=== PATIENT | female | born 1940 | race Hispanic/Latino ===

== ENCOUNTER 2017-01-04 07:49 | Day surgery (SDC) | payer MEDICARE ==
[2017-01-03 07:47] VITALS: BMI 39.1
[2017-01-04 08:21] LABS: ADD MANUAL DIFF? NO; BASO # 0.01 K/mm3 (0.0-2.0); BASO % 0.2 % (0.0-3.0); EOS # 0.2 (0.0-0.7); EOS % 3.1 % (1.5-5.0); GRAN # 3.27 (1.4-6.5); LYMPH # 0.9 (1.2-3.4); MEAN CELL VOLUME 89.1 fL (80.0-105.0); MEAN CORPUSCULAR HEMOGLOBIN 29.6 pg (25.0-35.0); MEAN CORPUSCULAR HGB CONC 33.3 g/dl (31.0-37.0); MEAN PLATELET VOLUME 9.6 fl (7.0-11.0); MONO # 0.6 (0.1-0.6); MONO % 11.7 % (1.0-6.0); PLATELET COUNT 227 10^3/uL (120.0-450.0); RED CELL DISTRIBUTION WIDTH 15.6 % (11.5-14.5); WHITE BLOOD COUNT 4.9 10^3/ul (4.5-11.0)
[2017-01-04 08:31] LABS: INR 0.97 (0.93-1.08); PARTIAL THROMBOPLASTIN TIME 27.9 Seconds (23.7-30.8)
[2017-01-04 08:39] LABS: BLOOD UREA NITROGEN 19 mg/dL (7-21); CALCIUM 9.5 mg/dL (8.4-10.5); CARBON DIOXIDE 27 mmol/L (21-33); CHLORIDE 101 mmol/L (98-107); GFR AFRICAN-AMERICAN > 60; GLUCOSE,RANDOM 103 mg/dL (70-110); POTASSIUM 4.4 mmol/L (3.6-5.0); SODIUM 137 mmol/L (132-148)
[2017-01-04] MEDS ORDERED: Lidocaine 2% Inj (20ml) ONE (10:30)
[2017-01-04] MEDS ORDERED: Iohexol 350mgl/ml 50 ML ONE (10:31)
[2017-01-04] MEDS ORDERED: Midazolam 2 MG/2 ML VIAL ONE ×2 (10:31→11:10)
[2017-01-04] MEDS ORDERED: Iodixanol 320 MG/ML 200 ML BOTTLE IV ONE (10:32)
[2017-01-04] MEDS ORDERED: Sodium Chloride 0.9% 1,000 ML IV SCH (11:45)
--- NOTE | 2017-01-04 11:48 | CARDCATH ---
PROCEDURE DATE: 01/04/2017 HISTORY: The patient is a 76-year-old woman who presents with chest pain. A stress test was abnorma l. Noninvasive testing reveals mild to moderate aortic insufficiency. Her cardiac risk factors include hypertension, hypercholesterolemia, diabetes mellitus and is a forme r heavy smoker. PROCEDURE: Left heart catheterization with coronary angiography and left ventriculogram. The right femoral artery was cannulated with a 6-Czech sheath. There were no complications. Findings on catheterization revealed a left ventricle that contracted normally. Estimated ejection f raction is 60%. Her coronary anatomy revealed a right dominant circulation. The RCA revealed intimal irregularities without significant stenosis. The left main artery was unremarkable. The circumflex artery revealed a 50% stenosis in its mid portion. The LAD was a long vessel with marked diffuse disease in the apical and distal regions of the LAD. T here was diffuse atherosclerosis throughout its course, including 1 discrete lesion that was 90-95% s tenosed, but was in the apical region of the LAD. Diagonal vessels revealed intimal irregularities without significant stenosis. Angio-Seal was used to close the femoral artery site. The patient tolerated the procedure well. IN SUMMARY: 1. The procedure revealed single-vessel coronary artery disease with the distal left anterior descen ding that was diffusely diseased, including a 90% stenoses distally. 2. This vessel cannot be angioplastied unless she fails medical therapy. The caliber of the vessel is small, is too small for a stent. 3. Left ventricular function is normal. Given these findings, we will continue treatment with medical therapy. A cardiac risk reduction prog brittney is important. We will obtain a yearly echo to follow her aortic insufficiency as well as her LV dimensions. Tello Talbert MD cc: [facility] TT: 01/04/2017 11:48:41 tn
[2017-01-04 12:07] VITALS: TEMP 97.7
[2017-01-04 14:20] VITALS: RESP 18
[2017-01-04 15:09] VITALS: O2SAT 93
[2017-01-04 16:23] VITALS: BP 139/66; PULSE 72
== END 2017-01-04 17:05 | disposition home or self-care (01) ==
LOC: CATH 07:49
PROVIDERS: ATTEND Internal Medicine Cardiovascular Disease
DX: I25.10 Atherosclerotic heart disease of native coronary artery without angina pectoris (principal); I35.1 Nonrheumatic aortic (valve) insufficiency; I10 Essential (primary) hypertension; E78.00 Pure hypercholesterolemia, unspecified; E11.8 Type 2 diabetes mellitus with unspecified complications; Z87.891 Personal history of nicotine dependence
CPT/HCPCS: 36415; 80048; 85025; 85610; 85730; 86850; 86900; 93458; 99152; C1760; C1769; C2629; J1644; J2250; J3010; J7040 ×2

== ENCOUNTER 2018-07-28 15:06 | Inpatient (IN) | payer MEDICARE ==
[2018-07-28 15:15] VITALS: BMI 25.7
--- NOTE | 2018-07-28 16:27 | ED PDOC ---
Arrival/HPI - General Chief Complaint: Psychiatric Evaluation Time Seen by Provider: 07/28/18 15:45 - History of Present Illness Narrative History of Present Illness (Text): 77 y/o F c PMHx HTN, DM, arthritis p/w acute delusions since yesterday morning at 8am. Daughter in law states that patient was normal until she received a letter from [employer] which was simply informing the patient that her change of address was received. Daughter in law states that from that time on, the patient has quickly come to believe that she was being evicted and all the people around her are "in on it." She was taken to family's neurologist Dr. Dougherty and she believes that he is not truly a doctor. Otherwise, the patient denies any pain, fever, vomiting, dyspnea. No recent change in medications. She did recently move into her new home 2 months ago. Past Medical History - Infectious Disease Hx of Infectious Diseases: None - Tetanus Immunization Tetanus Immunization: Unknown - Reproductive Menopause: Yes - Cardiac Hx Hypertension: Yes - Pulmonary Hx Chronic Obstructive Pulmonary Disease (COPD): Yes - Neurological Hx Paralysis: No - Endocrine/Metabolic Hx Diabetes Mellitus Type 2: Yes - Hematological/Oncological Hx Blood Transfusions: No Hx Blood Transfusion Reaction: No - Musculoskeletal/Rheumatological Hx Musculoskeletal Disorders: No Hx Arthritis: Yes - Psychiatric Hx Emotional Abuse: No Hx Physical Abuse: No Hx Substance Use: No - Surgical History Hx Orthopedic Surgery: Yes (LEFT KNEE) - Anesthesia Hx Anesthesia Reactions: No Hx Malignant Hyperthermia: No - Suicidal Assessment Feels Threatened In Home Enviroment: No Family/Social History Family/Social History: Unknown Family HX Smoking Status: Unknown If Ever Smoked Hx Alcohol Use: No Hx Substance Use: No Hx Substance Use Treatment: No Allergies/Home Meds Allergies/Adverse Reactions: Allergies No Known Allergies Allergy (Verified 02/12/14 12:07) Home Medications: Home Meds Medication Instructions Recorded Confirmed Losartan [Cozaar] 100 mg PO DAILY 02/12/14 04/07/18 amLODIPine [Norvasc] 5 mg PO DAILY 12/31/16 04/07/18 metFORMIN [glucOPHAGE] 500 mg PO BID 12/31/16 04/07/18 Cholecalciferol (Vitamin D3) 2,000 unit PO DAILY 01/03/17 04/07/18 [Vitamin D3] Metoprolol Tartrate [Lopressor] 50 mg PO DAILY 04/07/18 04/07/18 Mirabegron [Myrbetriq] 50 mg PO DAILY 04/07/18 04/07/18 Review of Systems - Review of Systems Systems not reviewed;Unavailable: Altered Mental Status Physical Exam - Physical Exam Narrative Physical Exam (Text): Gen: NAD Head: NC/AT Eyes: PERRL ENT: MMM Neck: Supple Chest: No tenderness CV: Regular rate Lungs: CTA b/l Abd: Soft, NT Back: No CVA tenderness Skin: No rash Extremities: Bilateral lower extremity edema, pitting Neuro: Alert, oriented x 3 Psych: Tangential speech Vital Signs Temp Pulse Resp BP Pulse Ox 07/28/18 15:12 98.0 F 74 18 131/78 98 Medical Decision Making ED Course and Treatment: EKG Sinus rhythm, 74 bpm, RBBB, unchanged from previous. No ST elevations. Glucose found to be 38, improved to 150 after D50 but without change in delusions. Troponin elevated. Awaiting CT Head prior to ASA administration. Signed out to ED night team. - RAD Interpretation Radiology Orders: 07/28/18 16:20 HEAD W/O CONTRAST [CT] Stat CHEST PORTABLE [RAD] Stat Disposition/Present on Arrival - Present on Arrival Any Indicators Present on Arrival: No History of DVT/PE: No History of Uncontrolled Diabetes: No Urinary Catheter: No History of Decub. Ulcer: No History Surgical Site Infection Following: None - Disposition Have Diagnosis and Disposition been Completed?: No Diagnosis: Elevated troponin, Hypoglycemia Disposition Time: 18:46 Condition: GUARDED Forms: [employer] (Palestinian)
[2018-07-28 16:36] LABS: GRAN # 4.97 (1.4-6.5); GRAN % 79.9 % (50.0-68.0); HEMOGLOBIN 10.8 g/dL (12.0-16.0); LYMPH # 0.8 (1.2-3.4); LYMPH % 12.9 % (22.0-35.0); MEAN CELL VOLUME 86.5 fl (80.0-105.0); MEAN CORPUSCULAR HEMOGLOBIN 28.6 pg (25.0-35.0); MEAN CORPUSCULAR HGB CONC 33.1 g/dl (31.0-37.0); MEAN PLATELET VOLUME 8.3 fl (7.0-11.0); MONO # 0.5 (0.1-0.6); MONO % 7.2 % (1.0-6.0); RBC 3.77 10^6/uL (3.5-6.1); RED CELL DISTRIBUTION WIDTH 18.9 % (11.5-14.5); WHITE BLOOD COUNT 6.2 10^3/uL (4.5-11.0)
[2018-07-28 16:52] LABS: ALB/GLOB RATIO 0.8 (1.1-1.8); ALBUMIN 2.6 g/dL (3.0-4.8); CALCIUM 8.9 mg/dL (8.4-10.5)
[2018-07-28 17:23] LABS: TROPONIN I 0.18 ng/mL
[2018-07-28] MEDS ORDERED: Dextrose 50% SYRINGE Inj (50 ml) IVP STA (17:27)
[2018-07-28 18:07] LABS: PARTIAL THROMBOPLASTIN TIME 37.4 Seconds (25.1-36.5); PROTHROMBIN TIME 11.4 SECONDS (9.4-12.5)
--- NOTE | 2018-07-28 19:01 | CT ---
Date of service: 07/28/2018 PROCEDURE: CT HEAD WITHOUT CONTRAST. HISTORY: altered mental status COMPARISON: None available. TECHNIQUE: Axial computed tomography images were obtained through the head/brain without intravenous contrast. Radiation dose: Total exam DLP = 1132.87 mGy-cm. This CT exam was performed using one or more of the following dose reduction techniques: Automated exposure control, adjustment of the mA and/or kV according to patient size, and/or use of iterative reconstruction technique. FINDINGS: HEMORRHAGE: No intracranial hemorrhage. BRAIN: No mass effect or edema. Moderate atrophy and volume loss is noted. Moderate white matter changes are noted likely represent chronic microvascular ischemic disease. VENTRICLES: Unremarkable. No hydrocephalus. CALVARIUM: Unremarkable. PARANASAL SINUSES: Unremarkable as visualized. No significant inflammatory changes. MASTOID AIR CELLS: Unremarkable as visualized. No inflammatory changes. OTHER FINDINGS: None. IMPRESSION: Moderate volume loss and chronic microvascular ischemic disease. No evidence of acute intracranial hemorrhage mass effect or midline shift.
[2018-07-28 19:10] LABS: URINE APPEARANCE SLIGHT-CLOUDY (CLEAR); URINE BILIRUBIN MODERATE (NEGATIVE); URINE BLOOD SMALL (NEGATIVE); URINE COLOR YELLOW (YELLOW); URINE GLUCOSE (UA) NEGATIVE (NEGATIVE); URINE LEUKOCYTE ESTERASE SMALL Leu/uL (NEGATIVE); URINE PROTEIN 30 mg/dL (<30 mg/dL); URINE UROBILINOGEN 0.2 E.U./dL (<1 E.U./dL)
[2018-07-28 19:16] LABS: URINE BACTERIA FEW (NEG); URINE HYALINE CAST 0 - 2 /hpf
[2018-07-28 19:32] LABS: BARBITURATES, UR NEGATIVE (NEGATIVE); BENZODIAZEPINES, UR NEGATIVE (NEGATIVE); OPIATES, UR NEGATIVE (NEGATIVE); PHENCYCLIDINE, UR NEGATIVE (NEGATIVE)
--- NOTE | 2018-07-28 19:34 | ED PDOC ---
Physical Exam Vital Signs Temp Pulse Resp BP Pulse Ox 07/28/18 15:12 98.0 F 74 18 131/78 98 Medical Decision Making ED Course and Treatment: 07/28/18 19:33 Patient endorsed to me by . pending CT scan result. Patient has a history of recent paranoid and delusional behaviour and was advised to come to Emergency department for further evaluation. Patient had an EKG showing RBBB noted earlier and positive troponin. Still waiting CT result prior to final disposition. 07/28/18 19:47 Discussed case with biomedical field service engineer and , who is aware of and agrees to admit patient under hospitalist service. Discussed with and will heparinize. 07/28/18 20:01 CT HEAD WITHOUT CONTRAST: Dictator : Elder Flores MD FINDINGS: HEMORRHAGE:No intracranial hemorrhage. BRAIN:No mass effect or edema. Moderate atrophy and volume loss is noted. Moderate white matter changes are noted likely represent chronic microvascular ischemic disease. VENTRICLES:Unremarkable. No hydrocephalus. CALVARIUM:Unremarkable. PARANASAL SINUSES:Unremarkable as visualized. No significant inflammatory changes. MASTOID AIR CELLS:Unremarkable as visualized. No inflammatory changes. OTHER FINDINGS:None. IMPRESSION: Moderate volume loss and chronic microvascular ischemic disease. No evidence of acute intracranial hemorrhage mass effect or midline shift. - Lab Interpretations Lab Results: 07/28/18 16:28 07/28/18 16:28 Lab Results 07/28/18 19:05: Urine Opiates Screen Negative, Urine Methadone Screen Negative, Ur Barbiturates Screen Negative, Ur Phencyclidine Scrn Negative, Ur Amphetamines Screen Negative, U Benzodiazepines Scrn Negative, U Oth Cocaine Metabols Negati ve, U Cannabinoids Screen Pending 07/28/18 19:05: Urine Color Yellow, Urine Appearance Slight-cloudy, Urine pH 6.0, Ur Specific [place] 1.025, Urine Protein 30 H, Urine Glucose (UA) Negative, Urine Ketones 15 H, Urine Blood Small H, Urine Nitrate Negative, Urine Bilirubin Moderate H, Urine Urobilinogen 0.2, Ur Leukocyte Esterase Small H, Urine RBC 1 - 3, Urine WBC 2 - 5, Ur Epithelial Cells 1 - 3, Urine Bacteria Few, Hyaline Casts 0 - 2 07/28/18 17:54: POC Glucose (mg/dL) 150 H 11/05/18 17:46: PT 11.4, INR 1.00, APTT 37.4 H 07/28/18 16:28: Sodium 135, Potassium 3.7, Chloride 102, Carbon Dioxide 21, Anion Gap 16, BUN 29 H, Creatinine 1.3 H, Est GFR ( Amer) 48, Est GFR (Non-Af Amer) 40, Random Glucose 38 L* D, Calcium 8.9, Phosphorus 3.4, Magnesium 2.2, Total Bilirubin 0.5, AST 42 H D, ALT 47, Alkaline Phosphatase 99, Total Creatine Kinase 98, Troponin I 0.18 H*, Total Protein 5.9, Albumin 2.6 L, Globulin 3.3, Albumin/Globulin Ratio 0.8 L, Lipase 230, B-Hydroxybutyrate Pending 07/28/18 16:28: WBC 6.2, RBC 3.77, Hgb 10.8 L, Hct 32.6 L, MCV 86.5, MCH 28.6, MCHC 33.1, RDW 18.9 H, Plt Count 170, MPV 8.3, Gran % 79.9 H, Lymph % (Auto) 12.9 L, [place] % (Auto) 7.2 H, Eos % (Auto) 0.0 L, Baso % (Auto) 0.0, Gran # 4.97, Lymph # (Auto) 0.8 L, [place] # (Auto) 0.5, Eos # (Auto) 0.0, Baso # (Auto) 0.00 - RAD Interpretation Radiology Orders: 07/28/18 16:20 HEAD W/O CONTRAST [CT] Stat CHEST PORTABLE [RAD] Stat - Medication Orders Current Medication Orders: Discontinued Medications Dextrose (Dextrose 50% Inj) 50 ml IVP STAT STA Stop: 07/28/18 17:28 Last Admin: 07/28/18 18:37 Dose: 50 ml IVP Administration Document 07/28/18 18:37 MR (Rec: 07/28/18 18:37 MR [id number]) Charges for Administration # of IVP Administrations 1 - Scribe Statement The provider has reviewed the documentation as recorded by the Scribe Jez Shay Provider Scribe Attestation: All medical record entries made by the Scribe were at my direction and personally dictated by me. I have reviewed the chart and agree that the record accurately reflects my personal performance of the history, physical exam, medical decision making, and the department course for this patient. I have also personally directed, reviewed, and agree with the discharge instructions and disposition. Disposition/Present on Arrival - Present on Arrival Any Indicators Present on Arrival: No History of DVT/PE: No History of Uncontrolled Diabetes: No Urinary Catheter: No History of Decub. Ulcer: No History Surgical Site Infection Following: None - Disposition Have Diagnosis and Disposition been Completed?: Yes Diagnosis: Elevated troponin, Hypoglycemia, Psychosis, NSTEMI (non-ST elevated myocardial infarction) Disposition: HOSPITALIZED Disposition Time: 19:55 Patient Plan: Admission Patient Problems: Current Active Problems Problem Status Onset Elevated troponin Acute Hypoglycemia Acute Psychosis Acute Condition: GUARDED Forms: [employer] (Nauruan)
[2018-07-28] MEDS: Heparin25000 units/250ml 1/2NS 25,000 UNITS/250 ML BAG IV SCH (20:46)
[2018-07-28 22:04] LABS: IRON 23 ug/dL (45-180)
--- NOTE | 2018-07-28 22:07 | CP.PCM.HP ---
History of Present Illness - History of Present Illness History of Present Illness: Saul Evans DO, PGY-1 Hospitalist Admission History and Physical for Dr. Aaron Bautista CC: Altered mental status HPI: Ms. Arango is a 77 yo F with known PMH of HTN, DM2, and OA who presents to ED with family for altered mental status and hallucinations/delusions. Most of history was obtained from prior records as family was not at bedside at the time of my examination. Per family, Ms. Arango had no significant dementia at baseline but suddenly began having worsening delusions this AM. Her daughter in law stated that patient believed that she was being evicted and all the people around her are "in on it." They brought her in to her regular neurologist, Dr. Dougherty who she did not recognize and stated was not her physician. At time of examination, she denied KELLY, blurred vision, CP, SOB, and nausea/vomiting/abdomi nal pain. PMH: HTN, DM2, OA, COPD PSH: L TKA NKA Fam Hx, Soc Hx: unknown, unattainable due to patient altered mental status Home medications: metformin 500 BID, norvasc 5 daily, myrbetriq 50 daily, cozaar 100 daily, lopressor 50 daily, cholcalciferol 2000 u daily Present on Admission - Present on Admission Any Indicators Present on Admission: No History of DVT/PE: No History of Uncontrolled Diabetes: No Urinary Catheter: No Decubitus Ulcer Present: No Review of Systems - Review of Systems Systems not reviewed;Unavailable: Altered Mental Status Past Patient History - Infectious Disease Hx of Infectious Diseases: None - Tetanus Immunizations Tetanus Immunization: Unknown - Past Social History Smoking Status: Unknown If Ever Smoked - CARDIAC Hx Hypertension: Yes - PULMONARY Hx Chronic Obstructive Pulmonary Disease (COPD): Yes - NEUROLOGICAL Hx Paralysis: No - ENDOCRINE/METABOLIC Hx Diabetes Mellitus Type 2: Yes - HEMATOLOGICAL/ONCOLOGICAL Hx Blood Transfusions: No Hx Blood Transfusion Reaction: No - MUSCULOSKELETAL/RHEUMATOLOGICAL Hx Musculoskeletal Disorders: No Hx Arthritis: Yes - PSYCHIATRIC Hx Emotional Abuse: No Hx Physical Abuse: No Hx Substance Use: No - SURGICAL HISTORY Hx Orthopedic Surgery: Yes (LEFT KNEE) - ANESTHESIA Hx Anesthesia Reactions: No Hx Malignant Hyperthermia: No Meds Allergies/Adverse Reactions: Allergies Allergy/AdvReac Type Severity Reaction Status Date / Time No Known Allergies Allergy Verified 02/12/14 12:07 Physical Exam - Constitutional Appears: Confused Additional comments: alert to person, place, but not to time or situation. Was able to state who president is but kept repeatedly saying that "I know you're all keeping me and my sister here no matter what we want." She states that "you are all in on this, I know you're keeping my sister too." - Head Exam Head Exam: ATRAUMATIC, NORMOCEPHALIC - Eye Exam Eye Exam: EOMI, Normal appearance, PERRL - ENT Exam ENT Exam: Mucous Membranes Moist - Neck Exam Neck exam: Positive for: Full Rom, Normal Inspection - Respiratory Exam Respiratory Exam: Clear to Auscultation Bilateral, NORMAL BREATHING PATTERN. absent: Accessory Muscle Use, Decreased Breath Sounds, Rhonchi, Wheezes, Respiratory Distress - Cardiovascular Exam Cardiovascular Exam: REGULAR RHYTHM, RRR, +S1, +S2. absent: Diastolic murmur, Gallop, Rubs, Systolic Murmur - GI/Abdominal Exam GI & Abdominal Exam: Normal Bowel Sounds, Soft. absent: Guarding - Extremities Exam Extremities exam: Positive for: normal inspection. Negative for: pedal edema - Back Exam Back exam: NORMAL INSPECTION - Neurological Exam Neurological exam: Alert, Altered Additional comments: no focal neurological deficit, moving all extremities past midline spontaneously, non-cooperative with CN exam - Psychiatric Exam Psychiatric exam: Agitated - Skin Skin Exam: Dry, Intact, Warm Results - Vital Signs Recent Vital Signs: Last Vital Signs Temp 98.0 F 07/28/18 15:12 Pulse 83 07/28/18 21:44 Resp 18 07/28/18 21:44 BP 117/46 L 07/28/18 21:44 Pulse Ox 99 07/28/18 21:44 - Labs Result Diagrams: 07/28/18 16:28 07/28/18 16:28 Labs: Laboratory Results - last 24 hr 07/28/18 07/28/18 07/28/18 16:28 16:28 17:46 WBC 6.2 RBC 3.77 Hgb 10.8 L Hct 32.6 L MCV 86.5 MCH 28.6 MCHC 33.1 RDW 18.9 H Plt Count 170 MPV 8.3 Gran % 79.9 H Lymph % (Auto) 12.9 L [place] % (Auto) 7.2 H Eos % (Auto) 0.0 L Baso % (Auto) 0.0 Gran # 4.97 Lymph # (Auto) 0.8 L [place] # (Auto) 0.5 Eos # (Auto) 0.0 Baso # (Auto) 0.00 PT 11.4 INR 1.00 APTT 37.4 H Sodium 135 Potassium 3.7 Chloride 102 Carbon Dioxide 21 Anion Gap 16 BUN 29 H Creatinine 1.3 H Est GFR ( Amer) 48 Est GFR (Non-Af Amer) 40 POC Glucose (mg/dL) Random Glucose 38 L* D Calcium 8.9 Phosphorus 3.4 Magnesium 2.2 Total Bilirubin 0.5 AST 42 H D ALT 47 Alkaline Phosphatase 99 Ammonia Total Creatine Kinase 98 Troponin I 0.18 H* Total Protein 5.9 Albumin 2.6 L Globulin 3.3 Albumin/Globulin Ratio 0.8 L Lipase 230 Urine Color Urine Appearance Urine pH Ur Specific [place] Urine Protein Urine Glucose (UA) Urine Ketones Urine Blood Urine Nitrate Urine Bilirubin Urine Urobilinogen Ur Leukocyte Esterase Urine RBC Urine WBC Ur Epithelial Cells Urine Bacteria Hyaline Casts Urine Opiates Screen Urine Methadone Screen Ur Barbiturates Screen Ur Phencyclidine Scrn Ur Amphetamines Screen U Benzodiazepines Scrn U Oth Cocaine Metabols U Cannabinoids Screen 07/28/18 07/28/18 07/28/18 17:54 19:05 19:05 WBC RBC Hgb Hct MCV MCH MCHC RDW Plt Count MPV Gran % Lymph % (Auto) [place] % (Auto) Eos % (Auto) Baso % (Auto) Gran # Lymph # (Auto) [place] # (Auto) Eos # (Auto) Baso # (Auto) PT INR APTT Sodium Potassium Chloride Carbon Dioxide Anion Gap BUN Creatinine Est GFR ( Amer) Est GFR (Non-Af Amer) POC Glucose (mg/dL) 150 H Random Glucose Calcium Phosphorus Magnesium Total Bilirubin AST ALT Alkaline Phosphatase Ammonia Total Creatine Kinase Troponin I Total Protein Albumin Globulin Albumin/Globulin Ratio Lipase Urine Color Yellow Urine Appearance Slight-cloudy Urine pH 6.0 Ur Specific [place] 1.025 Urine Protein 30 H Urine Glucose (UA) Negative Urine Ketones 15 H Urine Blood Small H Urine Nitrate Negative Urine Bilirubin Moderate H Urine Urobilinogen 0.2 Ur Leukocyte Esterase Small H Urine RBC 1 - 3 Urine WBC 2 - 5 Ur Epithelial Cells 1 - 3 Urine Bacteria Few Hyaline Casts 0 - 2 Urine Opiates Screen Negative Urine Methadone Screen Negative Ur Barbiturates Screen Negative Ur Phencyclidine Scrn Negative Ur Amphetamines Screen Negative U Benzodiazepines Scrn Negative U Oth Cocaine Metabols Negative U Cannabinoids Screen Negative 07/28/18 20:30 WBC RBC Hgb Hct MCV MCH MCHC RDW Plt Count MPV Gran % Lymph % (Auto) [place] % (Auto) Eos % (Auto) Baso % (Auto) Gran # Lymph # (Auto) [place] # (Auto) Eos # (Auto) Baso # (Auto) PT INR APTT Sodium Potassium Chloride Carbon Dioxide Anion Gap BUN Creatinine Est GFR ( Amer) Est GFR (Non-Af Amer) POC Glucose (mg/dL) Random Glucose Calcium Phosphorus Magnesium Total Bilirubin AST ALT Alkaline Phosphatase Ammonia < 9 L Total Creatine Kinase Troponin I Total Protein Albumin Globulin Albumin/Globulin Ratio Lipase Urine Color Urine Appearance Urine pH Ur Specific [place] Urine Protein Urine Glucose (UA) Urine Ketones Urine Blood Urine Nitrate Urine Bilirubin Urine Urobilinogen Ur Leukocyte Esterase Urine RBC Urine WBC Ur Epithelial Cells Urine Bacteria Hyaline Casts Urine Opiates Screen Urine Methadone Screen Ur Barbiturates Screen Ur Phencyclidine Scrn Ur Amphetamines Screen U Benzodiazepines Scrn U Oth Cocaine Metabols U Cannabinoids Screen - EKG Data EKG Interpreted by: ER Physician EKG shows normal: Sinus rhythm Rate: Normal - EKG Data Interpretation: Other (RBBB) Assessment & Plan - Assessment and Plan (Free Text) Assessment: 77 yo F with PMH of HTN, DM2, OA, and COPD presents to ED with family for AMS, delusions, and hallucinations. Plan: 1. AMS May be 2/2 delirium vs worsened chronic dementia vs CVA/TIA vs metabolic disturbance vs hypoglycemia Currently not overly agitated or pulling, consider haldol or geodon as needed if worsening or becomes disruptive Was noted to be hypoglycemic on admission to ER, replaced with D50, repeat glucose was 150 Continue to monitor blood sugar closely Monitor electrolytes closely and replete as needed Ammonia level < 9 CT head with chronic microvascular changes and atrophy without signs of midlife shift or other acute findings NPO until swallow eval F/u barrientos cx, procal Additional w/u per neurology recs Psychiatry also consulted, recs appreciated 2. Troponin elevation Mildly elevated at 0.18 May be 2/2 demand ischemia Trend troponin q6h x 2 EKG with RBBB, may represent new ischemia Repeat EKG in AM Heparin drip started Cardiology consulted, recs appreciated 3. Normocytic anemia Iron studies, retic count, B12, folate Monitor H/H closely 4. Hypoglycemia on admission Monitor blood sugar closely Hypoglycemic protocol ISS, POC fingerstick glucose ACHS DVT/GI PPX: SC heparin, protonix Full Code NPO pending swallow eval Monitor on telemetry Case and plan reviewed and discussed with my attending Dr. Aaron Evans, DO IM Resident PGY-1
[2018-07-28 22:14] LABS: % IRON SATURATION 14 % (20-55); TOTAL IRON BINDING CAPACITY 160 ug/dL (265-497)
[2018-07-28] MEDS: Insulin Reg-MEDIUM-Coverage SC SCH (22:39)
[2018-07-28] MEDS: Dextrose 50% SYRINGE Inj (50 ml) IV PRN (22:46)
[2018-07-29] MEDS ORDERED: Sodium Chloride 0.9% 1,000 ML IV SCH (00:15)
[2018-07-29] MEDS: Pantoprazole 40 mg EC Tab PO SCH (05:25)
[2018-07-29] MEDS: Dextrose 50% SYRINGE Inj (50 ml) IV PRN (05:55)
[2018-07-29] MEDS: Dextrose 5%/0.45% NS 1,000 ML IV SCH ×2 (06:44→21:06)
[2018-07-29 06:50] LABS: ALB/GLOB RATIO 0.7 (1.1-1.8); ALT/SGPT 38 U/L (7-56); AST/SGOT 35 U/L (14-36); BLOOD UREA NITROGEN 27 mg/dL (7-21); CALCIUM 8.3 mg/dL (8.4-10.5); GFR NON-AFRICAN AMERICAN 54; HDL CHOLESTEROL 50 mg/dL (29-60)
[2018-07-29 07:00] LABS: LDL CHOLESTEROL 43 mg/dL (0-129)
[2018-07-29 07:01] LABS: EOS % 0.6 % (1.5-5.0); GRAN # 2.68 (1.4-6.5); HEMOGLOBIN 9.9 g/dL (12.0-16.0); LYMPH # 0.6 (1.2-3.4); LYMPH % 15.7 % (22.0-35.0); MEAN CELL VOLUME 85.8 fl (80.0-105.0); MEAN CORPUSCULAR HEMOGLOBIN 28.1 pg (25.0-35.0); MEAN CORPUSCULAR HGB CONC 32.8 g/dl (31.0-37.0); MONO # 0.4 (0.1-0.6); MONO % 9.7 % (1.0-6.0); RBC 3.52 10^6/uL (3.5-6.1); RED CELL DISTRIBUTION WIDTH 19.1 % (11.5-14.5); WHITE BLOOD COUNT 3.6 10^3/uL (4.5-11.0)
[2018-07-29 07:22] LABS: TROPONIN I 0.14 ng/mL
--- NOTE | 2018-07-29 07:45 | CP.PCM.CON ---
<BreezyWalter - Last Filed: 07/29/18 14:46> History of Present Illness - History of Present Illness History of Present Illness: Walter Tijerina- Internal Medicine Resident- Consult Note on Behalf of Neurology Team Subjective: CC: Altered mental status HPI: Patient is a 77 year old female with a past medical history of HTN, DM2, and OA who was admitted for evaluation and treatment of altered mental status and hallucinations/delusions. Neurology was consulted for management of altered mental status. Patient seen and examined at bedside. As per records the AMS was sudden on onset with specific provoking event. Further subjective data cannot be ascertained at this time because the patient will not cooperate with questions. 12 point ROS cannot be ascertained at this time secondary to altered mental status Past medical history: HTN, DM2, OA, COPD Past surgical history: L TKA Allergies: NKA Social history: cannot be ascertained Family history: cannot be ascertained Home meds: please see medication reconciliation Neurologist: Dr. Dougherty Physical Examination: - Constitutional Appears: Well, Non-toxic, No Acute Distress - Head Exam Head Exam: ATRAUMATIC, NORMAL INSPECTION, NORMOCEPHALIC - Eye Exam Eye Exam: EOMI, Normal appearance - ENT Exam ENT Exam: Mucous Membranes Moist, Normal Exam, No tongue laceration - Neck Exam Neck exam: Positive for: Full Rom, Normal Inspection - Respiratory Exam Respiratory Exam: Clear to Auscultation Bilateral, NORMAL BREATHING PATTERN. absent: Accessory Muscle Use, Rales, Rhonchi, Wheezes, Respiratory Distress - Cardiovascular Exam Cardiovascular Exam: REGULAR RHYTHM, +S1, +S2 - GI/Abdominal Exam GI & Abdominal Exam: Normal Bowel Sounds, Soft. absent: Distended, Firm, Gu arding, Rebound, Rigid, Tenderness - Extremities Exam Extremities exam: Positive for: full ROM, normal capillary refill, normal inspection, pedal pulses present - Neurological Exam Neurological exam: awake, alert, orientated cannot be determined as patient is uncooperative, responds to verbal stimuli, answers questions inappropriately, follows commands, moves extremities past midline, muscle strength 5/5 bilateral upper and lower extremities, full neuro exam cannot be determined as patient is uncooperative - Psychiatric Exam Psychiatric exam: uncooperative - Skin Skin Exam: Intact, Normal Color, Warm Assessment and Plan: Patient is a 77 year old female with a past medical history of HTN, DM2, and OA who was admitted for evaluation and treatment of altered mental status and hallucinations/delusions. Neurology was consulted for management of altered mental status. Altered Mental Status - Likely multifactoral: infection vs. electrolyte abnormality vs. delirium vs. medication induced -07/28/[address] without contrast- Moderate volume loss and chronic microvascular ischemic disease. No evidence of acute intracranial hemorrhage mass effect or midline shift. - Brain MRI with and without contrast to rule out stroke- ordered and pending - likely secondary to psychotic break- recommend follow up with psych evaluation Patient case discussed with and plan approved by attending physician, Dr. Morales. Past Patient History - Infectious Disease Hx of Infectious Diseases: None - Tetanus Immunizations Tetanus Immunization: Unknown - Past Social History Smoking Status: Former Smoker - CARDIAC Hx Cardiac Disorders: Yes Hx Hypertension: Yes - PULMONARY Hx Respiratory Disorders: Yes Hx Chronic Obstructive Pulmonary Disease (COPD): Yes - NEUROLOGICAL Hx Neurological Disorder: Yes (paranoid, delusional) - HEENT Hx HEENT Problems: No - RENAL Hx Chronic Kidney Disease: No - ENDOCRINE/METABOLIC Hx Endocrine Disorders: Yes Hx Diabetes Mellitus Type 2: Yes - HEMATOLOGICAL/ONCOLOGICAL Hx Blood Disorders: No - INTEGUMENTARY Hx Dermatological Problems: No - MUSCULOSKELETAL/RHEUMATOLOGICAL Hx Musculoskeletal Disorders: Yes Hx Arthritis: Yes Hx Falls: No Hx Osteoarthritis: Yes - GASTROINTESTINAL Hx Gastrointestinal Disorders: No - GENITOURINARY/GYNECOLOGICAL Hx Genitourinary Disorders: No - PSYCHIATRIC Hx Psychophysiologic Disorder: Yes Hx Emotional Abuse: No Hx Paranoia: Yes (acute) Hx Physical Abuse: No - SURGICAL HISTORY Hx Surgeries: Yes Hx Orthopedic Surgery: Yes (LEFT KNEE) - ANESTHESIA Hx Anesthesia Reactions: No Hx Malignant Hyperthermia: No Meds Allergies/Adverse Reactions: Allergies Allergy/AdvReac Type Severity Reaction Status Date / Time No Known Allergies Allergy Verified 02/12/14 12:07 - Medications Medications: Current Medications Amlodipine Besylate (Norvasc) 5 mg PO DAILY ANGELES Cholecalciferol (Vitamin D) 2,000 intlu PO DAILY ANGELES Dextrose (Dextrose 50% Inj) 0 ml IV STAT PRN; 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 Reason: Hypoglycemia Protocol Last Admin: 07/29/18 05:55 Dose: 25 ml Heparin Sodium/Sodium Chloride (Heparin 51064 Units/250ml 1/2 Normal Saline) 25,000 units in 250 mls @ 7.893 mls/hr IV .Q24H ANGELES; Protocol Last Titration: 07/29/18 05:08 Dose: 9 units/kg/hr, 5.919 mls/hr Dextrose (Dextrose 5% In Water 1000 Ml) 1,000 mls @ 0 mls/hr IV .Q0M PRN; 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 Reason: Hypoglycemia Protocol Last Admin: 07/29/18 05:55 Dose: 100 mls/hr Dextrose/Sodium Chloride (Dextrose 5%/0.45% Ns 1000 Ml) 1,000 mls @ 100 mls/hr IV .Q10H ANGELES Last Admin: 07/29/18 06:44 Dose: 100 mls/hr Insulin Human Regular (Humulin R Med) 0 units SC ACHS ANGELES; Protocol Last Admin: 07/28/18 22:39 Dose: Not Given Metoprolol Tartrate (Lopressor) 50 mg PO DAILY ANGELES Pantoprazole Sodium (Protonix Ec Tab) 40 mg PO 0600 [facility] Last Admin: 07/29/18 05:25 Dose: Not Given Results - Vital Signs Recent Vital Signs: Last Vital Signs Temp 97.4 F L 07/29/18 06:00 Pulse 57 L 07/29/18 06:00 Resp 19 07/29/18 06:00 BP 118/60 07/29/18 06:00 Pulse Ox 98 07/29/18 06:00 - Labs Result Diagrams: 07/29/18 06:00 07/29/18 06:00 Labs: Laboratory Results - last 24 hr 07/28/18 07/28/18 07/28/18 16:28 16:28 16:28 WBC 6.2 RBC 3.77 Hgb 10.8 L Hct 32.6 L MCV 86.5 MCH 28.6 MCHC 33.1 RDW 18.9 H Plt Count 170 MPV 8.3 Gran % 79.9 H Lymph % (Auto) 12.9 L [place] % (Auto) 7.2 H Eos % (Auto) 0.0 L Baso % (Auto) 0.0 Gran # 4.97 Lymph # (Auto) 0.8 L [place] # (Auto) 0.5 Eos # (Auto) 0.0 Baso # (Auto) 0.00 Retic Count PT INR APTT Sodium 135 Potassium 3.7 Chloride 102 Carbon Dioxide 21 Anion Gap 16 BUN 29 H Creatinine 1.3 H Est GFR ( Amer) 48 Est GFR (Non-Af Amer) 40 POC Glucose (mg/dL) Random Glucose 38 L* D Calcium 8.9 Phosphorus 3.4 Magnesium 2.2 Iron 23 L TIBC 160 L % Saturation 14 L Total Bilirubin 0.5 AST 42 H D ALT 47 Alkaline Phosphatase 99 Ammonia Total Creatine Kinase 98 Troponin I 0.18 H* Total Protein 5.9 Albumin 2.6 L Globulin 3.3 Albumin/Globulin Ratio 0.8 L Triglycerides Cholesterol LDL Cholesterol Direct HDL Cholesterol Lipase 230 TSH 3rd Generation Urine Color Urine Appearance Urine pH Ur Specific [place] Urine Protein Urine Glucose (UA) Urine Ketones Urine Blood Urine Nitrate Urine Bilirubin Urine Urobilinogen Ur Leukocyte Esterase Urine RBC Urine WBC Ur Epithelial Cells Urine Bacteria Hyaline Casts Urine Opiates Screen Urine Methadone Screen Ur Barbiturates Screen Ur Phencyclidine Scrn Ur Amphetamines Screen U Benzodiazepines Scrn U Oth Cocaine Metabols U Cannabinoids Screen 07/28/18 07/28/18 07/28/18 17:46 17:54 19:05 WBC RBC Hgb Hct MCV MCH MCHC RDW Plt Count MPV Gran % Lymph % (Auto) [place] % (Auto) Eos % (Auto) Baso % (Auto) Gran # Lymph # (Auto) [place] # (Auto) Eos # (Auto) Baso # (Auto) Retic Count PT 11.4 INR 1.00 APTT 37.4 H Sodium Potassium Chloride Carbon Dioxide Anion Gap BUN Creatinine Est GFR ( Amer) Est GFR (Non-Af Amer) POC Glucose (mg/dL) 150 H Random Glucose Calcium Phosphorus Magnesium Iron TIBC % Saturation Total Bilirubin AST ALT Alkaline Phosphatase Ammonia Total Creatine Kinase Troponin I Total Protein Albumin Globulin Albumin/Globulin Ratio Triglycerides Cholesterol LDL Cholesterol Direct HDL Cholesterol Lipase TSH 3rd Generation Urine Color Yellow Urine Appearance Slight-cloudy Urine pH 6.0 Ur Specific [place] 1.025 Urine Protein 30 H Urine Glucose (UA) Negative Urine Ketones 15 H Urine Blood Small H Urine Nitrate Negative Urine Bilirubin Moderate H Urine Urobilinogen 0.2 Ur Leukocyte Esterase Small H Urine RBC 1 - 3 Urine WBC 2 - 5 Ur Epithelial Cells 1 - 3 Urine Bacteria Few Hyaline Casts 0 - 2 Urine Opiates Screen Urine Methadone Screen Ur Barbiturates Screen Ur Phencyclidine Scrn Ur Amphetamines Screen U Benzodiazepines Scrn U Oth Cocaine Metabols U Cannabinoids Screen 07/28/18 07/28/18 07/28/18 19:05 20:30 22:38 WBC RBC Hgb Hct MCV MCH MCHC RDW Plt Count MPV Gran % Lymph % (Auto) [place] % (Auto) Eos % (Auto) Baso % (Auto) Gran # Lymph # (Auto) [place] # (Auto) Eos # (Auto) Baso # (Auto) Retic Count PT INR APTT Sodium Potassium Chloride Carbon Dioxide Anion Gap BUN Creatinine Est GFR ( Amer) Est GFR (Non-Af Amer) POC Glucose (mg/dL) 64 L Random Glucose Calcium Phosphorus Magnesium Iron TIBC % Saturation Total Bilirubin AST ALT Alkaline Phosphatase Ammonia < 9 L Total Creatine Kinase Troponin I Total Protein Albumin Globulin Albumin/Globulin Ratio Triglycerides Cholesterol LDL Cholesterol Direct HDL Cholesterol Lipase TSH 3rd Generation Urine Color Urine Appearance Urine pH Ur Specific [place] Urine Protein Urine Glucose (UA) Urine Ketones Urine Blood Urine Nitrate Urine Bilirubin Urine Urobilinogen Ur Leukocyte Esterase Urine RBC Urine WBC Ur Epithelial Cells Urine Bacteria Hyaline Casts Urine Opiates Screen Negative Urine Methadone Screen Negative Ur Barbiturates Screen Negative Ur Phencyclidine Scrn Negative Ur Amphetamines Screen Negative U Benzodiazepines Scrn Negative U Oth Cocaine Metabols Negative U Cannabinoids Screen Negative 07/28/18 07/29/18 07/29/18 23:24 00:40 02:45 WBC RBC Hgb Hct MCV MCH MCHC RDW Plt Count MPV Gran % Lymph % (Auto) [place] % (Auto) Eos % (Auto) Baso % (Auto) Gran # Lymph # (Auto) [place] # (Auto) Eos # (Auto) Baso # (Auto) Retic Count PT INR APTT 143.5 H* Sodium Potassium Chloride Carbon Dioxide Anion Gap BUN Creatinine Est GFR ( Amer) Est GFR (Non-Af Amer) POC Glucose (mg/dL) 135 H Random Glucose Calcium Phosphorus Magnesium Iron TIBC % Saturation Total Bilirubin AST ALT Alkaline Phosphatase Ammonia Total Creatine Kinase Troponin I 0.14 H* D Total Protein Albumin Globulin Albumin/Globulin Ratio Triglycerides Cholesterol LDL Cholesterol Direct HDL Cholesterol Lipase TSH 3rd Generation Urine Color Urine Appearance Urine pH Ur Specific [place] Urine Protein Urine Glucose (UA) Urine Ketones Urine Blood Urine Nitrate Urine Bilirubin Urine Urobilinogen Ur Leukocyte Esterase Urine RBC Urine WBC Ur Epithelial Cells Urine Bacteria Hyaline Casts Urine Opiates Screen Urine Methadone Screen Ur Barbiturates Screen Ur Phencyclidine Scrn Ur Amphetamines Screen U Benzodiazepines Scrn U Oth Cocaine Metabols U Cannabinoids Screen 07/29/18 07/29/1807/29/18 05:33 06:00 06:00 WBC 3.6 L D RBC 3.52 Hgb 9.9 L Hct 30.2 L MCV 85.8 MCH 28.1 MCHC 32.8 RDW 19.1 H Plt Count 151 MPV 8.0 Gran % 74.0 H Lymph % (Auto) 15.7 L [place] % (Auto) 9.7 H Eos % (Auto) 0.6 L Baso % (Auto) 0.0 Gran # 2.68 Lymph # (Auto) 0.6 L [place] # (Auto) 0.4 Eos # (Auto) 0.0 Baso # (Auto) 0.00 Retic Count 0.98 PT INR APTT Sodium 136 Potassium 3.1 L Chloride 106 Carbon Dioxide 24 Anion Gap 9 L BUN 27 H Creatinine 1.0 Est GFR ( Amer) > 60 Est GFR (Non-Af Amer) 54 POC Glucose (mg/dL) 71 Random Glucose 62 L Calcium 8.3 L Phosphorus 2.4 L Magnesium 2.1 Iron TIBC % Saturation Total Bilirubin 0.5 AST 35 ALT 38 Alkaline Phosphatase 77 Ammonia Total Creatine Kinase Troponin I 0.14 H* Total Protein 4.9 L Albumin 2.0 L Globulin 2.9 Albumin/Globulin Ratio 0.7 L Triglycerides 66 Cholesterol 97 L LDL Cholesterol Direct 43 HDL Cholesterol 50 Lipase TSH 3rd Generation Urine Color Urine Appearance Urine pH Ur Specific [place] Urine Protein Urine Glucose (UA) Urine Ketones Urine Blood Urine Nitrate Urine Bilirubin Urine Urobilinogen Ur Leukocyte Esterase Urine RBC Urine WBC Ur Epithelial Cells Urine Bacteria Hyaline Casts Urine Opiates Screen Urine Methadone Screen Ur Barbiturates Screen Ur Phencyclidine Scrn Ur Amphetamines Screen U Benzodiazepines Scrn U Oth Cocaine Metabols U Cannabinoids Screen 07/29/18 07/29/18 06:00 06:44 WBC RBC Hgb Hct MCV MCH MCHC RDW Plt Count MPV Gran % Lymph % (Auto) [place] % (Auto) Eos % (Auto) Baso % (Auto) Gran # Lymph # (Auto) [place] # (Auto) Eos # (Auto) Baso # (Auto) Retic Count PT INR APTT Sodium Potassium Chloride Carbon Dioxide Anion Gap BUN Creatinine Est GFR ( Amer) Est GFR (Non-Af Amer) POC Glucose (mg/dL) 123 H Random Glucose Calcium Phosphorus Magnesium Iron TIBC % Saturation Total Bilirubin AST ALT Alkaline Phosphatase Ammonia Total Creatine Kinase Troponin I Total Protein Albumin Globulin Albumin/Globulin Ratio Triglycerides Cholesterol LDL Cholesterol Direct HDL Cholesterol Lipase TSH 3rd Generation 4.33 Urine Color Urine Appearance Urine pH Ur Specific [place] Urine Protein Urine Glucose (UA) Urine Ketones Urine Blood Urine Nitrate Urine Bilirubin Urine Urobilinogen Ur Leukocyte Esterase Urine RBC Urine WBC Ur Epithelial Cells Urine Bacteria Hyaline Casts Urine Opiates Screen Urine Methadone Screen Ur Barbiturates Screen Ur Phencyclidine Scrn Ur Amphetamines Screen U Benzodiazepines Scrn U Oth Cocaine Metabols U Cannabinoids Screen <Shital Morales - Last Filed: 07/29/18 22:50> Meds - Medications Medications: Current Medications Amlodipine Besylate (Norvasc) 5 mg PO DAILY [facility] Last Admin: 07/29/18 09:37 Dose: Not Given Aspirin (Ecotrin) 81 mg PO 0800 [facility] Cholecalciferol (Vitamin D) 2,000 intlu PO DAILY [facility] Last Admin: 07/29/18 09:37 Dose: Not Given Dextrose (Dextrose 50% Inj) 0 ml IV STAT PRN; 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 Reason: Hypoglycemia Protocol Last Admin: 07/29/18 05:55 Dose: 25 ml Heparin Sodium/Sodium Chloride (Heparin 57822 Units/250ml 1/2 Normal Saline) 25,000 units in 250 mls @ 7.893 mls/hr IV .Q24H ANGELES; Protocol Last Admin: 07/29/18 18:17 Dose: 11 units/kg/hr, 7.235 mls/hr Dextrose (Dextrose 5% In Water 1000 Ml) 1,000 mls @ 0 mls/hr IV .Q0M PRN; 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 Reason: Hypoglycemia Protocol Last Admin: 07/29/18 05:55 Dose: 100 mls/hr Dextrose/Sodium Chloride (Dextrose 5%/0.45% Ns 1000 Ml) 1,000 mls @ 100 mls/hr IV .Q10H ANGELES Last Admin: 07/29/18 21:06 Dose: 100 mls/hr Iron Sucrose 100 mg/ Sodium (Chloride) 105 mls @ 210 mls/hr IVPB ONCE ONE Stop: 07/30/18 10:22 Insulin Human Regular (Humulin R Med) 0 units SC ACHS [facility]; Protocol Last Admin: 07/29/18 21:29 Dose: Not Given Metoprolol Tartrate (Lopressor) 50 mg PO DAILY [facility] Last Admin: 07/29/18 09:37 Dose: Not Given Pantoprazole Sodium (Protonix Ec Tab) 40 mg PO 0600 [facility] Last Admin: 07/29/18 05:25 Dose: Not Given Results - Vital Signs Recent Vital Signs: Last Vital Signs Temp 97.5 F L 07/29/18 17:40 Pulse 80 07/29/18 18:00 Resp 18 07/29/18 17:40 BP 148/78 07/29/18 17:40 Pulse Ox 98 07/29/18 06:00 - Labs Result Diagrams: 07/29/18 06:00 07/29/18 06:00 Labs: Laboratory Results - last 24 hr 07/28/18 07/28/18 07/28/18 16:28 16:28 16:28 WBC RBC Hgb Hct MCV MCH MCHC RDW Plt Count MPV Gran % Lymph % (Auto) [place] % (Auto) Eos % (Auto) Baso % (Auto) Gran # Lymph # (Auto) [place] # (Auto) Eos # (Auto) Baso # (Auto) Retic Count APTT Sodium Potassium Chloride Carbon Dioxide Anion Gap BUN Creatinine Est GFR ( Amer) Est GFR (Non-Af Amer) POC Glucose (mg/dL) Random Glucose Hemoglobin A1c Calcium Phosphorus Magnesium Transferrin 99.45 L Total Bilirubin AST ALT Alkaline Phosphatase Troponin I Total Protein Albumin Globulin Albumin/Globulin Ratio Triglycerides Cholesterol LDL Cholesterol Direct HDL Cholesterol Vitamin B12 877 Folate 7.0 TSH 3rd Generation B-Hydroxybutyrate 5.48 H 07/28/18 07/28/18 07/29/18 22:38 23:24 00:40 WBC RBC Hgb Hct MCV MCH MCHC RDW Plt Count MPV Gran % Lymph % (Auto) [place] % (Auto) Eos % (Auto) Baso % (Auto) Gran # Lymph # (Auto) [place] # (Auto) Eos # (Auto) Baso # (Auto) Retic Count APTT Sodium Potassium Chloride Carbon Dioxide Anion Gap BUN Creatinine Est GFR ( Amer) Est GFR (Non-Af Amer) POC Glucose (mg/dL) 64 L 135 H Random Glucose Hemoglobin A1c Calcium Phosphorus Magnesium Transferrin Total Bilirubin AST ALT Alkaline Phosphatase Troponin I 0.14 H* D Total Protein Albumin Globulin Albumin/Globulin Ratio Triglycerides Cholesterol LDL Cholesterol Direct HDL Cholesterol Vitamin B12 Folate TSH 3rd Generation B-Hydroxybutyrate 07/29/18 07/29/18 07/29/18 02:45 05:33 06:00 WBC 3.6 L D RBC 3.52 Hgb 9.9 L Hct 30.2 L MCV 85.8 MCH 28.1 MCHC 32.8 RDW 19.1 H Plt Count 151 MPV 8.0 Gran % 74.0 H Lymph % (Auto) 15.7 L [place] % (Auto) 9.7 H Eos % (Auto) 0.6 L Baso % (Auto) 0.0 Gran # 2.68 Lymph # (Auto) 0.6 L [place] # (Auto) 0.4 Eos # (Auto) 0.0 Baso # (Auto) 0.00 Retic Count 0.98 APTT 143.5 H* Sodium Potassium Chloride Carbon Dioxide Anion Gap BUN Creatinine Est GFR ( Amer) Est GFR (Non-Af Amer) POC Glucose (mg/dL) 71 Random Glucose Hemoglobin A1c Calcium Phosphorus Magnesium Transferrin Total Bilirubin AST ALT Alkaline Phosphatase Troponin I Total Protein Albumin Globulin Albumin/Globulin Ratio Triglycerides Cholesterol LDL Cholesterol Direct HDL Cholesterol Vitamin B12 Folate TSH 3rd Generation B-Hydroxybutyrate 07/29/18 07/29/18 07/29/18 06:00 06:00 06:00 WBC RBC Hgb Hct MCV MCH MCHC RDW Plt Count MPV Gran % Lymph % (Auto) [place] % (Auto) Eos % (Auto) Baso % (Auto) Gran # Lymph # (Auto) [place] # (Auto) Eos # (Auto) Baso # (Auto) Retic Count APTT Sodium 136 Potassium 3.1 L Chloride 106 Carbon Dioxide 24 Anion Gap 9 L BUN 27 H Creatinine 1.0 Est GFR ( Amer) > 60 Est GFR (Non-Af Amer) 54 POC Glucose (mg/dL) Random Glucose 62 L Hemoglobin A1c 5.3 Calcium 8.3 L Phosphorus 2.4 L Magnesium 2.1 Transferrin Total Bilirubin 0.5 AST 35 ALT 38 Alkaline Phosphatase 77 Troponin I 0.14 H* Total Protein 4.9 L Albumin 2.0 L Globulin 2.9 Albumin/Globulin Ratio 0.7 L Triglycerides 66 Cholesterol 97 L LDL Cholesterol Direct 43 HDL Cholesterol 50 Vitamin B12 Folate TSH 3rd Generation 4.33 B-Hydroxybutyrate 07/29/18 07/29/18 07/29/18 06:44 09:00 14:20 WBC RBC Hgb Hct MCV MCH MCHC RDW Plt Count MPV Gran % Lymph % (Auto) [place] % (Auto) Eos % (Auto) Baso % (Auto) Gran # Lymph # (Auto) [place] # (Auto) Eos # (Auto) Baso # (Auto) Retic Count APTT 54.6 H 48.9 H Sodium Potassium Chloride Carbon Dioxide Anion Gap BUN Creatinine Est GFR ( Amer) Est GFR (Non-Af Amer) POC Glucose (mg/dL) 123 H Random Glucose Hemoglobin A1c Calcium Phosphorus Magnesium Transferrin Total Bilirubin AST ALT Alkaline Phosphatase Troponin I Total Protein Albumin Globulin Albumin/Globulin Ratio Triglycerides Cholesterol LDL Cholesterol Direct HDL Cholesterol Vitamin B12 Folate TSH 3rd Generation B-Hydroxybutyrate 07/29/18 07/29/18 16:13 21:10 WBC RBC Hgb Hct MCV MCH MCHC RDW Plt Count MPV Gran % Lymph % (Auto) [place] % (Auto) Eos % (Auto) Baso % (Auto) Gran # Lymph # (Auto) [place] # (Auto) Eos # (Auto) Baso # (Auto) Retic Count APTT Sodium Potassium Chloride Carbon Dioxide Anion Gap BUN Creatinine Est GFR ( Amer) Est GFR (Non-Af Amer) POC Glucose (mg/dL) 73 75 Random Glucose Hemoglobin A1c Calcium Phosphorus Magnesium Transferrin Total Bilirubin AST ALT Alkaline Phosphatase Troponin I Total Protein Albumin Globulin Albumin/Globulin Ratio Triglycerides Cholesterol LDL Cholesterol Direct HDL Cholesterol Vitamin B12 Folate TSH 3rd Generation B-Hydroxybutyrate Assessment & Plan - Assessment and Plan (Free Text) Assessment: All medical record entries made by the resident were at my direction and personally dictated by me. I have reviewed the chart and agree that the record accurately reflects my personal performance of the history, physical exam, medical decision making, and the department course for this patient. I have also personally directed, reviewed, and agree with the discharge instructions and disposition.
[2018-07-29] MEDS: Insulin Reg-MEDIUM-Coverage SC SCH ×4 (08:15→21:29)
--- NOTE | 2018-07-29 08:30 | CARD ---
APPROVED REPORT Date of service: 07/28/2018 EKG Measurement Heart [id number] 130P80 [id number] <Conclusion> Sinus rhythm with premature atrial complexes Right bundle branch block Abnormal ECG
--- NOTE | 2018-07-29 08:33 | RAD ---
Date of service: 07/28/2018 HISTORY: altered mental status COMPARISON: 11/20/2016 FINDINGS: LUNGS: No active pulmonary disease. PLEURA: No significant pleural effusion identified, no pneumothorax apparent. CARDIOVASCULAR: No aortic atherosclerotic calcification present. Normal cardiac size. No pulmonary vascular congestion. OSSEOUS STRUCTURES: No significant abnormalities. VISUALIZED UPPER ABDOMEN: Normal. OTHER FINDINGS: Moderate aortic tortuosity IMPRESSION: No active disease.
[2018-07-29] MEDS: Cholecalciferol 1,000 INTLU TAB PO SCH (09:37)
--- NOTE | 2018-07-29 12:27 | CARD ---
APPROVED REPORT Date of service: 07/29/2018 EKG Measurement Heart [id number] [id number] <Conclusion> Sinus rhythm with premature atrial complexes Right bundle branch block Abnormal ECG
--- NOTE | 2018-07-29 14:32 | CP.PCM.PN ---
<David Sun - Last Filed: 07/29/18 15:34> Subjective - Date & Time of Evaluation Date of Evaluation: 07/29/18 Time of Evaluation: 07:00 - Subjective Subjective: David Sun, PGY1 Medicine Progress Note for Dr. Quevedo Patient was seen and examined at bedside this morning. Initially in the morning, patient was non-verbal. She was awake and not alert. However, later in the morning she was verbal. Patient was AAOx1 to place only. However, she was suspicious of the medical team and thought that we were out to get her. Patient was not answering questions appropriately, as a result, a proper ROS was not conducted. Objective - Vital Signs/Intake and Output Vital Signs (last 24 hours): Temp Pulse Resp BP Pulse Ox 97.4 F L 81 19 118/60 98 07/29/18 06:00 07/29/18 10:00 07/29/18 06:00 07/29/18 06:00 07/29/18 06:00 Intake and Output: 07/29/18 07/29/18 06:59 18:59 Intake Total 720 Output Total 0 Balance 720 - Medications Medications: Current Medications Amlodipine Besylate (Norvasc) 5 mg PO DAILY [facility] Last Admin: 07/29/18 09:37 Dose: Not Given Cholecalciferol (Vitamin D) 2,000 intlu PO DAILY [facility] Last Admin: 07/29/18 09:37 Dose: Not Given Dextrose (Dextrose 50% Inj) 0 ml IV STAT PRN; 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 Reason: Hypoglycemia Protocol Last Admin: 07/29/18 05:55 Dose: 25 ml Heparin Sodium/Sodium Chloride (Heparin 10074 Units/250ml 1/2 Normal Saline) 25,000 units in 250 mls @ 7.893 mls/hr IV .Q24H [facility]; Protocol Last Titration: 07/29/18 05:08 Dose: 9 units/kg/hr, 5.919 mls/hr Dextrose (Dextrose 5% In Water 1000 Ml) 1,000 mls @ 0 mls/hr IV .Q0M PRN; 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 Reason: Hypoglycemia Protocol Last Admin: 07/29/18 05:55 Dose: 100 mls/hr Dextrose/Sodium Chloride (Dextrose 5%/0.45% Ns 1000 Ml) 1,000 mls @ 100 mls/hr IV .Q10H [facility] Last Admin: 07/29/18 06:44 Dose: 100 mls/hr Iron Sucrose 100 mg/ Sodium (Chloride) 105 mls @ 210 mls/hr IVPB ONCE ONE Stop: 07/30/18 10:22 Potassium Chloride (Potassium Chloride 10 Meq/100 Ml) 10 meq in 100 mls @ 50 mls/hr IVPB Q2H [facility] Stop: 07/29/18 16:14 Last Admin: 07/29/18 13:34 Dose: 50 mls/hr Insulin Human Regular (Humulin R Med) 0 units SC ACHS [facility]; Protocol Last Admin: 07/29/18 12:00 Dose: Not Given Metoprolol Tartrate (Lopressor) 50 mg PO DAILY [facility] Last Admin: 07/29/18 09:37 Dose: Not Given Pantoprazole Sodium (Protonix Ec Tab) 40 mg PO 0600 [facility] Last Admin: 07/29/18 05:25 Dose: Not Given - Labs Labs: 07/29/18 06:00 07/29/18 06:00 PT 11.4 SECONDS (9.4-12.5) 07/28/18 17:46 INR 1.00 07/28/18 17:46 APTT 54.6 Seconds (25.1-36.5) H 07/29/18 09:00 - Constitutional Appears: Confused - Head Exam Head Exam: ATRAUMATIC, NORMAL INSPECTION, NORMOCEPHALIC - Eye Exam Eye Exam: EOMI, Normal appearance, PERRL Pupil Exam: NORMAL ACCOMODATION, PERRL - Neck Exam Neck Exam: Normal Inspection. absent: Lymphadenopathy - Respiratory Exam Respiratory Exam: Clear to Ausculation Bilateral. absent: Rales, Rhonchi, Wheezes, Respiratory Distress - Cardiovascular Exam Cardiovascular Exam: REGULAR RHYTHM, +S1, +S2 - GI/Abdominal Exam GI & Abdominal Exam: Soft, Normal Bowel Sounds. absent: Tenderness - Extremities Exam Extremities Exam: Full ROM, Normal Capillary Refill, Normal Inspection. absent: Joint Swelling, Pedal Edema Additional comments: Patient is moving all four extremities. - Neurological Exam Neurological Exam: Alert, Awake. absent: Oriented x3 (AAOx1) Neuro motor strength exam: Left Upper Extremity: 5, Right Upper Extremity: 5, Left Lower Extremity: 5, Right Lower Extremity: 5 - Skin Skin Exam: Dry, Intact, Normal Color, Warm Assessment and Plan - Assessment and Plan (Free Text) Assessment: Patient is a 77 y/o F with PMH of HTN, DM2, OA, and COPD who presents to ED with family for AMS, delusions, and hallucinations. Patient is admitted to the floor. Plan: Altered Mental Status possibly due to delirium vs underlying psychiatric disorder - Neurology consulted. Recommendations appreciated. - Psychiatry consulted. Follow up recommendations. - Initially presented with hypoglycemia with bg 38, improved with ampD50 and sugars have been normal since. However, mental status is not at baseline. - NPO - Negative ammonia level - UA +protein +mod bili +small LE with 2-5 wbc, increased risk in elderly but less suspicious of UTI - swallow eval - f/u blood cx and urine cx Troponin elevation possibly due to demand ischemia - c/w Heparin gtt - f/u cardio recs - 0.18 on admission, repeat trops were .14 - EKG with evidence of old RBBB; repeat EKG is unchanged Hx of HTN - restarted on home med, norvasc 5mg daily - Lopressor home medication - Cozaar home medication Hx of DM II - avoid hypoglycemia - ISS DVT ppx: Hep gtt GI ppx: PTX Dispo: Patient will be monitored on telemetry. Case was discussed and reviewed with Attending Physician, Dr. Quevedo. <Milagros Quevedo - Last Filed: 07/29/18 16:36> Objective - Vital Signs/Intake and Output Vital Signs (last 24 hours): Temp Pulse Resp BP Pulse Ox 98.4 F 81 19 122/52 L 98 07/29/18 12:00 07/29/18 14:00 07/29/18 12:00 07/29/18 12:00 07/29/18 06:00 Intake and Output: 07/29/18 07/29/18 06:59 18:59 Intake Total 720 Output Total 0 Balance 720 - Medications Medications: Current Medications Amlodipine Besylate (Norvasc) 5 mg PO DAILY [facility] Last Admin: 07/29/18 09:37 Dose: Not Given Cholecalciferol (Vitamin D) 2,000 intlu PO DAILY [facility] Last Admin: 07/29/18 09:37 Dose: Not Given Dextrose (Dextrose 50% Inj) 0 ml IV STAT PRN; 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 Reason: Hypoglycemia Protocol Last Admin: 07/29/18 05:55 Dose: 25 ml Heparin Sodium/Sodium Chloride (Heparin 35945 Units/250ml 1/2 Normal Saline) 25,000 units in 250 mls @ 7.893 mls/hr IV .Q24H [facility]; Protocol Last Titration: 07/29/18 05:08 Dose: 9 units/kg/hr, 5.919 mls/hr Dextrose (Dextrose 5% In Water 1000 Ml) 1,000 mls @ 0 mls/hr IV .Q0M PRN; 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 Reason: Hypoglycemia Protocol Last Admin: 07/29/18 05:55 Dose: 100 mls/hr Dextrose/Sodium Chloride (Dextrose 5%/0.45% Ns 1000 Ml) 1,000 mls @ 100 mls/hr IV .Q10H [facility] Last Admin: 07/29/18 06:44 Dose: 100 mls/hr Iron Sucrose 100 mg/ Sodium (Chloride) 105 mls @ 210 mls/hr IVPB ONCE ONE Stop: 07/30/18 10:22 Insulin Human Regular (Humulin R Med) 0 units SC ACHS [facility]; Protocol Last Admin: 07/29/18 12:00 Dose: Not Given Metoprolol Tartrate (Lopressor) 50 mg PO DAILY [facility] Last Admin: 07/29/18 09:37 Dose: Not Given Pantoprazole Sodium (Protonix Ec Tab) 40 mg PO 0600 [facility] Last Admin: 07/29/18 05:25 Dose: Not Given - Labs Labs: 07/29/18 06:00 07/29/18 06:00 PT 11.4 SECONDS (9.4-12.5) 07/28/18 17:46 INR 1.00 07/28/18 17:46 APTT 48.9 Seconds (25.1-36.5) H 07/29/18 14:20 Attending/Attestation - Attestation I have personally seen and examined this patient.: Yes I have fully participated in the care of the patient.: Yes I have reviewed all pertinent clinical information, including history, physical exam and plan: Yes Notes (Text): 07/29/18 16:29 77 year old female with past medical history of diabetes, hypertension and COPD who presented with altered mental status with delusions and hallucinations as per family Psychiatry and neurology evaluations were requested. CT head showed chronic microvascular ischemic disease and moderate volume loss. MRI brain and EEG are ordered. Patient was also found to have elevated troponins; 0.18-0.14-0.14. She is on aspirin, metoprolol and heparin drip. Cardiology evaluation was requested. Patient was also initially hypoglycemic which improved with D50. Metformin is on hold. Hemoglobin A1c is 5.3. Will continue to monitor. Will replete and repeat lytes. Milagros Quevedo MD Hospitalist.
[2018-07-29] MEDS: Heparin25000 units/250ml 1/2NS 25,000 UNITS/250 ML BAG IV SCH ×2 (18:17→23:49)
--- NOTE | 2018-07-29 20:01 | CON ---
DATE: 07/29/2018 CARDIOLOGY CONSULTATION HISTORY OF PRESENT ILLNESS: The patient is a 77-year-old woman who presents with altered mental status with a change of behavior and confusion. She no longer recognizes certain people in the family. It is difficult to get chest pain or shortness of breath symptoms from her. PAST MEDICAL HISTORY: Includes diabetes mellitus, hypertension. She has documented coronary artery disease in the past with a distal LAD stenosis, which was treated medically. Her last stress test showed essentially no change from previous. SOCIAL HISTORY: Not available. REVIEW OF SYSTEMS: Not available. PHYSICAL EXAMINATION: VITAL SIGNS: Blood pressure is 118/60 and the heart rates in the 80s. NECK: Negative JVD. LUNGS: Without rales. HEART: S1 and S2. EXTREMITIES: Without edema. LABORATORY DATA: EKG shows normal sinus rhythm with a right bundle-branch block, nonspecific ST-T changes. Hemoglobin is 9.9. Chemistries, troponins are 0.14 x2. BUN and creatinine are unremarkable. Potassium is 3.1, magnesium 2.1 with a glucose of 123. IMPRESSION: 1. Altered mental status. 2. Non-ST segment elevation myocardial infarction. 3. Documented coronary artery disease. 4. Diabetes mellitus. 5. Hypercholesterolemia. PLAN: Given these findings, the patient's mental status does not allow for cardiac intervention at this time. Her CT scan of the head reveals no intracranial bleed. We will treat the patient's acute coronary syndrome medically. I agree with starting her on IV heparin. We will add baby aspirin daily. The patient is already on beta-blockers. Tello Talbert MD
[2018-07-30] MEDS: Dextrose 5%/0.45% NS 1,000 ML IV SCH ×3 (03:49→21:00)
[2018-07-30] MEDS: Pantoprazole 40 mg EC Tab PO SCH (05:35)
[2018-07-30 06:38] LABS: ALB/GLOB RATIO 0.7 (1.1-1.8); ALBUMIN 2.1 g/dL (3.0-4.8); ALT/SGPT 38 U/L (7-56); AST/SGOT 33 U/L (14-36); BLOOD UREA NITROGEN 18 mg/dL (7-21); GFR NON-AFRICAN AMERICAN > 60
[2018-07-30 07:25] LABS: BASO # 0.01 K/mm3 (0.0-2.0); BASO % 0.3 % (0.0-3.0); EOS % 0.9 % (1.5-5.0); GRAN # 2.52 (1.4-6.5); HEMOGLOBIN 10.9 g/dL (12.0-16.0); LYMPH # 0.6 (1.2-3.4); LYMPH % 17.7 % (22.0-35.0); MEAN CELL VOLUME 86.4 fl (80.0-105.0); MEAN CORPUSCULAR HEMOGLOBIN 28.5 pg (25.0-35.0); MEAN PLATELET VOLUME 8.2 fl (7.0-11.0); MONO # 0.3 (0.1-0.6); MONO % 9.1 % (1.0-6.0); RBC 3.82 10^6/uL (3.5-6.1); RED CELL DISTRIBUTION WIDTH 19.3 % (11.5-14.5); WHITE BLOOD COUNT 3.5 10^3/uL (4.5-11.0)
[2018-07-30] MEDS: Insulin Reg-MEDIUM-Coverage SC SCH ×4 (07:59→22:00)
[2018-07-30] MEDS ORDERED: Potassium Chloride 20 mEq ER Tab PO ONE (08:09)
--- NOTE | 2018-07-30 09:10 | PN ---
DATE: 07/30/2018 CARDIOLOGY FOLLOWUP NOTE SUBJECTIVE: The patient is without chest pain, but she remains markedly confused. Hemoglobin is 10.9. Chemistries, BUN and creatinine, unremarkable. Potassium is 3.5. PHYSICAL EXAMINATION: VITAL SIGNS: Blood pressure 132/72, the heart rate is in the 60s. NECK: Negative JVD. LUNGS: Without rales. HEART: S1, S2. EXTREMITIES: Without edema. LABORATORY DATA: Potassium is 3.5, hemoglobin is 10.9. IMPRESSION: 1. Marked confusion with altered mental status. 2. Non-ST elevation myocardial infarction. 3. Hypokalemia. 4. Anemia. 5. High probability for coronary artery disease. PLAN: Given these findings, given the patient's mental status, we will continue treatment of her non-ST elevation myocardial infarction medically. We will continue the aspirin and anticoagulation. Her hemodynamics are stable. We will replace the potassium today. Tello Talbert MD
[2018-07-30] MEDS: Cholecalciferol 1,000 INTLU TAB PO SCH (10:20)
[2018-07-30] MEDS ORDERED: Gadodiamide 287 MG/ML VIAL (15ML) IV ONE (12:43)
--- NOTE | 2018-07-30 13:24 | CP.PCM.PN ---
<David Sun - Last Filed: 07/30/18 15:17> Subjective - Date & Time of Evaluation Date of Evaluation: 07/30/18 Time of Evaluation: 07:00 - Subjective Subjective: David Sun, PGY1 Medicine Progress Note for Dr. Quevedo Patient was seen and examined at bedside this morning. Afebrile, vital signs stable, and no overnight events. Daughter was present at bedside this morning. Daughter says that patient has not been at her baseline mental status for the past 3 weeks. She is not aware of any underlying dementia ever being diagnosed in her mom. She is the POA for the patient. Patient was alert and oriented to person and time, AAOx2 today. No hallucinations noted today. Patient did not provide proper ROS . Objective - Vital Signs/Intake and Output Vital Signs (last 24 hours): Temp Pulse Resp BP Pulse Ox 97.8 F 100 H 19 140/72 97 07/30/18 06:00 07/30/18 10:21 07/30/18 06:00 07/30/18 10:21 07/30/18 06:00 Intake and Output: 07/30/18 07/30/18 06:59 18:59 Intake Total 1285 Output Total 200 Balance 1085 - Medications Medications: Current Medications Amlodipine Besylate (Norvasc) 5 mg PO DAILY [facility] Last Admin: 07/30/18 10:20 Dose: 5 mg Aspirin (Ecotrin) 81 mg PO 0800 [facility] Last Admin: 07/30/18 08:01 Dose: 81 mg Atorvastatin Calcium (Lipitor) 10 mg PO DIN [facility] Cholecalciferol (Vitamin D) 2,000 intlu PO DAILY [facility] Last Admin: 07/30/18 10:20 Dose: 2,000 intlu Dextrose (Dextrose 50% Inj) 0 ml IV STAT PRN; 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 Reason: Hypoglycemia Protocol Last Admin: 07/29/18 05:55 Dose: 25 ml Heparin Sodium/Sodium Chloride (Heparin 70204 Units/250ml 1/2 Normal Saline) 25,000 units in 250 mls @ 7.893 mls/hr IV .Q24H [facility]; Protocol Last Titration: 07/30/18 03:46 Dose: 8 units/kg/hr, 5.262 mls/hr Dextrose (Dextrose 5% In Water 1000 Ml) 1,000 mls @ 0 mls/hr IV .Q0M PRN; 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 Reason: Hypoglycemia Protocol Last Admin: 07/29/18 05:55 Dose: 100 mls/hr Dextrose/Sodium Chloride (Dextrose 5%/0.45% Ns 1000 Ml) 1,000 mls @ 100 mls/hr IV .Q10H [facility] Last Admin: 07/30/18 07:53 Dose: 100 mls/hr Insulin Human Regular (Humulin R Med) 0 units SC ACHS [facility]; Protocol Last Admin: 07/30/18 11:45 Dose: Not Given Metoprolol Tartrate (Lopressor) 25 mg PO BID [facility] Pantoprazole Sodium (Protonix Ec Tab) 40 mg PO 0600 [facility] Last Admin: 07/30/18 05:35 Dose: 40 mg Quetiapine Fumarate (Seroquel) 12.5 mg PO HS PRN; 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 Reason: psychosis/agitation - Labs Labs: 07/30/18 06:00 07/30/18 06:00 PT 11.4 SECONDS (9.4-12.5) 07/28/18 17:46 INR 1.00 07/28/18 17:46 APTT 66.1 Seconds (25.1-36.5) H 07/30/18 10:30 - Constitutional Appears: No Acute Distress - Head Exam Head Exam: ATRAUMATIC, NORMAL INSPECTION, NORMOCEPHALIC - Eye Exam Eye Exam: EOMI, Normal appearance, PERRL Pupil Exam: NORMAL ACCOMODATION, PERRL - ENT Exam ENT Exam: Mucous Membranes Moist, Normal Exam - Neck Exam Neck Exam: Full ROM, Normal Inspection. absent: Lymphadenopathy - Respiratory Exam Respiratory Exam: Clear to Ausculation Bilateral, NORMAL BREATHING PATTERN. absent: Rales, Rhonchi, Wheezes - Cardiovascular Exam Cardiovascular Exam: RRR, +S1, +S2 - GI/Abdominal Exam GI & Abdominal Exam: Soft, Normal Bowel Sounds. absent: Tenderness - Extremities Exam Extremities Exam: Full ROM, Normal Capillary Refill, Normal Inspection. absent: Joint Swelling, Pedal Edema - Neurological Exam Neurological Exam: Alert, Awake. absent: Oriented x3 (AAOx2) Neuro motor strength exam: Left Upper Extremity: 5, Right Upper Extremity: 5, Left Lower Extremity: 5, Right Lower Extremity: 5 - Psychiatric Exam Psychiatric exam: Normal Mood Additional comments: Patient has tangential thought. - Skin Skin Exam: Dry, Intact, Normal Color, Warm Assessment and Plan - Assessment and Plan (Free Text) Assessment: Patient is a 77 y/o F with PMH of HTN, DM2, OA, and COPD who presents to ED with family for AMS, delusions, and hallucinations. Patient is admitted to the floor for Altered Mental Status. Plan: Altered Mental Status possibly due to stroke vs underlying psychiatric disorder - f/u Brain MRI results - Psychiatry consulted. Follow up recommendations. - Neurology recs appreciated. - Initially presented with hypoglycemia with bg 38, improved with ampD50 and sugars have been normal since. - NPO - UA negative for UTI - swallow eval - f/u blood cx and urine cx Troponin elevation possibly due to demand ischemia - c/w Heparin gtt - started on low dose statin - cardio recs appreciated. Recommend medical management. Started on aspirin 81mg. - 0.18 on admission, repeat trops were .14 - EKG with evidence of old RBBB; repeat EKG is unchanged Hx of HTN - Lopressor 25mg BID - restarted on home med, norvasc 5mg daily - Cozaar home medication Hx of DM II - avoid hypoglycemia - ISS DVT ppx: Hep gtt GI ppx: PTX Dispo: Patient will be monitored on telemetry. Plan for Brain MRI today. Case was discussed and reviewed with Attending Physician, Dr. Quevedo. <Milagros Quevedo - Last Filed: 07/30/18 16:33> Objective - Vital Signs/Intake and Output Vital Signs (last 24 hours): Temp Pulse Resp BP Pulse Ox 97.8 F 100 H 19 140/72 97 07/30/18 06:00 07/30/18 10:21 07/30/18 06:00 07/30/18 10:21 07/30/18 06:00 Intake and Output: 07/30/18 07/30/18 06:59 18:59 Intake Total 1285 Output Total 200 Balance 1085 - Medications Medications: Current Medications Amlodipine Besylate (Norvasc) 5 mg PO DAILY [facility] Last Admin: 07/30/18 10:20 Dose: 5 mg Aspirin (Ecotrin) 81 mg PO 0800 [facility] Last Admin: 07/30/18 08:01 Dose: 81 mg Atorvastatin Calcium (Lipitor) 40 mg PO DIN [facility] Cholecalciferol (Vitamin D) 2,000 intlu PO DAILY [facility] Last Admin: 07/30/18 10:20 Dose: 2,000 intlu Dextrose (Dextrose 50% Inj) 0 ml IV STAT PRN; 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 Reason: Hypoglycemia Protocol Last Admin: 07/29/18 05:55 Dose: 25 ml Heparin Sodium/Sodium Chloride (Heparin 91196 Units/250ml 1/2 Normal Saline) 25,000 units in 250 mls @ 7.893 mls/hr IV .Q24H [facility]; Protocol Last Titration: 07/30/18 03:46 Dose: 8 units/kg/hr, 5.262 mls/hr Dextrose (Dextrose 5% In Water 1000 Ml) 1,000 mls @ 0 mls/hr IV .Q0M PRN; 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 Reason: Hypoglycemia Protocol Last Admin: 07/29/18 05:55 Dose: 100 mls/hr Dextrose/Sodium Chloride (Dextrose 5%/0.45% Ns 1000 Ml) 1,000 mls @ 100 mls/hr IV .Q10H [facility] Last Admin: 07/30/18 07:53 Dose: 100 mls/hr Insulin Human Regular (Humulin R Med) 0 units SC ACHS [facility]; Protocol Last Admin: 07/30/18 11:45 Dose: Not Given Metoprolol Tartrate (Lopressor) 25 mg PO BID [facility] Pantoprazole Sodium (Protonix Ec Tab) 40 mg PO 0600 [facility] Last Admin: 07/30/18 05:35 Dose: 40 mg Quetiapine Fumarate (Seroquel) 12.5 mg PO HS PRN; 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 Reason: psychosis/agitation - Labs Labs: 07/30/18 06:00 07/30/18 06:00 PT 11.4 SECONDS (9.4-12.5) 07/28/18 17:46 INR 1.00 07/28/18 17:46 APTT 66.1 Seconds (25.1-36.5) H 07/30/18 10:30 Attending/Attestation - Attestation I have personally seen and examined this patient.: Yes I have fully participated in the care of the patient.: Yes I have reviewed all pertinent clinical information, including history, physical exam and plan: Yes Notes (Text): 07/30/18 16:29 77 year old female with past medical history of diabetes, hypertension and COPD who presented with altered mental status with delusions and hallucinations as per family. CT head showed chronic microvascular ischemic disease and moderate volume loss. CTA head/neck is negative. EEG is being done this morning. MRI brain was obtained which shows multiple small cortical / subcortical infarcts in both hemispheres, right greater than left. Patient is on aspirin and statin. PT evaluation is requested. Neurology is following. Patient was seen by psychiatrist this morning as well; will follow up with recommendations. Patient was also found to have possible NSTEMI with elevated troponins; 0.18-0.14-0.14. She is on aspirin, metoprolol, statin and heparin drip. Cardiology is following. Patient was also initially hypoglycemic which improved with D50. Metformin is on hold. Hemoglobin A1c is 5.3. Will continue to monitor. Will replete and repeat lytes. Daughter is at bedside and questions were answered. Milagros Quevedo MD Hospitalist.
--- NOTE | 2018-07-30 13:39 | MRI ---
Date of service: 07/30/2018 PROCEDURE: MRI BRAIN WITH AND WITHOUT CONTRAST HISTORY: eval, ams COMPARISON: None available. TECHNIQUE: Multiplanar, multisequence MR images of the brain were obtained with and without intravenous contrast enhancement. 15 cc of Omniscan FINDINGS: HEMORRHAGE: None DWI: Multiple small acute infarcts are seen in both hemispheres right greater than left. Multiple cortical and subcortical infarcts are seen in the right posterior frontal and parietal lobe as well as the right occipital lobe. There are a few scattered acute infarcts seen in the left occipital and posterior frontal lobe. These infarcts could be due to a hypotensive watershed infarct type of event. BRAIN PARENCHYMA: Mild chronic microvascular changes are seen as well as mild atrophy. ENHANCEMENT: No abnormal intracranial enhancement. VENTRICLES: Unremarkable. No hydrocephalus. CRANIUM: Unremarkable. ORBITS: Grossly unremarkable. PARANASAL SINUSES/MASTOIDS: Clear VASCULAR SYSTEM: Skull base flow voids intact. OTHER FINDINGS: None . IMPRESSION: Multiple small cortical and subcortical infarcts in both hemispheres right greater than left. These infarcts could be due to a hypotensive watershed infarct type of a vent. Clinical correlation is suggested.
--- NOTE | 2018-07-30 14:08 | CP.PCM.PN ---
Subjective - Date & Time of Evaluation Date of Evaluation: 07/31/18 Time of Evaluation: 14:07 - Subjective Subjective: MIss callahan is awake, alert and able to tell me her name, and where she is. There is no paranoia as there was yesterday. MRI Brain shows multiple infarcts bilaterally several in the right physicist cryogenics region and several in the left MCa region, higher cortical areas. There is no hemorrhagic component. ROS: negative for 12 points. On exam: AAOX3. PERRL. CN 2-12 normal. Motor: normal. Strength: normal. Sensory : intact Gait: not tested. VFF: no deficits noted. Objective - Vital Signs/Intake and Output Vital Signs (last 24 hours): Temp Pulse Resp BP Pulse Ox 97.8 F 100 H 19 140/72 97 07/30/18 06:00 07/30/18 10:21 07/30/18 06:00 07/30/18 10:21 07/30/18 06:00 Intake and Output: 07/30/18 07/30/18 06:59 18:59 Intake Total 1285 Output Total 200 Balance 1085 - Medications Medications: Current Medications Amlodipine Besylate (Norvasc) 5 mg PO DAILY [facility] Last Admin: 07/30/18 10:20 Dose: 5 mg Aspirin (Ecotrin) 81 mg PO 0800 [facility] Last Admin: 07/30/18 08:01 Dose: 81 mg Aspirin (Aspirin) 325 mg PO DAILY [facility] Atorvastatin Calcium (Lipitor) 10 mg PO DIN [facility] Cholecalciferol (Vitamin D) 2,000 intlu PO DAILY [facility] Last Admin: 07/30/18 10:20 Dose: 2,000 intlu Dextrose (Dextrose 50% Inj) 0 ml IV STAT PRN; 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 Reason: Hypoglycemia Protocol Last Admin: 07/29/18 05:55 Dose: 25 ml Heparin Sodium/Sodium Chloride (Heparin 67802 Units/250ml 1/2 Normal Saline) 25,000 units in 250 mls @ 7.893 mls/hr IV .Q24H [facility]; Protocol Last Titration: 07/30/18 03:46 Dose: 8 units/kg/hr, 5.262 mls/hr Dextrose (Dextrose 5% In Water 1000 Ml) 1,000 mls @ 0 mls/hr IV .Q0M PRN; 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 Reason: Hypoglycemia Protocol Last Admin: 07/29/18 05:55 Dose: 100 mls/hr Dextrose/Sodium Chloride (Dextrose 5%/0.45% Ns 1000 Ml) 1,000 mls @ 100 mls/hr IV .Q10H [facility] Last Admin: 07/30/18 07:53 Dose: 100 mls/hr Insulin Human Regular (Humulin R Med) 0 units SC ACHS [facility]; Protocol Last Admin: 07/30/18 11:45 Dose: Not Given Metoprolol Tartrate (Lopressor) 25 mg PO BID [facility] Pantoprazole Sodium (Protonix Ec Tab) 40 mg PO 0600 [facility] Last Admin: 07/30/18 05:35 Dose: 40 mg Quetiapine Fumarate (Seroquel) 12.5 mg PO HS PRN; 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 Reason: psychosis/agitation - Labs Labs: 07/30/18 06:00 07/30/18 06:00 PT 11.4 SECONDS (9.4-12.5) 07/28/18 17:46 INR 1.00 07/28/18 17:46 APTT 66.1 Seconds (25.1-36.5) H 07/30/18 10:30 Assessment and Plan - Assessment and Plan (Free Text) Assessment: A/p: 77 yr old woman with 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 We will need stroke workup. Plan: 1. ECHO 2. PErmissive htn 3. CTA Head and neck 4. aspirin 325 mg po daily 5 Stop all bp meds 6. PTST OT 7. Telemetry Thank you Dr. fry
[2018-07-30] MEDS ORDERED: Iohexol 350 MG/100 ML VIAL ONE (14:14)
--- NOTE | 2018-07-30 16:26 | CT ---
Date of service: 07/30/2018 PROCEDURE: CT Angiography of the neck with contrast HISTORY: stroke COMPARISON: None. TECHNIQUE: Contiguous axial images of the neck were obtained from the level of the skull-base to the superior mediastinum in the arteriographic phase of enhancement. Coronal and sagittal reformats or also generated. IV contrast dose: 100 cc of Omni 350 Radiation dose: Total exam DLP = 444.01 mGy-cm. This CT exam was performed using one or more of the following dose reduction techniques: Automated exposure control, adjustment of the mA and/or kV according to patient size, and/or use of iterative reconstruction technique. FINDINGS: RIGHT CAROTID ARTERIES: Common Carotid Artery: Normal. Carotid Bifurcation: Normal. Internal Carotid Artery:Normal. External Carotid Artery (proximal branches): Normal. LEFT CAROTID ARTERIES: Common Carotid Artery: Normal. Carotid Bifurcation: Normal. Internal Carotid Artery:Normal. External Carotid Artery (proximal branches): Normal. VERTEBRAL ARTERIES: Right Vertebral Artery: Normal. Left Vertebral Artery: Normal. OTHER FINDINGS: Minimal aortic calcification IMPRESSION: No evidence of stenosis or occlusion CT Angiography of the Brain. HISTORY: stroke COMPARISON: None available. TECHNIQUE: CT angiography of the intracranial arteries was performed. Coronal and sagittal maximum intensity projection reformated images were generated. Radiation dose: Total exam DLP = 444.01 mGy-cm. This CT exam was performed using one or more of the following dose reduction techniques: Automated exposure control, adjustment of the mA and/or kV according to patient size, and/or use of iterative reconstruction technique. FINDINGS: INTERNAL CEREBRAL ARTERIES: Unremarkable. The skull base, petrous, cavernous and supraclinoid segments are bilaterally widely patent. Calcified intra cavernous carotids. ANTERIOR CEREBRAL ARTERIES: Unremarkable. A1 and A2 segments are widely patent. Smaller distal branches unremarkable, as visualized. MIDDLE CEREBRAL ARTERIES: Unremarkable. M1 and M2 segments are widely patent. Perisylvian branches grossly symmetric. POSTERIOR CIRCULATION: Basilar Artery: Unremarkable. Distal Vertebral Arteries: Unremarkable. Posterior Cerebral Arteries: Unremarkable. Posterior Inferior Cerebellar Arteries: Unremarkable. ANEURYSM/ VASCULAR MALFORMATIONS: None. OTHER FINDINGS: None. IMPRESSION: Unremarkable CT Angiography of the Brain.
--- NOTE | 2018-07-30 21:52 | CON ---
DATE: 07/30/2018 HISTORY OF PRESENT ILLNESS: The patient is 77-year-old with not known previous psychiatric history. The patient has multiple medical issues including hypertension, diabetes, arthritis. The patient was admitted to the medical site for evaluation of acute change in mental status and psychosis. The patient believes that her doctor neurologist is not her truly doctor. Also, the patient believes that her daughter is not truly daughter even though that she presents like one. The patient also presented to be confused and difficulty to express herself. Psych consult was called for evaluation of delusions and medication management. The patient was seen and examined today. The patient presented to be somewhat confused but she knows that she is in the hospital, but was not aware what is the date today. The patient was not aware of the circumstances of her admission to the medical floor. The patient had difficulties to express herself, find the right wording. The patient said that her daughter is not her true daughter and she was substituted by someone who looks like her. PHYSICAL EXAMINATION: GENERAL: The patient is not on any acute distress but appears to be confused and difficulty finding words. VITAL SIGNS: Reviewed. Temperature 97.8, pulse is 100, blood pressure 140/72, respiration 26, and oxygen saturation is 97. MEDICATIONS: Reviewed. Norvasc, aspirin, Lipitor, vitamin D, dextrose, heparin, Humulin, Lopressor and Protonix. LABORATORY DATA: Reviewed. Most recent labs from today. WBC 3.5, hemoglobin and hematocrit 10.9 and 33.0. Coagulation reviewed. Chemistries reviewed. Urinalysis showed leukocyte esterase. Bilirubin moderate. Toxicology was negative for any substance weed, hydroxybutyrate 5.48 which is high. This commercial lines underwriter had collateral information from the patient's daughter, [place], phone number [phone] and [place]'s Davon's phone number [phone]. The patient gave permission to talk to her. As per daughter, she is her legal power of attorney general, but the patient daughter was not able to present any document to support that statement. The patient's daughter was advised to contact either attorney general or find that document and present it to the hospital for the future references. Her daughter verbalized understanding. As per collateral information, the patient was doing fine up until 3 weeks ago. The patient was moved to [facility] and since that time, the patient was feeling that she is evicted and confused. The patient does not have history of dementia, does not have history of mental illness. Does not have seen psychiatrist in the past and denied suicidal attempts. This commercial lines underwriter educated the patient as well as her daughter about Seroquel 12.5 mg at the nighttime as needed for psychosis. The patient and her daughter agreed with that. MENTAL STATUS EXAMINATION: The patient presented to be confused but knows that she is in the hospital, difficulty to express herself and find the right words. Mood described as okay and was flat. Thought process circumstantial, tangential. Thought content, the patient has psychosis, delusions, hallucinations. Insight and judgment seems to be very limited. Impulses are well controlled. IMPRESSION: Most likely the patient is in delirium stage, neurologist is involved. The patient does not have history of dementia. PLAN: Seroquel at the nighttime. Daughter was advised to bring legal documents supporting power of attorney general. The patient had EEG, neurologist is involved. We will follow up and advise accordingly. Thank you so much for letting me participate in care of your patient. Should you have any questions give me a call back. Maria Eugenia Jiang MD
[2018-07-30] MEDS: Heparin25000 units/250ml 1/2NS 25,000 UNITS/250 ML BAG IV SCH (22:24)
[2018-07-31] MEDS: Pantoprazole 40 mg EC Tab PO SCH (05:46)
[2018-07-31 07:20] LABS: BASO # 0.01 K/mm3 (0.0-2.0); BASO % 0.3 % (0.0-3.0); EOS # 0.1 (0.0-0.7); EOS % 1.9 % (1.5-5.0); GRAN # 2.28 (1.4-6.5); GRAN % 70.3 % (50.0-68.0); HEMOGLOBIN 10.7 g/dL (12.0-16.0); LYMPH # 0.6 (1.2-3.4); LYMPH % 19.8 % (22.0-35.0); MEAN CELL VOLUME 86.1 fl (80.0-105.0); MEAN CORPUSCULAR HEMOGLOBIN 28.6 pg (25.0-35.0); MEAN CORPUSCULAR HGB CONC 33.2 g/dl (31.0-37.0); MEAN PLATELET VOLUME 8.2 fl (7.0-11.0); MONO # 0.3 (0.1-0.6); MONO % 7.7 % (1.0-6.0); RBC 3.74 10^6/uL (3.5-6.1); RED CELL DISTRIBUTION WIDTH 19.2 % (11.5-14.5); WHITE BLOOD COUNT 3.2 10^3/uL (4.5-11.0)
--- NOTE | 2018-07-31 07:39 | CP.PCM.PN ---
Subjective - Date & Time of Evaluation Date of Evaluation: 07/31/18 Time of Evaluation: 09:30 - Subjective Subjective: Walter Tijerina- Internal Medicine Resident- Consult Note on Behalf of Neurology Team Subjective: Patient seen and examined at bedside. No acute events overnight. Patient is more awake and alert. Offers no new complaints at this time. Will not answer answers appropriately. Denies weakness, dizziness, numbness, and focal deficits. 12 point ROS negative except as indicated in the HPI Physical Examination: - Constitutional Appears: Well, Non-toxic, No Acute Distress - Head Exam Head Exam: ATRAUMATIC, NORMAL INSPECTION, NORMOCEPHALIC - Eye Exam Eye Exam: EOMI, Normal appearance - ENT Exam ENT Exam: Mucous Membranes Moist, Normal Exam, No tongue laceration - Neck Exam Neck exam: Positive for: Full Rom, Normal Inspection - Respiratory Exam Respiratory Exam: Clear to Auscultation Bilateral, NORMAL BREATHING PATTERN. absent: Accessory Muscle Use, Rales, Rhonchi, Wheezes, Respiratory Distress - Cardiovascular Exam Cardiovascular Exam: REGULAR RHYTHM, +S1, +S2 - GI/Abdominal Exam GI & Abdominal Exam: Normal Bowel Sounds, Soft. absent: Distended, Firm, Guarding, Rebound, Rigid, Tenderness - Extremities Exam Extremities exam: Positive for: full ROM, normal capillary refill, normal inspection, pedal pulses present - Neurological Exam Neurological exam: awake, alert, orientated x [address], responds to verbal stimuli, answers questions inappropriately, follows commands, moves extremities past midline, will not cooperative with full neuro exam - Skin Skin Exam: Intact, Normal Color, Warm Assessment and Plan: Patient is a 77 year old female with a past medical history of HTN, DM2, and OA who was admitted for evaluation and treatment of altered mental status and hallucinations/delusions. Neurology was consulted for management of altered mental status. Altered Mental Status -07/28/[address] without contrast- Moderate volume loss and chronic microvascular ischemic disease. No evidence of acute intracranial hemorrhage mass effect or midline shift. - 07/29/2018 Brain MRI with and without contrast- multiple small cortical and subcortical infarcts in both hemispheres right greater than left - 07/30/2018 CTA head and neck- No evidence of stenosis or occlusion, Unremarkable CT Angiography of the Brain. - recommend aspirin 325 mg po daily - recommend permissive htn (tx if bp > 220/110) - continue with physical therapy, occupation therapy, and speech therapy - echocardiogram ordered and pending Patient case discussed with and plan approved by attending physician, Dr. Morales. Objective - Vital Signs/Intake and Output Vital Signs (last 24 hours): Temp Pulse Resp BP Pulse Ox 98.0 F 51 L 20 131/71 97 07/31/18 05:52 07/31/18 05:53 07/31/18 05:52 07/31/18 05:52 07/31/18 05:52 Intake and Output: 07/31/18 07/31/18 06:59 18:59 Intake Total 1759 Output Total 800 Balance 959 - Medications Medications: Current Medications Amlodipine Besylate (Norvasc) 5 mg PO DAILY [facility] Last Admin: 07/30/18 10:20 Dose: 5 mg Aspirin (Ecotrin) 81 mg PO 0800 [facility] Last Admin: 07/30/18 08:01 Dose: 81 mg Atorvastatin Calcium (Lipitor) 40 mg PO DIN [facility] Last Admin: 07/30/18 18:45 Dose: 40 mg Cholecalciferol (Vitamin D) 2,000 intlu PO DAILY [facility] Last Admin: 07/30/18 10:20 Dose: 2,000 intlu Dextrose (Dextrose 50% Inj) 0 ml IV STAT PRN; 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 Reason: Hypoglycemia Protocol Last Admin: 07/29/18 05:55 Dose: 25 ml Heparin Sodium/Sodium Chloride (Heparin 80270 Units/250ml 1/2 Normal Saline) 25,000 units in 250 mls @ 7.893 mls/hr IV .Q24H [facility]; Protocol Last Titration: 07/31/18 01:25 Dose: 4 units/kg/hr, 2.631 mls/hr Dextrose (Dextrose 5% In Water 1000 Ml) 1,000 mls @ 0 mls/hr IV .Q0M PRN; 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 Reason: Hypoglycemia Protocol Last Admin: 07/29/18 05:55 Dose: 100 mls/hr Dextrose/Sodium Chloride (Dextrose 5%/0.45% Ns 1000 Ml) 1,000 mls @ 100 mls/hr IV .Q10H [facility] Last Admin: 07/30/18 21:00 Dose: 100 mls/hr Insulin Human Regular (Humulin R Med) 0 units SC ACHS [facility]; Protocol Last Admin: 07/30/18 22:00 Dose: Not Given Metoprolol Tartrate (Lopressor) 25 mg PO BID [facility] Last Admin: 07/30/18 18:45 Dose: 25 mg Pantoprazole Sodium (Protonix Ec Tab) 40 mg PO 0600 [facility] Last Admin: 07/31/18 05:46 Dose: 40 mg Quetiapine Fumarate (Seroquel) 12.5 mg PO HS PRN; 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 Reason: psychosis/agitation - Labs Labs: 07/31/18 07:00 07/30/18 06:00 PT 11.4 SECONDS (9.4-12.5) 07/28/18 17:46 INR 1.00 07/28/18 17:46 APTT 87.9 Seconds (25.1-36.5) H 07/31/18 00:30
[2018-07-31 07:41] LABS: ALB/GLOB RATIO 0.6 (1.1-1.8); ALT/SGPT 45 U/L (7-56); AST/SGOT 24 U/L (14-36); BLOOD UREA NITROGEN 13 mg/dL (7-21); CALCIUM 7.6 mg/dL (8.4-10.5); GFR NON-AFRICAN AMERICAN > 60
[2018-07-31] MEDS: Insulin Reg-MEDIUM-Coverage SC SCH ×4 (08:50→22:00)
--- NOTE | 2018-07-31 11:00 | PN ---
DATE: 07/31/2018 CARDIOLOGY FOLLOWUP SUBJECTIVE: The patient remains confused. VITAL SIGNS: Blood pressure is 131/71, the heart rate is in the 60s. NECK: Negative JVD. LUNGS: Without rales. HEART: Reveals S1, S2. EXTREMITIES: Without edema. LABORATORY: Hemoglobin is 10.7. Chemistries: BUN and creatinine are unremarkable. IMPRESSION: 1. Cerebrovascular accident. 2. Altered mental status. 3. Qmt-QS-xndabxhxk myocardial infarction. 4. Anemia. 5. Coronary artery disease. PLAN: Given these findings, the patient is tolerating medical therapy for a non-STEMI at this time. Tello Talbert MD
[2018-07-31] MEDS: Cholecalciferol 1,000 INTLU TAB PO SCH (12:53)
[2018-07-31] MEDS: Sodium Chloride 0.9% 1,000 ML IV SCH (14:45)
--- NOTE | 2018-07-31 17:57 | CP.PCM.PN ---
<David Sun - Last Filed: 07/31/18 17:54> Subjective - Date & Time of Evaluation Date of Evaluation: 07/31/18 Time of Evaluation: 07:00 - Subjective Subjective: David Sun, PGY1 Medicine Progress Note for Dr. Quevedo Patient was seen and examined at bedside this morning. Vital signs are stable. Patient was alert and oriented x3, to person, place, time. However, she was not responding to ROS appropriately. Daughter was not present today at bedside. Patient was later seen out of bed to chair. Objective - Vital Signs/Intake and Output Vital Signs (last 24 hours): Temp Pulse Resp BP Pulse Ox 98.0 F 79 20 131/71 97 07/31/18 05:52 07/31/18 10:00 07/31/18 05:52 07/31/18 05:52 07/31/18 05:52 Intake and Output: 07/31/18 07/31/18 06:59 18:59 Intake Total 1759 18 Output Total 800 Balance 959 18 - Medications Medications: Current Medications Amlodipine Besylate (Norvasc) 5 mg PO DAILY [facility] Last Admin: 07/30/18 10:20 Dose: 5 mg Aspirin (Ecotrin) 325 mg PO DAILY [facility] Atorvastatin Calcium (Lipitor) 40 mg PO DIN [facility] Last Admin: 07/31/18 17:41 Dose: 40 mg Cholecalciferol (Vitamin D) 2,000 intlu PO DAILY [facility] Last Admin: 07/31/18 12:53 Dose: 2,000 intlu Sodium Chloride (Sodium Chloride 0.9%) 1,000 mls @ 100 mls/hr IV .Q10H [facility] Last Admin: 07/31/18 14:45 Dose: 100 mls/hr Insulin Human Regular (Humulin R Med) 0 units SC ACHS [facility]; Protocol Last Admin: 07/31/18 17:40 Dose: Not Given Metoprolol Tartrate (Lopressor) 25 mg PO BID [facility] Last Admin: 07/30/18 18:45 Dose: 25 mg Pantoprazole Sodium (Protonix Ec Tab) 40 mg PO 0600 [facility] Last Admin: 07/31/18 05:46 Dose: 40 mg Quetiapine Fumarate (Seroquel) 12.5 mg PO HS PRN; 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 Reason: psychosis/agitation - Labs Labs: 07/31/18 07:00 07/31/18 07:00 PT 11.4 SECONDS (9.4-12.5) 07/28/18 17:46 INR 1.00 07/28/18 17:46 APTT 68.6 Seconds (25.1-36.5) H 07/31/18 15:50 - Constitutional Appears: No Acute Distress - Head Exam Head Exam: ATRAUMATIC, NORMAL INSPECTION, NORMOCEPHALIC - Eye Exam Eye Exam: EOMI, Normal appearance, PERRL Pupil Exam: NORMAL ACCOMODATION, PERRL - ENT Exam ENT Exam: Mucous Membranes Moist, Normal Exam - Respiratory Exam Respiratory Exam: Clear to Ausculation Bilateral, NORMAL BREATHING PATTERN. absent: Rales, Rhonchi, Wheezes - Cardiovascular Exam Cardiovascular Exam: REGULAR RHYTHM, +S1, +S2. absent: Murmur - GI/Abdominal Exam GI & Abdominal Exam: Soft, Normal Bowel Sounds. absent: Tenderness - Extremities Exam Extremities Exam: Full ROM, Normal Capillary Refill, Normal Inspection. absent: Joint Swelling, Pedal Edema - Neurological Exam Neurological Exam: Alert, Awake, CN II-XII Intact, Oriented x3 - Skin Skin Exam: Dry, Intact, Normal Color, Warm Assessment and Plan - Assessment and Plan (Free Text) Assessment: Patient is a 77 y/o F with PMH of HTN, DM2, OA, and COPD who presents to ED with family for AMS, delusions, and hallucinations. Patient is admitted to the floor for new Watershed stroke. Plan: Altered Mental Status 2/2 New Watershed Stroke - Brain MRI: multiple small cortical and subcortical infarcts in both hemispheres (R>L). Infarcts could be due to hypotensive watershed infarct. - Head/Neck CTA negative - f/u Echo official read - f/u EEG - Blood pressure meds and blood thinners (DVT/PE ppx) held at this time - ASA 325 mg PO for neuroprotection - Neuro recs appreciated - PT/OT - Psychiatry consulted. Given seroquel. Daughter was not present at bedside today to provide legal documents showing proof of POA. - Dysphagia diet NSTEMI - No cath at this time. Continue with medical management. 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 Continue management as per cardio and neuro recommendations. Case was discussed and reviewed with Attending Physician, Dr. Quevedo. <Milagros Quevedo - Last Filed: 08/01/18 06:37> Objective - Vital Signs/Intake and Output Vital Signs (last 24 hours): Temp Pulse Resp BP Pulse Ox 98 F 76 19 142/81 98 08/01/18 00:01 08/01/18 02:00 08/01/18 00:01 08/01/18 00:01 08/01/18 00:01 Intake and Output: 07/31/18 08/01/18 18:59 06:59 Intake Total 18 1680 Balance 18 1680 - Medications Medications: Current Medications Amlodipine Besylate (Norvasc) 5 mg PO DAILY [facility] Last Admin: 07/30/18 10:20 Dose: 5 mg Aspirin (Ecotrin) 325 mg PO DAILY [facility] Atorvastatin Calcium (Lipitor) 40 mg PO DIN [facility] Last Admin: 07/31/18 17:41 Dose: 40 mg Cholecalciferol (Vitamin D) 2,000 intlu PO DAILY [facility] Last Admin: 07/31/18 12:53 Dose: 2,000 intlu Sodium Chloride (Sodium Chloride 0.9%) 1,000 mls @ 100 mls/hr IV .Q10H [facility] Last Admin: 08/01/18 04:13 Dose: 100 mls/hr Insulin Human Regular (Humulin R Med) 0 units SC [facility]; Protocol Last Admin: 07/31/18 22:00 Dose: Not Given Metoprolol Tartrate (Lopressor) 25 mg PO BID [facility] Last Admin: 07/30/18 18:45 Dose: 25 mg Pantoprazole Sodium (Protonix Ec Tab) 40 mg PO 0600 [facility] Last Admin: 08/01/18 05:37 Dose: 40 mg Quetiapine Fumarate (Seroquel) 12.5 mg PO HS PRN; 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 Reason: psychosis/agitation - Labs Labs: 08/01/18 05:30 08/01/18 05:30 PT 12.6 SECONDS (9.4-12.5) H 08/01/18 05:30 INR 1.09 08/01/18 05:30 APTT 36.0 Seconds (25.1-36.5) 08/01/18 05:30 Attending/Attestation - Attestation I have personally seen and examined this patient.: Yes I have fully participated in the care of the patient.: Yes I have reviewed all pertinent clinical information, including history, physical exam and plan: Yes Notes (Text): 07/31/18 77 year old female with past medical history of diabetes, hypertension and COPD who presented with altered mental status with delusions and hallucinations as per family. CT head showed chronic microvascular ischemic disease and moderate volume loss. CTA head/neck was negative. EEG was done with pending read. MRI brain showed multiple small cortical / subcortical infarcts in both hemispheres, right greater than left. Patient is on aspirin and statin. PT evaluation was appreciated; recommended acute rehab. Neurology and psychiatry are following. Patient was also found to have possible NSTEMI with elevated troponins; 0.18-0.14-0.14. She is on aspirin and statin. Metoprolol is held due to watershed infarcts. Cardiology is following; continue with medical management. Patient was also initially hypoglycemic which improved with D50. Metformin is on hold. Hemoglobin A1c is 5.3. Will continue to monitor. Milagros Quevedo MD Hospitalist.
--- NOTE | 2018-07-31 19:27 | CARD ---
APPROVED REPORT Date of service: 07/31/2018 EXAM: Two-dimensional and M-mode echocardiogram with Doppler and color Doppler. INDICATION STROKE 2D DIMENSIONS Left Atrium (2D)4.0 (1.6-4.0cm)IVSd0.9 (0.7-1.1cm) LVDd4.0 (3.9-5.9cm)PWd1.0 (0.7-1.1cm) LVDs2.6 (2.5-4.0cm)FS (%) 33.4 % LVEF (%)62.7 (>50%) M-Mode DIMENSIONS Aortic Root3.20 (2.2-3.7cm)Aortic Cusp Exc.1.50 (1.5-2.0cm) Aortic Valve AoV Peak Ffyipocx987.0cm/sAoV VTI43.3cmAO Peak GR.17mmHg LVOT Peak Kkeikjgu186.0cm/sLVOT VTI19.20cmAO Mean GR.9mmHg AI P 1/2 Pegw571sy Mitral Valve MV E Lgtnaoei08.0cm/sMV A Bxahltql28.8cm/sE/A ratio0.9 TDI Lateral E' Peak V10.40cm/sMedial E' Peak V6.53cm/sE/Lateral E'7.7 E/Medial E'12.3 Pulmonary Valve PV Peak Cyxekjlc93.3cm/sPV Peak Grad.4mmHg Tricuspid Valve TR Peak Uylbwvtn894eu/sRAP EKNXYDKY58pbMvZA Peak Gr.29mmHg [id number] LEFT VENTRICLE The left ventricle is normal size. There is normal left ventricular wall thickness. The left ventricular function is normal. The left ventricular ejection fraction is within the normal range. There is normal LV segmental wall motion. Transmitral Doppler flow pattern is Grade I-abnormal relaxation pattern. RIGHT VENTRICLE The right ventricle is normal size. There is normal right ventricular wall thickness. The right ventricular systolic function is normal. ATRIA The left atrium is borderline dilated. The right atrium is mildly dilated. AORTIC VALVE The aortic valve is moderately sclerotic. There is moderate to severe aortic regurgitation. MITRAL VALVE The mitral valve is mildly thickened. There is no mitral valve regurgitation noted. There is no mitral valve stenosis. TRICUSPID VALVE There is mild tricuspid regurgitation. There is mild pulmonary hypertension. PULMONIC VALVE The pulmonary valve is normal in structure. There is trace pulmonic valvular regurgitation. GREAT VESSELS The aortic root is normal size. The aortic root displays moderate to severe sclerocalcific changes of the aortic PERICARDIAL EFFUSION There is no pericardial effusion. <Conclusion> The left ventricle is normal size. There is normal left ventricular wall thickness. The left ventricular function is normal. The left ventricular ejection fraction is within the normal range. There is normal LV segmental wall motion. Transmitral Doppler flow pattern is Grade I-abnormal relaxation pattern. There is moderate to severe aortic regurgitation. There is mild tricuspid regurgitation. There is mild pulmonary hypertension.
--- NOTE | 2018-08-01 01:49 | CON ---
DATE: 07/31/2018 HISTORY OF PRESENT ILLNESS: The patient is a 77-year-old female with no prior psychiatric history and likely with delirium contributing to her altered mental status, which consists of delusions and confusion. Psychiatry has been following and I reviewed Dr. Jiang's consultation from 07/30/2018 and then recent notes reviewed, as well as spoke with the patient at bedside. Presently, the patient is confused but she is responsive and she is demonstrating poverty of speech. She denies any current pain, but does report that her "mind is fuzzy." The patient is not able to answer any questions regarding depression or hopefulness or hopelessness or even hallucinations. In general, the patient indicated she "feels alright." She does not know which month it is, but she is aware that she is at [facility] and that it is 2017. The patient does not express any fear or paranoia and she does not express any thoughts about her daughter not being her true daughter or her neurologist not being her true doctor and I was not able to elicit this type of delusion or any other type of delusion during the course of my questioning; however, her focus is inconsistent, and she is not responding to internal stimuli but she is internally preoccupied and her insight and judgement are clearly impaired. Labs and vitals were reviewed by this provider. MEDICATIONS: Include Seroquel 12.5 mg p.o. at h.s. IMPRESSION: The patient is currently delirious, but she has not been delusions were not elicited this morning. RECOMMENDATIONS: At this time, we have recommended to continue with Seroquel at 12.5 h.s. as needed, however, it does not appear the patient required any of this medication since it was initiated. Psychiatry will continue to follow every other day. If you need more imminent followup, please bring that to our attention and we will come and see her earlier. Next follow up will be on 08/02/[address] Prakash. Marina Prakash MD
[2018-08-01] MEDS: Sodium Chloride 0.9% 1,000 ML IV SCH ×3 (04:13→22:29)
[2018-08-01] MEDS: Pantoprazole 40 mg EC Tab PO SCH (05:37)
[2018-08-01 06:18] LABS: EOS # 0.1 (0.0-0.7); EOS % 1.2 % (1.5-5.0); GRAN # 3.19 (1.4-6.5); GRAN % 74.8 % (50.0-68.0); HEMOGLOBIN 9.7 g/dL (12.0-16.0); LYMPH # 0.7 (1.2-3.4); LYMPH % 16.7 % (22.0-35.0); MEAN CELL VOLUME 86.6 fl (80.0-105.0); MEAN CORPUSCULAR HEMOGLOBIN 28.9 pg (25.0-35.0); MEAN CORPUSCULAR HGB CONC 33.3 g/dl (31.0-37.0); MEAN PLATELET VOLUME 8.3 fl (7.0-11.0); MONO # 0.3 (0.1-0.6); MONO % 7.3 % (1.0-6.0); RBC 3.36 10^6/uL (3.5-6.1); RED CELL DISTRIBUTION WIDTH 19.2 % (11.5-14.5); WHITE BLOOD COUNT 4.3 10^3/uL (4.5-11.0)
[2018-08-01 06:22] LABS: INR 1.09; PROTHROMBIN TIME 12.6 SECONDS (9.4-12.5)
[2018-08-01 06:33] LABS: ALB/GLOB RATIO 0.6 (1.1-1.8); ALBUMIN 1.9 g/dL (3.0-4.8); ALT/SGPT 42 U/L (7-56); AST/SGOT 20 U/L (14-36); BLOOD UREA NITROGEN 13 mg/dL (7-21); CALCIUM 7.5 mg/dL (8.4-10.5); GFR NON-AFRICAN AMERICAN > 60
[2018-08-01] MEDS: Insulin Reg-MEDIUM-Coverage SC SCH ×4 (08:15→22:23)
[2018-08-01] MEDS ORDERED: Potassium Chloride 20 mEq ER Tab PO STA (08:47)
--- NOTE | 2018-08-01 08:48 | CP.PCM.PN ---
<Walter Tijerina - Last Filed: 08/01/18 12:42> Subjective - Date & Time of Evaluation Date of Evaluation: 08/01/18 Time of Evaluation: 10:40 - Subjective Subjective: Walter Tijerina- Internal Medicine Resident- Consult Note on Behalf of Neurology Team Subjective: Patient seen and examined at bedside. No acute events overnight. Patient is more awake and alert. Offers no new complaints at this time. Will not answer answers appropriately. Denies weakness, dizziness, numbness, and focal deficits. 12 point ROS negative except as indicated in the HPI Physical Examination: - Constitutional Appears: Well, Non-toxic, No Acute Distress - Head Exam Head Exam: ATRAUMATIC, NORMAL INSPECTION, NORMOCEPHALIC - Eye Exam Eye Exam: EOMI, Normal appearance - ENT Exam ENT Exam: Mucous Membranes Moist, Normal Exam, No tongue laceration - Neck Exam Neck exam: Positive for: Full Rom, Normal Inspection - Respiratory Exam Respiratory Exam: Clear to Auscultation Bilateral, NORMAL BREATHING PATTERN. absent: Accessory Muscle Use, Rales, Rhonchi, Wheezes, Respiratory Distress - Cardiovascular Exam Cardiovascular Exam: REGULAR RHYTHM, +S1, +S2 - GI/Abdominal Exam GI & Abdominal Exam: Normal Bowel Sounds, Soft. absent: Distended, Firm, Guarding, Rebound, Rigid, Tenderness - Extremities Exam Extremities exam: Positive for: full ROM, normal capillary refill, normal inspection, pedal pulses present - Neurological Exam Neurological exam: awake, alert, orientated x [address], responds to verbal stimuli, answers questions inappropriately, follows commands, moves extremities past midline, will not cooperative with full neuro exam - Skin Skin Exam: Intact, Normal Color, Warm Assessment and Plan: Patient is a 77 year old female with a past medical history of HTN, DM2, and OA who was admitted for evaluation and treatment of altered mental status and hallucinations/delusions. Neurology was consulted for management of altered mental status. Altered Mental Status -07/28/[address] without contrast- Moderate volume loss and chronic microvascular ischemic disease. No evidence of acute intracranial hemorrhage mass effect or midline shift. - 07/29/2018 Brain MRI with and without contrast- multiple small cortical and subcortical infarcts in both hemispheres right greater than left - 07/30/2018 CTA head and neck- No evidence of stenosis or occlusion, Unremarkable CT Angiography of the Brain. - 07/2018 Echocardiogram- LVEF 63%, moderate to severe aortic regurg - recommend aspirin 325 mg po daily - start plavix 75mg PO daily - continue with physical therapy, occupation therapy, and speech therapy - recommend seroquel 25mg PO daily, psych has placed patient on 12.5mg QHS prn Patient case discussed with and plan approved by attending physician, Dr. Morales. Objective - Vital Signs/Intake and Output Vital Signs (last 24 hours): Temp Pulse Resp BP Pulse Ox 97.8 F 74 19 107/67 94 L 08/01/18 06:00 08/01/18 06:00 08/01/18 06:00 08/01/18 06:00 08/01/18 06:00 Intake and Output: 08/01/18 08/01/18 06:59 18:59 Intake Total 1680 Balance 1680 - Medications Medications: Current Medications Amlodipine Besylate (Norvasc) 5 mg PO DAILY [facility] Last Admin: 07/30/18 10:20 Dose: 5 mg Aspirin (Ecotrin) 325 mg PO DAILY [facility] Atorvastatin Calcium (Lipitor) 40 mg PO DIN [facility] Last Admin: 07/31/18 17:41 Dose: 40 mg Cholecalciferol (Vitamin D) 2,000 intlu PO DAILY [facility] Last Admin: 07/31/18 12:53 Dose: 2,000 intlu Sodium Chloride (Sodium Chloride 0.9%) 1,000 mls @ 100 mls/hr IV .Q10H [facility] Last Admin: 08/01/18 04:13 Dose: 100 mls/hr Insulin Human Regular (Humulin R Med) 0 units SC [facility]; Protocol Last Admin: 07/31/18 22:00 Dose: Not Given Metoprolol Tartrate (Lopressor) 25 mg PO BID [facility] Last Admin: 07/30/18 18:45 Dose: 25 mg Pantoprazole Sodium (Protonix Ec Tab) 40 mg PO 0600 [facility] Last Admin: 08/01/18 05:37 Dose: 40 mg Quetiapine Fumarate (Seroquel) 12.5 mg PO HS PRN; 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 Reason: psychosis/agitation - Labs Labs: 08/01/18 05:30 08/01/18 05:30 PT 12.6 SECONDS (9.4-12.5) H 08/01/18 05:30 INR 1.09 08/01/18 05:30 APTT 36.0 Seconds (25.1-36.5) 08/01/18 05:30 <Shital Morales - Last Filed: 08/01/18 21:02> Objective - Vital Signs/Intake and Output Vital Signs (last 24 hours): Temp Pulse Resp BP Pulse Ox 97.5 F L 91 H 19 132/62 94 L 08/01/18 17:33 08/01/18 17:33 08/01/18 17:33 08/01/18 17:33 08/01/18 06:00 - Medications Medications: Current Medications Amlodipine Besylate (Norvasc) 5 mg PO DAILY [facility] Last Admin: 07/30/18 10:20 Dose: 5 mg Aspirin (Ecotrin) 325 mg PO DAILY [facility] Last Admin: 08/01/18 11:37 Dose: 325 mg Atorvastatin Calcium (Lipitor) 40 mg PO DIN [facility] Last Admin: 08/01/18 17:47 Dose: 40 mg Cholecalciferol (Vitamin D) 2,000 intlu PO DAILY [facility] Last Admin: 08/01/18 11:38 Dose: 2,000 intlu Clopidogrel Bisulfate (Plavix) 75 mg PO DAILY [facility] Last Admin: 08/01/18 13:40 Dose: 75 mg Sodium Chloride (Sodium Chloride 0.9%) 1,000 mls @ 100 mls/hr IV .Q10H [facility] Last Admin: 08/01/18 17:48 Dose: 100 mls/hr Insulin Human Regular (Humulin R Med) 0 units SC ACHS [facility]; Protocol Last Admin: 08/01/18 17:17 Dose: Not Given Metoprolol Tartrate (Lopressor) 25 mg PO BID [facility] Last Admin: 07/30/18 18:45 Dose: 25 mg Pantoprazole Sodium (Protonix Ec Tab) 40 mg PO 0600 [facility] Last Admin: 08/01/18 05:37 Dose: 40 mg Quetiapine Fumarate (Seroquel) 12.5 mg PO HS PRN; 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 Reason: psychosis/agitation - Labs Labs: 08/01/18 05:30 08/01/18 05:30 PT 12.6 SECONDS (9.4-12.5) H 08/01/18 05:30 INR 1.09 08/01/18 05:30 APTT 36.0 Seconds (25.1-36.5) 08/01/18 05:30 Assessment and Plan - Assessment and Plan (Free Text) Assessment: 77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 Plan: 1. psychiatry followup for antipsychotic. 2. Continue asa and plavix. Agree with residents assessment and plan. DR. Morales
--- NOTE | 2018-08-01 09:09 | CP.PCM.PN ---
<David Sun - Last Filed: 08/01/18 16:30> Subjective - Date & Time of Evaluation Date of Evaluation: 08/01/18 Time of Evaluation: 07:00 - Subjective Subjective: David Sun, PGY1 Medicine Progress Note for Dr. Quevedo Patient was seen and examined at bedside this morning. As told by nursing staff, patient has had frequent loose watery stools. Patient also verbalized this. Her mental status was much better today. She is AAOx3, however patient has to concentrate for a longer period of time to answer questions. Daughter was not pr esent at bedside. Patient was able to endorse no chest pain or shortness of breath. She follows commands and moves all extremities. Vital signs are stable. Objective - Vital Signs/Intake and Output Vital Signs (last 24 hours): Temp Pulse Resp BP Pulse Ox 97.8 F 74 19 107/67 94 L 08/01/18 06:00 08/01/18 06:00 08/01/18 06:00 08/01/18 06:00 08/01/18 06:00 Intake and Output: 08/01/18 08/01/18 06:59 18:59 Intake Total 1680 Balance 1680 - Medications Medications: Current Medications Amlodipine Besylate (Norvasc) 5 mg PO DAILY [facility] Last Admin: 07/30/18 10:20 Dose: 5 mg Aspirin (Ecotrin) 325 mg PO DAILY [facility] Atorvastatin Calcium (Lipitor) 40 mg PO DIN [facility] Last Admin: 07/31/18 17:41 Dose: 40 mg Cholecalciferol (Vitamin D) 2,000 intlu PO DAILY [facility] Last Admin: 07/31/18 12:53 Dose: 2,000 intlu Sodium Chloride (Sodium Chloride 0.9%) 1,000 mls @ 100 mls/hr IV .Q10H [facility] Last Admin: 08/01/18 04:13 Dose: 100 mls/hr Insulin Human Regular (Humulin R Med) 0 units SC [facility]; Protocol Last Admin: 07/31/18 22:00 Dose: Not Given Metoprolol Tartrate (Lopressor) 25 mg PO BID [facility] Last Admin: 07/30/18 18:45 Dose: 25 mg Pantoprazole Sodium (Protonix Ec Tab) 40 mg PO 0600 [facility] Last Admin: 08/01/18 05:37 Dose: 40 mg Quetiapine Fumarate (Seroquel) 12.5 mg PO HS PRN; 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 Reason: psychosis/agitation - Labs Labs: 08/01/18 05:30 08/01/18 05:30 PT 12.6 SECONDS (9.4-12.5) H 08/01/18 05:30 INR 1.09 08/01/18 05:30 APTT 36.0 Seconds (25.1-36.5) 08/01/18 05:30 - Constitutional Appears: No Acute Distress - Head Exam Head Exam: ATRAUMATIC, NORMAL INSPECTION, NORMOCEPHALIC - Eye Exam Eye Exam: EOMI, Normal appearance, PERRL - ENT Exam ENT Exam: Mucous Membranes Moist, Normal Exam - Neck Exam Neck Exam: Full ROM, Normal Inspection. absent: Lymphadenopathy - Respiratory Exam Respiratory Exam: Clear to Ausculation Bilateral, NORMAL BREATHING PATTERN. absent: Rales, Rhonchi, Wheezes - Cardiovascular Exam Cardiovascular Exam: REGULAR RHYTHM, +S1, +S2. absent: Murmur - GI/Abdominal Exam GI & Abdominal Exam: Soft, Normal Bowel Sounds. absent: Tenderness - Extremities Exam Extremities Exam: Full ROM, Normal Capillary Refill, Normal Inspection. absent: Joint Swelling, Pedal Edema - Neurological Exam Neurological Exam: Alert, Awake, Oriented x3 Neuro motor strength exam: Left Upper Extremity: 5, Right Upper Extremity: 5, Left Lower Extremity: 4, Right Lower Extremity: 4 - Psychiatric Exam Additional comments: Patient has to concentrate to answer simple questions. - Skin Skin Exam: Dry, Intact, Normal Color, Warm Assessment and Plan - Assessment and Plan (Free Text) Assessment: Patient is a 77 y/o F with PMH of HTN, DM2, OA, and COPD who presents to ED with family for AMS, delusions, and hallucinations. Patient is admitted to the floor for new Watershed stroke. Plan: Altered Mental Status 2/2 New Watershed Stroke - PT recommends acute rehab - OT - f/u EEG - Brain MRI: multiple small cortical and subcortical infarcts in both hemispheres (R>L). Infarcts could be due to hypotensive watershed infarct. - Head/Neck CTA negative - Echo: EF 62%. Mod-severe aortic regurgitation. Mild pulmonary HTN. - Blood pressure meds and blood thinners (DVT/PE ppx) held at this time - c/w ASA 325 mg PO for neuroprotection - Neuro recs appreciated - Psychiatry consulted. Appreciated recs. - Dysphagia diet Diarrhea with electrolyte abnormalities - C. diff negative - frequent watery stool noted by nursing staff, also verbalized by patient - replete mag, phos, and potassium as needed NSTEMI - elevated troponins 2/2 stroke - No cath at this time. Continue with medical management. - Cardio recommended Lipitor 20mg, c/w ASA 325mg, Lopressor 25mg BID, and Plavix 75mg. No heparin gtt at this time. - trops 0.18 on admission, repeat trops were .14 -- secondary to stroke Hx of HTN - BP meds held at this time due to new stroke - Home meds are Lopressor 25mg BID and norvasc 5mg daily Hx of DM II - avoid hypoglycemia - ISS DVT ppx: SCDs GI ppx: PTX Dispo: Patient will be monitored on telemetry. Patient is a candidate for acute rehab on Saturday. Case was discussed and reviewed with Attending Physician, Dr. Quevedo. <Milagros Quevedo - Last Filed: 08/01/18 17:03> Objective - Vital Signs/Intake and Output Vital Signs (last 24 hours): Temp Pulse Resp BP Pulse Ox 98.6 F 90 19 142/78 94 L 08/01/18 12:00 08/01/18 12:00 08/01/18 12:00 08/01/18 12:00 08/01/18 06:00 Intake and Output: 08/01/18 08/01/18 06:59 18:59 Intake Total 1680 Balance 1680 - Medications Medications: Current Medications Amlodipine Besylate (Norvasc) 5 mg PO DAILY [facility] Last Admin: 07/30/18 10:20 Dose: 5 mg Aspirin (Ecotrin) 325 mg PO DAILY [facility] Last Admin: 08/01/18 11:37 Dose: 325 mg Atorvastatin Calcium (Lipitor) 40 mg PO DIN [facility] Last Admin: 07/31/18 17:41 Dose: 40 mg Cholecalciferol (Vitamin D) 2,000 intlu PO DAILY [facility] Last Admin: 08/01/18 11:38 Dose: 2,000 intlu Clopidogrel Bisulfate (Plavix) 75 mg PO DAILY [facility] Last Admin: 08/01/18 13:40 Dose: 75 mg Sodium Chloride (Sodium Chloride 0.9%) 1,000 mls @ 100 mls/hr IV .Q10H [facility] Last Admin: 08/01/18 04:13 Dose: 100 mls/hr Insulin Human Regular (Humulin R Med) 0 units SC ACHS [facility]; Protocol Last Admin: 07/31/18 22:00 Dose: Not Given Metoprolol Tartrate (Lopressor) 25 mg PO BID [facility] Last Admin: 07/30/18 18:45 Dose: 25 mg Pantoprazole Sodium (Protonix Ec Tab) 40 mg PO 0600 [facility] Last Admin: 08/01/18 05:37 Dose: 40 mg Quetiapine Fumarate (Seroquel) 12.5 mg PO HS PRN; 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 Reason: psychosis/agitation - Labs Labs: 08/01/18 05:30 08/01/18 05:30 PT 12.6 SECONDS (9.4-12.5) H 08/01/18 05:30 INR 1.09 08/01/18 05:30 APTT 36.0 Seconds (25.1-36.5) 08/01/18 05:30 Attending/Attestation - Attestation I have personally seen and examined this patient.: Yes I have fully participated in the care of the patient.: Yes I have reviewed all pertinent clinical information, including history, physical exam and plan: Yes Notes (Text): 08/01/18 16:54 77 year old female with past medical history of diabetes, hypertension and COPD who presented with altered mental status with delusions and hallucinations as per family. CT head showed chronic microvascular ischemic disease and moderate volume loss. CTA head/neck was negative. EEG was done with pending read. MRI brain showed multiple small cortical / subcortical infarcts in both hemispheres, right greater than left. Patient is on aspirin and statin. PT evaluation was appreciated; recommended acute rehab. Neurology and psychiatry are following. Patient was also found to have possible NSTEMI with mildly elevated troponins; 0.18-0.14-0.14. She denies any chest pain. She is on aspirin, plavix and statin. Metoprolol is held due to watershed infarcts. Cardiology is following; continue with medical management. Patient was also initially hypoglycemic which improved with D50. Metformin is on hold. Hemoglobin A1c is 5.3. Will continue to monitor. Will replete and repeat lytes (potassium, magnesium and phosphorous). Patient was complaining of diarrhea yesterday; better today. CDif was negative. Case was discussed with CMx/Sw; d/c planning to acute rehab if accepted and bed available. Milagros Quevedo MD Hospitalist.
[2018-08-01] MEDS ORDERED: Magnesium Sulfate 1 gm in D5W 1 GM/100 ML BAG IVPB ONE (10:54)
[2018-08-01] MEDS ORDERED: Potassium & Sodium Phosphate PO ONE (10:55)
[2018-08-01] MEDS: Aspirin 325 mg EC Tablets PO SCH (11:37)
[2018-08-01] MEDS: Cholecalciferol 1,000 INTLU TAB PO SCH (11:38)
--- NOTE | 2018-08-01 14:10 | PN ---
DATE: 08/01/[address] Tello Talbert. SUBJECTIVE: The patient was not very cooperative in history taking. She did report having frequent bowel movements and urination and she asked me if I was a real doctor, I should take care of it. She denied chest pain. PHYSICAL EXAMINATION: VITAL SIGNS: Blood pressure 107/67, heart rate 74, temperature 97.8, respirations 19. HEENT: Pale conjunctive. CHEST: Clear. HEART: S1 and S2 regular. EXTREMITIES: No edema. LABORATORY DATA: Today's hemoglobin and hematocrit 9.7 and 29.1, white count 12.3, platelet count 162,000. SMA-7: Sodium 133, potassium 3.4, chloride 102, CO2 of 29, glucose 79, BUN 13, creatinine 0.8, magnesium 1.6, phosphorus 1.8, calcium 7.5. Calcium, phosphorus and magnesium are all below normal. Head and neck CT angio: Unremarkable CT angio of the brain. Brain MRI: Multiple small cortical subcortical infarcts in both hemispheres, right greater than left. The infarcts could be due to hypertensive watershed infarct type. ASSESSMENT: 1. Bilateral cortical and subcortical infarcts. 2. Borderline troponin elevation, which represent the cerebral infarcts rather than myocardial infarcts. 3. Hypokalemia, hypomagnesemia, hypophosphatemia and hypocalcemia. 4. Altered mental status. RECOMMENDATIONS: Continue aspirin 325 mg once a day, Lipitor 20 mg once a day, Lopressor 25 mg twice a day, Plavix 75 mg once a day. The echocardiography study that was performed yesterday revealed normal left ventricular systolic function. Normal wall motion with moderate to severe aortic insufficiency and mild pulmonary hypertension. Girish Goss MD
[2018-08-02] MEDS: Pantoprazole 40 mg EC Tab PO SCH (05:56)
[2018-08-02 06:56] LABS: BASO # 0.01 K/mm3 (0.0-2.0); BASO % 0.4 % (0.0-3.0); EOS # 0.1 (0.0-0.7); EOS % 2.9 % (1.5-5.0); GRAN # 1.82 (1.4-6.5); GRAN % 65.7 % (50.0-68.0); HEMOGLOBIN 10.1 g/dL (12.0-16.0); LYMPH # 0.6 (1.2-3.4); LYMPH % 21.3 % (22.0-35.0); MEAN CELL VOLUME 86.6 fl (80.0-105.0); MEAN CORPUSCULAR HEMOGLOBIN 28.1 pg (25.0-35.0); MEAN CORPUSCULAR HGB CONC 32.5 g/dl (31.0-37.0); MEAN PLATELET VOLUME 8.2 fl (7.0-11.0); MONO # 0.3 (0.1-0.6); MONO % 9.7 % (1.0-6.0); RBC 3.59 10^6/uL (3.5-6.1); RED CELL DISTRIBUTION WIDTH 18.9 % (11.5-14.5); WHITE BLOOD COUNT 2.8 10^3/uL (4.5-11.0)
[2018-08-02 07:23] LABS: ALB/GLOB RATIO 0.6 (1.1-1.8); ALBUMIN 1.7 g/dL (3.0-4.8); ALT/SGPT 39 U/L (7-56); AST/SGOT 22 U/L (14-36); BLOOD UREA NITROGEN 14 mg/dL (7-21); CALCIUM 7.2 mg/dL (8.4-10.5); GFR NON-AFRICAN AMERICAN > 60
[2018-08-02] MEDS ORDERED: Potassium Chloride 20 mEq ER Tab PO STA (07:49)
[2018-08-02] MEDS ORDERED: Potassium & Sodium Phosphate PO ONE (08:15)
[2018-08-02] MEDS: Insulin Reg-MEDIUM-Coverage SC SCH ×4 (08:39→23:06)
[2018-08-02] MEDS: Aspirin 325 mg EC Tablets PO SCH (11:29)
[2018-08-02] MEDS: Sodium Chloride 0.9% 1,000 ML IV SCH ×2 (11:30→20:40)
[2018-08-02] MEDS: Cholecalciferol 1,000 INTLU TAB PO SCH (11:30)
--- NOTE | 2018-08-02 14:06 | PN ---
DATE: 08/02/2018 FOLLOWUP SUBJECTIVE: The patient attempted to hurt herself with a plastic food knife, trying to cut her throat. There were no injuries reported and she is currently on one-to-one watch. She denies any chest pain. PHYSICAL EXAMINATION: VITAL SIGNS: Blood pressure 133/71, heart rate 81, temperature 98, respirations 18. HEENT: Normocephalic. CHEST: Clear. HEART: S1 and S2 regular. EXTREMITIES: No edema. LABORATORY DATA: Hemoglobin and hematocrit 10.1 and 31.1, white count 2.8, platelet count 133,000. SMA-7: Sodium 133, potassium 3.2, chloride 105, CO2 of 27, glucose 79, BUN 14, creatinine 0.8, magnesium is 1.8, phosphorus 1.6, calcium 7.2. ASSESSMENT: 1. Bilateral cortical and subcortical cerebral infarcts. Borderline troponin elevation. 2. Improved hypomagnesemia. Currently, the patient is still hypokalemic and hypocalcemic with hypophosphatemia. 3. Suicidal attempt. RECOMMENDATIONS: Continue current one-to-one watch. Continue Lipitor at 40 mg daily, Lopressor 25 mg twice a day, Norvasc at 5 mg once a day, Seroquel at 12.5 mg daily. The patient did receive K-Dur and Neutra-Phos oral supplement today and is being followed by Psychiatry. Girish Goss MD
--- NOTE | 2018-08-02 15:38 | CP.PCM.PN ---
Subjective - Date & Time of Evaluation Date of Evaluation: 08/02/18 Time of Evaluation: 15:38 - Subjective Subjective: Today, Miss callahan attempted to cut herself with a butter knife, and she is now on one to one. She appears to be pscyhotic for more periods of the day now, with very few lucid periods. THere is no weakness, no aphasia, no headache, but she is not an accurate historian. On exam: Normal neurological examination, except for MMS. Objective - Vital Signs/Intake and Output Vital Signs (last 24 hours): Temp Pulse Resp BP Pulse Ox 97.4 F L 97 H 18 117/70 98 08/02/18 12:00 08/02/18 12:00 08/02/18 12:00 08/02/18 12:00 08/02/18 06:00 Intake and Output: 08/02/18 08/02/18 06:59 18:59 Intake Total 1380 Balance 1380 - Medications Medications: Current Medications Amlodipine Besylate (Norvasc) 5 mg PO DAILY [facility] Last Admin: 07/30/18 10:20 Dose: 5 mg Aspirin (Ecotrin) 325 mg PO DAILY [facility] Last Admin: 08/02/18 11:29 Dose: Not Given Atorvastatin Calcium (Lipitor) 40 mg PO DIN [facility] Last Admin: 08/01/18 17:47 Dose: 40 mg Cholecalciferol (Vitamin D) 2,000 intlu PO DAILY [facility] Last Admin: 08/02/18 11:30 Dose: Not Given Clopidogrel Bisulfate (Plavix) 75 mg PO DAILY [facility] Last Admin: 08/02/18 11:30 Dose: Not Given Sodium Chloride (Sodium Chloride 0.9%) 1,000 mls @ 100 mls/hr IV .Q10H [facility] Last Admin: 08/02/18 11:30 Dose: 100 mls/hr Insulin Human Regular (Humulin R Med) 0 units SC ACHS [facility]; Protocol Last Admin: 08/02/18 12:00 Dose: Not Given Metoprolol Tartrate (Lopressor) 25 mg PO BID [facility] Last Admin: 07/30/18 18:45 Dose: 25 mg Pantoprazole Sodium (Protonix Ec Tab) 40 mg PO 0600 [facility] Last Admin: 08/02/18 05:56 Dose: 40 mg Quetiapine Fumarate (Seroquel) 12.5 mg PO HS PRN; 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 Reason: psychosis/agitation Last Admin: 08/01/18 22:27 Dose: 12.5 mg - Labs Labs: 08/02/18 06:30 08/02/18 06:30 PT 12.6 SECONDS (9.4-12.5) H 08/01/18 05:30 INR 1.09 08/01/18 05:30 APTT 36.0 Seconds (25.1-36.5) 08/01/18 05:30 Assessment and Plan - Assessment and Plan (Free Text) Assessment: 77 yr old woman with right parietal embolic strokes, who is psychotic, that may be an underlying condition unmasked by ischemic event. Stroke workup is complete. Plan; 1. Psychiatry conusult appreciated. [address] seroqu[address] fry Neurology
--- NOTE | 2018-08-02 17:01 | CON ---
DATE OF CONSULTATION: 08/02/2018 HISTORY OF PRESENT ILLNESS: The patient is a 77-year-old female with no reported psychiatric history, who was being medically cleared on medical side and seen by Psychiatry due to altered mental status, which consists of delusion, confusion, and disorientation likely secondary to delirium. Psychiatry is following and I reviewed Dr. Jiang's consultation from 07/30/2018 as well as spoke with the patient at bedside on 07/31/2018. I have also reviewed recent staff notes and met with the patient at bedside again this morning. It does appear that the patient has slowly been becoming more oriented and acute psychosis has not been noted in recent staff notes. Specifically, the patient has not been discussing the fear of paranoia that her doctors or daughter are imposters. She again indicates that she feels that her mind is fuzzy. She feels confused, reports depression because she "has no idea what is going on." She does note that she is in the hospital. She notes that it is 2017 and that it is July. However, she becomes lost and she loses her train of thought during her responses with me and becomes vague and unsure during our interview. She indicates that she is depressed again because of her confusion. Does not have any plans to harm herself. However, I was contacted by nursing approximately an hour and a half later and she had been found with a knife up against her neck and then she required One-to-One. She remains unpredictable with poor insight and judgement and is still suffering from delirium, though I cannot rule out an underlying major depressive disorder or even psychosis, which will intermittently present itself as the patient continues to be hospitalized on the medical floor. Labs and vitals were reviewed by this provider. Relevant psychiatric medications include Seroquel 12.5 mg p.o. h.s. p.r.n. The patient received one dose last night. IMPRESSION: The patient continues to be delirious and impulsive and confused due to delirium. RECOMMENDATIONS: I will continue with Seroquel 12.5 mg p.o. h.s. p.r.n. Psychiatry will follow up with the patient in the a.m. to determine and monitor her confusion and resultant blued symptoms and will provide counseling and positive support to the patient. I recommended staff also at that time a lot of time reorienting her and reassuring her that her condition is improving. Next followup will be on 08/03/2018, by Dr. Prakash. Marina Prakash MD
[2018-08-02 17:16] LABS: HEMOGLOBIN 10.7 g/dL (12.0-16.0); MEAN CORPUSCULAR HEMOGLOBIN 28.9 pg (25.0-35.0); MEAN CORPUSCULAR HGB CONC 33.2 g/dl (31.0-37.0); MEAN PLATELET VOLUME 8.9 fl (7.0-11.0); RBC 3.7 10^6/uL (3.5-6.1); RED CELL DISTRIBUTION WIDTH 19.3 % (11.5-14.5); WHITE BLOOD COUNT 3.3 10^3/uL (4.5-11.0)
--- NOTE | 2018-08-02 17:56 | CP.PCM.PN ---
<David Sun - Last Filed: 08/02/18 17:41> Subjective - Date & Time of Evaluation Date of Evaluation: 08/02/18 Time of Evaluation: 07:00 - Subjective Subjective: David Sun, PGY1 Medicine Progress Note for Dr. Quevedo Patient seen and examined at bedside this morning. Vital signs stable. During inpatient rounds, was told by nursing staff that patient wanted to use a utensil (plastic knife) to hurt herself. She verbalized harmful intention. Patient placed on 1:1 observation and psych was informed. Patient was evaluated later on. She displays some aphasia when she speaks. Patient is awake and alert. Spoke to family member (daughter, Clark) about the incident in great length after rounds. A full 12 point ROS was conducted and unremarkable except as stated above. Objective - Vital Signs/Intake and Output Vital Signs (last 24 hours): Temp Pulse Resp BP Pulse Ox 97.4 F L 97 H 18 117/70 98 08/02/18 12:00 08/02/18 12:00 08/02/18 12:00 08/02/18 12:00 08/02/18 06:00 Intake and Output: 08/02/18 08/02/18 06:59 18:59 Intake Total 1380 Balance 1380 - Medications Medications: Current Medications Amlodipine Besylate (Norvasc) 5 mg PO DAILY [facility] Last Admin: 07/30/18 10:20 Dose: 5 mg Aspirin (Ecotrin) 325 mg PO DAILY [facility] Last Admin: 08/02/18 11:29 Dose: Not Given Atorvastatin Calcium (Lipitor) 40 mg PO DIN [facility] Last Admin: 08/01/18 17:47 Dose: 40 mg Cholecalciferol (Vitamin D) 2,000 intlu PO DAILY [facility] Last Admin: 08/02/18 11:30 Dose: Not Given Clopidogrel Bisulfate (Plavix) 75 mg PO DAILY [facility] Last Admin: 08/02/18 11:30 Dose: Not Given Sodium Chloride (Sodium Chloride 0.9%) 1,000 mls @ 100 mls/hr IV .Q10H [facility] Last Admin: 08/02/18 11:30 Dose: 100 mls/hr Insulin Human Regular (Humulin R Med) 0 units SC ACHS [facility]; Protocol Last Admin: 08/02/18 12:00 Dose: Not Given Metoprolol Tartrate (Lopressor) 25 mg PO BID [facility] Last Admin: 07/30/18 18:45 Dose: 25 mg Pantoprazole Sodium (Protonix Ec Tab) 40 mg PO 0600 [facility] Last Admin: 08/02/18 05:56 Dose: 40 mg Quetiapine Fumarate (Seroquel) 12.5 mg PO HS PRN; 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 Reason: psychosis/agitation Last Admin: 08/01/18 22:27 Dose: 12.5 mg - Labs Labs: 08/02/18 16:40 08/02/18 06:30 PT 12.6 SECONDS (9.4-12.5) H 08/01/18 05:30 INR 1.09 08/01/18 05:30 APTT 36.0 Seconds (25.1-36.5) 08/01/18 05:30 - Constitutional Appears: Confused - Head Exam Head Exam: ATRAUMATIC, NORMAL INSPECTION, NORMOCEPHALIC - Eye Exam Eye Exam: EOMI, Normal appearance, PERRL - ENT Exam ENT Exam: Mucous Membranes Moist, Normal Exam - Respiratory Exam Respiratory Exam: Clear to Ausculation Bilateral, NORMAL BREATHING PATTERN. absent: Rales, Rhonchi, Wheezes - Cardiovascular Exam Cardiovascular Exam: REGULAR RHYTHM, +S1, +S2. absent: Murmur - GI/Abdominal Exam GI & Abdominal Exam: Soft, Normal Bowel Sounds. absent: Tenderness - Extremities Exam Extremities Exam: Full ROM, Normal Capillary Refill, Normal Inspection. absent: Joint Swelling, Pedal Edema - Neurological Exam Neurological Exam: Awake - Psychiatric Exam Additional comments: Aphasia and signs of de-realization. - Skin Skin Exam: Dry, Intact, Normal Color, Warm Assessment and Plan - Assessment and Plan (Free Text) Assessment: Patient is a 77 y/o F with PMH of HTN, DM2, OA, and COPD who presents to ED with family for AMS, delusions, and hallucinations. Patient is admitted to the floor for new Watershed stroke. Plan: Altered Mental Status 2/2 New Watershed Stroke - PT recommends acute rehab - OT - f/u EEG - Brain MRI: multiple small cortical and subcortical infarcts in both hemispheres (R>L). Infarcts could be due to hypotensive watershed infarct. - Head/Neck CTA negative - Echo: EF 62%. Mod-severe aortic regurgitation. Mild pulmonary HTN. - Blood pressure meds and blood thinners (DVT/PE ppx) held at this time - c/w ASA 325 mg PO for neuroprotection - Neuro recs appreciated - Psychiatry consulted. Appreciated recs. Suicidal intent - placed on 1:1 precaution - patient verbalized intent and wanted to use plastic knife to hurt herself - c/w 1:1 precautions until psych eval - d/w patient's daughter, Clark, at great length in regards to incident - seroquel 12.5mg HS prn - f/u psych recommendation Diarrhea with electrolyte abnormalities - Patient had an episode of bloody bowel movement as per nursing staff - GI consulted. Monitor H/H - f/u GI recommendations - Phos repleted today - C. diff negative - frequent watery stools previously noted - replete mag, phos, and potassium as needed NSTEMI - elevated troponins 2/2 stroke - No cath at this time. Continue with medical management. - Cardio recommended Lipitor 20mg, c/w ASA 325mg, Lopressor 25mg BID, and Plavix 75mg. No heparin gtt at this time. - trops 0.18 on admission, repeat trops were .14 -- secondary to stroke Hx of HTN - BP meds held at this time due to new stroke - Home meds are Lopressor 25mg BID and norvasc 5mg daily Hx of DM II - avoid hypoglycemia - ISS DVT ppx: SCDs GI ppx: PTX Dispo: Patient will be monitored on telemetry. Patient is a candidate for acute rehab on Saturday. Placed on 1:1 precaution for suicidal intent, needs psych eval. Case was discussed and reviewed with Attending Physician, Dr. Quevedo. <Milagros Quevedo - Last Filed: 08/03/18 06:47> Objective - Vital Signs/Intake and Output Vital Signs (last 24 hours): Temp Pulse Resp BP Pulse Ox 97.6 F 88 19 114/58 L 97 08/03/18 00:01 08/03/18 02:00 08/03/18 00:01 08/03/18 00:01 08/03/18 00:01 Intake and Output: 08/02/18 08/03/18 18:59 06:59 Intake Total 3400 120 Output Total 3 Balance 3400 117 - Medications Medications: Current Medications Amlodipine Besylate (Norvasc) 5 mg PO DAILY [facility] Last Admin: 07/30/18 10:20 Dose: 5 mg Aspirin (Ecotrin) 325 mg PO DAILY [facility] Last Admin: 08/02/18 11:29 Dose: Not Given Atorvastatin Calcium (Lipitor) 40 mg PO DIN [facility] Last Admin: 08/02/18 18:16 Dose: 40 mg Cholecalciferol (Vitamin D) 2,000 intlu PO DAILY [facility] Last Admin: 08/02/18 11:30 Dose: Not Given Clopidogrel Bisulfate (Plavix) 75 mg PO DAILY [facility] Last Admin: 08/02/18 11:30 Dose: Not Given Sodium Chloride (Sodium Chloride 0.9%) 1,000 mls @ 100 mls/hr IV .Q10H [facility] Last Admin: 08/02/18 20:40 Dose: 100 mls/hr Insulin Human Regular (Humulin R Med) 0 units SC ACHS [facility]; Protocol Last Admin: 08/02/18 23:06 Dose: Not Given Metoprolol Tartrate (Lopressor) 25 mg PO BID [facility] Last Admin: 07/30/18 18:45 Dose: 25 mg Pantoprazole Sodium (Protonix Ec Tab) 40 mg PO 0600 [facility] Last Admin: 08/03/18 06:27 Dose: 40 mg Quetiapine Fumarate (Seroquel) 12.5 mg PO HS PRN; 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 Reason: psychosis/agitation Last Admin: 08/02/18 23:04 Dose: 12.5 mg - Labs Labs: 08/02/18 16:40 08/02/18 06:30 PT 12.6 SECONDS (9.4-12.5) H 08/01/18 05:30 INR 1.09 08/01/18 05:30 APTT 36.0 Seconds (25.1-36.5) 08/01/18 05:30 Attending/Attestation - Attestation I have personally seen and examined this patient.: Yes I have fully participated in the care of the patient.: Yes I have reviewed all pertinent clinical information, including history, physical exam and plan: Yes Notes (Text): 08/02/18 77 year old female with past medical history of diabetes, hypertension and COPD who presented with altered mental status with delusions and hallucinations as per family. CT head showed chronic microvascular ischemic disease and moderate volume loss. CTA head/neck was negative. EEG was done with pending read. MRI brain showed multiple small cortical / subcortical infarcts in both hemispheres, right greater than left. Patient was started on aspirin, plavix and statin. PT evaluation was appreciated; recommended acute rehab. Neurology and psychiatry are following. Patient was also found to have possible NSTEMI with mildly elevated troponins; 0.18-0.14-0.14. She denies any chest pain. She was on aspirin, plavix and statin. Metoprolol was held due to watershed infarcts. Cardiology is following; continue with medical management. Patient was also initially hypoglycemic which improved with D50. Metformin is on hold. Hemoglobin A1c is 5.3. Will continue to monitor. Early this morning patient has suicide attempt with plastic knife during breakfast which was confiscated. She is placed on 1:1 observation and psychiatry follow up is requested. Later in the evening she was noted to have blood in her stool. Repeat H/H is ordered. Aspirin and plavix were held. Cardiology/neurology notified and GI evaluation is requested. Milagros Queveod MD Hospitalist.
[2018-08-03] MEDS: Pantoprazole 40 mg EC Tab PO SCH (06:27)
[2018-08-03 07:43] LABS: ALB/GLOB RATIO 0.6 (1.1-1.8); ALBUMIN 1.6 g/dL (3.0-4.8); ALT/SGPT 37 U/L (7-56); AST/SGOT 16 U/L (14-36); BLOOD UREA NITROGEN 16 mg/dL (7-21); CALCIUM 7.2 mg/dL (8.4-10.5); GFR NON-AFRICAN AMERICAN > 60
[2018-08-03] MEDS ORDERED: Potassium Chloride 20 mEq ER Tab PO STA (08:07)
[2018-08-03 08:16] LABS: BASO # 0.01 K/mm3 (0.0-2.0); BASO % 0.4 % (0.0-3.0); EOS # 0.1 (0.0-0.7); EOS % 2.8 % (1.5-5.0); GRAN # 1.43 (1.4-6.5); GRAN % 57.7 % (50.0-68.0); HEMOGLOBIN 9.4 g/dL (12.0-16.0); LYMPH # 0.6 (1.2-3.4); LYMPH % 22.6 % (22.0-35.0); MEAN CELL VOLUME 87.6 fl (80.0-105.0); MEAN CORPUSCULAR HEMOGLOBIN 28.5 pg (25.0-35.0); MEAN CORPUSCULAR HGB CONC 32.5 g/dl (31.0-37.0); MEAN PLATELET VOLUME 8.4 fl (7.0-11.0); MONO # 0.4 (0.1-0.6); MONO % 16.5 % (1.0-6.0); RBC 3.3 10^6/uL (3.5-6.1); RED CELL DISTRIBUTION WIDTH 19.1 % (11.5-14.5); WHITE BLOOD COUNT 2.5 10^3/uL (4.5-11.0)
[2018-08-03] MEDS: Insulin Reg-MEDIUM-Coverage SC SCH ×4 (08:32→22:37)
[2018-08-03] MEDS: Sodium Chloride 0.9% 1,000 ML IV SCH ×3 (08:54→18:13)
--- NOTE | 2018-08-03 09:20 | CP.PCM.CON ---
<Pierce Rae - Last Filed: 08/03/18 11:35> History of Present Illness - History of Present Illness History of Present Illness: PGY6 GI Fellow Consult Note Patient is a 77yo female with PMHx significant for HTN, DM, osteoarthritis, COPD and suspect Crohn's Disease (not currently on maintenance therapy) who presented to the hospital with altered mental status with hallucinations and delusions. Presently, patient able to answer some questions but easily becomes frustrated and confused. History obtained from EMR given altered mentation. Since admission, patient has been diagnosed with acute ischemic CVAs in both hemispeheres and was started on ASA/Plavix combination. She has often been agitated and most recently, suicidal, trying to harm herself with a plastic knife. Our service is consulted as she began passing bloody bowel movements yesterday. The patient states that she has been having difficulty controlling her bowel movements for some time and has been suffering with diarrhea for many years. Admits that she was diagnosed with Crohn's Disease previously and was briefly on maintenance therapy with oral/suppository treatment but stopped as medication was cost prohibitive. Prior colonoscopy in 2014 reflects this as she did have changes consistent with mild Crohn's rectosigmoid colitis and this was echoed on biopsy with chronic active colitis, focal cryptitis/abscess. She has not seen a instrument man for years and does not have significant family support. While at bedside, she had fecal incontinence marked by loose brown stool with scant bloody/mucoid discharge. 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); Internal/external hemorrhoids Past Patient History - Infectious Disease Hx of Infectious Diseases: None - Tetanus Immunizations Tetanus Immunization: Unknown - Past Social History Smoking Status: Former Smoker - CARDIAC Hx Hypertension: Yes - PULMONARY Hx Chronic Obstructive Pulmonary Disease (COPD): Yes - NEUROLOGICAL Hx Neurological Disorder: Yes (paranoid, delusional) - HEENT Hx HEENT Problems: No - RENAL Hx Chronic Kidney Disease: No - ENDOCRINE/METABOLIC Hx Diabetes Mellitus Type 2: Yes - HEMATOLOGICAL/ONCOLOGICAL Hx Blood Disorders: No - INTEGUMENTARY Hx Dermatological Problems: No - MUSCULOSKELETAL/RHEUMATOLOGICAL Hx Arthritis: Yes - GASTROINTESTINAL Hx Gastrointestinal Disorders: No - GENITOURINARY/GYNECOLOGICAL Hx Genitourinary Disorders: No - PSYCHIATRIC Hx Psychophysiologic Disorder: Yes Hx Emotional Abuse: No Hx Paranoia: Yes (acute) Hx Physical Abuse: No - SURGICAL HISTORY Hx Surgeries: Yes Hx Orthopedic Surgery: Yes (LEFT KNEE) - ANESTHESIA Hx Anesthesia Reactions: No Hx Malignant Hyperthermia: No Meds Allergies/Adverse Reactions: Allergies Allergy/AdvReac Type Severity Reaction Status Date / Time No Known Allergies Allergy Verified 02/12/14 12:07 - Medications Medications: Current Medications Amlodipine Besylate (Norvasc) 5 mg PO DAILY [facility] Last Admin: 07/30/18 10:20 Dose: 5 mg Aspirin (Ecotrin) 325 mg PO DAILY [facility] Last Admin: 08/02/18 11:29 Dose: Not Given Atorvastatin Calcium (Lipitor) 40 mg PO DIN [facility] Last Admin: 08/02/18 18:16 Dose: 40 mg Cholecalciferol (Vitamin D) 2,000 intlu PO DAILY [facility] Last Admin: 08/02/18 11:30 Dose: Not Given Clopidogrel Bisulfate (Plavix) 75 mg PO DAILY [facility] Last Admin: 08/02/18 11:30 Dose: Not Given Sodium Chloride (Sodium Chloride 0.9%) 1,000 mls @ 100 mls/hr IV .Q10H [facility] Last Admin: 08/03/18 08:54 Dose: 100 mls/hr Insulin Human Regular (Humulin R Med) 0 units SC ACHS [facility]; Protocol Last Admin: 08/03/18 08:32 Dose: Not Given Metoprolol Tartrate (Lopressor) 25 mg PO BID [facility] Last Admin: 07/30/18 18:45 Dose: 25 mg Pantoprazole Sodium (Protonix Ec Tab) 40 mg PO 0600 [facility] Last Admin: 08/03/18 06:27 Dose: 40 mg Quetiapine Fumarate (Seroquel) 12.5 mg PO HS PRN; 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 Reason: psychosis/agitation Last Admin: 08/02/18 23:04 Dose: 12.5 mg Physical Exam - Constitutional Appears: Non-toxic, Agitated, Confused - Eye Exam Eye Exam: EOMI, PERRL - ENT Exam ENT Exam: Mucous Membranes Moist - Respiratory Exam Respiratory Exam: Clear to Auscultation Bilateral. absent: Rales, Rhonchi, Wheezes - Cardiovascular Exam Cardiovascular Exam: RRR, +S1, +S2 - GI/Abdominal Exam GI & Abdominal Exam: Normal Bowel Sounds, Soft. absent: Firm, Guarding, Hernia, Organomegaly, Rigid, Tenderness - Rectal Exam Rectal Exam: Bloody Stool (mucoid/bloody discharge with light brown, soft stool), Hemorrhoids (internal/external) - Extremities Exam Extremities exam: Positive for: normal inspection. Negative for: pedal edema - Neurological Exam Neurological exam: Alert, Oriented x3 - Psychiatric Exam Psychiatric exam: Normal Affect, Normal Mood - Skin Skin Exam: Dry, Warm Results - Vital Signs Recent Vital Signs: Last Vital Signs Temp 97.6 F 08/03/18 06:00 Pulse 85 08/03/18 06:00 Resp 20 08/03/18 06:00 BP 125/70 08/03/18 06:00 Pulse Ox 96 08/03/18 06:00 - Labs Result Diagrams: 08/03/18 07:00 08/03/18 07:00 Labs: Laboratory Results - last 24 hr 08/02/18 08/03/18 08/03/18 16:40 07:00 07:00 WBC 3.3 L 2.5 L D RBC 3.70 3.30 L Hgb 10.7 L 9.4 L Hct 32.2 L 28.9 L MCV 87.0 87.6 MCH 28.9 28.5 MCHC 33.2 32.5 RDW 19.3 H 19.1 H Plt Count 145 149 MPV 8.9 8.4 Gran % 57.7 Lymph % (Auto) 22.6 [place] % (Auto) 16.5 H Eos % (Auto) 2.8 Baso % (Auto) 0.4 Gran # 1.43 Lymph # (Auto) 0.6 L [place] # (Auto) 0.4 Eos # (Auto) 0.1 Baso # (Auto) 0.01 Sodium 134 Potassium 3.3 L Chloride 108 H Carbon Dioxide 25 Anion Gap 4 L BUN 16 Creatinine 0.8 Est GFR ( Amer) > 60 Est GFR (Non-Af Amer) > 60 Random Glucose 72 Calcium 7.2 L Phosphorus 1.8 L Magnesium 1.7 Total Bilirubin 0.5 AST 16 ALT 37 Alkaline Phosphatase 80 Total Protein 4.2 L Albumin 1.6 L Globulin 2.6 Albumin/Globulin Ratio 0.6 L Assessment & Plan - Assessment and Plan (Free Text) Assessment: Patient is a 77yo female with PMHx significant for HTN, DM, osteoarthritis, COPD and suspect Crohn's Disease (not currently on maintenance therapy) who presented to the hospital with altered mental status with hallucinations and delusions. Our service consulted for hematochezia. -Hematochezia -Acute CVA, recently initiated on ASA/Plavix - currently held -H/O Crohn's Disease, not on therapy -Diarrhea -Internal/external hemorrhoids Plan: -Recommend CT A/P with IV/PO contrast to evaluate ongoing diarrhea and new onset bloody stool -No episodes of hypotension noted, ischemic colitis less likely unless acute thrombus noted on imaging -Acute exacerbation of Crohn's disease is possible in setting of recent ASA/Plavix initiation which may have led to bleeding from GI tract -Scant blood noted at bedside; resumption of ASA/Plavix based on risk/benefit per primary/neurology - patient does not appear to have clinically relevant GI bleeding which would preclude resuming therapy and risk of holding may outweigh benefit -Pending CT findings, if rectosigmoid colitis identified, may benefit from flexible sigmoidoscopy - plan to be determined per findings -Symptom management, monitor CBC -Neurology following - Date & Time Date: 08/03/18 Time: 09:10 <Harper Santiago V - Last Filed: 08/03/18 23:45> Meds - Medications Medications: Current Medications Amlodipine Besylate (Norvasc) 5 mg PO DAILY [facility] Last Admin: 07/30/18 10:20 Dose: 5 mg Aspirin (Ecotrin) 325 mg PO DAILY [facility] Last Admin: 08/02/18 11:29 Dose: Not Given Atorvastatin Calcium (Lipitor) 40 mg PO DIN [facility] Last Admin: 08/03/18 18:12 Dose: 40 mg Cholecalciferol (Vitamin D) 2,000 intlu PO DAILY [facility] Last Admin: 08/03/18 09:45 Dose: 2,000 intlu Clopidogrel Bisulfate (Plavix) 75 mg PO DAILY [facility] Last Admin: 08/02/18 11:30 Dose: Not Given Sodium Chloride (Sodium Chloride 0.9%) 1,000 mls @ 100 mls/hr IV .Q10H [facility] Last Admin: 08/03/18 18:13 Dose: 100 mls/hr Insulin Human Regular (Humulin R Med) 0 units SC ACHS [facility]; Protocol Last Admin: 08/03/18 22:37 Dose: Not Given Lorazepam (Ativan) 0.25 mg PO Q6 PRN; 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 Reason: Anxiety Metoprolol Tartrate (Lopressor) 25 mg PO BID [facility] Last Admin: 07/30/18 18:45 Dose: 25 mg Pantoprazole Sodium (Protonix Ec Tab) 40 mg PO 0600 [facility] Last Admin: 08/03/18 06:27 Dose: 40 mg Quetiapine Fumarate (Seroquel) 12.5 mg PO HS [facility]; Protocol Last Admin: 08/03/18 22:53 Dose: 12.5 mg Results - Vital Signs Recent Vital Signs: Last Vital Signs Temp 98.7 F 08/03/18 17:33 Pulse 118 H 08/03/18 18:00 Resp 20 08/03/18 17:33 BP 131/82 08/03/18 17:33 Pulse Ox 96 08/03/18 06:00 - Labs Result Diagrams: 08/03/18 07:00 08/03/18 07:00 Labs: Laboratory Results - last 24 hr 08/03/18 08/03/18 07:00 07:00 WBC 2.5 L D RBC 3.30 L Hgb 9.4 L Hct 28.9 L MCV 87.6 MCH 28.5 MCHC 32.5 RDW 19.1 H Plt Count 149 MPV 8.4 Gran % 57.7 Lymph % (Auto) 22.6 [place] % (Auto) 16.5 H Eos % (Auto) 2.8 Baso % (Auto) 0.4 Gran # 1.43 Lymph # (Auto) 0.6 L [place] # (Auto) 0.4 Eos # (Auto) 0.1 Baso # (Auto) 0.01 Sodium 134 Potassium 3.3 L Chloride 108 H Carbon Dioxide 25 Anion Gap 4 L BUN 16 Creatinine 0.8 Est GFR ( Amer) > 60 Est GFR (Non-Af Amer) > 60 Random Glucose 72 Calcium 7.2 L Phosphorus 1.8 L Magnesium 1.7 Total Bilirubin 0.5 AST 16 ALT 37 Alkaline Phosphatase 80 Total Protein 4.2 L Albumin 1.6 L Globulin 2.6 Albumin/Globulin Ratio 0.6 L Attending/Attestation - Attestation I have personally seen and examined this patient.: Yes I have fully participated in the care of the patient.: Yes I have reviewed all pertinent clinical information: Yes Notes (Text): p 08/03/18 23:45
[2018-08-03] MEDS: Cholecalciferol 1,000 INTLU TAB PO SCH (09:45)
[2018-08-03] MEDS ORDERED: Barium Sulfate Susp 2.1% w/v, 2.0% w/w 450 mL Bottle PO ONE (10:58)
--- NOTE | 2018-08-03 13:32 | CP.PCM.PN ---
<David Sun - Last Filed: 08/03/18 13:45> Subjective - Date & Time of Evaluation Date of Evaluation: 08/03/18 Time of Evaluation: 07:00 - Subjective Subjective: David Sun, PGY1 Medicine Progress Note for Dr. Quevedo Patient seen and examined at bedside this morning. Patient was AAOx3 this morning. She still shows signs of aphasia as it takes longer for her to concentrate/speak. Daughter was not present at bedside today. She did not display any thoughts or attempts of suicide. 1:1 nurse was present at bedside. GI was consulted yesterday since patient had a bloody bowel movement. No further episodes this morning. Patient denied fever, chills, n/v/d, cp, sob. A full 12 point ROS was conducted and unremarkable except as stated above. Objective - Vital Signs/Intake and Output Vital Signs (last 24 hours): Temp Pulse Resp BP Pulse Ox 98 F 84 18 129/77 96 08/03/18 12:00 08/03/18 12:00 08/03/18 12:00 08/03/18 12:00 08/03/18 06:00 Intake and Output: 08/03/18 08/03/18 06:59 18:59 Intake Total 1320 Output Total 3 Balance 1317 - Medications Medications: Current Medications Amlodipine Besylate (Norvasc) 5 mg PO DAILY [facility] Last Admin: 07/30/18 10:20 Dose: 5 mg Aspirin (Ecotrin) 325 mg PO DAILY [facility] Last Admin: 08/02/18 11:29 Dose: Not Given Atorvastatin Calcium (Lipitor) 40 mg PO DIN [facility] Last Admin: 08/02/18 18:16 Dose: 40 mg Cholecalciferol (Vitamin D) 2,000 intlu PO DAILY [facility] Last Admin: 08/03/18 09:45 Dose: 2,000 intlu Clopidogrel Bisulfate (Plavix) 75 mg PO DAILY [facility] Last Admin: 08/02/18 11:30 Dose: Not Given Sodium Chloride (Sodium Chloride 0.9%) 1,000 mls @ 100 mls/hr IV .Q10H [facility] Last Admin: 08/03/18 12:03 Dose: Not Given Insulin Human Regular (Humulin R Med) 0 units SC ACHS [facility]; Protocol Last Admin: 08/03/18 12:11 Dose: 1 unit Lorazepam (Ativan) 0.25 mg PO Q6 PRN; 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 Reason: Anxiety Metoprolol Tartrate (Lopressor) 25 mg PO BID [facility] Last Admin: 07/30/18 18:45 Dose: 25 mg Pantoprazole Sodium (Protonix Ec Tab) 40 mg PO 0600 [facility] Last Admin: 08/03/18 06:27 Dose: 40 mg Quetiapine Fumarate (Seroquel) 12.5 mg PO HS [facility]; Protocol - Labs Labs: 08/03/18 07:00 08/03/18 07:00 PT 12.6 SECONDS (9.4-12.5) H 08/01/18 05:30 INR 1.09 08/01/18 05:30 APTT 36.0 Seconds (25.1-36.5) 08/01/18 05:30 - Constitutional Appears: No Acute Distress - Head Exam Head Exam: ATRAUMATIC, NORMAL INSPECTION, NORMOCEPHALIC - Eye Exam Eye Exam: EOMI, Normal appearance, PERRL - ENT Exam ENT Exam: Mucous Membranes Moist, Normal Exam - Neck Exam Neck Exam: Full ROM, Normal Inspection. absent: Lymphadenopathy - Respiratory Exam Respiratory Exam: Clear to Ausculation Bilateral, NORMAL BREATHING PATTERN. absent: Rales, Rhonchi, Wheezes - Cardiovascular Exam Cardiovascular Exam: REGULAR RHYTHM, +S1, +S2. absent: Murmur - GI/Abdominal Exam GI & Abdominal Exam: Soft, Normal Bowel Sounds. absent: Guarding, Rigid, Tenderness - Extremities Exam Extremities Exam: Full ROM, Normal Capillary Refill, Normal Inspection. absent: Joint Swelling, Pedal Edema - Neurological Exam Neurological Exam: Alert, Awake, Oriented x3 - Psychiatric Exam Psychiatric exam: Normal Affect - Skin Skin Exam: Dry, Intact, Normal Color, Warm Assessment and Plan - Assessment and Plan (Free Text) Assessment: Patient is a 77 y/o F with PMH of HTN, DM2, OA, and COPD who presented to ED with family for AMS, delusions, and hallucinations x3 weeks in duration. Patient was admitted to the floor for Delirium 2/2 new watershed stroke. Patient is a candidate for TCU but also had suicidal intent during hospital course, subsequently placed on 1:1 precautions. Plan: Delirium 2/2 New Watershed Stroke - Improved mental status today; AAOx3 and responsive to questions - PT recommends acute rehab - PT/OT - Brain MRI: multiple small cortical and subcortical infarcts in both hemispheres (R>L). Infarcts could be due to hypotensive watershed infarct. - Head/Neck CTA: negative - Echo: EF 62%. Mod-severe aortic regurgitation. Mild pulmonary HTN. - Blood pressure meds and blood thinners (DVT/PE ppx) held at this time - Neuro recs appreciated - Psychiatry consulted. Appreciated recs. Suicidal intent - placed on 1:1 precaution - c/w 1:1 precautions at this time - Psych recommends c/w seroquel 12.5 mg PO HS prn with frequent reorientation to improve her condition. - f/u psych recommends today - patient verbalized intent and wanted to use plastic knife to hurt herself (08/02) - d/w patient's daughter (Clark) at great length in regards to incident Episode of Bloody Diarrhea with electrolyte abnormalities - As per GI: recommend CT A/P with IV/PO contrast to evaluate for new onset bloody stools. Patient does not appear to have clinically relevant GI bleed, c/w symptomatic management. - f/u CT A/P - ASA/Plavix held at this time - Patient had an episode of bloody bowel movement as per nursing staff - GI consulted. - GI consulted, recs appreciated. - C. diff negative - replete mag, phos, and potassium as needed NSTEMI - elevated troponins 2/2 stroke - No cath at this time. Continue with medical management. - Cardio recommended Lipitor 20mg, c/w ASA 325mg, Lopressor 25mg BID, and Plavix 75mg. No heparin gtt at this time. - trops 0.18 on admission, repeat trops were .14 -- secondary to stroke Hx of HTN - BP meds held at this time due to new stroke - Home meds are Lopressor 25mg BID and norvasc 5mg daily Hx of DM II - avoid hypoglycemia - ISS DVT ppx: SCDs GI ppx: PTX Dispo: Patient will be monitored on telemetry. Patient is a candidate for acute rehab on Saturday. Placed on 1:1 precaution for suicidal intent, needs f/u psych evaluation. Case was discussed and reviewed with Attending Physician, Dr. Quevedo. <Milagros Quevedo - Last Filed: 08/03/18 15:16> Objective - Vital Signs/Intake and Output Vital Signs (last 24 hours): Temp Pulse Resp BP Pulse Ox 98 F 84 18 129/77 96 08/03/18 12:00 08/03/18 12:00 08/03/18 12:00 08/03/18 12:00 08/03/18 06:00 Intake and Output: 08/03/18 08/03/18 06:59 18:59 Intake Total 1320 Output Total 3 Balance 1317 - Medications Medications: Current Medications Amlodipine Besylate (Norvasc) 5 mg PO DAILY [facility] Last Admin: 07/30/18 10:20 Dose: 5 mg Aspirin (Ecotrin) 325 mg PO DAILY [facility] Last Admin: 08/02/18 11:29 Dose: Not Given Atorvastatin Calcium (Lipitor) 40 mg PO DIN [facility] Last Admin: 08/02/18 18:16 Dose: 40 mg Cholecalciferol (Vitamin D) 2,000 intlu PO DAILY [facility] Last Admin: 08/03/18 09:45 Dose: 2,000 intlu Clopidogrel Bisulfate (Plavix) 75 mg PO DAILY [facility] Last Admin: 08/02/18 11:30 Dose: Not Given Sodium Chloride (Sodium Chloride 0.9%) 1,000 mls @ 100 mls/hr IV .Q10H [facility] Last Admin: 08/03/18 12:03 Dose: Not Given Insulin Human Regular (Humulin R Med) 0 units SC ACHS [facility]; Protocol Last Admin: 08/03/18 12:11 Dose: 1 unit Lorazepam (Ativan) 0.25 mg PO Q6 PRN; 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 Reason: Anxiety Metoprolol Tartrate (Lopressor) 25 mg PO BID [facility] Last Admin: 07/30/18 18:45 Dose: 25 mg Pantoprazole Sodium (Protonix Ec Tab) 40 mg PO 0600 [facility] Last Admin: 08/03/18 06:27 Dose: 40 mg Quetiapine Fumarate (Seroquel) 12.5 mg PO HS [facility]; Protocol - Labs Labs: 08/03/18 07:00 08/03/18 07:00 PT 12.6 SECONDS (9.4-12.5) H 08/01/18 05:30 INR 1.09 08/01/18 05:30 APTT 36.0 Seconds (25.1-36.5) 08/01/18 05:30 Attending/Attestation - Attestation I have personally seen and examined this patient.: Yes I have fully participated in the care of the patient.: Yes I have reviewed all pertinent clinical information, including history, physical exam and plan: Yes Notes (Text): 08/03/18 14:38 77 year old female with past medical history of diabetes, hypertension and COPD who presented with altered mental status with delusions and hallucinations as per family. CT head showed chronic microvascular ischemic disease and moderate volume loss. CTA head/neck was negative. EEG was done with pending read. MRI brain showed multiple small cortical / subcortical infarcts in both hemispheres, right greater than left. Patient also was found to have possible NSTEMI. She was started on aspirin, plavix and statin. Metoprolol was held due to watershed infarcts. Cardiology, neurology and psychiatry are following. Yesterday she was noted to have blood in her stoo. Aspirin and plavix were held. GI evaluation was requested to ordered CT abd/pelvis. Consider resuming if no further episodes of bleed and h/h is stable per GI/cardiology. Yesterday she also had incident of suicide attempt with plastic knife while eating breakfast. 1:1 observation was ordered and psychiatry follow up was requested. Will replete and repeat lytes (potassium). Milagros Quevedo MD Hospitalist.
--- NOTE | 2018-08-03 16:08 | PN ---
DATE: 08/03/2018 SUBJECTIVE: The patient is one-to-one watch. She denies any chest pain. She is eating her lunch now. PHYSICAL EXAMINATION: VITAL SIGNS: Blood pressure 125/70, heart rate 85, temperature 97.6, respirations 20. HEENT: Pale conjunctivae. CHEST: Minimal rhonchi. HEART: S1 and S2 regular. EXTREMITIES: No edema. LABORATORY DATA: Hemoglobin and hematocrit are 9.2 and 28.9, white count 2.5, platelet count 149,000. SMA-7: Sodium 134, potassium 3.3, chloride 108, CO2 of 25, glucose 72, BUN 16, creatinine 0.8, calcium is 7.2, phosphorus 1.8, magnesium 1.7. ASSESSMENT: 1. Bilateral cortical and subcortical cerebral infarcts. 2. Borderline troponin elevation. 3. Hypokalemia, hypocalcemia and hypomagnesemia. 4. Suicidal attempt. RECOMMENDATIONS: Continue Lipitor 40 mg once a day, Lopressor 25 mg twice a day. The patient did receive 40 mEq of K-Dur replacement. Girish Goss MD
--- NOTE | 2018-08-03 16:50 | CT ---
Date of service: 08/03/2018 PROCEDURE: CT Abdomen and Pelvis with contrast HISTORY: hematochezia, ? h/o rectosigmoid crohn's colitis COMPARISON: 12/26/2017. TECHNIQUE: CT scan of the abdomen and pelvis was performed without administration of intravenous contrast. Oral contrast was administered. Coronal and sagittal reformatted images were obtained. Radiation dose: Total exam DLP = 991.04 mGy-cm. This CT exam was performed using one or more of the following dose reduction techniques: Automated exposure control, adjustment of the mA and/or kV according to patient size, and/or use of iterative reconstruction technique. FINDINGS: LOWER THORAX: There are moderate bilateral pleural effusions. LIVER: Normal in size. No gross lesion or ductal dilatation. GALLBLADDER AND BILE DUCTS: Well distended. No calcified gallstones, wall thickening or pericholecystic fluid. PANCREAS: Mild fatty atrophy of the pancreas. No gross lesion or ductal dilatation. SPLEEN: Normal in size and appearance. ADRENALS: No discrete nodule. KIDNEYS AND URETERS: Normal in size. No hydronephrosis. 8 mm high attenuation lesion in the upper pole of the left kidney likely a hemorrhagic cyst. VASCULATURE: No aortic aneurysm. BOWEL: There is reflux of contrast in the distal esophagus. There is segmental mild circumferential mural thickening in the proximal small bowel loops. The mid and distal small bowel loops are normal in caliber without wall thickening. The ascending transverse and proximal descending colon appear normal in caliber without wall thickening. There is apparent circumferential mural thickening in the mid and distal descending and sigmoid colon. APPENDIX: Not visualized however no inflammatory changes in the right lower quadrant. PERITONEUM: Small abdominal and pelvic ascites. No free air. LYMPH NODES: No enlarged lymph nodes. BLADDER: Well distended and normal in appearance. REPRODUCTIVE: The uterus is normal in size. BONES: No acute fracture. There is diffuse bone demineralization and multilevel degenerative changes in the spine. OTHER FINDINGS: There is severe anasarca. There is a midline fat containing umbilical hernia. IMPRESSION: 1. Segmental circumferential mural thickening in the proximal small bowel and apparent segmental circumferential mural thickening in the mid and distal descending colon and sigmoid colon, nonspecific and could be related to underdistention however acute infectious/inflammatory enteritis and colitis are also differential considerations. Clinical correlation and follow-up is advised. 2. Moderate pleural effusions, small abdominal and pelvic ascites and severe diffuse anasarca.
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
--- NOTE | 2018-08-03 18:02 | CARD ---
APPROVED REPORT Date of service: 08/03/2018 EKG Measurement Heart [id number] <Conclusion> Sinus tachycardia with premature atrial complexes Incomplete right bundle branch block ST & Marked T wave abnormality, consider anterior ischemia Abnormal ECG
[2018-08-04] MEDS: Pantoprazole 40 mg EC Tab PO SCH (05:50)
[2018-08-04] MEDS: Sodium Chloride 0.9% 1,000 ML IV SCH ×3 (06:03→19:59)
[2018-08-04 08:03] LABS: GRAN # 1.26 (1.4-6.5); GRAN % 72.5 % (50.0-68.0); HEMOGLOBIN 9.3 g/dL (12.0-16.0); LYMPH # 0.3 (1.2-3.4); LYMPH % 14.9 % (22.0-35.0); MEAN CELL VOLUME 87.7 fl (80.0-105.0); MEAN CORPUSCULAR HEMOGLOBIN 29.2 pg (25.0-35.0); MEAN CORPUSCULAR HGB CONC 33.3 g/dl (31.0-37.0); MEAN PLATELET VOLUME 7.8 fl (7.0-11.0); MONO # 0.2 (0.1-0.6); MONO % 12.6 % (1.0-6.0); PLATELET COUNT 120 10^3/uL (120.0-450.0); RBC 3.18 10^6/uL (3.5-6.1); RED CELL DISTRIBUTION WIDTH 19.2 % (11.5-14.5)
[2018-08-04 08:14] LABS: WHITE BLOOD COUNT 1.7 10^3/uL (4.5-11.0)
[2018-08-04 08:17] LABS: ALB/GLOB RATIO 0.6 (1.1-1.8); ALBUMIN 1.5 g/dL (3.0-4.8); ALT/SGPT 36 U/L (7-56); AST/SGOT 18 U/L (14-36); BLOOD UREA NITROGEN 15 mg/dL (7-21); CALCIUM 7.2 mg/dL (8.4-10.5); GFR NON-AFRICAN AMERICAN > 60
[2018-08-04 08:44] LABS: BAND 3 % (0-2); LYMPHOCYTE 9 % (22.0-35.0); MONOCYTE 7 % (1.0-6.0); NEUTROPHIL 81 % (50.0-70.0)
[2018-08-04 08:45] LABS: PLATELET ESTIMATE LOW (NORMAL)
[2018-08-04] MEDS ORDERED: Potassium & Sodium Phosphate PO ONE (08:45)
[2018-08-04] MEDS: Insulin Reg-MEDIUM-Coverage SC SCH ×4 (10:40→21:20)
[2018-08-04] MEDS: Cholecalciferol 1,000 INTLU TAB PO SCH (10:40)
--- NOTE | 2018-08-04 12:02 | PN ---
DATE: 08/04/2018 SUBJECTIVE: The patient is chest pain free. PHYSICAL EXAMINATION: VITAL SIGNS: On physical exam, blood pressure varies from 99-138 systolic, heart rate approximately 100. NECK: Negative JVD. LUNGS: Without rales. HEART: S1, S2. EXTREMITIES: Without edema. LABORATORY DATA: White count is down to 1.7 although may be error, hemoglobin is 9.3. Chemistries, BUN and creatinine are unremarkable. IMPRESSION 1. Non-ST elevation myocardial infarction. 2. Coronary artery disease. 3. Cerebrovascular accident. 4. Altered mental status. Given these findings, the patient's non-ST elevation myocardial infarction is being treated with beta blockers and aspirin which she is currently on hold for now. We will discontinue her Plavix. Tello Talbert MD
--- NOTE | 2018-08-04 12:37 | PN ---
DATE: 08/04/2018 FOLLOWUP NOTE SUBJECTIVE: In short, the patient is a 77-year-old female with not known previous psychiatric history. The patient was admitted on the medical side for evaluation of altered mental status, delusion, confusion and disorientation. The patient also had CVA. Please see admission note for more detailed information as well as consultation note for more detailed information. Psychiatry team was involved because the patient was feeling that her daughter is imposter and the patient was feeling that her daughter is not her true daughter. This marketing writer evaluated the patient on last week. Dr. Prakash was following on the patient over the weekend and this marketing writer takes over. The patient was seen and examined. The patient was sleeping during the interview. No agitation or aggression. Dr. Prakash's notes reviewed. The patient was still paranoid and delusional, but I would repeat the patient is not agitated or aggressive. The patient's daughter brought legal documents confirming that her daughter is power of technical service engineer for this patient. As per Dr. Prakash, dose of Seroquel was given to the patient 12.5 mg at the nighttime and this marketing writer educated family as well as the patient on the last week about risks, benefits and alternatives of that medication. The patient's daughter agreed with that medication to be given to her mother. PHYSICAL EXAMINATION VITAL SIGNS: Reviewed. Temperature 98.8, pulse is 108, blood pressure 99/53, respirations 18, oxygen saturation is 94. MEDICATIONS: Reviewed. Norvasc, aspirin, Lipitor, vitamin D, Plavix, Humulin, Ativan was added by Dr. Prakash for mood stabilization. The patient is on Lopressor, Protonix, Seroquel 12.5 mg at the nighttime scheduled, last dose was given yesterday, as well as sodium chloride. LABORATORY DATA: Reviewed. WBC cells 1.7, hemoglobin and hematocrit 9.3 and 27.9. Coagulation reviewed. Chemistry reviewed. Urinalysis reviewed. Leukocyte esterase small. Toxicology reviewed. As per nurse, the patient does not have any aggression or agitation, at times resistant to take medications. MENTAL STATUS EXAMINATION: The patient is deeply sleeping, was not able to wake up the patient. The patient is sleeping, in no acute distress. Discussed with the nursing and one-to-one as well. IMPRESSION: The patient is obviously on delirium stage due to multiple medical issues. As per Medical team, delirium secondary to the new watershed stroke, electrolyte abnormalities, and STEMI elevated secondary to the stroke. The patient has history of hypertension and diabetes. PLAN: Continue current management. Continue current medications, smallest possible dose of antipsychotic medication at the nighttime. Reassurance. We will follow up every other day. There are no acute psychiatric issues in regards of delusions and paranoia. It is related to delirium. The patient is currently on one-to-one. Treatment plan should be discussed with the patient's power of technical service engineer. Legal documents in the chart. Should you have any questions, give me a call back. Thank you very much for letting me participate in care of your patient. Please be advised that delirium takes a while to clear up, especially in elderly population. Should you have any questions, give me a call back. Maria Eugenia Jiang MD
[2018-08-04] MEDS ORDERED: Sodium Chloride 0.9% 250 ML IV STA (13:46)
[2018-08-04] MEDS ORDERED: cefTRIAXone 1 gm 1 GM/100 ML BAG IVPB SCH (14:30)
--- NOTE | 2018-08-04 14:34 | CP.PCM.PN ---
<Teresa Lock - Last Filed: 08/04/18 14:23> Subjective - Date & Time of Evaluation Date of Evaluation: 08/04/18 Time of Evaluation: 14:25 - Subjective Subjective: Gastroenterology Fellow/PGY6 Progress Note Patient oriented to self and place. Remains on 1:1. Patient denies abdominal pain. Nursing notes one soft brown stool overnight without melena or hematochezia. A 12-point review of systems limited in setting of delirium. Objective - Vital Signs/Intake and Output Vital Signs (last 24 hours): Temp Pulse Resp BP Pulse Ox 99.5 F 101 H 20 114/70 94 L 08/04/18 14:04 08/04/18 12:00 08/04/18 12:00 08/04/18 12:00 08/04/18 06:00 Intake and Output: 08/04/18 08/04/18 06:59 18:59 Intake Total 1320 Output Total 700 Balance 620 - Medications Medications: Current Medications Acetaminophen (Tylenol 325mg Tab) 650 mg PO Q6H PRN PRN Reason: Fever >100.4 F Last Admin: 08/04/18 14:04 Dose: 650 mg Amlodipine Besylate (Norvasc) 5 mg PO DAILY [facility] Last Admin: 07/30/18 10:20 Dose: 5 mg Aspirin (Ecotrin) 325 mg PO DAILY [facility] Last Admin: 08/02/18 11:29 Dose: Not Given Atorvastatin Calcium (Lipitor) 40 mg PO DIN [facility] Last Admin: 08/03/18 18:12 Dose: 40 mg Cholecalciferol (Vitamin D) 2,000 intlu PO DAILY [facility] Last Admin: 08/04/18 10:40 Dose: 2,000 intlu Insulin Human Regular (Humulin R Med) 0 units SC [facility]; Protocol Last Admin: 08/04/18 13:38 Dose: Not Given Lorazepam (Ativan) 0.25 mg PO Q6 PRN; 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 Reason: Anxiety Metoprolol Tartrate (Lopressor) 25 mg PO BID [facility] Last Admin: 07/30/18 18:45 Dose: 25 mg Metoprolol Tartrate (Lopressor) 6.25 mg PO STAT [facility] Stop: 08/04/18 14:22 Ondansetron HCl (Zofran Inj) 4 mg IVP Q4H PRN PRN Reason: Nausea/Vomiting Last Admin: 08/04/18 13:13 Dose: 4 mg Pantoprazole Sodium (Protonix Ec Tab) 40 mg PO 0600 [facility] Last Admin: 08/04/18 05:50 Dose: 40 mg Quetiapine Fumarate (Seroquel) 12.5 mg PO HS PRN; 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 Reason: Agitation - Labs Labs: 08/04/18 07:50 08/04/18 07:50 PT 12.6 SECONDS (9.4-12.5) H 08/01/18 05:30 INR 1.09 08/01/18 05:30 APTT 36.0 Seconds (25.1-36.5) 08/01/18 05:30 - Constitutional Appears: Non-toxic, No Acute Distress - Head Exam Head Exam: ATRAUMATIC, NORMOCEPHALIC - Eye Exam Eye Exam: EOMI, PERRL. absent: Scleral icterus Pupil Exam: PERRL. absent: Miosis, Mydriatic - ENT Exam ENT Exam: Mucous Membranes Moist, Normal Oropharynx - Neck Exam Neck Exam: Full ROM, Normal Inspection - Respiratory Exam Respiratory Exam: Clear to Ausculation Bilateral. absent: Rales, Rhonchi, Wheezes - Cardiovascular Exam Cardiovascular Exam: RRR, +S1, +S2. absent: Gallop, Rubs - GI/Abdominal Exam GI & Abdominal Exam: Soft, Normal Bowel Sounds. absent: Distended, Firm, Guarding, Rigid, Tenderness, Organomegaly, Rebound - Extremities Exam Extremities Exam: Normal Inspection - Neurological Exam Neurological Exam: Alert, Awake. absent: Oriented x3 - Psychiatric Exam Psychiatric exam: Normal Affect, Normal Mood - Skin Skin Exam: Dry, Intact, Normal Color, Warm Assessment and Plan - Assessment and Plan (Free Text) Assessment: 77yo female with PMHx significant for HTN, DM, osteoarthritis, COPD and suspected Crohn's Disease 2014 (not currently on maintenance therapy) presenting with altered mental status. Active treatment of bilateral ischemic CVAs started on ASA with Plavix held 2/2 concern for diarrhea with hematochezia. 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 Plan: -DDx-IBD, ischemic, infectious -CT A/P PO- thickening of small bowel, descending, recto-sigmoid colon -ordered CT A/P angiography to evaluate for ischemic colitis -started ceftriaxone and flagyl -Cdiff negative -B/L watershed CVA and NSTEMI- on ASA 325mg, Plavix held -H/H stable -no sign of acute GI bleed -soft brown stool Saturday and Saturday (08/03, 08/04) -follow up cardiology and neurology recommendation on risk vs benefit of dual anti-platelet therapy -if no signs of clinical improvement, may require flexible sigmoidoscopy for further evaluation -may consider Rowasa/steroid induction for possible IBD flare if CTA rules out ischemic colitis and confirm negative infectious stool workup -will require colonoscopy for surveillance of prior active recto-sigmoid colitis on colonoscopy in 2015 -will follow clinical course <Harper Santiago V - Last Filed: 08/05/18 00:42> Objective - Vital Signs/Intake and Output Vital Signs (last 24 hours): Temp Pulse Resp BP Pulse Ox 97.5 F L 66 19 96/51 L 95 08/04/18 23:15 08/04/18 23:15 08/04/18 23:15 08/04/18 18:00 08/04/18 23:15 - Medications Medications: Current Medications Acetaminophen (Tylenol 325mg Tab) 650 mg PO Q6H PRN PRN Reason: Fever >100.4 F Last Admin: 08/04/18 14:04 Dose: 650 mg Amlodipine Besylate (Norvasc) 5 mg PO DAILY [facility] Last Admin: 07/30/18 10:20 Dose: 5 mg Aspirin (Ecotrin) 325 mg PO DAILY [facility] Last Admin: 08/02/18 11:29 Dose: Not Given Atorvastatin Calcium (Lipitor) 40 mg PO DIN [facility] Last Admin: 08/04/18 17:56 Dose: 40 mg Cholecalciferol (Vitamin D) 2,000 intlu PO DAILY [facility] Last Admin: 08/04/18 10:40 Dose: 2,000 intlu Metronidazole (Flagyl) 500 mg in 100 mls @ 100 mls/hr IVPB Q8 [facility]; Protocol Last Admin: 08/04/18 20:59 Dose: 100 mls/hr Insulin Human Regular (Humulin R Med) 0 units SC ACHS [facility]; Protocol Last Admin: 08/04/18 21:20 Dose: Not Given Lorazepam (Ativan) 0.25 mg PO Q6 PRN; 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 Reason: Anxiety Metoprolol Tartrate (Lopressor) 25 mg PO BID [facility] Last Admin: 07/30/18 18:45 Dose: 25 mg Ondansetron HCl (Zofran Inj) 4 mg IVP Q4H PRN PRN Reason: Nausea/Vomiting Last Admin: 08/04/18 13:13 Dose: 4 mg Pantoprazole Sodium (Protonix Ec Tab) 40 mg PO 0600 [facility] Last Admin: 08/04/18 05:50 Dose: 40 mg Quetiapine Fumarate (Seroquel) 12.5 mg PO HS PRN; 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 Reason: Agitation - Labs Labs: 08/04/18 07:50 08/04/18 07:50 PT 12.6 SECONDS (9.4-12.5) H 08/01/18 05:30 INR 1.09 08/01/18 05:30 APTT 36.0 Seconds (25.1-36.5) 08/01/18 05:30 Attending/Attestation - Attestation I have personally seen and examined this patient.: Yes I have fully participated in the care of the patient.: Yes I have reviewed all pertinent clinical information, including history, physical exam and plan: Yes Notes (Text): This is an addendum to GI progress report dictated by the GI Fellow.The patient was seen and examined earlier. Medical records, lab studies, imagings were reviewed. Last 24 hours events reviewed. Agreed with the above treatment plan as outlined in GI Fellow 's notes with the addition of the following CT scan was reviewed Hb stable WBC count has decreased to 1.7 Clinically more suggestive of crohn's disease Patient's previous colonoscopy was reviewed History of anal fissure Patchy involvement of the colon and small bowl Is in more favor of inflammatory bowl disease probably crohn's Would cancel CT A Will start the patient on mesalamine Will add rowasa enema Stool for C.diff negative Patient can be started on anti-platelet therapy/ anticoagulation if needed with close followup of hb 08/05/18 00:41
[2018-08-04] MEDS: metroNIDAZOLE IV 500 mg/100 ml 500 MG/100 ML BAG IVPB SCH ×2 (15:22→20:59)
--- NOTE | 2018-08-04 15:23 | CP.PCM.PCO ---
Physician Communication Note - Physician Communication Note Physician Communication Note: Pt's WBC was 1.7, Gran #1.26 08/04/18, seroquel was given only once, will r Addendum Addendum: 08/04/18 15:20 Pt's WBC was 1.7, Gran #1.26 08/04/18, seroquel was given only once, it is unli wes that WBC and Gran# low because of the one dose of seroquel, will change seroquel PRN and will repeat CBC with differential tomorrow am. will d/c 1:1 tomorrow am and will observe today pt is not in any acute distress no objection for acute rehab transfer discussed with and residents
--- NOTE | 2018-08-04 17:34 | CP.PCM.PN ---
Subjective - Date & Time of Evaluation Date of Evaluation: 08/04/18 Time of Evaluation: 16:00 - Subjective Subjective: Walter Tijerina- Internal Medicine Resident- Consult Note on Behalf of Neurology Team Subjective: Patient seen and examined at bedside. No acute events overnight. Patient is more awake and alert. Offers no new complaints at this time. Follows commands. Denies weakness, dizziness, numbness, and focal deficits. 12 point ROS negative except as indicated in the HPI Physical Examination: - Constitutional Appears: Well, Non-toxic, No Acute Distress - Head Exam Head Exam: ATRAUMATIC, NORMAL INSPECTION, NORMOCEPHALIC - Eye Exam Eye Exam: EOMI, Normal appearance - ENT Exam ENT Exam: Mucous Membranes Moist, Normal Exam, No tongue laceration - Neck Exam Neck exam: Positive for: Full Rom, Normal Inspection - Respiratory Exam Respiratory Exam: Clear to Auscultation Bilateral, NORMAL BREATHING PATTERN. absent: Accessory Muscle Use, Rales, Rhonchi, Wheezes, Respiratory Distress - Cardiovascular Exam Cardiovascular Exam: REGULAR RHYTHM, +S1, +S2 - GI/Abdominal Exam GI & Abdominal Exam: Normal Bowel Sounds, Soft. absent: Distended, Firm, Guarding, Rebound, Rigid, Tenderness - Extremities Exam Extremities exam: Positive for: full ROM, normal capillary refill, normal inspection, pedal pulses present - Neurological Exam Neurological exam: awake, alert, orientated x [address], responds to verbal stimuli, answers questions appropriately, follows commands, moves extremities past midline, can draw clock, no neglect noted - Skin Skin Exam: Intact, Normal Color, Warm Assessment and Plan: Patient is a 77 year old female with a past medical history of HTN, DM2, and OA who was admitted for evaluation and treatment of altered mental status and hallucinations/delusions. Neurology was consulted for management of altered m ental status. Altered Mental Status -07/28/[address] without contrast- Moderate volume loss and chronic microvascular ischemic disease. No evidence of acute intracranial hemorrhage mass effect or midline shift. - 07/29/2018 Brain MRI with and without contrast- multiple small cortical and subcortical infarcts in both hemispheres right greater than left - 07/30/2018 CTA head and neck- No evidence of stenosis or occlusion, Unremarkable CT Angiography of the Brain. - 07/2018 Echocardiogram- LVEF 63%, moderate to severe aortic regurg - continue with physical therapy, occupation therapy, and speech therapy - EEG ordered and pending - PATRICK with bubble study ordered and pending Patient case discussed with and plan approved by attending physician, Dr. Morales. Objective - Vital Signs/Intake and Output Vital Signs (last 24 hours): Temp Pulse Resp BP Pulse Ox 99.5 F 115 H 20 114/70 94 L 08/04/18 14:04 08/04/18 15:20 08/04/18 12:00 08/04/18 15:20 08/04/18 06:00 Intake and Output: 08/04/18 08/04/18 06:59 18:59 Intake Total 1320 Output Total 700 Balance 620 - Medications Medications: Current Medications Acetaminophen (Tylenol 325mg Tab) 650 mg PO Q6H PRN PRN Reason: Fever >100.4 F Last Admin: 08/04/18 14:04 Dose: 650 mg Amlodipine Besylate (Norvasc) 5 mg PO DAILY [facility] Last Admin: 07/30/18 10:20 Dose: 5 mg Aspirin (Ecotrin) 325 mg PO DAILY [facility] Last Admin: 08/02/18 11:29 Dose: Not Given Atorvastatin Calcium (Lipitor) 40 mg PO DIN [facility] Last Admin: 08/03/18 18:12 Dose: 40 mg Cholecalciferol (Vitamin D) 2,000 intlu PO DAILY [facility] Last Admin: 08/04/18 10:40 Dose: 2,000 intlu Metronidazole (Flagyl) 500 mg in 100 mls @ 100 mls/hr IVPB Q8 [facility]; Protocol Last Admin: 08/04/18 15:22 Dose: 100 mls/hr Ciprofloxacin (Cipro 400mg/200ml Dsw) 400 mg in 200 mls @ 133.3 mls/hr IVPB Q12 [facility]; Protocol Stop: 08/04/18 23:31 Insulin Human Regular (Humulin R Med) 0 units SC ACHS [facility]; Protocol Last Admin: 08/04/18 13:38 Dose: Not Given Lorazepam (Ativan) 0.25 mg PO Q6 PRN; 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 Reason: Anxiety Metoprolol Tartrate (Lopressor) 25 mg PO BID [facility] Last Admin: 07/30/18 18:45 Dose: 25 mg Ondansetron HCl (Zofran Inj) 4 mg IVP Q4H PRN PRN Reason: Nausea/Vomiting Last Admin: 08/04/18 13:13 Dose: 4 mg Pantoprazole Sodium (Protonix Ec Tab) 40 mg PO 0600 [facility] Last Admin: 08/04/18 05:50 Dose: 40 mg Quetiapine Fumarate (Seroquel) 12.5 mg PO HS PRN; 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 Reason: Agitation - Labs Labs: 08/04/18 07:50 08/04/18 07:50 PT 12.6 SECONDS (9.4-12.5) H 08/01/18 05:30 INR 1.09 08/01/18 05:30 APTT 36.0 Seconds (25.1-36.5) 08/01/18 05:30
--- NOTE | 2018-08-04 18:28 | CP.PCM.PN ---
<David Sun - Last Filed: 08/04/18 18:23> Subjective - Date & Time of Evaluation Date of Evaluation: 08/04/18 Time of Evaluation: 07:00 - Subjective Subjective: David Sun PGY1 Medicine Progress Note for Dr. Quevedo Patient was seen and examined at bedside this morning. Spoke to nursing staff. Last bowel movement was at 6 am. She is AAOx2 to person and place. Denies cp, sob, lightheadedness, dizziness. No acute overnight events. 1:1 nurse was present at bedside. As per nurse, patient has some urinary retention. A full 12 point ROS was conducted and unremarkable except as stated above. Objective - Vital Signs/Intake and Output Vital Signs (last 24 hours): Temp Pulse Resp BP Pulse Ox 98.7 F 74 18 96/51 L 94 L 08/04/18 18:00 08/04/18 18:00 08/04/18 18:00 08/04/18 18:00 08/04/18 06:00 Intake and Output: 08/04/18 08/04/18 06:59 18:59 Intake Total 1320 Output Total 700 Balance 620 - Medications Medications: Current Medications Acetaminophen (Tylenol 325mg Tab) 650 mg PO Q6H PRN PRN Reason: Fever >100.4 F Last Admin: 08/04/18 14:04 Dose: 650 mg Amlodipine Besylate (Norvasc) 5 mg PO DAILY [facility] Last Admin: 07/30/18 10:20 Dose: 5 mg Aspirin (Ecotrin) 325 mg PO DAILY [facility] Last Admin: 08/02/18 11:29 Dose: Not Given Atorvastatin Calcium (Lipitor) 40 mg PO DIN [facility] Last Admin: 08/04/18 17:56 Dose: 40 mg Cholecalciferol (Vitamin D) 2,000 intlu PO DAILY [facility] Last Admin: 08/04/18 10:40 Dose: 2,000 intlu Metronidazole (Flagyl) 500 mg in 100 mls @ 100 mls/hr IVPB Q8 [facility]; Protocol Last Admin: 08/04/18 15:22 Dose: 100 mls/hr Ciprofloxacin (Cipro 400mg/200ml Dsw) 400 mg in 200 mls @ 133.3 mls/hr IVPB Q12 [facility]; Protocol Stop: 08/04/18 23:31 Insulin Human Regular (Humulin R Med) 0 units SC ACHS [facility]; Protocol Last Admin: 08/04/18 17:55 Dose: 5 unit Lorazepam (Ativan) 0.25 mg PO Q6 PRN; 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 Reason: Anxiety Metoprolol Tartrate (Lopressor) 25 mg PO BID [facility] Last Admin: 07/30/18 18:45 Dose: 25 mg Ondansetron HCl (Zofran Inj) 4 mg IVP Q4H PRN PRN Reason: Nausea/Vomiting Last Admin: 08/04/18 13:13 Dose: 4 mg Pantoprazole Sodium (Protonix Ec Tab) 40 mg PO 0600 [facility] Last Admin: 08/04/18 05:50 Dose: 40 mg Quetiapine Fumarate (Seroquel) 12.5 mg PO HS PRN; 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 Reason: Agitation - Labs Labs: 08/04/18 07:50 08/04/18 07:50 PT 12.6 SECONDS (9.4-12.5) H 08/01/18 05:30 INR 1.09 08/01/18 05:30 APTT 36.0 Seconds (25.1-36.5) 08/01/18 05:30 - Constitutional Appears: No Acute Distress - Head Exam Head Exam: ATRAUMATIC, NORMAL INSPECTION, NORMOCEPHALIC - Eye Exam Eye Exam: EOMI, Normal appearance, PERRL - ENT Exam ENT Exam: Mucous Membranes Moist, Normal Exam - Neck Exam Neck Exam: Full ROM, Normal Inspection. absent: Lymphadenopathy - Respiratory Exam Respiratory Exam: Clear to Ausculation Bilateral, NORMAL BREATHING PATTERN. absent: Chest Wall Tenderness, Rales, Rhonchi, Wheezes, Respiratory Distress - Cardiovascular Exam Cardiovascular Exam: REGULAR RHYTHM, +S1, +S2. absent: Murmur - Extremities Exam Extremities Exam: Tenderness (Mild tenderness of low ext) Additional comments: bilateral low ext swelling - Neurological Exam Neurological Exam: Alert, Awake - Psychiatric Exam Psychiatric exam: absent: Suicidal Ideation - Skin Skin Exam: Dry, Intact, Normal Color, Warm Assessment and Plan - Assessment and Plan (Free Text) Assessment: Patient is a 77 y/o F with PMH of HTN, DM2, OA, and COPD who presented to ED with family for AMS, delusions, and hallucinations x3 weeks in duration. Patient was admitted to the floor for Delirium 2/2 new watershed stroke. Patient is a candidate for TCU but also had suicidal intent during hospital course, subsequently placed on 1:1 precautions. Plan: Delirium 2/2 New Watershed Stroke - Improved mental status today; AAOx3 and responsive to questions - PT recommends acute rehab - Urinary retention as per nursing staff; bladder scan prn ordered - PT/OT - Brain MRI: multiple small cortical and subcortical infarcts in both hemispheres (R>L). Infarcts could be due to hypotensive watershed infarct. - Head/Neck CTA: negative - Echo: EF 62%. Mod-severe aortic regurgitation. Mild pulmonary HTN. - Blood pressure meds and blood thinners (DVT/PE ppx) held at this time - Neuro recs appreciated - Psychiatry consulted. Appreciated recs. Leukopenia - patient's wbc today was 1.7, down from 2.5. Consider infection, malignancy, drug side effect, and immunocompromised state. - Seroquel is a possible cause of leukopenia; however less suspicious because it was only given once - switched to seroquel prn Suicidal intent - c/w 1:1 precautions at this time; psych plans to d/c 1:1 tomorrow - patient verbalized intent and wanted to use plastic knife to hurt herself (08/02) - d/w patient's daughter (Calrk) at great length in regards to incident Episode of Bloody Diarrhea with electrolyte abnormalities - GI recommends rocephin and flagyl - CT A/P: segmental circumferential mucal thickening in proximal small bowel and mild distal descending colon and sigmoid colon. May represent acute, infectious, or inflammatory etiology. Severe diffuse anasarca. - As per GI, patient does not appear to have clinically relevant GI bleed, c/w symptomatic management. - ASA/Plavix and blood pressure meds are held at this time - GI consulted, recs appreciated. - C. diff negative - Hx of Crohn's disease - replete mag, phos, and potassium as needed NSTEMI - elevated troponins 2/2 stroke - No cath at this time. Continue with medical management. - Cardio recommended Lipitor 20mg, c/w ASA 325mg, Lopressor 25mg BID, and Plavix 75mg. No heparin gtt at this time. - trops 0.18 on admission, repeat trops were .14 -- secondary to stroke Hx of HTN - BP meds held at this time due to new stroke - Home meds are Lopressor 25mg BID and norvasc 5mg daily Hx of DM II - avoid hypoglycemia - ISS DVT ppx: SCDs GI ppx: PTX Dispo: Patient will be monitored on telemetry. Patient is still on 1:1 precaution for suicidal intent. Case was discussed and reviewed with Attending Physician, Dr. Quevedo. <Milagros Quevedo - Last Filed: 08/05/18 07:23> Objective - Vital Signs/Intake and Output Vital Signs (last 24 hours): Temp Pulse Resp BP Pulse Ox 97.8 F 59 L 20 95/52 L 98 08/05/18 06:00 08/05/18 06:00 08/05/18 06:00 08/05/18 06:00 08/05/18 06:00 Intake and Output: 08/05/18 08/05/18 06:59 18:59 Intake Total 400 Balance 400 - Medications Medications: Current Medications Acetaminophen (Tylenol 325mg Tab) 650 mg PO Q6H PRN PRN Reason: Fever >100.4 F Last Admin: 08/04/18 14:04 Dose: 650 mg Amlodipine Besylate (Norvasc) 5 mg PO DAILY [facility] Last Admin: 07/30/18 10:20 Dose: 5 mg Aspirin (Ecotrin) 325 mg PO DAILY [facility] Last Admin: 08/02/18 11:29 Dose: Not Given Atorvastatin Calcium (Lipitor) 40 mg PO DIN [facility] Last Admin: 08/04/18 17:56 Dose: 40 mg Cholecalciferol (Vitamin D) 2,000 intlu PO DAILY [facility] Last Admin: 08/04/18 10:40 Dose: 2,000 intlu Metronidazole (Flagyl) 500 mg in 100 mls @ 100 mls/hr IVPB Q8 [facility]; Protocol Last Admin: 08/05/18 05:09 Dose: 100 mls/hr Insulin Human Regular (Humulin R Med) 0 units SC ACHS [facility]; Protocol Last Admin: 08/04/18 21:20 Dose: Not Given Lorazepam (Ativan) 0.25 mg PO Q6 PRN; 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 Reason: Anxiety Mesalamine (Rowasa Enema) 4 gm RC BID [facility] Mesalamine (Pentasa) 500 mg PO QID [facility] Metoprolol Tartrate (Lopressor) 25 mg PO BID [facility] Last Admin: 07/30/18 18:45 Dose: 25 mg Ondansetron HCl (Zofran Inj) 4 mg IVP Q4H PRN PRN Reason: Nausea/Vomiting Last Admin: 08/04/18 13:13 Dose: 4 mg Pantoprazole Sodium (Protonix Ec Tab) 40 mg PO 0600 [facility] Last Admin: 08/05/18 05:10 Dose: 40 mg Quetiapine Fumarate (Seroquel) 12.5 mg PO HS PRN; 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 Reason: Agitation - Labs Labs: 08/04/18 07:50 08/04/18 07:50 PT 12.6 SECONDS (9.4-12.5) H 08/01/18 05:30 INR 1.09 08/01/18 05:30 APTT 36.0 Seconds (25.1-36.5) 08/01/18 05:30 Attending/Attestation - Attestation I have personally seen and examined this patient.: Yes I have fully participated in the care of the patient.: Yes I have reviewed all pertinent clinical information, including history, physical exam and plan: Yes Notes (Text): 08/04/18 77 year old female with past medical history of diabetes, hypertension and COPD who presented with altered mental status with delusions and hallucinations as per family. CT head showed chronic microvascular ischemic disease and moderate volume loss. CTA head/neck was negative. EEG was done and still pending read. MRI brain showed multiple small cortical / subcortical infarcts in both hemispheres, right greater than left. Patient also was found to have possible NSTEMI. She was started on aspirin, plavix and statin. Metoprolol was held due to watershed infarcts. Cardiology, neurology and psychiatry are following. Over the weekend she has episode of suicide intent with plastic knife. She was placed on 1:1 observation. Psychiatry follow up was appreciated. Delirium waxes and wanes but today she has been more cooperative. Consider d/c 1:1 observation as per psychiatry tomorrow morning. Hospital course was also complicated with diarrhea and episode of blood in stool yesterday. Aspirin and plavix were held. CT abd/pelvis was done today which shows segmental circumferential mucal thickening in proximal small bowel and mild distal descending colon and sigmoid colon, may represent acute, infectious, or inflammatory etiology; severe diffuse anasarca. Patient is started on iv antibiotics. GI is following and ordered CTA. Also noted to have leukopenia this morning; rule out infectious etiology vs medications. Seroquel changed to prn. Will continue to monitor closely. Bladder scan prn ordered in case of urinary retention. Will replete and repeat lytes. Patient will be transferred to acute rehab when medically clear. Milagros Quevedo MD Hospitalist.
[2018-08-04] MEDS ORDERED: Ciprofloxacin 400mg/200ml D5W 400 MG/200 ML BAG IVPB SCH (22:00)
[2018-08-05] MEDS: metroNIDAZOLE IV 500 mg/100 ml 500 MG/100 ML BAG IVPB SCH ×3 (05:09→21:37)
[2018-08-05] MEDS: Pantoprazole 40 mg EC Tab PO SCH (05:10)
[2018-08-05 07:59] LABS: BASO # 0.01 K/mm3 (0.0-2.0); BASO % 0.3 % (0.0-3.0); GRAN # 2.04 (1.4-6.5); GRAN % 67.6 % (50.0-68.0); HEMOGLOBIN 9.4 g/dL (12.0-16.0); LYMPH # 0.5 (1.2-3.4); LYMPH % 16.2 % (22.0-35.0); MEAN CELL VOLUME 88.3 fl (80.0-105.0); MEAN CORPUSCULAR HGB CONC 32.9 g/dl (31.0-37.0); MONO # 0.5 (0.1-0.6); MONO % 14.9 % (1.0-6.0); RBC 3.24 10^6/uL (3.5-6.1); RED CELL DISTRIBUTION WIDTH 19.3 % (11.5-14.5)
[2018-08-05 08:10] LABS: ALB/GLOB RATIO 0.6 (1.1-1.8); ALBUMIN 1.5 g/dL (3.0-4.8); ALT/SGPT 45 U/L (7-56); AST/SGOT 28 U/L (14-36); BLOOD UREA NITROGEN 18 mg/dL (7-21); GFR NON-AFRICAN AMERICAN > 60
--- NOTE | 2018-08-05 08:57 | CP.PCM.PN ---
<Teresa Lock - Last Filed: 08/05/18 08:54> Subjective - Date & Time of Evaluation Date of Evaluation: 08/05/18 Time of Evaluation: 08:54 - Subjective Subjective: Gastroenterology Fellow/PGY6 Progress Note Patient with improving mentation. Daughter at bedside. Tolerating liquid diet. Admits to three mucoid stools without hematochezia overnight. A 12-point review of systems negative except for as above. Objective - Vital Signs/Intake and Output Vital Signs (last 24 hours): Temp Pulse Resp BP Pulse Ox 97.8 F 59 L 20 95/52 L 98 08/05/18 06:00 08/05/18 06:00 08/05/18 06:00 08/05/18 06:00 08/05/18 06:00 Intake and Output: 08/05/18 08/05/18 06:59 18:59 Intake Total 400 120 Output Total 300 Balance 400 -180 - Medications Medications: Current Medications Acetaminophen (Tylenol 325mg Tab) 650 mg PO Q6H PRN PRN Reason: Fever >100.4 F Last Admin: 08/04/18 14:04 Dose: 650 mg Amlodipine Besylate (Norvasc) 5 mg PO DAILY [facility] Last Admin: 07/30/18 10:20 Dose: 5 mg Aspirin (Ecotrin) 325 mg PO DAILY [facility] Last Admin: 08/02/18 11:29 Dose: Not Given Atorvastatin Calcium (Lipitor) 40 mg PO DIN [facility] Last Admin: 08/04/18 17:56 Dose: 40 mg Cholecalciferol (Vitamin D) 2,000 intlu PO DAILY [facility] Last Admin: 08/04/18 10:40 Dose: 2,000 intlu Metronidazole (Flagyl) 500 mg in 100 mls @ 100 mls/hr IVPB Q8 [facility]; Protocol Last Admin: 08/05/18 05:09 Dose: 100 mls/hr Cefepime HCl (Maxipime 1gm) 1 gm in 100 mls @ 100 mls/hr IVPB Q8 [facility]; Protocol Insulin Human Regular (Humulin R Med) 0 units SC ACHS [facility]; Protocol Last Admin: 08/04/18 21:20 Dose: Not Given Lorazepam (Ativan) 0.25 mg PO Q6 PRN; 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 Reason: Anxiety Mesalamine (Rowasa Enema) 4 gm RC BID [facility] Mesalamine (Pentasa) 500 mg PO QID [facility] Metoprolol Tartrate (Lopressor) 25 mg PO BID [facility] Last Admin: 07/30/18 18:45 Dose: 25 mg Ondansetron HCl (Zofran Inj) 4 mg IVP Q4H PRN PRN Reason: Nausea/Vomiting Last Admin: 08/04/18 13:13 Dose: 4 mg Pantoprazole Sodium (Protonix Ec Tab) 40 mg PO 0600 [facility] Last Admin: 08/05/18 05:10 Dose: 40 mg Quetiapine Fumarate (Seroquel) 12.5 mg PO HS PRN; 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 Reason: Agitation - Labs Labs: 08/05/18 07:30 08/05/18 08:00 PT 12.6 SECONDS (9.4-12.5) H 08/01/18 05:30 INR 1.09 08/01/18 05:30 APTT 36.0 Seconds (25.1-36.5) 08/01/18 05:30 - Constitutional Appears: Non-toxic, No Acute Distress - Head Exam Head Exam: ATRAUMATIC, NORMOCEPHALIC - Eye Exam Eye Exam: EOMI, PERRL. absent: Scleral icterus Pupil Exam: PERRL. absent: Miosis, Mydriatic - ENT Exam ENT Exam: Mucous Membranes Moist, Normal Oropharynx - Neck Exam Neck Exam: Full ROM, Normal Inspection - Respiratory Exam Respiratory Exam: Clear to Ausculation Bilateral. absent: Rales, Rhonchi, Wheezes - Cardiovascular Exam Cardiovascular Exam: RRR, +S1, +S2. absent: Gallop, Rubs - GI/Abdominal Exam GI & Abdominal Exam: Soft, Normal Bowel Sounds. absent: Distended, Firm, Guarding, Rigid, Tenderness, Organomegaly, Rebound - Extremities Exam Extremities Exam: Normal Inspection. absent: Pedal Edema - Neurological Exam Neurological Exam: Alert, Awake - Psychiatric Exam Psychiatric exam: Normal Affect, Normal Mood - Skin Skin Exam: Dry, Intact, Normal Color, Warm Assessment and Plan - Assessment and Plan (Free Text) Assessment: 77 year old female with PMH of HTN, DM, osteoarthritis, COPD and suspected Crohn's Disease 2014 (not currently on maintenance therapy) presenting with altered mental status. Active treatment of NSTEMI< bilateral ischemic CVAs on ASA with Plavix held 2/2 concern for diarrhea with hematochezia. CT A/P PO contrast showed thickening of small bowel, descending, and recto-sigmoid colon. 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 Plan: -recommend restarting Plavix -started Rowasa enema and Mesalamine 500mg QID for likely IBD flare -on ceftriaxone and flagyl -Cdiff negative -H/H stable -no sign of acute GI bleed -will require colonoscopy for surveillance of prior active recto-sigmoid colitis on colonoscopy in 2014 -will follow clinical course <Harper Santiago V - Last Filed: 08/05/18 23:51> Objective - Vital Signs/Intake and Output Vital Signs (last 24 hours): Temp Pulse Resp BP Pulse Ox 99.1 F 60 18 90/44 L 98 08/05/18 18:00 08/05/18 22:00 08/05/18 18:00 08/05/18 18:29 08/05/18 06:00 Intake and Output: 08/05/18 08/06/18 18:59 06:59 Intake Total 1380 Output Total 500 Balance 880 - Medications Medications: Current Medications Acetaminophen (Tylenol 325mg Tab) 650 mg PO Q6H PRN PRN Reason: Fever >100.4 F Last Admin: 08/05/18 14:04 Dose: 650 mg Amlodipine Besylate (Norvasc) 5 mg PO DAILY [facility] Last Admin: 07/30/18 10:20 Dose: 5 mg Aspirin (Ecotrin) 325 mg PO DAILY [facility] Last Admin: 08/02/18 11:29 Dose: Not Given Atorvastatin Calcium (Lipitor) 40 mg PO DIN [facility] Last Admin: 08/05/18 19:18 Dose: 40 mg Cholecalciferol (Vitamin D) 2,000 intlu PO DAILY [facility] Last Admin: 08/05/18 10:51 Dose: 2,000 intlu Diltiazem HCl (Cardizem) 60 mg PO TID [facility] Last Admin: 08/05/18 18:28 Dose: Not Given Metronidazole (Flagyl) 500 mg in 100 mls @ 100 mls/hr IVPB Q8 [facility]; Protocol Last Admin: 08/05/18 21:37 Dose: 100 mls/hr Cefepime HCl (Maxipime 1gm) 1 gm in 100 mls @ 100 mls/hr IVPB Q8 [facility]; Protocol Last Admin: 08/05/18 21:37 Dose: 100 mls/hr Insulin Human Regular (Humulin R Med) 0 units SC ACHS [facility]; Protocol Last Admin: 08/05/18 22:55 Dose: Not Given Lorazepam (Ativan) 0.25 mg PO Q6 PRN; 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 Reason: Anxiety Last Admin: 08/05/18 10:51 Dose: 0.25 mg Mesalamine (Rowasa Enema) 4 gm RC BID [facility] Last Admin: 08/05/18 19:21 Dose: Not Given Mesalamine (Pentasa) 500 mg PO QID [facility] Last Admin: 08/05/18 22:46 Dose: 500 mg Metoprolol Tartrate (Lopressor) 25 mg PO BID [facility] Last Admin: 08/05/18 18:29 Dose: Not Given Ondansetron HCl (Zofran Inj) 4 mg IVP Q4H PRN PRN Reason: Nausea/Vomiting Last Admin: 08/04/18 13:13 Dose: 4 mg Pantoprazole Sodium (Protonix Ec Tab) 40 mg PO 0600 [facility] Last Admin: 08/05/18 05:10 Dose: 40 mg Quetiapine Fumarate (Seroquel) 12.5 mg PO HS PRN; 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 Reason: Agitation - Labs Labs: 08/05/18 07:30 08/05/18 08:00 PT 12.6 SECONDS (9.4-12.5) H 08/01/18 05:30 INR 1.09 08/01/18 05:30 APTT 36.0 Seconds (25.1-36.5) 08/01/18 05:30 Attending/Attestation - Attestation I have personally seen and examined this patient.: Yes I have fully participated in the care of the patient.: Yes I have reviewed all pertinent clinical information, including history, physical exam and plan: Yes Notes (Text): This is an addendum to GI progress report dictated by the GI Fellow.The patient was seen and examined earlier. Medical records, lab studies, imagings were revi ewed. Last 24 hours events reviewed. Agreed with the above treatment plan as outlined in GI Fellow 's notes with the addition of the following 08/05/18 23:51
--- NOTE | 2018-08-05 09:01 | CP.PCM.PN ---
<David Sun - Last Filed: 08/05/18 16:11> Subjective - Date & Time of Evaluation Date of Evaluation: 08/05/18 Time of Evaluation: 07:00 - Subjective Subjective: David Sun PGY1 Medicine Progress Note for Dr. Quevedo Patient was seen and examined at bedside this morning. Daughter was present at bedside. In-length discussion with daughter about patient's condition. She is more responsive this morning. Mental status is AAOx2. Patient has some mild abdominal pain., Denies n/v/d. No more episodes of bloody bowel movements noted by nursing staff. 1:1 nurse was present. No acute overnight events. Vital signs are stable. A full 12 point ROS was conducted and unremarkable except as stated above. Objective - Vital Signs/Intake and Output Vital Signs (last 24 hours): Temp Pulse Resp BP Pulse Ox 97.8 F 59 L 20 95/52 L 98 08/05/18 06:00 08/05/18 06:00 08/05/18 06:00 08/05/18 06:00 08/05/18 06:00 Intake and Output: 08/05/18 08/05/18 06:59 18:59 Intake Total 400 120 Output Total 300 Balance 400 -180 - Medications Medications: Current Medications Acetaminophen (Tylenol 325mg Tab) 650 mg PO Q6H PRN PRN Reason: Fever >100.4 F Last Admin: 08/04/18 14:04 Dose: 650 mg Amlodipine Besylate (Norvasc) 5 mg PO DAILY [facility] Last Admin: 07/30/18 10:20 Dose: 5 mg Aspirin (Ecotrin) 325 mg PO DAILY [facility] Last Admin: 08/02/18 11:29 Dose: Not Given Atorvastatin Calcium (Lipitor) 40 mg PO DIN [facility] Last Admin: 08/04/18 17:56 Dose: 40 mg Cholecalciferol (Vitamin D) 2,000 intlu PO DAILY [facility] Last Admin: 08/04/18 10:40 Dose: 2,000 intlu Metronidazole (Flagyl) 500 mg in 100 mls @ 100 mls/hr IVPB Q8 [facility]; Protocol Last Admin: 08/05/18 05:09 Dose: 100 mls/hr Cefepime HCl (Maxipime 1gm) 1 gm in 100 mls @ 100 mls/hr IVPB Q8 [facility]; Protocol Insulin Human Regular (Humulin R Med) 0 units SC ACHS [facility]; Protocol Last Admin: 08/04/18 21:20 Dose: Not Given Lorazepam (Ativan) 0.25 mg PO Q6 PRN; 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 Reason: Anxiety Mesalamine (Rowasa Enema) 4 gm RC BID [facility] Mesalamine (Pentasa) 500 mg PO QID [facility] Metoprolol Tartrate (Lopressor) 25 mg PO BID [facility] Last Admin: 07/30/18 18:45 Dose: 25 mg Ondansetron HCl (Zofran Inj) 4 mg IVP Q4H PRN PRN Reason: Nausea/Vomiting Last Admin: 08/04/18 13:13 Dose: 4 mg Pantoprazole Sodium (Protonix Ec Tab) 40 mg PO 0600 [facility] Last Admin: 08/05/18 05:10 Dose: 40 mg Quetiapine Fumarate (Seroquel) 12.5 mg PO HS PRN; 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 Reason: Agitation - Labs Labs: 08/05/18 07:30 08/05/18 08:00 PT 12.6 SECONDS (9.4-12.5) H 08/01/18 05:30 INR 1.09 08/01/18 05:30 APTT 36.0 Seconds (25.1-36.5) 08/01/18 05:30 - Constitutional Appears: No Acute Distress - Head Exam Head Exam: ATRAUMATIC, NORMAL INSPECTION, NORMOCEPHALIC - Eye Exam Eye Exam: EOMI, Normal appearance, PERRL - ENT Exam ENT Exam: Mucous Membranes Moist, Normal Exam - Neck Exam Neck Exam: Full ROM, Normal Inspection. absent: Lymphadenopathy - Respiratory Exam Respiratory Exam: Clear to Ausculation Bilateral, NORMAL BREATHING PATTERN. absent: Rales, Rhonchi, Wheezes - Cardiovascular Exam Cardiovascular Exam: REGULAR RHYTHM, +S1, +S2. absent: Murmur - GI/Abdominal Exam GI & Abdominal Exam: Soft, Tenderness, Normal Bowel Sounds - Extremities Exam Extremities Exam: Full ROM, Normal Capillary Refill, Normal Inspection. absent: Joint Swelling, Pedal Edema - Psychiatric Exam Additional comments: Impaired concentration. Aphasia still present. - Skin Skin Exam: Dry, Intact, Normal Color, Warm Assessment and Plan - Assessment and Plan (Free Text) Assessment: Patient is a 77 y/o F with PMH of HTN, DM2, OA, and COPD who presented to ED with family for AMS, delusions, and hallucinations x3 weeks in duration. Patient was admitted to the floor for Delirium 2/2 new watershed stroke. Patient is a candidate for TCU but also had suicidal intent during hospital course, subsequently placed on 1:1 precautions. Plan: Delirium 2/2 New Watershed Stroke - Improved mental status - Cardio does not recommend PATRICK at this time - patient restarted on aspirin - PT recommends acute rehab; continuing to hold plavix at this time - c/w bladder scan prn - PT recommends acute rehab. - Brain MRI: multiple small cortical and subcortical infarcts in both delmi spheres (R>L). Infarcts could be due to hypotensive watershed infarct. - Head/Neck CTA: negative - Echo: EF 62%. Mod-severe aortic regurgitation. Mild pulmonary HTN. - Blood pressure meds and blood thinners (DVT/PE ppx) held at this time - Neuro recs appreciated - Psychiatry recs appreciated. Afib noted on EKG - cardio started patient on cardizem 60mg PO TID - patient's CHADVASC score is 7; high risk, consider anticoagulation however patient also has new stroke findings since hospital admission (High HAS-BLED score) - restarted on aspirin today - continue to monitor Leukopenia - patient's wbc today is 3 - Seroquel is a possible cause of leukopenia; however less suspicious because it was only given once - switched to seroquel prn Suicidal intent - d/c 1:1 precautions as per psych recommendations - patient verbalized intent and wanted to use plastic knife to hurt herself (08/02) - d/w patient's daughter (Clark) at great length in regards to incident Episode of Bloody Diarrhea likely due to Hx of Crohn's disease - Antibiotic changed to cefepime - monitor H/H - GI initially wanted CT angio for possible ischemic colitis, however, more likely to be Crohn's - CT A/P: segmental circumferential mucal thickening in proximal small bowel and mild distal descending colon and sigmoid colon. May represent acute, infectious, or inflammatory etiology. Severe diffuse anasarca. - As per GI, patient does not appear to have clinically relevant GI bleed, c/w symptomatic management. - aspirin was restarted - GI consulted, recs appreciated. - C. diff negative - replete lytes NSTEMI - elevated troponins 2/2 stroke - No cath at this time. Continue with medical management. - Cardio recommended Lipitor 20mg, c/w ASA 325mg, Lopressor 25mg BID, and Plavix 75mg. No heparin gtt at this time. - trops 0.18 on admission, repeat trops were .14 -- secondary to stroke Hx of HTN - BP meds held at this time due to new stroke - Home meds are Lopressor 25mg BID and norvasc 5mg daily Hx of DM II - avoid hypoglycemia - ISS DVT ppx: SCDs GI ppx: PTX Dispo: Patient will be monitored on telemetry. 1:1 precautions was discontinued. PT recommends acute rehab. Case was discussed and reviewed with Attending Physician, Dr. Quevedo. <Milagros Quevedo - Last Filed: 08/05/18 17:35> Objective - Vital Signs/Intake and Output Vital Signs (last 24 hours): Temp Pulse Resp BP Pulse Ox 100.9 F H 143 H 19 160/72 H 98 08/05/18 14:22 08/05/18 14:07 08/05/18 12:00 08/05/18 14:07 08/05/18 06:00 Intake and Output: 08/05/18 08/05/18 06:59 18:59 Intake Total 400 120 Output Total 300 Balance 400 -180 - Medications Medications: Current Medications Acetaminophen (Tylenol 325mg Tab) 650 mg PO Q6H PRN PRN Reason: Fever >100.4 F Last Admin: 08/05/18 14:04 Dose: 650 mg Amlodipine Besylate (Norvasc) 5 mg PO DAILY [facility] Last Admin: 07/30/18 10:20 Dose: 5 mg Aspirin (Ecotrin) 325 mg PO DAILY [facility] Last Admin: 08/02/18 11:29 Dose: Not Given Atorvastatin Calcium (Lipitor) 40 mg PO DIN [facility] Last Admin: 08/04/18 17:56 Dose: 40 mg Cholecalciferol (Vitamin D) 2,000 intlu PO DAILY [facility] Last Admin: 08/05/18 10:51 Dose: 2,000 intlu Diltiazem HCl (Cardizem) 60 mg PO TID [facility] Last Admin: 08/05/18 14:07 Dose: 60 mg Metronidazole (Flagyl) 500 mg in 100 mls @ 100 mls/hr IVPB Q8 [facility]; Protocol Last Admin: 08/05/18 14:41 Dose: 100 mls/hr Cefepime HCl (Maxipime 1gm) 1 gm in 100 mls @ 100 mls/hr IVPB Q8 [facility]; Protocol Last Admin: 08/05/18 14:38 Dose: 100 mls/hr Insulin Human Regular (Humulin R Med) 0 units SC ACHS [facility]; Protocol Last Admin: 08/05/18 14:16 Dose: Not Given Lorazepam (Ativan) 0.25 mg PO Q6 PRN; 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 Reason: Anxiety Last Admin: 08/05/18 10:51 Dose: 0.25 mg Mesalamine (Rowasa Enema) 4 gm RC BID [facility] Last Admin: 08/05/18 10:55 Dose: 4 gm Mesalamine (Pentasa) 500 mg PO QID [facility] Last Admin: 08/05/18 14:41 Dose: 500 mg Metoprolol Tartrate (Lopressor) 25 mg PO BID [facility] Last Admin: 08/05/18 14:05 Dose: 25 mg Ondansetron HCl (Zofran Inj) 4 mg IVP Q4H PRN PRN Reason: Nausea/Vomiting Last Admin: 08/04/18 13:13 Dose: 4 mg Pantoprazole Sodium (Protonix Ec Tab) 40 mg PO 0600 [facility] Last Admin: 08/05/18 05:10 Dose: 40 mg Quetiapine Fumarate (Seroquel) 12.5 mg PO HS PRN; 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 Reason: Agitation - Labs Labs: 08/05/18 07:30 08/05/18 08:00 PT 12.6 SECONDS (9.4-12.5) H 08/01/18 05:30 INR 1.09 08/01/18 05:30 APTT 36.0 Seconds (25.1-36.5) 08/01/18 05:30 Attending/Attestation - Attestation I have personally seen and examined this patient.: Yes I have fully participated in the care of the patient.: Yes I have reviewed all pertinent clinical information, including history, physical exam and plan: Yes Notes (Text): 08/05/18 17:31 77 year old female with past medical history of diabetes, hypertension and COPD who presented with altered mental status with delusions and hallucinations as per family. CT head showed chronic microvascular ischemic disease and moderate volume loss. CTA head/neck was negative. EEG was done and still pending read. MRI brain showed multiple small cortical / subcortical infarcts in both hemispheres, right greater than left. Patient also was found to have possible NSTEMI. She was started on aspirin, plavix and statin. Metoprolol was held due to watershed infarcts. Cardiology, neurology and psychiatry are following. Over the weekend she has episode of suicide intent with plastic knife. She was placed on 1:1 observation. Psychiatry follow up was appreciated. Delirium waxes and wanes but she has improved yesterday and today. Will d/c 1:1 observation for now as per psychiatry recommendations. Hospital course was also complicated with diarrhea and episode of blood in stool over the weekend. Aspirin and plavix were held. CT abd/pelvis showed segmental circumferential mucal thickening in proximal small bowel and mild distal dorinda cending colon and sigmoid colon, may represent acute, infectious, or inflammatory etiology; severe diffuse anasarca. Patient was started on iv antibiotics. GI is following; also started rowasa/pentasa. Today she had afib with rvr and fever. Cardiology is following and started cardizem drip. Aspirin is resumed for now. Will need to monitor for further bleeding prior to resuming plavix or started AC. Will need to discuss with GI, cardiology and neurology for recommendations. Leukopenia is improved. Rule out infectious etiology vs medications. Seroquel was changed to prn. Will continue to monitor closely. Bladder scan prn ordered in case of urinary retention. Will replete and repeat lytes. Patient will be transferred to acute rehab when medically clear. Milagros Quevedo MD Hospitalist.
[2018-08-05] MEDS: Insulin Reg-MEDIUM-Coverage SC SCH ×4 (09:25→22:55)
[2018-08-05] MEDS: Mesalamine ER Cap 500 MG PO SCH ×4 (10:50→22:46)
[2018-08-05] MEDS: Cholecalciferol 1,000 INTLU TAB PO SCH (10:51)
[2018-08-05] MEDS: Cefepime 1gm in NS 100ml 1 GM/100 ML BAG IVPB SCH ×3 (10:51→21:37)
--- NOTE | 2018-08-05 15:21 | CP.PCM.PN ---
<Walter Tijerina - Last Filed: 08/05/18 15:18> Subjective - Date & Time of Evaluation Date of Evaluation: 08/05/18 Time of Evaluation: 11:00 - Subjective Subjective: Walter Tijerina- Internal Medicine Resident- Consult Note on Behalf of Neurology Team Subjective: Patient seen and examined at bedside. No acute events overnight. Patient is more awake and alert. Offers no new complaints at this time. Follows commands. Denies weakness, dizziness, headache, numbness, and focal deficits. 12 point ROS negative except as indicated in the HPI Physical Examination: - Constitutional Appears: Well, Non-toxic, No Acute Distress - Head Exam Head Exam: ATRAUMATIC, NORMAL INSPECTION, NORMOCEPHALIC - Eye Exam Eye Exam: EOMI, Normal appearance - ENT Exam ENT Exam: Mucous Membranes Moist, Normal Exam, No tongue laceration - Neck Exam Neck exam: Positive for: Full Rom, Normal Inspection - Respiratory Exam Respiratory Exam: Clear to Auscultation Bilateral, NORMAL BREATHING PATTERN. absent: Accessory Muscle Use, Rales, Rhonchi, Wheezes, Respiratory Distress - Cardiovascular Exam Cardiovascular Exam: REGULAR RHYTHM, +S1, +S2 - GI/Abdominal Exam GI & Abdominal Exam: Normal Bowel Sounds, Soft. absent: Distended, Firm, Guarding, Rebound, Rigid, Tenderness - Extremities Exam Extremities exam: Positive for: full ROM, normal capillary refill, normal inspection, pedal pulses present - Neurological Exam Neurological exam: awake, alert, orientated x [address], responds to verbal stimuli, answers questions appropriately, follows commands, moves extremities past midline, no neglect noted - Skin Skin Exam: Intact, Normal Color, Warm Assessment and Plan: Patient is a 77 year old female with a past medical history of HTN, DM2, and OA who was admitted for evaluation and treatment of altered mental status and hallucinations/delusions. Neurology was consulted for management of altered mental status. Altered Mental Status -07/28/[address] without contrast- Moderate volume loss and chronic micr ovascular ischemic disease. No evidence of acute intracranial hemorrhage mass effect or midline shift. - 07/29/2018 Brain MRI with and without contrast- multiple small cortical and subcortical infarcts in both hemispheres right greater than left - 07/30/2018 CTA head and neck- No evidence of stenosis or occlusion, Unremarkable CT Angiography of the Brain. - 07/2018 Echocardiogram- LVEF 63%, moderate to severe aortic regurg - continue with physical therapy, occupation therapy, and speech therapy - EEG ordered and pending - PATRICK with bubble study ordered and pending Patient case discussed with and plan approved by attending physician, Dr. Alberts. Objective - Vital Signs/Intake and Output Vital Signs (last 24 hours): Temp Pulse Resp BP Pulse Ox 100.9 F H 143 H 19 160/72 H 98 08/05/18 14:22 08/05/18 14:07 08/05/18 12:00 08/05/18 14:07 08/05/18 06:00 Intake and Output: 08/05/18 08/05/18 06:59 18:59 Intake Total 400 120 Output Total 300 Balance 400 -180 - Medications Medications: Current Medications Acetaminophen (Tylenol 325mg Tab) 650 mg PO Q6H PRN PRN Reason: Fever >100.4 F Last Admin: 08/05/18 14:04 Dose: 650 mg Amlodipine Besylate (Norvasc) 5 mg PO DAILY [facility] Last Admin: 07/30/18 10:20 Dose: 5 mg Aspirin (Ecotrin) 325 mg PO DAILY [facility] Last Admin: 08/02/18 11:29 Dose: Not Given Atorvastatin Calcium (Lipitor) 40 mg PO DIN [facility] Last Admin: 08/04/18 17:56 Dose: 40 mg Cholecalciferol (Vitamin D) 2,000 intlu PO DAILY [facility] Last Admin: 08/05/18 10:51 Dose: 2,000 intlu Diltiazem HCl (Cardizem) 60 mg PO TID [facility] Last Admin: 08/05/18 14:07 Dose: 60 mg Metronidazole (Flagyl) 500 mg in 100 mls @ 100 mls/hr IVPB Q8 [facility]; Protocol Last Admin: 08/05/18 14:41 Dose: 100 mls/hr Cefepime HCl (Maxipime 1gm) 1 gm in 100 mls @ 100 mls/hr IVPB Q8 [facility]; Protocol Last Admin: 08/05/18 14:38 Dose: 100 mls/hr Insulin Human Regular (Humulin R Med) 0 units SC ACHS [facility]; Protocol Last Admin: 08/05/18 14:16 Dose: Not Given Lorazepam (Ativan) 0.25 mg PO Q6 PRN; 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 Reason: Anxiety Last Admin: 08/05/18 10:51 Dose: 0.25 mg Mesalamine (Rowasa Enema) 4 gm RC BID [facility] Last Admin: 08/05/18 10:55 Dose: 4 gm Mesalamine (Pentasa) 500 mg PO QID [facility] Last Admin: 08/05/18 14:41 Dose: 500 mg Metoprolol Tartrate (Lopressor) 25 mg PO BID [facility] Last Admin: 08/05/18 14:05 Dose: 25 mg Ondansetron HCl (Zofran Inj) 4 mg IVP Q4H PRN PRN Reason: Nausea/Vomiting Last Admin: 08/04/18 13:13 Dose: 4 mg Pantoprazole Sodium (Protonix Ec Tab) 40 mg PO 0600 [facility] Last Admin: 08/05/18 05:10 Dose: 40 mg Quetiapine Fumarate (Seroquel) 12.5 mg PO HS PRN; 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 Reason: Agitation - Labs Labs: 08/05/18 07:30 08/05/18 08:00 PT 12.6 SECONDS (9.4-12.5) H 08/01/18 05:30 INR 1.09 08/01/18 05:30 APTT 36.0 Seconds (25.1-36.5) 08/01/18 05:30 <Travis Alberts - Last Filed: 08/05/18 17:38> Objective - Vital Signs/Intake and Output Vital Signs (last 24 hours): Temp Pulse Resp BP Pulse Ox 100.9 F H 143 H 19 160/72 H 98 08/05/18 14:22 08/05/18 14:07 08/05/18 12:00 08/05/18 14:07 08/05/18 06:00 Intake and Output: 08/05/18 08/05/18 06:59 18:59 Intake Total 400 120 Output Total 300 Balance 400 -180 - Medications Medications: Current Medications Acetaminophen (Tylenol 325mg Tab) 650 mg PO Q6H PRN PRN Reason: Fever >100.4 F Last Admin: 08/05/18 14:04 Dose: 650 mg Amlodipine Besylate (Norvasc) 5 mg PO DAILY [facility] Last Admin: 07/30/18 10:20 Dose: 5 mg Aspirin (Ecotrin) 325 mg PO DAILY [facility] Last Admin: 08/02/18 11:29 Dose: Not Given Atorvastatin Calcium (Lipitor) 40 mg PO DIN [facility] Last Admin: 08/04/18 17:56 Dose: 40 mg Cholecalciferol (Vitamin D) 2,000 intlu PO DAILY [facility] Last Admin: 08/05/18 10:51 Dose: 2,000 intlu Diltiazem HCl (Cardizem) 60 mg PO TID [facility] Last Admin: 08/05/18 14:07 Dose: 60 mg Metronidazole (Flagyl) 500 mg in 100 mls @ 100 mls/hr IVPB Q8 [facility]; Protocol Last Admin: 08/05/18 14:41 Dose: 100 mls/hr Cefepime HCl (Maxipime 1gm) 1 gm in 100 mls @ 100 mls/hr IVPB Q8 [facility]; Protocol Last Admin: 08/05/18 14:38 Dose: 100 mls/hr Insulin Human Regular (Humulin R Med) 0 units SC ACHS [facility]; Protocol Last Admin: 08/05/18 14:16 Dose: Not Given Lorazepam (Ativan) 0.25 mg PO Q6 PRN; 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 Reason: Anxiety Last Admin: 08/05/18 10:51 Dose: 0.25 mg Mesalamine (Rowasa Enema) 4 gm RC BID [facility] Last Admin: 08/05/18 10:55 Dose: 4 gm Mesalamine (Pentasa) 500 mg PO QID [facility] Last Admin: 08/05/18 14:41 Dose: 500 mg Metoprolol Tartrate (Lopressor) 25 mg PO BID [facility] Last Admin: 08/05/18 14:05 Dose: 25 mg Ondansetron HCl (Zofran Inj) 4 mg IVP Q4H PRN PRN Reason: Nausea/Vomiting Last Admin: 08/04/18 13:13 Dose: 4 mg Pantoprazole Sodium (Protonix Ec Tab) 40 mg PO 0600 [facility] Last Admin: 08/05/18 05:10 Dose: 40 mg Quetiapine Fumarate (Seroquel) 12.5 mg PO HS PRN; 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 Reason: Agitation - Labs Labs: 08/05/18 07:30 08/05/18 08:00 PT 12.6 SECONDS (9.4-12.5) H 08/01/18 05:30 INR 1.09 08/01/18 05:30 APTT 36.0 Seconds (25.1-36.5) 08/01/18 05:30 Attending/Attestation - Attestation I have personally seen and examined this patient.: Yes I have fully participated in the care of the patient.: Yes I have reviewed all pertinent clinical information, including history, physical exam and plan: Yes Notes (Text): 08/05/18 17:36 I agree with the assessment and plan: - continue with physical therapy, occupation therapy, and speech therapy - EEG ordered and pending - PATRICK with bubble study ordered and pending
--- NOTE | 2018-08-05 15:49 | PN ---
DATE: 08/05/2018 SUBJECTIVE: The patient was followed up today. The patient presented to be confused. No meaningful conversation possible. The patient has word salad. The patient was talking about sugar, then the patient switched conversation to variety of objects. No connection between statements. The patient presented to be psychotic, but not agitated. Medical team raised concern about Seroquel and possible effect on the patient's WBC cells as well as granulocytes level. Seroquel is only as-needed and at present moment, the patient got only one dose of Seroquel 12.5 mg at the nighttime. It is highly unlikely the patient to develop low WBC cells and granulocytosis due to one dose of Seroquel. On top of that, repeated labs showed WBC cells going up 3 today and granulocytes are 2.04. Vital signs seems to be unstable. Temperature is 100.9, pulse is 143, blood pressure 160/72, respirations 19. Medications reviewed. The patient is on aspirin, Lipitor, cefepime, vitamin D, Cardizem, Humulin, Ativan, mesalamine, Pentasa, Lopressor, Flagyl, Protonix, Seroquel only if needed for agitation, but the patient was not agitated. Labs reviewed. Vital signs reviewed. MENTAL STATUS EXAMINATION: As this policy writer sales described above, the patient presented to be disorganized, psychotic, word salad. There is no connection between statements. The patient was not able to participate in interview and comprehend the questions. Insight and judgment seems to be limited. Impulses are better controlled. IMPRESSION: The patient has delirium due to medical issues. The patient had bilateral ischemic cerebrovascular accident. The patient is on aspirin. The patient's psychotic symptoms related to the medical issues and cerebrovascular accident. PLAN: At present moment, reassurance as well as only as-needed medications. The patient is obviously delirious as well as has some aphasia and some restlessness due to all above, but the patient does not have any agitation or aggression. Recommended to try to discontinue one-to-one observation because the patient does not exhibit any aggressive or violent behavior. Family is involved. Should you have any questions, give me a call back. Maria Eugenia Jiang MD [facility] # [id number] MTDAdelina
--- NOTE | 2018-08-05 16:24 | RAD ---
Date of service: 08/05/2018 HISTORY: fever COMPARISON: 07/28/2018 FINDINGS: LUNGS: There is an infiltrate at the left lung base that obscures the diaphragmatic border. This could represent atelectasis or pneumonia. PLEURA: No significant pleural effusion identified, no pneumothorax apparent. CARDIOVASCULAR: Aortic calcifications and tortuosity Mild cardiomegaly mild vascular congestion OSSEOUS STRUCTURES: No significant abnormalities. VISUALIZED UPPER ABDOMEN: Normal. OTHER FINDINGS: None. IMPRESSION: There is an infiltrate at the left lung base that obscures the diaphragmatic border. This could represent atelectasis or pneumonia.
--- NOTE | 2018-08-05 17:28 | CP.PCM.CON ---
History of Present Illness - History of Present Illness History of Present Illness: 77 year old female with PMH of HTN, DM, COPD, OA, possible Crohn's disease was initially brought in to [facility] [place] because of hallucinations and delusions. She was seen to have CVA's and Neurology is following the patient. The patient was also found to have blood in her stools and CT scan of the abdomen and pelvis is showing pancolitis. She is being followed by GI and work up is in progress regarding the blood in the stools. Infectious Diseases consult is requested to evaluate the pancolitis seen on the CT scan. Full ROS is unobtainable because the patient is uncooperative. There is no note of fevers, no vomiting currently. Review of Systems - Review of Systems All systems: reviewed and no additional remarkable complaints except (as per HPI) Past Patient History - Infectious Disease Hx of Infectious Diseases: None - Tetanus Immunizations Tetanus Immunization: Unknown - Past Social History Smoking Status: Former Smoker - CARDIAC Hx Hypertension: Yes - PULMONARY Hx Chronic Obstructive Pulmonary Disease (COPD): Yes - NEUROLOGICAL Hx Neurological Disorder: Yes (paranoid, delusional) - HEENT Hx HEENT Problems: No - RENAL Hx Chronic Kidney Disease: No - ENDOCRINE/METABOLIC Hx Diabetes Mellitus Type 2: Yes - HEMATOLOGICAL/ONCOLOGICAL Hx Blood Disorders: No - INTEGUMENTARY Hx Dermatological Problems: No - MUSCULOSKELETAL/RHEUMATOLOGICAL Hx Arthritis: Yes - GASTROINTESTINAL Hx Gastrointestinal Disorders: No - GENITOURINARY/GYNECOLOGICAL Hx Genitourinary Disorders: No - PSYCHIATRIC Hx Psychophysiologic Disorder: Yes Hx Emotional Abuse: No Hx Paranoia: Yes (acute) Hx Physical Abuse: No - SURGICAL HISTORY Hx Surgeries: Yes Hx Orthopedic Surgery: Yes (LEFT KNEE) - ANESTHESIA Hx Anesthesia Reactions: No Hx Malignant Hyperthermia: No Meds Allergies/Adverse Reactions: Allergies Allergy/AdvReac Type Severity Reaction Status Date / Time No Known Allergies Allergy Verified 02/12/14 12:07 - Medications Medications: Current Medications Acetaminophen (Tylenol 325mg Tab) 650 mg PO Q6H PRN PRN Reason: Fever >100.4 F Last Admin: 08/04/18 14:04 Dose: 650 mg Amlodipine Besylate (Norvasc) 5 mg PO DAILY [facility] Last Admin: 07/30/18 10:20 Dose: 5 mg Aspirin (Ecotrin) 325 mg PO DAILY [facility] Last Admin: 08/02/18 11:29 Dose: Not Given Atorvastatin Calcium (Lipitor) 40 mg PO DIN [facility] Last Admin: 08/04/18 17:56 Dose: 40 mg Cholecalciferol (Vitamin D) 2,000 intlu PO DAILY [facility] Last Admin: 08/04/18 10:40 Dose: 2,000 intlu Metronidazole (Flagyl) 500 mg in 100 mls @ 100 mls/hr IVPB Q8 [facility]; Protocol Last Admin: 08/05/18 05:09 Dose: 100 mls/hr Cefepime HCl (Maxipime 1gm) 1 gm in 100 mls @ 100 mls/hr IVPB Q8 [facility]; Protocol Insulin Human Regular (Humulin R Med) 0 units SC ACHS [facility]; Protocol Last Admin: 08/04/18 21:20 Dose: Not Given Lorazepam (Ativan) 0.25 mg PO Q6 PRN; 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 Reason: Anxiety Mesalamine (Rowasa Enema) 4 gm RC BID [facility] Mesalamine (Pentasa) 500 mg PO QID [facility] Metoprolol Tartrate (Lopressor) 25 mg PO BID [facility] Last Admin: 07/30/18 18:45 Dose: 25 mg Ondansetron HCl (Zofran Inj) 4 mg IVP Q4H PRN PRN Reason: Nausea/Vomiting Last Admin: 08/04/18 13:13 Dose: 4 mg Pantoprazole Sodium (Protonix Ec Tab) 40 mg PO 0600 [facility] Last Admin: 08/05/18 05:10 Dose: 40 mg Quetiapine Fumarate (Seroquel) 12.5 mg PO HS PRN; 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 Reason: Agitation Physical Exam - Constitutional Appears: Chronically Ill - Head Exam Head Exam: NORMAL INSPECTION - Respiratory Exam Respiratory Exam: Decreased Breath Sounds - Cardiovascular Exam Cardiovascular Exam: +S1, +S2 - GI/Abdominal Exam GI & Abdominal Exam: Soft. absent: Tenderness Results - Vital Signs Recent Vital Signs: Last Vital Signs Temp 97.8 F 08/05/18 06:00 Pulse 59 L 08/05/18 06:00 Resp 20 08/05/18 06:00 BP 95/52 L 08/05/18 06:00 Pulse Ox 98 08/05/18 06:00 - Labs Result Diagrams: 08/05/18 07:30 08/05/18 08:00 Labs: Laboratory Results - last 24 hr 08/02/18 08/02/1818 07:41 11:18 16:19 WBC RBC Hgb Hct MCV MCH MCHC RDW Plt Count MPV Gran % Lymph % (Auto) Falls % (Auto) Eos % (Auto) Baso % (Auto) Gran # Lymph # (Auto) Falls # (Auto) Eos # (Auto) Baso # (Auto) Neutrophils % (Manual) Band Neutrophils % Lymphocytes % (Manual) Monocytes % (Manual) Platelet Evaluation Sodium Potassium Chloride Carbon Dioxide Anion Gap BUN Creatinine Est GFR ( Amer) Est GFR (Non-Af Amer) POC Glucose (mg/dL) 73 71 90 Random Glucose Calcium Phosphorus Magnesium Total Bilirubin AST ALT Alkaline Phosphatase Total Protein Albumin Globulin Albumin/Globulin Ratio 08/02/18 08/03/18 08/03/18 21:36 07:43 11:13 WBC RBC Hgb Hct MCV MCH MCHC RDW Plt Count MPV Gran % Lymph % (Auto) Falls % (Auto) Eos % (Auto) Baso % (Auto) Gran # Lymph # (Auto) Falls # (Auto) Eos # (Auto) Baso # (Auto) Neutrophils % (Manual) Band Neutrophils % Lymphocytes % (Manual) Monocytes % (Manual) Platelet Evaluation Sodium Potassium Chloride Carbon Dioxide Anion Gap BUN Creatinine Est GFR ( Amer) Est GFR (Non-Af Amer) POC Glucose (mg/dL) 78 79 191 H Random Glucose Calcium Phosphorus Magnesium Total Bilirubin AST ALT Alkaline Phosphatase Total Protein Albumin Globulin Albumin/Globulin Ratio 08/03/18 08/03/18 08/04/18 16:16 21:17 07:21 WBC RBC Hgb Hct MCV MCH MCHC RDW Plt Count MPV Gran % Lymph % (Auto) Falls % (Auto) Eos % (Auto) Baso % (Auto) Gran # Lymph # (Auto) Falls # (Auto) Eos # (Auto) Baso # (Auto) Neutrophils % (Manual) Band Neutrophils % Lymphocytes % (Manual) Monocytes % (Manual) Platelet Evaluation Sodium Potassium Chloride Carbon Dioxide Anion Gap BUN Creatinine Est GFR ( Amer) Est GFR (Non-Af Amer) POC Glucose (mg/dL) 115 H 176 H 90 Random Glucose Calcium Phosphorus Magnesium Total Bilirubin AST ALT Alkaline Phosphatase Total Protein Albumin Globulin Albumin/Globulin Ratio 08/04/18 08/04/18 08/04/18 07:50 11:27 17:02 WBC RBC Hgb Hct MCV MCH MCHC RDW Plt Count MPV Gran % Lymph % (Auto) Falls % (Auto) Eos % (Auto) Baso % (Auto) Gran # Lymph # (Auto) Falls # (Auto) Eos # (Auto) Baso # (Auto) Neutrophils % (Manual) 81 H Band Neutrophils % 3 H Lymphocytes % (Manual) 9 L Monocytes % (Manual) 7 H Platelet Evaluation Low Sodium Potassium Chloride Carbon Dioxide Anion Gap BUN Creatinine Est GFR ( Amer) Est GFR (Non-Af Amer) POC Glucose (mg/dL) 145 H 254 H Random Glucose Calcium Phosphorus Magnesium Total Bilirubin AST ALT Alkaline Phosphatase Total Protein Albumin Globulin Albumin/Globulin Ratio 08/04/18 08/05/18 08/05/18 21:10 07:30 07:38 WBC 3.0 L D RBC 3.24 L Hgb 9.4 L Hct 28.6 L MCV 88.3 MCH 29.0 MCHC 32.9 RDW 19.3 H Plt Count 98 L MPV 8.0 Gran % 67.6 Lymph % (Auto) 16.2 L Falls % (Auto) 14.9 H Eos % (Auto) 1.0 L Baso % (Auto) 0.3 Gran # 2.04 Lymph # (Auto) 0.5 L Falls # (Auto) 0.5 Eos # (Auto) 0.0 Baso # (Auto) 0.01 Neutrophils % (Manual) Band Neutrophils % Lymphocytes % (Manual) Monocytes % (Manual) Platelet Evaluation Sodium Potassium Chloride Carbon Dioxide Anion Gap BUN Creatinine Est GFR ( Amer) Est GFR (Non-Af Amer) POC Glucose (mg/dL) 156 H 83 Random Glucose Calcium Phosphorus Magnesium Total Bilirubin AST ALT Alkaline Phosphatase Total Protein Albumin Globulin Albumin/Globulin Ratio 08/05/18 08:00 WBC RBC Hgb Hct MCV MCH MCHC RDW Plt Count MPV Gran % Lymph % (Auto) Falls % (Auto) Eos % (Auto) Baso % (Auto) Gran # Lymph # (Auto) Falls # (Auto) Eos # (Auto) Baso # (Auto) Neutrophils % (Manual) Band Neutrophils % Lymphocytes % (Manual) Monocytes % (Manual) Platelet Evaluation Sodium 131 L Potassium 3.9 Chloride 106 Carbon Dioxide 21 Anion Gap 8 L BUN 18 Creatinine 0.9 Est GFR ( Amer) > 60 Est GFR (Non-Af Amer) > 60 POC Glucose (mg/dL) Random Glucose 67 L Calcium 7.0 L Phosphorus 2.0 L Magnesium 1.5 L Total Bilirubin 0.4 AST 28 ALT 45 Alkaline Phosphatase 71 Total Protein 3.9 L Albumin 1.5 L Globulin 2.4 Albumin/Globulin Ratio 0.6 L Assessment & Plan - Assessment and Plan (Free Text) Plan: Assessment consider pancolitis from Crohn's disease, R/O Infectious causes acute CVA HTN DM COPD OA Plan continue Cefepime and Flagyl and follow up stool cultures; blood cx to be followed as well and stool for C. diff is negative follow up further plans of GI will monitor clinically
[2018-08-05 17:36] LABS: PH,URINE 5.5 (4.7-8.0); URINE BILIRUBIN NEGATIVE (NEGATIVE); URINE BLOOD MODERATE (NEGATIVE); URINE GLUCOSE (UA) NEGATIVE (NEGATIVE); URINE LEUKOCYTE ESTERASE MODERATE Leu/uL (NEGATIVE); URINE PROTEIN 30 mg/dL (<30 mg/dL); URINE UROBILINOGEN 0.2 E.U./dL (<1 E.U./dL)
[2018-08-05 17:38] LABS: URINE APPEARANCE SLIGHT-CLOUDY (CLEAR); URINE COLOR YELLOW (YELLOW)
[2018-08-05 17:41] LABS: URINE BACTERIA SMALL (NEG); URINE EPITHELIAL CELLS MANY /hpf (0-5); URINE RBC 15 - 20 /hpf (0-2)
[2018-08-05] MEDS ORDERED: Magnesium Sulfate 1 gm in D5W 1 GM/100 ML BAG IVPB ONE (18:43)
[2018-08-05] MEDS ORDERED: Potassium & Sodium Phosphate PO ONE (18:45)
--- NOTE | 2018-08-05 19:25 | CARD ---
APPROVED REPORT Date of service: 08/05/2018 EKG Measurement Heart [id number] HI [id number] [id number] <Conclusion> Sinus tachycardia with short HI with premature supraventricular complexes Incomplete RBBB ST & T wave abnormality, consider lateral ischemia Abnormal ECG
--- NOTE | 2018-08-05 19:53 | PN ---
DATE: 08/05/2018 CARDIOLOGY FOLLOWUP SUBJECTIVE: The patient is currently in atrial fibrillation with a heart rate in the 140s to 150s. OBJECTIVE: VITAL SIGNS: Blood pressure is stable. NECK: Negative JVD. LUNGS: Without rales. HEART: Reveals S1 and S2. EXTREMITIES: Without edema. LABORATORIES: Hemoglobin is 9.4. Chemistries, BUN and creatinine are unremarkable. IMPRESSION: 1. Cerebrovascular accident. 2. Altered mental status. 3. Etiology is likely atrial fibrillation. 4. Anemia. 5. Questionable gastrointestinal bleed in the past. PLAN: Given these findings, we will start the patient on p.o. Cardizem and we will restart her metoprolol. I have discussed with Dr. Quevedo. They need to discuss with GI about the risks and benefits of starting the patient on full dose anticoagulation. Currently, a bubble study would not be appropriate. Tello Talbert MD
[2018-08-06] MEDS: Pantoprazole 40 mg EC Tab PO SCH (05:27)
[2018-08-06] MEDS: metroNIDAZOLE IV 500 mg/100 ml 500 MG/100 ML BAG IVPB SCH ×3 (05:27→22:11)
[2018-08-06] MEDS: Cefepime 1gm in NS 100ml 1 GM/100 ML BAG IVPB SCH ×2 (05:27→10:48)
[2018-08-06 07:41] LABS: HEMOGLOBIN 10.5 g/dL (12.0-16.0); MEAN CELL VOLUME 87.6 fl (80.0-105.0); MEAN CORPUSCULAR HEMOGLOBIN 28.4 pg (25.0-35.0); MEAN CORPUSCULAR HGB CONC 32.4 g/dl (31.0-37.0); MEAN PLATELET VOLUME 8.7 fl (7.0-11.0); RBC 3.7 10^6/uL (3.5-6.1); RED CELL DISTRIBUTION WIDTH 19.5 % (11.5-14.5); WHITE BLOOD COUNT 5.2 10^3/uL (4.5-11.0)
[2018-08-06 07:47] LABS: ALB/GLOB RATIO 0.6 (1.1-1.8); ALBUMIN 1.6 g/dL (3.0-4.8); CALCIUM 7.6 mg/dL (8.4-10.5)
[2018-08-06] MEDS: Insulin Reg-MEDIUM-Coverage SC SCH ×4 (08:20→22:11)
--- NOTE | 2018-08-06 08:33 | PN ---
DATE: 08/06/2018 CARDIOLOGY FOLLOWUP SUBJECTIVE: The patient is awake, alert, without shortness of breath. PHYSICAL EXAMINATION: VITAL SIGNS: Blood pressure is 90/53, the heart rate is in the 70s, normal sinus rhythm. NECK: Negative JVD. LUNGS: Without rales. HEART: Reveals S1 and S2. EXTREMITIES: Without edema. LABORATORY DATA: Hemoglobin is 10.5. Chemistries: BUN and creatinine are unremarkable. IMPRESSION: 1. Cerebrovascular accident. 2. Paroxysmal atrial fibrillation, documented. 3. Anemia. 4. Questionable gastrointestinal bleed in the past. 5. Altered mental status. 6. [id number] myocardial infarction. Given these findings, from a cardiac perspective, the patient needs to be anticoagulated. I have post a question to her primary care doctor as well as Neurology about the safety of anticoagulation. Awaiting for comment for evaluation of full anticoagulation. Tello Talbert MD
[2018-08-06] MEDS ORDERED: Sodium Chloride 0.9% 1,000 ML IV SCH (08:45)
[2018-08-06] MEDS: Cholecalciferol 1,000 INTLU TAB PO SCH (09:25)
[2018-08-06] MEDS: Mesalamine ER Cap 500 MG PO SCH ×4 (09:25→22:11)
--- NOTE | 2018-08-06 11:38 | CP.PCM.PN ---
Subjective - Date & Time of Evaluation Date of Evaluation: 08/06/18 Time of Evaluation: 11:36 - Subjective Subjective: Mrs. Arango was seen and evaluated today at bedside. There were no acute events overnight. She was found to have atrial fibrillation. Objective - Vital Signs/Intake and Output Vital Signs (last 24 hours): Temp Pulse Resp BP Pulse Ox 98.1 F 71 20 90/53 L 98 08/06/18 06:00 08/06/18 06:00 08/06/18 06:00 08/06/18 06:00 08/05/18 06:00 Intake and Output: 08/06/18 08/06/18 06:59 18:59 Intake Total 640 Output Total 200 Balance 440 - Medications Medications: Current Medications Acetaminophen (Tylenol 325mg Tab) 650 mg PO Q6H PRN PRN Reason: Fever >100.4 F Last Admin: 08/05/18 14:04 Dose: 650 mg Aspirin (Aspirin Chewable) 81 mg PO DAILY [facility] Last Admin: 08/06/18 09:25 Dose: 81 mg Atorvastatin Calcium (Lipitor) 40 mg PO DIN [facility] Last Admin: 08/05/18 19:18 Dose: 40 mg Cholecalciferol (Vitamin D) 2,000 intlu PO DAILY [facility] Last Admin: 08/06/18 09:25 Dose: 2,000 intlu Diltiazem HCl (Cardizem) 60 mg PO TID [facility] Last Admin: 08/05/18 18:28 Dose: Not Given Metronidazole (Flagyl) 500 mg in 100 mls @ 100 mls/hr IVPB Q8 [facility]; Protocol Last Admin: 08/06/18 05:27 Dose: 100 mls/hr Sodium Chloride (Sodium Chloride 0.9%) 1,000 mls @ 40 mls/hr IV .Q24H [facility] Last Admin: 08/06/18 09:23 Dose: 40 mls/hr Iron Sucrose 100 mg/ Sodium (Chloride) 105 mls @ 210 mls/hr IVPB ONCE ONE Stop: 08/07/18 10:29 Cefepime HCl (Maxipime 1gm) 1 gm in 100 mls @ 100 mls/hr IVPB Q12 [facility]; Protocol Last Admin: 08/06/18 10:48 Dose: 100 mls/hr Insulin Human Regular (Humulin R Med) 0 units SC ACHS [facility]; Protocol Last Admin: 08/06/18 08:20 Dose: Not Given Lorazepam (Ativan) 0.25 mg PO Q6 PRN; 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 Reason: Anxiety Last Admin: 08/06/18 01:21 Dose: 0.25 mg Mesalamine (Rowasa Enema) 4 gm RC BID [facility] Last Admin: 08/06/18 10:49 Dose: 4 gm Mesalamine (Pentasa) 500 mg PO QID [facility] Last Admin: 08/06/18 09:25 Dose: 500 mg Ondansetron HCl (Zofran Inj) 4 mg IVP Q4H PRN PRN Reason: Nausea/Vomiting Last Admin: 08/06/18 06:39 Dose: 4 mg Pantoprazole Sodium (Protonix Ec Tab) 40 mg PO 0600 [facility] Last Admin: 08/06/18 05:27 Dose: 40 mg Quetiapine Fumarate (Seroquel) 12.5 mg PO HS PRN; 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 Reason: Agitation - Labs Labs: 08/06/18 07:20 08/06/18 07:20 PT 12.6 SECONDS (9.4-12.5) H 08/01/18 05:30 INR 1.09 08/01/18 05:30 APTT 36.0 Seconds (25.1-36.5) 08/01/18 05:30 - Neurological Exam Additional comments: Neurologically unchanged compared with previous examination. Assessment and Plan (1) Ischemic stroke Assessment & Plan: The location of the strokes is bilateral cortical and subcortical consistent with embolic etiology, likely due to atrial fibrillation. I recommend obtaining a repeat CT scan of the head without contrast and if there is no hemorrhagic conversion, then the patient should be started on Eliquis 5 mg BID for secondary stroke prevention. Input from GI is also appreciated considering there was previously concern for bleeding. Status: Acute
--- NOTE | 2018-08-06 13:33 | CP.PCM.PN ---
<David Sun - Last Filed: 08/06/18 13:25> Subjective - Date & Time of Evaluation Date of Evaluation: 08/06/18 Time of Evaluation: 07:00 - Subjective Subjective: David Sun, PGY1 Medicine Progress Note for Dr. Quevedo Patient was seen and examined at bedside this morning. Yesterday, patient had an episode of Afib with RVR and also fever (100.9). Discussed with patient about starting anticoagulation given new findings of Afib and elevated CHADVASC score. Patient was afebrile this morning. Today, patient's mental status has signi ficantly improved. She is AAOx3. She was complaining of mild suprapubic abdominal pain and nausea. She denies cp, sob, vomiting, numbness and tingling of extremities. Discussed with nurse that the patient has not had any recent bloody diarrhea. Patient was seen OOB to chair after interview. A full 12 point ROS was conducted and unremarkable except as stated above. Objective - Vital Signs/Intake and Output Vital Signs (last 24 hours): Temp Pulse Resp BP Pulse Ox 98.3 F 90 19 92/54 L 98 08/06/18 12:00 08/06/18 12:00 08/06/18 12:00 08/06/18 12:00 08/05/18 06:00 Intake and Output: 08/06/18 08/06/18 06:59 18:59 Intake Total 640 Output Total 200 Balance 440 - Medications Medications: Current Medications Acetaminophen (Tylenol 325mg Tab) 650 mg PO Q6H PRN PRN Reason: Fever >100.4 F Last Admin: 08/05/18 14:04 Dose: 650 mg Aspirin (Aspirin Chewable) 81 mg PO DAILY [facility] Last Admin: 08/06/18 09:25 Dose: 81 mg Atorvastatin Calcium (Lipitor) 40 mg PO DIN [facility] Last Admin: 08/05/18 19:18 Dose: 40 mg Cholecalciferol (Vitamin D) 2,000 intlu PO DAILY [facility] Last Admin: 08/06/18 09:25 Dose: 2,000 intlu Diltiazem HCl (Cardizem) 60 mg PO TID [facility] Last Admin: 08/05/18 18:28 Dose: Not Given Metronidazole (Flagyl) 500 mg in 100 mls @ 100 mls/hr IVPB Q8 [facility]; Protocol Last Admin: 08/06/18 05:27 Dose: 100 mls/hr Sodium Chloride (Sodium Chloride 0.9%) 1,000 mls @ 40 mls/hr IV .Q24H [facility] Last Admin: 08/06/18 09:23 Dose: 40 mls/hr Iron Sucrose 100 mg/ Sodium (Chloride) 105 mls @ 210 mls/hr IVPB ONCE ONE Stop: 08/07/18 10:29 Cefepime HCl (Maxipime 1gm) 1 gm in 100 mls @ 100 mls/hr IVPB Q12 [facility]; Protocol Last Admin: 08/06/18 10:48 Dose: 100 mls/hr Insulin Human Regular (Humulin R Med) 0 units SC ACHS [facility]; Protocol Last Admin: 08/06/18 12:08 Dose: Not Given Lorazepam (Ativan) 0.25 mg PO Q6 PRN; 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 Reason: Anxiety Last Admin: 08/06/18 01:21 Dose: 0.25 mg Mesalamine (Rowasa Enema) 4 gm RC BID [facility] Last Admin: 08/06/18 10:49 Dose: 4 gm Mesalamine (Pentasa) 500 mg PO QID [facility] Last Admin: 08/06/18 09:25 Dose: 500 mg Ondansetron HCl (Zofran Inj) 4 mg IVP Q4H PRN PRN Reason: Nausea/Vomiting Last Admin: 08/06/18 06:39 Dose: 4 mg Pantoprazole Sodium (Protonix Ec Tab) 40 mg PO 0600 [facility] Last Admin: 08/06/18 05:27 Dose: 40 mg Quetiapine Fumarate (Seroquel) 12.5 mg PO HS PRN; 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 Reason: Agitation - Labs Labs: 08/06/18 07:20 08/06/18 07:20 PT 12.6 SECONDS (9.4-12.5) H 08/01/18 05:30 INR 1.09 08/01/18 05:30 APTT 36.0 Seconds (25.1-36.5) 08/01/18 05:30 - Constitutional Appears: No Acute Distress - Head Exam Head Exam: ATRAUMATIC, NORMAL INSPECTION, NORMOCEPHALIC - Eye Exam Eye Exam: EOMI, Normal appearance, PERRL - ENT Exam ENT Exam: Mucous Membranes Moist, Normal Exam - Respiratory Exam Respiratory Exam: Clear to Ausculation Bilateral, NORMAL BREATHING PATTERN. absent: Rales, Rhonchi, Wheezes - Cardiovascular Exam Cardiovascular Exam: REGULAR RHYTHM, +S1, +S2. absent: Murmur - GI/Abdominal Exam GI & Abdominal Exam: Soft, Tenderness, Normal Bowel Sounds - Extremities Exam Extremities Exam: Normal Capillary Refill, Pedal Edema. absent: Calf Tenderness, Tenderness Additional comments: Lower extremity pitting edema +2 bilaterally. - Neurological Exam Neurological Exam: Alert, Awake, Oriented x3 - Skin Skin Exam: Dry, Intact, Normal Color, Warm Assessment and Plan - Assessment and Plan (Free Text) Assessment: Patient is a 77 y/o F with PMH of HTN, DM2, OA, COPD, Crohn's disease who presented to ED with family for AMS, delusions, and hallucinations x3 weeks in duration. Patient was admitted to the floor for Delirium 2/2 new watershed stroke. Patient is a candidate for TCU but also had suicidal intent during hosp ital course placed on 1:1, however patient has been cleared by psych and 1:1 precautions was discontinued. Patient had an episode of bloody diarrhea as well that was likely due to her history of Crohn's disease. Recently, patient had a new onset of Afib with RVR. Spoke with GI and Neuro, patient may receive anticoagulation (Eliquis) given high CHADVASC score; risks and benefits was discussed with the patient. Plan: Delirium 2/2 New Watershed Stroke - improving - Significantly improved mental status; patient is now AAOx3. - Cardio does not recommend PATRCIK at this time - patient restarted on aspirin - PT recommends acute rehab; continuing to hold plavix at this time - c/w bladder scan prn - PT recommends acute rehab. - Brain MRI: multiple small cortical and subcortical infarcts in both hemispheres (R>L). Infarcts could be due to hypotensive watershed infarct. - Head/Neck CTA: negative - Echo: EF 62%. Mod-severe aortic regurgitation. Mild pulmonary HTN. - Neuro recs appreciated - Psychiatry recs appreciated. Fever - septic workup - f/u blood cx - No fevers overnight; no leukocytosis - Patient exhibits signs of anasarca and given CXR findings, discontinue fluids. Once SBP > 100 mmHg, give patient 40mg IVP Lasix one time. Also start Lasix 20mg BID. - UA contaminated; follow up urine cx - CXR (08/05): infiltrate at the left lung base. - monitor for fevers New onset Afib with RVR - rate controlled - Discussed with GI and neuro about starting anticoagulation for Afib given high CHADVASC score, patient may receive anticoagulation with Eliquis. - Anticoagulation risks versus benefits were discussed with the patient. - c/w cardizem PO TID - Cardio recs appreciated - patient was restarted on aspirin - EKG (08/05): afib with RVR (132 bpm) Episode of Bloody Diarrhea likely due to Hx of Crohn's disease - c/w cefepime - monitor H/H - stable - As per GI, patient does not have clinically relevant GI bleed, c/w symptomatic management. Patient may be restarted on anticoagulation. - c/w mesalamine - CT A/P: segmental circumferential mucal thickening in proximal small bowel and mild distal descending colon and sigmoid colon. May represent acute, infectious, or inflammatory etiology. Severe diffuse anasarca. - GI recs appreciated - C. diff negative Suicidal intent - resolved - 1:1 precautions discontinued; cleared by psych - patient verbalized intent and wanted to use plastic knife to hurt herself () - d/w patient's daughter (Clark) at great length in regards to incident - Psych recs appreciated NSTEMI - elevated troponins 2/2 stroke - No cath at this time. Continue with medical management. - trops 0.18 on admission, repeat trops were .14 -- secondary to stroke Hx of HTN - BP meds held at this time due to new stroke - Home meds are Lopressor 25mg BID and norvasc 5mg daily Hx of DM II - avoid hypoglycemia - ISS DVT ppx: SCDs GI ppx: PTX Dispo: Continue to monitor on tele. Monitor for fevers. PT recommends acute rehab. Consider anticoagulation given patient's new finding of Afib with RVR. Case was discussed and reviewed with Attending Physician, Dr. Quevedo. <Baron Boles - Last Filed: 08/06/18 15:28> Objective - Vital Signs/Intake and Output Vital Signs (last 24 hours): Temp Pulse Resp BP Pulse Ox 98.3 F 90 19 89/53 L 98 08/06/18 12:00 11/14/18 12:00 08/06/18 12:00 08/06/18 15:01 08/05/18 06:00 Intake and Output: 08/06/18 08/06/18 06:59 18:59 Intake Total 640 Output Total 200 Balance 440 - Medications Medications: Current Medications Acetaminophen (Tylenol 325mg Tab) 650 mg PO Q6H PRN PRN Reason: Fever >100.4 F Last Admin: 08/05/18 14:04 Dose: 650 mg Apixaban (Eliquis) 5 mg PO BID [facility]; Protocol Aspirin (Aspirin Chewable) 81 mg PO DAILY [facility] Last Admin: 08/06/18 09:25 Dose: 81 mg Atorvastatin Calcium (Lipitor) 40 mg PO DIN [facility] Last Admin: 08/05/18 19:18 Dose: 40 mg Cholecalciferol (Vitamin D) 2,000 intlu PO DAILY [facility] Last Admin: 08/06/18 09:25 Dose: 2,000 intlu Diltiazem HCl (Cardizem) 60 mg PO TID [facility] Last Admin: 08/06/18 15:01 Dose: Not Given Metronidazole (Flagyl) 500 mg in 100 mls @ 100 mls/hr IVPB Q8 [facility]; Protocol Last Admin: 08/06/18 14:36 Dose: 100 mls/hr Sodium Chloride (Sodium Chloride 0.9%) 1,000 mls @ 40 mls/hr IV .Q24H [facility] Last Admin: 08/06/18 09:23 Dose: 40 mls/hr Iron Sucrose 100 mg/ Sodium (Chloride) 105 mls @ 210 mls/hr IVPB ONCE ONE Stop: 08/07/18 10:29 Cefepime HCl (Maxipime 1gm) 1 gm in 100 mls @ 100 mls/hr IVPB Q12 [facility]; Protocol Last Admin: 08/06/18 10:48 Dose: 100 mls/hr Insulin Human Regular (Humulin R Med) 0 units SC ACHS [facility]; Protocol Last Admin: 08/06/18 12:08 Dose: Not Given Lorazepam (Ativan) 0.25 mg PO Q6 PRN; 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 Reason: Anxiety Last Admin: 08/06/18 01:21 Dose: 0.25 mg Mesalamine (Rowasa Enema) 4 gm RC BID [facility] Last Admin: 08/06/18 10:49 Dose: 4 gm Mesalamine (Pentasa) 500 mg PO QID [facility] Last Admin: 08/06/18 14:37 Dose: 500 mg Ondansetron HCl (Zofran Inj) 4 mg IVP Q4H PRN PRN Reason: Nausea/Vomiting Last Admin: 08/06/18 06:39 Dose: 4 mg Pantoprazole Sodium (Protonix Ec Tab) 40 mg PO 0600 [facility] Last Admin: 08/06/18 05:27 Dose: 40 mg Quetiapine Fumarate (Seroquel) 12.5 mg PO HS PRN; 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 Reason: Agitation - Labs Labs: 08/06/18 07:20 08/06/18 07:20 PT 12.6 SECONDS (9.4-12.5) H 08/01/18 05:30 INR 1.09 08/01/18 05:30 APTT 36.0 Seconds (25.1-36.5) 08/01/18 05:30 Attending/Attestation - Attestation I have personally seen and examined this patient.: Yes I have fully participated in the care of the patient.: Yes I have reviewed all pertinent clinical information, including history, physical exam and plan: Yes Notes (Text): 08/06/18 15:23 Patient was seen and examined with medical billing coordinator. 77 year old female with past medical history of diabetes, hypertension and COPD was with altered mental status with delusions and hallucinations as per family. . MRI brain showed multiple small cortical / subcortical infarcts in both hemispheres, right greater than left. Patient is also found to have AF on telemetry. Hospital course was also complicated with diarrhea and episode of blood in stool over the weekend. Aspirin and plavix were held. CT abd/pelvis showed segmental circumferential mucal thickening in proximal small bowel and mild distal descending colon and sigmoid colon, may represent acute, infectious, or inflammatory etiology; severe diffuse anasarca. Patient was started on iv antibiotics. GI also started rowasa/pentasa. Patient hemoglobin remain stable.Case was discussed with cardiology. Patient has been cleared by Neurology and GI to be started on Anticoagulation to prevent recurrent stroke as CHADVASC score is high.She will be started on Apixiban. Risk and benefit was discussed with patient. Over the weekend she has episode of suicide intent with plastic knife. She was placed on 1:1 observation. Psychiatry follow up was appreciated. Mental status is improved.Patient is off 1.1 Leukopenia is improving, Overall prognosis is guarded
--- NOTE | 2018-08-06 13:43 | CT ---
Date of service: 08/06/2018 PROCEDURE: CT HEAD WITHOUT CONTRAST. HISTORY: r/o bleed COMPARISON: None available. TECHNIQUE: Axial computed tomography images were obtained through the head/brain without intravenous contrast. Radiation dose: Total exam DLP = 895.02 mGy-cm. This CT exam was performed using one or more of the following dose reduction techniques: Automated exposure control, adjustment of the mA and/or kV according to patient size, and/or use of iterative reconstruction technique. FINDINGS: HEMORRHAGE: No intracranial hemorrhage. BRAIN: No mass effect or edema. No atrophy or chronic microvascular ischemic changes. VENTRICLES: Unremarkable. No hydrocephalus. CALVARIUM: Unremarkable. PARANASAL SINUSES: Unremarkable as visualized. No significant inflammatory changes. MASTOID AIR CELLS: Unremarkable as visualized. No inflammatory changes. OTHER FINDINGS: None. IMPRESSION: No acute findings
--- NOTE | 2018-08-06 16:17 | PN ---
DATE: 08/06/2018 SUBJECTIVE: The patient was followed up today. The patient presented with minimal improvement with her presentation. The patient today knows that where she is. The patient said that she is in [facility]. Besides that, there are no acute changes. The patient's vital signs seems to be stable. Temperature 98.3, pulse is 90, blood pressure 89/53, respiration 19, oxygen saturation is 97. Medications reviewed. Labs reviewed, most recent was from today. WBC cells within normal limits, 5.2 today. There are no signs of granulocytosis. Yesterday, granulocytes level was 2.04. Microbiology reviewed. Reports reviewed. MENTAL STATUS EXAMINATION: The patient presented to be alert. No agitation or aggression. Intermittent eye contact. Mood described as fine. Affect was constricted today. Thought process seems to be disorganized at times. Yesterday, the patient had word salad. Today, the patient knows where she is. Insight and judgment seems to be limited. The patient had psychotic symptoms. The patient thought that her daughter is not her true daughter. IMPRESSION: The patient had bilateral cortical and subcortical strokes, which is consistent with embolic etiology. The patient atrial fibrillation. The patient also was in delirium stage, which is related to the medical issues as well as stroke. Psychotic symptoms are related to that as well. PLAN: The patient is off antipsychotic medication. The patient does not have any aggression or agitation. The patient has aphasia, has difficulty to express herself, but Neurology team is on board. Medical team is on board. The patient is waiting for subacute rehab placement. There is no recommendation from the psychiatric standpoint. This health technical writer will sign off. Should you have any questions, give me a call back. Thank you very much for letting me participate in the care of your patient. Maria Eugenia Jiang MD
[2018-08-07 01:08] LABS: BASO # 0.01 K/mm3 (0.0-2.0); BASO % 0.2 % (0.0-3.0); EOS % 0.4 % (1.5-5.0); GRAN # 4.14 (1.4-6.5); GRAN % 78.5 % (50.0-68.0); HEMOGLOBIN 10.2 g/dL (12.0-16.0); LYMPH # 0.6 (1.2-3.4); LYMPH % 10.8 % (22.0-35.0); MEAN CELL VOLUME 85.7 fl (80.0-105.0); MEAN CORPUSCULAR HEMOGLOBIN 29.1 pg (25.0-35.0); MEAN PLATELET VOLUME 9.1 fl (7.0-11.0); MONO # 0.5 (0.1-0.6); MONO % 10.1 % (1.0-6.0); PLATELET COUNT 102 10^3/uL (120.0-450.0); RED CELL DISTRIBUTION WIDTH 19.1 % (11.5-14.5); WHITE BLOOD COUNT 5.3 10^3/uL (4.5-11.0)
[2018-08-07] MEDS: Cefepime 1gm in NS 100ml 1 GM/100 ML BAG IVPB SCH ×3 (01:20→21:29)
[2018-08-07 03:25] LABS: NEUTROPHIL 81 % (50.0-70.0)
[2018-08-07 03:26] LABS: ANISOCYTOSIS SLIGHT; LYMPHOCYTE 2 % (22.0-35.0); MONOCYTE 1 % (1.0-6.0); PLATELET ESTIMATE LOW (NORMAL); POIKILOCYTOSIS SLIGHT; TOXIC GRANULATION 1+
[2018-08-07 03:30] LABS: BAND 16 % (0-2)
[2018-08-07] MEDS: metroNIDAZOLE IV 500 mg/100 ml 500 MG/100 ML BAG IVPB SCH ×3 (06:17→21:30)
[2018-08-07] MEDS: Pantoprazole 40 mg EC Tab PO SCH (06:19)
--- NOTE | 2018-08-07 07:49 | CP.PCM.PN ---
<Teresa Lock - Last Filed: 08/07/18 08:23> Subjective - Date & Time of Evaluation Date of Evaluation: 08/07/18 Time of Evaluation: 07:45 - Subjective Subjective: Gastroenterology Fellow/PGY6 Progress Note Patient had to large bloody bowel movements overnight confirmed by nursing. Rosmery held. Patient denies abdominal pain or vomiting. A 12-point review of systems negative except for as above. Objective - Vital Signs/Intake and Output Vital Signs (last 24 hours): Temp Pulse Resp BP Pulse Ox 98.7 F 105 H 20 99/50 L 95 08/07/18 06:00 08/07/18 06:00 08/07/18 06:00 08/07/18 06:00 08/07/18 06:00 Intake and Output: 08/07/18 08/07/18 06:59 18:59 Intake Total 780 Balance 780 - Medications Medications: Current Medications Acetaminophen (Tylenol 325mg Tab) 650 mg PO Q6H PRN PRN Reason: Fever >100.4 F Last Admin: 08/05/18 14:04 Dose: 650 mg Apixaban (Eliquis) 5 mg PO BID [facility]; Protocol Last Admin: 08/06/18 17:09 Dose: 5 mg Aspirin (Aspirin Chewable) 81 mg PO DAILY [facility] Last Admin: 08/06/18 09:25 Dose: 81 mg Atorvastatin Calcium (Lipitor) 40 mg PO DIN [facility] Last Admin: 08/06/18 17:09 Dose: 40 mg Cholecalciferol (Vitamin D) 2,000 intlu PO DAILY [facility] Last Admin: 08/06/18 09:25 Dose: 2,000 intlu Diltiazem HCl (Cardizem) 60 mg PO TID [facility] Last Admin: 08/06/18 18:08 Dose: Not Given Metronidazole (Flagyl) 500 mg in 100 mls @ 100 mls/hr IVPB Q8 [facility]; Protocol Last Admin: 08/07/18 06:17 Dose: 100 mls/hr Sodium Chloride (Sodium Chloride 0.9%) 1,000 mls @ 40 mls/hr IV .Q24H [facility] Last Admin: 08/06/18 09:23 Dose: 40 mls/hr Iron Sucrose 100 mg/ Sodium (Chloride) 105 mls @ 210 mls/hr IVPB ONCE ONE Stop: 08/07/18 10:29 Cefepime HCl (Maxipime 1gm) 1 gm in 100 mls @ 100 mls/hr IVPB Q12 [facility]; Protocol Last Admin: 08/07/18 01:20 Dose: 100 mls/hr Insulin Human Regular (Humulin R Med) 0 units SC ACHS [facility]; Protocol Last Admin: 08/06/18 22:11 Dose: Not Given Lorazepam (Ativan) 0.25 mg PO Q6 PRN; 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 Reason: Anxiety Last Admin: 08/07/18 00:19 Dose: 0.25 mg Mesalamine (Rowasa Enema) 4 gm RC BID [facility] Last Admin: 08/06/18 18:09 Dose: Not Given Mesalamine (Pentasa) 500 mg PO QID [facility] Last Admin: 08/06/18 22:11 Dose: 500 mg Ondansetron HCl (Zofran Inj) 4 mg IVP Q4H PRN PRN Reason: Nausea/Vomiting Last Admin: 08/06/18 06:39 Dose: 4 mg Pantoprazole Sodium (Protonix Ec Tab) 40 mg PO 0600 [facility] Last Admin: 08/07/18 06:19 Dose: 40 mg Quetiapine Fumarate (Seroquel) 12.5 mg PO HS PRN; 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 Reason: Agitation Last Admin: 08/06/18 23:08 Dose: 12.5 mg - Labs Labs: 08/06/18 23:55 08/06/18 07:20 PT 12.6 SECONDS (9.4-12.5) H 08/01/18 05:30 INR 1.09 08/01/18 05:30 APTT 36.0 Seconds (25.1-36.5) 08/01/18 05:30 - Constitutional Appears: Non-toxic, No Acute Distress - Head Exam Head Exam: ATRAUMATIC, NORMOCEPHALIC - Eye Exam Eye Exam: EOMI, PERRL. absent: Scleral icterus Pupil Exam: PERRL. absent: Miosis, Mydriatic - ENT Exam ENT Exam: Mucous Membranes Moist, Normal Oropharynx - Neck Exam Neck Exam: Full ROM, Normal Inspection - Respiratory Exam Respiratory Exam: Clear to Ausculation Bilateral. absent: Rales, Rhonchi, Wheezes - Cardiovascular Exam Cardiovascular Exam: RRR, +S1, +S2. absent: Gallop, Rubs - GI/Abdominal Exam GI & Abdominal Exam: Soft, Normal Bowel Sounds. absent: Distended, Firm, Guarding, Rigid, Tenderness, Organomegaly, Rebound - Extremities Exam Extremities Exam: Normal Inspection, Pedal Edema - Neurological Exam Neurological Exam: Alert, Awake - Psychiatric Exam Psychiatric exam: Normal Affect, Normal Mood - Skin Skin Exam: Dry, Intact, Normal Color, Warm Assessment and Plan - Assessment and Plan (Free Text) Assessment: 77 year old female with PMH of HTN, DM, osteoarthritis, COPD and suspected Crohn's Disease 2014 (not currently on maintenance therapy) presenting with altered mental status. Active treatment of NSTEMI< bilateral ischemic CVAs on ASA with Plavix held / concern for diarrhea with hematochezia. CT A/P PO contrast showed thickening of small bowel, descending, and recto-sigmoid colon. 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 Plan: -continue to hold Eliquis -H/H stable -plan for flexible sigmoidoscopy tomorrow -discussed with primary team-given acute CVAs, require neurology clearance for anesthesia prior to considering scheduling for EGD -pending read of bleeding scan -continue Rowasa enema and Mesalamine 500mg QID -on cefepime and flagyl -clear liquid diet today, NPO after midnight -ordered Mg citrate once -will follow clinical course <Pamela,Kosalinal V - Last Filed: 08/07/18 23:18> Objective - Vital Signs/Intake and Output Vital Signs (last 24 hours): Temp Pulse Resp BP Pulse Ox 98.2 F 82 22 96/48 L 95 08/07/18 22:13 08/07/18 22:13 08/07/18 22:13 08/07/18 22:13 08/07/18 19:30 Intake and Output: 08/07/18 08/08/18 18:59 06:59 Intake Total 360 375 Output Total 30 Balance 330 375 - Medications Medications: Current Medications Acetaminophen (Tylenol 325mg Tab) 650 mg PO Q6H PRN PRN Reason: Fever >100.4 F Last Admin: 08/05/18 14:04 Dose: 650 mg Apixaban (Eliquis) 5 mg PO BID [facility]; Protocol Last Admin: 08/06/18 17:09 Dose: 5 mg Aspirin (Aspirin Chewable) 81 mg PO DAILY [facility] Last Admin: 08/07/18 10:42 Dose: Not Given Atorvastatin Calcium (Lipitor) 40 mg PO DIN [facility] Last Admin: 08/07/18 17:36 Dose: 40 mg Cholecalciferol (Vitamin D) 2,000 intlu PO DAILY [facility] Last Admin: 08/07/18 10:46 Dose: Not Given Diltiazem HCl (Cardizem) 60 mg PO TID [facility] Last Admin: 08/07/18 17:51 Dose: Not Given Metronidazole (Flagyl) 500 mg in 100 mls @ 100 mls/hr IVPB Q8 [facility]; Protocol Last Admin: 08/07/18 21:30 Dose: 100 mls/hr Cefepime HCl (Maxipime 1gm) 1 gm in 100 mls @ 100 mls/hr IVPB Q12 [facility]; Protocol Last Admin: 08/07/18 21:29 Dose: 100 mls/hr Insulin Human Regular (Humulin R Med) 0 units SC ACHS [facility]; Protocol Last Admin: 08/07/18 22:14 Dose: Not Given Lorazepam (Ativan) 0.25 mg PO Q6 PRN; 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 Reason: Anxiety Last Admin: 08/07/18 00:19 Dose: 0.25 mg Mesalamine (Rowasa Enema) 4 gm RC BID [facility] Last Admin: 08/07/18 18:46 Dose: 4 gm Mesalamine (Pentasa) 500 mg PO QID [facility] Last Admin: 08/07/18 21:29 Dose: Not Given Metoprolol Tartrate (Lopressor) 5 mg IVP ONCE PRN PRN Reason: Other Ondansetron HCl (Zofran Inj) 4 mg IVP Q4H PRN PRN Reason: Nausea/Vomiting Last Admin: 08/06/18 06:39 Dose: 4 mg Pantoprazole Sodium (Protonix Ec Tab) 40 mg PO 0600 [facility] Last Admin: 08/07/18 06:19 Dose: 40 mg Quetiapine Fumarate (Seroquel) 12.5 mg PO HS PRN; 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 Reason: Agitation Last Admin: 08/06/18 23:08 Dose: 12.5 mg - Labs Labs: 08/07/18 14:00 08/07/18 08:50 PT 28.2 SECONDS (9.4-12.5) H 08/07/18 09:00 INR 2.41 08/07/18 09:00 APTT 36.0 Seconds (25.1-36.5) 08/01/18 05:30 Attending/Attestation - Attestation I have personally seen and examined this patient.: Yes I have fully participated in the care of the patient.: Yes I have reviewed all pertinent clinical information, including history, physical exam and plan: Yes
[2018-08-07] MEDS: Insulin Reg-MEDIUM-Coverage SC SCH ×4 (08:10→22:14)
[2018-08-07] MEDS ORDERED: Magnesium Citrate Oral SOL (300 ml) PO ONE (08:33)
[2018-08-07 09:26] LABS: HEMOGLOBIN 8.9 g/dL (12.0-16.0); MEAN CELL VOLUME 86.4 fl (80.0-105.0); MEAN CORPUSCULAR HEMOGLOBIN 28.8 pg (25.0-35.0); MEAN CORPUSCULAR HGB CONC 33.3 g/dl (31.0-37.0); RBC 3.09 10^6/uL (3.5-6.1); RED CELL DISTRIBUTION WIDTH 19.3 % (11.5-14.5); WHITE BLOOD COUNT 5.5 10^3/uL (4.5-11.0)
[2018-08-07 09:28] LABS: INR 2.41; PROTHROMBIN TIME 28.2 SECONDS (9.4-12.5)
[2018-08-07 09:42] LABS: ALB/GLOB RATIO 0.6 (1.1-1.8); ALBUMIN 1.4 g/dL (3.0-4.8); CALCIUM 7.6 mg/dL (8.4-10.5)
[2018-08-07] MEDS: Mesalamine ER Cap 500 MG PO SCH ×4 (10:45→21:29)
[2018-08-07] MEDS: Cholecalciferol 1,000 INTLU TAB PO SCH (10:46)
[2018-08-07] MEDS ORDERED: Metoprolol 1 mg/ml Inj IVP PRN (11:28)
--- NOTE | 2018-08-07 11:54 | NM ---
Date of service: 08/06/2018 PROCEDURE: Nuclear medicine gastrointestinal bleeding scan. HISTORY: rectal bleed COMPARISON: None available. TECHNIQUE: 4ccof patient blood was withdrawn and mixed with 33.0mCi of technetium ultra tagged. Images of the abdomen and pelvis were obtained in the anterior and posterior projection at 1 min intervals over a period of 45 min. FINDINGS: No abnormal extravasation of tracer was observed throughout the exam to indicate active bleeding within or outside the gastrointestinal tract. Physiologic activity was seen in the heart, liver, spleen and blood vessels. The report concurs with the preliminary [facility] report IMPRESSION: No evidence of active gastrointestinal bleeding.
[2018-08-07 11:55] LABS: HEMOGLOBIN 9.1 g/dL (12.0-16.0); MEAN CELL VOLUME 86.3 fl (80.0-105.0); MEAN CORPUSCULAR HEMOGLOBIN 28.9 pg (25.0-35.0); MEAN CORPUSCULAR HGB CONC 33.5 g/dl (31.0-37.0); MEAN PLATELET VOLUME 8.8 fl (7.0-11.0); RBC 3.15 10^6/uL (3.5-6.1); RED CELL DISTRIBUTION WIDTH 19.3 % (11.5-14.5); WHITE BLOOD COUNT 6.1 10^3/uL (4.5-11.0)
--- NOTE | 2018-08-07 12:29 | CP.PCM.PN ---
<David Sun - Last Filed: 08/07/18 14:21> Subjective - Date & Time of Evaluation Date of Evaluation: 08/07/18 Time of Evaluation: 07:00 - Subjective Subjective: David Sun PGY1 Medicine Progress Note for Dr. Boles Patient was seen and examined at bedside this morning. Patient appeared to be lethargic in the morning and was not providing an appropriate ROS during interview. After speaking to nursing staff during sign out, patient was apparently agitated last night and given ativan. This morning, her vital signs show tachycardia and BP was 99/50. Nursing staff also mentioned that the patient had passed large bloody clots. Discussed with GI after interview. Objective - Vital Signs/Intake and Output Vital Signs (last 24 hours): Temp Pulse Resp BP Pulse Ox 98.2 F 58 L 18 116/90 95 08/07/18 12:00 08/07/18 12:00 08/07/18 12:00 08/07/18 12:00 08/07/18 06:00 Intake and Output: 08/07/18 08/07/18 06:59 18:59 Intake Total 780 Balance 780 - Medications Medications: Current Medications Acetaminophen (Tylenol 325mg Tab) 650 mg PO Q6H PRN PRN Reason: Fever >100.4 F Last Admin: 08/05/18 14:04 Dose: 650 mg Apixaban (Eliquis) 5 mg PO BID [facility]; Protocol Last Admin: 08/06/18 17:09 Dose: 5 mg Aspirin (Aspirin Chewable) 81 mg PO DAILY [facility] Last Admin: 08/07/18 10:42 Dose: Not Given Atorvastatin Calcium (Lipitor) 40 mg PO DIN [facility] Last Admin: 08/06/18 17:09 Dose: 40 mg Cholecalciferol (Vitamin D) 2,000 intlu PO DAILY [facility] Last Admin: 08/07/18 10:46 Dose: Not Given Diltiazem HCl (Cardizem) 60 mg PO TID [facility] Last Admin: 08/07/18 10:46 Dose: Not Given Metronidazole (Flagyl) 500 mg in 100 mls @ 100 mls/hr IVPB Q8 [facility]; Protocol Last Admin: 08/07/18 06:17 Dose: 100 mls/hr Cefepime HCl (Maxipime 1gm) 1 gm in 100 mls @ 100 mls/hr IVPB Q12 [facility]; Protocol Last Admin: 08/07/18 10:43 Dose: 100 mls/hr Insulin Human Regular (Humulin R Med) 0 units SC ACHS [facility]; Protocol Last Admin: 08/07/18 08:10 Dose: Not Given Lorazepam (Ativan) 0.25 mg PO Q6 PRN; 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 Reason: Anxiety Last Admin: 08/07/18 00:19 Dose: 0.25 mg Mesalamine (Rowasa Enema) 4 gm RC BID [facility] Last Admin: 08/07/18 10:45 Dose: Not Given Mesalamine (Pentasa) 500 mg PO QID [facility] Last Admin: 08/07/18 10:45 Dose: Not Given Metoprolol Tartrate (Lopressor) 5 mg IVP ONCE PRN PRN Reason: Other Ondansetron HCl (Zofran Inj) 4 mg IVP Q4H PRN PRN Reason: Nausea/Vomiting Last Admin: 08/06/18 06:39 Dose: 4 mg Pantoprazole Sodium (Protonix Ec Tab) 40 mg PO 0600 [facility] Last Admin: 08/07/18 06:19 Dose: 40 mg Quetiapine Fumarate (Seroquel) 12.5 mg PO HS PRN; 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 Reason: Agitation Last Admin: 08/06/18 23:08 Dose: 12.5 mg - Labs Labs: 08/07/18 11:40 08/07/18 08:50 PT 28.2 SECONDS (9.4-12.5) H 08/07/18 09:00 INR 2.41 08/07/18 09:00 APTT 36.0 Seconds (25.1-36.5) 08/01/18 05:30 - Constitutional Appears: Other (Lethargic, responds to verbal stimuli and sternal rub. ) - Head Exam Head Exam: ATRAUMATIC, NORMAL INSPECTION, NORMOCEPHALIC - Eye Exam Eye Exam: EOMI, Normal appearance, PERRL - ENT Exam ENT Exam: Mucous Membranes Moist, Normal Exam - Respiratory Exam Respiratory Exam: Clear to Ausculation Bilateral, NORMAL BREATHING PATTERN. absent: Rales, Rhonchi, Wheezes - Cardiovascular Exam Cardiovascular Exam: REGULAR RHYTHM, +S1, +S2. absent: Murmur - GI/Abdominal Exam GI & Abdominal Exam: Soft, Normal Bowel Sounds. absent: Tenderness - Extremities Exam Extremities Exam: Normal Capillary Refill. absent: Calf Tenderness, Pedal Edema Additional comments: Swelling at the lower ext bilaterally; +2 pitting edema bilateral LE - Skin Skin Exam: Dry, Intact, Normal Color, Warm Assessment and Plan - Assessment and Plan (Free Text) Assessment: Patient is a 77 y/o F with PMH of HTN, DM2, OA, COPD, Crohn's disease who presented to ED with family for AMS, delusions, and hallucinations x3 weeks in duration. Patient was admitted to the floor for Delirium 2/2 new watershed stroke. Patient is a candidate for TCU but also had suicidal intent during hos pital course placed on 1:1, however patient has been cleared by psych and 1:1 precautions was discontinued. Patient also had episodes of GI bleed. Recently, patient had a new onset of Afib with RVR. Confirmed with GI and Neuro to start patient on anticoagulation (Eliquis) given high CHADVASC score, however patient now has active GI bleed. ICU has been consulted. Plan: Delirium 2/2 New Watershed Stroke - Patient has recent episodes of agitation; given ativan IV overnight; patient lethargic this morning - Cardio does not recommend PATRICK at this time - PT recommends acute rehab - Brain MRI: multiple small cortical and subcortical infarcts in both hemispheres (R>L). Infarcts could be due to hypotensive watershed infarct. - Head/Neck CTA: negative - Echo: EF 62%. Mod-severe aortic regurgitation. Mild pulmonary HTN. - Neuro recs appreciated - Psychiatry recs appreciated Active GI Bleed - Hgb drop from 10.2 to 8.9; patient is actively bleeding from rectum, pending x2 pRBC transfusion - ICU consulted. Patient will be transferred to the unit. Follow up recommendations. - GI plans to do flex sig and endoscopy to determine source of bleed - monitor H/H q8 - Hold anticoagulation at this time - c/w cefepime - c/w mesalamine; Hx of Crohn's disease - CT A/P: segmental circumferential mucal thickening in proximal small bowel and mild distal descending colon and sigmoid colon. May represent acute, infectious, or inflammatory etiology. Severe diffuse anasarca. - GI recs appreciated New onset Afib with RVR - rate controlled - Hold anticoagulation; Eliquis and ASA held at this time - d/w GI and neuro about starting anticoagulation for Afib (CHADVASC score 7 however HAS-BLED score is 5) - c/w cardizem PO TID - Lopressor 5mg IVP prn for HR > 115 with holding parameters - Cardio recs appreciated - EKG (08/05): afib with RVR (132 bpm) Fever - septic workup - f/u blood cx - No fevers overnight; no leukocytosis - CXR (08/05): infiltrate at the left lung base. - monitor for fevers Suicidal intent - resolved - 1:1 precautions discontinued; cleared by psych - patient verbalized intent and wanted to use plastic knife to hurt herself (08/02) - Psych recs appreciated NSTEMI - elevated troponins 2/ stroke - No cath at this time. Continue with medical management. - trops 0.18 on admission, repeat trops were .14 -- secondary to stroke Hx of HTN - BP meds held at this time due to new stroke - Home meds are Lopressor 25mg BID and norvasc 5mg daily Hx of DM II - avoid hypoglycemia - ISS DVT ppx: SCDs GI ppx: PTX PT: recommends acute rehab Dispo: Patient has active bleeding; anticoagulation held and ICU was consulted. GI wants to do flex sig and endoscopy to determine source of bleed. Case was discussed and reviewed with Attending Physician, Dr. Boles <Baron Boles - Last Filed: 08/07/18 15:23> Objective - Vital Signs/Intake and Output Vital Signs (last 24 hours): Temp Pulse Resp BP Pulse Ox 98.2 F 58 L 18 116/90 95 08/07/18 12:00 08/07/18 12:00 08/07/18 12:00 08/07/18 12:00 08/07/18 06:00 Intake and Output: 08/07/18 08/07/18 06:59 18:59 Intake Total 780 Balance 780 - Medications Medications: Current Medications Acetaminophen (Tylenol 325mg Tab) 650 mg PO Q6H PRN PRN Reason: Fever >100.4 F Last Admin: 08/05/18 14:04 Dose: 650 mg Apixaban (Eliquis) 5 mg PO BID [facility]; Protocol Last Admin: 08/06/18 17:09 Dose: 5 mg Aspirin (Aspirin Chewable) 81 mg PO DAILY [facility] Last Admin: 08/07/18 10:42 Dose: Not Given Atorvastatin Calcium (Lipitor) 40 mg PO DIN [facility] Last Admin: 08/06/18 17:09 Dose: 40 mg Cholecalciferol (Vitamin D) 2,000 intlu PO DAILY [facility] Last Admin: 08/07/18 10:46 Dose: Not Given Diltiazem HCl (Cardizem) 60 mg PO TID [facility] Last Admin: 08/07/18 14:25 Dose: Not Given Metronidazole (Flagyl) 500 mg in 100 mls @ 100 mls/hr IVPB Q8 [facility]; Protocol Last Admin: 08/07/18 14:25 Dose: 100 mls/hr Cefepime HCl (Maxipime 1gm) 1 gm in 100 mls @ 100 mls/hr IVPB Q12 [facility]; Protocol Last Admin: 08/07/18 10:43 Dose: 100 mls/hr Insulin Human Regular (Humulin R Med) 0 units SC ACHS [facility]; Protocol Last Admin: 08/07/18 14:26 Dose: Not Given Lorazepam (Ativan) 0.25 mg PO Q6 PRN; 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 Reason: Anxiety Last Admin: 08/07/18 00:19 Dose: 0.25 mg Mesalamine (Rowasa Enema) 4 gm RC BID [facility] Last Admin: 08/07/18 10:45 Dose: Not Given Mesalamine (Pentasa) 500 mg PO QID [facility] Last Admin: 08/07/18 14:31 Dose: Not Given Metoprolol Tartrate (Lopressor) 5 mg IVP ONCE PRN PRN Reason: Other Ondansetron HCl (Zofran Inj) 4 mg IVP Q4H PRN PRN Reason: Nausea/Vomiting Last Admin: 08/06/18 06:39 Dose: 4 mg Pantoprazole Sodium (Protonix Ec Tab) 40 mg PO 0600 [facility] Last Admin: 08/07/18 06:19 Dose: 40 mg Quetiapine Fumarate (Seroquel) 12.5 mg PO HS PRN; 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 Reason: Agitation Last Admin: 08/06/18 23:08 Dose: 12.5 mg - Labs Labs: 08/07/18 14:00 08/07/18 08:50 PT 28.2 SECONDS (9.4-12.5) H 08/07/18 09:00 INR 2.41 08/07/18 09:00 APTT 36.0 Seconds (25.1-36.5) 08/01/18 05:30 Attending/Attestation - Attestation I have personally seen and examined this patient.: Yes I have fully participated in the care of the patient.: Yes I have reviewed all pertinent clinical information, including history, physical exam and plan: Yes Notes (Text): 08/07/18 15:19 patient was seen and examined with internist medical doctor md. 77 year old female with past medical history of diabetes, hypertension and COPD was with altered mental status with delusions and hallucinations as per family. . MRI brain showed multiple small cortical / subcortical infarcts in both hemispheres, right greater than left. Patient was found to have AF on telemetry.Hospital course was also complicated with diarrhea and episode of blood in stool over the weekend. Aspirin and plavix were held. CT abd/pelvis showed segmental circumferential mucal thickening in proximal small bowel and mild distal descending colon and sigmoid colon, may represent acute, infectious, or inflammatory etiology; severe diffuse anasarca. Patient was started on iv antibiotics. GI also started rowasa/pentasa. Patient was restarted on Aspirin 2 days back, hemoglobin remain stable After discussion with GI/Neurology, Patient was started on Apixiban yesterday as hemoglobin was stable, however patient had lower GI bleeding last night, Apixiban is discontinued, Bleeding scan is negative, Hemoglobin dropped to 9.1 from 10.5.GI evaluation is appreciated, Plan for sigmoidoscopy /Colonoscopy .Patient has bandemia , will continue IV antibiotics as per ID .We will also check Procalcitonin level. Patient is transferred to ICU.. Mental status is waxing , has intermittent agitation on PRN Ativan. Prognosis is guarded.
--- NOTE | 2018-08-07 13:55 | CP.PCM.CON ---
<Asa Baldwin - Last Filed: 08/07/18 14:15> History of Present Illness - History of Present Illness History of Present Illness: Asa Baldwin D.O. 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 ICU consultation was requested as patient has been having multiple episodes of hematochezia. Patient was seen and examined at bedside along with nursing at bedside. Patient is delirious with underlying dementia at this time and is clutching her eyes tightly and does not respond to questions. Patient also not very cooperative with physical exam. Per nursing staff, this is currently her 4th bloody bowel movement today. Overall appears uncomfortable. Review of Systems - Review of Systems Systems not reviewed;Unavailable: Altered Mental Status Past Patient History - Infectious Disease Hx of Infectious Diseases: None - Tetanus Immunizations Tetanus Immunization: Unknown - Past Social History Smoking Status: Former Smoker - CARDIAC Hx Hypertension: Yes - PULMONARY Hx Chronic Obstructive Pulmonary Disease (COPD): Yes - NEUROLOGICAL Hx Neurological Disorder: Yes (paranoid, delusional) - HEENT Hx HEENT Problems: No - RENAL Hx Chronic Kidney Disease: No - ENDOCRINE/METABOLIC Hx Diabetes Mellitus Type 2: Yes - HEMATOLOGICAL/ONCOLOGICAL Hx Blood Disorders: No - INTEGUMENTARY Hx Dermatological Problems: No - MUSCULOSKELETAL/RHEUMATOLOGICAL Hx Arthritis: Yes - GASTROINTESTINAL Hx Gastrointestinal Disorders: No - GENITOURINARY/GYNECOLOGICAL Hx Genitourinary Disorders: No - PSYCHIATRIC Hx Psychophysiologic Disorder: Yes Hx Emotional Abuse: No Hx Paranoia: Yes (acute) Hx Physical Abuse: No - SURGICAL HISTORY Hx Surgeries: Yes Hx Orthopedic Surgery: Yes (LEFT KNEE) - ANESTHESIA Hx Anesthesia Reactions: No Hx Malignant Hyperthermia: No Meds Allergies/Adverse Reactions: Allergies Allergy/AdvReac Type Severity Reaction Status Date / Time No Known Allergies Allergy Verified 02/12/14 12:07 - Medications Medications: Current Medications Acetaminophen (Tylenol 325mg Tab) 650 mg PO Q6H PRN PRN Reason: Fever >100.4 F Last Admin: 08/05/18 14:04 Dose: 650 mg Apixaban (Eliquis) 5 mg PO BID [facility]; Protocol Last Admin: 08/06/18 17:09 Dose: 5 mg Aspirin (Aspirin Chewable) 81 mg PO DAILY [facility] Last Admin: 08/07/18 10:42 Dose: Not Given Atorvastatin Calcium (Lipitor) 40 mg PO DIN [facility] Last Admin: 08/06/18 17:09 Dose: 40 mg Cholecalciferol (Vitamin D) 2,000 intlu PO DAILY [facility] Last Admin: 08/07/18 10:46 Dose: Not Given Diltiazem HCl (Cardizem) 60 mg PO TID [facility] Last Admin: 08/07/18 10:46 Dose: Not Given Metronidazole (Flagyl) 500 mg in 100 mls @ 100 mls/hr IVPB Q8 [facility]; Protocol Last Admin: 08/07/18 06:17 Dose: 100 mls/hr Cefepime HCl (Maxipime 1gm) 1 gm in 100 mls @ 100 mls/hr IVPB Q12 [facility]; Protocol Last Admin: 08/07/18 10:43 Dose: 100 mls/hr Insulin Human Regular (Humulin R Med) 0 units SC ACHS [facility]; Protocol Last Admin: 08/07/18 08:10 Dose: Not Given Lorazepam (Ativan) 0.25 mg PO Q6 PRN; 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 Reason: Anxiety Last Admin: 08/07/18 00:19 Dose: 0.25 mg Mesalamine (Rowasa Enema) 4 gm RC BID [facility] Last Admin: 08/07/18 10:45 Dose: Not Given Mesalamine (Pentasa) 500 mg PO QID [facility] Last Admin: 08/07/18 10:45 Dose: Not Given Metoprolol Tartrate (Lopressor) 5 mg IVP ONCE PRN PRN Reason: Other Ondansetron HCl (Zofran Inj) 4 mg IVP Q4H PRN PRN Reason: Nausea/Vomiting Last Admin: 08/06/18 06:39 Dose: 4 mg Pantoprazole Sodium (Protonix Ec Tab) 40 mg PO 0600 [facility] Last Admin: 08/07/18 06:19 Dose: 40 mg Quetiapine Fumarate (Seroquel) 12.5 mg PO HS PRN; 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 Reason: Agitation Last Admin: 08/06/18 23:08 Dose: 12.5 mg Physical Exam - Constitutional Appears: Unkempt, Combative, Agitated, Chronically Ill Additional comments: obese, ill appearing, uncooperative - Head Exam Head Exam: ATRAUMATIC, NORMOCEPHALIC - Eye Exam Additional comments: tried to examine, patient clutching eyes closed tightly, no major abnormalities noted during quick glance before patient swiped hand away - ENT Exam ENT Exam: Mucous Membranes Moist Additional comments: refusing to open mouth - Neck Exam Additional comments: soft, trachea midline - Respiratory Exam Respiratory Exam: Clear to Auscultation Bilateral. absent: Rales, Rhonchi, Wheezes - Cardiovascular Exam Cardiovascular Exam: Tachycardia, +S1, +S2. absent: Gallop, Rubs, Systolic Murmur - GI/Abdominal Exam Additional comments: soft, NT, ND, obese, ventral hernia appreciated, reducible - Rectal Exam Additional comments: pema hematochezia noted on diaper - Exam Additional comments: torrez in place with clear yellow urine - Extremities Exam Extremities exam: Positive for: normal capillary refill, pedal edema (+2), pedal pulses present. Negative for: calf tenderness - Neurological Exam Additional comments: awake, not alert, unable to determine orientation, moves all extremities spontaneously - Psychiatric Exam Psychiatric exam: Agitated - Skin Skin Exam: Dry, Warm Additional comments: multiple ecchymoses throughout, left forearm with skin breakdown Results - Vital Signs Recent Vital Signs: Last Vital Signs Temp 98.2 F 08/07/18 12:00 Pulse 58 L 08/07/18 12:00 Resp 18 08/07/18 12:00 BP 116/90 08/07/18 12:00 Pulse Ox 95 08/07/18 06:00 - Labs Result Diagrams: 08/07/18 11:40 08/07/18 08:50 Labs: Laboratory Results - last 24 hr 08/06/18 08/06/18 08/06/18 16:00 21:59 23:55 WBC 5.3 RBC 3.50 Hgb 10.2 L Hct 30.0 L MCV 85.7 MCH 29.1 MCHC 34.0 RDW 19.1 H Plt Count 102 L MPV 9.1 Gran % 78.5 H Lymph % (Auto) 10.8 L [place] % (Auto) 10.1 H Eos % (Auto) 0.4 L Baso % (Auto) 0.2 Gran # 4.14 Lymph # (Auto) 0.6 L [place] # (Auto) 0.5 Eos # (Auto) 0.0 Baso # (Auto) 0.01 Neutrophils % (Manual) 81 H Band Neutrophils % 16 H* Lymphocytes % (Manual) 2 L Monocytes % (Manual) 1 Toxic Granulation 1+ Platelet Evaluation Low Poikilocytosis (manual Slight Anisocytosis (manual) Slight PT INR Sodium Potassium Chloride Carbon Dioxide Anion Gap BUN Creatinine Est GFR ( Amer) Est GFR (Non-Af Amer) POC Glucose (mg/dL) 192 H 220 H Random Glucose Calcium Phosphorus Magnesium Total Bilirubin AST ALT Alkaline Phosphatase Total Protein Albumin Globulin Albumin/Globulin Ratio Blood Type Antibody Screen Crossmatch BBK History Checked 08/07/18 08/07/18 08/07/18 07:14 08:50 08:50 WBC 5.5 RBC 3.09 L Hgb 8.9 L Hct 26.7 L MCV 86.4 MCH 28.8 MCHC 33.3 RDW 19.3 H Plt Count 102 L MPV 9.0 Gran % Lymph % (Auto) [place] % (Auto) Eos % (Auto) Baso % (Auto) Gran # Lymph # (Auto) [place] # (Auto) Eos # (Auto) Baso # (Auto) Neutrophils % (Manual) Band Neutrophils % Lymphocytes % (Manual) Monocytes % (Manual) Toxic Granulation Platelet Evaluation Poikilocytosis (manual Anisocytosis (manual) PT INR Sodium 129 L Potassium 3.9 Chloride 105 Carbon Dioxide 18 L Anion Gap 10 BUN 24 H Creatinine 1.2 Est GFR ( Amer) 53 Est GFR (Non-Af Amer) 43 POC Glucose (mg/dL) 80 Random Glucose 71 Calcium 7.6 L Phosphorus 2.7 Magnesium 1.6 L Total Bilirubin 0.4 AST 48 H D ALT 63 H Alkaline Phosphatase 110 Total Protein 3.8 L Albumin 1.4 L Globulin 2.4 Albumin/Globulin Ratio 0.6 L Blood Type Antibody Screen Crossmatch BBK History Checked 08/07/18 08/07/18 08/07/18 09:00 11:40 11:40 WBC 6.1 RBC 3.15 L Hgb 9.1 L Hct 27.2 L MCV 86.3 MCH 28.9 MCHC 33.5 RDW 19.3 H Plt Count 108 L MPV 8.8 Gran % Lymph % (Auto) [place] % (Auto) Eos % (Auto) Baso % (Auto) Gran # Lymph # (Auto) [place] # (Auto) Eos # (Auto) Baso # (Auto) Neutrophils % (Manual) Band Neutrophils % Lymphocytes % (Manual) Monocytes % (Manual) Toxic Granulation Platelet Evaluation Poikilocytosis (manual Anisocytosis (manual) PT 28.2 H INR 2.41 Sodium Potassium Chloride Carbon Dioxide Anion Gap BUN Creatinine Est GFR ( Amer) Est GFR (Non-Af Amer) POC Glucose (mg/dL) Random Glucose Calcium Phosphorus Magnesium Total Bilirubin AST ALT Alkaline Phosphatase Total Protein Albumin Globulin Albumin/Globulin Ratio Blood Type A POSITIVE Antibody Screen Negative Crossmatch See Detail BBK History Checked Patient has bt Assessment & Plan - Assessment and Plan (Free Text) Assessment: 77 year old female with a PMH of HTN, DM, JOSE, Chron's disease, dementia and now new stroke and new onset atrial fibrillation who now presents with multiple episodes of hematochezia. Plan: Neuro GCS 10 Baseline dementia with worsening delirium in setting of both new stroke and need for ativan for agitation Psych has been following for agitation as well as suicidal ideation, recs appreciated Continue ativan and seroquel PRN Neuro following for new stroke, recs also noted Imaging and official reads for head CT, CTA and brain MRI reviewed by me Cardio Active bleeding with tachycardia and hypotension Will be monitoring blood pressure closely in ICU Echo showed HFpEF = diastolic dysfunction New onset Afib, CHADSVASC 7 (11.2% year stroke risk) but recent bleeding event so off eliquis (received one dose yesterday) and off ASA HASBLED 5 (9.1% risk of bleeding) Maintain MAP >65 Strict IxOs, daily weights Pulm Protecting airway, satting well PRN O2 NC 2L Will continue to monitor GI Having active hematochezia from possible GI bleed, however bleeding scan negative Abd/pelvis CT shows likely pancolitis, on cefepime and flagyl per ID recs GI following, plan for EGD and flex sig Will monitor bowel movements Does have history of chron's, possible this is bloody bowel movements from this On mesalamine, continue PRN zofran Nephro/Electrolytes BUN and Cr slightly above baseline Pseudohypocalcemia 2/2 hypoalbuminemia (bulmaro 9.68) with some edema noted, will given albumin x1 and re-evaluate Mag repleted earlier today, recheck tomorrow AM Monitor fluid status closely, strict I&Os Heme As above, possible active GI bleed with active hematochezia, tachycardia and hypotension Will manage in ICU GI to scope tomorrow 2U PRBC on hold ID ID following, on cefepime and flagyl for likely pancolitis GI/DVT ppx: protonix/SCDs, no medical AC due to bleeding Patient was seen and examined and case was discussed at length with attending vp human resources Dr. Bautista. - Date & Time Date: 08/07/18 Time: 13:40 <Ruel Bautista - Last Filed: 08/07/18 19:03> Meds - Medications Medications: Current Medications Acetaminophen (Tylenol 325mg Tab) 650 mg PO Q6H PRN PRN Reason: Fever >100.4 F Last Admin: 08/05/18 14:04 Dose: 650 mg Apixaban (Eliquis) 5 mg PO BID [facility]; Protocol Last Admin: 08/06/18 17:09 Dose: 5 mg Aspirin (Aspirin Chewable) 81 mg PO DAILY [facility] Last Admin: 08/07/18 10:42 Dose: Not Given Atorvastatin Calcium (Lipitor) 40 mg PO DIN [facility] Last Admin: 08/07/18 17:36 Dose: 40 mg Cholecalciferol (Vitamin D) 2,000 intlu PO DAILY [facility] Last Admin: 08/07/18 10:46 Dose: Not Given Diltiazem HCl (Cardizem) 60 mg PO TID [facility] Last Admin: 08/07/18 17:51 Dose: Not Given Metronidazole (Flagyl) 500 mg in 100 mls @ 100 mls/hr IVPB Q8 [facility]; Protocol Last Admin: 08/07/18 14:25 Dose: 100 mls/hr Cefepime HCl (Maxipime 1gm) 1 gm in 100 mls @ 100 mls/hr IVPB Q12 [facility]; Protocol Last Admin: 08/07/18 10:43 Dose: 100 mls/hr Insulin Human Regular (Humulin R Med) 0 units SC ACHS [facility]; Protocol Last Admin: 08/07/18 17:36 Dose: Not Given Lorazepam (Ativan) 0.25 mg PO Q6 [facility]N; 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 Reason: Anxiety Last Admin: 08/07/18 00:19 Dose: 0.25 mg Mesalamine (Rowasa Enema) 4 gm RC BID [facility] Last Admin: 08/07/18 18:46 Dose: 4 gm Mesalamine (Pentasa) 500 mg PO QID [facility] Last Admin: 08/07/18 17:51 Dose: Not Given Metoprolol Tartrate (Lopressor) 5 mg IVP ONCE PRN PRN Reason: Other Ondansetron HCl (Zofran Inj) 4 mg IVP Q4H PRN PRN Reason: Nausea/Vomiting Last Admin: 08/06/18 06:39 Dose: 4 mg Pantoprazole Sodium (Protonix Ec Tab) 40 mg PO 0600 [facility] Last Admin: 08/07/18 06:19 Dose: 40 mg Quetiapine Fumarate (Seroquel) 12.5 mg PO HS PRN; 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 Reason: Agitation Last Admin: 08/06/18 23:08 Dose: 12.5 mg Results - Vital Signs Recent Vital Signs: Last Vital Signs Temp 97.1 F L 08/07/18 18:34 Pulse 81 08/07/18 18:34 Resp 26 H 08/07/18 18:34 BP 110/54 L 08/07/18 18:34 Pulse Ox 95 08/07/18 06:00 - Labs Result Diagrams: 08/07/18 14:00 08/07/18 08:50 Labs: Laboratory Results - last 24 hr 08/06/18 08/06/18 08/07/18 21:59 23:55 07:14 WBC 5.3 RBC 3.50 Hgb 10.2 L Hct 30.0 L MCV 85.7 MCH 29.1 MCHC 34.0 RDW 19.1 H Plt Count 102 L MPV 9.1 Gran % 78.5 H Lymph % (Auto) 10.8 L [place] % (Auto) 10.1 H Eos % (Auto) 0.4 L Baso % (Auto) 0.2 Gran # 4.14 Lymph # (Auto) 0.6 L [place] # (Auto) 0.5 Eos # (Auto) 0.0 Baso # (Auto) 0.01 Neutrophils % (Manual) 81 H Band Neutrophils % 16 H* Lymphocytes % (Manual) 2 L Monocytes % (Manual) 1 Toxic Granulation 1+ Platelet Evaluation Low Poikilocytosis (manual Slight Anisocytosis (manual) Slight PT INR Sodium Potassium Chloride Carbon Dioxide Anion Gap BUN Creatinine Est GFR ( Amer) Est GFR (Non-Af Amer) POC Glucose (mg/dL) 220 H 80 Random Glucose Calcium Phosphorus Magnesium Total Bilirubin AST ALT Alkaline Phosphatase Total Protein Albumin Globulin Albumin/Globulin Ratio Blood Type Antibody Screen Crossmatch BBK History Checked 08/07/18 08/07/18 08/07/18 08:50 08:50 09:00 WBC 5.5 RBC 3.09 L Hgb 8.9 L Hct 26.7 L MCV 86.4 MCH 28.8 MCHC 33.3 RDW 19.3 H Plt Count 102 L MPV 9.0 Gran % Lymph % (Auto) [place] % (Auto) Eos % (Auto) Baso % (Auto) Gran # Lymph # (Auto) [place] # (Auto) Eos # (Auto) Baso # (Auto) Neutrophils % (Manual) Band Neutrophils % Lymphocytes % (Manual) Monocytes % (Manual) Toxic Granulation Platelet Evaluation Poikilocytosis (manual Anisocytosis (manual) PT 28.2 H INR 2.41 Sodium 129 L Potassium 3.9 Chloride 105 Carbon Dioxide 18 L Anion Gap 10 BUN 24 H Creatinine 1.2 Est GFR ( Amer) 53 Est GFR (Non-Af Amer) 43 POC Glucose (mg/dL) Random Glucose 71 Calcium 7.6 L Phosphorus 2.7 Magnesium 1.6 L Total Bilirubin 0.4 AST 48 H D ALT 63 H Alkaline Phosphatase 110 Total Protein 3.8 L Albumin 1.4 L Globulin 2.4 Albumin/Globulin Ratio 0.6 L Blood Type Antibody Screen Crossmatch BBK History Checked 08/07/18 08/07/18 08/07/18 11:18 11:40 11:40 WBC 6.1 RBC 3.15 L Hgb 9.1 L Hct 27.2 L MCV 86.3 MCH 28.9 MCHC 33.5 RDW 19.3 H Plt Count 108 L MPV 8.8 Gran % Lymph % (Auto) [place] % (Auto) Eos % (Auto) Baso % (Auto) Gran # Lymph # (Auto) [place] # (Auto) Eos # (Auto) Baso # (Auto) Neutrophils % (Manual) Band Neutrophils % Lymphocytes % (Manual) Monocytes % (Manual) Toxic Granulation Platelet Evaluation Poikilocytosis (manual Anisocytosis (manual) PT INR Sodium Potassium Chloride Carbon Dioxide Anion Gap BUN Creatinine Est GFR ( Amer) Est GFR (Non-Af Amer) POC Glucose (mg/dL) 71 Random Glucose Calcium Phosphorus Magnesium Total Bilirubin AST ALT Alkaline Phosphatase Total Protein Albumin Globulin Albumin/Globulin Ratio Blood Type A POSITIVE Antibody Screen Negative Crossmatch See Detail BBK History Checked Patient has bt 08/07/18 14:00 WBC 6.6 RBC 2.85 L Hgb 8.1 L Hct 24.7 L MCV 86.7 MCH 28.4 MCHC 32.8 RDW 19.3 H Plt Count 106 L MPV 8.6 Gran % 85.2 H Lymph % (Auto) 7.1 L [place] % (Auto) 7.5 H Eos % (Auto) 0.0 L Baso % (Auto) 0.2 Gran # 5.66 Lymph # (Auto) 0.5 L [place] # (Auto) 0.5 Eos # (Auto) 0.0 Baso # (Auto) 0.01 Neutrophils % (Manual) Band Neutrophils % Lymphocytes % (Manual) Monocytes % (Manual) Toxic Granulation Platelet Evaluation Poikilocytosis (manual Anisocytosis (manual) PT INR Sodium Potassium Chloride Carbon Dioxide Anion Gap BUN Creatinine Est GFR ( Amer) Est GFR (Non-Af Amer) POC Glucose (mg/dL) Random Glucose Calcium Phosphorus Magnesium Total Bilirubin AST ALT Alkaline Phosphatase Total Protein Albumin Globulin Albumin/Globulin Ratio Blood Type Antibody Screen Crossmatch BBK History Checked Addendum Addendum: 08/07/18 19:01 MICU Attending Patient seen and examined with housestaff. Agree with note above with the following add/except: 77 year old female with a PMH of HTN, DM, JOSE, Chron's disease, dementia and now new stroke and new onset atrial fibrillation who now presents with multiple episodes of hematochezia. She was started on eliquis and later devloped rectal bleeding. During my evaluation she has bright red blood in her diaper mixed with clots. This was her fourth diaper over 6 hours. Given her active GI B, will transfer to ICU transfuse 1 unit PRBC GI on consult planning to scope will stabilize until then holding antiplat for now neuro on consult rest of care as above Ruel Bautista MD Pulm/CC/Sleep
--- NOTE | 2018-08-07 14:05 | CP.PCM.PN ---
<Walter Tijerina - Last Filed: 08/07/18 14:09> Subjective - Date & Time of Evaluation Date of Evaluation: 08/07/18 Time of Evaluation: 11:30 - Subjective Subjective: Walter Tijerina- Internal Medicine Resident- Consult Note on Behalf of Neurology Team Subjective: Patient seen and examined at bedside. No acute events overnight.Offers no new complaints at this time. Follows commands. Denies weakness, dizziness, headache, numbness, and focal deficits. 12 point ROS negative except as indicated in the HPI Physical Examination: - Constitutional Appears: Well, Non-toxic, No Acute Distress - Head Exam Head Exam: ATRAUMATIC, NORMAL INSPECTION, NORMOCEPHALIC - Eye Exam Eye Exam: EOMI, Normal appearance - ENT Exam ENT Exam: Mucous Membranes Moist, Normal Exam, No tongue laceration - Neck Exam Neck exam: Positive for: Full Rom, Normal Inspection - Respiratory Exam Respiratory Exam: Clear to Auscultation Bilateral, NORMAL BREATHING PATTERN. absent: Accessory Muscle Use, Rales, Rhonchi, Wheezes, Respiratory Distress - Cardiovascular Exam Cardiovascular Exam: REGULAR RHYTHM, +S1, +S2 - GI/Abdominal Exam GI & Abdominal Exam: Normal Bowel Sounds, Soft. absent: Distended, Firm, Guarding, Rebound, Rigid, Tenderness - Extremities Exam Extremities exam: negative for clubbing and cyanosis - Neurological Exam Neurological exam: awake, alert, orientated x [address], responds to verbal stimuli, answers questions appropriately, follows commands, moves extremities past midline, no neglect noted - Skin Skin Exam: Intact, Normal Color, Warm Assessment and Plan: Patient is a 77 year old female with a past medical history of HTN, DM2, and OA who was admitted for evaluation and treatment of altered mental status and hallucinations/delusions. Neurology was consulted for management of altered mental status. Altered Mental Status -07/28/[address] without contrast- Moderate volume loss and chronic microvascular ischemic disease. No evidence of acute intracranial hemorrhage m ass effect or midline shift. - 07/29/2018 Brain MRI with and without contrast- multiple small cortical and subcortical infarcts in both hemispheres right greater than left - 07/30/2018 CTA head and neck- No evidence of stenosis or occlusion, Unremarkable CT Angiography of the Brain. - 07/2018 Echocardiogram- LVEF 63%, moderate to severe aortic regurg - 08/06/2018- CT Head without Contrast- No acute findings - continue with physical therapy, occupation therapy, and speech therapy - recommend neurocognitive therapy on outpatient basis - EEG ordered and pending - ok to start eliquis 5mg BID if cleared approved by GI Patient case discussed with and plan approved by attending physician, Dr. Alberts. Objective - Vital Signs/Intake and Output Vital Signs (last 24 hours): Temp Pulse Resp BP Pulse Ox 98.2 F 58 L 18 116/90 95 08/07/18 12:00 08/07/18 12:00 08/07/18 12:00 08/07/18 12:00 08/07/18 06:00 Intake and Output: 08/07/18 08/07/18 06:59 18:59 Intake Total 780 Balance 780 - Medications Medications: Current Medications Acetaminophen (Tylenol 325mg Tab) 650 mg PO Q6H PRN PRN Reason: Fever >100.4 F Last Admin: 08/05/18 14:04 Dose: 650 mg Apixaban (Eliquis) 5 mg PO BID [facility]; Protocol Last Admin: 08/06/18 17:09 Dose: 5 mg Aspirin (Aspirin Chewable) 81 mg PO DAILY [facility] Last Admin: 08/07/18 10:42 Dose: Not Given Atorvastatin Calcium (Lipitor) 40 mg PO DIN [facility] Last Admin: 08/06/18 17:09 Dose: 40 mg Cholecalciferol (Vitamin D) 2,000 intlu PO DAILY [facility] Last Admin: 08/07/18 10:46 Dose: Not Given Diltiazem HCl (Cardizem) 60 mg PO TID [facility] Last Admin: 08/07/18 10:46 Dose: Not Given Metronidazole (Flagyl) 500 mg in 100 mls @ 100 mls/hr IVPB Q8 [facility]; Protocol Last Admin: 08/07/18 06:17 Dose: 100 mls/hr Cefepime HCl (Maxipime 1gm) 1 gm in 100 mls @ 100 mls/hr IVPB Q12 [facility]; Protocol Last Admin: 08/07/18 10:43 Dose: 100 mls/hr Insulin Human Regular (Humulin R Med) 0 units SC ACHS [facility]; Protocol Last Admin: 08/07/18 08:10 Dose: Not Given Lorazepam (Ativan) 0.25 mg PO Q6 PRN; 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 Reason: Anxiety Last Admin: 08/07/18 00:19 Dose: 0.25 mg Mesalamine (Rowasa Enema) 4 gm RC BID [facility] Last Admin: 08/07/18 10:45 Dose: Not Given Mesalamine (Pentasa) 500 mg PO QID [facility] Last Admin: 08/07/18 10:45 Dose: Not Given Metoprolol Tartrate (Lopressor) 5 mg IVP ONCE PRN PRN Reason: Other Ondansetron HCl (Zofran Inj) 4 mg IVP Q4H PRN PRN Reason: Nausea/Vomiting Last Admin: 08/06/18 06:39 Dose: 4 mg Pantoprazole Sodium (Protonix Ec Tab) 40 mg PO 0600 [facility] Last Admin: 08/07/18 06:19 Dose: 40 mg Quetiapine Fumarate (Seroquel) 12.5 mg PO HS PRN; 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 Reason: Agitation Last Admin: 08/06/18 23:08 Dose: 12.5 mg - Labs Labs: 08/07/18 11:40 08/07/18 08:50 PT 28.2 SECONDS (9.4-12.5) H 08/07/18 09:00 INR 2.41 08/07/18 09:00 APTT 36.0 Seconds (25.1-36.5) 08/01/18 05:30 <Travis Alberts - Last Filed: 08/07/18 17:46> Objective - Vital Signs/Intake and Output Vital Signs (last 24 hours): Temp Pulse Resp BP Pulse Ox 97.3 F L 96 H 23 93/47 L 95 08/07/18 17:33 08/07/18 17:33 08/07/18 17:33 08/07/18 17:33 08/07/18 06:00 Intake and Output: 08/07/18 08/07/18 06:59 18:59 Intake Total 780 0 Balance 780 0 - Medications Medications: Current Medications Acetaminophen (Tylenol 325mg Tab) 650 mg PO Q6H PRN PRN Reason: Fever >100.4 F Last Admin: 08/05/18 14:04 Dose: 650 mg Apixaban (Eliquis) 5 mg PO BID [facility]; Protocol Last Admin: 08/06/18 17:09 Dose: 5 mg Aspirin (Aspirin Chewable) 81 mg PO DAILY [facility] Last Admin: 08/07/18 10:42 Dose: Not Given Atorvastatin Calcium (Lipitor) 40 mg PO DIN [facility] Last Admin: 08/07/18 17:36 Dose: 40 mg Cholecalciferol (Vitamin D) 2,000 intlu PO DAILY [facility] Last Admin: 08/07/18 10:46 Dose: Not Given Diltiazem HCl (Cardizem) 60 mg PO TID [facility] Last Admin: 08/07/18 14:25 Dose: Not Given Metronidazole (Flagyl) 500 mg in 100 mls @ 100 mls/hr IVPB Q8 [facility]; Protocol Last Admin: 08/07/18 14:25 Dose: 100 mls/hr Cefepime HCl (Maxipime 1gm) 1 gm in 100 mls @ 100 mls/hr IVPB Q12 [facility]; Protocol Last Admin: 08/07/18 10:43 Dose: 100 mls/hr Insulin Human Regular (Humulin R Med) 0 units SC ACHS [facility]; Protocol Last Admin: 08/07/18 17:36 Dose: Not Given Lorazepam (Ativan) 0.25 mg PO Q6 PRN; 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 Reason: Anxiety Last Admin: 08/07/18 00:19 Dose: 0.25 mg Mesalamine (Rowasa Enema) 4 gm RC BID [facility] Last Admin: 08/07/18 10:45 Dose: Not Given Mesalamine (Pentasa) 500 mg PO QID [facility] Last Admin: 08/07/18 14:31 Dose: Not Given Metoprolol Tartrate (Lopressor) 5 mg IVP ONCE PRN PRN Reason: Other Ondansetron HCl (Zofran Inj) 4 mg IVP Q4H PRN PRN Reason: Nausea/Vomiting Last Admin: 08/06/18 06:39 Dose: 4 mg Pantoprazole Sodium (Protonix Ec Tab) 40 mg PO 0600 [facility] Last Admin: 08/07/18 06:19 Dose: 40 mg Quetiapine Fumarate (Seroquel) 12.5 mg PO HS PRN; 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 Reason: Agitation Last Admin: 08/06/18 23:08 Dose: 12.5 mg - Labs Labs: 08/07/18 14:00 08/07/18 08:50 PT 28.2 SECONDS (9.4-12.5) H 08/07/18 09:00 INR 2.41 08/07/18 09:00 APTT 36.0 Seconds (25.1-36.5) 08/01/18 05:30 Assessment and Plan (1) Ischemic stroke Status: Acute Attending/Attestation - Attestation I have personally seen and examined this patient.: Yes I have fully participated in the care of the patient.: Yes I have reviewed all pertinent clinical information, including history, physical exam and plan: Yes Notes (Text): 08/07/18 17:46 I agree with the assessment and plan: - continue with physical therapy, occupation therapy, and speech therapy - recommend neurocognitive therapy on outpatient basis - EEG ordered and pending - ok to start eliquis 5mg BID if cleared approved by GI
[2018-08-07] MEDS ORDERED: Magnesium Sulfate 2 gm/50 ml 2 GM/50 ML BAG IVPB ONE (14:15)
[2018-08-07 14:16] LABS: BASO # 0.01 K/mm3 (0.0-2.0); BASO % 0.2 % (0.0-3.0); GRAN # 5.66 (1.4-6.5); GRAN % 85.2 % (50.0-68.0); HEMOGLOBIN 8.1 g/dL (12.0-16.0); LYMPH # 0.5 (1.2-3.4); LYMPH % 7.1 % (22.0-35.0); MEAN CELL VOLUME 86.7 fl (80.0-105.0); MEAN CORPUSCULAR HEMOGLOBIN 28.4 pg (25.0-35.0); MEAN CORPUSCULAR HGB CONC 32.8 g/dl (31.0-37.0); MEAN PLATELET VOLUME 8.6 fl (7.0-11.0); MONO # 0.5 (0.1-0.6); MONO % 7.5 % (1.0-6.0); RBC 2.85 10^6/uL (3.5-6.1); RED CELL DISTRIBUTION WIDTH 19.3 % (11.5-14.5); WHITE BLOOD COUNT 6.6 10^3/uL (4.5-11.0)
[2018-08-07] MEDS: Magnesium Sulfate 2 gm/50 ml 2 GM/50 ML BAG IVPB ONE ×2 (14:26)
[2018-08-07] MEDS ORDERED: Albumin Human 25% (12.5 gm/50 ml) IV ONE (14:38)
[2018-08-07] MEDS ORDERED: Bisacodyl 5mg EC Tab PO ONE (14:43)
--- NOTE | 2018-08-07 15:52 | PN ---
DATE: 08/07/2018 CARDIOLOGY FOLLOWUP SUBJECTIVE: The patient is lethargic. PHYSICAL EXAMINATION: VITAL SIGNS: Blood pressure is 116/90; heart rate is in the 70s, in atrial fibrillation. NECK: Negative JVD. LUNGS: Without rales. HEART: S1, S2. EXTREMITIES: Without edema. LABORATORY DATA: BUN and creatinine are 24 and 1.2. Hemoglobin is 9.1. IMPRESSION: 1. Status post gastrointestinal bleed. 2. Cerebrovascular accident. 3. Atrial fibrillation. 4. Anemia. 5. Non-ST elevation myocardial infarction. Given these findings, the patient is awaiting transfer to the ICU. Obviously, no anticoagulation can be given for her atrial fibrillation. Tello Talbert MD
--- NOTE | 2018-08-07 17:30 | PN ---
DATE: 08/07/2018 SUBJECTIVE: The patient was seen early this morning in room 267, bed 2. Now, the patient has been transferred to the ICU 128, bed 2. The patient has no fevers and chills. Follows command. No weakness. No headache. No numbness. PHYSICAL EXAMINATION: VITAL SIGNS: On exam, the patient's temperature is 98, she did have a T-max of 100.9 yesterday; heart rate of 1045; respiratory rate of 209; blood pressure is 99/50. HEENT: Examination of HEENT is unremarkable. NECK: Supple. LUNGS: Have decreased breath sounds. HEART: Normal S1 and S2. ABDOMEN: Soft, nontender. LABORATORY DATA: Laboratory examination reveals a white count of 5, hemoglobin of 8. The patient did have bandemia yesterday of 16,000. Chemistries are noted. Mild LFT elevations are noted. Urinalysis is noted. Microbiology reveals the blood cultures are negative. The repeat blood cultures are also negative. The stool antigen is negative and toxin is negative. Stool cultures, no Salmonella, Shigella, Campylobacter is isolated. Another C. diff toxin and antigen are both negative. Dr. Boles's note is reviewed. The patient was found agitated last night, was given Ativan. ASSESSMENT AND PLAN: This is a 77-year-old female with a history of diabetes, hypertension, chronic obstructive lung disease, possible Crohn's disease. Admitted with hallucinations and delusions and she has not had any fevers. The patient with pancolitis with acute cerebrovascular accident, hypertension, on cefepime and Flagyl. Thus far the cultures are negative. The patient had a gastrointestinal scan, bleeding scan with no evidence of active gastrointestinal bleeding. Review of orders reveals the Flagyl and cefepime are active. We will check on the final culture results and follow the patient closely. Ranjit Vaca MD
--- NOTE | 2018-08-07 18:21 | CP.PCM.CON ---
History of Present Illness - History of Present Illness History of Present Illness: Palliative consult requested by Dr Mata Quevedo Reason: Goals of care 77 year old female with history of OA, Chrohn's disease, DM and dementia who presented on 07/28/18 with, N STEMI, hallucinations and and delirium. Labs 07/28/18: Wbc 6.2, Hg 10.8, Plt 170,Na 136, K 3.1,BUN 27, Lace Machine Operator 1.0, glucose 64, Jai 8.3, AST 35, ALT 38, Albumin 2.9, Troponin 1.14 CT of head: Moderate volume loss, chronic microvascular ischemic disease. MRI of Brain:Multiple small cortical and subcortical infarcts in both hemispheres R>L, could be due to hypotensive watershed infarct type of event Head/NECK MRA: unremarkable. CT of abdomen: Segmental circumferential mural thickening in proximal small bowel and circumferential thickening in mid and distal descending colon which is nonspecific, moderate pleural effusions, small abdominal pelvic ascites and severe diffuse anasarca. EKG:NSR PAC's,RBBB. Vonveted to A Fib ECHO: EF normal, LV normal, moderate to severe AR, mild TR, mild PHTN PMHX:HTN, DM, OA, Chron's disease, dementia, paranoia PSHX: L knee surgery Family History: Unknown Social History: Former heavy smoker, no alcohol or drug use. , was living independently Advance Care Planning: The patient does not have an Advanced Directive Her daughter Adina is her POA Review of Systems: As per HPI, unable to obtain as patient is altered Past Patient History - Infectious Disease Hx of Infectious Diseases: None - Tetanus Immunizations Tetanus Immunization: Unknown - Past Social History Smoking Status: Former Smoker - CARDIAC Hx Hypertension: Yes - PULMONARY Hx Chronic Obstructive Pulmonary Disease (COPD): Yes - NEUROLOGICAL Hx Neurological Disorder: Yes (paranoid, delusional) - HEENT Hx HEENT Problems: No - RENAL Hx Chronic Kidney Disease: No - ENDOCRINE/METABOLIC Hx Diabetes Mellitus Type 2: Yes - HEMATOLOGICAL/ONCOLOGICAL Hx Blood Disorders: No - INTEGUMENTARY Hx Dermatological Problems: No - MUSCULOSKELETAL/RHEUMATOLOGICAL Hx Arthritis: Yes - GASTROINTESTINAL Hx Gastrointestinal Disorders: No - GENITOURINARY/GYNECOLOGICAL Hx Genitourinary Disorders: No - PSYCHIATRIC Hx Psychophysiologic Disorder: Yes Hx Emotional Abuse: No Hx Paranoia: Yes (acute) Hx Physical Abuse: No - SURGICAL HISTORY Hx Surgeries: Yes Hx Orthopedic Surgery: Yes (LEFT KNEE) - ANESTHESIA Hx Anesthesia Reactions: No Hx Malignant Hyperthermia: No Meds Allergies/Adverse Reactions: Allergies Allergy/AdvReac Type Severity Reaction Status Date / Time No Known Allergies Allergy Verified 02/12/14 12:07 - Medications Medications: Current Medications Acetaminophen (Tylenol 325mg Tab) 650 mg PO Q6H PRN PRN Reason: Fever >100.4 F Last Admin: 08/05/18 14:04 Dose: 650 mg Apixaban (Eliquis) 5 mg PO BID [facility]; Protocol Last Admin: 08/06/18 17:09 Dose: 5 mg Aspirin (Aspirin Chewable) 81 mg PO DAILY [facility] Last Admin: 08/07/18 10:42 Dose: Not Given Atorvastatin Calcium (Lipitor) 40 mg PO DIN [facility] Last Admin: 08/07/18 17:36 Dose: 40 mg Cholecalciferol (Vitamin D) 2,000 intlu PO DAILY [facility] Last Admin: 08/07/18 10:46 Dose: Not Given Diltiazem HCl (Cardizem) 60 mg PO TID [facility] Last Admin: 08/07/18 17:51 Dose: Not Given Metronidazole (Flagyl) 500 mg in 100 mls @ 100 mls/hr IVPB Q8 [facility]; Protocol Last Admin: 08/07/18 14:25 Dose: 100 mls/hr Cefepime HCl (Maxipime 1gm) 1 gm in 100 mls @ 100 mls/hr IVPB Q12 [facility]; Protocol Last Admin: 08/07/18 10:43 Dose: 100 mls/hr Insulin Human Regular (Humulin R Med) 0 units SC ACHS [facility]; Protocol Last Admin: 08/07/18 17:36 Dose: Not Given Lorazepam (Ativan) 0.25 mg PO Q6 PRN; 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 Reason: Anxiety Last Admin: 08/07/18 00:19 Dose: 0.25 mg Mesalamine (Rowasa Enema) 4 gm RC BID [facility] Last Admin: 08/07/18 10:45 Dose: Not Given Mesalamine (Pentasa) 500 mg PO QID [facility] Last Admin: 08/07/18 17:51 Dose: Not Given Metoprolol Tartrate (Lopressor) 5 mg IVP ONCE PRN PRN Reason: Other Ondansetron HCl (Zofran Inj) 4 mg IVP Q4H PRN PRN Reason: Nausea/Vomiting Last Admin: 08/06/18 06:39 Dose: 4 mg Pantoprazole Sodium (Protonix Ec Tab) 40 mg PO 0600 [facility] Last Admin: 08/07/18 06:19 Dose: 40 mg Quetiapine Fumarate (Seroquel) 12.5 mg PO HS PRN; 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 Reason: Agitation Last Admin: 08/06/18 23:08 Dose: 12.5 mg Physical Exam - Constitutional Appears: Chronically Ill - Head Exam Head Exam: NORMOCEPHALIC - Eye Exam Eye Exam: Normal appearance, PERRL - ENT Exam ENT Exam: Mucous Membranes Moist, Normal Oropharynx - Neck Exam Neck exam: Positive for: Normal Inspection - Respiratory Exam Respiratory Exam: Clear to Auscultation Bilateral, NORMAL BREATHING PATTERN - Cardiovascular Exam Cardiovascular Exam: Irregular Rhythm, +S1, +S2 - GI/Abdominal Exam GI & Abdominal Exam: Normal Bowel Sounds, Soft Additional comments: no tenderness - Exam Additional comments: incontinent - Extremities Exam Additional comments: generalized edemaof upper and lower extremities - Back Exam Back exam: NORMAL INSPECTION - Neurological Exam Neurological exam: Altered - Skin Skin Exam: Dry, Pallor, Warm - Additional Findings Additional findings: palliative performance scale rating 30% Results - Vital Signs Recent Vital Signs: Last Vital Signs Temp 97.2 F L 08/07/18 17:49 Pulse 98 H 08/07/18 17:49 Resp 22 08/07/18 17:49 BP 105/57 L 08/07/18 17:49 Pulse Ox 95 08/07/18 06:00 - Labs Result Diagrams: 08/08/18 05:29 08/08/18 05:29 Labs: Laboratory Results - last 24 hr 08/06/18 08/06/18 08/07/18 21:59 23:55 07:14 WBC 5.3 RBC 3.50 Hgb 10.2 L Hct 30.0 L MCV 85.7 MCH 29.1 MCHC 34.0 RDW 19.1 H Plt Count 102 L MPV 9.1 Gran % 78.5 H Lymph % (Auto) 10.8 L [place] % (Auto) 10.1 H Eos % (Auto) 0.4 L Baso % (Auto) 0.2 Gran # 4.14 Lymph # (Auto) 0.6 L [place] # (Auto) 0.5 Eos # (Auto) 0.0 Baso # (Auto) 0.01 Neutrophils % (Manual) 81 H Band Neutrophils % 16 H* Lymphocytes % (Manual) 2 L Monocytes % (Manual) 1 Toxic Granulation 1+ Platelet Evaluation Low Poikilocytosis (manual Slight Anisocytosis (manual) Slight PT INR Sodium Potassium Chloride Carbon Dioxide Anion Gap BUN Creatinine Est GFR ( Amer) Est GFR (Non-Af Amer) POC Glucose (mg/dL) 220 H 80 Random Glucose Calcium Phosphorus Magnesium Total Bilirubin AST ALT Alkaline Phosphatase Total Protein Albumin Globulin Albumin/Globulin Ratio Blood Type Antibody Screen Crossmatch BBK History Checked 08/07/18 08/07/18 08/07/18 08:50 08:50 09:00 WBC 5.5 RBC 3.09 L Hgb 8.9 L Hct 26.7 L MCV 86.4 MCH 28.8 MCHC 33.3 RDW 19.3 H Plt Count 102 L MPV 9.0 Gran % Lymph % (Auto) [place] % (Auto) Eos % (Auto) Baso % (Auto) Gran # Lymph # (Auto) [place] # (Auto) Eos # (Auto) Baso # (Auto) Neutrophils % (Manual) Band Neutrophils % Lymphocytes % (Manual) Monocytes % (Manual) Toxic Granulation Platelet Evaluation Poikilocytosis (manual Anisocytosis (manual) PT 28.2 H INR 2.41 Sodium 129 L Potassium 3.9 Chloride 105 Carbon Dioxide 18 L Anion Gap 10 BUN 24 H Creatinine 1.2 Est GFR ( Amer) 53 Est GFR (Non-Af Amer) 43 POC Glucose (mg/dL) Random Glucose 71 Calcium 7.6 L Phosphorus 2.7 Magnesium 1.6 L Total Bilirubin 0.4 AST 48 H D ALT 63 H Alkaline Phosphatase 110 Total Protein 3.8 L Albumin 1.4 L Globulin 2.4 Albumin/Globulin Ratio 0.6 L Blood Type Antibody Screen Crossmatch BBK History Checked 08/07/18 08/07/18 08/07/18 11:18 11:40 11:40 WBC 6.1 RBC 3.15 L Hgb 9.1 L Hct 27.2 L MCV 86.3 MCH 28.9 MCHC 33.5 RDW 19.3 H Plt Count 108 L MPV 8.8 Gran % Lymph % (Auto) [place] % (Auto) Eos % (Auto) Baso % (Auto) Gran # Lymph # (Auto) [place] # (Auto) Eos # (Auto) Baso # (Auto) Neutrophils % (Manual) Band Neutrophils % Lymphocytes % (Manual) Monocytes % (Manual) Toxic Granulation Platelet Evaluation Poikilocytosis (manual Anisocytosis (manual) PT INR Sodium Potassium Chloride Carbon Dioxide Anion Gap BUN Creatinine Est GFR ( Amer) Est GFR (Non-Af Amer) POC Glucose (mg/dL) 71 Random Glucose Calcium Phosphorus Magnesium Total Bilirubin AST ALT Alkaline Phosphatase Total Protein Albumin Globulin Albumin/Globulin Ratio Blood Type A POSITIVE Antibody Screen Negative Crossmatch See Detail BBK History Checked Patient has bt 08/07/18 14:00 WBC 6.6 RBC 2.85 L Hgb 8.1 L Hct 24.7 L MCV 86.7 MCH 28.4 MCHC 32.8 RDW 19.3 H Plt Count 106 L MPV 8.6 Gran % 85.2 H Lymph % (Auto) 7.1 L [place] % (Auto) 7.5 H Eos % (Auto) 0.0 L Baso % (Auto) 0.2 Gran # 5.66 Lymph # (Auto) 0.5 L [place] # (Auto) 0.5 Eos # (Auto) 0.0 Baso # (Auto) 0.01 Neutrophils % (Manual) Band Neutrophils % Lymphocytes % (Manual) Monocytes % (Manual) Toxic Granulation Platelet Evaluation Poikilocytosis (manual Anisocytosis (manual) PT INR Sodium Potassium Chloride Carbon Dioxide Anion Gap BUN Creatinine Est GFR ( Amer) Est GFR (Non-Af Amer) POC Glucose (mg/dL) Random Glucose Calcium Phosphorus Magnesium Total Bilirubin AST ALT Alkaline Phosphatase Total Protein Albumin Globulin Albumin/Globulin Ratio Blood Type Antibody Screen Crossmatch BBK History Checked Assessment & Plan - Assessment and Plan (Free Text) Assessment: 77 year old female with history of COPD,dementia, HTN, DM who is admitted with delusions, delirium who was admitted with AMS, delirium, anemia, rectal bleeding, leukopenia, LISETTE, .Found to have bilateral infarcts in both hemispheres, Lengthy discussion with daughter, Adina( POA) via phone regarding advance care planning. Daughter made aware of the benefits and burdens of resuscitation. Daughter is very clear is stating that she does not want her mother resusci tated with CPR or intubated. Daughter and I also had preliminary discussion regarding mother medical condition and goal of care. Daughter and I will meet tomorrow for further discussion of this matter. Time spent in goals of care discussion, 30 minutes Plan: Advance Care Planning: DNR/DNI Goals of care Anemia/GI Bleed: Transfuse 2 U PRBC's, colonoscopy/EGD tomorrow. On Meslamine,protonix. GI following Sepsis/colitis: Cefepime and Flagyl. GI following LISETTE: IVF's, Albumin once, monitor labs Delirium: Seroquel/ Ativan
[2018-08-08 03:02] LABS: HEMOGLOBIN 10.9 g/dL (12.0-16.0); MEAN CELL VOLUME 86.8 fl (80.0-105.0); MEAN CORPUSCULAR HEMOGLOBIN 29.9 pg (25.0-35.0); MEAN CORPUSCULAR HGB CONC 34.5 g/dl (31.0-37.0); MEAN PLATELET VOLUME 10.2 fl (7.0-11.0); RBC 3.64 10^6/uL (3.5-6.1); RED CELL DISTRIBUTION WIDTH 18.1 % (11.5-14.5); WHITE BLOOD COUNT 4.9 10^3/uL (4.5-11.0)
[2018-08-08 05:52] LABS: HEMOGLOBIN 10.9 g/dL (12.0-16.0); MEAN CELL VOLUME 86.2 fl (80.0-105.0); MEAN CORPUSCULAR HEMOGLOBIN 29.5 pg (25.0-35.0); MEAN CORPUSCULAR HGB CONC 34.3 g/dl (31.0-37.0); MEAN PLATELET VOLUME 9.4 fl (7.0-11.0); RBC 3.69 10^6/uL (3.5-6.1); RED CELL DISTRIBUTION WIDTH 18.1 % (11.5-14.5); WHITE BLOOD COUNT 4.1 10^3/uL (4.5-11.0)
[2018-08-08] MEDS: metroNIDAZOLE IV 500 mg/100 ml 500 MG/100 ML BAG IVPB SCH ×3 (06:00→21:24)
[2018-08-08] MEDS: Pantoprazole 40 mg EC Tab PO SCH (06:00)
[2018-08-08 06:30] LABS: ALB/GLOB RATIO 0.7 (1.1-1.8); ALBUMIN 1.5 g/dL (3.0-4.8)
[2018-08-08] MEDS ORDERED: Albumin Human 25% (12.5 gm/50 ml) IV ONE (06:53)
--- NOTE | 2018-08-08 08:48 | CP.CCUPN ---
<Ye Ramirez - Last Filed: 08/08/18 11:21> CCU Subjective - Physician Review Subjective (Free Text): CRITICAL CARE PROGRESS NOTE FOR. DR. BAUTISTA Pt seen and examined at bedside today. She is closing her eyes tight, and yelling upon tactile stimulation. She reports she feels a little better, however doesn't answer questions, but yells. 12 point ROS is not obtained as patient is not able to answer questions appropriately. CCU Objective - Vital Signs / Intake & Output Vital Signs (Last 4 hours): Vital Signs Pulse Resp BP Pulse Ox 08/08/18 08:40 76 25 H 100 08/08/18 08:30 75 22 100 08/08/18 08:20 73 22 100 08/08/18 08:10 75 24 100 08/08/18 08:00 76 22 102/59 L 100 08/08/18 07:50 74 24 100 08/08/18 07:40 78 21 100 08/08/18 07:30 76 24 100 08/08/18 07:20 78 24 100 08/08/18 07:10 81 23 100 08/08/18 07:00 78 20 92/43 L 100 08/08/18 06:50 79 22 100 08/08/18 06:40 75 23 100 08/08/18 06:30 76 23 100 08/08/18 06:20 78 22 100 08/08/18 06:10 74 23 100 08/08/18 06:00 77 24 91/45 L 100 08/08/18 05:50 80 21 100 08/08/18 05:40 90 20 73 L 08/08/18 05:30 84 22 100 08/08/18 05:20 82 22 100 08/08/18 05:10 87 100 08/08/18 05:00 77 20 91/48 L 100 08/08/18 04:50 79 19 100 Intake and Output (Last 8hrs): Intake & Output 08/07/18 08/08/18 08/08/18 22:59 06:59 14:59 Intake Total 735 1095 Output Total 30 200 Balance 705 895 Weight 76.385 kg Intake: IV 300 Left Forearm 300 Oral 60 120 Blood Product 325 975 Red Blood Cells Cpd As1 0 325 Lr Unit [id number] Red Blood Cells Cpd As1 325 Lr Unit [id number] Other 50 Red Blood Cells Cpd As1 50 Lr Unit [id number] Output: Urine 30 200 Urethral (Lugo) 30 200 Emesis 0 Other: # Bowel Movements 1 - Physical Exam Physical Exam Limitations: Positive for: Altered Mental Status Head: Positive for: Atraumatic, Normocephalic Mouth: Positive for: Dry Neck: Positive for: Normal Range of Motion Respiratory/Chest: Positive for: Clear to Auscultation Cardiovascular: Positive for: Normal S1, S2, Irregular Rhythm Abdomen: Positive for: Normal Bowel Sounds, Other (reducible umbilical hernia ). Negative for: Tenderness, Distention Lower Extremity: Positive for: Normal Inspection. Negative for: Edema Neurological: Positive for: Other (GCS 10) Skin: Positive for: Warm, Dry, Normal Color Psychiatric: Positive for: Alert - Medications Active Medications: Active Medications Generic Name Dose Route Start Last Admin Trade Name Freq PRN Reason Stop Dose Admin Acetaminophen 650 mg 08/04/18 13:44 08/05/18 14:04 Tylenol 325mg Tab PO 650 mg Q6H PRN Administration Fever >100.4 F Apixaban 5 mg 08/06/18 18:00 08/06/18 17:09 Eliquis PO 5 mg BID [facility] Administration Protocol Aspirin 81 mg 08/06/18 10:00 08/07/18 10:42 Aspirin Chewable PO Not Given DAILY [facility] Atorvastatin Calcium 40 mg 07/30/18 17:00 08/07/18 17:36 Lipitor PO 40 mg DIN ANGELES Administration Cholecalciferol 2,000 intlu 07/29/18 10:00 08/07/18 10:46 Vitamin D PO Not Given DAILY [facility] Diltiazem HCl 60 mg 08/05/18 14:00 08/07/18 17:51 Cardizem PO Not Given TID ANGELES Metronidazole 500 mg in 100 mls @ 100 mls/hr 08/04/18 14:30 08/08/18 06:00 Flagyl IVPB 100 mls/hr Q8 [facility] Administration Protocol Cefepime HCl 1 gm in 100 mls @ 100 mls/hr 08/06/18 10:00 08/07/18 21:29 Maxipime 1gm IVPB 100 mls/hr Q12 [facility] Administration Protocol Insulin Human Regular 0 units 07/28/18 22:00 08/07/18 22:14 Humulin R Med SC Not Given ACHS [facility] Protocol Lorazepam 0.25 mg 08/03/18 10:23 08/07/18 00:19 Ativan PO 0.25 mg Q6 PRN Administration Anxiety Protocol Mesalamine 4 gm 08/05/18 10:00 08/07/18 18:46 Rowasa Enema RC 4 gm BID ANGELES Administration Mesalamine 500 mg 08/05/18 10:00 08/07/18 21:29 Pentasa PO Not Given QID [facility] Metoprolol Tartrate 5 mg 08/07/18 11:28 Lopressor IVP ONCE PRN Other Ondansetron HCl 4 mg 08/04/18 12:59 08/06/18 06:39 Zofran Inj IVP 4 mg Q4H PRN Administration Nausea/Vomiting Pantoprazole Sodium 40 mg 07/29/18 06:00 08/08/18 06:00 Protonix Ec Tab PO 40 mg 0600 [facility] Administration Quetiapine Fumarate 12.5 mg 08/04/18 12:46 08/06/18 23:08 Seroquel PO 12.5 mg HS PRN Administration Agitation Protocol - Patient Studies Lab Studies: Microbiology Studies 08/05/18 17:30 Urine Culture - Final Urine,Catheterized No Growth (<1,000 CFU/ML) 08/05/18 16:45 Blood Culture - Preliminary Blood NO GROWTH AFTER 48 HOURS Lab Studies 08/08/18 08/08/18 08/08/18 Range/Units 05:29 05:29 02:19 WBC 4.1 L 4.9 D (4.5-11.0) 10^3/uL RBC 3.69 3.64 (3.5-6.1) 10^6/uL Hgb 10.9 L 10.9 L D (12.0-16.0) g/dL Hct 31.8 L 31.6 L (36.0-48.0) % MCV 86.2 86.8 (80.0-105.0) fl MCH 29.5 29.9 (25.0-35.0) pg MCHC 34.3 34.5 (31.0-37.0) g/dl RDW 18.1 H 18.1 H (11.5-14.5) % Plt Count 77 L 83 L (120.0-450.0) 10^3/uL MPV 9.4 10.2 (7.0-11.0) fl Gran % (50.0-68.0) % Lymph % (Auto) (22.0-35.0) % [place] % (Auto) (1.0-6.0) % Eos % (Auto) (1.5-5.0) % Baso % (Auto) (0.0-3.0) % Gran # (1.4-6.5) Lymph # (Auto) (1.2-3.4) [place] # (Auto) (0.1-0.6) Eos # (Auto) (0.0-0.7) Baso # (Auto) (0.0-2.0) K/mm3 PT (9.4-12.5) SECONDS INR Sodium 132 (132-148) mmol/L Potassium 3.9 (3.6-5.0) mmol/L Chloride 108 H (98-107) mmol/L Carbon Dioxide 18 L (21-33) mmol/L Anion Gap 10 (10-20) BUN 25 H (7-21) mg/dL Creatinine 1.3 H (0.7-1.2) mg/dl Est GFR ( Amer) 48 Est GFR (Non-Af Amer) 40 POC Glucose (mg/dL) (65-110) mg/dL Random Glucose 66 L (70-110) mg/dL Calcium 8.0 L (8.4-10.5) mg/dL Phosphorus 3.2 (2.5-4.5) mg/dL Magnesium 1.9 (1.7-2.2) mg/dL Total Bilirubin 0.9 (0.2-1.3) mg/dL AST 108 H D (14-36) U/L ALT 69 H (7-56) U/L Alkaline Phosphatase 164 H D (38-126) U/L Total Protein 3.8 L (5.8-8.3) g/dL Albumin 1.5 L (3.0-4.8) g/dL Globulin 2.3 gm/dL Albumin/Globulin Ratio 0.7 L (1.1-1.8) Procalcitonin (0.19-0.49) NG/ML Blood Type Antibody Screen Crossmatch BBK History Checked 08/07/18 08/07/18 08/07/18 Range/Units 14:00 11:40 11:40 WBC 6.6 6.1 (4.5-11.0) 10^3/uL RBC 2.85 L 3.15 L (3.5-6.1) 10^6/uL Hgb 8.1 L 9.1 L (12.0-16.0) g/dL Hct 24.7 L 27.2 L (36.0-48.0) % MCV 86.7 86.3 (80.0-105.0) fl MCH 28.4 28.9 (25.0-35.0) pg MCHC 32.8 33.5 (31.0-37.0) g/dl RDW 19.3 H 19.3 H (11.5-14.5) % Plt Count 106 L 108 L (120.0-450.0) 10^3/uL MPV 8.6 8.8 (7.0-11.0) fl Gran % 85.2 H (50.0-68.0) % Lymph % (Auto) 7.1 L (22.0-35.0) % [place] % (Auto) 7.5 H (1.0-6.0) % Eos % (Auto) 0.0 L (1.5-5.0) % Baso % (Auto) 0.2 (0.0-3.0) % Gran # 5.66 (1.4-6.5) Lymph # (Auto) 0.5 L (1.2-3.4) [place] # (Auto) 0.5 (0.1-0.6) Eos # (Auto) 0.0 (0.0-0.7) Baso # (Auto) 0.01 (0.0-2.0) K/mm3 PT (9.4-12.5) SECONDS INR Sodium (132-148) mmol/L Potassium (3.6-5.0) mmol/L Chloride (98-107) mmol/L Carbon Dioxide (21-33) mmol/L Anion Gap (10-20) BUN (7-21) mg/dL Creatinine (0.7-1.2) mg/dl Est GFR ( Amer) Est GFR (Non-Af Amer) POC Glucose (mg/dL) (65-110) mg/dL Random Glucose (70-110) mg/dL Calcium (8.4-10.5) mg/dL Phosphorus (2.5-4.5) mg/dL Magnesium (1.7-2.2) mg/dL Total Bilirubin (0.2-1.3) mg/dL AST (14-36) U/L ALT (7-56) U/L Alkaline Phosphatase (38-126) U/L Total Protein (5.8-8.3) g/dL Albumin (3.0-4.8) g/dL Globulin gm/dL Albumin/Globulin Ratio (1.1-1.8) Procalcitonin (0.19-0.49) NG/ML Blood Type A POSITIVE Antibody Screen Negative Crossmatch See Detail BBK History Checked Patient has bt 08/07/18 08/07/18 08/07/18 Range/Units 11:18 09:00 08:50 WBC (4.5-11.0) 10^3/uL RBC (3.5-6.1) 10^6/uL Hgb (12.0-16.0) g/dL Hct (36.0-48.0) % MCV (80.0-105.0) fl MCH (25.0-35.0) pg MCHC (31.0-37.0) g/dl RDW (11.5-14.5) % Plt Count (120.0-450.0) 10^3/uL MPV (7.0-11.0) fl Gran % (50.0-68.0) % Lymph % (Auto) (22.0-35.0) % [place] % (Auto) (1.0-6.0) % Eos % (Auto) (1.5-5.0) % Baso % (Auto) (0.0-3.0) % Gran # (1.4-6.5) Lymph # (Auto) (1.2-3.4) [place] # (Auto) (0.1-0.6) Eos # (Auto) (0.0-0.7) Baso # (Auto) (0.0-2.0) K/mm3 PT 28.2 H (9.4-12.5) SECONDS INR 2.41 Sodium (132-148) mmol/L Potassium (3.6-5.0) mmol/L Chloride (98-107) mmol/L Carbon Dioxide (21-33) mmol/L Anion Gap (10-20) BUN (7-21) mg/dL Creatinine (0.7-1.2) mg/dl Est GFR ( Amer) Est GFR (Non-Af Amer) POC Glucose (mg/dL) 71 (65-110) mg/dL Random Glucose (70-110) mg/dL Calcium (8.4-10.5) mg/dL Phosphorus (2.5-4.5) mg/dL Magnesium (1.7-2.2) mg/dL Total Bilirubin (0.2-1.3) mg/dL AST (14-36) U/L ALT (7-56) U/L Alkaline Phosphatase (38-126) U/L Total Protein (5.8-8.3) g/dL Albumin (3.0-4.8) g/dL Globulin gm/dL Albumin/Globulin Ratio (1.1-1.8) Procalcitonin 2.96 H (0.19-0.49) NG/ML Blood Type Antibody Screen Crossmatch BBK History Checked 08/07/18 08/07/18 Range/Units 08:50 08:50 WBC 5.5 (4.5-11.0) 10^3/uL RBC 3.09 L (3.5-6.1) 10^6/uL Hgb 8.9 L (12.0-16.0) g/dL Hct 26.7 L (36.0-48.0) % MCV 86.4 (80.0-105.0) fl MCH 28.8 (25.0-35.0) pg MCHC 33.3 (31.0-37.0) g/dl RDW 19.3 H (11.5-14.5) % Plt Count 102 L (120.0-450.0) 10^3/uL MPV 9.0 (7.0-11.0) fl Gran % (50.0-68.0) % Lymph % (Auto) (22.0-35.0) % [place] % (Auto) (1.0-6.0) % Eos % (Auto) (1.5-5.0) % Baso % (Auto) (0.0-3.0) % Gran # (1.4-6.5) Lymph # (Auto) (1.2-3.4) [place] # (Auto) (0.1-0.6) Eos # (Auto) (0.0-0.7) Baso # (Auto) (0.0-2.0) K/mm3 PT (9.4-12.5) SECONDS INR Sodium 129 L (132-148) mmol/L Potassium 3.9 (3.6-5.0) mmol/L Chloride 105 (98-107) mmol/L Carbon Dioxide 18 L (21-33) mmol/L Anion Gap 10 (10-20) BUN 24 H (7-21) mg/dL Creatinine 1.2 (0.7-1.2) mg/dl Est GFR ( Amer) 53 Est GFR (Non-Af Amer) 43 POC Glucose (mg/dL) (65-110) mg/dL Random Glucose 71 (70-110) mg/dL Calcium 7.6 L (8.4-10.5) mg/dL Phosphorus 2.7 (2.5-4.5) mg/dL Magnesium 1.6 L (1.7-2.2) mg/dL Total Bilirubin 0.4 (0.2-1.3) mg/dL AST 48 H D (14-36) U/L ALT 63 H (7-56) U/L Alkaline Phosphatase 110 (38-126) U/L Total Protein 3.8 L (5.8-8.3) g/dL Albumin 1.4 L (3.0-4.8) g/dL Globulin 2.4 gm/dL Albumin/Globulin Ratio 0.6 L (1.1-1.8) Procalcitonin (0.19-0.49) NG/ML Blood Type Antibody Screen Crossmatch BBK History Checked Laboratory Results - last 24 hr 08/07/18 08/07/18 08/07/18 08:50 08:50 08:50 WBC 5.5 RBC 3.09 L Hgb 8.9 L Hct 26.7 L MCV 86.4 MCH 28.8 MCHC 33.3 RDW 19.3 H Plt Count 102 L MPV 9.0 Gran % Lymph % (Auto) [place] % (Auto) Eos % (Auto) Baso % (Auto) Gran # Lymph # (Auto) [place] # (Auto) Eos # (Auto) Baso # (Auto) PT INR Sodium 129 L Potassium 3.9 Chloride 105 Carbon Dioxide 18 L Anion Gap 10 BUN 24 H Creatinine 1.2 Est GFR ( Amer) 53 Est GFR (Non-Af Amer) 43 POC Glucose (mg/dL) Random Glucose 71 Calcium 7.6 L Phosphorus 2.7 Magnesium 1.6 L Total Bilirubin 0.4 AST 48 H D ALT 63 H Alkaline Phosphatase 110 Total Protein 3.8 L Albumin 1.4 L Globulin 2.4 Albumin/Globulin Ratio 0.6 L Procalcitonin 2.96 H Blood Type Antibody Screen Crossmatch BBK History Checked 08/07/18 08/07/18 08/07/18 09:00 11:18 11:40 WBC 6.1 RBC 3.15 L Hgb 9.1 L Hct 27.2 L MCV 86.3 MCH 28.9 MCHC 33.5 RDW 19.3 H Plt Count 108 L MPV 8.8 Gran % Lymph % (Auto) [place] % (Auto) Eos % (Auto) Baso % (Auto) Gran # Lymph # (Auto) [place] # (Auto) Eos # (Auto) Baso # (Auto) PT 28.2 H INR 2.41 Sodium Potassium Chloride Carbon Dioxide Anion Gap BUN Creatinine Est GFR ( Amer) Est GFR (Non-Af Amer) POC Glucose (mg/dL) 71 Random Glucose Calcium Phosphorus Magnesium Total Bilirubin AST ALT Alkaline Phosphatase Total Protein Albumin Globulin Albumin/Globulin Ratio Procalcitonin Blood Type Antibody Screen Crossmatch BBK History Checked 08/07/18 08/07/18 08/08/18 11:40 14:00 02:19 WBC 6.6 4.9 D RBC 2.85 L 3.64 Hgb 8.1 L 10.9 L D Hct 24.7 L 31.6 L MCV 86.7 86.8 MCH 28.4 29.9 MCHC 32.8 34.5 RDW 19.3 H 18.1 H Plt Count 106 L 83 L MPV 8.6 10.2 Gran % 85.2 H Lymph % (Auto) 7.1 L [place] % (Auto) 7.5 H Eos % (Auto) 0.0 L Baso % (Auto) 0.2 Gran # 5.66 Lymph # (Auto) 0.5 L [place] # (Auto) 0.5 Eos # (Auto) 0.0 Baso # (Auto) 0.01 PT INR Sodium Potassium Chloride Carbon Dioxide Anion Gap BUN Creatinine Est GFR ( Amer) Est GFR (Non-Af Amer) POC Glucose (mg/dL) Random Glucose Calcium Phosphorus Magnesium Total Bilirubin AST ALT Alkaline Phosphatase Total Protein Albumin Globulin Albumin/Globulin Ratio Procalcitonin Blood Type A POSITIVE Antibody Screen Negative Crossmatch See Detail BBK History Checked Patient has bt 08/08/18 08/08/18 05:29 05:29 WBC 4.1 L RBC 3.69 Hgb 10.9 L Hct 31.8 L MCV 86.2 MCH 29.5 MCHC 34.3 RDW 18.1 H Plt Count 77 L MPV 9.4 Gran % Lymph % (Auto) [place] % (Auto) Eos % (Auto) Baso % (Auto) Gran # Lymph # (Auto) [place] # (Auto) Eos # (Auto) Baso # (Auto) PT INR Sodium 132 Potassium 3.9 Chloride 108 H Carbon Dioxide 18 L Anion Gap 10 BUN 25 H Creatinine 1.3 H Est GFR ( Amer) 48 Est GFR (Non-Af Amer) 40 POC Glucose (mg/dL) Random Glucose 66 L Calcium 8.0 L Phosphorus 3.2 Magnesium 1.9 Total Bilirubin 0.9 AST 108 H D ALT 69 H Alkaline Phosphatase 164 H D Total Protein 3.8 L Albumin 1.5 L Globulin 2.3 Albumin/Globulin Ratio 0.7 L Procalcitonin Blood Type Antibody Screen Crossmatch BBK History Checked Fingerstick Blood Sugar Results: 84 Review of Systems - Review of Systems Review of Systems: per HPI Critical Care Progress Note - Nutrition Nutrition: Nutrition Category Date Time Status NPO Diet [DIET] Diets 08/07/18 Breakfast Ordered Assessment/Plan - Assessment and Plan (Free Text) Assessment: 77 year old female with a PMH of HTN, DM, JOSE, Chron's disease, dementia and now new stroke and new onset atrial fibrillation who now presents with multiple episodes of hematochezia. Plan: Neuro GCS 10 Baseline dementia with worsening delirium in setting of both new stroke and need for ativan for agitation Psych has been following for agitation as well as suicidal ideation, recs appreciated Continue ativan and seroquel PRN Neuro following for new stroke, recs also noted Imaging and official reads for head CT, CTA and brain MRI reviewed by me Cardio s/p 2u pRBC transfusion overnight. Hgb improved to 10.9 Active bleeding with tachycardia and hypotension Will be monitoring blood pressure closely in ICU Echo showed HFpEF = diastolic dysfunction New onset Afib, CHADSVASC 7 (11.2% year stroke risk) but recent bleeding event so off eliquis (received one dose yesterday) and off ASA HASBLED 5 (9.1% risk of bleeding) Maintain MAP >65 Strict IxOs, daily weights Pulm Protecting airway, satting well PRN O2 NC 2L Will continue to monitor GI Scheduled for flex sig/colonoscopy today Having active hematochezia from possible GI bleed, however bleeding scan negative Abd/pelvis CT shows likely pancolitis, on cefepime and flagyl per ID recs Will monitor bowel movements Does have history of chron's, possible this is bloody bowel movements from this On mesalamine, continue PRN zofran Nephro/Electrolytes Pt has been hypoglycemic. Start D5/0.45NS@100 BUN and Cr slightly above baseline Pseudohypocalcemia 2/2 hypoalbuminemia with some edema noted, will given albumin x1 and re-evaluate Monitor fluid status closely, strict I&Os Heme As above, possible active GI bleed with active hematochezia, tachycardia and hypotension Will manage in ICU GI to scope today s/p 2u pRBC. Hgb 8.1 --> 10.9 ID ID following, on cefepime and flagyl for likely pancolitis GI/DVT ppx: protonix/SCDs, no medical AC due to bleeding Dispo: Pt is resting comfortably in bed. She has altered mental status, likely 2/2 underlying dementia/delirium. She is s/p 2u pRBC with increase in hemoglobin level. She is to undergo flex sigmoidoscopy/colonoscopy today. Her vital signs have been stable. Her electrolytes have been repleted prn. She is hemodynamically stable. We will monitor closely in ICU Patient was seen and examined and case was discussed at length with attending refinery operator coking Dr. Bautista. <Ruel Bautista - Last Filed: 08/08/18 14:24> CCU Objective - Vital Signs / Intake & Output Vital Signs (Last 4 hours): Vital Signs Temp 08/08/18 12:00 98.2 F Intake and Output (Last 8hrs): Intake & Output 08/07/18 08/08/18 08/08/18 22:59 06:59 14:59 Intake Total 735 1095 Output Total 30 200 Balance 705 895 Weight 76.385 kg Intake: IV 300 Left Forearm 300 Oral 60 120 Blood Product 325 975 Red Blood Cells Cpd As1 0 325 Lr Unit [id number] Red Blood Cells Cpd As1 325 Lr Unit [id number] Other 50 Red Blood Cells Cpd As1 50 Lr Unit [id number] Output: Urine 30 200 Urethral (Lugo) 30 200 Emesis 0 Other: # Bowel Movements 1 - Medications Active Medications: Active Medications Generic Name Dose Route Start Last Admin Trade Name Freq PRN Reason Stop Dose Admin Acetaminophen 650 mg 08/04/18 13:44 08/05/18 14:04 Tylenol 325mg Tab PO 650 mg Q6H PRN Administration Fever >100.4 F Apixaban 5 mg 08/06/18 18:00 08/06/18 17:09 Eliquis PO 5 mg BID [facility] Administration Protocol Aspirin 81 mg 08/06/18 10:00 08/07/18 10:42 Aspirin Chewable PO Not Given DAILY [facility] Atorvastatin Calcium 40 mg 07/30/18 17:00 08/07/18 17:36 Lipitor PO 40 mg DIN ANGELES Administration Cholecalciferol 2,000 intlu 07/29/18 10:00 08/08/18 10:24 Vitamin D PO Not Given DAILY [facility] Diltiazem HCl 60 mg 08/05/18 14:00 08/08/18 10:23 Cardizem PO Not Given TID ANGELES Metronidazole 500 mg in 100 mls @ 100 mls/hr 08/04/18 14:30 08/08/18 06:00 Flagyl IVPB 100 mls/hr Q8 [facility] Administration Protocol Cefepime HCl 1 gm in 100 mls @ 100 mls/hr 08/06/18 10:00 08/07/18 21:29 Maxipime 1gm IVPB 100 mls/hr Q12 [facility] Administration Protocol Dextrose/Sodium Chloride 1,000 mls @ 100 mls/hr 08/08/18 09:00 08/08/18 08:57 Dextrose 5%/0.45% Ns 1000 Ml IV 100 mls/hr .Q10H [facility] Administration Sodium Chloride 1,000 mls @ 75 mls/hr 08/08/18 13:15 Sodium Chloride 0.9% IV 08/08/18 15:16 .[id number] [facility] Insulin Human Regular 0 units 07/28/18 22:00 08/08/18 09:46 Humulin R Med SC Not Given ACHS [facility] Protocol Lorazepam 0.25 mg 08/03/18 10:23 08/07/18 00:19 Ativan PO 0.25 mg Q6 PRN Administration Anxiety Protocol Mesalamine 4 gm 08/05/18 10:00 08/08/18 10:24 Rowasa Enema RC Not Given BID [facility] Mesalamine 500 mg 08/05/18 10:00 08/08/18 10:23 Pentasa PO Not Given QID [facility] Metoprolol Tartrate 5 mg 08/07/18 11:28 Lopressor IVP ONCE PRN Other Ondansetron HCl 4 mg 08/04/18 12:59 08/06/18 06:39 Zofran Inj IVP 4 mg Q4H PRN Administration Nausea/Vomiting Pantoprazole Sodium 40 mg 07/29/18 06:00 08/08/18 06:00 Protonix Ec Tab PO 40 mg 0600 [facility] Administration Quetiapine Fumarate 12.5 mg 08/04/18 12:46 08/06/18 23:08 Seroquel PO 12.5 mg HS PRN Administration Agitation Protocol - Patient Studies Lab Studies: Microbiology Studies 08/05/18 17:30 Urine Culture - Final Urine,Catheterized No Growth (<1,000 CFU/ML) 08/05/18 16:45 Blood Culture - Preliminary Blood NO GROWTH AFTER 48 HOURS Lab Studies 08/08/18 08/08/18 08/08/18 Range/Units 11:50 07:55 05:29 WBC 3.0 L D (4.5-11.0) 10^3/uL RBC 3.16 L (3.5-6.1) 10^6/uL Hgb 9.4 L (12.0-16.0) g/dL Hct 26.9 L (36.0-48.0) % MCV 85.1 (80.0-105.0) fl MCH 29.7 (25.0-35.0) pg MCHC 34.9 (31.0-37.0) g/dl RDW 18.4 H (11.5-14.5) % Plt Count 79 L (120.0-450.0) 10^3/uL MPV 8.7 (7.0-11.0) fl Sodium 132 (132-148) mmol/L Potassium 3.9 (3.6-5.0) mmol/L Chloride 108 H (98-107) mmol/L Carbon Dioxide 18 L (21-33) mmol/L Anion Gap 10 (10-20) BUN 25 H (7-21) mg/dL Creatinine 1.3 H (0.7-1.2) mg/dl Est GFR ( Amer) 48 Est GFR (Non-Af Amer) 40 POC Glucose (mg/dL) 70 (65-110) mg/dL Random Glucose 66 L (70-110) mg/dL Calcium 8.0 L (8.4-10.5) mg/dL Phosphorus 3.2 (2.5-4.5) mg/dL Magnesium 1.9 (1.7-2.2) mg/dL Total Bilirubin 0.9 (0.2-1.3) mg/dL AST 108 H D (14-36) U/L ALT 69 H (7-56) U/L Alkaline Phosphatase 164 H D (38-126) U/L Total Protein 3.8 L (5.8-8.3) g/dL Albumin 1.5 L (3.0-4.8) g/dL Globulin 2.3 gm/dL Albumin/Globulin Ratio 0.7 L (1.1-1.8) Procalcitonin (0.19-0.49) NG/ML Blood Type Antibody Screen Crossmatch BBK History Checked 08/08/18 08/08/18 08/07/18 Range/Units 05:29 02:19 21:44 WBC 4.1 L 4.9 D (4.5-11.0) 10^3/uL RBC 3.69 3.64 (3.5-6.1) 10^6/uL Hgb 10.9 L 10.9 L D (12.0-16.0) g/dL Hct 31.8 L 31.6 L (36.0-48.0) % MCV 86.2 86.8 (80.0-105.0) fl MCH 29.5 29.9 (25.0-35.0) pg MCHC 34.3 34.5 (31.0-37.0) g/dl RDW 18.1 H 18.1 H (11.5-14.5) % Plt Count 77 L 83 L (120.0-450.0) 10^3/uL MPV 9.4 10.2 (7.0-11.0) fl Sodium (132-148) mmol/L Potassium (3.6-5.0) mmol/L Chloride (98-107) mmol/L Carbon Dioxide (21-33) mmol/L Anion Gap (10-20) BUN (7-21) mg/dL Creatinine (0.7-1.2) mg/dl Est GFR ( Amer) Est GFR (Non-Af Amer) POC Glucose (mg/dL) 81 (65-110) mg/dL Random Glucose (70-110) mg/dL Calcium (8.4-10.5) mg/dL Phosphorus (2.5-4.5) mg/dL Magnesium (1.7-2.2) mg/dL Total Bilirubin (0.2-1.3) mg/dL AST (14-36) U/L ALT (7-56) U/L Alkaline Phosphatase (38-126) U/L Total Protein (5.8-8.3) g/dL Albumin (3.0-4.8) g/dL Globulin gm/dL Albumin/Globulin Ratio (1.1-1.8) Procalcitonin (0.19-0.49) NG/ML Blood Type Antibody Screen Crossmatch BBK History Checked 08/07/18 08/07/18 08/07/18 Range/Units 17:21 11:40 11:18 WBC (4.5-11.0) 10^3/uL RBC (3.5-6.1) 10^6/uL Hgb (12.0-16.0) g/dL Hct (36.0-48.0) % MCV (80.0-105.0) fl MCH (25.0-35.0) pg MCHC (31.0-37.0) g/dl RDW (11.5-14.5) % Plt Count (120.0-450.0) 10^3/uL MPV (7.0-11.0) fl Sodium (132-148) mmol/L Potassium (3.6-5.0) mmol/L Chloride (98-107) mmol/L Carbon Dioxide (21-33) mmol/L Anion Gap (10-20) BUN (7-21) mg/dL Creatinine (0.7-1.2) mg/dl Est GFR ( Amer) Est GFR (Non-Af Amer) POC Glucose (mg/dL) 76 71 (65-110) mg/dL Random Glucose (70-110) mg/dL Calcium (8.4-10.5) mg/dL Phosphorus (2.5-4.5) mg/dL Magnesium (1.7-2.2) mg/dL Total Bilirubin (0.2-1.3) mg/dL AST (14-36) U/L ALT (7-56) U/L Alkaline Phosphatase (38-126) U/L Total Protein (5.8-8.3) g/dL Albumin (3.0-4.8) g/dL Globulin gm/dL Albumin/Globulin Ratio (1.1-1.8) Procalcitonin (0.19-0.49) NG/ML Blood Type A POSITIVE Antibody Screen Negative Crossmatch See Detail BBK History Checked Patient has bt 08/07/18 Range/Units 08:50 WBC (4.5-11.0) 10^3/uL RBC (3.5-6.1) 10^6/uL Hgb (12.0-16.0) g/dL Hct (36.0-48.0) % MCV (80.0-105.0) fl MCH (25.0-35.0) pg MCHC (31.0-37.0) g/dl RDW (11.5-14.5) % Plt Count (120.0-450.0) 10^3/uL MPV (7.0-11.0) fl Sodium (132-148) mmol/L Potassium (3.6-5.0) mmol/L Chloride (98-107) mmol/L Carbon Dioxide (21-33) mmol/L Anion Gap (10-20) BUN (7-21) mg/dL Creatinine (0.7-1.2) mg/dl Est GFR ( Amer) Est GFR (Non-Af Amer) POC Glucose (mg/dL) (65-110) mg/dL Random Glucose (70-110) mg/dL Calcium (8.4-10.5) mg/dL Phosphorus (2.5-4.5) mg/dL Magnesium (1.7-2.2) mg/dL Total Bilirubin (0.2-1.3) mg/dL AST (14-36) U/L ALT (7-56) U/L Alkaline Phosphatase (38-126) U/L Total Protein (5.8-8.3) g/dL Albumin (3.0-4.8) g/dL Globulin gm/dL Albumin/Globulin Ratio (1.1-1.8) Procalcitonin 2.96 H (0.19-0.49) NG/ML Blood Type Antibody Screen Crossmatch BBK History Checked Laboratory Results - last 24 hr 08/07/18 08/07/18 08/07/18 08:50 11:18 11:40 WBC RBC Hgb Hct MCV MCH MCHC RDW Plt Count MPV Sodium Potassium Chloride Carbon Dioxide Anion Gap BUN Creatinine Est GFR ( Amer) Est GFR (Non-Af Amer) POC Glucose (mg/dL) 71 Random Glucose Calcium Phosphorus Magnesium Total Bilirubin AST ALT Alkaline Phosphatase Total Protein Albumin Globulin Albumin/Globulin Ratio Procalcitonin 2.96 H Blood Type A POSITIVE Antibody Screen Negative Crossmatch See Detail BBK History Checked Patient has bt 08/07/18 08/07/18 08/08/18 17:21 21:44 02:19 WBC 4.9 D RBC 3.64 Hgb 10.9 L D Hct 31.6 L MCV 86.8 MCH 29.9 MCHC 34.5 RDW 18.1 H Plt Count 83 L MPV 10.2 Sodium Potassium Chloride Carbon Dioxide Anion Gap BUN Creatinine Est GFR ( Amer) Est GFR (Non-Af Amer) POC Glucose (mg/dL) 76 81 Random Glucose Calcium Phosphorus Magnesium Total Bilirubin AST ALT Alkaline Phosphatase Total Protein Albumin Globulin Albumin/Globulin Ratio Procalcitonin Blood Type Antibody Screen Crossmatch BBK History Checked 08/08/18 08/08/18 08/08/18 05:29 05:29 07:55 WBC 4.1 L RBC 3.69 Hgb 10.9 L Hct 31.8 L MCV 86.2 MCH 29.5 MCHC 34.3 RDW 18.1 H Plt Count 77 L MPV 9.4 Sodium 132 Potassium 3.9 Chloride 108 H Carbon Dioxide 18 L Anion Gap 10 BUN 25 H Creatinine 1.3 H Est GFR ( Amer) 48 Est GFR (Non-Af Amer) 40 POC Glucose (mg/dL) 70 Random Glucose 66 L Calcium 8.0 L Phosphorus 3.2 Magnesium 1.9 Total Bilirubin 0.9 AST 108 H D ALT 69 H Alkaline Phosphatase 164 H D Total Protein 3.8 L Albumin 1.5 L Globulin 2.3 Albumin/Globulin Ratio 0.7 L Procalcitonin Blood Type Antibody Screen Crossmatch BBK History Checked 08/08/18 11:50 WBC 3.0 L D RBC 3.16 L Hgb 9.4 L Hct 26.9 L MCV 85.1 MCH 29.7 MCHC 34.9 RDW 18.4 H Plt Count 79 L MPV 8.7 Sodium Potassium Chloride Carbon Dioxide Anion Gap BUN Creatinine Est GFR ( Amer) Est GFR (Non-Af Amer) POC Glucose (mg/dL) Random Glucose Calcium Phosphorus Magnesium Total Bilirubin AST ALT Alkaline Phosphatase Total Protein Albumin Globulin Albumin/Globulin Ratio Procalcitonin Blood Type Antibody Screen Crossmatch BBK History Checked Critical Care Progress Note - Nutrition Nutrition: Nutrition Category Date Time Status NPO Diet [DIET] Diets 08/07/18 Breakfast Ordered Addendum Addendum: 08/08/18 14:23 MICU Attending Patient seen and examined with housestaff. Agree with note above with the following add/except: 77 year old female with a PMH of HTN, DM, JOSE, Chron's disease, dementia and now new stroke and new onset atrial fibrillation who now presents with multiple episodes of hematochezia. She was started on eliquis and later devloped rectal bleeding. HB stable now awaiting GI endoscopy hemodynamically stable incr LFTs slightly today, possibly from low BP no more transfusions for now holding antiplat for now neuro on consult for stroke management rest of care as above Ruel Bautista MD Pulm/CC/Sleep
[2018-08-08] MEDS: Dextrose 5%/0.45% NS 1,000 ML IV SCH (08:57)
[2018-08-08] MEDS: Insulin Reg-MEDIUM-Coverage SC SCH ×4 (09:46→21:40)
[2018-08-08] MEDS: Mesalamine ER Cap 500 MG PO SCH ×4 (10:23→21:36)
[2018-08-08] MEDS: Cholecalciferol 1,000 INTLU TAB PO SCH (10:24)
--- NOTE | 2018-08-08 10:52 | CP.PCM.PN ---
<Walter Tijerina - Last Filed: 08/08/18 12:16> Subjective - Date & Time of Evaluation Date of Evaluation: 08/08/18 Time of Evaluation: 11:00 - Subjective Subjective: Walter Tijerina- Internal Medicine Resident- Consult Note on Behalf of Neurology Team Subjective: Patient seen and examined at bedside. No acute neurological changes overnight. Offers no new complaints at this time. Follows commands. Denies weakness, dizziness, headache, numbness, and focal deficits. 12 point ROS negative except as indicated in the HPI Physical Examination: - Constitutional Appears: Well, Non-toxic, No Acute Distress - Head Exam Head Exam: ATRAUMATIC, NORMAL INSPECTION, NORMOCEPHALIC - Eye Exam Eye Exam: EOMI, Normal appearance - ENT Exam ENT Exam: Mucous Membranes Moist, Normal Exam, No tongue laceration - Neck Exam Neck exam: Positive for: Full Rom, Normal Inspection - Respiratory Exam Respiratory Exam: Clear to Auscultation Bilateral, NORMAL BREATHING PATTERN. absent: Accessory Muscle Use, Rales, Rhonchi, Wheezes, Respiratory Distress - Cardiovascular Exam Cardiovascular Exam: REGULAR RHYTHM, +S1, +S2 - GI/Abdominal Exam GI & Abdominal Exam: Normal Bowel Sounds, Soft. absent: Distended, Firm, Guarding, Rebound, Rigid, Tenderness - Extremities Exam Extremities exam: negative for clubbing and cyanosis - Neurological Exam Neurological exam: awake, alert, orientated x [address], responds to verbal stimuli, answers questions appropriately, follows commands, moves extrem ities past midline, no neglect noted - Skin Skin Exam: Intact, Normal Color, Warm Assessment and Plan: Patient is a 77 year old female with a past medical history of HTN, DM2, and OA who was admitted for evaluation and treatment of altered mental status and hallucinations/delusions. Neurology was consulted for management of altered mental status. Altered Mental Status -07/28/[address] without contrast- Moderate volume loss and chronic microvascular ischemic disease. No evidence of acute intracranial hemorrhage mass effect or midline shift. - 07/29/2018 Brain MRI with and without contrast- multiple small cortical and subcortical infarcts in both hemispheres right greater than left - 07/30/2018 CTA head and neck- No evidence of stenosis or occlusion, Unremarkable CT Angiography of the Brain. - 07/2018 Echocardiogram- LVEF 63%, moderate to severe aortic regurg - 08/06/2018- CT Head without Contrast- No acute findings - continue with physical therapy, occupation therapy, and speech therapy - recommend neurocognitive therapy on outpatient basis - ok to start eliquis 5mg BID if cleared approved by GI Patient case discussed with and plan approved by attending physician, Dr. Alberts. Objective - Vital Signs/Intake and Output Vital Signs (last 24 hours): Temp Pulse Resp BP Pulse Ox 98.2 F 79 25 H 102/59 L 100 08/08/18 08:00 08/08/18 10:00 08/08/18 08:40 08/08/18 08:00 08/08/18 08:40 Intake and Output: 08/08/18 08/08/18 06:59 18:59 Intake Total 1470 Output Total 200 Balance 1270 - Medications Medications: Current Medications Acetaminophen (Tylenol 325mg Tab) 650 mg PO Q6H PRN PRN Reason: Fever >100.4 F Last Admin: 08/05/18 14:04 Dose: 650 mg Apixaban (Eliquis) 5 mg PO BID [facility]; Protocol Last Admin: 08/06/18 17:09 Dose: 5 mg Aspirin (Aspirin Chewable) 81 mg PO DAILY [facility] Last Admin: 08/07/18 10:42 Dose: Not Given Atorvastatin Calcium (Lipitor) 40 mg PO DIN [facility] Last Admin: 08/07/18 17:36 Dose: 40 mg Cholecalciferol (Vitamin D) 2,000 intlu PO DAILY [facility] Last Admin: 08/08/18 10:24 Dose: Not Given Diltiazem HCl (Cardizem) 60 mg PO TID [facility] Last Admin: 08/08/18 10:23 Dose: Not Given Metronidazole (Flagyl) 500 mg in 100 mls @ 100 mls/hr IVPB Q8 [facility]; Protocol Last Admin: 08/08/18 06:00 Dose: 100 mls/hr Cefepime HCl (Maxipime 1gm) 1 gm in 100 mls @ 100 mls/hr IVPB Q12 [facility]; Protocol Last Admin: 08/07/18 21:29 Dose: 100 mls/hr Dextrose/Sodium Chloride (Dextrose 5%/0.45% Ns 1000 Ml) 1,000 mls @ 100 mls/hr IV .Q10H [facility] Last Admin: 08/08/18 08:57 Dose: 100 mls/hr Insulin Human Regular (Humulin R Med) 0 units SC [facility]; Protocol Last Admin: 08/08/18 09:46 Dose: Not Given Lorazepam (Ativan) 0.25 mg PO Q6 PRN; 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 Reason: Anxiety Last Admin: 08/07/18 00:19 Dose: 0.25 mg Mesalamine (Rowasa Enema) 4 gm RC BID [facility] Last Admin: 08/08/18 10:24 Dose: Not Given Mesalamine (Pentasa) 500 mg PO QID [facility] Last Admin: 08/08/18 10:23 Dose: Not Given Metoprolol Tartrate (Lopressor) 5 mg IVP ONCE PRN PRN Reason: Other Ondansetron HCl (Zofran Inj) 4 mg IVP Q4H PRN PRN Reason: Nausea/Vomiting Last Admin: 08/06/18 06:39 Dose: 4 mg Pantoprazole Sodium (Protonix Ec Tab) 40 mg PO 0600 [facility] Last Admin: 08/08/18 06:00 Dose: 40 mg Quetiapine Fumarate (Seroquel) 12.5 mg PO HS PRN; 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 Reason: Agitation Last Admin: 08/06/18 23:08 Dose: 12.5 mg - Labs Labs: 08/08/18 05:29 08/08/18 05:29 PT 28.2 SECONDS (9.4-12.5) H 08/07/18 09:00 INR 2.41 08/07/18 09:00 APTT 36.0 Seconds (25.1-36.5) 08/01/18 05:30 <Travis Alberts - Last Filed: 08/08/18 19:06> Objective - Vital Signs/Intake and Output Vital Signs (last 24 hours): Temp Pulse Resp BP Pulse Ox 98.8 F 73 14 127/52 L 100 08/08/18 15:04 08/08/18 17:36 08/08/18 15:04 08/08/18 15:04 08/08/18 15:16 Intake and Output: 08/08/18 08/09/18 18:59 06:59 Intake Total 1200 Output Total 220 Balance 980 - Medications Medications: Current Medications Acetaminophen (Tylenol 325mg Tab) 650 mg PO Q6H PRN PRN Reason: Fever >100.4 F Last Admin: 08/05/18 14:04 Dose: 650 mg Apixaban (Eliquis) 5 mg PO BID [facility]; Protocol Last Admin: 08/06/18 17:09 Dose: 5 mg Aspirin (Aspirin Chewable) 81 mg PO DAILY [facility] Last Admin: 08/07/18 10:42 Dose: Not Given Atorvastatin Calcium (Lipitor) 40 mg PO DIN [facility] Last Admin: 08/08/18 16:27 Dose: Not Given Cholecalciferol (Vitamin D) 2,000 intlu PO DAILY [facility] Last Admin: 08/08/18 10:24 Dose: Not Given Diltiazem HCl (Cardizem) 60 mg PO TID [facility] Last Admin: 08/08/18 17:24 Dose: Not Given Metronidazole (Flagyl) 500 mg in 100 mls @ 100 mls/hr IVPB Q8 [facility]; Protocol Last Admin: 08/08/18 15:00 Dose: 100 mls/hr Cefepime HCl (Maxipime 1gm) 1 gm in 100 mls @ 100 mls/hr IVPB Q12 [facility]; Protocol Last Admin: 08/08/18 12:00 Dose: 100 mls/hr Dextrose/Sodium Chloride (Dextrose 5%/0.45% Ns 1000 Ml) 1,000 mls @ 100 mls/hr IV .Q10H [facility] Last Admin: 08/08/18 08:57 Dose: 100 mls/hr Insulin Human Regular (Humulin R Med) 0 units SC ACHS [facility]; Protocol Last Admin: 08/08/18 16:26 Dose: Not Given Lorazepam (Ativan) 0.25 mg PO Q6 PRN; 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 Reason: Anxiety Last Admin: 08/07/18 00:19 Dose: 0.25 mg Mesalamine (Rowasa Enema) 4 gm RC BID [facility] Last Admin: 08/08/18 17:24 Dose: 4 gm Mesalamine (Pentasa) 500 mg PO QID [facility] Last Admin: 08/08/18 17:24 Dose: Not Given Metoprolol Tartrate (Lopressor) 5 mg IVP ONCE PRN PRN Reason: Other Ondansetron HCl (Zofran Inj) 4 mg IVP Q4H PRN PRN Reason: Nausea/Vomiting Last Admin: 08/06/18 06:39 Dose: 4 mg Pantoprazole Sodium (Protonix Ec Tab) 40 mg PO 0600 [facility] Last Admin: 08/08/18 06:00 Dose: 40 mg Quetiapine Fumarate (Seroquel) 12.5 mg PO HS PRN; 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 Reason: Agitation Last Admin: 08/06/18 23:08 Dose: 12.5 mg - Labs Labs: 08/08/18 11:50 08/08/18 05:29 PT 28.2 SECONDS (9.4-12.5) H 08/07/18 09:00 INR 2.41 08/07/18 09:00 APTT 36.0 Seconds (25.1-36.5) 08/01/18 05:30 Assessment and Plan (1) Ischemic stroke Status: Acute Attending/Attestation - Attestation I have personally seen and examined this patient.: Yes I have fully participated in the care of the patient.: Yes I have reviewed all pertinent clinical information, including history, physical exam and plan: Yes Notes (Text): 08/08/18 19:06 I agree with the assessment and plan: - continue with physical therapy, occupation therapy, and speech therapy - recommend neurocognitive therapy on outpatient basis - ok to start eliquis 5mg BID if cleared approved by GI
[2018-08-08] MEDS: Cefepime 1gm in NS 100ml 1 GM/100 ML BAG IVPB SCH ×2 (12:00→21:27)
[2018-08-08 12:06] LABS: HEMOGLOBIN 9.4 g/dL (12.0-16.0); MEAN CELL VOLUME 85.1 fl (80.0-105.0); MEAN CORPUSCULAR HEMOGLOBIN 29.7 pg (25.0-35.0); MEAN CORPUSCULAR HGB CONC 34.9 g/dl (31.0-37.0); MEAN PLATELET VOLUME 8.7 fl (7.0-11.0); RBC 3.16 10^6/uL (3.5-6.1); RED CELL DISTRIBUTION WIDTH 18.4 % (11.5-14.5)
--- NOTE | 2018-08-08 12:40 | CP.PCM.PN ---
<David Sun - Last Filed: 08/08/18 12:36> Subjective - Date & Time of Evaluation Date of Evaluation: 08/08/18 Time of Evaluation: 07:00 - Subjective Subjective: David Sun PGY1 Medicine Progress Note for Dr. Quevedo Patient was seen and examined at bedside this morning. Patient was more agitated this morning. She was not answering questions appropriately, therefore a reliable ROS was unable to be obtained. She is arousable to verbal stimuli. This was similarly discussed with the ICU team. Vital signs are stable, however, BP i s trending in the SBP 90s. No adverse overnight events. Objective - Vital Signs/Intake and Output Vital Signs (last 24 hours): Temp Pulse Resp BP Pulse Ox 98.2 F 79 25 H 102/59 L 100 08/08/18 08:00 08/08/18 10:00 08/08/18 08:40 08/08/18 08:00 08/08/18 08:40 Intake and Output: 08/08/18 08/08/18 06:59 18:59 Intake Total 1470 Output Total 200 Balance 1270 - Medications Medications: Current Medications Acetaminophen (Tylenol 325mg Tab) 650 mg PO Q6H PRN PRN Reason: Fever >100.4 F Last Admin: 08/05/18 14:04 Dose: 650 mg Apixaban (Eliquis) 5 mg PO BID [facility]; Protocol Last Admin: 08/06/18 17:09 Dose: 5 mg Aspirin (Aspirin Chewable) 81 mg PO DAILY [facility] Last Admin: 08/07/18 10:42 Dose: Not Given Atorvastatin Calcium (Lipitor) 40 mg PO DIN [facility] Last Admin: 08/07/18 17:36 Dose: 40 mg Cholecalciferol (Vitamin D) 2,000 intlu PO DAILY [facility] Last Admin: 08/08/18 10:24 Dose: Not Given Diltiazem HCl (Cardizem) 60 mg PO TID [facility] Last Admin: 08/08/18 10:23 Dose: Not Given Metronidazole (Flagyl) 500 mg in 100 mls @ 100 mls/hr IVPB Q8 [facility]; Protocol Last Admin: 08/08/18 06:00 Dose: 100 mls/hr Cefepime HCl (Maxipime 1gm) 1 gm in 100 mls @ 100 mls/hr IVPB Q12 [facility]; Protocol Last Admin: 08/07/18 21:29 Dose: 100 mls/hr Dextrose/Sodium Chloride (Dextrose 5%/0.45% Ns 1000 Ml) 1,000 mls @ 100 mls/hr IV .Q10H [facility] Last Admin: 08/08/18 08:57 Dose: 100 mls/hr Insulin Human Regular (Humulin R Med) 0 units SC ACHS [facility]; Protocol Last Admin: 08/08/18 09:46 Dose: Not Given Lorazepam (Ativan) 0.25 mg PO Q6 PRN; 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 Reason: Anxiety Last Admin: 08/07/18 00:19 Dose: 0.25 mg Mesalamine (Rowasa Enema) 4 gm RC BID [facility] Last Admin: 08/08/18 10:24 Dose: Not Given Mesalamine (Pentasa) 500 mg PO QID [facility] Last Admin: 08/08/18 10:23 Dose: Not Given Metoprolol Tartrate (Lopressor) 5 mg IVP ONCE PRN PRN Reason: Other Ondansetron HCl (Zofran Inj) 4 mg IVP Q4H PRN PRN Reason: Nausea/Vomiting Last Admin: 08/06/18 06:39 Dose: 4 mg Pantoprazole Sodium (Protonix Ec Tab) 40 mg PO 0600 [facility] Last Admin: 08/08/18 06:00 Dose: 40 mg Quetiapine Fumarate (Seroquel) 12.5 mg PO HS PRN; 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 Reason: Agitation Last Admin: 08/06/18 23:08 Dose: 12.5 mg - Labs Labs: 08/08/18 11:50 08/08/18 05:29 PT 28.2 SECONDS (9.4-12.5) H 08/07/18 09:00 INR 2.41 08/07/18 09:00 APTT 36.0 Seconds (25.1-36.5) 08/01/18 05:30 - Constitutional Appears: Combative - Head Exam Head Exam: ATRAUMATIC, NORMAL INSPECTION, NORMOCEPHALIC - Eye Exam Eye Exam: EOMI, Normal appearance, PERRL - Respiratory Exam Respiratory Exam: Clear to Ausculation Bilateral, NORMAL BREATHING PATTERN. absent: Rales, Rhonchi, Wheezes, Respiratory Distress - Cardiovascular Exam Cardiovascular Exam: REGULAR RHYTHM, +S1, +S2. absent: Murmur - GI/Abdominal Exam GI & Abdominal Exam: Soft, Normal Bowel Sounds. absent: Tenderness - Extremities Exam Extremities Exam: absent: Calf Tenderness, Tenderness Additional comments: Patient has bilateral pitting edema, unchanged from prior encounter. - Neurological Exam Neurological Exam: Awake - Psychiatric Exam Psychiatric exam: Agitated - Skin Skin Exam: Dry, Intact, Normal Color, Warm Assessment and Plan - Assessment and Plan (Free Text) Assessment: Patient is a 77 y/o F with PMH of HTN, DM2, OA, COPD, Crohn's disease who presented to ED with family for AMS, delusions, and hallucinations x3 weeks in duration. Patient was admitted to the floor for Delirium 2/2 new watershed stroke. Patient is a candidate for TCU but also had suicidal intent during hospi travon course placed on 1:1, however patient has been cleared by psych and 1:1 precautions was discontinued. Patient also had episodes of GI bleed. Recently, patient had a new onset of Afib with RVR. Given high CHADVASC score, patient started on anticoagulation (Eliquis), however, she now has active bleeding. Patient was subsequently transferred to the ICU for management. Plan: Active GI Bleed - GI is planning for flex sig and endoscopy today to determine source of bleed - Hgb currently 9.4, decrease from 10.9; patient has had a total of x2 pRBCs during hospital course - continue to monitor H/H q4 - continue to hold anticoagulation - ICU consulted. Recommendations appreciated. Patient was given albumin by ICU team. - Bleeding scan (08/05): no evidence of active GI bleed - c/w cefepime and flagyl - c/w mesalamine; Hx of Crohn's disease - CT A/P (08/03): segmental circumferential mucal thickening in proximal small bowel and mild distal descending colon and sigmoid colon. May represent acute, infectious, or inflammatory etiology. Severe diffuse anasarca. Delirium 2/2 New Watershed Stroke - Patient continues to be agitated and lethargic during interview; c/w ativan .25 mg q6 prn - Cardio does not recommend PATRICK - PT recommends acute rehab - Brain MRI (07/30): multiple small cortical and subcortical infarcts in both hemispheres (R>L). Infarcts could be due to hypotensive watershed infarct. - Head/Neck CTA (07/30): negative - Echo (07/31): EF 62%. Mod-severe aortic regurgitation. Mild pulmonary HTN. - Neuro recs appreciated - Psychiatry recs appreciated New onset Afib with RVR - currently rate controlled - Hold anticoagulation; Eliquis and ASA is held at this time due to acute stroke and active GI bleed - c/w cardizem PO TID and Lopressor 5mg IVP prn for HR > 115 with holding parameters - Cardio recs appreciated - EKG (08/05): afib with RVR (132 bpm) Fever with septic workup - resolved - Blood cx no growth after 48 hrs (prelim) - urine cx shows no growth - No fevers overnight; no leukocytosis Suicidal intent - resolved - 1:1 precautions discontinued; cleared by psych - patient verbalized intent and wanted to use plastic knife to hurt herself (08/02) - Psych recs appreciated NSTEMI - elevated troponins 2/2 stroke - No cath at this time. Continue with medical management. - trops 0.18 on admission, repeat trops were .14 -- secondary to stroke Hx of HTN - Recent SBP trending in the 90s - BP meds held at this time - Home meds are Lopressor 25mg BID and norvasc 5mg daily Hx of DM II - avoid hypoglycemia - ISS DVT ppx: SCDs. No anticoagulation at this time. GI ppx: PTX PT: recommends acute rehab Palliative: Patient is DNR/DNI Dispo: GI is planning for endoscopy and flex sig to determine source of bleed. Follow up further recommendations. Case was reviewed and discussed with Attending Physician, Dr. Quevedo. <Milagros Quevedo - Last Filed: 08/08/18 17:04> Objective - Vital Signs/Intake and Output Vital Signs (last 24 hours): Temp Pulse Resp BP Pulse Ox 98.8 F 78 14 127/52 L 100 08/08/18 15:04 08/08/18 15:04 08/08/18 15:04 08/08/18 15:04 08/08/18 15:16 Intake and Output: 08/08/18 08/08/18 06:59 18:59 Intake Total 1470 Output Total 200 Balance 1270 - Medications Medications: Current Medications Acetaminophen (Tylenol 325mg Tab) 650 mg PO Q6H PRN PRN Reason: Fever >100.4 F Last Admin: 08/05/18 14:04 Dose: 650 mg Apixaban (Eliquis) 5 mg PO BID [facility]; Protocol Last Admin: 08/06/18 17:09 Dose: 5 mg Aspirin (Aspirin Chewable) 81 mg PO DAILY [facility] Last Admin: 08/07/18 10:42 Dose: Not Given Atorvastatin Calcium (Lipitor) 40 mg PO DIN [facility] Last Admin: 08/08/18 16:27 Dose: Not Given Cholecalciferol (Vitamin D) 2,000 intlu PO DAILY [facility] Last Admin: 08/08/18 10:24 Dose: Not Given Diltiazem HCl (Cardizem) 60 mg PO TID [facility] Last Admin: 08/08/18 16:24 Dose: Not Given Metronidazole (Flagyl) 500 mg in 100 mls @ 100 mls/hr IVPB Q8 [facility]; Protocol Last Admin: 08/08/18 15:00 Dose: 100 mls/hr Cefepime HCl (Maxipime 1gm) 1 gm in 100 mls @ 100 mls/hr IVPB Q12 [facility]; Protocol Last Admin: 08/08/18 12:00 Dose: 100 mls/hr Dextrose/Sodium Chloride (Dextrose 5%/0.45% Ns 1000 Ml) 1,000 mls @ 100 mls/hr IV .Q10H [facility] Last Admin: 08/08/18 08:57 Dose: 100 mls/hr Insulin Human Regular (Humulin R Med) 0 units SC ACHS [facility]; Protocol Last Admin: 08/08/18 16:26 Dose: Not Given Lorazepam (Ativan) 0.25 mg PO Q6 PRN; 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 Reason: Anxiety Last Admin: 08/07/18 00:19 Dose: 0.25 mg Mesalamine (Rowasa Enema) 4 gm RC BID [facility] Last Admin: 08/08/18 10:24 Dose: Not Given Mesalamine (Pentasa) 500 mg PO QID [facility] Last Admin: 08/08/18 16:27 Dose: Not Given Metoprolol Tartrate (Lopressor) 5 mg IVP ONCE PRN PRN Reason: Other Ondansetron HCl (Zofran Inj) 4 mg IVP Q4H PRN PRN Reason: Nausea/Vomiting Last Admin: 08/06/18 06:39 Dose: 4 mg Pantoprazole Sodium (Protonix Ec Tab) 40 mg PO 0600 [facility] Last Admin: 08/08/18 06:00 Dose: 40 mg Quetiapine Fumarate (Seroquel) 12.5 mg PO HS PRN; 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 Reason: Agitation Last Admin: 08/06/18 23:08 Dose: 12.5 mg - Labs Labs: 08/08/18 11:50 08/08/18 05:29 PT 28.2 SECONDS (9.4-12.5) H 08/07/18 09:00 INR 2.41 08/07/18 09:00 APTT 36.0 Seconds (25.1-36.5) 08/01/18 05:30 Attending/Attestation - Attestation I have personally seen and examined this patient.: Yes I have fully participated in the care of the patient.: Yes I have reviewed all pertinent clinical information, including history, physical exam and plan: Yes Notes (Text): 08/08/18 16:57 77 year old female with past medical history of diabetes, hypertension and COPD who presented with delusions and hallucinations. MRI brain showed multiple small cortical / subcortical infarcts in both hemispheres, right greater than left. Patient also had possible NSTEMI with elevated cardiac enzymes. Patient was started on aspirin and plavix but developed blood in stool. CT abd/pelvis showed segmental circumferential mucal thickening in proximal small bowel and mild distal descending colon and sigmoid colon. She was seen by GI and started on rowasa/pentasa and aspirin was resumed as hemoglobin was stable with no further bleeding episodes. She developed Afib on the monitor and was started on cardizem and apixiban after discussing with cardiology/GI/neurology. Risks and benefits were explained regarding anticoagulation. She had another bleeding episode so anticoagulation was discontinued and patient was transferred to ICU. Bleeding scan was negative. GI follow was requested who is planning for EGD and flex sigmoidoscopy today. Mental status waxes and wanes. Psychiatry is following. Continue with iv antibiotics as per ID. Overall prognosis is guarded. Patient is DNR/DNI. Milagros Quevedo MD Hospitalist.
--- NOTE | 2018-08-08 12:53 | PN ---
DATE: 08/08/2018 SUBJECTIVE: The patient is resting in bed. No shortness of breath. PHYSICAL EXAMINATION: VITAL SIGNS: Blood pressure is 102/59, heart rate is in the 70s. NECK: Negative JVD. LUNGS: Without rales. HEART: S1, S2. EXTREMITIES: Without edema. LABORATORY DATA: Hemoglobin is 10.9. Chemistries, BUN and creatinine are unremarkable. IMPRESSION: 1. Status post gastrointestinal bleed. 2. Cerebrovascular accident. 3. Atrial fibrillation. 4. Hpb-[place]-kzsnizikl myocardial infarction. PLAN: Given these findings, the patient is hemodynamically stable. She is for GI workup today. Tello Talbert MD
[2018-08-08] MEDS ORDERED: Sodium Chloride 0.9% 1,000 ML IV SCH (13:15)
--- NOTE | 2018-08-08 14:30 | CP.PCM.PCO ---
Physician Communication Note - Physician Communication Note Physician Communication Note: POA-Adina Arango-Agrees DNR/DNI rescinded for endoscopic procedures
--- NOTE | 2018-08-08 15:00 | CP.PCM.PN ---
Subjective - Date & Time of Evaluation Date of Evaluation: 08/06/18 Time of Evaluation: 10:10 - Subjective Subjective: No abdominal pain, no fevers, no vomiting. Objective - Vital Signs/Intake and Output Vital Signs (last 24 hours): Temp Pulse Resp BP Pulse Ox 100.9 F H 143 H 19 160/72 H 98 08/05/18 14:22 08/05/18 14:07 08/05/18 12:00 08/05/18 14:07 08/05/18 06:00 Intake and Output: 08/05/18 08/05/18 06:59 18:59 Intake Total 400 120 Output Total 300 Balance 400 -180 - Medications Medications: Current Medications Acetaminophen (Tylenol 325mg Tab) 650 mg PO Q6H PRN PRN Reason: Fever >100.4 F Last Admin: 08/05/18 14:04 Dose: 650 mg Amlodipine Besylate (Norvasc) 5 mg PO DAILY [facility] Last Admin: 07/30/18 10:20 Dose: 5 mg Aspirin (Ecotrin) 325 mg PO DAILY [facility] Last Admin: 08/02/18 11:29 Dose: Not Given Atorvastatin Calcium (Lipitor) 40 mg PO DIN [facility] Last Admin: 08/04/18 17:56 Dose: 40 mg Cholecalciferol (Vitamin D) 2,000 intlu PO DAILY [facility] Last Admin: 08/05/18 10:51 Dose: 2,000 intlu Diltiazem HCl (Cardizem) 60 mg PO TID [facility] Last Admin: 08/05/18 14:07 Dose: 60 mg Metronidazole (Flagyl) 500 mg in 100 mls @ 100 mls/hr IVPB Q8 [facility]; Protocol Last Admin: 08/05/18 14:41 Dose: 100 mls/hr Cefepime HCl (Maxipime 1gm) 1 gm in 100 mls @ 100 mls/hr IVPB Q8 [facility]; Protocol Last Admin: 08/05/18 14:38 Dose: 100 mls/hr Insulin Human Regular (Humulin R Med) 0 units SC ACHS [facility]; Protocol Last Admin: 08/05/18 14:16 Dose: Not Given Lorazepam (Ativan) 0.25 mg PO Q6 PRN; 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 Reason: Anxiety Last Admin: 08/05/18 10:51 Dose: 0.25 mg Mesalamine (Rowasa Enema) 4 gm RC BID [facility] Last Admin: 08/05/18 10:55 Dose: 4 gm Mesalamine (Pentasa) 500 mg PO QID [facility] Last Admin: 08/05/18 14:41 Dose: 500 mg Metoprolol Tartrate (Lopressor) 25 mg PO BID [facility] Last Admin: 08/05/18 14:05 Dose: 25 mg Ondansetron HCl (Zofran Inj) 4 mg IVP Q4H PRN PRN Reason: Nausea/Vomiting Last Admin: 08/04/18 13:13 Dose: 4 mg Pantoprazole Sodium (Protonix Ec Tab) 40 mg PO 0600 [facility] Last Admin: 08/05/18 05:10 Dose: 40 mg Quetiapine Fumarate (Seroquel) 12.5 mg PO HS PRN; 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 Reason: Agitation - Labs Labs: 08/05/18 07:30 08/05/18 08:00 PT 12.6 SECONDS (9.4-12.5) H 08/01/18 05:30 INR 1.09 08/01/18 05:30 APTT 36.0 Seconds (25.1-36.5) 08/01/18 05:30 - Constitutional Appears: Chronically Ill - Head Exam Head Exam: NORMAL INSPECTION - Respiratory Exam Respiratory Exam: Decreased Breath Sounds - Cardiovascular Exam Cardiovascular Exam: +S1, +S2 - GI/Abdominal Exam GI & Abdominal Exam: Soft. absent: Tenderness Assessment and Plan - Assessment and Plan (Free Text) Plan: Assessment consider pancolitis from Crohn's disease, R/O Infectious causes acute CVA HTN DM COPD OA Plan continue Cefepime and Flagyl day 2 and follow up stool cultures; blood cx negative so far are negative, as well and stool for C. diff is negative follow up further plans of GI will continue to monitor clinically
--- NOTE | 2018-08-08 15:01 | CP.PCM.PN ---
Subjective - Date & Time of Evaluation Date of Evaluation: 08/08/18 Time of Evaluation: 10:10 - Subjective Subjective: Comfortable in bed, no fevers. Objective - Vital Signs/Intake and Output Vital Signs (last 24 hours): Temp Pulse Resp BP Pulse Ox 98.2 F 79 25 H 102/59 L 100 08/08/18 12:00 08/08/18 10:00 08/08/18 08:40 08/08/18 08:00 08/08/18 08:40 Intake and Output: 08/08/18 08/08/18 06:59 18:59 Intake Total 1470 Output Total 200 Balance 1270 - Medications Medications: Current Medications Acetaminophen (Tylenol 325mg Tab) 650 mg PO Q6H PRN PRN Reason: Fever >100.4 F Last Admin: 08/05/18 14:04 Dose: 650 mg Apixaban (Eliquis) 5 mg PO BID [facility]; Protocol Last Admin: 08/06/18 17:09 Dose: 5 mg Aspirin (Aspirin Chewable) 81 mg PO DAILY [facility] Last Admin: 08/07/18 10:42 Dose: Not Given Atorvastatin Calcium (Lipitor) 40 mg PO DIN [facility] Last Admin: 08/07/18 17:36 Dose: 40 mg Cholecalciferol (Vitamin D) 2,000 intlu PO DAILY [facility] Last Admin: 08/08/18 10:24 Dose: Not Given Diltiazem HCl (Cardizem) 60 mg PO TID [facility] Last Admin: 08/08/18 10:23 Dose: Not Given Metronidazole (Flagyl) 500 mg in 100 mls @ 100 mls/hr IVPB Q8 [facility]; Protocol Last Admin: 08/08/18 06:00 Dose: 100 mls/hr Cefepime HCl (Maxipime 1gm) 1 gm in 100 mls @ 100 mls/hr IVPB Q12 [facility]; Protocol Last Admin: 08/07/18 21:29 Dose: 100 mls/hr Dextrose/Sodium Chloride (Dextrose 5%/0.45% Ns 1000 Ml) 1,000 mls @ 100 mls/hr IV .Q10H [facility] Last Admin: 08/08/18 08:57 Dose: 100 mls/hr Sodium Chloride (Sodium Chloride 0.9%) 1,000 mls @ 75 mls/hr IV .[id number] [facility] Stop: 08/08/18 15:16 Insulin Human Regular (Humulin R Med) 0 units SC ACHS [facility]; Protocol Last Admin: 08/08/18 09:46 Dose: Not Given Lorazepam (Ativan) 0.25 mg PO Q6 PRN; 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 Reason: Anxiety Last Admin: 08/07/18 00:19 Dose: 0.25 mg Mesalamine (Rowasa Enema) 4 gm RC BID [facility] Last Admin: 08/08/18 10:24 Dose: Not Given Mesalamine (Pentasa) 500 mg PO QID [facility] Last Admin: 08/08/18 10:23 Dose: Not Given Metoprolol Tartrate (Lopressor) 5 mg IVP ONCE PRN PRN Reason: Other Ondansetron HCl (Zofran Inj) 4 mg IVP Q4H PRN PRN Reason: Nausea/Vomiting Last Admin: 08/06/18 06:39 Dose: 4 mg Pantoprazole Sodium (Protonix Ec Tab) 40 mg PO 0600 [facility] Last Admin: 08/08/18 06:00 Dose: 40 mg Quetiapine Fumarate (Seroquel) 12.5 mg PO HS PRN; 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 Reason: Agitation Last Admin: 08/06/18 23:08 Dose: 12.5 mg - Labs Labs: 08/08/18 11:50 08/08/18 05:29 PT 28.2 SECONDS (9.4-12.5) H 08/07/18 09:00 INR 2.41 08/07/18 09:00 APTT 36.0 Seconds (25.1-36.5) 08/01/18 05:30 - Constitutional Appears: Chronically Ill - Head Exam Head Exam: NORMAL INSPECTION - Respiratory Exam Respiratory Exam: Decreased Breath Sounds - Cardiovascular Exam Cardiovascular Exam: +S1, +S2 - GI/Abdominal Exam GI & Abdominal Exam: Soft. absent: Tenderness Assessment and Plan - Assessment and Plan (Free Text) Plan: Assessment consider pancolitis from Crohn's disease, R/O Infectious causes acute CVA HTN DM COPD OA Plan continue Cefepime and Flagyl day 5 and follow up stool cultures; blood cx negative so far are negative, as well and stool for C. diff is negative follow up further plans of GI will continue to monitor clinically
[2018-08-08] MEDS ORDERED: Etomidate 20 mg/10ml Inj IV ONE (15:21)
[2018-08-08] MEDS ORDERED: Propofol 10 mg/ml Inj (20 ML) ONE (15:21)
[2018-08-09] MEDS: Dextrose 5%/0.45% NS 1,000 ML IV SCH (00:34)
[2018-08-09] MEDS: metroNIDAZOLE IV 500 mg/100 ml 500 MG/100 ML BAG IVPB SCH ×3 (05:25→21:49)
[2018-08-09] MEDS: Pantoprazole 40 mg EC Tab PO SCH (05:26)
[2018-08-09 05:34] LABS: HEMOGLOBIN 8.7 g/dL (12.0-16.0); MEAN CELL VOLUME 85.6 fl (80.0-105.0); MEAN CORPUSCULAR HEMOGLOBIN 29.8 pg (25.0-35.0); MEAN CORPUSCULAR HGB CONC 34.8 g/dl (31.0-37.0); MEAN PLATELET VOLUME 8.7 fl (7.0-11.0); RBC 2.92 10^6/uL (3.5-6.1); RED CELL DISTRIBUTION WIDTH 18.7 % (11.5-14.5); WHITE BLOOD COUNT 2.1 10^3/uL (4.5-11.0)
[2018-08-09 05:42] LABS: ALB/GLOB RATIO 0.6 (1.1-1.8); ALBUMIN 1.3 g/dL (3.0-4.8); CALCIUM 7.7 mg/dL (8.4-10.5)
[2018-08-09] MEDS ORDERED: Potassium Chloride 40 MEQ in Dextrose 5%/0.45% NS 1,000 ML IV SCH (07:58)
[2018-08-09] MEDS ORDERED: POTASSIUM CHLORIDE IV SCH (07:59)
[2018-08-09] MEDS ORDERED: DEXTROSE IV SCH (07:59)
[2018-08-09] MEDS ORDERED: [UNRECOGNIZED DRUG - OTHER] IV SCH (07:59)
[2018-08-09] MEDS: Cefepime 1gm in NS 100ml 1 GM/100 ML BAG IVPB SCH ×2 (09:20→21:49)
[2018-08-09] MEDS: Cholecalciferol 1,000 INTLU TAB PO SCH (09:21)
[2018-08-09] MEDS: Insulin Reg-MEDIUM-Coverage SC SCH ×4 (09:21→22:10)
[2018-08-09] MEDS: Mesalamine ER Cap 500 MG PO SCH ×4 (09:21→21:50)
--- NOTE | 2018-08-09 10:31 | CP.PCM.PN ---
<Diana Healy - Last Filed: 08/09/18 10:31> Subjective - Date & Time of Evaluation Date of Evaluation: 08/09/18 Time of Evaluation: 08:00 - Subjective Subjective: GI Fellow PGY5 Progress Note Pt seen and evaluated at bedside, pt denies any abdominal pain No rectal bleeding. Per nursing watery brown BM overnight. ROS: A 12pt ROS was negative except as above. Objective - Vital Signs/Intake and Output Vital Signs (last 24 hours): Temp Pulse Resp BP Pulse Ox 98.8 F 82 14 104/45 L 100 08/08/18 15:04 08/09/18 09:21 08/08/18 15:04 08/09/18 09:21 08/08/18 15:16 Intake and Output: 08/09/18 08/09/18 06:59 18:59 Intake Total 1200 Output Total 275 Balance 925 - Medications Medications: Current Medications Acetaminophen (Tylenol 325mg Tab) 650 mg PO Q6H PRN PRN Reason: Fever >100.4 F Last Admin: 08/05/18 14:04 Dose: 650 mg Apixaban (Eliquis) 5 mg PO BID [facility]; Protocol Last Admin: 08/06/18 17:09 Dose: 5 mg Aspirin (Aspirin Chewable) 81 mg PO DAILY [facility] Last Admin: 08/07/18 10:42 Dose: Not Given Atorvastatin Calcium (Lipitor) 40 mg PO DIN [facility] Last Admin: 08/08/18 16:27 Dose: Not Given Cholecalciferol (Vitamin D) 2,000 intlu PO DAILY [facility] Last Admin: 08/09/18 09:21 Dose: 2,000 intlu Diltiazem HCl (Cardizem) 60 mg PO TID [facility] Last Admin: 08/09/18 09:21 Dose: 60 mg Metronidazole (Flagyl) 500 mg in 100 mls @ 100 mls/hr IVPB Q8 [facility]; Protocol Last Admin: 08/09/18 05:25 Dose: 100 mls/hr Cefepime HCl (Maxipime 1gm) 1 gm in 100 mls @ 100 mls/hr IVPB Q12 [facility]; Protocol Last Admin: 08/09/18 09:20 Dose: 100 mls/hr Potassium Chloride 80 meq/ (Dextrose/Sodium Chloride) 1,040 mls @ 100 mls/hr IV .[id number] [facility] Insulin Human Regular (Humulin R Med) 0 units SC ACHS [facility]; Protocol Last Admin: 08/09/18 09:21 Dose: Not Given Lorazepam (Ativan) 0.25 mg PO Q6 PRN; 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 Reason: Anxiety Last Admin: 08/07/18 00:19 Dose: 0.25 mg Mesalamine (Rowasa Enema) 4 gm RC BID [facility] Last Admin: 08/08/18 17:24 Dose: 4 gm Mesalamine (Pentasa) 500 mg PO QID [facility] Last Admin: 08/09/18 09:21 Dose: 500 mg Metoprolol Tartrate (Lopressor) 5 mg IVP ONCE PRN PRN Reason: Other Ondansetron HCl (Zofran Inj) 4 mg IVP Q4H PRN PRN Reason: Nausea/Vomiting Last Admin: 08/06/18 06:39 Dose: 4 mg Pantoprazole Sodium (Protonix Ec Tab) 40 mg PO 0600 [facility] Last Admin: 08/09/18 05:26 Dose: 40 mg Prednisone (Prednisone Tab) 20 mg PO BID [facility] Quetiapine Fumarate (Seroquel) 12.5 mg PO HS PRN; 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 Reason: Agitation Last Admin: 08/06/18 23:08 Dose: 12.5 mg - Labs Labs: 08/09/18 05:05 08/09/18 05:05 PT 28.2 SECONDS (9.4-12.5) H 08/07/18 09:00 INR 2.41 08/07/18 09:00 APTT 36.0 Seconds (25.1-36.5) 08/01/18 05:30 - Constitutional Appears: Non-toxic, No Acute Distress - Head Exam Head Exam: ATRAUMATIC, NORMAL INSPECTION, NORMOCEPHALIC - Eye Exam Eye Exam: EOMI, Normal appearance - ENT Exam ENT Exam: Mucous Membranes Moist - Cardiovascular Exam Cardiovascular Exam: Tachycardia, +S1, +S2 - GI/Abdominal Exam GI & Abdominal Exam: Soft, Normal Bowel Sounds. absent: Distended, Firm, Guarding, Tenderness - Neurological Exam Neurological Exam: Alert, Awake - Psychiatric Exam Psychiatric exam: Agitated - Skin Skin Exam: Dry, Intact, Warm Assessment and Plan - Assessment and Plan (Free Text) Assessment: 77 year old female with PMH of HTN, DM, osteoarthritis, COPD and suspected Crohn's Disease 2014 (not currently on maintenance therapy) presenting with altered mental status. Active treatment of NSTEMI< bilateral ischemic CVAs on ASA with Plavix held 2/2 concern for diarrhea with hematochezia. CT A/P PO contrast showed thickening of small bowel, descending, and recto-sigmoid colon. 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 1. Rectal bleeding 2. Anemia 3. Active Crohn's disease with ulcerations Plan: -Continue supportive care with pain control -No active GI bleeding, H/H stable -Pt with a negative EGD, no active upper GI bleeding, no gastric ulcers -Flex sig to 40cm with Crohn Disease score of 14, ulcerations -Start prednisone 20mg bid today -Continue rowasa enema bid -Continue Pentasa 500mg po bid -IV flagyl 18hrs -Pt on clear liquid diet, advance as tolerated -IBD serologies pending -Will continue to follow pt closely <Harper Santiago V - Last Filed: 08/09/18 23:19> Objective - Vital Signs/Intake and Output Vital Signs (last 24 hours): Temp Pulse Resp BP Pulse Ox 97.9 F 73 25 H 90/40 L 96 08/09/18 22:11 08/09/18 18:00 08/09/18 17:00 08/09/18 17:07 08/09/18 17:00 Intake and Output: 08/09/18 08/10/18 18:59 06:59 Intake Total 1750 Output Total 550 Balance 1200 - Medications Medications: Current Medications Acetaminophen (Tylenol 325mg Tab) 650 mg PO Q6H PRN PRN Reason: Pain, moderate (4-7) Last Admin: 08/09/18 22:11 Dose: 650 mg Albuterol/Ipratropium (Duoneb 3 Mg/0.5 Mg (3 Ml) Ud) 3 ml IH [id number] [facility] Last Admin: 08/09/18 20:10 Dose: 3 ml Apixaban (Eliquis) 5 mg PO BID [facility]; Protocol Last Admin: 08/06/18 17:09 Dose: 5 mg Aspirin (Aspirin Chewable) 81 mg PO DAILY [facility] Last Admin: 08/07/18 10:42 Dose: Not Given Atorvastatin Calcium (Lipitor) 40 mg PO DIN [facility] Last Admin: 08/09/18 17:07 Dose: 40 mg Cholecalciferol (Vitamin D) 2,000 intlu PO DAILY [facility] Last Admin: 08/09/18 09:21 Dose: 2,000 intlu Diltiazem HCl (Cardizem) 60 mg PO TID [facility] Last Admin: 08/09/18 17:07 Dose: Not Given Guaifenesin (Robitussin) 100 mg PO Q4H PRN PRN Reason: Cough Last Admin: 08/09/18 15:41 Dose: 100 mg Metronidazole (Flagyl) 500 mg in 100 mls @ 100 mls/hr IVPB Q8 [facility]; Protocol Last Admin: 08/09/18 21:49 Dose: 100 mls/hr Cefepime HCl (Maxipime 1gm) 1 gm in 100 mls @ 100 mls/hr IVPB Q12 [facility]; Protocol Last Admin: 08/09/18 21:49 Dose: 100 mls/hr Insulin Human Regular (Humulin R Med) 0 units SC ACHS [facility]; Protocol Last Admin: 08/09/18 22:10 Dose: Not Given Lorazepam (Ativan) 0.25 mg PO Q6 PRN; 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 Reason: Anxiety Last Admin: 08/09/18 21:48 Dose: 0.25 mg Mesalamine (Pentasa) 500 mg PO QID [facility] Last Admin: 08/09/18 21:50 Dose: 500 mg Metoprolol Tartrate (Lopressor) 5 mg IVP ONCE PRN PRN Reason: Other Ondansetron HCl (Zofran Inj) 4 mg IVP Q4H PRN PRN Reason: Nausea/Vomiting Last Admin: 08/06/18 06:39 Dose: 4 mg Pantoprazole Sodium (Protonix Ec Tab) 40 mg PO 0600 [facility] Last Admin: 08/09/18 05:26 Dose: 40 mg Prednisone (Prednisone Tab) 20 mg PO BID [facility] Last Admin: 08/09/18 17:07 Dose: 20 mg Quetiapine Fumarate (Seroquel) 12.5 mg PO HS PRN; 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 Reason: Agitation Last Admin: 08/06/18 23:08 Dose: 12.5 mg - Labs Labs: 08/09/18 05:05 08/09/18 05:05 PT 28.2 SECONDS (9.4-12.5) H 08/07/18 09:00 INR 2.41 08/07/18 09:00 APTT 36.0 Seconds (25.1-36.5) 08/01/18 05:30 Attending/Attestation - Attestation I have personally seen and examined this patient.: Yes I have fully participated in the care of the patient.: Yes I have reviewed all pertinent clinical information, including history, physical exam and plan: Yes Notes (Text): This is an addendum to GI progress report dictated by the GI Fellow.The patient was seen and examined earlier. Medical records, lab studies, imagings were reviewed. Last 24 hours events reviewed. Agreed with the above treatment plan as outlined in GI Fellow 's notes with the addition of the following 08/09/18 23:19
--- NOTE | 2018-08-09 11:22 | CP.PCM.PN ---
<Christiano Guardado - Last Filed: 08/09/18 11:18> Subjective - Date & Time of Evaluation Date of Evaluation: 08/09/18 Time of Evaluation: :18 - Subjective Subjective: PGY-[address] Quevedo Patient had 2 watery brown stools overnight. Less agitated today compared to previous days - able to intermittently answer questions. Stated she was doing fine - denied pain or abdominal discomfort. Denied bleeding. Patient Seen by BIRTH CERTIFICATE CLERK today - BIRTH CERTIFICATE CLERK recommends puree diet with thin liquids. Objective - Vital Signs/Intake and Output Vital Signs (last 24 hours): Temp Pulse Resp BP Pulse Ox 98.8 F 87 26 H 92/52 L 97 08/08/18 15:04 08/09/18 10:30 08/09/18 10:30 08/09/18 10:00 08/09/18 10:30 Intake and Output: 08/09/18 08/09/18 06:59 18:59 Intake Total 1200 Output Total 275 Balance 925 - Medications Medications: Current Medications Acetaminophen (Tylenol 325mg Tab) 650 mg PO Q6H PRN PRN Reason: Fever >100.4 F Last Admin: 08/05/18 14:04 Dose: 650 mg Apixaban (Eliquis) 5 mg PO BID [facility]; Protocol Last Admin: 08/06/18 17:09 Dose: 5 mg Aspirin (Aspirin Chewable) 81 mg PO DAILY [facility] Last Admin: 08/07/18 10:42 Dose: Not Given Atorvastatin Calcium (Lipitor) 40 mg PO DIN [facility] Last Admin: 08/08/18 16:27 Dose: Not Given Cholecalciferol (Vitamin D) 2,000 intlu PO DAILY [facility] Last Admin: 08/09/18 09:21 Dose: 2,000 intlu Diltiazem HCl (Cardizem) 60 mg PO TID [facility] Last Admin: 08/09/18 09:21 Dose: 60 mg Metronidazole (Flagyl) 500 mg in 100 mls @ 100 mls/hr IVPB Q8 [facility]; Protocol Last Admin: 08/09/18 05:25 Dose: 100 mls/hr Cefepime HCl (Maxipime 1gm) 1 gm in 100 mls @ 100 mls/hr IVPB Q12 [facility]; Protocol Last Admin: 08/09/18 09:20 Dose: 100 mls/hr Potassium Chloride 80 meq/ (Dextrose/Sodium Chloride) 1,040 mls @ 100 mls/hr IV .[id number] [facility] Insulin Human Regular (Humulin R Med) 0 units SC ACHS [facility]; Protocol Last Admin: 08/09/18 09:21 Dose: Not Given Lorazepam (Ativan) 0.25 mg PO Q6 PRN; 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 Reason: Anxiety Last Admin: 08/07/18 00:19 Dose: 0.25 mg Mesalamine (Rowasa Enema) 4 gm RC BID [facility] Last Admin: 08/08/18 17:24 Dose: 4 gm Mesalamine (Pentasa) 500 mg PO QID [facility] Last Admin: 08/09/18 09:21 Dose: 500 mg Metoprolol Tartrate (Lopressor) 5 mg IVP ONCE PRN PRN Reason: Other Ondansetron HCl (Zofran Inj) 4 mg IVP Q4H PRN PRN Reason: Nausea/Vomiting Last Admin: 08/06/18 06:39 Dose: 4 mg Pantoprazole Sodium (Protonix Ec Tab) 40 mg PO 0600 [facility] Last Admin: 08/09/18 05:26 Dose: 40 mg Prednisone (Prednisone Tab) 20 mg PO BID [facility] Quetiapine Fumarate (Seroquel) 12.5 mg PO HS PRN; 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 Reason: Agitation Last Admin: 08/06/18 23:08 Dose: 12.5 mg - Labs Labs: 08/09/18 05:05 08/09/18 05:05 PT 28.2 SECONDS (9.4-12.5) H 08/07/18 09:00 INR 2.41 08/07/18 09:00 APTT 36.0 Seconds (25.1-36.5) 08/01/18 05:30 - Additional Findings Additional findings: - Constitutional Appears: Calm, No acute distress - Head Exam Head Exam: ATRAUMATIC, NORMAL INSPECTION, NORMOCEPHALIC - Eye Exam Eye Exam: EOMI, Normal appearance, PERRL - Respiratory Exam Respiratory Exam: Clear to Ausculation Bilateral, NORMAL BREATHING PATTERN. absent: Rales, Rhonchi, Wheezes, Respiratory Distress - Cardiovascular Exam Cardiovascular Exam: REGULAR RHYTHM, +S1, +S2. absent: Murmur - GI/Abdominal Exam GI & Abdominal Exam: Soft, Normal Bowel Sounds. absent: Tenderness - Extremities Exam Extremities Exam: absent: Calf Tenderness, Tenderness Additional comments: Patient has bilateral pitting edema, unchanged from prior encounter. - Neurological Exam Neurological Exam: Awake - Psychiatric Exam Psychiatric exam: Calm - Skin Skin Exam: Dry, Intact, Normal Color, Warm Assessment and Plan - Assessment and Plan (Free Text) Plan: Patient is a 77 y/o F with PMH of HTN, DM2, OA, COPD, Crohn's disease who presented to ED with family for AMS, delusions, and hallucinations x3 weeks in duration. Patient was admitted to the floor for Delirium 2/2 new watershed stroke. Patient is a candidate for TCU but also had suicidal intent during hospital course placed on 1:1, however patient has been cleared by psych and 1:1 precautions was discontinued. Patient also had episodes of GI bleed. Recently, patient had a new onset of Afib with RVR. Given high CHADVASC score, patient started on anticoagulation (Eliquis), however, she now has active bleeding. Patient was subsequently transferred to the ICU for management. Plan: Non-Active GI Bleed 2/2 Crohn's Flare - s/p flex sig and endoscopy 08/08 to determine source of bleed * Pt with a negative EGD, no active upper GI bleeding, no gastric ulcers * Flex sig to 40cm with Crohn Disease score of 14, ulcerations - Hgb currently 9.4, decrease from 10.9; patient has had a total of x2 pRBCs during hospital course - continue to monitor H/H q4 - continue to hold anticoagulation - ICU consulted. Recommendations appreciated. Patient was given albumin by ICU team. - Bleeding scan (08/05): no evidence of active GI bleed - c/w cefepime and flagyl - Start prednisone 20mg po bid 08/09 - Continue rowasa enema bid - Continue Pentasa 500mg po bid - IV flagyl 18hrs - Pt on clear liquid diet, advance as tolerated - IBD serologies pending - CT A/P (08/03): segmental circumferential mucal thickening in proximal small bowel and mild distal descending colon and sigmoid colon. May represent acute, infectious, or inflammatory etiology. Severe diffuse anasarca. Delirium 2/2 New Watershed Stroke - Patient continues to be agitated and lethargic during interview; c/w ativan .25 mg q6 prn - Cardio does not recommend PATRICK - PT recommends acute rehab - Brain MRI (07/30): multiple small cortical and subcortical infarcts in both hemispheres (R>L). Infarcts could be due to hypotensive watershed infarct. - Head/Neck CTA (07/30): negative - Echo (07/31): EF 62%. Mod-severe aortic regurgitation. Mild pulmonary HTN. - Neuro recs appreciated - Psychiatry recs appreciated New onset Afib with RVR - currently rate controlled - Hold anticoagulation; Eliquis and ASA is held at this time due to acute stroke and active GI bleed - c/w cardizem PO TID and Lopressor 5mg IVP prn for HR > 115 with holding parameters - Cardio recs appreciated - EKG (08/05): afib with RVR (132 bpm) Fever with septic workup - resolved - Blood cx no growth after 48 hrs (prelim) - urine cx shows no growth - No fevers overnight; no leukocytosis Suicidal intent - resolved - 1:1 precautions discontinued; cleared by psych - patient verbalized intent and wanted to use plastic knife to hurt herself (08/02) - Psych recs appreciated NSTEMI - elevated troponins 2/2 stroke - No cath at this time. Continue with medical management. - trops 0.18 on admission, repeat trops were .14 -- secondary to stroke Hx of HTN - Recent SBP trending in the 90s - BP meds held at this time - Home meds are Lopressor 25mg BID and norvasc 5mg daily Hx of DM II - avoid hypoglycemia - ISS DVT ppx: SCDs. No anticoagulation at this time. GI ppx: PTX PT: recommends acute rehab Palliative: Patient is DNR/DNI Dispo: Subacute Rehab. Case was reviewed and discussed with Attending Physician, Dr. Quevedo. <Milagros Quevedo - Last Filed: 08/09/18 12:59> Objective - Vital Signs/Intake and Output Vital Signs (last 24 hours): Temp Pulse Resp BP Pulse Ox 98.8 F 87 26 H 92/52 L 97 08/08/18 15:04 08/09/18 10:30 08/09/18 10:30 08/09/18 10:00 08/09/18 10:30 Intake and Output: 11/17/18 11/17/18 06:59 18:59 Intake Total 1200 Output Total 275 Balance 925 - Medications Medications: Current Medications Acetaminophen (Tylenol 325mg Tab) 650 mg PO Q6H PRN PRN Reason: Fever >100.4 F Last Admin: 08/05/18 14:04 Dose: 650 mg Apixaban (Eliquis) 5 mg PO BID [facility]; Protocol Last Admin: 08/06/18 17:09 Dose: 5 mg Aspirin (Aspirin Chewable) 81 mg PO DAILY [facility] Last Admin: 08/07/18 10:42 Dose: Not Given Atorvastatin Calcium (Lipitor) 40 mg PO DIN [facility] Last Admin: 08/08/18 16:27 Dose: Not Given Cholecalciferol (Vitamin D) 2,000 intlu PO DAILY [facility] Last Admin: 08/09/18 09:21 Dose: 2,000 intlu Diltiazem HCl (Cardizem) 60 mg PO TID [facility] Last Admin: 08/09/18 09:21 Dose: 60 mg Metronidazole (Flagyl) 500 mg in 100 mls @ 100 mls/hr IVPB Q8 [facility]; Protocol Last Admin: 08/09/18 05:25 Dose: 100 mls/hr Cefepime HCl (Maxipime 1gm) 1 gm in 100 mls @ 100 mls/hr IVPB Q12 [facility]; Protocol Last Admin: 08/09/18 09:20 Dose: 100 mls/hr Potassium Chloride 80 meq/ (Dextrose/Sodium Chloride) 1,040 mls @ 100 mls/hr IV .[id number] [facility] Insulin Human Regular (Humulin R Med) 0 units SC ACHS [facility]; Protocol Last Admin: 08/09/18 09:21 Dose: Not Given Lorazepam (Ativan) 0.25 mg PO Q6 PRN; 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 Reason: Anxiety Last Admin: 08/07/18 00:19 Dose: 0.25 mg Mesalamine (Rowasa Enema) 4 gm RC BID [facility] Last Admin: 08/08/18 17:24 Dose: 4 gm Mesalamine (Pentasa) 500 mg PO QID [facility] Last Admin: 08/09/18 09:21 Dose: 500 mg Metoprolol Tartrate (Lopressor) 5 mg IVP ONCE PRN PRN Reason: Other Ondansetron HCl (Zofran Inj) 4 mg IVP Q4H PRN PRN Reason: Nausea/Vomiting Last Admin: 08/06/18 06:39 Dose: 4 mg Pantoprazole Sodium (Protonix Ec Tab) 40 mg PO 0600 [facility] Last Admin: 08/09/18 05:26 Dose: 40 mg Prednisone (Prednisone Tab) 20 mg PO BID [facility] Quetiapine Fumarate (Seroquel) 12.5 mg PO HS PRN; 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 Reason: Agitation Last Admin: 08/06/18 23:08 Dose: 12.5 mg - Labs Labs: 08/09/18 05:05 08/09/18 05:05 PT 28.2 SECONDS (9.4-12.5) H 08/07/18 09:00 INR 2.41 08/07/18 09:00 APTT 36.0 Seconds (25.1-36.5) 08/01/18 05:30 Attending/Attestation - Attestation I have personally seen and examined this patient.: Yes I have fully participated in the care of the patient.: Yes I have reviewed all pertinent clinical information, including history, physical exam and plan: Yes Notes (Text): 08/09/18 12:57 77 year old female with past medical history of diabetes, hypertension and COPD who presented with delusions and hallucinations. MRI brain showed multiple small cortical / subcortical infarcts in both hemispheres, right greater than left. Patient also had possible NSTEMI with elevated cardiac enzymes. Patient was started on aspirin and plavix later discontinued as patient had blood in stool. CT abd/pelvis showed segmental circumferential mucal thickening in proximal small bowel and mild distal descending colon and sigmoid colon. She was seen by GI and started on rowasa/pentasa and aspirin was resumed as hemoglobin was stable with no further bleeding episodes. She developed Afib on the monitor and was started on cardizem and apixiban after discussing with cardiology/GI/neurology. Risks and benefits were explained regarding anticoagulation. She had another bleeding episode so anticoagulation was discontinued and patient was transferred to ICU. Bleeding scan was negative. EGD was also essentially negative. Flex sigmoid oscopy yesterday was suggestive of Crohn's Disease. Continue with rowasa and pentasa. Patient is also started on prednisone as per GI recommendations. Mental status waxes and wanes. Psychiatry is following. Continue with iv antibiotics as per ID. Monitor leukopenia closely. Will replete and repeat lytes. Overall prognosis is guarded. Patient is DNR/DNI. Milagros Quevedo MD Hospitalist.
[2018-08-09] MEDS ORDERED: Potassium & Sodium Phosphate PO ONE (11:29)
--- NOTE | 2018-08-09 13:25 | CP.PCM.PN ---
Subjective - Date & Time of Evaluation Date of Evaluation: 08/09/18 Time of Evaluation: 10:50 - Subjective Subjective: Had colonoscopy yesterday, no fevers. Objective - Vital Signs/Intake and Output Vital Signs (last 24 hours): Temp Pulse Resp BP Pulse Ox 98.2 F 79 25 H 102/59 L 100 08/08/18 12:00 08/08/18 10:00 08/08/18 08:40 08/08/18 08:00 08/08/18 08:40 Intake and Output: 08/08/18 08/08/18 06:59 18:59 Intake Total 1470 Output Total 200 Balance 1270 - Medications Medications: Current Medications Acetaminophen (Tylenol 325mg Tab) 650 mg PO Q6H PRN PRN Reason: Fever >100.4 F Last Admin: 08/05/18 14:04 Dose: 650 mg Apixaban (Eliquis) 5 mg PO BID [facility]; Protocol Last Admin: 08/06/18 17:09 Dose: 5 mg Aspirin (Aspirin Chewable) 81 mg PO DAILY [facility] Last Admin: 08/07/18 10:42 Dose: Not Given Atorvastatin Calcium (Lipitor) 40 mg PO DIN [facility] Last Admin: 08/07/18 17:36 Dose: 40 mg Cholecalciferol (Vitamin D) 2,000 intlu PO DAILY [facility] Last Admin: 08/08/18 10:24 Dose: Not Given Diltiazem HCl (Cardizem) 60 mg PO TID [facility] Last Admin: 08/08/18 10:23 Dose: Not Given Metronidazole (Flagyl) 500 mg in 100 mls @ 100 mls/hr IVPB Q8 [facility]; Protocol Last Admin: 08/08/18 06:00 Dose: 100 mls/hr Cefepime HCl (Maxipime 1gm) 1 gm in 100 mls @ 100 mls/hr IVPB Q12 [facility]; Protocol Last Admin: 08/07/18 21:29 Dose: 100 mls/hr Dextrose/Sodium Chloride (Dextrose 5%/0.45% Ns 1000 Ml) 1,000 mls @ 100 mls/hr IV .Q10H [facility] Last Admin: 08/08/18 08:57 Dose: 100 mls/hr Sodium Chloride (Sodium Chloride 0.9%) 1,000 mls @ 75 mls/hr IV .[id number] [facility] Stop: 08/08/18 15:16 Insulin Human Regular (Humulin R Med) 0 units SC ACHS [facility]; Protocol Last Admin: 08/08/18 09:46 Dose: Not Given Lorazepam (Ativan) 0.25 mg PO Q6 PRN; 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 Reason: Anxiety Last Admin: 08/07/18 00:19 Dose: 0.25 mg Mesalamine (Rowasa Enema) 4 gm RC BID [facility] Last Admin: 08/08/18 10:24 Dose: Not Given Mesalamine (Pentasa) 500 mg PO QID [facility] Last Admin: 08/08/18 10:23 Dose: Not Given Metoprolol Tartrate (Lopressor) 5 mg IVP ONCE PRN PRN Reason: Other Ondansetron HCl (Zofran Inj) 4 mg IVP Q4H PRN PRN Reason: Nausea/Vomiting Last Admin: 08/06/18 06:39 Dose: 4 mg Pantoprazole Sodium (Protonix Ec Tab) 40 mg PO 0600 [facility] Last Admin: 08/08/18 06:00 Dose: 40 mg Quetiapine Fumarate (Seroquel) 12.5 mg PO HS PRN; 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 Reason: Agitation Last Admin: 08/06/18 23:08 Dose: 12.5 mg - Labs Labs: 08/08/18 11:50 08/08/18 05:29 PT 28.2 SECONDS (9.4-12.5) H 08/07/18 09:00 INR 2.41 08/07/18 09:00 APTT 36.0 Seconds (25.1-36.5) 08/01/18 05:30 - Constitutional Appears: Chronically Ill - Head Exam Head Exam: NORMAL INSPECTION - Respiratory Exam Respiratory Exam: Decreased Breath Sounds - Cardiovascular Exam Cardiovascular Exam: +S1, +S2 - GI/Abdominal Exam GI & Abdominal Exam: Soft. absent: Tenderness Assessment and Plan - Assessment and Plan (Free Text) Plan: Assessment consider pancolitis from Crohn's disease, infectious work up so far negative acute CVA HTN DM COPD OA Plan continue Cefepime and Flagyl day 6 - stool cx are negative; reviewed colonoscopy results follow up further plans of GI will continue to monitor clinically
[2018-08-09] MEDS ORDERED: Potassium Chloride 40 mEq/30 ml LIQ UD PO ONE (13:31)
--- NOTE | 2018-08-09 13:36 | CP.CCUPN ---
<Ze Haddad - Last Filed: 08/09/18 14:13> CCU Subjective - Physician Review Subjective (Free Text): 08/09/18 13:33 Patient seen and examined at bedside in no acute distress. Patient is at her baseline yelling profanities. ROS no obtained due to lack of cooperation. CCU Objective - Vital Signs / Intake & Output Vital Signs (Last 4 hours): Vital Signs Pulse Resp BP Pulse Ox 08/09/18 10:30 87 26 H 97 08/09/18 10:20 91 H 97 08/09/18 10:10 85 97 08/09/18 10:00 90 23 92/52 L 93 L 08/09/18 09:50 80 24 94 L 08/09/18 09:40 83 25 H 97 Intake and Output (Last 8hrs): Intake & Output 08/08/18 08/09/18 08/09/18 22:59 06:59 14:59 Intake Total 1200 1200 Output Total 220 275 Balance 980 925 Weight 82.735 kg Intake: IV 1200 1200 Left Upper arm 1200 1200 Oral 0 Output: Urine 220 275 Urethral (Lugo) 220 275 Other: # Bowel Movements 2 2 - Physical Exam Head: Positive for: Atraumatic, Normocephalic Mouth: Positive for: Dry Neck: Positive for: Normal Range of Motion Respiratory/Chest: Positive for: Clear to Auscultation Cardiovascular: Positive for: Normal S1, S2, Irregular Rhythm Abdomen: Positive for: Normal Bowel Sounds, Other (reducible umbilical hernia ). Negative for: Tenderness, Distention Lower Extremity: Positive for: Normal Inspection. Negative for: Edema Neurological: Positive for: Other (GCS 10) Skin: Positive for: Warm, Dry, Normal Color Psychiatric: Positive for: Alert - Medications Active Medications: Active Medications Generic Name Dose Route Start Last Admin Trade Name Freq PRN Reason Stop Dose Admin Acetaminophen 650 mg 08/04/18 13:44 08/05/18 14:04 Tylenol 325mg Tab PO 650 mg Q6H PRN Administration Fever >100.4 F Apixaban 5 mg 08/06/18 18:00 08/06/18 17:09 Eliquis PO 5 mg BID [facility] Administration Protocol Aspirin 81 mg 08/06/18 10:00 08/07/18 10:42 Aspirin Chewable PO Not Given DAILY [facility] Atorvastatin Calcium 40 mg 07/30/18 17:00 08/08/18 16:27 Lipitor PO Not Given DIN ANGELES Cholecalciferol 2,000 intlu 07/29/18 10:00 08/09/18 09:21 Vitamin D PO 2,000 intlu DAILY ANGELES Administration Diltiazem HCl 60 mg 08/05/18 14:00 08/09/18 09:21 Cardizem PO 60 mg TID ANGELES Administration Furosemide 40 mg 08/09/18 13:32 Lasix IVP 08/09/18 13:33 ONCE ONE Metronidazole 500 mg in 100 mls @ 100 mls/hr 08/04/18 14:30 08/09/18 05:25 Flagyl IVPB 100 mls/hr Q8 [facility] Administration Protocol Cefepime HCl 1 gm in 100 mls @ 100 mls/hr 08/06/18 10:00 08/09/18 09:20 Maxipime 1gm IVPB 100 mls/hr Q12 ANGELES Administration Protocol Insulin Human Regular 0 units 07/28/18 22:00 08/09/18 11:16 Humulin R Med SC Not Given ACHS [facility] Protocol Lorazepam 0.25 mg 08/03/18 10:23 08/07/18 00:19 Ativan PO 0.25 mg Q6 PRN Administration Anxiety Protocol Mesalamine 4 gm 08/05/18 10:00 08/09/18 13:17 Rowasa Enema RC Not Given BID [facility] Mesalamine 500 mg 08/05/18 10:00 08/09/18 09:21 Pentasa PO 500 mg QID [facility] Administration Metoprolol Tartrate 5 mg 08/07/18 11:28 Lopressor IVP ONCE PRN Other Ondansetron HCl 4 mg 08/04/18 12:59 08/06/18 06:39 Zofran Inj IVP 4 mg Q4H PRN Administration Nausea/Vomiting Pantoprazole Sodium 40 mg 07/29/18 06:00 08/09/18 05:26 Protonix Ec Tab PO 40 mg 0600 [facility] Administration Potassium Chloride 40 meq 08/09/18 13:31 Potassium Chloride Oral Soln PO 08/09/18 13:32 ONCE ONE Prednisone 20 mg 08/09/18 18:00 Prednisone Tab PO BID [facility] Quetiapine Fumarate 12.5 mg 08/04/18 12:46 11/14/18 23:08 Seroquel PO 12.5 mg HS PRN Administration Agitation Protocol - Patient Studies Lab Studies: Microbiology Studies 08/07/18 15:35 MRSA Culture (Admit) - Final Naris MRSA NOT DETECTED 08/05/18 16:45 Blood Culture - Preliminary Blood NO GROWTH AFTER 3 DAYS Lab Studies 08/09/18 08/09/18 08/09/18 Range/Units 12:02 07:57 05:05 WBC 2.1 L D (4.5-11.0) 10^3/uL RBC 2.92 L (3.5-6.1) 10^6/uL Hgb 8.7 L (12.0-16.0) g/dL Hct 25.0 L (36.0-48.0) % MCV 85.6 (80.0-105.0) fl MCH 29.8 (25.0-35.0) pg MCHC 34.8 (31.0-37.0) g/dl RDW 18.7 H (11.5-14.5) % Plt Count 75 L (120.0-450.0) 10^3/uL MPV 8.7 (7.0-11.0) fl Sodium (132-148) mmol/L Potassium (3.6-5.0) mmol/L Chloride (98-107) mmol/L Carbon Dioxide (21-33) mmol/L Anion Gap (10-20) BUN (7-21) mg/dL Creatinine (0.7-1.2) mg/dl Est GFR ( Amer) Est GFR (Non-Af Amer) POC Glucose (mg/dL) 77 74 (65-110) mg/dL Random Glucose (70-110) mg/dL Calcium (8.4-10.5) mg/dL Phosphorus (2.5-4.5) mg/dL Magnesium (1.7-2.2) mg/dL Total Bilirubin (0.2-1.3) mg/dL AST (14-36) U/L ALT (7-56) U/L Alkaline Phosphatase (38-126) U/L Total Protein (5.8-8.3) g/dL Albumin (3.0-4.8) g/dL Globulin gm/dL Albumin/Globulin Ratio (1.1-1.8) 1108/08/18 08/08/18 Range/Units 05:05 21:39 16:10 WBC (4.5-11.0) 10^3/uL RBC (3.5-6.1) 10^6/uL Hgb (12.0-16.0) g/dL Hct (36.0-48.0) % MCV (80.0-105.0) fl MCH (25.0-35.0) pg MCHC (31.0-37.0) g/dl RDW (11.5-14.5) % Plt Count (120.0-450.0) 10^3/uL MPV (7.0-11.0) fl Sodium 132 (132-148) mmol/L Potassium 3.3 L (3.6-5.0) mmol/L Chloride 109 H (98-107) mmol/L Carbon Dioxide 20 L (21-33) mmol/L Anion Gap 6 L (10-20) BUN 23 H (7-21) mg/dL Creatinine 1.2 (0.7-1.2) mg/dl Est GFR ( Amer) 53 Est GFR (Non-Af Amer) 43 POC Glucose (mg/dL) 74 71 (65-110) mg/dL Random Glucose 83 (70-110) mg/dL Calcium 7.7 L (8.4-10.5) mg/dL Phosphorus 2.4 L (2.5-4.5) mg/dL Magnesium 1.9 (1.7-2.2) mg/dL Total Bilirubin 0.5 (0.2-1.3) mg/dL AST 91 H (14-36) U/L ALT 73 H (7-56) U/L Alkaline Phosphatase 200 H D (38-126) U/L Total Protein 3.4 L (5.8-8.3) g/dL Albumin 1.3 L (3.0-4.8) g/dL Globulin 2.1 gm/dL Albumin/Globulin Ratio 0.6 L (1.1-1.8) 08/08/18 Range/Units 11:01 WBC (4.5-11.0) 10^3/uL RBC (3.5-6.1) 10^6/uL Hgb (12.0-16.0) g/dL Hct (36.0-48.0) % MCV (80.0-105.0) fl MCH (25.0-35.0) pg MCHC (31.0-37.0) g/dl RDW (11.5-14.5) % Plt Count (120.0-450.0) 10^3/uL MPV (7.0-11.0) fl Sodium (132-148) mmol/L Potassium (3.6-5.0) mmol/L Chloride (98-107) mmol/L Carbon Dioxide (21-33) mmol/L Anion Gap (10-20) BUN (7-21) mg/dL Creatinine (0.7-1.2) mg/dl Est GFR ( Amer) Est GFR (Non-Af Amer) POC Glucose (mg/dL) 83 (65-110) mg/dL Random Glucose (70-110) mg/dL Calcium (8.4-10.5) mg/dL Phosphorus (2.5-4.5) mg/dL Magnesium (1.7-2.2) mg/dL Total Bilirubin (0.2-1.3) mg/dL AST (14-36) U/L ALT (7-56) U/L Alkaline Phosphatase (38-126) U/L Total Protein (5.8-8.3) g/dL Albumin (3.0-4.8) g/dL Globulin gm/dL Albumin/Globulin Ratio (1.1-1.8) Laboratory Results - last 24 hr 08/08/18 08/08/18 08/08/18 11:01 16:10 21:39 WBC RBC Hgb Hct MCV MCH MCHC RDW Plt Count MPV Sodium Potassium Chloride Carbon Dioxide Anion Gap BUN Creatinine Est GFR ( Amer) Est GFR (Non-Af Amer) POC Glucose (mg/dL) 83 71 74 Random Glucose Calcium Phosphorus Magnesium Total Bilirubin AST ALT Alkaline Phosphatase Total Protein Albumin Globulin Albumin/Globulin Ratio 08/09/18 08/09/18 08/09/18 05:05 05:05 07:57 WBC 2.1 L D RBC 2.92 L Hgb 8.7 L Hct 25.0 L MCV 85.6 MCH 29.8 MCHC 34.8 RDW 18.7 H Plt Count 75 L MPV 8.7 Sodium 132 Potassium 3.3 L Chloride 109 H Carbon Dioxide 20 L Anion Gap 6 L BUN 23 H Creatinine 1.2 Est GFR ( Amer) 53 Est GFR (Non-Af Amer) 43 POC Glucose (mg/dL) 74 Random Glucose 83 Calcium 7.7 L Phosphorus 2.4 L Magnesium 1.9 Total Bilirubin 0.5 AST 91 H ALT 73 H Alkaline Phosphatase 200 H D Total Protein 3.4 L Albumin 1.3 L Globulin 2.1 Albumin/Globulin Ratio 0.6 L 08/09/18 12:02 WBC RBC Hgb Hct MCV MCH MCHC RDW Plt Count MPV Sodium Potassium Chloride Carbon Dioxide Anion Gap BUN Creatinine Est GFR ( Amer) Est GFR (Non-Af Amer) POC Glucose (mg/dL) 77 Random Glucose Calcium Phosphorus Magnesium Total Bilirubin AST ALT Alkaline Phosphatase Total Protein Albumin Globulin Albumin/Globulin Ratio Fingerstick Blood Sugar Results: 88 Review of Systems - Review of Systems Systems not reviewed;Unavailable: Uncooperative Critical Care Progress Note - Nutrition Nutrition: Nutrition Category Date Time Status Liquid Diet [DIET] Diets 08/08/18 Dinner Ordered Assessment/Plan - Assessment and Plan (Free Text) Assessment: 77 year old female with a PMH of HTN, DM, JOSE, Chron's disease, dementia and now with admission diagnosis of NSTEMI, stroke and new onset atrial fibrillation who presented with multiple episodes of hematochezia for which anticoagulation and antiplatelet therapy are currently placed on hold. Plan: Neuro/Psych -Alert and awake -Baseline mentation -Continue with seroquel qHS Cardiovascular -NSTEMI;anticoagulation on hold due to episodes of bleeding. Continue with l opressir, lipitor -Atrial fibrillation; continue with cardizem -MAP>65 -Keep normotensive Pulmonary -keep o2 sat >90% Gastrointestinal -GI on consult -Endoscopy reveals active chron's with ulcerations -Continue with rowasa, pentasa, prednisone and flagyl -LFTs stable, conitnue to monitor Infectious disease -Continue cefepime and flagyl day # 6 -C. Diff neg, stool cx neg Heme -DVT ppx with SCDs, no heparin due to GI bleed <LilyBilal - Last Filed: 08/10/18 17:34> CCU Objective - Vital Signs / Intake & Output Vital Signs (Last 4 hours): Vital Signs Pulse BP 08/10/18 14:28 86 94/54 L Intake and Output (Last 8hrs): Intake & Output 08/10/18 08/10/18 08/10/18 06:59 14:59 22:59 Intake Total 520 Output Total 500 Balance 20 Weight 78.245 kg Intake: IV 300 Right Upper arm 300 Oral 220 Output: Urine 500 Urethral (Lugo) 500 Other: # Bowel Movements 3 - Medications Active Medications: Active Medications Generic Name Dose Route Start Last Admin Trade Name Freq PRN Reason Stop Dose Admin Acetaminophen 650 mg 08/09/18 21:57 08/09/18 22:11 Tylenol 325mg Tab PO 650 mg Q6H PRN Administration Pain, moderate (4-7) Albuterol/Ipratropium 3 ml 08/09/18 15:15 08/10/18 13:52 Duoneb 3 Mg/0.5 Mg (3 Ml) Ud IH 3 ml [id number] ANGELES Administration Apixaban 5 mg 08/06/18 18:00 08/06/18 17:09 Eliquis PO 5 mg BID [facility] Administration Protocol Aspirin 81 mg 08/06/18 10:00 08/07/18 10:42 Aspirin Chewable PO Not Given DAILY [facility] Atorvastatin Calcium 40 mg 07/30/18 17:00 08/09/18 17:07 Lipitor PO 40 mg DIN ANGELES Administration Cholecalciferol 2,000 intlu 07/29/18 10:00 08/10/18 09:49 Vitamin D PO 2,000 intlu DAILY AN[facility] Administration Diltiazem HCl 60 mg 08/05/18 14:00 08/10/18 14:28 Cardizem PO Not Given TID ANGELES Guaifenesin 100 mg 08/09/18 15:30 08/09/18 15:41 Robitussin PO 100 mg Q4H PRN Administration Cough Metronidazole 500 mg in 100 mls @ 100 mls/hr 08/04/18 14:30 08/10/18 14:27 Flagyl IVPB 100 mls/hr Q8 [facility] Administration Protocol Cefepime HCl 1 gm in 100 mls @ 100 mls/hr 08/06/18 10:00 08/10/18 09:47 Maxipime 1gm IVPB 100 mls/hr Q12 ANGELES Administration Protocol Insulin Human Regular 0 units 07/28/18 22:00 08/10/18 13:18 Humulin R Med SC Not Given ACHS [facility] Protocol Lorazepam 0.25 mg 08/03/18 10:23 08/09/18 21:48 Ativan PO 0.25 mg Q6 PRN Administration Anxiety Protocol Mesalamine 500 mg 08/05/18 10:00 08/10/18 14:27 Pentasa PO 500 mg QID ANGELES Administration Metoprolol Tartrate 5 mg 08/07/18 11:28 Lopressor IVP ONCE PRN Other Ondansetron HCl 4 mg 08/04/18 12:59 08/06/18 06:39 Zofran Inj IVP 4 mg Q4H PRN Administration Nausea/Vomiting Pantoprazole Sodium 40 mg 07/29/18 06:00 08/10/18 06:05 Protonix Ec Tab PO Not Given 0600 [facility] Prednisone 20 mg 08/09/18 18:00 08/10/18 09:47 Prednisone Tab PO 20 mg BID [facility] Administration Quetiapine Fumarate 12.5 mg 08/04/18 12:46 08/10/18 00:10 Seroquel PO 12.5 mg HS PRN Administration Agitation Protocol - Patient Studies Lab Studies: Microbiology Studies 08/05/18 16:45 Blood Culture - Final Blood NO GROWTH AFTER 5 DAYS Gram Stain - Final TEST NOT PERFORMED Lab Studies 08/10/18 08/10/18 08/10/18 Range/Units 12:21 07:40 05:45 WBC 3.0 L D (4.5-11.0) 10^3/uL RBC 2.96 L (3.5-6.1) 10^6/uL Hgb 8.8 L (12.0-16.0) g/dL Hct 25.6 L (36.0-48.0) % MCV 86.5 (80.0-105.0) fl MCH 29.7 (25.0-35.0) pg MCHC 34.4 (31.0-37.0) g/dl RDW 19.4 H (11.5-14.5) % Plt Count 70 L (120.0-450.0) 10^3/uL MPV 9.2 (7.0-11.0) fl Sodium (132-148) mmol/L Potassium (3.6-5.0) mmol/L Chloride (98-107) mmol/L Carbon Dioxide (21-33) mmol/L Anion Gap (10-20) BUN (7-21) mg/dL Creatinine (0.7-1.2) mg/dl Est GFR ( Amer) Est GFR (Non-Af Amer) POC Glucose (mg/dL) 211 H 128 H (65-110) mg/dL Random Glucose (70-110) mg/dL Calcium (8.4-10.5) mg/dL Phosphorus (2.5-4.5) mg/dL Magnesium (1.7-2.2) mg/dL Total Bilirubin (0.2-1.3) mg/dL AST (14-36) U/L ALT (7-56) U/L Alkaline Phosphatase (38-126) U/L Total Protein (5.8-8.3) g/dL Albumin (3.0-4.8) g/dL Globulin gm/dL Albumin/Globulin Ratio (1.1-1.8) 08/10/18 08/09/18 Range/Units 05:45 21:28 WBC (4.5-11.0) 10^3/uL RBC (3.5-6.1) 10^6/uL Hgb (12.0-16.0) g/dL Hct (36.0-48.0) % MCV (80.0-105.0) fl MCH (25.0-35.0) pg MCHC (31.0-37.0) g/dl RDW (11.5-14.5) % Plt Count (120.0-450.0) 10^3/uL MPV (7.0-11.0) fl Sodium 132 (132-148) mmol/L Potassium 4.9 (3.6-5.0) mmol/L Chloride 110 H (98-107) mmol/L Carbon Dioxide 19 L (21-33) mmol/L Anion Gap 8 L (10-20) BUN 24 H (7-21) mg/dL Creatinine 1.2 (0.7-1.2) mg/dl Est GFR ( Amer) 53 Est GFR (Non-Af Amer) 43 POC Glucose (mg/dL) 108 (65-110) mg/dL Random Glucose 136 H (70-110) mg/dL Calcium 7.8 L (8.4-10.5) mg/dL Phosphorus 2.5 (2.5-4.5) mg/dL Magnesium 1.9 (1.7-2.2) mg/dL Total Bilirubin 0.7 (0.2-1.3) mg/dL AST 75 H (14-36) U/L ALT 80 H (7-56) U/L Alkaline Phosphatase 313 H D (38-126) U/L Total Protein 3.6 L (5.8-8.3) g/dL Albumin 1.3 L (3.0-4.8) g/dL Globulin 2.2 gm/dL Albumin/Globulin Ratio 0.6 L (1.1-1.8) Laboratory Results - last 24 hr 08/09/18 08/10/18 08/10/18 21:28 05:45 05:45 WBC 3.0 L D RBC 2.96 L Hgb 8.8 L Hct 25.6 L MCV 86.5 MCH 29.7 MCHC 34.4 RDW 19.4 H Plt Count 70 L MPV 9.2 Sodium 132 Potassium 4.9 Chloride 110 H Carbon Dioxide 19 L Anion Gap 8 L BUN 24 H Creatinine 1.2 Est GFR ( Amer) 53 Est GFR (Non-Af Amer) 43 POC Glucose (mg/dL) 108 Random Glucose 136 H Calcium 7.8 L Phosphorus 2.5 Magnesium 1.9 Total Bilirubin 0.7 AST 75 H ALT 80 H Alkaline Phosphatase 313 H D Total Protein 3.6 L Albumin 1.3 L Globulin 2.2 Albumin/Globulin Ratio 0.6 L 08/10/18 08/10/18 07:40 12:21 WBC RBC Hgb Hct MCV MCH MCHC RDW Plt Count MPV Sodium Potassium Chloride Carbon Dioxide Anion Gap BUN Creatinine Est GFR ( Amer) Est GFR (Non-Af Amer) POC Glucose (mg/dL) 128 H 211 H Random Glucose Calcium Phosphorus Magnesium Total Bilirubin AST ALT Alkaline Phosphatase Total Protein Albumin Globulin Albumin/Globulin Ratio Critical Care Progress Note - Nutrition Nutrition: Nutrition Category Date Time Status Liquid Diet [DIET] Diets 08/08/18 Dinner Ordered Addendum Addendum: 08/09/18 17:34 ICU Attending Addendum Patient seen and examined on 08/09 . Case reviewed on round with housestaff. Agree with resident note above with the following additions/exceptions: 77 year old female with a PMH of HTN, DM, JOSE, Chron's disease, dementia and now new stroke and new onset atrial fibrillation who now presents with multiple episodes of hematochezia. She was started on eliquis and later devloped rectal bleeding. HB stable now GI performend EGD and sig on 08/08 findings consistent with crohns hemodynamically stable LFTs plateua, cont to monitor no more transfusions for now holding antiplat for now holding nsaids neuro on consult for stroke management Rest of care as above Ruel Bautista MD Pulmonary Critical Care and Sleep Medicine
[2018-08-09] MEDS ORDERED: Potassium Chloride 20 mEq ER Tab PO STA (13:37)
[2018-08-09] MEDS: Albuterol-Ipratrop 3 mg / 0.5 (3 ml) UD IH SCH ×2 (15:11→20:10)
[2018-08-09] MEDS ORDERED: guaiFENesin 100 mg/5 ml Syrup UD PO PRN (15:30)
--- NOTE | 2018-08-09 16:11 | RAD ---
HISTORY: fluid status COMPARISON: Chest x-ray performed 08/05/18 TECHNIQUE: Chest, one view. FINDINGS: LUNGS: Right hilar prominence. Linear atelectasis, left mid lung zone. Mild right basilar atelectasis. Mild pulmonary venous congestion. Tiny bilateral pleural effusions. No definite pneumothorax. No focal consolidation. Please note that chest x-ray has limited sensitivity for the detection of pulmonary masses. CARDIOVASCULAR: Heart size appears within normal limits. Aortic ectasia. Atherosclerotic calcifications of the aorta. OSSEOUS STRUCTURES: Osseous demineralization. Degenerative changes of the spine. Acromioclavicular arthropathy. VISUALIZED UPPER ABDOMEN: Unremarkable. OTHER FINDINGS: None. IMPRESSION: Right hilar prominence. Linear atelectasis, left mid lung zone. Mild right basilar atelectasis. Mild pulmonary venous congestion. Tiny bilateral pleural effusions.
[2018-08-10] MEDS: Albuterol-Ipratrop 3 mg / 0.5 (3 ml) UD IH SCH ×4 (02:10→19:55)
[2018-08-10] MEDS: metroNIDAZOLE IV 500 mg/100 ml 500 MG/100 ML BAG IVPB SCH ×3 (05:57→21:33)
[2018-08-10] MEDS: Pantoprazole 40 mg EC Tab PO SCH ×2 (05:58→06:05)
[2018-08-10 06:06] LABS: HEMOGLOBIN 8.8 g/dL (12.0-16.0); MEAN CELL VOLUME 86.5 fl (80.0-105.0); MEAN CORPUSCULAR HEMOGLOBIN 29.7 pg (25.0-35.0); MEAN CORPUSCULAR HGB CONC 34.4 g/dl (31.0-37.0); MEAN PLATELET VOLUME 9.2 fl (7.0-11.0); RBC 2.96 10^6/uL (3.5-6.1); RED CELL DISTRIBUTION WIDTH 19.4 % (11.5-14.5)
[2018-08-10 06:25] LABS: ALB/GLOB RATIO 0.6 (1.1-1.8); ALBUMIN 1.3 g/dL (3.0-4.8); CALCIUM 7.8 mg/dL (8.4-10.5)
[2018-08-10] MEDS ORDERED: Albumin Human 25% (12.5 gm/50 ml) IV ONE (07:00)
--- NOTE | 2018-08-10 07:15 | CP.PCM.PN ---
<Cristian Archuleta - Last Filed: 08/10/18 18:44> Subjective - Date & Time of Evaluation Date of Evaluation: 08/10/18 Time of Evaluation: 07:15 - Subjective Subjective: PGY-1 Medicine Progress Note for Dr. Tijerina's service Patient seen and examined at bedside this AM. No acute overnight events or new episodes of rectal bleeding reported. Patient was agitated this morning during interview, wanted to be left alone. 12 pt ROS otherwise negative at this time. Objective - Vital Signs/Intake and Output Vital Signs (last 24 hours): Temp Pulse Resp BP Pulse Ox 97.7 F 78 25 H 90/40 L 96 08/10/18 04:00 08/10/18 04:15 08/09/18 17:00 08/09/18 17:07 08/09/18 17:00 Intake and Output: 08/10/18 08/10/18 06:59 18:59 Intake Total 520 Output Total 500 Balance 20 - Medications Medications: Current Medications Acetaminophen (Tylenol 325mg Tab) 650 mg PO Q6H PRN PRN Reason: Pain, moderate (4-7) Last Admin: 08/09/18 22:11 Dose: 650 mg Albuterol/Ipratropium (Duoneb 3 Mg/0.5 Mg (3 Ml) Ud) 3 ml IH [id number] [facility] Last Admin: 08/10/18 02:10 Dose: Not Given Apixaban (Eliquis) 5 mg PO BID [facility]; Protocol Last Admin: 08/06/18 17:09 Dose: 5 mg Aspirin (Aspirin Chewable) 81 mg PO DAILY [facility] Last Admin: 08/07/18 10:42 Dose: Not Given Atorvastatin Calcium (Lipitor) 40 mg PO DIN [facility] Last Admin: 08/09/18 17:07 Dose: 40 mg Cholecalciferol (Vitamin D) 2,000 intlu PO DAILY [facility] Last Admin: 08/09/18 09:21 Dose: 2,000 intlu Diltiazem HCl (Cardizem) 60 mg PO TID [facility] Last Admin: 08/09/18 17:07 Dose: Not Given Guaifenesin (Robitussin) 100 mg PO Q4H PRN PRN Reason: Cough Last Admin: 08/09/18 15:41 Dose: 100 mg Metronidazole (Flagyl) 500 mg in 100 mls @ 100 mls/hr IVPB Q8 [facility]; Protocol Last Admin: 08/10/18 05:57 Dose: 100 mls/hr Cefepime HCl (Maxipime 1gm) 1 gm in 100 mls @ 100 mls/hr IVPB Q12 [facility]; Protocol Last Admin: 08/09/18 21:49 Dose: 100 mls/hr Insulin Human Regular (Humulin R Med) 0 units SC ACHS [facility]; Protocol Last Admin: 08/09/18 22:10 Dose: Not Given Lorazepam (Ativan) 0.25 mg PO Q6 PRN; 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 Reason: Anxiety Last Admin: 08/09/18 21:48 Dose: 0.25 mg Mesalamine (Pentasa) 500 mg PO QID [facility] Last Admin: 08/09/18 21:50 Dose: 500 mg Metoprolol Tartrate (Lopressor) 5 mg IVP ONCE PRN PRN Reason: Other Ondansetron HCl (Zofran Inj) 4 mg IVP Q4H PRN PRN Reason: Nausea/Vomiting Last Admin: 08/06/18 06:39 Dose: 4 mg Pantoprazole Sodium (Protonix Ec Tab) 40 mg PO 0600 [facility] Last Admin: 08/10/18 06:05 Dose: Not Given Prednisone (Prednisone Tab) 20 mg PO BID [facility] Last Admin: 08/09/18 17:07 Dose: 20 mg Quetiapine Fumarate (Seroquel) 12.5 mg PO HS PRN; 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 Reason: Agitation Last Admin: 08/10/18 00:10 Dose: 12.5 mg - Labs Labs: 08/10/18 05:45 08/10/18 05:45 PT 28.2 SECONDS (9.4-12.5) H 08/07/18 09:00 INR 2.41 08/07/18 09:00 APTT 36.0 Seconds (25.1-36.5) 08/01/18 05:30 - Constitutional Appears: Non-toxic, No Acute Distress - Head Exam Head Exam: ATRAUMATIC, NORMAL INSPECTION, NORMOCEPHALIC - Eye Exam Eye Exam: EOMI, Normal appearance - ENT Exam ENT Exam: Mucous Membranes Moist, Normal Exam - Neck Exam Neck Exam: Full ROM, Normal Inspection - Respiratory Exam Respiratory Exam: Clear to Ausculation Bilateral, NORMAL BREATHING PATTERN. absent: Accessory Muscle Use, Rales, Rhonchi, Wheezes, Respiratory Distress, Stridor - Cardiovascular Exam Cardiovascular Exam: Tachycardia, +S1, +S2 - GI/Abdominal Exam GI & Abdominal Exam: Soft, Normal Bowel Sounds. absent: Distended, Firm, Guarding, Rigid, Tenderness, Organomegaly, Rebound - Extremities Exam Extremities Exam: Normal Capillary Refill, Normal Inspection. absent: Calf Tenderness, Joint Swelling - Neurological Exam Neurological Exam: Alert, Awake - Psychiatric Exam Psychiatric exam: Agitated - Skin Skin Exam: Dry, Intact, Normal Color, Warm Assessment and Plan - Assessment and Plan (Free Text) Assessment: 77 yo F with PMHx of HTN, DM, osteoarthritis, COPD and suspected Crohn's Disease 2014 (not currently on maintenance therapy) presenting with AMS. Active treatment of NSTEMI< bilateral ischemic CVAs on ASA with Plavix held 2/2 concern for diarrhea with hematochezia. CT A/P PO contrast showed thickening of small bowel, descending, and recto-sigmoid colon. 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 Patient is a candidate for TCU but also had suicidal intent during hospital course placed on 1:1. Patient has been cleared by psych and 1:1 precautions was discontinued. Recently, patient had a new onset of Afib with RVR. Given high CHADVASC score, patient started on anticoagulation (Eliquis), however, patient had active rectal bleeding, since resolved. Plan: Non-Active GI Bleed 2/2 Crohn's Flare -pt s/p 2 units pRBCs tranfusion -Hb/Hct: 8.8/25.6, continue to monitor -continue to hold anticoagulation - CT A/P (08/03): segmental circumferential mucal thickening in proximal small bowel and mild distal descending colon and sigmoid colon. May represent acute, infectious, or inflammatory etiology. Severe diffuse anasarca. - Bleeding scan (08/05): no evidence of active GI bleed - ICU consulted. Recommendations appreciated. Patient was given albumin by ICU team. -s/p flex sig and endoscopy 08/08 to determine source of bleed * Pt with a negative EGD, no active upper GI bleeding, no gastric ulcers * Flex sig to 40cm with Crohn Disease score of 14, ulcerations -GI recs appreciated -hemoglobin stable at this time, no active bleeding noted, continue to monitor -c/w rowasa/pentasa/flagyl -f/u IBD series Delirium 2/2 New Watershed Stroke - Patient continues to be agitated and lethargic during interview; c/w ativan .25 mg q6 prn - Cardio does not recommend [facility] - PT recommends acute rehab - Brain MRI (07/30): multiple small cortical and subcortical infarcts in both hemispheres (R>L). Infarcts could be due to hypotensive watershed infarct. - Head/Neck CTA (07/30): negative - Echo (07/31): EF 62%. Mod-severe aortic regurgitation. Mild pulmonary HTN. - Neuro recs appreciated - Psychiatry recs appreciated New onset Afib with RVR - currently rate controlled - Hold anticoagulation; Eliquis and ASA is held at this time due to acute stroke and active GI bleed - c/w cardizem PO TID and Lopressor 5mg IVP prn for HR > 115 with holding parameters - Cardio recs appreciated - EKG (08/05): afib with RVR (132 bpm) Fever with septic workup - resolved - BCx, Ucx negative - patient afebrile, no leukcytosis Suicidal intent - resolved - patient verbalized intent and wanted to use plastic knife to hurt herself (08/02) - Psych recs appreciated - 1:1 precautions discontinued; cleared by psych NSTEMI - elevated troponins 2/2 stroke - No cath at this time. Continue with medical management. - trops 0.18 on admission, repeat trops were .14 -- secondary to stroke Hx of HTN - Recent SBP trending in the 90s - BP meds held at this time - Home meds are Lopressor 25mg BID and norvasc 5mg daily Hx of DM II - avoid hypoglycemia - ISS PPx, Diet, Disposition -DVT: SCDs, no anticoagulation at this time -GI: protonix -PT on board: acute rehab recs -Dispo: patient is DNR/DNI, palliative on board. Patient is still pending an accepting facility. EARC was done and approved for 10 days. Good until 08/[address] Breezy Arcuhleta DO, PGY-1 <Tijerina,Jayla R - Last Filed: 08/11/18 14:54> Objective - Vital Signs/Intake and Output Vital Signs (last 24 hours): Temp Pulse Resp BP Pulse Ox 97.2 F L 82 21 110/56 L 96 08/11/18 12:00 08/11/18 14:13 08/11/18 14:10 08/11/18 14:13 08/11/18 14:10 Intake and Output: 08/11/18 08/11/18 06:59 18:59 Intake Total 1040 Output Total 400 Balance 640 - Medications Medications: Current Medications Acetaminophen (Tylenol 325mg Tab) 650 mg PO Q6H PRN PRN Reason: Pain, moderate (4-7) Last Admin: 08/10/18 21:32 Dose: 650 mg Albuterol/Ipratropium (Duoneb 3 Mg/0.5 Mg (3 Ml) Ud) 3 ml IH [id number] [facility] Last Admin: 08/11/18 14:47 Dose: 3 ml Apixaban (Eliquis) 2.5 mg PO BID [facility]; Protocol Aspirin (Aspirin Chewable) 81 mg PO DAILY [facility] Last Admin: 08/07/18 10:42 Dose: Not Given Atorvastatin Calcium (Lipitor) 40 mg PO DIN [facility] Last Admin: 08/10/18 17:43 Dose: 40 mg Cholecalciferol (Vitamin D) 2,000 intlu PO DAILY [facility] Last Admin: 08/11/18 09:26 Dose: 2,000 intlu Diltiazem HCl (Cardizem) 60 mg PO TID [facility] Last Admin: 08/11/18 14:13 Dose: 60 mg Guaifenesin (Robitussin) 100 mg PO Q4H PRN PRN Reason: Cough Last Admin: 08/09/18 15:41 Dose: 100 mg Metronidazole (Flagyl) 500 mg in 100 mls @ 100 mls/hr IVPB Q8 [facility]; Protocol Last Admin: 08/11/18 14:13 Dose: 100 mls/hr Cefepime HCl (Maxipime 1gm) 1 gm in 100 mls @ 100 mls/hr IVPB Q12 [facility]; Protocol Last Admin: 08/11/18 09:27 Dose: 100 mls/hr Insulin Human Regular (Humulin R Med) 0 units SC ACHS [facility]; Protocol Last Admin: 08/11/18 11:58 Dose: 3 unit Lorazepam (Ativan) 0.25 mg PO Q6 PRN; 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 Reason: Anxiety Last Admin: 08/09/18 21:48 Dose: 0.25 mg Mesalamine (Pentasa) 500 mg PO QID [facility] Last Admin: 08/11/18 14:13 Dose: 500 mg Midodrine (Proamatine) 5 mg PO TID [facility] Last Admin: 08/11/18 14:13 Dose: 5 mg Ondansetron HCl (Zofran Inj) 4 mg IVP Q4H PRN PRN Reason: Nausea/Vomiting Last Admin: 08/06/18 06:39 Dose: 4 mg Pantoprazole Sodium (Protonix Ec Tab) 40 mg PO 0600 [facility] Last Admin: 08/11/18 06:38 Dose: 40 mg Prednisone (Prednisone Tab) 20 mg PO BID [facility] Last Admin: 08/11/18 09:26 Dose: 20 mg Quetiapine Fumarate (Seroquel) 12.5 mg PO HS PRN; 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 Reason: Agitation Last Admin: 08/10/18 21:31 Dose: 12.5 mg - Labs Labs: 08/11/18 05:30 08/11/18 05:30 PT 28.2 SECONDS (9.4-12.5) H 08/07/18 09:00 INR 2.41 08/07/18 09:00 APTT 36.0 Seconds (25.1-36.5) 08/01/18 05:30 Attending/Attestation - Attestation I have personally seen and examined this patient.: Yes I have fully participated in the care of the patient.: Yes I have reviewed all pertinent clinical information, including history, physical exam and plan: Yes Notes (Text): Patient seen and examined by me with resident at 8:15AM on 08/10/18. Case including HPI, physical exam, and assessment and plan discussed with resident. Agree with above with following additions/corrections. Patient is a 77-year-old female past medical history significant for hypertension, type 2 diabetes, osteoarthritis, and COPD that presented to the emergency room with altered mental status and hallucinations/delusions. Patient is awake and alert. Patient confused and not answering questions. Unable to obtain any review of systems from patient. Patient afebrile. Had watery brown bowel movement. Physical exam: General: Awake and alert lying in bed in no acute distress HEENT: Normocephalic atraumatic. Extraocular muscles intact. Pupils equal reactive. No scleral icterus. Neck supple. Patient not opening oropharynx, unable to examine. Cardiovascular: Normal rhythm. Normal S1, S2. No murmurs, rubs, or gallops appreciated Pulmonary: Normal respiratory effort. Auscultated anteriorly. She is not following commands and not taking in deep breaths when asked to. No rhonchi, rales or wheezing appreciated. Gastrointestinal: Soft, nondistended. Mild generalized tenderness when palpated. Positive bowel sounds all 4 quadrants. No guarding. Musculoskeletal: Moves all extremities, positive weeping edema bilateral upper extremities. Positive lower extremity edema Central nervous system: Weak and alert. Not following commands. Confused. Dermatologic: Skin warm and dry. Assessment and plan: Patient is a 77-year-old female past medical history significant for hypertension, type 2 diabetes, osteoarthritis, and COPD that presented to the emergency room with altered mental status and hallucinations/delusions. 1. GI bleed secondary to Crohn's flare. H&H stable. GI bleeding scan per radiologist showed no evidence of active GI bleeding on 08/06/2018. CT abdomen and pelvis on 08/03/2018 per radiologist showed segmental circumferential mural thickening in the proximal small bowel and apparent segmental circumferential mural thickening in the mid and distal descending colon and sigmoid colon, moderate pleural effusions, small abdominal pelvic ascites, and severe diffuse anasarca. Patient had EGD done on 08/08/2018 which showed normal esophagus, normal stomach, normal duodenal bulb and second portion of the duodenum. 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 Continue with Pentasa and prednisone per GI. Patient also on Flagyl and cefepime for pancolitis per ID. 2. CVA. Neurology recommendation appreciated. Brain MRI 07/30/2018 per radiology showed multiple all cortical and subcortical infarcts in both hemispheres right greater than left. Head and neck CTA on 07/30/2018 per radiologist showed no evidence of stenosis or occlusion, unremarkable CT angiography of the brain. Head CT on 08/06/2018 per radiology showed no acute findings. Aspirin and Eliquis on hold secondary to GI bleeding. Continue Lipitor. Continue physical therapy. Continue occupational therapy. Speech and swallow following. 3. NSTEMI. Cardiology following, recommendations appreciated. Aspirin and Eliquis on hold for now secondary to GI bleeding. Continue Lipitor. Continue Cardizem. 4. Paroxysmal atrial fibrillation. Eliquis on hold secondary to GI bleeding. Cardiology following, recommendations appreciated. Continue Cardizem. 5. Delirium and agitation secondary to CVA. Suicidal attempt. Patient seen by psychiatry, conditions appreciated. Continue Ativan when necessary every 6 hours as needed for anxiety. Continue Seroquel at bedtime as needed for agitation. Continue supportive care. 6. Pancytopenia. Stable. Continue to monitor CBC. Patient s/p 2 units PRBCS 08/07/18. 7. COPD. Continue nebulizer treatments. Continue Robitussin as needed. 8. Type 2 diabetes. Continue insulin sliding scale. Continue to monitor Accu- Cheks. 9. Essential hypertension. Continue Cardizem. 10. GI prophylaxis. Protonix. 11. DVT prophylaxis. SCDs. 12. Patient is a DNR/DNI.
--- NOTE | 2018-08-10 07:51 | CP.CCUPN ---
<Ye Ramirez - Last Filed: 08/10/18 13:20> CCU Subjective - Physician Review Subjective (Free Text): CRITICAL CARE PROGRESS NOTE FOR. DR. BAUTISTA Pt seen and examined at bedside today. She had a liquid brown bowel movement yesterday. She awakens upon verbal/tactile stimulation, is axo to her name, however doesn't answer to location and time. ROS is limited to pts mental status, however she grimaces to LLQ abdominal palpation. CCU Objective - Vital Signs / Intake & Output Vital Signs (Last 4 hours): Vital Signs Temp Pulse 08/10/18 04:15 78 08/10/18 04:00 97.7 F Intake and Output (Last 8hrs): Intake & Output 08/09/18 08/10/18 08/10/18 22:59 06:59 14:59 Intake Total 1750 520 Output Total 550 500 Balance 1200 20 Weight 78.245 kg Intake: IV 900 300 Left Upper arm 900 Right Upper arm 300 Oral 850 220 Output: Urine 550 500 Urethral (Lugo) 550 500 Other: # Bowel Movements 1 3 - Physical Exam Head: Positive for: Atraumatic, Normocephalic Extroacular Muscles: Positive for: EOMI Mouth: Positive for: Dry Neck: Positive for: Normal Range of Motion Respiratory/Chest: Positive for: Clear to Auscultation Cardiovascular: Positive for: Normal S1, S2, Irregular Rhythm Abdomen: Positive for: Normal Bowel Sounds, Other (reducible umbilical hernia ). Negative for: Tenderness, Distention Lower Extremity: Positive for: Normal Inspection. Negative for: Edema Neurological: Positive for: Other (GCS 10) Skin: Positive for: Warm, Dry, Normal Color Psychiatric: Positive for: Alert - Medications Active Medications: Active Medications Generic Name Dose Route Start Last Admin Trade Name Freq PRN Reason Stop Dose Admin Acetaminophen 650 mg 08/09/18 21:57 08/09/18 22:11 Tylenol 325mg Tab PO 650 mg Q6H PRN Administration Pain, moderate (4-7) Albuterol/Ipratropium 3 ml 08/09/18 15:15 08/10/18 02:10 Duoneb 3 Mg/0.5 Mg (3 Ml) Ud IH Not Given [id number] ANGELES Apixaban 5 mg 08/06/18 18:00 08/06/18 17:09 Eliquis PO 5 mg BID [facility] Administration Protocol Aspirin 81 mg 08/06/18 10:00 08/07/18 10:42 Aspirin Chewable PO Not Given DAILY [facility] Atorvastatin Calcium 40 mg 07/30/18 17:00 08/09/18 17:07 Lipitor PO 40 mg DIN [facility] Administration Cholecalciferol 2,000 intlu 07/29/18 10:00 08/09/18 09:21 Vitamin D PO 2,000 intlu DAILY [facility] Administration Diltiazem HCl 60 mg 08/05/18 14:00 08/09/18 17:07 Cardizem PO Not Given TID [facility] Guaifenesin 100 mg 08/09/18 15:30 08/09/18 15:41 Robitussin PO 100 mg Q4H PRN Administration Cough Metronidazole 500 mg in 100 mls @ 100 mls/hr 08/04/18 14:30 08/10/18 05:57 Flagyl IVPB 100 mls/hr Q8 [facility] Administration Protocol Cefepime HCl 1 gm in 100 mls @ 100 mls/hr 08/06/18 10:00 08/09/18 21:49 Maxipime 1gm IVPB 100 mls/hr Q12 [facility] Administration Protocol Insulin Human Regular 0 units 07/28/18 22:00 08/09/18 22:10 Humulin R Med SC Not Given ACHS [facility] Protocol Lorazepam 0.25 mg 08/03/18 10:23 08/09/18 21:48 Ativan PO 0.25 mg Q6 PRN Administration Anxiety Protocol Mesalamine 500 mg 08/05/18 10:00 08/09/18 21:50 Pentasa PO 500 mg QID [facility] Administration Metoprolol Tartrate 5 mg 08/07/18 11:28 Lopressor IVP ONCE PRN Other Ondansetron HCl 4 mg 08/04/18 12:59 08/06/18 06:39 Zofran Inj IVP 4 mg Q4H PRN Administration Nausea/Vomiting Pantoprazole Sodium 40 mg 07/29/18 06:00 08/10/18 06:05 Protonix Ec Tab PO Not Given 0600 [facility] Prednisone 20 mg 08/09/18 18:00 08/09/18 17:07 Prednisone Tab PO 20 mg BID [facility] Administration Quetiapine Fumarate 12.5 mg 08/04/18 12:46 08/10/18 00:10 Seroquel PO 12.5 mg HS PRN Administration Agitation Protocol - Patient Studies Lab Studies: Microbiology Studies 08/05/18 16:45 Blood Culture - Preliminary Blood NO GROWTH AFTER 4 DAYS 08/07/18 15:35 MRSA Culture (Admit) - Final Naris MRSA NOT DETECTED Lab Studies 08/10/18 08/10/18 08/10/18 Range/Units 07:40 05:45 05:45 WBC 3.0 L D (4.5-11.0) 10^3/uL RBC 2.96 L (3.5-6.1) 10^6/uL Hgb 8.8 L (12.0-16.0) g/dL Hct 25.6 L (36.0-48.0) % MCV 86.5 (80.0-105.0) fl MCH 29.7 (25.0-35.0) pg MCHC 34.4 (31.0-37.0) g/dl RDW 19.4 H (11.5-14.5) % Plt Count 70 L (120.0-450.0) 10^3/uL MPV 9.2 (7.0-11.0) fl Sodium 132 (132-148) mmol/L Potassium 4.9 (3.6-5.0) mmol/L Chloride 110 H (98-107) mmol/L Carbon Dioxide 19 L (21-33) mmol/L Anion Gap 8 L (10-20) BUN 24 H (7-21) mg/dL Creatinine 1.2 (0.7-1.2) mg/dl Est GFR ( Amer) 53 Est GFR (Non-Af Amer) 43 POC Glucose (mg/dL) 128 H (65-110) mg/dL Random Glucose 136 H (70-110) mg/dL Calcium 7.8 L (8.4-10.5) mg/dL Phosphorus 2.5 (2.5-4.5) mg/dL Magnesium 1.9 (1.7-2.2) mg/dL Total Bilirubin 0.7 (0.2-1.3) mg/dL AST 75 H (14-36) U/L ALT 80 H (7-56) U/L Alkaline Phosphatase 313 H D (38-126) U/L Total Protein 3.6 L (5.8-8.3) g/dL Albumin 1.3 L (3.0-4.8) g/dL Globulin 2.2 gm/dL Albumin/Globulin Ratio 0.6 L (1.1-1.8) 08/09/18 08/09/18 08/09/18 Range/Units 21:28 16:31 12:02 WBC (4.5-11.0) 10^3/uL RBC (3.5-6.1) 10^6/uL Hgb (12.0-16.0) g/dL Hct (36.0-48.0) % MCV (80.0-105.0) fl MCH (25.0-35.0) pg MCHC (31.0-37.0) g/dl RDW (11.5-14.5) % Plt Count (120.0-450.0) 10^3/uL MPV (7.0-11.0) fl Sodium (132-148) mmol/L Potassium (3.6-5.0) mmol/L Chloride (98-107) mmol/L Carbon Dioxide (21-33) mmol/L Anion Gap (10-20) BUN (7-21) mg/dL Creatinine (0.7-1.2) mg/dl Est GFR ( Amer) Est GFR (Non-Af Amer) POC Glucose (mg/dL) 108 113 H 77 (65-110) mg/dL Random Glucose (70-110) mg/dL Calcium (8.4-10.5) mg/dL Phosphorus (2.5-4.5) mg/dL Magnesium (1.7-2.2) mg/dL Total Bilirubin (0.2-1.3) mg/dL AST (14-36) U/L ALT (7-56) U/L Alkaline Phosphatase (38-126) U/L Total Protein (5.8-8.3) g/dL Albumin (3.0-4.8) g/dL Globulin gm/dL Albumin/Globulin Ratio (1.1-1.8) 08/09/18 Range/Units 07:57 WBC (4.5-11.0) 10^3/uL RBC (3.5-6.1) 10^6/uL Hgb (12.0-16.0) g/dL Hct (36.0-48.0) % MCV (80.0-105.0) fl MCH (25.0-35.0) pg MCHC (31.0-37.0) g/dl RDW (11.5-14.5) % Plt Count (120.0-450.0) 10^3/uL MPV (7.0-11.0) fl Sodium (132-148) mmol/L Potassium (3.6-5.0) mmol/L Chloride (98-107) mmol/L Carbon Dioxide (21-33) mmol/L Anion Gap (10-20) BUN (7-21) mg/dL Creatinine (0.7-1.2) mg/dl Est GFR ( Amer) Est GFR (Non-Af Amer) POC Glucose (mg/dL) 74 (65-110) mg/dL Random Glucose (70-110) mg/dL Calcium (8.4-10.5) mg/dL Phosphorus (2.5-4.5) mg/dL Magnesium (1.7-2.2) mg/dL Total Bilirubin (0.2-1.3) mg/dL AST (14-36) U/L ALT (7-56) U/L Alkaline Phosphatase (38-126) U/L Total Protein (5.8-8.3) g/dL Albumin (3.0-4.8) g/dL Globulin gm/dL Albumin/Globulin Ratio (1.1-1.8) Laboratory Results - last 24 hr 08/09/18 08/09/18 08/09/18 07:57 12:02 16:31 WBC RBC Hgb Hct MCV MCH MCHC RDW Plt Count MPV Sodium Potassium Chloride Carbon Dioxide Anion Gap BUN Creatinine Est GFR ( Amer) Est GFR (Non-Af Amer) POC Glucose (mg/dL) 74 77 113 H Random Glucose Calcium Phosphorus Magnesium Total Bilirubin AST ALT Alkaline Phosphatase Total Protein Albumin Globulin Albumin/Globulin Ratio 08/09/18 08/10/18 08/10/18 21:28 05:45 05:45 WBC 3.0 L D RBC 2.96 L Hgb 8.8 L Hct 25.6 L MCV 86.5 MCH 29.7 MCHC 34.4 RDW 19.4 H Plt Count 70 L MPV 9.2 Sodium 132 Potassium 4.9 Chloride 110 H Carbon Dioxide 19 L Anion Gap 8 L BUN 24 H Creatinine 1.2 Est GFR ( Amer) 53 Est GFR (Non-Af Amer) 43 POC Glucose (mg/dL) 108 Random Glucose 136 H Calcium 7.8 L Phosphorus 2.5 Magnesium 1.9 Total Bilirubin 0.7 AST 75 H ALT 80 H Alkaline Phosphatase 313 H D Total Protein 3.6 L Albumin 1.3 L Globulin 2.2 Albumin/Globulin Ratio 0.6 L 08/10/18 07:40 WBC RBC Hgb Hct MCV MCH MCHC RDW Plt Count MPV Sodium Potassium Chloride Carbon Dioxide Anion Gap BUN Creatinine Est GFR ( Amer) Est GFR (Non-Af Amer) POC Glucose (mg/dL) 128 H Random Glucose Calcium Phosphorus Magnesium Total Bilirubin AST ALT Alkaline Phosphatase Total Protein Albumin Globulin Albumin/Globulin Ratio Fingerstick Blood Sugar Results: 108 Review of Systems - Review of Systems Review of Systems: per HPI Critical Care Progress Note - Nutrition Nutrition: Nutrition Category Date Time Status Liquid Diet [DIET] Diets 08/08/18 Dinner Ordered Assessment/Plan - Assessment and Plan (Free Text) Assessment: 77 year old female with a PMH of HTN, DM, JOSE, Chron's disease, dementia and now with admission diagnosis of NSTEMI, stroke and new onset atrial fibrillation who presented with multiple episodes of hematochezia for which anticoagulation and antiplatelet therapy are currently placed on hold Plan: Neuro/Psych Alert and awake Baseline mentation neuro on consult for ams Continue with seroquel qHS continue w/ pt/ot Cardiovascular NSTEMI;anticoagulation on hold due to episodes of bleeding. Continue with lopressor, lipitor. Resume based on GI recs Atrial fibrillation; continue with cardizem MAP>65 Maintain normotensive Pulmonary Maintain o2 sat >90% Gastrointestinal GI on consult Endoscopy reveals active Crohns with ulcerations Continue with rowasa, pentasa, prednisone and flagyl per GI recs LFTs stable, continue to monitor Resume eliquis based on GI recs ibd serologies pending Infectious disease ID on consult Continue cefepime and flagyl day # 7 for pancolitis from Crohns C. Diff neg, stool cx neg Heme H/H stable today DVT ppx with SCDs, hold heparin due to GI bleed. Dispo: Monitor in ICU Case seen, examined and discussed with attending checkout operator, Dr. Bautista <Ruel Bautista - Last Filed: 08/10/18 17:36> CCU Objective - Vital Signs / Intake & Output Vital Signs (Last 4 hours): Vital Signs Pulse BP 08/10/18 14:28 86 94/54 L Intake and Output (Last 8hrs): Intake & Output 08/10/18 08/10/18 08/10/18 06:59 14:59 22:59 Intake Total 520 Output Total 500 Balance 20 Weight 78.245 kg Intake: IV 300 Right Upper arm 300 Oral 220 Output: Urine 500 Urethral (Lugo) 500 Other: # Bowel Movements 3 - Medications Active Medications: Active Medications Generic Name Dose Route Start Last Admin Trade Name Freq PRN Reason Stop Dose Admin Acetaminophen 650 mg 08/09/18 21:57 08/09/18 22:11 Tylenol 325mg Tab PO 650 mg Q6H PRN Administration Pain, moderate (4-7) Albuterol/Ipratropium 3 ml 08/09/18 15:15 08/10/18 13:52 Duoneb 3 Mg/0.5 Mg (3 Ml) Ud IH 3 ml [id number] [facility] Administration Apixaban 5 mg 08/06/18 18:00 08/06/18 17:09 Eliquis PO 5 mg BID [facility] Administration Protocol Aspirin 81 mg 08/06/18 10:00 08/07/18 10:42 Aspirin Chewable PO Not Given DAILY [facility] Atorvastatin Calcium 40 mg 07/30/18 17:00 08/09/18 17:07 Lipitor PO 40 mg DIN [facility] Administration Cholecalciferol 2,000 intlu 07/29/18 10:00 08/10/18 09:49 Vitamin D PO 2,000 intlu DAILY [facility] Administration Diltiazem HCl 60 mg 08/05/18 14:00 08/10/18 14:28 Cardizem PO Not Given TID [facility] Guaifenesin 100 mg 08/09/18 15:30 08/09/18 15:41 Robitussin PO 100 mg Q4H PRN Administration Cough Metronidazole 500 mg in 100 mls @ 100 mls/hr 08/04/18 14:30 08/10/18 14:27 Flagyl IVPB 100 mls/hr Q8 [facility] Administration Protocol Cefepime HCl 1 gm in 100 mls @ 100 mls/hr 08/06/18 10:00 08/10/18 09:47 Maxipime 1gm IVPB 100 mls/hr Q12 [facility] Administration Protocol Insulin Human Regular 0 units 07/28/18 22:00 08/10/18 13:18 Humulin R Med SC Not Given ACHS [facility] Protocol Lorazepam 0.25 mg 08/03/18 10:23 08/09/18 21:48 Ativan PO 0.25 mg Q6 PRN Administration Anxiety Protocol Mesalamine 500 mg 08/05/18 10:00 08/10/18 14:27 Pentasa PO 500 mg QID [facility] Administration Metoprolol Tartrate 5 mg 08/07/18 11:28 Lopressor IVP ONCE PRN Other Ondansetron HCl 4 mg 08/04/18 12:59 08/06/18 06:39 Zofran Inj IVP 4 mg Q4H PRN Administration Nausea/Vomiting Pantoprazole Sodium 40 mg 07/29/18 06:00 08/10/18 06:05 Protonix Ec Tab PO Not Given 0600 [facility] Prednisone 20 mg 08/09/18 18:00 08/10/18 09:47 Prednisone Tab PO 20 mg BID [facility] Administration Quetiapine Fumarate 12.5 mg 08/04/18 12:46 08/10/18 00:10 Seroquel PO 12.5 mg HS PRN Administration Agitation Protocol - Patient Studies Lab Studies: Microbiology Studies 08/05/18 16:45 Blood Culture - Final Blood NO GROWTH AFTER 5 DAYS Gram Stain - Final TEST NOT PERFORMED Lab Studies 08/10/18 08/10/18 08/10/18 Range/Units 12:21 07:40 05:45 WBC 3.0 L D (4.5-11.0) 10^3/uL RBC 2.96 L (3.5-6.1) 10^6/uL Hgb 8.8 L (12.0-16.0) g/dL Hct 25.6 L (36.0-48.0) % MCV 86.5 (80.0-105.0) fl MCH 29.7 (25.0-35.0) pg MCHC 34.4 (31.0-37.0) g/dl RDW 19.4 H (11.5-14.5) % Plt Count 70 L (120.0-450.0) 10^3/uL MPV 9.2 (7.0-11.0) fl Sodium (132-148) mmol/L Potassium (3.6-5.0) mmol/L Chloride (98-107) mmol/L Carbon Dioxide (21-33) mmol/L Anion Gap (10-20) BUN (7-21) mg/dL Creatinine (0.7-1.2) mg/dl Est GFR ( Amer) Est GFR (Non-Af Amer) POC Glucose (mg/dL) 211 H 128 H (65-110) mg/dL Random Glucose (70-110) mg/dL Calcium (8.4-10.5) mg/dL Phosphorus (2.5-4.5) mg/dL Magnesium (1.7-2.2) mg/dL Total Bilirubin (0.2-1.3) mg/dL AST (14-36) U/L ALT (7-56) U/L Alkaline Phosphatase (38-126) U/L Total Protein (5.8-8.3) g/dL Albumin (3.0-4.8) g/dL Globulin gm/dL Albumin/Globulin Ratio (1.1-1.8) 08/10/18 08/09/18 Range/Units 05:45 21:28 WBC (4.5-11.0) 10^3/uL RBC (3.5-6.1) 10^6/uL Hgb (12.0-16.0) g/dL Hct (36.0-48.0) % MCV (80.0-105.0) fl MCH (25.0-35.0) pg MCHC (31.0-37.0) g/dl RDW (11.5-14.5) % Plt Count (120.0-450.0) 10^3/uL MPV (7.0-11.0) fl Sodium 132 (132-148) mmol/L Potassium 4.9 (3.6-5.0) mmol/L Chloride 110 H (98-107) mmol/L Carbon Dioxide 19 L (21-33) mmol/L Anion Gap 8 L (10-20) BUN 24 H (7-21) mg/dL Creatinine 1.2 (0.7-1.2) mg/dl Est GFR ( Amer) 53 Est GFR (Non-Af Amer) 43 POC Glucose (mg/dL) 108 (65-110) mg/dL Random Glucose 136 H (70-110) mg/dL Calcium 7.8 L (8.4-10.5) mg/dL Phosphorus 2.5 (2.5-4.5) mg/dL Magnesium 1.9 (1.7-2.2) mg/dL Total Bilirubin 0.7 (0.2-1.3) mg/dL AST 75 H (14-36) U/L ALT 80 H (7-56) U/L Alkaline Phosphatase 313 H D (38-126) U/L Total Protein 3.6 L (5.8-8.3) g/dL Albumin 1.3 L (3.0-4.8) g/dL Globulin 2.2 gm/dL Albumin/Globulin Ratio 0.6 L (1.1-1.8) Laboratory Results - last 24 hr 08/09/18 08/10/18 08/10/18 21:28 05:45 05:45 WBC 3.0 L D RBC 2.96 L Hgb 8.8 L Hct 25.6 L MCV 86.5 MCH 29.7 MCHC 34.4 RDW 19.4 H Plt Count 70 L MPV 9.2 Sodium 132 Potassium 4.9 Chloride 110 H Carbon Dioxide 19 L Anion Gap 8 L BUN 24 H Creatinine 1.2 Est GFR ( Amer) 53 Est GFR (Non-Af Amer) 43 POC Glucose (mg/dL) 108 Random Glucose 136 H Calcium 7.8 L Phosphorus 2.5 Magnesium 1.9 Total Bilirubin 0.7 AST 75 H ALT 80 H Alkaline Phosphatase 313 H D Total Protein 3.6 L Albumin 1.3 L Globulin 2.2 Albumin/Globulin Ratio 0.6 L 08/10/18 08/10/18 07:40 12:21 WBC RBC Hgb Hct MCV MCH MCHC RDW Plt Count MPV Sodium Potassium Chloride Carbon Dioxide Anion Gap BUN Creatinine Est GFR ( Amer) Est GFR (Non-Af Amer) POC Glucose (mg/dL) 128 H 211 H Random Glucose Calcium Phosphorus Magnesium Total Bilirubin AST ALT Alkaline Phosphatase Total Protein Albumin Globulin Albumin/Globulin Ratio Critical Care Progress Note - Nutrition Nutrition: Nutrition Category Date Time Status Liquid Diet [DIET] Diets 08/08/18 Dinner Ordered Addendum Addendum: 08/10/18 17:35 ICU Attending Addendum Patient seen and examined. Case reviewed on round with housestaff. Agree with resident note above with the following additions/exceptions: 77 year old female with a PMH of HTN, DM, JOSE, Chron's disease, dementia and now new stroke and new onset atrial fibrillation who now presents with multiple episodes of hematochezia. She was started on eliquis and later devloped rectal bleeding. HB stable now GI performed EGD and sig on 08/08 findings consistent with crohns hemodynamically stable LFTs improved however ALP rising GI on board cont to monitor no more transfusions for now holding antiplat for now holding nsaids neuro on consult for stroke management Rest of care as above Ruel Bautista MD Pulmonary Critical Care and Sleep Medicine 08/10/18 17:36
[2018-08-10] MEDS: Insulin Reg-MEDIUM-Coverage SC SCH ×4 (09:09→22:26)
[2018-08-10] MEDS: Mesalamine ER Cap 500 MG PO SCH ×4 (09:46→21:31)
[2018-08-10] MEDS: Cefepime 1gm in NS 100ml 1 GM/100 ML BAG IVPB SCH ×2 (09:47→21:33)
[2018-08-10] MEDS: Cholecalciferol 1,000 INTLU TAB PO SCH (09:49)
--- NOTE | 2018-08-10 10:13 | CP.PCM.PN ---
<Diana Healy - Last Filed: 08/10/18 10:11> Subjective - Date & Time of Evaluation Date of Evaluation: 08/10/18 Time of Evaluation: 07:00 - Subjective Subjective: GI Fellow PGY5 Progress Note Pt seen and evaluated at bedside, pt denies any abdominal pain. No rectal bleeding. Per nursing watery brown BM. ROS: A 12pt ROS was negative except as above. Objective - Vital Signs/Intake and Output Vital Signs (last 24 hours): Temp Pulse Resp BP Pulse Ox 97.7 F 80 25 H 101/55 L 96 08/10/18 04:00 08/10/18 09:46 08/09/18 17:00 08/10/18 09:46 08/09/18 17:00 Intake and Output: 08/10/18 08/10/18 06:59 18:59 Intake Total 520 Output Total 500 Balance 20 - Medications Medications: Current Medications Acetaminophen (Tylenol 325mg Tab) 650 mg PO Q6H PRN PRN Reason: Pain, moderate (4-7) Last Admin: 08/09/18 22:11 Dose: 650 mg Albuterol/Ipratropium (Duoneb 3 Mg/0.5 Mg (3 Ml) Ud) 3 ml IH [id number] [facility] Last Admin: 08/10/18 08:13 Dose: 3 ml Apixaban (Eliquis) 5 mg PO BID [facility]; Protocol Last Admin: 08/06/18 17:09 Dose: 5 mg Aspirin (Aspirin Chewable) 81 mg PO DAILY [facility] Last Admin: 08/07/18 10:42 Dose: Not Given Atorvastatin Calcium (Lipitor) 40 mg PO DIN [facility] Last Admin: 08/09/18 17:07 Dose: 40 mg Cholecalciferol (Vitamin D) 2,000 intlu PO DAILY [facility] Last Admin: 08/10/18 09:49 Dose: 2,000 intlu Diltiazem HCl (Cardizem) 60 mg PO TID [facility] Last Admin: 08/10/18 09:46 Dose: 60 mg Guaifenesin (Robitussin) 100 mg PO Q4H PRN PRN Reason: Cough Last Admin: 08/09/18 15:41 Dose: 100 mg Metronidazole (Flagyl) 500 mg in 100 mls @ 100 mls/hr IVPB Q8 [facility]; Protocol Last Admin: 08/10/18 05:57 Dose: 100 mls/hr Cefepime HCl (Maxipime 1gm) 1 gm in 100 mls @ 100 mls/hr IVPB Q12 [facility]; Protocol Last Admin: 08/10/18 09:47 Dose: 100 mls/hr Insulin Human Regular (Humulin R Med) 0 units SC ACHS [facility]; Protocol Last Admin: 08/10/18 09:09 Dose: Not Given Lorazepam (Ativan) 0.25 mg PO Q6 PRN; 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 Reason: Anxiety Last Admin: 08/09/18 21:48 Dose: 0.25 mg Mesalamine (Pentasa) 500 mg PO QID [facility] Last Admin: 08/10/18 09:46 Dose: 500 mg Metoprolol Tartrate (Lopressor) 5 mg IVP ONCE PRN PRN Reason: Other Ondansetron HCl (Zofran Inj) 4 mg IVP Q4H PRN PRN Reason: Nausea/Vomiting Last Admin: 08/06/18 06:39 Dose: 4 mg Pantoprazole Sodium (Protonix Ec Tab) 40 mg PO 0600 [facility] Last Admin: 08/10/18 06:05 Dose: Not Given Prednisone (Prednisone Tab) 20 mg PO BID [facility] Last Admin: 08/10/18 09:47 Dose: 20 mg Quetiapine Fumarate (Seroquel) 12.5 mg PO HS PRN; 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 Reason: Agitation Last Admin: 08/10/18 00:10 Dose: 12.5 mg - Labs Labs: 08/10/18 05:45 08/10/18 05:45 PT 28.2 SECONDS (9.4-12.5) H 08/07/18 09:00 INR 2.41 08/07/18 09:00 APTT 36.0 Seconds (25.1-36.5) 08/01/18 05:30 - Constitutional Appears: Non-toxic, No Acute Distress - Head Exam Head Exam: ATRAUMATIC, NORMAL INSPECTION, NORMOCEPHALIC - Eye Exam Eye Exam: EOMI, Normal appearance - ENT Exam ENT Exam: Mucous Membranes Moist - Respiratory Exam Respiratory Exam: NORMAL BREATHING PATTERN - Cardiovascular Exam Cardiovascular Exam: Tachycardia, Irregular Rhythm - GI/Abdominal Exam GI & Abdominal Exam: Soft. absent: Distended, Firm, Guarding, Tenderness - Neurological Exam Neurological Exam: Alert, Awake - Psychiatric Exam Psychiatric exam: Normal Affect, Normal Mood - Skin Skin Exam: Dry, Intact, Normal Color, Warm Assessment and Plan - Assessment and Plan (Free Text) Assessment: 77 year old female with PMH of HTN, DM, osteoarthritis, COPD and suspected Crohn's Disease 2014 (not currently on maintenance therapy) presenting with altered mental status. Active treatment of NSTEMI< bilateral ischemic CVAs on ASA with Plavix held 2/2 concern for diarrhea with hematochezia. CT A/P PO contrast showed thickening of small bowel, descending, and recto-sigmoid colon. 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 1. Rectal bleeding 2. Anemia 3. Active Crohn's disease with ulcerations Plan: -Continue supportive care with pain control -No active GI bleeding, H/H stable -Pt with a negative EGD, no active upper GI bleeding, no gastric ulcers -Flex sig to 40cm with Crohn Disease score of 14, ulcerations -Continue prednisone 20mg bid today -Continue Rowasa enema bid -Continue Pentasa 500mg po bid -IV Flagyl 18hrs -Advance diet as tolerated -IBD serologies pending -Please call with any questions or concerns <Harper Santiago V - Last Filed: 08/10/18 23:38> Objective - Vital Signs/Intake and Output Vital Signs (last 24 hours): Temp Pulse Resp BP Pulse Ox 97.7 F 75 25 H 103/53 L 96 08/10/18 04:00 08/10/18 19:00 08/09/18 17:00 08/10/18 17:43 08/09/18 17:00 Intake and Output: 08/10/18 08/11/18 18:59 06:59 Intake Total 1390 Output Total 250 Balance 1140 - Medications Medications: Current Medications Acetaminophen (Tylenol 325mg Tab) 650 mg PO Q6H PRN PRN Reason: Pain, moderate (4-7) Last Admin: 08/10/18 21:32 Dose: 650 mg Albuterol/Ipratropium (Duoneb 3 Mg/0.5 Mg (3 Ml) Ud) 3 ml IH [id number] [facility] Last Admin: 08/10/18 19:55 Dose: 3 ml Apixaban (Eliquis) 5 mg PO BID [facility]; Protocol Last Admin: 08/06/18 17:09 Dose: 5 mg Aspirin (Aspirin Chewable) 81 mg PO DAILY [facility] Last Admin: 08/07/18 10:42 Dose: Not Given Atorvastatin Calcium (Lipitor) 40 mg PO DIN [facility] Last Admin: 08/10/18 17:43 Dose: 40 mg Cholecalciferol (Vitamin D) 2,000 intlu PO DAILY [facility] Last Admin: 08/10/18 09:49 Dose: 2,000 intlu Diltiazem HCl (Cardizem) 60 mg PO TID [facility] Last Admin: 08/10/18 17:43 Dose: 60 mg Guaifenesin (Robitussin) 100 mg PO Q4H PRN PRN Reason: Cough Last Admin: 08/09/18 15:41 Dose: 100 mg Metronidazole (Flagyl) 500 mg in 100 mls @ 100 mls/hr IVPB Q8 [facility]; Protocol Last Admin: 08/10/18 21:33 Dose: 100 mls/hr Cefepime HCl (Maxipime 1gm) 1 gm in 100 mls @ 100 mls/hr IVPB Q12 [facility]; Protocol Last Admin: 08/10/18 21:33 Dose: 100 mls/hr Sodium Chloride (Sodium Chloride 0.9%) 500 mls @ 999 mls/hr IV .Q31M STA Stop: 08/10/18 23:44 Last Admin: 08/10/18 23:22 Dose: 999 mls/hr Insulin Human Regular (Humulin R Med) 0 units SC ACHS [facility]; Protocol Last Admin: 08/10/18 22:26 Dose: Not Given Lorazepam (Ativan) 0.25 mg PO Q6 PRN; 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 Reason: Anxiety Last Admin: 08/09/18 21:48 Dose: 0.25 mg Mesalamine (Pentasa) 500 mg PO QID [facility] Last Admin: 08/10/18 21:31 Dose: 500 mg Metoprolol Tartrate (Lopressor) 5 mg IVP ONCE PRN PRN Reason: Other Ondansetron HCl (Zofran Inj) 4 mg IVP Q4H PRN PRN Reason: Nausea/Vomiting Last Admin: 08/06/18 06:39 Dose: 4 mg Pantoprazole Sodium (Protonix Ec Tab) 40 mg PO 0600 [facility] Last Admin: 08/10/18 06:05 Dose: Not Given Prednisone (Prednisone Tab) 20 mg PO BID [facility] Last Admin: 08/10/18 17:43 Dose: 20 mg Quetiapine Fumarate (Seroquel) 12.5 mg PO HS PRN; 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 Reason: Agitation Last Admin: 08/10/18 21:31 Dose: 12.5 mg - Labs Labs: 08/10/18 05:45 08/10/18 05:45 PT 28.2 SECONDS (9.4-12.5) H 08/07/18 09:00 INR 2.41 08/07/18 09:00 APTT 36.0 Seconds (25.1-36.5) 08/01/18 05:30 Attending/Attestation - Attestation I have personally seen and examined this patient.: Yes I have fully participated in the care of the patient.: Yes I have reviewed all pertinent clinical information, including history, physical exam and plan: Yes Notes (Text): This is an addendum to GI progress report dictated by the GI Fellow.The patient was seen and examined earlier. Medical records, lab studies, imagings were reviewed. Last 24 hours events reviewed. Agreed with the above treatment plan as outlined in GI Fellow 's notes with the addition of the following 08/10/18 23:37
[2018-08-10] MEDS ORDERED: Sodium Chloride 0.9% 500 ML IV STA (23:14)
[2018-08-11] MEDS: Albuterol-Ipratrop 3 mg / 0.5 (3 ml) UD IH SCH ×4 (02:40→19:38)
[2018-08-11 06:02] LABS: GRAN # 3.68 (1.4-6.5); GRAN % 88.9 % (50.0-68.0); HEMOGLOBIN 9.3 g/dL (12.0-16.0); LYMPH # 0.3 (1.2-3.4); LYMPH % 8.2 % (22.0-35.0); MEAN CELL VOLUME 87.3 fl (80.0-105.0); MEAN CORPUSCULAR HEMOGLOBIN 28.9 pg (25.0-35.0); MEAN CORPUSCULAR HGB CONC 33.1 g/dl (31.0-37.0); MEAN PLATELET VOLUME 9.2 fl (7.0-11.0); MONO # 0.1 (0.1-0.6); MONO % 2.9 % (1.0-6.0); RBC 3.22 10^6/uL (3.5-6.1); RED CELL DISTRIBUTION WIDTH 20.3 % (11.5-14.5); WHITE BLOOD COUNT 4.1 10^3/uL (4.5-11.0)
[2018-08-11] MEDS: metroNIDAZOLE IV 500 mg/100 ml 500 MG/100 ML BAG IVPB SCH ×3 (06:38→23:28)
[2018-08-11] MEDS: Pantoprazole 40 mg EC Tab PO SCH (06:38)
[2018-08-11 07:19] LABS: ALB/GLOB RATIO 0.6 (1.1-1.8); ALBUMIN 1.5 g/dL (3.0-4.8); CALCIUM 8.6 mg/dL (8.4-10.5)
--- NOTE | 2018-08-11 07:21 | CP.CCUPN ---
<David Sun - Last Filed: 08/11/18 11:12> CCU Subjective - Physician Review Subjective (Free Text): David Sun, PGY1 ICU Progress Note for Dr. Bautista Patient was seen and examined at bedside this morning. She is AAOx2 (person and place). Patient is awake, follows commands, moves all extremities, however she does not provide an adequate ROS due to waxing/waning mental status. Afebrile overnight. BP during time of interview noted to be 87/46. BP was 76/42 last night in which she was given a 500ml NS bolus. Lugo is in place and draining appropriately. 08/11/18 11:18 CCU Objective - Vital Signs / Intake & Output Vital Signs (Last 4 hours): Vital Signs Temp Pulse 08/11/18 04:00 98 F 74 Intake and Output (Last 8hrs): Intake & Output 08/10/18 08/11/18 08/11/18 22:59 06:59 14:59 Intake Total 1390 1040 Output Total 250 400 Balance 1140 640 Weight 78.562 kg Intake: IV 350 800 Right Upper arm 350 800 Oral 1040 240 Output: Urine 250 400 Urethral (Lugo) 250 400 Other: # Bowel Movements 3 1 - Physical Exam Head: Positive for: Atraumatic, Normocephalic Pupils: Positive for: PERRL Extroacular Muscles: Positive for: EOMI Mouth: Positive for: Moist Mucous Membranes Neck: Positive for: Normal Range of Motion Respiratory/Chest: Positive for: Clear to Auscultation. Negative for: Respiratory Distress, Wheezes, Rales, Rhonchi Cardiovascular: Positive for: Regular Rate and Rhythm, Normal S1, S2 Abdomen: Positive for: Tenderness, Normal Bowel Sounds. Negative for: Distention, Peritoneal Signs, Rebound Genitourinary/Pelvic Exam: Positive for: Other (Lugo in place. ) Lower Extremity: Positive for: Normal Inspection. Negative for: Edema, CALF TEN DERNESS Skin: Positive for: Warm, Dry, Normal Color Psychiatric: Positive for: Alert (AAOx2). Negative for: Oriented x 3, Normal Insight, Normal Concentration - Medications Active Medications: Active Medications Generic Name Dose Route Start Last Admin Trade Name Freq PRN Reason Stop Dose Admin Acetaminophen 650 mg 08/09/18 21:57 08/10/18 21:32 Tylenol 325mg Tab PO 650 mg Q6H PRN Administration Pain, moderate (4-7) Albuterol/Ipratropium 3 ml 08/09/18 15:15 08/11/18 02:40 Duoneb 3 Mg/0.5 Mg (3 Ml) Ud IH 3 ml [id number] ANGELES Administration Apixaban 5 mg 08/06/18 18:00 08/06/18 17:09 Eliquis PO 5 mg BID ANGELES Administration Protocol Aspirin 81 mg 08/06/18 10:00 08/07/18 10:42 Aspirin Chewable PO Not Given DAILY ANGELES Atorvastatin Calcium 40 mg 07/30/18 17:00 08/10/18 17:43 Lipitor PO 40 mg DIN ANGELES Administration Cholecalciferol 2,000 intlu 07/29/18 10:00 08/10/18 09:49 Vitamin D PO 2,000 intlu DAILY [facility] Administration Diltiazem HCl 60 mg 08/05/18 14:00 08/10/18 17:43 Cardizem PO 60 mg TID ANGELES Administration Guaifenesin 100 mg 08/09/18 15:30 08/09/18 15:41 Robitussin PO 100 mg Q4H PRN Administration Cough Metronidazole 500 mg in 100 mls @ 100 mls/hr 08/04/18 14:30 08/11/18 06:38 Flagyl IVPB 100 mls/hr Q8 [facility] Administration Protocol Cefepime HCl 1 gm in 100 mls @ 100 mls/hr 08/06/18 10:00 08/10/18 21:33 Maxipime 1gm IVPB 100 mls/hr Q12 ANG[facility] Administration Protocol Insulin Human Regular 0 units 07/28/18 22:00 08/10/18 22:26 Humulin R Med SC Not Given ACHS [facility] Protocol Lorazepam 0.25 mg 08/03/18 10:23 08/09/18 21:48 Ativan PO 0.25 mg Q6 PRN Administration Anxiety Protocol Mesalamine 500 mg 08/05/18 10:00 08/10/18 21:31 Pentasa PO 500 mg QID ANGELES Administration Metoprolol Tartrate 5 mg 08/07/18 11:28 Lopressor IVP ONCE PRN Other Ondansetron HCl 4 mg 08/04/18 12:59 08/06/18 06:39 Zofran Inj IVP 4 mg Q4H PRN Administration Nausea/Vomiting Pantoprazole Sodium 40 mg 07/29/18 06:00 08/11/18 06:38 Protonix Ec Tab PO 40 mg 0600 AN[facility] Administration Prednisone 20 mg 08/09/18 18:00 08/10/18 17:43 Prednisone Tab PO 20 mg BID ANGELES Administration Quetiapine Fumarate 12.5 mg 08/04/18 12:46 08/10/18 21:31 Seroquel PO 12.5 mg HS PRN Administration Agitation Protocol - Patient Studies Lab Studies: Microbiology Studies 08/05/18 16:45 Blood Culture - Final Blood NO GROWTH AFTER 5 DAYS Gram Stain - Final TEST NOT PERFORMED Lab Studies 08/11/18 08/10/18 08/10/18 Range/Units 05:30 21:47 16:41 WBC 4.1 L D (4.5-11.0) 10^3/uL RBC 3.22 L (3.5-6.1) 10^6/uL Hgb 9.3 L (12.0-16.0) g/dL Hct 28.1 L (36.0-48.0) % MCV 87.3 (80.0-105.0) fl MCH 28.9 (25.0-35.0) pg MCHC 33.1 (31.0-37.0) g/dl RDW 20.3 H (11.5-14.5) % Plt Count 80 L (120.0-450.0) 10^3/uL MPV 9.2 (7.0-11.0) fl Gran % 88.9 H (50.0-68.0) % Lymph % (Auto) 8.2 L (22.0-35.0) % [place] % (Auto) 2.9 (1.0-6.0) % Eos % (Auto) 0.0 L (1.5-5.0) % Baso % (Auto) 0.0 (0.0-3.0) % Gran # 3.68 (1.4-6.5) Lymph # (Auto) 0.3 L (1.2-3.4) [place] # (Auto) 0.1 (0.1-0.6) Eos # (Auto) 0.0 (0.0-0.7) Baso # (Auto) 0.00 (0.0-2.0) K/mm3 POC Glucose (mg/dL) 187 H 192 H (65-110) mg/dL 08/10/18 08/10/18 Range/Units 12:21 07:40 WBC (4.5-11.0) 10^3/uL RBC (3.5-6.1) 10^6/uL Hgb (12.0-16.0) g/dL Hct (36.0-48.0) % MCV (80.0-105.0) fl MCH (25.0-35.0) pg MCHC (31.0-37.0) g/dl RDW (11.5-14.5) % Plt Count (120.0-450.0) 10^3/uL MPV (7.0-11.0) fl Gran % (50.0-68.0) % Lymph % (Auto) (22.0-35.0) % [place] % (Auto) (1.0-6.0) % Eos % (Auto) (1.5-5.0) % Baso % (Auto) (0.0-3.0) % Gran # (1.4-6.5) Lymph # (Auto) (1.2-3.4) [place] # (Auto) (0.1-0.6) Eos # (Auto) (0.0-0.7) Baso # (Auto) (0.0-2.0) K/mm3 POC Glucose (mg/dL) 211 H 128 H (65-110) mg/dL Laboratory Results - last 24 hr 08/10/18 08/10/18 08/10/18 07:40 12:21 16:41 WBC RBC Hgb Hct MCV MCH MCHC RDW Plt Count MPV Gran % Lymph % (Auto) [place] % (Auto) Eos % (Auto) Baso % (Auto) Gran # Lymph # (Auto) [place] # (Auto) Eos # (Auto) Baso # (Auto) POC Glucose (mg/dL) 128 H 211 H 192 H 08/10/18 08/11/18 21:47 05:30 WBC 4.1 L D RBC 3.22 L Hgb 9.3 L Hct 28.1 L MCV 87.3 MCH 28.9 MCHC 33.1 RDW 20.3 H Plt Count 80 L MPV 9.2 Gran % 88.9 H Lymph % (Auto) 8.2 L [place] % (Auto) 2.9 Eos % (Auto) 0.0 L Baso % (Auto) 0.0 Gran # 3.68 Lymph # (Auto) 0.3 L [place] # (Auto) 0.1 Eos # (Auto) 0.0 Baso # (Auto) 0.00 POC Glucose (mg/dL) 187 H Fingerstick Blood Sugar Results: 187 Review of Systems - Review of Systems All systems: reviewed and no additional remarkable complaints except (as per HPI.) Critical Care Progress Note - Extremities/Vascular Does the Patient have a Central Venous Catheter?: No Does the Patient need a Central Venous Catheter?: No Does the Patient have a Lugo Catheter?: Yes Does the Patient need a Lugo Catheter?: Yes (AMS) - Prophylaxis GI Prophylaxis GI: PPI - Prophylaxis DVT Prophylaxis DVT: SCDs - Nutrition Nutrition: Nutrition Category Date Time Status Liquid Diet [DIET] Diets 08/08/18 Dinner Ordered Assessment/Plan - Assessment and Plan (Free Text) Assessment: Patient is a 77 y/o F with a PMHx HTN, DMII, JOSE, Crohn's disease, dementia and now with admission diagnosis of new [place] stroke, NSTEMI - elevated troponins 2/2 stroke, and new onset atrial fibrillation (rate controlled) who presented to the ICU with multiple episodes of hematochezia. Plan: Neuro/Psych AAOx2 (baseline is AAOx3) Neuro consulted for AMS c/w seroquel 12.5mg qHS as per psych recommendations continue w/ PT/OT Cardiovascular BP was 76/42 overnight; given 500ml NS bolus; BP 87/46 this morning; started on midodrine 5mg PO TID Curbsided Cardio, may start low dose anticoagulation given new onset afib (rate controlled) with CHADVASC score 7; started Eliquis 2.5 mg PO BID and c/w cardizem c/w Lopressor and Lipitor NSTEMI - troponins elevated 2/2 stroke Maintain normotensive Pulmonary Maintain O2 sat >90% Resting comfortably on room air; no signs of respiratory distress CXR (08/09): right Hilar prominence wih mild pulmonary vascular congestion. No changes from previous CXR Gastrointestinal GI on consult. Recommendations appreciated Flex sigmoidoscopy (08/08) revealed active Crohns with ulcerations; EGD was essentially negative c/w mesalamine, rowasa enemas, prednisone 20mg BID, and flagyl per GI recs LFTs stable and downtrending Bleeding scan (08/05): no evidence of active GI bleed Infectious disease ID on consult. Recs appreciated. c/w cefepime and flagyl day # 8 for pancolitis 2/2 Crohns flare C. Diff neg, stool cx neg Heme H/H stable today No active bleeding as per nursing DVT ppx: SCDs, held heparin due to GI bleed. GI ppx: PTX 40mg PO daily Palliative Care is on board. Patient is DNR/DNI. Dispo: continue to monitor patient in the ICU. Case was discussed and reviewed with Attending Physician, Dr. Bautista <Ruel Bautista - Last Filed: 08/11/18 17:42> CCU Objective - Vital Signs / Intake & Output Vital Signs (Last 4 hours): Vital Signs Pulse Resp BP Pulse Ox 08/11/18 17:18 96 H 97/48 L 08/11/18 14:13 82 110/56 L 08/11/18 14:10 82 21 96 08/11/18 14:00 85 25 H 110/56 L 96 08/11/18 13:50 85 23 97 Intake and Output (Last 8hrs): Intake & Output 08/11/18 08/11/18 08/11/18 06:59 14:59 22:59 Intake Total 1040 Output Total 400 Balance 640 Weight 78.562 kg Intake: IV 800 Right Upper arm 800 Oral 240 Output: Urine 400 Urethral (Lugo) 400 Other: # Bowel Movements 1 - Medications Active Medications: Active Medications Generic Name Dose Route Start Last Admin Trade Name Freq PRN Reason Stop Dose Admin Acetaminophen 650 mg 08/09/18 21:57 08/10/18 21:32 Tylenol 325mg Tab PO 650 mg Q6H PRN Administration Pain, moderate (4-7) Albuterol/Ipratropium 3 ml 08/09/18 15:15 08/11/18 14:47 Duoneb 3 Mg/0.5 Mg (3 Ml) Ud IH 3 ml [id number] ANGELES Administration Apixaban 2.5 mg 08/11/18 18:00 08/11/18 17:17 Eliquis PO 2.5 mg BID [facility] Administration Protocol Aspirin 81 mg 08/06/18 10:00 08/07/18 10:42 Aspirin Chewable PO Not Given DAILY [facility] Atorvastatin Calcium 40 mg 07/30/18 17:00 08/11/18 17:17 Lipitor PO 40 mg DIN ANGELES Administration Cholecalciferol 2,000 intlu 07/29/18 10:00 08/11/18 09:26 Vitamin D PO 2,000 intlu DAILY [facility] Administration Diltiazem HCl 60 mg 08/05/18 14:00 08/11/18 17:18 Cardizem PO Not Given TID [facility] Guaifenesin 100 mg 08/09/18 15:30 08/09/18 15:41 Robitussin PO 100 mg Q4H PRN Administration Cough Metronidazole 500 mg in 100 mls @ 100 mls/hr 08/04/18 14:30 08/11/18 14:13 Flagyl IVPB 100 mls/hr Q8 [facility] Administration Protocol Cefepime HCl 1 gm in 100 mls @ 100 mls/hr 08/06/18 10:00 08/11/18 09:27 Maxipime 1gm IVPB 100 mls/hr Q12 [facility] Administration Protocol Insulin Human Regular 0 units 07/28/18 22:00 08/11/18 17:11 Humulin R Med SC Not Given ACHS [facility] Protocol Lorazepam 0.25 mg 08/03/18 10:23 08/09/18 21:48 Ativan PO 0.25 mg Q6 PRN Administration Anxiety Protocol Mesalamine 500 mg 08/05/18 10:00 08/11/18 17:17 Pentasa PO 500 mg QID [facility] Administration Midodrine 5 mg 08/11/18 14:00 08/11/18 17:17 Proamatine PO 5 mg TID [facility] Administration Ondansetron HCl 4 mg 08/04/18 12:59 08/06/18 06:39 Zofran Inj IVP 4 mg Q4H PRN Administration Nausea/Vomiting Pantoprazole Sodium 40 mg 07/29/18 06:00 08/11/18 06:38 Protonix Ec Tab PO 40 mg 0600 ANGELES Administration Prednisone 20 mg 08/09/18 18:00 08/11/18 17:17 Prednisone Tab PO 20 mg BID AN[facility]EL[facility] Administration Quetiapine Fumarate 12.5 mg 08/04/18 12:46 08/10/18 21:31 Seroquel PO 12.5 mg HS PRN Administration Agitation Protocol - Patient Studies Lab Studies: Microbiology Studies 08/05/18 16:45 Blood Culture - Final Blood NO GROWTH AFTER 5 DAYS Gram Stain - Final TEST NOT PERFORMED Lab Studies 08/11/18 08/11/18 08/11/18 Range/Units 16:01 11:21 05:30 WBC (4.5-11.0) 10^3/uL RBC (3.5-6.1) 10^6/uL Hgb (12.0-16.0) g/dL Hct (36.0-48.0) % MCV (80.0-105.0) fl MCH (25.0-35.0) pg MCHC (31.0-37.0) g/dl RDW (11.5-14.5) % Plt Count (120.0-450.0) 10^3/uL MPV (7.0-11.0) fl Gran % (50.0-68.0) % Lymph % (Auto) (22.0-35.0) % [place] % (Auto) (1.0-6.0) % Eos % (Auto) (1.5-5.0) % Baso % (Auto) (0.0-3.0) % Gran # (1.4-6.5) Lymph # (Auto) (1.2-3.4) [place] # (Auto) (0.1-0.6) Eos # (Auto) (0.0-0.7) Baso # (Auto) (0.0-2.0) K/mm3 Sodium 133 (132-148) mmol/L Potassium 4.7 (3.6-5.0) mmol/L Chloride 109 H (98-107) mmol/L Carbon Dioxide 19 L (21-33) mmol/L Anion Gap 10 (10-20) BUN 25 H (7-21) mg/dL Creatinine 1.2 (0.7-1.2) mg/dl Est GFR ( Amer) 53 Est GFR (Non-Af Amer) 43 POC Glucose (mg/dL) 131 H 208 H (65-110) mg/dL Random Glucose 131 H (70-110) mg/dL Calcium 8.6 (8.4-10.5) mg/dL Total Bilirubin 0.6 (0.2-1.3) mg/dL AST 44 H D (14-36) U/L ALT 70 H (7-56) U/L Alkaline Phosphatase 339 H (38-126) U/L Total Protein 4.0 L (5.8-8.3) g/dL Albumin 1.5 L (3.0-4.8) g/dL Globulin 2.5 gm/dL Albumin/Globulin Ratio 0.6 L (1.1-1.8) 08/11/18 08/10/18 08/10/18 Range/Units 05:30 21:47 16:41 WBC 4.1 L D (4.5-11.0) 10^3/uL RBC 3.22 L (3.5-6.1) 10^6/uL Hgb 9.3 L (12.0-16.0) g/dL Hct 28.1 L (36.0-48.0) % MCV 87.3 (80.0-105.0) fl MCH 28.9 (25.0-35.0) pg MCHC 33.1 (31.0-37.0) g/dl RDW 20.3 H (11.5-14.5) % Plt Count 80 L (120.0-450.0) 10^3/uL MPV 9.2 (7.0-11.0) fl Gran % 88.9 H (50.0-68.0) % Lymph % (Auto) 8.2 L (22.0-35.0) % [place] % (Auto) 2.9 (1.0-6.0) % Eos % (Auto) 0.0 L (1.5-5.0) % Baso % (Auto) 0.0 (0.0-3.0) % Gran # 3.68 (1.4-6.5) Lymph # (Auto) 0.3 L (1.2-3.4) [place] # (Auto) 0.1 (0.1-0.6) Eos # (Auto) 0.0 (0.0-0.7) Baso # (Auto) 0.00 (0.0-2.0) K/mm3 Sodium (132-148) mmol/L Potassium (3.6-5.0) mmol/L Chloride (98-107) mmol/L Carbon Dioxide (21-33) mmol/L Anion Gap (10-20) BUN (7-21) mg/dL Creatinine (0.7-1.2) mg/dl Est GFR ( Amer) Est GFR (Non-Af Amer) POC Glucose (mg/dL) 187 H 192 H (65-110) mg/dL Random Glucose (70-110) mg/dL Calcium (8.4-10.5) mg/dL Total Bilirubin (0.2-1.3) mg/dL AST (14-36) U/L ALT (7-56) U/L Alkaline Phosphatase (38-126) U/L Total Protein (5.8-8.3) g/dL Albumin (3.0-4.8) g/dL Globulin gm/dL Albumin/Globulin Ratio (1.1-1.8) Laboratory Results - last 24 hr 08/10/18 08/10/18 08/11/18 16:41 21:47 05:30 WBC 4.1 L D RBC 3.22 L Hgb 9.3 L Hct 28.1 L MCV 87.3 MCH 28.9 MCHC 33.1 RDW 20.3 H Plt Count 80 L MPV 9.2 Gran % 88.9 H Lymph % (Auto) 8.2 L [place] % (Auto) 2.9 Eos % (Auto) 0.0 L Baso % (Auto) 0.0 Gran # 3.68 Lymph # (Auto) 0.3 L [place] # (Auto) 0.1 Eos # (Auto) 0.0 Baso # (Auto) 0.00 Sodium Potassium Chloride Carbon Dioxide Anion Gap BUN Creatinine Est GFR ( Amer) Est GFR (Non-Af Amer) POC Glucose (mg/dL) 192 H 187 H Random Glucose Calcium Total Bilirubin AST ALT Alkaline Phosphatase Total Protein Albumin Globulin Albumin/Globulin Ratio 08/11/18 08/11/18 08/11/18 05:30 11:21 16:01 WBC RBC Hgb Hct MCV MCH MCHC RDW Plt Count MPV Gran % Lymph % (Auto) [place] % (Auto) Eos % (Auto) Baso % (Auto) Gran # Lymph # (Auto) [place] # (Auto) Eos # (Auto) Baso # (Auto) Sodium 133 Potassium 4.7 Chloride 109 H Carbon Dioxide 19 L Anion Gap 10 BUN 25 H Creatinine 1.2 Est GFR ( Amer) 53 Est GFR (Non-Af Amer) 43 POC Glucose (mg/dL) 208 H 131 H Random Glucose 131 H Calcium 8.6 Total Bilirubin 0.6 AST 44 H D ALT 70 H Alkaline Phosphatase 339 H Total Protein 4.0 L Albumin 1.5 L Globulin 2.5 Albumin/Globulin Ratio 0.6 L Critical Care Progress Note - Nutrition Nutrition: Nutrition Category Date Time Status Diabetic [Consistent Carbohydrate] [DIET] Diets 08/11/18 Dinner Ordered Addendum Addendum: 08/11/18 17:42 ICU Attending Addendum Patient seen and examined. Case reviewed on round with housestaff. Agree with resident note above with the following additions/exceptions: 77 year old female with a PMH of HTN, DM, JOSE, Chron's disease, dementia and now new stroke and new onset atrial fibrillation who now presents with multiple episodes of hematochezia. She was started on eliquis and later devloped rectal bleeding. HB stable now GI performed EGD and sig on 08/08 findings consistent with crohns hemodynamically stable LFTs improved however ALP rising GI on board cont to monitor no more transfusions for now will re-trial eliquis again today at lower dose cont to monitor for GI bleeding holding nsaids neuro on consult for stroke management Patient has dips in BP at night, unclear why started on midodrine 5mg TID today Rest of care as above Ruel Bautista MD Pulmonary Critical Care and Sleep Medicine
[2018-08-11] MEDS: Insulin Reg-MEDIUM-Coverage SC SCH ×4 (07:58→23:46)
[2018-08-11] MEDS: Mesalamine ER Cap 500 MG PO SCH ×4 (09:26→23:30)
[2018-08-11] MEDS: Cholecalciferol 1,000 INTLU TAB PO SCH (09:26)
[2018-08-11] MEDS: Cefepime 1gm in NS 100ml 1 GM/100 ML BAG IVPB SCH ×2 (09:27→23:29)
--- NOTE | 2018-08-11 10:19 | CP.PCM.PN ---
<Linden Aldana - Last Filed: 08/11/18 17:39> Subjective - Date & Time of Evaluation Date of Evaluation: 08/11/18 Time of Evaluation: 10:16 - Subjective Subjective: Neurology Progress Note for Dr. Fry Patient seen and examined at bedside. No acute overnight events. Patient is AOx2 (person and place). Patient is able to follow commands appropriately. Patient denies CP, SOB, n/v/d, abdominal pain, fever, chills, KELLY, or dizziness. Objective - Vital Signs/Intake and Output Vital Signs (last 24 hours): Temp Pulse Resp BP Pulse Ox 97.2 F L 86 16 98/58 L 100 08/11/18 07:30 08/11/18 09:25 08/11/18 08:00 08/11/18 09:25 08/11/18 08:00 Intake and Output: 08/11/18 08/11/18 06:59 18:59 Intake Total 1040 Output Total 400 Balance 640 - Medications Medications: Current Medications Acetaminophen (Tylenol 325mg Tab) 650 mg PO Q6H PRN PRN Reason: Pain, moderate (4-7) Last Admin: 08/10/18 21:32 Dose: 650 mg Albuterol/Ipratropium (Duoneb 3 Mg/0.5 Mg (3 Ml) Ud) 3 ml IH [id number] [facility] Last Admin: 08/11/18 08:10 Dose: 3 ml Apixaban (Eliquis) 5 mg PO BID [facility]; Protocol Last Admin: 08/06/18 17:09 Dose: 5 mg Aspirin (Aspirin Chewable) 81 mg PO DAILY [facility] Last Admin: 08/07/18 10:42 Dose: Not Given Atorvastatin Calcium (Lipitor) 40 mg PO DIN [facility] Last Admin: 08/10/18 17:43 Dose: 40 mg Cholecalciferol (Vitamin D) 2,000 intlu PO DAILY [facility] Last Admin: 08/11/18 09:26 Dose: 2,000 intlu Diltiazem HCl (Cardizem) 60 mg PO TID [facility] Last Admin: 08/11/18 09:25 Dose: Not Given Guaifenesin (Robitussin) 100 mg PO Q4H PRN PRN Reason: Cough Last Admin: 08/09/18 15:41 Dose: 100 mg Metronidazole (Flagyl) 500 mg in 100 mls @ 100 mls/hr IVPB Q8 [facility]; Protocol Last Admin: 08/11/18 06:38 Dose: 100 mls/hr Cefepime HCl (Maxipime 1gm) 1 gm in 100 mls @ 100 mls/hr IVPB Q12 [facility]; Protocol Last Admin: 08/11/18 09:27 Dose: 100 mls/hr Insulin Human Regular (Humulin R Med) 0 units SC ACHS [facility]; Protocol Last Admin: 08/11/18 07:58 Dose: Not Given Lorazepam (Ativan) 0.25 mg PO Q6 PRN; 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 Reason: Anxiety Last Admin: 08/09/18 21:48 Dose: 0.25 mg Mesalamine (Pentasa) 500 mg PO QID [facility] Last Admin: 08/11/18 09:26 Dose: 500 mg Ondansetron HCl (Zofran Inj) 4 mg IVP Q4H PRN PRN Reason: Nausea/Vomiting Last Admin: 08/06/18 06:39 Dose: 4 mg Pantoprazole Sodium (Protonix Ec Tab) 40 mg PO 0600 [facility] Last Admin: 08/11/18 06:38 Dose: 40 mg Prednisone (Prednisone Tab) 20 mg PO BID [facility] Last Admin: 08/11/18 09:26 Dose: 20 mg Quetiapine Fumarate (Seroquel) 12.5 mg PO HS PRN; 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 Reason: Agitation Last Admin: 08/10/18 21:31 Dose: 12.5 mg - Labs Labs: 08/11/18 05:30 08/11/18 05:30 PT 28.2 SECONDS (9.4-12.5) H 08/07/18 09:00 INR 2.41 08/07/18 09:00 APTT 36.0 Seconds (25.1-36.5) 08/01/18 05:30 - Constitutional Appears: No Acute Distress - Head Exam Head Exam: NORMAL INSPECTION - Eye Exam Eye Exam: Normal appearance - ENT Exam ENT Exam: Mucous Membranes Moist, Normal Exam - Neck Exam Neck Exam: Normal Inspection - Respiratory Exam Respiratory Exam: Clear to Ausculation Bilateral. absent: Rales, Rhonchi, Wheezes - Cardiovascular Exam Cardiovascular Exam: REGULAR RHYTHM, RRR - GI/Abdominal Exam GI & Abdominal Exam: Soft. absent: Distended, Guarding, Tenderness, Rebound - Extremities Exam Extremities Exam: Normal Inspection - Back Exam Back Exam: NORMAL INSPECTION - Neurological Exam Neurological Exam: Alert, Awake - Psychiatric Exam Psychiatric exam: Normal Affect, Normal Mood - Skin Skin Exam: Normal Color Assessment and Plan - Assessment and Plan (Free Text) Assessment: Patient is a 77 year old female with a past medical history of HTN, DM2, and OA who was admitted for evaluation and treatment of altered mental status and hallucinations/delusions. Neurology was consulted for management of altered mental status. Plan: - 07/28/[address] without contrast- Moderate volume loss and chronic microvascular ischemic disease. No evidence of acute intracranial hemorrhage mass effect or midline shift. - 07/29/2018 Brain MRI with and without contrast- multiple small cortical and subcortical infarcts in both hemispheres right greater than left - 07/30/2018 CTA head and neck- No evidence of stenosis or occlusion, Unremarkable CT Angiography of the Brain. - 07/2018 Echocardiogram- LVEF 63%, moderate to severe aortic regurg - 08/06/2018- CT Head without Contrast- No acute findings - Continue with PT, OT, and speech therapy - Recommend neurocognitive therapy on outpatient basis Will discuss with attending. Garcia Aldana DO PGY2 <Shital Fry - Last Filed: 08/11/18 22:46> Objective - Vital Signs/Intake and Output Vital Signs (last 24 hours): Temp Pulse Resp BP Pulse Ox 97.2 F L 135 H 23 131/51 L 96 08/11/18 12:00 08/11/18 17:55 08/11/18 17:50 08/11/18 17:55 08/11/18 17:50 Intake and Output: 08/11/18 08/12/18 18:59 06:59 Intake Total 440 Output Total 180 Balance 260 - Medications Medications: Current Medications Acetaminophen (Tylenol 325mg Tab) 650 mg PO Q6H PRN PRN Reason: Pain, moderate (4-7) Last Admin: 08/10/18 21:32 Dose: 650 mg Albuterol/Ipratropium (Duoneb 3 Mg/0.5 Mg (3 Ml) Ud) 3 ml IH [id number] [facility] Last Admin: 08/11/18 19:38 Dose: 3 ml Apixaban (Eliquis) 2.5 mg PO BID [facility]; Protocol Last Admin: 08/11/18 17:17 Dose: 2.5 mg Aspirin (Aspirin Chewable) 81 mg PO DAILY [facility] Last Admin: 08/07/18 10:42 Dose: Not Given Atorvastatin Calcium (Lipitor) 40 mg PO DIN [facility] Last Admin: 08/11/18 17:17 Dose: 40 mg Cholecalciferol (Vitamin D) 2,000 intlu PO DAILY [facility] Last Admin: 08/11/18 09:26 Dose: 2,000 intlu Diltiazem HCl (Cardizem) 60 mg PO TID [facility] Last Admin: 08/11/18 17:55 Dose: 60 mg Guaifenesin (Robitussin) 100 mg PO Q4H PRN PRN Reason: Cough Last Admin: 08/09/18 15:41 Dose: 100 mg Metronidazole (Flagyl) 500 mg in 100 mls @ 100 mls/hr IVPB Q8 [facility]; Protocol Last Admin: 08/11/18 14:13 Dose: 100 mls/hr Cefepime HCl (Maxipime 1gm) 1 gm in 100 mls @ 100 mls/hr IVPB Q12 [facility]; Protocol Last Admin: 08/11/18 09:27 Dose: 100 mls/hr Insulin Human Regular (Humulin R Med) 0 units SC ACHS [facility]; Protocol Last Admin: 08/11/18 17:11 Dose: Not Given Lorazepam (Ativan) 0.25 mg PO Q6 PRN; 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 Reason: Anxiety Last Admin: 08/09/18 21:48 Dose: 0.25 mg Mesalamine (Pentasa) 500 mg PO QID [facility] Last Admin: 08/11/18 17:17 Dose: 500 mg Midodrine (Proamatine) 5 mg PO TID [facility] Last Admin: 08/11/18 17:17 Dose: 5 mg Ondansetron HCl (Zofran Inj) 4 mg IVP Q4H PRN PRN Reason: Nausea/Vomiting Last Admin: 08/06/18 06:39 Dose: 4 mg Pantoprazole Sodium (Protonix Ec Tab) 40 mg PO 0600 [facility] Last Admin: 08/11/18 06:38 Dose: 40 mg Prednisone (Prednisone Tab) 20 mg PO BID [facility] Last Admin: 08/11/18 17:17 Dose: 20 mg Quetiapine Fumarate (Seroquel) 12.5 mg PO HS PRN; 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 Reason: Agitation Last Admin: 08/11/18 20:11 Dose: 12.5 mg - Labs Labs: 08/11/18 05:30 08/11/18 05:30 PT 28.2 SECONDS (9.4-12.5) H 08/07/18 09:00 INR 2.41 08/07/18 09:00 APTT 36.0 Seconds (25.1-36.5) 08/01/18 05:30 Assessment and Plan - Assessment and Plan (Free Text) Plan: All medical record entries made by the resident were at my direction and personally dictated by me. I have reviewed the chart and agree that the record accurately reflects my personal performance of the history, physical exam, medical decision making, and the department course for this patient. I have also personally directed, reviewed, and agree with the discharge instructions and disposition. Agree with above. Miss callahan suffered multiple embolic strokes, and stroke workup is now completed She will need outpatient followup with neurology and psychiatry. DR. fry Neurology
--- NOTE | 2018-08-11 13:11 | CP.PCM.PN ---
Subjective - Date & Time of Evaluation Date of Evaluation: 08/10/18 Time of Evaluation: 11:30 - Subjective Subjective: Denies abdominal pain, no fevers, no nausea. Objective - Vital Signs/Intake and Output Vital Signs (last 24 hours): Temp Pulse Resp BP Pulse Ox 98.8 F 87 26 H 92/52 L 97 08/08/18 15:04 08/09/18 10:30 08/09/18 10:30 08/09/18 10:00 08/09/18 10:30 Intake and Output: 08/09/18 08/09/18 06:59 18:59 Intake Total 1200 Output Total 275 Balance 925 - Medications Medications: Current Medications Acetaminophen (Tylenol 325mg Tab) 650 mg PO Q6H PRN PRN Reason: Fever >100.4 F Last Admin: 08/05/18 14:04 Dose: 650 mg Apixaban (Eliquis) 5 mg PO BID [facility]; Protocol Last Admin: 08/06/18 17:09 Dose: 5 mg Aspirin (Aspirin Chewable) 81 mg PO DAILY [facility] Last Admin: 08/07/18 10:42 Dose: Not Given Atorvastatin Calcium (Lipitor) 40 mg PO DIN [facility] Last Admin: 08/08/18 16:27 Dose: Not Given Cholecalciferol (Vitamin D) 2,000 intlu PO DAILY [facility] Last Admin: 08/09/18 09:21 Dose: 2,000 intlu Diltiazem HCl (Cardizem) 60 mg PO TID [facility] Last Admin: 08/09/18 09:21 Dose: 60 mg Metronidazole (Flagyl) 500 mg in 100 mls @ 100 mls/hr IVPB Q8 [facility]; Protocol Last Admin: 08/09/18 05:25 Dose: 100 mls/hr Cefepime HCl (Maxipime 1gm) 1 gm in 100 mls @ 100 mls/hr IVPB Q12 [facility]; Protocol Last Admin: 08/09/18 09:20 Dose: 100 mls/hr Potassium Chloride 80 meq/ (Dextrose/Sodium Chloride) 1,040 mls @ 100 mls/hr IV .[id number] [facility] Insulin Human Regular (Humulin R Med) 0 units SC ACHS [facility]; Protocol Last Admin: 08/09/18 11:16 Dose: Not Given Lorazepam (Ativan) 0.25 mg PO Q6 PRN; 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 Reason: Anxiety Last Admin: 08/07/18 00:19 Dose: 0.25 mg Mesalamine (Rowasa Enema) 4 gm RC BID [facility] Last Admin: 08/09/18 13:17 Dose: Not Given Mesalamine (Pentasa) 500 mg PO QID [facility] Last Admin: 08/09/18 09:21 Dose: 500 mg Metoprolol Tartrate (Lopressor) 5 mg IVP ONCE PRN PRN Reason: Other Ondansetron HCl (Zofran Inj) 4 mg IVP Q4H PRN PRN Reason: Nausea/Vomiting Last Admin: 08/06/18 06:39 Dose: 4 mg Pantoprazole Sodium (Protonix Ec Tab) 40 mg PO 0600 [facility] Last Admin: 08/09/18 05:26 Dose: 40 mg Prednisone (Prednisone Tab) 20 mg PO BID [facility] Quetiapine Fumarate (Seroquel) 12.5 mg PO HS PRN; 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 Reason: Agitation Last Admin: 08/06/18 23:08 Dose: 12.5 mg - Labs Labs: 08/09/18 05:05 08/09/18 05:05 PT 28.2 SECONDS (9.4-12.5) H 08/07/18 09:00 INR 2.41 08/07/18 09:00 APTT 36.0 Seconds (25.1-36.5) 08/01/18 05:30 - Constitutional Appears: Chronically Ill - Head Exam Head Exam: NORMAL INSPECTION - Respiratory Exam Respiratory Exam: Decreased Breath Sounds - Cardiovascular Exam Cardiovascular Exam: +S1, +S2 - GI/Abdominal Exam GI & Abdominal Exam: Soft. absent: Tenderness Assessment and Plan - Assessment and Plan (Free Text) Plan: Assessment consider pancolitis from Crohn's disease, infectious work up so far negative acute CVA HTN DM COPD OA Plan continue Cefepime and Flagyl day 8 for 10-14 days - stool cx are negative; reviewed colonoscopy results follow up further plans of GI will continue to monitor clinically
--- NOTE | 2018-08-11 13:56 | CP.PCM.PN ---
Subjective - Date & Time of Evaluation Date of Evaluation: 08/11/18 Time of Evaluation: 08:00 - Subjective Subjective: Resident Progress Note for Hospitalist Service Patient examined at bedside. No acute events overnight. History is difficult to obtain due to patient's mental status. Patient does admit to some back pain. Objective - Vital Signs/Intake and Output Vital Signs (last 24 hours): Temp Pulse Resp BP Pulse Ox 97.2 F L 85 23 108/57 L 98 08/11/18 07:30 08/11/18 12:00 08/11/18 12:00 08/11/18 12:00 08/11/18 12:00 Intake and Output: 08/11/18 08/11/18 06:59 18:59 Intake Total 1040 Output Total 400 Balance 640 - Medications Medications: Current Medications Acetaminophen (Tylenol 325mg Tab) 650 mg PO Q6H PRN PRN Reason: Pain, moderate (4-7) Last Admin: 08/10/18 21:32 Dose: 650 mg Albuterol/Ipratropium (Duoneb 3 Mg/0.5 Mg (3 Ml) Ud) 3 ml IH [id number] [facility] Last Admin: 08/11/18 08:10 Dose: 3 ml Apixaban (Eliquis) 2.5 mg PO BID [facility]; Protocol Aspirin (Aspirin Chewable) 81 mg PO DAILY [facility] Last Admin: 08/07/18 10:42 Dose: Not Given Atorvastatin Calcium (Lipitor) 40 mg PO DIN [facility] Last Admin: 08/10/18 17:43 Dose: 40 mg Cholecalciferol (Vitamin D) 2,000 intlu PO DAILY [facility] Last Admin: 08/11/18 09:26 Dose: 2,000 intlu Diltiazem HCl (Cardizem) 60 mg PO TID [facility] Last Admin: 08/11/18 09:25 Dose: Not Given Guaifenesin (Robitussin) 100 mg PO Q4H PRN PRN Reason: Cough Last Admin: 08/09/18 15:41 Dose: 100 mg Metronidazole (Flagyl) 500 mg in 100 mls @ 100 mls/hr IVPB Q8 [facility]; Protocol Last Admin: 08/11/18 06:38 Dose: 100 mls/hr Cefepime HCl (Maxipime 1gm) 1 gm in 100 mls @ 100 mls/hr IVPB Q12 [facility]; Protocol Last Admin: 08/11/18 09:27 Dose: 100 mls/hr Insulin Human Regular (Humulin R Med) 0 units SC ACHS [facility]; Protocol Last Admin: 08/11/18 11:58 Dose: 3 unit Lorazepam (Ativan) 0.25 mg PO Q6 PRN; 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 Reason: Anxiety Last Admin: 08/09/18 21:48 Dose: 0.25 mg Mesalamine (Pentasa) 500 mg PO QID [facility] Last Admin: 08/11/18 09:26 Dose: 500 mg Midodrine (Proamatine) 5 mg PO TID [facility] Ondansetron HCl (Zofran Inj) 4 mg IVP Q4H PRN PRN Reason: Nausea/Vomiting Last Admin: 08/06/18 06:39 Dose: 4 mg Pantoprazole Sodium (Protonix Ec Tab) 40 mg PO 0600 [facility] Last Admin: 08/11/18 06:38 Dose: 40 mg Prednisone (Prednisone Tab) 20 mg PO BID [facility] Last Admin: 08/11/18 09:26 Dose: 20 mg Quetiapine Fumarate (Seroquel) 12.5 mg PO HS PRN; 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 Reason: Agitation Last Admin: 08/10/18 21:31 Dose: 12.5 mg - Labs Labs: 08/11/18 05:30 08/11/18 05:30 PT 28.2 SECONDS (9.4-12.5) H 08/07/18 09:00 INR 2.41 08/07/18 09:00 APTT 36.0 Seconds (25.1-36.5) 08/01/18 05:30 - Constitutional Appears: Non-toxic, No Acute Distress - Head Exam Head Exam: ATRAUMATIC, NORMOCEPHALIC - Eye Exam Eye Exam: EOMI, Normal appearance - ENT Exam ENT Exam: Mucous Membranes Moist, Normal Exam - Neck Exam Neck Exam: Normal Inspection - Respiratory Exam Respiratory Exam: Clear to Ausculation Bilateral, NORMAL BREATHING PATTERN - Cardiovascular Exam Cardiovascular Exam: REGULAR RHYTHM, +S1, +S2 - GI/Abdominal Exam GI & Abdominal Exam: Soft, Normal Bowel Sounds. absent: Tenderness - Extremities Exam Extremities Exam: Normal Capillary Refill, Normal Inspection - Neurological Exam Neurological Exam: Alert, Awake. absent: Oriented x3 - Skin Skin Exam: Dry, Intact, Warm Assessment and Plan - Assessment and Plan (Free Text) Assessment: 77 yo F with PMHx of HTN, DM, osteoarthritis, COPD and suspected Crohn's Disease 2014 (not currently on maintenance therapy) presenting with AMS. Active treatment of NSTEMI< bilateral ischemic CVAs on ASA with Plavix held 2/2 concern for diarrhea with hematochezia. CT A/P PO contrast showed thickening of small bowel, descending, and recto-sigmoid colon. 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 Patient is a candidate for TCU but also had suicidal intent during hospital course placed on 1:1. Patient has been cleared by psych and 1:1 precautions was discontinued. Recently, patient had a new onset of Afib with RVR. Given high CHADVASC score, patient started on anticoagulation (Eliquis), however, patient had active rectal bleeding, since resolved. Plan: Non-Active GI Bleed 2/2 Crohn's Flare - Hgb stable - CT A/P (08/03): segmental circumferential mucal thickening in proximal small bowel and mild distal descending colon and sigmoid colon. May represent acute, infectious, or inflammatory etiology. Severe diffuse anasarca. - Bleeding scan (08/05): no evidence of active GI bleed - ICU consulted. Recs appreciated. - s/p flex sig and endoscopy 08/08 * negative EGD, no active upper GI bleeding, no gastric ulcers * Flex sig to 40cm with Crohn Disease score of 14, ulcerations - GI consulted. Recs appreciated. - continue pentasa 500 mg PO QID and flagyl 500 mg IV Q8 -f/u IBD series Delirium 2/2 New Watershed Stroke - Ativan .25 mg q6 prn for agitation - Cardio does not recommend [facility] - PT recommends acute rehab - Brain MRI (07/30): multiple small cortical and subcortical infarcts in both hemispheres (R>L). Infarcts could be due to hypotensive watershed infarct. - Head/Neck CTA (07/30): negative - Echo (07/31): EF 62%. Mod-severe aortic regurgitation. Mild pulmonary HTN. - Neuro recs appreciated - Psychiatry recs appreciated Afib with RVR - rate controlled - Eliquis resumed - Cardizem PO TID and Lopressor 5mg IVP prn - Cardio recs appreciated Fever with septic workup - resolved - BCx, Ucx negative - patient afebrile, no leukocytosis Suicidal intent - resolved - Psych recs appreciated - 1:1 precautions discontinued; cleared by psych NSTEMI - elevated troponins 2/2 stroke - No cath at this time. Continue medical management. - trops 0.18 -> .14 -secondary to stroke Hx of HTN - Recent SBP trending in the 90s - BP meds held at this time Hx of DM II - continue to monitor - ISS PPx, Diet, Disposition -DVT: SCDs, no anticoagulation at this time -GI: protonix -PT on board: acute rehab recs -Dispo: patient is DNR/DNI, palliative on board. Patient is still pending an accepting facility. EARC was done and approved for 10 days. Good until 08/[address] Anthony White PGY-1
--- NOTE | 2018-08-11 14:38 | PN ---
DATE: 08/11/2018 SUBJECTIVE: The patient is without complaints. PHYSICAL EXAMINATION: VITAL SIGNS: Stable. NECK: Negative JVD. LUNGS: Without rales. HEART: S1, S2. EXTREMITIES: Without edema. LABORATORY: Hemoglobin is 9.3. Chemistries; BUN and creatinine 25 and 1.2. IMPRESSION: 1. Gastrointestinal bleed. 2. No evidence for source for her for her gastrointestinal bleed. 3. Atrial fibrillation. 4. Cerebrovascular accident. 5. [id number] myocardial infarction. Given these findings; the risks, benefit analysis for starting anticoagulation on the patient is difficult. However, given no source of bleeding and her hemoglobin remaining stable, risks and benefit analysis would lend for a trial of low-dose Effient to prevent another stroke from her paroxysmal atrial fibrillation. We will need to watch her loss of blood and track hemoglobin carefully. Tello Talbert MD
--- NOTE | 2018-08-11 14:53 | CP.PCM.PN ---
Subjective - Date & Time of Evaluation Date of Evaluation: 08/11/18 Time of Evaluation: 14:50 - Subjective Subjective: Gastroenterology Fellow/PGY6 Progress Note Patient had multiple liquid stools without hematochezia yesterday. Tolerating clear liquid diet. Denies abdominal pain. A 12-point review of systems negative except for as above. Objective - Vital Signs/Intake and Output Vital Signs (last 24 hours): Temp Pulse Resp BP Pulse Ox 97.2 F L 82 21 110/56 L 96 08/11/18 12:00 08/11/18 14:13 08/11/18 14:10 08/11/18 14:13 08/11/18 14:10 Intake and Output: 08/11/18 08/11/18 06:59 18:59 Intake Total 1040 Output Total 400 Balance 640 - Medications Medications: Current Medications Acetaminophen (Tylenol 325mg Tab) 650 mg PO Q6H PRN PRN Reason: Pain, moderate (4-7) Last Admin: 08/10/18 21:32 Dose: 650 mg Albuterol/Ipratropium (Duoneb 3 Mg/0.5 Mg (3 Ml) Ud) 3 ml IH [id number] [facility] Last Admin: 08/11/18 14:47 Dose: 3 ml Apixaban (Eliquis) 2.5 mg PO BID [facility]; Protocol Aspirin (Aspirin Chewable) 81 mg PO DAILY [facility] Last Admin: 08/07/18 10:42 Dose: Not Given Atorvastatin Calcium (Lipitor) 40 mg PO DIN [facility] Last Admin: 08/10/18 17:43 Dose: 40 mg Cholecalciferol (Vitamin D) 2,000 intlu PO DAILY [facility] Last Admin: 08/11/18 09:26 Dose: 2,000 intlu Diltiazem HCl (Cardizem) 60 mg PO TID [facility] Last Admin: 08/11/18 14:13 Dose: 60 mg Guaifenesin (Robitussin) 100 mg PO Q4H PRN PRN Reason: Cough Last Admin: 08/09/18 15:41 Dose: 100 mg Metronidazole (Flagyl) 500 mg in 100 mls @ 100 mls/hr IVPB Q8 [facility]; Protocol Last Admin: 08/11/18 14:13 Dose: 100 mls/hr Cefepime HCl (Maxipime 1gm) 1 gm in 100 mls @ 100 mls/hr IVPB Q12 [facility]; Protocol Last Admin: 08/11/18 09:27 Dose: 100 mls/hr Insulin Human Regular (Humulin R Med) 0 units SC ACHS [facility]; Protocol Last Admin: 08/11/18 11:58 Dose: 3 unit Lorazepam (Ativan) 0.25 mg PO Q6 PRN; 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 Reason: Anxiety Last Admin: 08/09/18 21:48 Dose: 0.25 mg Mesalamine (Pentasa) 500 mg PO QID [facility] Last Admin: 08/11/18 14:13 Dose: 500 mg Midodrine (Proamatine) 5 mg PO TID [facility] Last Admin: 08/11/18 14:13 Dose: 5 mg Ondansetron HCl (Zofran Inj) 4 mg IVP Q4H PRN PRN Reason: Nausea/Vomiting Last Admin: 08/06/18 06:39 Dose: 4 mg Pantoprazole Sodium (Protonix Ec Tab) 40 mg PO 0600 [facility] Last Admin: 08/11/18 06:38 Dose: 40 mg Prednisone (Prednisone Tab) 20 mg PO BID [facility] Last Admin: 08/11/18 09:26 Dose: 20 mg Quetiapine Fumarate (Seroquel) 12.5 mg PO HS PRN; 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 Reason: Agitation Last Admin: 08/10/18 21:31 Dose: 12.5 mg - Labs Labs: 08/11/18 05:30 08/11/18 05:30 PT 28.2 SECONDS (9.4-12.5) H 08/07/18 09:00 INR 2.41 08/07/18 09:00 APTT 36.0 Seconds (25.1-36.5) 08/01/18 05:30 - Constitutional Appears: Non-toxic, No Acute Distress - Head Exam Head Exam: ATRAUMATIC, NORMOCEPHALIC - Eye Exam Eye Exam: EOMI, PERRL. absent: Scleral icterus Pupil Exam: PERRL. absent: Miosis, Mydriatic - ENT Exam ENT Exam: Mucous Membranes Moist, Normal Oropharynx - Neck Exam Neck Exam: Full ROM, Normal Inspection - Respiratory Exam Respiratory Exam: Clear to Ausculation Bilateral. absent: Rales, Rhonchi, Wheezes - Cardiovascular Exam Cardiovascular Exam: RRR, +S1, +S2. absent: Gallop, Rubs - GI/Abdominal Exam GI & Abdominal Exam: Soft, Normal Bowel Sounds. absent: Distended, Firm, Guarding, Rigid, Tenderness, Organomegaly, Rebound - Extremities Exam Extremities Exam: Normal Inspection. absent: Pedal Edema - Neurological Exam Neurological Exam: Alert, Awake - Psychiatric Exam Psychiatric exam: Normal Affect, Normal Mood - Skin Skin Exam: Dry, Intact, Normal Color, Warm Assessment and Plan - Assessment and Plan (Free Text) Assessment: 77 year old female with PMH of HTN, DM, osteoarthritis, COPD and suspected Crohn's Disease 2014 (not currently on maintenance therapy) presenting with altered mental status. Active treatment of bilateral ischemic CVAs and bloody diarrhea requiring 2 Units pRBCs likely 2/[address] A/P PO contrast showed thickening of small bowel, descending, and recto-sigmoid colon. 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 Plan: -H/H stable -pending flexible sigmoidoscopy pathology -on Prednisone 20mg BID day 3 -continue Rowasa enema and Mesalamine 500mg QID -ID managing -on cefepime and flagyl day 8 of 10-14 days total -advanced to puree diet, thin liquids -will require outpatient follow up for full colonoscopy to complete colon evaluation and assess response to medical treatment -given active GI bleed source from left sided ulcerated colonic mucosa- recommend against use of NOACs -follow up neurology recommendations -will follow clinical course
[2018-08-11] MEDS ORDERED: Sodium Chloride 0.9% 500 ML IV STA (18:25)
[2018-08-12] MEDS: Albuterol-Ipratrop 3 mg / 0.5 (3 ml) UD IH SCH ×4 (01:00→20:10)
[2018-08-12 06:01] LABS: GRAN # 8.03 (1.4-6.5); GRAN % 90.6 % (50.0-68.0); HEMOGLOBIN 9.8 g/dL (12.0-16.0); LYMPH # 0.5 (1.2-3.4); LYMPH % 5.8 % (22.0-35.0); MEAN CELL VOLUME 89.8 fl (80.0-105.0); MEAN CORPUSCULAR HEMOGLOBIN 29.5 pg (25.0-35.0); MEAN CORPUSCULAR HGB CONC 32.9 g/dl (31.0-37.0); MEAN PLATELET VOLUME 10.3 fl (7.0-11.0); MONO # 0.3 (0.1-0.6); MONO % 3.6 % (1.0-6.0); PLATELET COUNT 122 10^3/uL (120.0-450.0); RBC 3.32 10^6/uL (3.5-6.1); WHITE BLOOD COUNT 8.9 10^3/uL (4.5-11.0)
[2018-08-12 06:23] LABS: ALBUMIN 1.6 g/dL (3.0-4.8); CALCIUM 8.4 mg/dL (8.4-10.5)
[2018-08-12 06:24] LABS: ALB/GLOB RATIO 0.6 (1.1-1.8)
[2018-08-12 06:41] LABS: BAND 4 % (0-2); LYMPHOCYTE 5 % (22.0-35.0); MONOCYTE 1 % (1.0-6.0); NEUTROPHIL 90 % (50.0-70.0)
[2018-08-12 06:42] LABS: ACANTHROCYTES SLIGHT; ANISOCYTOSIS SLIGHT; PLATELET ESTIMATE NORMAL (NORMAL); TEAR DROP CELLS SLIGHT; TOXIC GRANULATION SLIGHT
[2018-08-12] MEDS: metroNIDAZOLE IV 500 mg/100 ml 500 MG/100 ML BAG IVPB SCH ×3 (06:50→21:03)
[2018-08-12] MEDS ORDERED: Sodium Chloride 0.9% 500 ML IV STA (07:44)
[2018-08-12] MEDS: Pantoprazole 40 mg EC Tab PO SCH (07:56)
[2018-08-12] MEDS: Insulin Reg-MEDIUM-Coverage SC SCH ×4 (08:33→21:54)
[2018-08-12] MEDS ORDERED: Sodium Chloride 0.9% 1,000 ML IV STA (09:12)
--- NOTE | 2018-08-12 09:32 | CP.PCM.PN ---
Subjective - Date & Time of Evaluation Date of Evaluation: 08/11/18 Time of Evaluation: 14:00 - Subjective Subjective: Alert,agitated at times. Objective - Vital Signs/Intake and Output Vital Signs (last 24 hours): Temp Pulse Resp BP Pulse Ox 97.2 F L 122 H 18 82/58 L 100 08/11/18 12:00 08/12/18 08:00 08/12/18 08:00 08/12/18 08:00 08/12/18 08:00 Intake and Output: 08/12/18 08/12/18 06:59 18:59 Intake Total 1360 Output Total 250 Balance 1110 - Medications Medications: Current Medications Acetaminophen (Tylenol 325mg Tab) 650 mg PO Q6H PRN PRN Reason: Pain, moderate (4-7) Last Admin: 08/10/18 21:32 Dose: 650 mg Albuterol/Ipratropium (Duoneb 3 Mg/0.5 Mg (3 Ml) Ud) 3 ml IH [id number] [facility] Last Admin: 08/12/18 07:31 Dose: 3 ml Apixaban (Eliquis) 2.5 mg PO BID [facility]; Protocol Last Admin: 08/11/18 17:17 Dose: 2.5 mg Aspirin (Aspirin Chewable) 81 mg PO DAILY [facility] Last Admin: 08/07/18 10:42 Dose: Not Given Atorvastatin Calcium (Lipitor) 40 mg PO DIN [facility] Last Admin: 08/11/18 17:17 Dose: 40 mg Cholecalciferol (Vitamin D) 2,000 intlu PO DAILY [facility] Last Admin: 08/11/18 09:26 Dose: 2,000 intlu Diltiazem HCl (Cardizem) 60 mg PO TID [facility] Last Admin: 08/11/18 17:55 Dose: 60 mg Guaifenesin (Robitussin) 100 mg PO Q4H PRN PRN Reason: Cough Last Admin: 08/09/18 15:41 Dose: 100 mg Metronidazole (Flagyl) 500 mg in 100 mls @ 100 mls/hr IVPB Q8 [facility]; Protocol Last Admin: 08/12/18 06:50 Dose: 100 mls/hr Cefepime HCl (Maxipime 1gm) 1 gm in 100 mls @ 100 mls/hr IVPB Q12 [facility]; Protocol Last Admin: 08/11/18 23:29 Dose: 100 mls/hr Sodium Chloride (Sodium Chloride 0.9%) 1,000 mls @ 999 mls/hr IV .Q1H1M [facility] Stop: 08/12/18 10:12 Insulin Human Regular (Humulin R Med) 0 units SC ACHS [facility]; Protocol Last Admin: 08/12/18 08:33 Dose: Not Given Lorazepam (Ativan) 0.25 mg PO Q6 PRN; 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 Reason: Anxiety Last Admin: 08/09/18 21:48 Dose: 0.25 mg Mesalamine (Pentasa) 500 mg PO QID [facility] Last Admin: 08/11/18 23:30 Dose: 500 mg Midodrine (Proamatine) 5 mg PO TID [facility] Last Admin: 08/11/18 17:17 Dose: 5 mg Ondansetron HCl (Zofran Inj) 4 mg IVP Q4H PRN PRN Reason: Nausea/Vomiting Last Admin: 08/06/18 06:39 Dose: 4 mg Pantoprazole Sodium (Protonix Ec Tab) 40 mg PO 0600 [facility] Last Admin: 08/12/18 07:56 Dose: 40 mg Prednisone (Prednisone Tab) 20 mg PO BID [facility] Last Admin: 08/11/18 17:17 Dose: 20 mg Quetiapine Fumarate (Seroquel) 12.5 mg PO HS PRN; 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 Reason: Agitation Last Admin: 08/11/18 20:11 Dose: 12.5 mg - Labs Labs: 08/12/18 05:45 08/12/18 05:45 PT 28.2 SECONDS (9.4-12.5) H 08/07/18 09:00 INR 2.41 08/07/18 09:00 APTT 36.0 Seconds (25.1-36.5) 08/01/18 05:30 - Constitutional Appears: No Acute Distress, Chronically Ill - Eye Exam Eye Exam: Normal appearance, PERRL - Respiratory Exam Respiratory Exam: Decreased Breath Sounds, NORMAL BREATHING PATTERN - Cardiovascular Exam Cardiovascular Exam: Irregular Rhythm, +S1, +S2 - GI/Abdominal Exam GI & Abdominal Exam: Soft, Normal Bowel Sounds - Extremities Exam Extremities Exam: Normal Capillary Refill - Neurological Exam Neurological Exam: Altered - Skin Skin Exam: Dry, Pallor Assessment and Plan - Assessment and Plan (Free Text) Assessment: 77 year old female with history of dementia, Crohn's disease, HTN, DM COPD who si admitted with acute bilateral CVA's and pancolitis Patients daughter Adina at bedside. Goals of care discussion ensued. Daughter is aware that her mother is unable to care for her self and will need mcc placement. 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 Patent is not a candidate for hospice services at this time.I explained that if patients condition worsens, hospice services can be revisited. POLST DNR/DNI directive completed. Gaols of care and advance care planning discussion, 30 minutes Plan: Mancini colitis:ID following, continue Cefepime, Flagyl. As per GI, continue Rowasa enema, Mesalamine, prednisone.Advance diet as tolerated, OT/PT Cardiology: Continue Elequis,Lopressor, Cardizem. Refer to for discharge planning Goals of care and advance care planning; POLST DNR/DNI.
[2018-08-12] MEDS: Mesalamine ER Cap 500 MG PO SCH ×4 (09:51→21:06)
[2018-08-12] MEDS: Cholecalciferol 1,000 INTLU TAB PO SCH (09:51)
[2018-08-12] MEDS: Cefepime 1gm in NS 100ml 1 GM/100 ML BAG IVPB SCH ×2 (09:52→21:04)
--- NOTE | 2018-08-12 09:54 | CP.PCM.PN ---
Subjective - Date & Time of Evaluation Date of Evaluation: 08/12/18 Time of Evaluation: 08:00 - Subjective Subjective: Resident Progress Note for Hospitalist Service Patient examined at bedside. Patient appears to be irritable and refuses to answer questions. Patient is AAOx2. Per nursing patient had an episode of hematochezia this AM. Objective - Vital Signs/Intake and Output Vital Signs (last 24 hours): Temp Pulse Resp BP Pulse Ox 97.2 F L 122 H 18 82/58 L 100 08/11/18 12:00 08/12/18 08:00 08/12/18 08:00 08/12/18 08:00 08/12/18 08:00 Intake and Output: 08/12/18 08/12/18 06:59 18:59 Intake Total 1360 Output Total 250 Balance 1110 - Medications Medications: Current Medications Acetaminophen (Tylenol 325mg Tab) 650 mg PO Q6H PRN PRN Reason: Pain, moderate (4-7) Last Admin: 08/10/18 21:32 Dose: 650 mg Albuterol/Ipratropium (Duoneb 3 Mg/0.5 Mg (3 Ml) Ud) 3 ml IH [id number] [facility] Last Admin: 08/12/18 07:31 Dose: 3 ml Apixaban (Eliquis) 2.5 mg PO BID [facility]; Protocol Last Admin: 08/11/18 17:17 Dose: 2.5 mg Aspirin (Aspirin Chewable) 81 mg PO DAILY [facility] Last Admin: 08/07/18 10:42 Dose: Not Given Atorvastatin Calcium (Lipitor) 40 mg PO DIN [facility] Last Admin: 08/11/18 17:17 Dose: 40 mg Cholecalciferol (Vitamin D) 2,000 intlu PO DAILY [facility] Last Admin: 08/11/18 09:26 Dose: 2,000 intlu Diltiazem HCl (Cardizem) 60 mg PO TID [facility] Last Admin: 08/11/18 17:55 Dose: 60 mg Guaifenesin (Robitussin) 100 mg PO Q4H PRN PRN Reason: Cough Last Admin: 08/09/18 15:41 Dose: 100 mg Metronidazole (Flagyl) 500 mg in 100 mls @ 100 mls/hr IVPB Q8 [facility]; Protocol Last Admin: 08/12/18 06:50 Dose: 100 mls/hr Cefepime HCl (Maxipime 1gm) 1 gm in 100 mls @ 100 mls/hr IVPB Q12 [facility]; Protocol Last Admin: 08/11/18 23:29 Dose: 100 mls/hr Sodium Chloride (Sodium Chloride 0.9%) 1,000 mls @ 999 mls/hr IV .Q1H1M STA Stop: 08/12/18 10:12 Insulin Human Regular (Humulin R Med) 0 units SC ACHS [facility]; Protocol Last Admin: 08/12/18 08:33 Dose: Not Given Lorazepam (Ativan) 0.25 mg PO Q6 PRN; 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 Reason: Anxiety Last Admin: 08/09/18 21:48 Dose: 0.25 mg Mesalamine (Pentasa) 500 mg PO QID [facility] Last Admin: 08/11/18 23:30 Dose: 500 mg Midodrine (Proamatine) 5 mg PO TID [facility] Last Admin: 08/11/18 17:17 Dose: 5 mg Ondansetron HCl (Zofran Inj) 4 mg IVP Q4H PRN PRN Reason: Nausea/Vomiting Last Admin: 08/06/18 06:39 Dose: 4 mg Pantoprazole Sodium (Protonix Ec Tab) 40 mg PO 0600 [facility] Last Admin: 08/12/18 07:56 Dose: 40 mg Prednisone (Prednisone Tab) 20 mg PO BID [facility] Last Admin: 08/11/18 17:17 Dose: 20 mg Quetiapine Fumarate (Seroquel) 12.5 mg PO HS PRN; 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 Reason: Agitation Last Admin: 08/11/18 20:11 Dose: 12.5 mg - Labs Labs: 08/12/18 05:45 08/12/18 05:45 PT 28.2 SECONDS (9.4-12.5) H 08/07/18 09:00 INR 2.41 08/07/18 09:00 APTT 36.0 Seconds (25.1-36.5) 08/01/18 05:30 - Additional Findings Additional findings: - Constitutional Appears: Non-toxic, No Acute Distress - Head Exam Head Exam: ATRAUMATIC, NORMOCEPHALIC - Eye Exam Eye Exam: EOMI, Normal appearance - ENT Exam ENT Exam: Mucous Membranes Moist, Normal Exam - Neck Exam Neck Exam: Normal Inspection - Respiratory Exam Respiratory Exam: Clear to Ausculation Bilateral, NORMAL BREATHING PATTERN - Cardiovascular Exam Cardiovascular Exam: REGULAR RHYTHM, +S1, +S2 - GI/Abdominal Exam GI & Abdominal Exam: Soft, Normal Bowel Sounds. absent: Tenderness - Extremities Exam Extremities Exam: Normal Capillary Refill, Normal Inspection - Neurological Exam Neurological Exam: Alert, Awake. absent: Oriented x3 - Skin Skin Exam: Dry, Intact, Warm Assessment and Plan - Assessment and Plan (Free Text) Assessment: 77 yo F with PMHx of HTN, DM, osteoarthritis, COPD and suspected Crohn's Disease 2014 (not currently on maintenance therapy) presenting with AMS. Active treatment of NSTEMI< bilateral ischemic CVAs on ASA with Plavix held 2/ concern for diarrhea with hematochezia. CT A/P PO contrast showed thickening of small bowel, descending, and recto-sigmoid colon. 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 Patient is a candidate for TCU but also had suicidal intent during hospital course placed on 1:1. Patient has been cleared by psych and 1:1 precautions was discontinued. Recently, patient had a new onset of Afib with RVR. Given high CHADVASC score, patient started on anticoagulation (Eliquis), however, patient is having active rectal bleeding. Plan: Non-Active GI Bleed 2/2 Crohn's Flare - s/p 1 unit pRBCs - CT A/P (08/03): segmental circumferential mucal thickening in proximal small bowel and mild distal descending colon and sigmoid colon. May represent acute, infectious, or inflammatory etiology. Severe diffuse anasarca. - Bleeding scan (08/05): no evidence of active GI bleed - ICU consulted. Recs appreciated. - s/p flex sig and endoscopy 08/08 * negative EGD, no active upper GI bleeding, no gastric ulcers * Flex sig to 40cm with Crohn Disease score of 14, ulcerations - GI consulted. Recs appreciated. - continue rowasa enemas, pentasa 500 mg PO QID and flagyl 500 mg IV Q8 -f/u IBD series Delirium 2/2 New Watershed Stroke - Ativan .25 mg q6 prn for agitation - Cardio does not recommend PATRICK - PT recommends acute rehab - Brain MRI (07/30): multiple small cortical and subcortical infarcts in both hemispheres (R>L). Possibly due to hypotensive watershed infarct. - Head/Neck CTA (07/30): negative - Echo (07/31): EF 62%. Mod-severe aortic regurgitation. Mild pulmonary HTN. - Neuro recs appreciated - Psychiatry recs appreciated Afib with RVR - rate controlled - Eliquis held d/t hematochezia - Cardizem PO TID and Lopressor 5mg IVP prn - Cardio recs appreciated Fever with septic workup - resolved - BCx, Ucx negative - patient afebrile, no leukocytosis Suicidal intent - resolved - Psych recs appreciated - 1:1 precautions discontinued; cleared by psych NSTEMI - elevated troponins 2/2 stroke - No cath at this time. Continue medical management. - trops 0.18 -> .14 -secondary to stroke Hx of HTN - Recent SBP trending in the 90s - BP meds held at this time Hx of DM II - continue to monitor - ISS PPx, Diet, Disposition -DVT: SCDs, no anticoagulation at this time -GI: protonix -PT on board: acute rehab recs -Dispo: patient is DNR/DNI, palliative on board. Patient is still pending an accepting facility. EARC was done and approved for 10 days. Good until 08/[address] Anthony White PGY-1
[2018-08-12 10:38] LABS: GRAN # 7.9 (1.4-6.5); GRAN % 90.9 % (50.0-68.0); HEMOGLOBIN 8.8 g/dL (12.0-16.0); LYMPH # 0.4 (1.2-3.4); LYMPH % 5.1 % (22.0-35.0); MEAN CELL VOLUME 88.4 fl (80.0-105.0); MEAN CORPUSCULAR HEMOGLOBIN 29.9 pg (25.0-35.0); MEAN CORPUSCULAR HGB CONC 33.8 g/dl (31.0-37.0); MEAN PLATELET VOLUME 9.6 fl (7.0-11.0); MONO # 0.4 (0.1-0.6); RBC 2.94 10^6/uL (3.5-6.1); RED CELL DISTRIBUTION WIDTH 20.8 % (11.5-14.5); WHITE BLOOD COUNT 8.7 10^3/uL (4.5-11.0)
[2018-08-12 10:42] LABS: VENOUS BLOOD GAS PO2 31 mm/Hg (30-55); VENOUS BLOOD PH 7.25 (7.32-7.43)
[2018-08-12 10:49] LABS: ALB/GLOB RATIO 0.6 (1.1-1.8); ALBUMIN 1.4 g/dL (3.0-4.8); ALT/SGPT 60 U/L (7-56); AST/SGOT 31 U/L (14-36); BLOOD UREA NITROGEN 23 mg/dL (7-21); CALCIUM 8.3 mg/dL (8.4-10.5); GFR NON-AFRICAN AMERICAN 43
[2018-08-12 11:01] LABS: TROPONIN I < 0.01 ng/mL
--- NOTE | 2018-08-12 12:09 | CP.PCM.CON ---
History of Present Illness - History of Present Illness History of Present Illness: General Surgery Dr. Adams Pt altered and poor historian. History taken from EMR. 77 y/o F w/ PMHx of HTN, DM2, COPD, Crohn's disease was BIBA on 07/28 for acute AMS. Per family, pt became altered w/ hallucinations and paranoid delusions w/in 24hrs of arrival. CTH w/ no acute changes. Pt found to have elevated troponins. Hep gtt started and neuro consulted for AMS. MRI ordered and revealed multiple b/l ischemic CVAs. Pt stared on ASA/plavix. Pt developed BRBPR on 08/02. Pt underwent CTAP which showed thickening of descending and sigmoid colon. Bleeding scan performed on 08/06 and was negative for active bleeding. Pt continued to have BRBPR and was transfused 2units pRBC. Pt underwent EGD/flex sig on 08/08; EGD was normal, however, flex sig showed acute Crohn's flair w/ ulcerated mucosa. During admission, pt started on Eliquis for paroxysmal Afib. Eliquis was held on 08/07 after start of GIB. Pt restarted on 2.5mg Eliquis last evening. Since this AM, pt has had multiple episodes clotted hematochezia/melena. Pt transfused additional 2pRBC. Pt AMS, nonverbal, ROS unobtainable. PMHx: paroxysmal Afib, HTN, DM2, OA, COPD, Crohn's Meds: reviewed in chart NKDA PSHx: L TKR SHx: denies tobacco, EtOH, drug use FHx: noncontributory Review of Systems - Review of Systems Systems not reviewed;Unavailable: Altered Mental Status Past Patient History - Infectious Disease Hx of Infectious Diseases: None - Tetanus Immunizations Tetanus Immunization: Unknown - Past Social History Smoking Status: Former Smoker - CARDIAC Hx Hypertension: Yes - PULMONARY Hx Chronic Obstructive Pulmonary Disease (COPD): Yes - NEUROLOGICAL Hx Neurological Disorder: Yes (paranoid, delusional) - HEENT Hx HEENT Problems: No - RENAL Hx Chronic Kidney Disease: No - ENDOCRINE/METABOLIC Hx Diabetes Mellitus Type 2: Yes - HEMATOLOGICAL/ONCOLOGICAL Hx Blood Transfusions: No Hx Blood Transfusion Reaction: No - INTEGUMENTARY Hx Dermatological Problems: No - MUSCULOSKELETAL/RHEUMATOLOGICAL Hx Arthritis: Yes - GASTROINTESTINAL Hx Gastrointestinal Disorders: No - GENITOURINARY/GYNECOLOGICAL Hx Genitourinary Disorders: No - PSYCHIATRIC Hx Psychophysiologic Disorder: Yes Hx Emotional Abuse: No Hx Paranoia: Yes (acute) Hx Physical Abuse: No - SURGICAL HISTORY Hx Surgeries: Yes - ANESTHESIA Hx Anesthesia Reactions: No Hx Malignant Hyperthermia: No Meds Allergies/Adverse Reactions: Allergies Allergy/AdvReac Type Severity Reaction Status Date / Time No Known Allergies Allergy Verified 02/12/14 12:07 - Medications Medications: Current Medications Acetaminophen (Tylenol 325mg Tab) 650 mg PO Q6H PRN PRN Reason: Pain, moderate (4-7) Last Admin: 08/10/18 21:32 Dose: 650 mg Albuterol/Ipratropium (Duoneb 3 Mg/0.5 Mg (3 Ml) Ud) 3 ml IH [id number] [facility] Last Admin: 08/12/18 07:31 Dose: 3 ml Apixaban (Eliquis) 2.5 mg PO BID [facility]; Protocol Last Admin: 08/11/18 17:17 Dose: 2.5 mg Aspirin (Aspirin Chewable) 81 mg PO DAILY [facility] Last Admin: 08/07/18 10:42 Dose: Not Given Atorvastatin Calcium (Lipitor) 40 mg PO DIN [facility] Last Admin: 08/11/18 17:17 Dose: 40 mg Cholecalciferol (Vitamin D) 2,000 intlu PO DAILY [facility] Last Admin: 08/12/18 09:51 Dose: 2,000 intlu Diltiazem HCl (Cardizem) 60 mg PO TID [facility] Last Admin: 08/12/18 09:52 Dose: Not Given Guaifenesin (Robitussin) 100 mg PO Q4H PRN PRN Reason: Cough Last Admin: 08/09/18 15:41 Dose: 100 mg Metronidazole (Flagyl) 500 mg in 100 mls @ 100 mls/hr IVPB Q8 [facility]; Protocol Last Admin: 08/12/18 06:50 Dose: 100 mls/hr Cefepime HCl (Maxipime 1gm) 1 gm in 100 mls @ 100 mls/hr IVPB Q12 [facility]; Protocol Last Admin: 08/12/18 09:52 Dose: 100 mls/hr Insulin Human Regular (Humulin R Med) 0 units SC ACHS [facility]; Protocol Last Admin: 08/12/18 11:30 Dose: Not Given Lorazepam (Ativan) 0.25 mg PO Q6 PRN; 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 Reason: Anxiety Last Admin: 08/09/18 21:48 Dose: 0.25 mg Mesalamine (Pentasa) 500 mg PO QID [facility] Last Admin: 08/12/18 09:51 Dose: 500 mg Midodrine (Proamatine) 5 mg PO TID [facility] Last Admin: 08/12/18 09:52 Dose: 5 mg Ondansetron HCl (Zofran Inj) 4 mg IVP Q4H PRN PRN Reason: Nausea/Vomiting Last Admin: 08/06/18 06:39 Dose: 4 mg Pantoprazole Sodium (Protonix Ec Tab) 40 mg PO 0600 [facility] Last Admin: 08/12/18 07:56 Dose: 40 mg Prednisone (Prednisone Tab) 20 mg PO BID [facility] Last Admin: 08/12/18 09:52 Dose: 20 mg Quetiapine Fumarate (Seroquel) 12.5 mg PO HS PRN; 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 Reason: Agitation Last Admin: 08/11/18 20:11 Dose: 12.5 mg Physical Exam - Constitutional Appears: Non-toxic, No Acute Distress, Chronically Ill - Head Exam Head Exam: NORMAL INSPECTION - Eye Exam Eye Exam: Normal appearance - ENT Exam ENT Exam: Mucous Membranes Moist - Respiratory Exam Respiratory Exam: NORMAL BREATHING PATTERN. absent: Accessory Muscle Use, Respiratory Distress - Cardiovascular Exam Cardiovascular Exam: absent: Bradycardia, Tachycardia - GI/Abdominal Exam GI & Abdominal Exam: Guarding (voluntary), Hernia (umbilical), Soft. absent: Distended, Firm, Rebound, Tenderness - Exam Additional comments: torrez in place, hematuria - Extremities Exam Extremities exam: Positive for: normal inspection - Neurological Exam Neurological exam: Altered - Psychiatric Exam Psychiatric exam: Normal Affect, Normal Mood - Skin Skin Exam: Dry, Intact, Normal Color, Warm Results - Vital Signs Recent Vital Signs: Last Vital Signs Temp 98.8 F 08/12/18 07:03 Pulse 85 08/12/18 10:00 Resp 18 08/12/18 08:00 BP 89/59 L 08/12/18 09:52 Pulse Ox 100 08/12/18 08:00 - Labs Result Diagrams: 08/12/18 10:30 08/12/18 10:30 Labs: Laboratory Results - last 24 hr 08/11/18 08/11/18 08/12/18 16:01 23:37 05:45 WBC 8.9 D RBC 3.32 L Hgb 9.8 L Hct 29.8 L MCV 89.8 MCH 29.5 MCHC 32.9 RDW 21.0 H Plt Count 122 MPV 10.3 Gran % 90.6 H Lymph % (Auto) 5.8 L [place] % (Auto) 3.6 Eos % (Auto) 0.0 L Baso % (Auto) 0.0 Gran # 8.03 H Lymph # (Auto) 0.5 L [place] # (Auto) 0.3 Eos # (Auto) 0.0 Baso # (Auto) 0.00 Neutrophils % (Manual) 90 H Band Neutrophils % 4 H Lymphocytes % (Manual) 5 L Monocytes % (Manual) 1 Toxic Granulation Slight Platelet Evaluation Normal Anisocytosis (manual) Slight Tear Drop Cells Slight Acanthocytes (Spur) Slight pO2 VBG pH VBG pCO2 VBG HCO3 VBG Total CO2 VBG O2 Sat (Calc) VBG Base Excess VBG Potassium Glucose Lactate FiO2 Sodium Potassium Chloride Carbon Dioxide Anion Gap BUN Creatinine Est GFR ( Amer) Est GFR (Non-Af Amer) POC Glucose (mg/dL) 131 H 108 Random Glucose Calcium Phosphorus Magnesium Total Bilirubin GGT AST ALT Alkaline Phosphatase Troponin I Total Protein Albumin Globulin Albumin/Globulin Ratio Venous Blood Potassium Blood Type Antibody Screen Crossmatch BBK History Checked 08/12/18 08/12/18 08/12/18 05:45 06:30 10:30 WBC 8.7 RBC 2.94 L Hgb 8.8 L Hct 26.0 L MCV 88.4 MCH 29.9 MCHC 33.8 RDW 20.8 H Plt Count 104 L MPV 9.6 Gran % 90.9 H Lymph % (Auto) 5.1 L [place] % (Auto) 4.0 Eos % (Auto) 0.0 L Baso % (Auto) 0.0 Gran # 7.90 H Lymph # (Auto) 0.4 L [place] # (Auto) 0.4 Eos # (Auto) 0.0 Baso # (Auto) 0.00 Neutrophils % (Manual) Band Neutrophils % Lymphocytes % (Manual) Monocytes % (Manual) Toxic Granulation Platelet Evaluation Anisocytosis (manual) Tear Drop Cells Acanthocytes (Spur) pO2 VBG pH VBG pCO2 VBG HCO3 VBG Total CO2 VBG O2 Sat (Calc) VBG Base Excess VBG Potassium Glucose Lactate FiO2 Sodium 132 Potassium 5.0 Chloride 112 H Carbon Dioxide 15 L Anion Gap 10 BUN 24 H Creatinine 1.1 Est GFR ( Amer) 58 Est GFR (Non-Af Amer) 48 POC Glucose (mg/dL) Random Glucose 103 Calcium 8.4 Phosphorus Magnesium Total Bilirubin 0.7 GGT 264 H AST 32 ALT 64 H Alkaline Phosphatase 410 H D Troponin I Total Protein 4.0 L Albumin 1.6 L Globulin 2.5 Albumin/Globulin Ratio 0.6 L Venous Blood Potassium Blood Type Antibody Screen Crossmatch BBK History Checked 08/12/18 08/12/18 08/12/18 10:30 10:30 10:30 WBC RBC Hgb Hct MCV MCH MCHC RDW Plt Count MPV Gran % Lymph % (Auto) [place] % (Auto) Eos % (Auto) Baso % (Auto) Gran # Lymph # (Auto) [place] # (Auto) Eos # (Auto) Baso # (Auto) Neutrophils % (Manual) Band Neutrophils % Lymphocytes % (Manual) Monocytes % (Manual) Toxic Granulation Platelet Evaluation Anisocytosis (manual) Tear Drop Cells Acanthocytes (Spur) pO2 31 VBG pH 7.25 L VBG pCO2 46.0 VBG HCO3 20.2 L VBG Total CO2 21.6 L VBG O2 Sat (Calc) 60.3 VBG Base Excess -7.0 L VBG Potassium 4.7 Glucose 106 H Lactate 2.7 H FiO2 21.0 Sodium 133.0 134 Potassium 4.7 Chloride 108.0 H 112 H Carbon Dioxide 18 L Anion Gap 8 L BUN 23 H Creatinine 1.2 Est GFR ( Amer) 53 Est GFR (Non-Af Amer) 43 POC Glucose (mg/dL) Random Glucose 101 Calcium 8.3 L Phosphorus 2.5 Magnesium 1.9 Total Bilirubin 0.5 GGT AST 31 ALT 60 H Alkaline Phosphatase 389 H Troponin I < 0.01 D Total Protein 3.8 L Albumin 1.4 L Globulin 2.3 Albumin/Globulin Ratio 0.6 L Venous Blood Potassium 4.7 Blood Type A POSITIVE Antibody Screen Negative Crossmatch See Detail BBK History Checked Patient has bt 08/12/18 11:17 WBC RBC Hgb Hct MCV MCH MCHC RDW Plt Count MPV Gran % Lymph % (Auto) [place] % (Auto) Eos % (Auto) Baso % (Auto) Gran # Lymph # (Auto) [place] # (Auto) Eos # (Auto) Baso # (Auto) Neutrophils % (Manual) Band Neutrophils % Lymphocytes % (Manual) Monocytes % (Manual) Toxic Granulation Platelet Evaluation Anisocytosis (manual) Tear Drop Cells Acanthocytes (Spur) pO2 VBG pH VBG pCO2 VBG HCO3 VBG Total CO2 VBG O2 Sat (Calc) VBG Base Excess VBG Potassium Glucose Lactate FiO2 Sodium Potassium Chloride Carbon Dioxide Anion Gap BUN Creatinine Est GFR ( Amer) Est GFR (Non-Af Amer) POC Glucose (mg/dL) 102 Random Glucose Calcium Phosphorus Magnesium Total Bilirubin GGT AST ALT Alkaline Phosphatase Troponin I Total Protein Albumin Globulin Albumin/Globulin Ratio Venous Blood Potassium Blood Type Antibody Screen Crossmatch BBK History Checked - Imaging and Cardiology CT scan - abdomen Status: Report reviewed by me Assessment & Plan - Assessment and Plan (Free Text) Assessment: 77 y/o F w/ acute Crohn's flair and GI bleeding 2/ Eliquis administration Plan: - NPO/IVF - NGT placement, on LCS, flush QShift - monitor bowel fxn - H/H Q4 until stable then Q6/Q12 - transfuse for Hgb <7 - repeat bleeding scan vs angio if continued bleeding - f/u GI recs --> possible re-scope? - hold anticaogulants and antiplatelet Tx - No surgical intervention at this time. - will continue to follow Pt discussed w/ Dr. Bryan Prado DO PGY3
--- NOTE | 2018-08-12 12:15 | PN ---
DATE: 08/12/2018 SUBJECTIVE: The patient is seen and examined at bedside. Her mental status is at baseline. She had an episode of large bloody, bowel movement which coincided with SVT episode and temporary drop of blood pressure. Those above responded to 1 liter normal saline wide open. Dr. Santiago notified and surgical consult request was placed. Stat labs as well as 2 units of blood were ordered. OBJECTIVE: VITAL SIGNS: At present time, blood pressure 104/55 with mean arterial pressures 77, heart rate 92, oxygen saturation 100%, and respiratory rate 18. ENT: Head and neck atraumatic. LUNGS: Clear to auscultation bilaterally. HEART: Regular rate with S1, S2 normal. ABDOMEN: Soft, nontender, nondistended. MUSCULOSKELETAL: 1+ bilateral pedal and ankle edema. NEUROLOGIC: The patient moves all extremities spontaneously. SKIN: Moist. PSYCH: Patient is awake and alert. LABORATORY DATA: WBC 8.9, hemoglobin 9.8, platelet count 122,000. Sodium 132, potassium 5, chloride 112, carbon dioxide 15, BUN 24, creatinine 1.1, glucose 103, AST 32, ALT 64, total bilirubin 0.7, GGT 264. INR 2.41. MEDICATIONS: Tylenol p.r.n., DuoNeb every 6 hours, Eliquis on hold, aspirin on hold, Lipitor, cefepime and vitamin D, Cardizem, Flagyl, Robitussin p.r.n., regular insulin sliding scale medium protocol, Ativan p.r.n. Pentasa, midodrine, Zofran p.r.n., Protonix, prednisone 20 mg p.o. b.i.d., Seroquel. ASSESSMENT AND PLAN: This 77-year-old lady who initially presented lower GI bleeding, while on eliquis for afib, complicated by hemorrhagic shock with cardiac supply demand mismatch ischemia and watershed brain infarct. patient had upper endoscopy which was unrevealing, however flexible sigmoidoscopy showed bleeding ulcer in the setting of ulcerative colitis. after bleeding was stopped and hb level stabilized, eliquis was restarted, but today patient developed another epsiode of symptomatic lower gi bleeding with afib/rvr, responding to 1L NS and 2 units of PRBC. subsequent cbc revealed adequate response to 2 PRBC with Hb shooting up to 13.2 from 8.9. INR was elevated, most likely due to apixaban presence, however as patient became hemodynamically stable, and bleeding appear to be isolated, we will not reverse apixaban aggressively, just hold it and observe. If bleeding continues will get forest aide on board, unless will need emergent apixaban reversal. patient is able to protect airways ccm time 40 min Mukul Manning MD [facility]
--- NOTE | 2018-08-12 12:38 | CP.PCM.PN ---
<Teresa Lock - Last Filed: 08/12/18 13:07> Subjective - Date & Time of Evaluation Date of Evaluation: 08/12/18 Time of Evaluation: 12:38 - Subjective Subjective: Gastroenterology Fellow/PGY6 Progress Note Patient had large bloody bowel movement with clots this morning. Started on Eliquis 2.5mg BID yesterday evening. A 12-point review of systems negative except for as above. Objective - Vital Signs/Intake and Output Vital Signs (last 24 hours): Temp Pulse Resp BP Pulse Ox 98.8 F 90 18 89/59 L 100 08/12/18 07:03 08/12/18 12:00 08/12/18 08:00 08/12/18 09:52 08/12/18 08:00 Intake and Output: 08/12/18 08/12/18 06:59 18:59 Intake Total 1360 Output Total 250 Balance 1110 - Medications Medications: Current Medications Acetaminophen (Tylenol 325mg Tab) 650 mg PO Q6H PRN PRN Reason: Pain, moderate (4-7) Last Admin: 08/10/18 21:32 Dose: 650 mg Albuterol/Ipratropium (Duoneb 3 Mg/0.5 Mg (3 Ml) Ud) 3 ml [facility] [id number] [facility] Last Admin: 08/12/18 07:31 Dose: 3 ml Apixaban (Eliquis) 2.5 mg PO BID [facility]; Protocol Last Admin: 08/11/18 17:17 Dose: 2.5 mg Aspirin (Aspirin Chewable) 81 mg PO DAILY [facility] Last Admin: 08/07/18 10:42 Dose: Not Given Atorvastatin Calcium (Lipitor) 40 mg PO DIN [facility] Last Admin: 08/11/18 17:17 Dose: 40 mg Cholecalciferol (Vitamin D) 2,000 intlu PO DAILY [facility] Last Admin: 08/12/18 09:51 Dose: 2,000 intlu Diltiazem HCl (Cardizem) 60 mg PO TID [facility] Last Admin: 08/12/18 09:52 Dose: Not Given Guaifenesin (Robitussin) 100 mg PO Q4H PRN PRN Reason: Cough Last Admin: 08/09/18 15:41 Dose: 100 mg Metronidazole (Flagyl) 500 mg in 100 mls @ 100 mls/hr IVPB Q8 [facility]; Protocol Last Admin: 08/12/18 06:50 Dose: 100 mls/hr Cefepime HCl (Maxipime 1gm) 1 gm in 100 mls @ 100 mls/hr IVPB Q12 [facility]; Protocol Last Admin: 08/12/18 09:52 Dose: 100 mls/hr Insulin Human Regular (Humulin R Med) 0 units SC ACHS [facility]; Protocol Last Admin: 08/12/18 11:30 Dose: Not Given Lorazepam (Ativan) 0.25 mg PO Q6 PRN; 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 Reason: Anxiety Last Admin: 08/09/18 21:48 Dose: 0.25 mg Mesalamine (Pentasa) 500 mg PO QID [facility] Last Admin: 08/12/18 09:51 Dose: 500 mg Midodrine (Proamatine) 5 mg PO TID [facility] Last Admin: 08/12/18 09:52 Dose: 5 mg Ondansetron HCl (Zofran Inj) 4 mg IVP Q4H PRN PRN Reason: Nausea/Vomiting Last Admin: 08/06/18 06:39 Dose: 4 mg Pantoprazole Sodium (Protonix Ec Tab) 40 mg PO 0600 [facility] Last Admin: 08/12/18 07:56 Dose: 40 mg Prednisone (Prednisone Tab) 20 mg PO BID [facility] Last Admin: 08/12/18 09:52 Dose: 20 mg Quetiapine Fumarate (Seroquel) 12.5 mg PO HS PRN; 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 Reason: Agitation Last Admin: 08/11/18 20:11 Dose: 12.5 mg - Labs Labs: 08/12/18 10:30 08/12/18 10:30 PT 28.2 SECONDS (9.4-12.5) H 08/07/18 09:00 INR 2.41 08/07/18 09:00 APTT 36.0 Seconds (25.1-36.5) 08/01/18 05:30 - Constitutional Appears: Non-toxic, No Acute Distress - Head Exam Head Exam: ATRAUMATIC, NORMOCEPHALIC - Eye Exam Eye Exam: EOMI, PERRL. absent: Scleral icterus Pupil Exam: PERRL. absent: Miosis, Mydriatic - ENT Exam ENT Exam: Mucous Membranes Moist, Normal Oropharynx - Neck Exam Neck Exam: Full ROM, Normal Inspection - Respiratory Exam Respiratory Exam: Clear to Ausculation Bilateral. absent: Rales, Rhonchi, Wheezes - Cardiovascular Exam Cardiovascular Exam: RRR, +S1, +S2. absent: Gallop, Rubs - GI/Abdominal Exam GI & Abdominal Exam: Soft, Normal Bowel Sounds. absent: Distended, Firm, Guarding, Rigid, Tenderness, Organomegaly, Rebound - Extremities Exam Extremities Exam: Normal Inspection, Pedal Edema - Neurological Exam Neurological Exam: Alert, Awake - Psychiatric Exam Psychiatric exam: Normal Affect, Normal Mood - Skin Skin Exam: Dry, Intact, Normal Color, Warm Assessment and Plan - Assessment and Plan (Free Text) Assessment: 77 year old female with PMH of HTN, DM, osteoarthritis, COPD and suspected Crohn's Disease 2014 (not currently on maintenance therapy) presenting with altered mental status. Active treatment of recurrent lower GI bleed requiring transfusion with flexible sigmoidoscopy to 40cm showing active bleeding from ulcerated mucosa- likely 2/2 Crohn's disease flare. 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 Plan: -rectal bleeding likely 2/2 to restarting Eliquis in setting of extensively ulcerated colonic mucosa to 40cm on flexible sigmoidoscopy -can not rule out additional bleeding source of remaining colon -recommend GI bleeding scan if persistent rectal bleeding -hold Eliquis, recommend avoid NOACs -blood transfusion ordered, transfuse as needed -surgery consulted -trend H/H -NPO -on Prednisone 20mg BID day 4, Rowasa enema, and Mesalamine 500mg QID -ID managing -on cefepime and flagyl day 9 of 10-14 days -elevated ALP likely secondary to cholestasis in setting of cefepime use -avoid hepatotoxic medications -follow up neurology recommendations -will follow clinical course <Harper Santiago V - Last Filed: 08/12/18 23:45> Objective - Vital Signs/Intake and Output Vital Signs (last 24 hours): Temp Pulse Resp BP Pulse Ox 97.8 F 78 17 124/60 97 08/12/18 12:00 08/12/18 22:10 08/12/18 22:10 08/12/18 22:00 08/12/18 22:10 Intake and Output: 08/12/18 08/13/18 18:59 06:59 Intake Total 1989 Output Total 220 Balance 1770 - Medications Medications: Current Medications Acetaminophen (Tylenol 325mg Tab) 650 mg PO Q6H PRN PRN Reason: Pain, moderate (4-7) Last Admin: 08/12/18 20:46 Dose: 650 mg Albuterol/Ipratropium (Duoneb 3 Mg/0.5 Mg (3 Ml) Ud) 3 ml [facility] [id number] [facility] Last Admin: 08/12/18 20:10 Dose: 3 ml Atorvastatin Calcium (Lipitor) 40 mg PO DIN [facility] Last Admin: 08/12/18 17:23 Dose: 40 mg Cholecalciferol (Vitamin D) 2,000 intlu PO DAILY [facility] Last Admin: 08/12/18 09:51 Dose: 2,000 intlu Diltiazem HCl (Cardizem) 60 mg PO TID [facility] Last Admin: 08/12/18 17:23 Dose: Not Given Guaifenesin (Robitussin) 100 mg PO Q4H PRN PRN Reason: Cough Last Admin: 08/09/18 15:41 Dose: 100 mg Metronidazole (Flagyl) 500 mg in 100 mls @ 100 mls/hr IVPB Q8 [facility]; Protocol Last Admin: 08/12/18 21:03 Dose: 100 mls/hr Cefepime HCl (Maxipime 1gm) 1 gm in 100 mls @ 100 mls/hr IVPB Q12 [facility]; Protocol Last Admin: 08/12/18 21:04 Dose: 100 mls/hr Insulin Human Regular (Humulin R Med) 0 units SC ACHS [facility]; Protocol Last Admin: 08/12/18 21:54 Dose: Not Given Lorazepam (Ativan) 0.25 mg PO Q6 PRN; 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 Reason: Anxiety Last Admin: 08/09/18 21:48 Dose: 0.25 mg Mesalamine (Pentasa) 500 mg PO QID [facility] Last Admin: 08/12/18 21:06 Dose: 500 mg Midodrine (Proamatine) 5 mg PO TID [facility] Last Admin: 08/12/18 17:23 Dose: 5 mg Ondansetron HCl (Zofran Inj) 4 mg IVP Q4H PRN PRN Reason: Nausea/Vomiting Last Admin: 08/06/18 06:39 Dose: 4 mg Pantoprazole Sodium (Protonix Ec Tab) 40 mg PO 0600 [facility] Last Admin: 08/12/18 07:56 Dose: 40 mg Prednisone (Prednisone Tab) 20 mg PO BID [facility] Last Admin: 08/12/18 17:23 Dose: 20 mg Quetiapine Fumarate (Seroquel) 12.5 mg PO HS PRN; 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 Reason: Agitation Last Admin: 08/12/18 23:10 Dose: 12.5 mg - Labs Labs: 08/12/18 18:25 08/12/18 10:30 PT 28.2 SECONDS (9.4-12.5) H 08/07/18 09:00 INR 2.41 08/07/18 09:00 APTT 36.0 Seconds (25.1-36.5) 08/01/18 05:30 Attending/Attestation - Attestation I have personally seen and examined this patient.: Yes I have fully participated in the care of the patient.: Yes I have reviewed all pertinent clinical information, including history, physical exam and plan: Yes Notes (Text): This is an addendum to GI progress report dictated by the GI Fellow.The patient was seen and examined earlier. Medical records, lab studies, imagings were reviewed. Last 24 hours events reviewed. Agreed with the above treatment plan as outlined in GI Fellow 's notes with the addition of the following
--- NOTE | 2018-08-12 13:37 | CP.CCUPN ---
<David Sun - Last Filed: 08/12/18 13:56> CCU Subjective - Physician Review Subjective (Free Text): David Sun, PGY1 ICU Progress Note for Dr. Manning Patient was seen and examined at bedside this morning. She is AAOx2 (person and place). Patient is awake, follows commands, moves all extremities. She does not provide an adequate ROS due to waxing/waning mental status. Afebrile overnight. Patient was hypotensive this morning with a BP 89/59. She was also noted to be in afib with RVR during time of interview. As per nursing staff, patient had large rectal bleed overnight. She also had an episode of agitation in which she was given seroquel. CCU Objective - Vital Signs / Intake & Output Vital Signs (Last 4 hours): Vital Signs Temp Pulse Resp BP Pulse Ox 08/12/18 12:30 88 21 96/59 L 99 08/12/18 12:20 89 17 99 08/12/18 12:10 90 18 100 08/12/18 12:00 97.8 F 90 18 97/57 L 100 08/12/18 11:50 88 17 100 08/12/18 11:40 92 H 20 99 08/12/18 11:30 96 H 18 97/56 L 100 08/12/18 11:20 91 H 16 98 08/12/18 11:10 92 H 22 100 08/12/18 11:00 91 H 20 91/53 L 100 08/12/18 10:50 88 16 08/12/18 10:40 92 H 19 83 L 08/12/18 10:34 87 15 08/12/18 10:33 88 17 08/12/18 10:32 90 18 08/12/18 10:31 90 17 08/12/18 10:30 92/48 L 08/12/18 10:29 88 17 08/12/18 10:28 91 H 18 08/12/18 10:27 88 17 08/12/18 10:26 87 18 08/12/18 10:25 88 19 08/12/18 10:24 90 17 08/12/18 10:23 89 16 08/12/18 10:20 85 16 72 L 08/12/18 10:10 85 17 73 L 08/12/18 10:01 88 21 104/55 L 72 L 08/12/18 10:00 92 H 18 75 L 08/12/18 09:52 121 H 89/59 L 08/12/18 09:50 118 H 16 69 L 08/12/18 09:40 126 H 16 87 L Intake and Output (Last 8hrs): Intake & Output 08/11/18 08/12/18 08/12/18 22:59 06:59 14:59 Intake Total 440 1360 Output Total 180 250 Balance 260 1110 Intake: IV 200 1200 Left Forearm 200 Right Upper arm 1200 Oral 240 160 Output: Urine 180 250 Urethral (Lugo) 180 250 Other: # Bowel Movements 0 0 - Physical Exam Head: Positive for: Atraumatic, Normocephalic Pupils: Positive for: PERRL Extroacular Muscles: Positive for: EOMI Mouth: Positive for: Moist Mucous Membranes Neck: Positive for: Normal Range of Motion. Negative for: Meningeal Signs Respiratory/Chest: Positive for: Clear to Auscultation. Negative for: Respiratory Distress, Wheezes, Rales, Rhonchi Cardiovascular: Positive for: Regular Rate and Rhythm, Normal S1, S2 Abdomen: Positive for: Normal Bowel Sounds. Negative for: Distention, Peritoneal Signs, Rebound, Mass/Organomegaly Genitourinary/Pelvic Exam: Positive for: Other (Lugo in place. ) Lower Extremity: Positive for: Edema (Patient has +2 pitting edema bilateral lower extremities ), NORMAL PULSES. Negative for: CALF TENDERNESS, Cyanosis Skin: Positive for: Warm, Dry, Normal Color Psychiatric: Positive for: Alert (AAOx2). Negative for: Oriented x 3, Normal Insight, Normal Concentration - Medications Active Medications: Active Medications Generic Name Dose Route Start Last Admin Trade Name Freq PRN Reason Stop Dose Admin Acetaminophen 650 mg 08/09/18 21:57 08/10/18 21:32 Tylenol 325mg Tab PO 650 mg Q6H PRN Administration Pain, moderate (4-7) Albuterol/Ipratropium 3 ml 08/09/18 15:15 08/12/18 13:16 Duoneb 3 Mg/0.5 Mg (3 Ml) Ud IH 3 ml [id number] ANGELES Administration Apixaban 2.5 mg 08/11/18 18:00 08/11/18 17:17 Eliquis PO 2.5 mg BID ANGELES Administration Protocol Aspirin 81 mg 08/06/18 10:00 08/07/18 10:42 Aspirin Chewable PO Not Given DAILY [facility] Atorvastatin Calcium 40 mg 07/30/18 17:00 08/11/18 17:17 Lipitor PO 40 mg DIN ANGELES Administration Cholecalciferol 2,000 intlu 07/29/18 10:00 08/12/18 09:51 Vitamin D PO 2,000 intlu DAILY ANGELES Administration Diltiazem HCl 60 mg 08/05/18 14:00 08/12/18 09:52 Cardizem PO Not Given TID [facility] Guaifenesin 100 mg 08/09/18 15:30 08/09/18 15:41 Robitussin PO 100 mg Q4H PRN Administration Cough Metronidazole 500 mg in 100 mls @ 100 mls/hr 08/04/18 14:30 08/12/18 06:50 Flagyl IVPB 100 mls/hr Q8 [facility] Administration Protocol Cefepime HCl 1 gm in 100 mls @ 100 mls/hr 08/06/18 10:00 08/12/18 09:52 Maxipime 1gm IVPB 100 mls/hr Q12 [facility] Administration Protocol Insulin Human Regular 0 units 07/28/18 22:00 08/12/18 11:30 Humulin R Med SC Not Given ACHS [facility] Protocol Lorazepam 0.25 mg 08/03/18 10:23 08/09/18 21:48 Ativan PO 0.25 mg Q6 PRN Administration Anxiety Protocol Mesalamine 500 mg 08/05/18 10:00 08/12/18 09:51 Pentasa PO 500 mg QID [facility] Administration Midodrine 5 mg 08/11/18 14:00 08/12/18 09:52 Proamatine PO 5 mg TID [facility] Administration Ondansetron HCl 4 mg 08/04/18 12:59 08/06/18 06:39 Zofran Inj IVP 4 mg Q4H PRN Administration Nausea/Vomiting Pantoprazole Sodium 40 mg 07/29/18 06:00 08/12/18 07:56 Protonix Ec Tab PO 40 mg 0600 ANGELES Administration Prednisone 20 mg 08/09/18 18:00 08/12/18 09:52 Prednisone Tab PO 20 mg BID [facility] Administration Quetiapine Fumarate 12.5 mg 08/04/18 12:46 08/11/18 20:11 Seroquel PO 12.5 mg HS PRN Administration Agitation Protocol - Patient Studies Lab Studies: Lab Studies 08/12/18 08/12/18 08/12/18 Range/Units 11:17 10:30 10:30 WBC (4.5-11.0) 10^3/uL RBC (3.5-6.1) 10^6/uL Hgb (12.0-16.0) g/dL Hct (36.0-48.0) % MCV (80.0-105.0) fl MCH (25.0-35.0) pg MCHC (31.0-37.0) g/dl RDW (11.5-14.5) % Plt Count (120.0-450.0) 10^3/uL MPV (7.0-11.0) fl Gran % (50.0-68.0) % Lymph % (Auto) (22.0-35.0) % Barber % (Auto) (1.0-6.0) % Eos % (Auto) (1.5-5.0) % Baso % (Auto) (0.0-3.0) % Gran # (1.4-6.5) Lymph # (Auto) (1.2-3.4) Barber # (Auto) (0.1-0.6) Eos # (Auto) (0.0-0.7) Baso # (Auto) (0.0-2.0) K/mm3 Neutrophils % (Manual) (50.0-70.0) % Band Neutrophils % (0-2) % Lymphocytes % (Manual) (22.0-35.0) % Monocytes % (Manual) (1.0-6.0) % Toxic Granulation Platelet Evaluation (NORMAL) Anisocytosis (manual) Tear Drop Cells Acanthocytes (Spur) pO2 (30-55) mm/Hg VBG pH (7.32-7.43) VBG pCO2 (40-60) VBG HCO3 (21-28) mmol/l VBG Total CO2 (22-28) mmol.L VBG O2 Sat (Calc) (40-65) % VBG Base Excess (0.0-2.0) mmol/L VBG Potassium (3.6-5.2) mmol/L Glucose (65-105) mg/dl Lactate (0.7-2.1) mmol/L FiO2 % Sodium 134 (132-148) mmol/L Potassium 4.7 (3.6-5.0) mmol/L Chloride 112 H (98-107) mmol/L Carbon Dioxide 18 L (21-33) mmol/L Anion Gap 8 L (10-20) BUN 23 H (7-21) mg/dL Creatinine 1.2 (0.7-1.2) mg/dl Est GFR ( Amer) 53 Est GFR (Non-Af Amer) 43 POC Glucose (mg/dL) 102 (65-110) mg/dL Random Glucose 101 (70-110) mg/dL Calcium 8.3 L (8.4-10.5) mg/dL Phosphorus 2.5 (2.5-4.5) mg/dL Magnesium 1.9 (1.7-2.2) mg/dL Total Bilirubin 0.5 (0.2-1.3) mg/dL GGT (8-78) U/L AST 31 (14-36) U/L ALT 60 H (7-56) U/L Alkaline Phosphatase 389 H (38-126) U/L Troponin I < 0.01 D ng/mL Total Protein 3.8 L (5.8-8.3) g/dL Albumin 1.4 L (3.0-4.8) g/dL Globulin 2.3 gm/dL Albumin/Globulin Ratio 0.6 L (1.1-1.8) Venous Blood Potassium (3.6-5.2) mmol/L Blood Type A POSITIVE Antibody Screen Negative Crossmatch See Detail BBK History Checked Patient has bt 08/12/18 08/12/18 08/12/18 Range/Units 10:30 10:30 06:30 WBC 8.7 (4.5-11.0) 10^3/uL RBC 2.94 L (3.5-6.1) 10^6/uL Hgb 8.8 L (12.0-16.0) g/dL Hct 26.0 L (36.0-48.0) % MCV 88.4 (80.0-105.0) fl MCH 29.9 (25.0-35.0) pg MCHC 33.8 (31.0-37.0) g/dl RDW 20.8 H (11.5-14.5) % Plt Count 104 L (120.0-450.0) 10^3/uL MPV 9.6 (7.0-11.0) fl Gran % 90.9 H (50.0-68.0) % Lymph % (Auto) 5.1 L (22.0-35.0) % Barber % (Auto) 4.0 (1.0-6.0) % Eos % (Auto) 0.0 L (1.5-5.0) % Baso % (Auto) 0.0 (0.0-3.0) % Gran # 7.90 H (1.4-6.5) Lymph # (Auto) 0.4 L (1.2-3.4) Barber # (Auto) 0.4 (0.1-0.6) Eos # (Auto) 0.0 (0.0-0.7) Baso # (Auto) 0.00 (0.0-2.0) K/mm3 Neutrophils % (Manual) (50.0-70.0) % Band Neutrophils % (0-2) % Lymphocytes % (Manual) (22.0-35.0) % Monocytes % (Manual) (1.0-6.0) % Toxic Granulation Platelet Evaluation (NORMAL) Anisocytosis (manual) Tear Drop Cells Acanthocytes (Spur) pO2 31 (30-55) mm/Hg VBG pH 7.25 L (7.32-7.43) VBG pCO2 46.0 (40-60) VBG HCO3 20.2 L (21-28) mmol/l VBG Total CO2 21.6 L (22-28) mmol.L VBG O2 Sat (Calc) 60.3 (40-65) % VBG Base Excess -7.0 L (0.0-2.0) mmol/L VBG Potassium 4.7 (3.6-5.2) mmol/L Glucose 106 H (65-105) mg/dl Lactate 2.7 H (0.7-2.1) mmol/L FiO2 21.0 % Sodium 133.0 (132-148) mmol/L Potassium (3.6-5.0) mmol/L Chloride 108.0 H (98-107) mmol/L Carbon Dioxide (21-33) mmol/L Anion Gap (10-20) BUN (7-21) mg/dL Creatinine (0.7-1.2) mg/dl Est GFR ( Amer) Est GFR (Non-Af Amer) POC Glucose (mg/dL) (65-110) mg/dL Random Glucose (70-110) mg/dL Calcium (8.4-10.5) mg/dL Phosphorus (2.5-4.5) mg/dL Magnesium (1.7-2.2) mg/dL Total Bilirubin (0.2-1.3) mg/dL GGT 264 H (8-78) U/L AST (14-36) U/L ALT (7-56) U/L Alkaline Phosphatase (38-126) U/L Troponin I ng/mL Total Protein (5.8-8.3) g/dL Albumin (3.0-4.8) g/dL Globulin gm/dL Albumin/Globulin Ratio (1.1-1.8) Venous Blood Potassium 4.7 (3.6-5.2) mmol/L Blood Type Antibody Screen Crossmatch BBK History Checked 08/12/18 08/12/18 08/11/18 Range/Units 05:45 05:45 23:37 WBC 8.9 D (4.5-11.0) 10^3/uL RBC 3.32 L (3.5-6.1) 10^6/uL Hgb 9.8 L (12.0-16.0) g/dL Hct 29.8 L (36.0-48.0) % MCV 89.8 (80.0-105.0) fl MCH 29.5 (25.0-35.0) pg MCHC 32.9 (31.0-37.0) g/dl RDW 21.0 H (11.5-14.5) % Plt Count 122 (120.0-450.0) 10^3/uL MPV 10.3 (7.0-11.0) fl Gran % 90.6 H (50.0-68.0) % Lymph % (Auto) 5.8 L (22.0-35.0) % Barber % (Auto) 3.6 (1.0-6.0) % Eos % (Auto) 0.0 L (1.5-5.0) % Baso % (Auto) 0.0 (0.0-3.0) % Gran # 8.03 H (1.4-6.5) Lymph # (Auto) 0.5 L (1.2-3.4) Barber # (Auto) 0.3 (0.1-0.6) Eos # (Auto) 0.0 (0.0-0.7) Baso # (Auto) 0.00 (0.0-2.0) K/mm3 Neutrophils % (Manual) 90 H (50.0-70.0) % Band Neutrophils % 4 H (0-2) % Lymphocytes % (Manual) 5 L (22.0-35.0) % Monocytes % (Manual) 1 (1.0-6.0) % Toxic Granulation Slight Platelet Evaluation Normal (NORMAL) Anisocytosis (manual) Slight Tear Drop Cells Slight Acanthocytes (Spur) Slight pO2 (30-55) mm/Hg VBG pH (7.32-7.43) VBG pCO2 (40-60) VBG HCO3 (21-28) mmol/l VBG Total CO2 (22-28) mmol.L VBG O2 Sat (Calc) (40-65) % VBG Base Excess (0.0-2.0) mmol/L VBG Potassium (3.6-5.2) mmol/L Glucose (65-105) mg/dl Lactate (0.7-2.1) mmol/L FiO2 % Sodium 132 (132-148) mmol/L Potassium 5.0 (3.6-5.0) mmol/L Chloride 112 H (98-107) mmol/L Carbon Dioxide 15 L (21-33) mmol/L Anion Gap 10 (10-20) BUN 24 H (7-21) mg/dL Creatinine 1.1 (0.7-1.2) mg/dl Est GFR ( Amer) 58 Est GFR (Non-Af Amer) 48 POC Glucose (mg/dL) 108 (65-110) mg/dL Random Glucose 103 (70-110) mg/dL Calcium 8.4 (8.4-10.5) mg/dL Phosphorus (2.5-4.5) mg/dL Magnesium (1.7-2.2) mg/dL Total Bilirubin 0.7 (0.2-1.3) mg/dL GGT (8-78) U/L AST 32 (14-36) U/L ALT 64 H (7-56) U/L Alkaline Phosphatase 410 H D (38-126) U/L Troponin I ng/mL Total Protein 4.0 L (5.8-8.3) g/dL Albumin 1.6 L (3.0-4.8) g/dL Globulin 2.5 gm/dL Albumin/Globulin Ratio 0.6 L (1.1-1.8) Venous Blood Potassium (3.6-5.2) mmol/L Blood Type Antibody Screen Crossmatch BBK History Checked 08/11/18 Range/Units 16:01 WBC (4.5-11.0) 10^3/uL RBC (3.5-6.1) 10^6/uL Hgb (12.0-16.0) g/dL Hct (36.0-48.0) % MCV (80.0-105.0) fl MCH (25.0-35.0) pg MCHC (31.0-37.0) g/dl RDW (11.5-14.5) % Plt Count (120.0-450.0) 10^3/uL MPV (7.0-11.0) fl Gran % (50.0-68.0) % Lymph % (Auto) (22.0-35.0) % Barber % (Auto) (1.0-6.0) % Eos % (Auto) (1.5-5.0) % Baso % (Auto) (0.0-3.0) % Gran # (1.4-6.5) Lymph # (Auto) (1.2-3.4) Barber # (Auto) (0.1-0.6) Eos # (Auto) (0.0-0.7) Baso # (Auto) (0.0-2.0) K/mm3 Neutrophils % (Manual) (50.0-70.0) % Band Neutrophils % (0-2) % Lymphocytes % (Manual) (22.0-35.0) % Monocytes % (Manual) (1.0-6.0) % Toxic Granulation Platelet Evaluation (NORMAL) Anisocytosis (manual) Tear Drop Cells Acanthocytes (Spur) pO2 (30-55) mm/Hg VBG pH (7.32-7.43) VBG pCO2 (40-60) VBG HCO3 (21-28) mmol/l VBG Total CO2 (22-28) mmol.L VBG O2 Sat (Calc) (40-65) % VBG Base Excess (0.0-2.0) mmol/L VBG Potassium (3.6-5.2) mmol/L Glucose (65-105) mg/dl Lactate (0.7-2.1) mmol/L FiO2 % Sodium (132-148) mmol/L Potassium (3.6-5.0) mmol/L Chloride (98-107) mmol/L Carbon Dioxide (21-33) mmol/L Anion Gap (10-20) BUN (7-21) mg/dL Creatinine (0.7-1.2) mg/dl Est GFR ( Amer) Est GFR (Non-Af Amer) POC Glucose (mg/dL) 131 H (65-110) mg/dL Random Glucose (70-110) mg/dL Calcium (8.4-10.5) mg/dL Phosphorus (2.5-4.5) mg/dL Magnesium (1.7-2.2) mg/dL Total Bilirubin (0.2-1.3) mg/dL GGT (8-78) U/L AST (14-36) U/L ALT (7-56) U/L Alkaline Phosphatase (38-126) U/L Troponin I ng/mL Total Protein (5.8-8.3) g/dL Albumin (3.0-4.8) g/dL Globulin gm/dL Albumin/Globulin Ratio (1.1-1.8) Venous Blood Potassium (3.6-5.2) mmol/L Blood Type Antibody Screen Crossmatch BBK History Checked Laboratory Results - last 24 hr 08/11/18 08/11/18 08/12/18 16:01 23:37 05:45 WBC 8.9 D RBC 3.32 L Hgb 9.8 L Hct 29.8 L MCV 89.8 MCH 29.5 MCHC 32.9 RDW 21.0 H Plt Count 122 MPV 10.3 Gran % 90.6 H Lymph % (Auto) 5.8 L Barber % (Auto) 3.6 Eos % (Auto) 0.0 L Baso % (Auto) 0.0 Gran # 8.03 H Lymph # (Auto) 0.5 L Barber # (Auto) 0.3 Eos # (Auto) 0.0 Baso # (Auto) 0.00 Neutrophils % (Manual) 90 H Band Neutrophils % 4 H Lymphocytes % (Manual) 5 L Monocytes % (Manual) 1 Toxic Granulation Slight Platelet Evaluation Normal Anisocytosis (manual) Slight Tear Drop Cells Slight Acanthocytes (Spur) Slight pO2 VBG pH VBG pCO2 VBG HCO3 VBG Total CO2 VBG O2 Sat (Calc) VBG Base Excess VBG Potassium Glucose Lactate FiO2 Sodium Potassium Chloride Carbon Dioxide Anion Gap BUN Creatinine Est GFR ( Amer) Est GFR (Non-Af Amer) POC Glucose (mg/dL) 131 H 108 Random Glucose Calcium Phosphorus Magnesium Total Bilirubin GGT AST ALT Alkaline Phosphatase Troponin I Total Protein Albumin Globulin Albumin/Globulin Ratio Venous Blood Potassium Blood Type Antibody Screen Crossmatch BBK History Checked 08/12/18 08/12/18 08/12/18 05:45 06:30 10:30 WBC 8.7 RBC 2.94 L Hgb 8.8 L Hct 26.0 L MCV 88.4 MCH 29.9 MCHC 33.8 RDW 20.8 H Plt Count 104 L MPV 9.6 Gran % 90.9 H Lymph % (Auto) 5.1 L Barber % (Auto) 4.0 Eos % (Auto) 0.0 L Baso % (Auto) 0.0 Gran # 7.90 H Lymph # (Auto) 0.4 L Barber # (Auto) 0.4 Eos # (Auto) 0.0 Baso # (Auto) 0.00 Neutrophils % (Manual) Band Neutrophils % Lymphocytes % (Manual) Monocytes % (Manual) Toxic Granulation Platelet Evaluation Anisocytosis (manual) Tear Drop Cells Acanthocytes (Spur) pO2 VBG pH VBG pCO2 VBG HCO3 VBG Total CO2 VBG O2 Sat (Calc) VBG Base Excess VBG Potassium Glucose Lactate FiO2 Sodium 132 Potassium 5.0 Chloride 112 H Carbon Dioxide 15 L Anion Gap 10 BUN 24 H Creatinine 1.1 Est GFR ( Amer) 58 Est GFR (Non-Af Amer) 48 POC Glucose (mg/dL) Random Glucose 103 Calcium 8.4 Phosphorus Magnesium Total Bilirubin 0.7 GGT 264 H AST 32 ALT 64 H Alkaline Phosphatase 410 H D Troponin I Total Protein 4.0 L Albumin 1.6 L Globulin 2.5 Albumin/Globulin Ratio 0.6 L Venous Blood Potassium Blood Type Antibody Screen Crossmatch BBK History Checked 08/12/18 08/12/18 08/12/18 10:30 10:30 10:30 WBC RBC Hgb Hct MCV MCH MCHC RDW Plt Count MPV Gran % Lymph % (Auto) Barber % (Auto) Eos % (Auto) Baso % (Auto) Gran # Lymph # (Auto) Barber # (Auto) Eos # (Auto) Baso # (Auto) Neutrophils % (Manual) Band Neutrophils % Lymphocytes % (Manual) Monocytes % (Manual) Toxic Granulation Platelet Evaluation Anisocytosis (manual) Tear Drop Cells Acanthocytes (Spur) pO2 31 VBG pH 7.25 L VBG pCO2 46.0 VBG HCO3 20.2 L VBG Total CO2 21.6 L VBG O2 Sat (Calc) 60.3 VBG Base Excess -7.0 L VBG Potassium 4.7 Glucose 106 H Lactate 2.7 H FiO2 21.0 Sodium 133.0 134 Potassium 4.7 Chloride 108.0 H 112 H Carbon Dioxide 18 L Anion Gap 8 L BUN 23 H Creatinine 1.2 Est GFR ( Amer) 53 Est GFR (Non-Af Amer) 43 POC Glucose (mg/dL) Random Glucose 101 Calcium 8.3 L Phosphorus 2.5 Magnesium 1.9 Total Bilirubin 0.5 GGT AST 31 ALT 60 H Alkaline Phosphatase 389 H Troponin I < 0.01 D Total Protein 3.8 L Albumin 1.4 L Globulin 2.3 Albumin/Globulin Ratio 0.6 L Venous Blood Potassium 4.7 Blood Type A POSITIVE Antibody Screen Negative Crossmatch See Detail BBK History Checked Patient has bt 08/12/18 11:17 WBC RBC Hgb Hct MCV MCH MCHC RDW Plt Count MPV Gran % Lymph % (Auto) Barber % (Auto) Eos % (Auto) Baso % (Auto) Gran # Lymph # (Auto) Barber # (Auto) Eos # (Auto) Baso # (Auto) Neutrophils % (Manual) Band Neutrophils % Lymphocytes % (Manual) Monocytes % (Manual) Toxic Granulation Platelet Evaluation Anisocytosis (manual) Tear Drop Cells Acanthocytes (Spur) pO2 VBG pH VBG pCO2 VBG HCO3 VBG Total CO2 VBG O2 Sat (Calc) VBG Base Excess VBG Potassium Glucose Lactate FiO2 Sodium Potassium Chloride Carbon Dioxide Anion Gap BUN Creatinine Est GFR ( Amer) Est GFR (Non-Af Amer) POC Glucose (mg/dL) 102 Random Glucose Calcium Phosphorus Magnesium Total Bilirubin GGT AST ALT Alkaline Phosphatase Troponin I Total Protein Albumin Globulin Albumin/Globulin Ratio Venous Blood Potassium Blood Type Antibody Screen Crossmatch BBK History Checked Fingerstick Blood Sugar Results: 102 Review of Systems - Review of Systems All systems: reviewed and no additional remarkable complaints except (as per HPI.) Critical Care Progress Note - Extremities/Vascular Does the Patient have a Central Venous Catheter?: No Does the Patient need a Central Venous Catheter?: No Does the Patient have a Lugo Catheter?: Yes Does the Patient need a Lugo Catheter?: Yes Catheter Insertion Criteria: Patient has acute urinary retention or bladder outlet obstruction - Prophylaxis GI Prophylaxis GI: PPI - Prophylaxis DVT Prophylaxis DVT: SCDs - Nutrition Nutrition: Nutrition Category Date Time Status NPO Diet [DIET] Diets 08/12/18 Breakfast Ordered Assessment/Plan - Assessment and Plan (Free Text) Assessment: Patient is a 77 y/o F with a PMHx HTN, DMII, JOSE, Crohn's disease, dementia and now with admission diagnosis of new watershed stroke, NSTEMI - elevated troponins 2/2 stroke, and new onset atrial fibrillation with RVR who presented to the ICU with multiple episodes of hematochezia. Plan: Neuro/Psych - AAOx2 (baseline is AAOx3) - Neuro consulted for AMS - c/w seroquel 12.5mg qHS as per psych recommendations - Patient presented for delirium 2/2 new watershed stroke - continue w/ PT/OT Cardiovascular - Eliquis was held due to rectal bleed overnight; will not transfuse plasma to reverse Eliquis at this time however if bleed continues then may consider FFP - Afib with RVR was noted this morning; patient is now rate controlled - Last INR was 2.4 - c/w midodrine 5mg PO TID for blood pressure support - c/w Lopressor and Lipitor - Episode of Afib with RVR prior to arrival to the unit - NSTEMI - troponins elevated 2/2 stroke - Maintain normotensive Pulmonary - Maintain O2 sat >90% - Resting comfortably on room air; no signs of respiratory distress Gastrointestinal - Rectal bleed overnight. - GI recs appreciated: avoid NOACs. If GI bleed persists, recommend a repeat bleeding scan. - Flex sigmoidoscopy (08/08) revealed active Crohns with ulcerations; EGD was essentially negative - c/w mesalamine, rowasa enemas, prednisone 20mg BID, and flagyl per GI recs - Bleeding scan (08/05): no evidence of active GI bleed Infectious disease - c/w cefepime and flagyl day # 9 for pancolitis 2/2 Crohns flare - ID on consult. Recs appreciated. - C. Diff neg, stool cx neg Heme - Transfuse x2 pRBCs due to overnight rectal bleed and acute drop in Hgb from 9.8 to 8.9 - follow up repeat cbc in 4-6 hours - H/H stable DVT ppx: SCDs GI ppx: PTX 40mg PO daily Palliative Care is on board. Patient is DNR/DNI. Dispo: continue to monitor patient in the ICU. Case was discussed and reviewed with Attending Physician, Dr. Manning <Mukul Manning - Last Filed: 08/12/18 17:34> CCU Objective - Vital Signs / Intake & Output Vital Signs (Last 4 hours): Vital Signs Pulse Resp BP Pulse Ox 08/12/18 17:23 90 08/12/18 16:00 86 18 106/58 L 97 08/12/18 15:50 87 37 H 98 08/12/18 15:40 90 23 08/12/18 15:31 89 08/12/18 15:30 89 17 110/53 L 08/12/18 15:20 90 17 08/12/18 15:10 90 16 08/12/18 15:00 89 17 104/58 L 08/12/18 14:50 91 H 16 08/12/18 14:40 88 16 08/12/18 14:30 88 17 100/53 L 08/12/18 14:20 91 H 19 08/12/18 14:10 89 17 97 08/12/18 14:00 88 18 107/51 L 98 08/12/18 13:50 87 16 98 08/12/18 13:40 87 17 97 Intake and Output (Last 8hrs): Intake & Output 08/12/18 08/12/18 08/12/18 06:59 14:59 22:59 Intake Total 1360 1950 Output Total 250 Balance 1110 1950 Intake: IV 1200 1850 .9 Saline Bolus 1000 IVPB 200 PRBC 650 Right Upper arm 1200 Oral 160 100 Output: Urine 250 Urethral (Lugo) 250 Other: # Bowel Movements 0 - Medications Active Medications: Active Medications Generic Name Dose Route Start Last Admin Trade Name Freq PRN Reason Stop Dose Admin Acetaminophen 650 mg 08/09/18 21:57 08/10/18 21:32 Tylenol 325mg Tab PO 650 mg Q6H PRN Administration Pain, moderate (4-7) Albuterol/Ipratropium 3 ml 08/09/18 15:15 08/12/18 13:16 Duoneb 3 Mg/0.5 Mg (3 Ml) Ud IH 3 ml [id number] ANGELES Administration Atorvastatin Calcium 40 mg 07/30/18 17:00 08/12/18 17:23 Lipitor PO 40 mg DIN ANGELES Administration Cholecalciferol 2,000 intlu 07/29/18 10:00 08/12/18 09:51 Vitamin D PO 2,000 intlu DAILY ANGELES Administration Diltiazem HCl 60 mg 08/05/18 14:00 08/12/18 17:23 Cardizem PO Not Given TID ANGELES Guaifenesin 100 mg 08/09/18 15:30 08/09/18 15:41 Robitussin PO 100 mg Q4H PRN Administration Cough Metronidazole 500 mg in 100 mls @ 100 mls/hr 08/04/18 14:30 08/12/18 15:32 Flagyl IVPB 100 mls/hr Q8 ANGELES Administration Protocol Cefepime HCl 1 gm in 100 mls @ 100 mls/hr 08/06/18 10:00 08/12/18 09:52 Maxipime 1gm IVPB 100 mls/hr Q12 ANGELES Administration Protocol Insulin Human Regular 0 units 07/28/18 22:00 08/12/18 16:39 Humulin R Med SC Not Given ACHS ANGELES Protocol Lorazepam 0.25 mg 08/03/18 10:23 08/09/18 21:48 Ativan PO 0.25 mg Q6 PRN Administration Anxiety Protocol Mesalamine 500 mg 08/05/18 10:00 08/12/18 17:23 Pentasa PO 500 mg QID ANGELES Administration Midodrine 5 mg 08/11/18 14:00 08/12/18 17:23 Proamatine PO 5 mg TID ANGELES Administration Ondansetron HCl 4 mg 08/04/18 12:59 08/06/18 06:39 Zofran Inj IVP 4 mg Q4H PRN Administration Nausea/Vomiting Pantoprazole Sodium 40 mg 07/29/18 06:00 08/12/18 07:56 Protonix Ec Tab PO 40 mg 0600 ANGELES Administration Prednisone 20 mg 08/09/18 18:00 08/12/18 17:23 Prednisone Tab PO 20 mg BID ANGELES Administration Quetiapine Fumarate 12.5 mg 08/04/18 12:46 08/11/18 20:11 Seroquel PO 12.5 mg HS PRN Administration Agitation Protocol - Patient Studies Lab Studies: Lab Studies 08/12/18 08/12/18 08/12/18 Range/Units 16:37 11:17 10:30 WBC (4.5-11.0) 10^3/uL RBC (3.5-6.1) 10^6/uL Hgb (12.0-16.0) g/dL Hct (36.0-48.0) % MCV (80.0-105.0) fl MCH (25.0-35.0) pg MCHC (31.0-37.0) g/dl RDW (11.5-14.5) % Plt Count (120.0-450.0) 10^3/uL MPV (7.0-11.0) fl Gran % (50.0-68.0) % Lymph % (Auto) (22.0-35.0) % Barber % (Auto) (1.0-6.0) % Eos % (Auto) (1.5-5.0) % Baso % (Auto) (0.0-3.0) % Gran # (1.4-6.5) Lymph # (Auto) (1.2-3.4) Barber # (Auto) (0.1-0.6) Eos # (Auto) (0.0-0.7) Baso # (Auto) (0.0-2.0) K/mm3 Neutrophils % (Manual) (50.0-70.0) % Band Neutrophils % (0-2) % Lymphocytes % (Manual) (22.0-35.0) % Monocytes % (Manual) (1.0-6.0) % Toxic Granulation Platelet Evaluation (NORMAL) Anisocytosis (manual) Tear Drop Cells Acanthocytes (Spur) pO2 (30-55) mm/Hg VBG pH (7.32-7.43) VBG pCO2 (40-60) VBG HCO3 (21-28) mmol/l VBG Total CO2 (22-28) mmol.L VBG O2 Sat (Calc) (40-65) % VBG Base Excess (0.0-2.0) mmol/L VBG Potassium (3.6-5.2) mmol/L Glucose (65-105) mg/dl Lactate (0.7-2.1) mmol/L FiO2 % Sodium (132-148) mmol/L Potassium (3.6-5.0) mmol/L Chloride (98-107) mmol/L Carbon Dioxide (21-33) mmol/L Anion Gap (10-20) BUN (7-21) mg/dL Creatinine (0.7-1.2) mg/dl Est GFR ( Amer) Est GFR (Non-Af Amer) POC Glucose (mg/dL) 110 102 (65-110) mg/dL Random Glucose (70-110) mg/dL Calcium (8.4-10.5) mg/dL Phosphorus (2.5-4.5) mg/dL Magnesium (1.7-2.2) mg/dL Total Bilirubin (0.2-1.3) mg/dL GGT (8-78) U/L AST (14-36) U/L ALT (7-56) U/L Alkaline Phosphatase (38-126) U/L Troponin I ng/mL Total Protein (5.8-8.3) g/dL Albumin (3.0-4.8) g/dL Globulin gm/dL Albumin/Globulin Ratio (1.1-1.8) Venous Blood Potassium (3.6-5.2) mmol/L SILVIO Screen (Negative) Blood Type A POSITIVE Antibody Screen Negative Crossmatch See Detail BBK History Checked Patient has bt 08/12/18 08/12/18 08/12/18 Range/Units 10:30 10:30 10:30 WBC 8.7 (4.5-11.0) 10^3/uL RBC 2.94 L (3.5-6.1) 10^6/uL Hgb 8.8 L (12.0-16.0) g/dL Hct 26.0 L (36.0-48.0) % MCV 88.4 (80.0-105.0) fl MCH 29.9 (25.0-35.0) pg MCHC 33.8 (31.0-37.0) g/dl RDW 20.8 H (11.5-14.5) % Plt Count 104 L (120.0-450.0) 10^3/uL MPV 9.6 (7.0-11.0) fl Gran % 90.9 H (50.0-68.0) % Lymph % (Auto) 5.1 L (22.0-35.0) % Barber % (Auto) 4.0 (1.0-6.0) % Eos % (Auto) 0.0 L (1.5-5.0) % Baso % (Auto) 0.0 (0.0-3.0) % Gran # 7.90 H (1.4-6.5) Lymph # (Auto) 0.4 L (1.2-3.4) Barber # (Auto) 0.4 (0.1-0.6) Eos # (Auto) 0.0 (0.0-0.7) Baso # (Auto) 0.00 (0.0-2.0) K/mm3 Neutrophils % (Manual) (50.0-70.0) % Band Neutrophils % (0-2) % Lymphocytes % (Manual) (22.0-35.0) % Monocytes % (Manual) (1.0-6.0) % Toxic Granulation Platelet Evaluation (NORMAL) Anisocytosis (manual) Tear Drop Cells Acanthocytes (Spur) pO2 31 (30-55) mm/Hg VBG pH 7.25 L (7.32-7.43) VBG pCO2 46.0 (40-60) VBG HCO3 20.2 L (21-28) mmol/l VBG Total CO2 21.6 L (22-28) mmol.L VBG O2 Sat (Calc) 60.3 (40-65) % VBG Base Excess -7.0 L (0.0-2.0) mmol/L VBG Potassium 4.7 (3.6-5.2) mmol/L Glucose 106 H (65-105) mg/dl Lactate 2.7 H (0.7-2.1) mmol/L FiO2 21.0 % Sodium 134 133.0 (132-148) mmol/L Potassium 4.7 (3.6-5.0) mmol/L Chloride 112 H 108.0 H (98-107) mmol/L Carbon Dioxide 18 L (21-33) mmol/L Anion Gap 8 L (10-20) BUN 23 H (7-21) mg/dL Creatinine 1.2 (0.7-1.2) mg/dl Est GFR ( Amer) 53 Est GFR (Non-Af Amer) 43 POC Glucose (mg/dL) (65-110) mg/dL Random Glucose 101 (70-110) mg/dL Calcium 8.3 L (8.4-10.5) mg/dL Phosphorus 2.5 (2.5-4.5) mg/dL Magnesium 1.9 (1.7-2.2) mg/dL Total Bilirubin 0.5 (0.2-1.3) mg/dL GGT (8-78) U/L AST 31 (14-36) U/L ALT 60 H (7-56) U/L Alkaline Phosphatase 389 H (38-126) U/L Troponin I < 0.01 D ng/mL Total Protein 3.8 L (5.8-8.3) g/dL Albumin 1.4 L (3.0-4.8) g/dL Globulin 2.3 gm/dL Albumin/Globulin Ratio 0.6 L (1.1-1.8) Venous Blood Potassium 4.7 (3.6-5.2) mmol/L SILVIO Screen (Negative) Blood Type Antibody Screen Crossmatch BBK History Checked 08/12/18 08/12/18 08/12/18 Range/Units 06:30 05:45 05:45 WBC 8.9 D (4.5-11.0) 10^3/uL RBC 3.32 L (3.5-6.1) 10^6/uL Hgb 9.8 L (12.0-16.0) g/dL Hct 29.8 L (36.0-48.0) % MCV 89.8 (80.0-105.0) fl MCH 29.5 (25.0-35.0) pg MCHC 32.9 (31.0-37.0) g/dl RDW 21.0 H (11.5-14.5) % Plt Count 122 (120.0-450.0) 10^3/uL MPV 10.3 (7.0-11.0) fl Gran % 90.6 H (50.0-68.0) % Lymph % (Auto) 5.8 L (22.0-35.0) % Barber % (Auto) 3.6 (1.0-6.0) % Eos % (Auto) 0.0 L (1.5-5.0) % Baso % (Auto) 0.0 (0.0-3.0) % Gran # 8.03 H (1.4-6.5) Lymph # (Auto) 0.5 L (1.2-3.4) Barber # (Auto) 0.3 (0.1-0.6) Eos # (Auto) 0.0 (0.0-0.7) Baso # (Auto) 0.00 (0.0-2.0) K/mm3 Neutrophils % (Manual) 90 H (50.0-70.0) % Band Neutrophils % 4 H (0-2) % Lymphocytes % (Manual) 5 L (22.0-35.0) % Monocytes % (Manual) 1 (1.0-6.0) % Toxic Granulation Slight Platelet Evaluation Normal (NORMAL) Anisocytosis (manual) Slight Tear Drop Cells Slight Acanthocytes (Spur) Slight pO2 (30-55) mm/Hg VBG pH (7.32-7.43) VBG pCO2 (40-60) VBG HCO3 (21-28) mmol/l VBG Total CO2 (22-28) mmol.L VBG O2 Sat (Calc) (40-65) % VBG Base Excess (0.0-2.0) mmol/L VBG Potassium (3.6-5.2) mmol/L Glucose (65-105) mg/dl Lactate (0.7-2.1) mmol/L FiO2 % Sodium 132 (132-148) mmol/L Potassium 5.0 (3.6-5.0) mmol/L Chloride 112 H (98-107) mmol/L Carbon Dioxide 15 L (21-33) mmol/L Anion Gap 10 (10-20) BUN 24 H (7-21) mg/dL Creatinine 1.1 (0.7-1.2) mg/dl Est GFR ( Amer) 58 Est GFR (Non-Af Amer) 48 POC Glucose (mg/dL) (65-110) mg/dL Random Glucose 103 (70-110) mg/dL Calcium 8.4 (8.4-10.5) mg/dL Phosphorus (2.5-4.5) mg/dL Magnesium (1.7-2.2) mg/dL Total Bilirubin 0.7 (0.2-1.3) mg/dL GGT 264 H (8-78) U/L AST 32 (14-36) U/L ALT 64 H (7-56) U/L Alkaline Phosphatase 410 H D (38-126) U/L Troponin I ng/mL Total Protein 4.0 L (5.8-8.3) g/dL Albumin 1.6 L (3.0-4.8) g/dL Globulin 2.5 gm/dL Albumin/Globulin Ratio 0.6 L (1.1-1.8) Venous Blood Potassium (3.6-5.2) mmol/L SILVIO Screen (Negative) Blood Type Antibody Screen Crossmatch BBK History Checked 08/11/18 08/11/18 08/10/18 Range/Units 23:37 16:01 05:45 WBC (4.5-11.0) 10^3/uL RBC (3.5-6.1) 10^6/uL Hgb (12.0-16.0) g/dL Hct (36.0-48.0) % MCV (80.0-105.0) fl MCH (25.0-35.0) pg MCHC (31.0-37.0) g/dl RDW (11.5-14.5) % Plt Count (120.0-450.0) 10^3/uL MPV (7.0-11.0) fl Gran % (50.0-68.0) % Lymph % (Auto) (22.0-35.0) % Barber % (Auto) (1.0-6.0) % Eos % (Auto) (1.5-5.0) % Baso % (Auto) (0.0-3.0) % Gran # (1.4-6.5) Lymph # (Auto) (1.2-3.4) Barber # (Auto) (0.1-0.6) Eos # (Auto) (0.0-0.7) Baso # (Auto) (0.0-2.0) K/mm3 Neutrophils % (Manual) (50.0-70.0) % Band Neutrophils % (0-2) % Lymphocytes % (Manual) (22.0-35.0) % Monocytes % (Manual) (1.0-6.0) % Toxic Granulation Platelet Evaluation (NORMAL) Anisocytosis (manual) Tear Drop Cells Acanthocytes (Spur) pO2 (30-55) mm/Hg VBG pH (7.32-7.43) VBG pCO2 (40-60) VBG HCO3 (21-28) mmol/l VBG Total CO2 (22-28) mmol.L VBG O2 Sat (Calc) (40-65) % VBG Base Excess (0.0-2.0) mmol/L VBG Potassium (3.6-5.2) mmol/L Glucose (65-105) mg/dl Lactate (0.7-2.1) mmol/L FiO2 % Sodium (132-148) mmol/L Potassium (3.6-5.0) mmol/L Chloride (98-107) mmol/L Carbon Dioxide (21-33) mmol/L Anion Gap (10-20) BUN (7-21) mg/dL Creatinine (0.7-1.2) mg/dl Est GFR ( Amer) Est GFR (Non-Af Amer) POC Glucose (mg/dL) 108 131 H (65-110) mg/dL Random Glucose (70-110) mg/dL Calcium (8.4-10.5) mg/dL Phosphorus (2.5-4.5) mg/dL Magnesium (1.7-2.2) mg/dL Total Bilirubin (0.2-1.3) mg/dL GGT (8-78) U/L AST (14-36) U/L ALT (7-56) U/L Alkaline Phosphatase (38-126) U/L Troponin I ng/mL Total Protein (5.8-8.3) g/dL Albumin (3.0-4.8) g/dL Globulin gm/dL Albumin/Globulin Ratio (1.1-1.8) Venous Blood Potassium (3.6-5.2) mmol/L SILVIO Screen Negative (Negative) Blood Type Antibody Screen Crossmatch BBK History Checked Laboratory Results - last 24 hr 08/10/18 08/11/18 08/11/18 05:45 16:01 23:37 WBC RBC Hgb Hct MCV MCH MCHC RDW Plt Count MPV Gran % Lymph % (Auto) Barber % (Auto) Eos % (Auto) Baso % (Auto) Gran # Lymph # (Auto) Barber # (Auto) Eos # (Auto) Baso # (Auto) Neutrophils % (Manual) Band Neutrophils % Lymphocytes % (Manual) Monocytes % (Manual) Toxic Granulation Platelet Evaluation Anisocytosis (manual) Tear Drop Cells Acanthocytes (Spur) pO2 VBG pH VBG pCO2 VBG HCO3 VBG Total CO2 VBG O2 Sat (Calc) VBG Base Excess VBG Potassium Glucose Lactate FiO2 Sodium Potassium Chloride Carbon Dioxide Anion Gap BUN Creatinine Est GFR ( Amer) Est GFR (Non-Af Amer) POC Glucose (mg/dL) 131 H 108 Random Glucose Calcium Phosphorus Magnesium Total Bilirubin GGT AST ALT Alkaline Phosphatase Troponin I Total Protein Albumin Globulin Albumin/Globulin Ratio Venous Blood Potassium SILVIO Screen Negative Blood Type Antibody Screen Crossmatch BBK History Checked 08/12/18 08/12/18 08/12/18 05:45 05:45 06:30 WBC 8.9 D RBC 3.32 L Hgb 9.8 L Hct 29.8 L MCV 89.8 MCH 29.5 MCHC 32.9 RDW 21.0 H Plt Count 122 MPV 10.3 Gran % 90.6 H Lymph % (Auto) 5.8 L Barber % (Auto) 3.6 Eos % (Auto) 0.0 L Baso % (Auto) 0.0 Gran # 8.03 H Lymph # (Auto) 0.5 L Barber # (Auto) 0.3 Eos # (Auto) 0.0 Baso # (Auto) 0.00 Neutrophils % (Manual) 90 H Band Neutrophils % 4 H Lymphocytes % (Manual) 5 L Monocytes % (Manual) 1 Toxic Granulation Slight Platelet Evaluation Normal Anisocytosis (manual) Slight Tear Drop Cells Slight Acanthocytes (Spur) Slight pO2 VBG pH VBG pCO2 VBG HCO3 VBG Total CO2 VBG O2 Sat (Calc) VBG Base Excess VBG Potassium Glucose Lactate FiO2 Sodium 132 Potassium 5.0 Chloride 112 H Carbon Dioxide 15 L Anion Gap 10 BUN 24 H Creatinine 1.1 Est GFR ( Amer) 58 Est GFR (Non-Af Amer) 48 POC Glucose (mg/dL) Random Glucose 103 Calcium 8.4 Phosphorus Magnesium Total Bilirubin 0.7 GGT 264 H AST 32 ALT 64 H Alkaline Phosphatase 410 H D Troponin I Total Protein 4.0 L Albumin 1.6 L Globulin 2.5 Albumin/Globulin Ratio 0.6 L Venous Blood Potassium SILVIO Screen Blood Type Antibody Screen Crossmatch BBK History Checked 08/12/18 08/12/18 08/12/18 10:30 10:30 10:30 WBC 8.7 RBC 2.94 L Hgb 8.8 L Hct 26.0 L MCV 88.4 MCH 29.9 MCHC 33.8 RDW 20.8 H Plt Count 104 L MPV 9.6 Gran % 90.9 H Lymph % (Auto) 5.1 L Barber % (Auto) 4.0 Eos % (Auto) 0.0 L Baso % (Auto) 0.0 Gran # 7.90 H Lymph # (Auto) 0.4 L Barber # (Auto) 0.4 Eos # (Auto) 0.0 Baso # (Auto) 0.00 Neutrophils % (Manual) Band Neutrophils % Lymphocytes % (Manual) Monocytes % (Manual) Toxic Granulation Platelet Evaluation Anisocytosis (manual) Tear Drop Cells Acanthocytes (Spur) pO2 31 VBG pH 7.25 L VBG pCO2 46.0 VBG HCO3 20.2 L VBG Total CO2 21.6 L VBG O2 Sat (Calc) 60.3 VBG Base Excess -7.0 L VBG Potassium 4.7 Glucose 106 H Lactate 2.7 H FiO2 21.0 Sodium 133.0 134 Potassium 4.7 Chloride 108.0 H 112 H Carbon Dioxide 18 L Anion Gap 8 L BUN 23 H Creatinine 1.2 Est GFR ( Amer) 53 Est GFR (Non-Af Amer) 43 POC Glucose (mg/dL) Random Glucose 101 Calcium 8.3 L Phosphorus 2.5 Magnesium 1.9 Total Bilirubin 0.5 GGT AST 31 ALT 60 H Alkaline Phosphatase 389 H Troponin I < 0.01 D Total Protein 3.8 L Albumin 1.4 L Globulin 2.3 Albumin/Globulin Ratio 0.6 L Venous Blood Potassium 4.7 SILVIO Screen Blood Type Antibody Screen Crossmatch BBK History Checked 08/12/18 08/12/18 08/12/18 10:30 11:17 16:37 WBC RBC Hgb Hct MCV MCH MCHC RDW Plt Count MPV Gran % Lymph % (Auto) Barber % (Auto) Eos % (Auto) Baso % (Auto) Gran # Lymph # (Auto) Barber # (Auto) Eos # (Auto) Baso # (Auto) Neutrophils % (Manual) Band Neutrophils % Lymphocytes % (Manual) Monocytes % (Manual) Toxic Granulation Platelet Evaluation Anisocytosis (manual) Tear Drop Cells Acanthocytes (Spur) pO2 VBG pH VBG pCO2 VBG HCO3 VBG Total CO2 VBG O2 Sat (Calc) VBG Base Excess VBG Potassium Glucose Lactate FiO2 Sodium Potassium Chloride Carbon Dioxide Anion Gap BUN Creatinine Est GFR ( Amer) Est GFR (Non-Af Amer) POC Glucose (mg/dL) 102 110 Random Glucose Calcium Phosphorus Magnesium Total Bilirubin GGT AST ALT Alkaline Phosphatase Troponin I Total Protein Albumin Globulin Albumin/Globulin Ratio Venous Blood Potassium SILVIO Screen Blood Type A POSITIVE Antibody Screen Negative Crossmatch See Detail BBK History Checked Patient has bt Critical Care Progress Note - Nutrition Nutrition: Nutrition Category Date Time Status NPO Diet [DIET] Diets 08/12/18 Breakfast Ordered Attending/Attestation - Attestation I have personally seen and examined this patient.: Yes I have fully participated in the care of the patient.: Yes I have reviewed all pertinent clinical information: Yes Notes (Text): 08/12/18 17:[address] Manning note
--- NOTE | 2018-08-12 14:35 | PN ---
DATE: 08/12/2018 CARDIOLOGY FOLLOWUP SUBJECTIVE: The patient with a large bloody bowel movement noted. The patient is in no acute distress. PHYSICAL EXAMINATION: VITAL SIGNS: Blood pressure is 95 systolic, heart rate in the 80s. NECK: Negative JVD. LUNGS: Without rales. HEART: S1 and S2. EXTREMITIES: Without edema. LABORATORY DATA: Hemoglobin is 8.8 from 9.8 yesterday. BUN and creatinine unremarkable. ASSESSMENT: 1. Recurrent gastrointestinal bleed. 2. Paroxysmal atrial fibrillation. 3. History of cerebrovascular accident. 4. [id number] myocardial infarction. 5. Coronary artery disease. PLAN: Given these findings, the patient with another source of GI bleed. Her GI bleeding source has not been identified. However, given her recurrent GI bleeds, we will discontinue the Eliquis. We will discontinue her aspirin until the GI bleed is resolved. Tello Talbert MD
[2018-08-12 18:33] LABS: MEAN CELL VOLUME 86.7 fl (80.0-105.0); MEAN CORPUSCULAR HEMOGLOBIN 29.6 pg (25.0-35.0); MEAN CORPUSCULAR HGB CONC 34.1 g/dl (31.0-37.0); MEAN PLATELET VOLUME 9.6 fl (7.0-11.0); RBC 4.43 10^6/uL (3.5-6.1); RED CELL DISTRIBUTION WIDTH 17.8 % (11.5-14.5); WHITE BLOOD COUNT 11.4 10^3/uL (4.5-11.0)
[2018-08-12 18:34] LABS: HEMOGLOBIN 13.1 g/dL (12.0-16.0); VENOUS BLOOD GAS BASE EXCESS -5.8 mmol/L (0.0-2.0); VENOUS BLOOD GAS PO2 26 mm/Hg (30-55); VENOUS BLOOD PH 7.33 (7.32-7.43)
--- NOTE | 2018-08-12 19:48 | PN ---
DATE: 08/12/2018 SUBJECTIVE: The patient is seen earlier this morning 128, bed 4. Overall, the patient appears chronically ill and weak. No fevers reported. OBJECTIVE: VITAL SIGNS: Temperature is 98, blood pressure is 117/60, and respiratory rate of 18. HEENT: Unremarkable. NECK: Supple. LUNGS: Have decreased breath sounds. HEART: Normal S1 and S2. ABDOMEN: Soft. LABORATORY DATA: Reveals a white count of 8.7, hemoglobin of 8, and platelets of 104,000. Chemistries are noted. BUN of 23 and creatinine of 1.2. Urinalysis is noted. Toxicology is noted. Immunology is reviewed. Microbiology reveals a MRSA screen is negative. Blood cultures, no growth. Stool cultures; no Salmonella, no Shigella or Campylobacter isolated and urine cultures multiple organisms and repeat urine culture is no growth. Review of orders reveals the patient's medication list includes Flagyl, cefepime and Dr. Tello Talbert's note is reviewed. ASSESSMENT AND PLAN: This is a 77-year-old female with pancolitis and Crohn's disease, acute cerebrovascular accident, hypertension, diabetes, chronic obstructive lung disease, day #9 of cefepime and Flagyl, would complete 10 days. Thus far, the cultures are negative and overall prognosis is quite poor. Suzy Martin's note is reviewed. Ranjit Vaca MD
[2018-08-13 00:38] LABS: VENOUS BLOOD GAS BASE EXCESS -7.4 mmol/L (0.0-2.0); VENOUS BLOOD GAS PO2 145 mm/Hg (30-55); VENOUS BLOOD PH 7.34 (7.32-7.43)
[2018-08-13 00:47] LABS: GRAN # 11.05 (1.4-6.5); GRAN % 90.7 % (50.0-68.0); HEMOGLOBIN 13.5 g/dL (12.0-16.0); LYMPH # 0.7 (1.2-3.4); LYMPH % 5.3 % (22.0-35.0); MEAN CELL VOLUME 87.1 fl (80.0-105.0); MEAN CORPUSCULAR HEMOGLOBIN 29.4 pg (25.0-35.0); MEAN CORPUSCULAR HGB CONC 33.8 g/dl (31.0-37.0); MEAN PLATELET VOLUME 10.2 fl (7.0-11.0); MONO # 0.5 (0.1-0.6); RBC 4.59 10^6/uL (3.5-6.1); RED CELL DISTRIBUTION WIDTH 18.4 % (11.5-14.5); WHITE BLOOD COUNT 12.2 10^3/uL (4.5-11.0)
[2018-08-13] MEDS: Albuterol-Ipratrop 3 mg / 0.5 (3 ml) UD IH SCH ×4 (02:00→20:10)
[2018-08-13 02:35] LABS: ALB/GLOB RATIO 0.6 (1.1-1.8); ALBUMIN 1.7 g/dL (3.0-4.8); CALCIUM 8.9 mg/dL (8.4-10.5)
[2018-08-13] MEDS: metroNIDAZOLE IV 500 mg/100 ml 500 MG/100 ML BAG IVPB SCH ×3 (05:03→21:45)
[2018-08-13] MEDS: Pantoprazole 40 mg EC Tab PO SCH (05:03)
[2018-08-13 06:30] LABS: VENOUS BLOOD GAS BASE EXCESS -6.8 mmol/L (0.0-2.0); VENOUS BLOOD GAS PO2 60 mm/Hg (30-55); VENOUS BLOOD PH 7.35 (7.32-7.43)
[2018-08-13 06:34] LABS: GRAN # 11.31 (1.4-6.5); GRAN % 88.9 % (50.0-68.0); HEMOGLOBIN 13.3 g/dL (12.0-16.0); LYMPH # 0.8 (1.2-3.4); LYMPH % 6.1 % (22.0-35.0); MEAN CELL VOLUME 86.9 fl (80.0-105.0); MEAN CORPUSCULAR HEMOGLOBIN 29.6 pg (25.0-35.0); MEAN PLATELET VOLUME 9.9 fl (7.0-11.0); MONO # 0.6 (0.1-0.6); RBC 4.5 10^6/uL (3.5-6.1); RED CELL DISTRIBUTION WIDTH 18.5 % (11.5-14.5); WHITE BLOOD COUNT 12.7 10^3/uL (4.5-11.0)
[2018-08-13 07:32] LABS: ALB/GLOB RATIO 0.6 (1.1-1.8); ALBUMIN 1.7 g/dL (3.0-4.8); CALCIUM 8.9 mg/dL (8.4-10.5)
[2018-08-13] MEDS: Insulin Reg-MEDIUM-Coverage SC SCH ×4 (08:00→21:43)
--- NOTE | 2018-08-13 08:03 | PN ---
DATE: 08/13/2018 SUBJECTIVE: Patient is in the ICU 128, bed 4. Seen earlier this morning. No fevers. Uneventful night. The patient received an NG tube yesterday rather and there has been diarrhea and loose bowel movements reported. PHYSICAL EXAMINATION: VITAL SIGNS: On exam, temperature is 98, heart rate is 91, respiratory rate of 20, blood pressure is 130/70. HEENT: Examination of HEENT reveals an NG tube is in place. NECK: Supple. LUNGS: Have decreased breath sounds. HEART: Normal S1, S2. ABDOMEN: Soft, nontender. No rebound or guarding. LABORATORY DATA: Laboratory examination reveals a white count of 12,700, hemoglobin of 13, platelets of 104. Chemistries reveals a BUN of 29, creatinine of 1.2. LFTs are elevated. Alk phos is 436 and urinalysis is reviewed. Toxicology is reviewed. Immunology is pending. Serology is noted. Microbiology,reveals nares MRSA is not detected. Urine cultures no growth. Blood cultures are no growth. Stool cultures, no Salmonella, no Shigella, no Campylobacter. Stool for C. Diff antigen and toxin are both negative. ASSESSMENT AND PLAN: A 77-year-old female with pancolitis and Crohn disease, acute cerebrovascular accident, hypertension, diabetes, chronic obstructive lung disease, day #10 of cefepime and Flagyl and review of orders reveals Flagyl and the patient is also on cefepime and the patient is also on prednisone, day #10. We will follow with you. Overall prognosis is quite poor. Ranjit Vaca MD
--- NOTE | 2018-08-13 09:04 | CP.PCM.PN ---
Subjective - Date & Time of Evaluation Date of Evaluation: 08/13/18 Time of Evaluation: 09:00 - Subjective Subjective: General Surgery Dr. Adams Pt S&E @bedside. Pt had multiple episodes of melena/clotted bloody BMs yesterday. NGT placed in the AM w/ initial coffee-ground drainage. Pt transfused 2 units pRBC and repeat H/H stable. NAEO. Scant NGT drainage overnight w/ no further coffee ground drainage. No signs of UGIB. NGT removed by surgical team on rounds. Pt altered and nonverbal. ROS unobtainable. Objective - Vital Signs/Intake and Output Vital Signs (last 24 hours): Temp Pulse Resp BP Pulse Ox 97.8 F 89 16 138/70 98 08/12/18 12:00 08/13/18 06:00 08/13/18 03:50 08/13/18 03:00 08/13/18 03:50 Intake and Output: 08/13/18 08/13/18 06:59 18:59 Intake Total 300 Output Total 50 Balance 250 - Medications Medications: Current Medications Acetaminophen (Tylenol 325mg Tab) 650 mg PO Q6H PRN PRN Reason: Pain, moderate (4-7) Last Admin: 08/12/18 20:46 Dose: 650 mg Albuterol/Ipratropium (Duoneb 3 Mg/0.5 Mg (3 Ml) Ud) 3 ml IH [id number] [facility] Last Admin: 08/13/18 07:31 Dose: 3 ml Atorvastatin Calcium (Lipitor) 40 mg PO DIN [facility] Last Admin: 08/12/18 17:23 Dose: 40 mg Cholecalciferol (Vitamin D) 2,000 intlu PO DAILY [facility] Last Admin: 08/12/18 09:51 Dose: 2,000 intlu Diltiazem HCl (Cardizem) 60 mg PO TID [facility] Last Admin: 08/12/18 17:23 Dose: Not Given Guaifenesin (Robitussin) 100 mg PO Q4H PRN PRN Reason: Cough Last Admin: 08/09/18 15:41 Dose: 100 mg Metronidazole (Flagyl) 500 mg in 100 mls @ 100 mls/hr IVPB Q8 [facility]; Protocol Last Admin: 08/13/18 05:03 Dose: 100 mls/hr Cefepime HCl (Maxipime 1gm) 1 gm in 100 mls @ 100 mls/hr IVPB Q12 [facility]; Protocol Last Admin: 08/12/18 21:04 Dose: 100 mls/hr Insulin Human Regular (Humulin R Med) 0 units SC ACHS [facility]; Protocol Last Admin: 08/12/18 21:54 Dose: Not Given Lorazepam (Ativan) 0.25 mg PO Q6 PRN; 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 Reason: Anxiety Last Admin: 08/09/18 21:48 Dose: 0.25 mg Mesalamine (Pentasa) 500 mg PO QID [facility] Last Admin: 08/12/18 21:06 Dose: 500 mg Midodrine (Proamatine) 5 mg PO TID [facility] Last Admin: 08/12/18 17:23 Dose: 5 mg Ondansetron HCl (Zofran Inj) 4 mg IVP Q4H PRN PRN Reason: Nausea/Vomiting Last Admin: 08/06/18 06:39 Dose: 4 mg Pantoprazole Sodium (Protonix Ec Tab) 40 mg PO 0600 [facility] Last Admin: 08/13/18 05:03 Dose: 40 mg Prednisone (Prednisone Tab) 20 mg PO BID [facility] Last Admin: 08/12/18 17:23 Dose: 20 mg Quetiapine Fumarate (Seroquel) 12.5 mg PO HS PRN; 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 Reason: Agitation Last Admin: 08/12/18 23:10 Dose: 12.5 mg - Labs Labs: 08/13/18 06:15 08/13/18 06:15 PT 28.2 SECONDS (9.4-12.5) H 08/07/18 09:00 INR 2.41 08/07/18 09:00 APTT 36.0 Seconds (25.1-36.5) 08/01/18 05:30 - Constitutional Appears: Non-toxic, Chronically Ill - Head Exam Head Exam: NORMAL INSPECTION - Eye Exam Eye Exam: Normal appearance - ENT Exam ENT Exam: Mucous Membranes Moist - Respiratory Exam Respiratory Exam: NORMAL BREATHING PATTERN. absent: Accessory Muscle Use, Respiratory Distress - Cardiovascular Exam Cardiovascular Exam: absent: Bradycardia, Tachycardia - GI/Abdominal Exam GI & Abdominal Exam: Soft. absent: Distended, Firm, Guarding, Rigid, Te nderness, Rebound - Extremities Exam Extremities Exam: Normal Inspection - Neurological Exam Neurological Exam: Alert, Altered, Awake. absent: Oriented x3 - Psychiatric Exam Psychiatric exam: Flat Affect, Normal Mood - Skin Skin Exam: Dry, Intact, Normal Color, Warm Assessment and Plan - Assessment and Plan (Free Text) Assessment: 77 y/o F w/ acute Crohn's flair and GI bleeding 2/2 Eliquis administration Plan: - ADAT - NGT removed - monitor bowel fxn - transfuse for Hgb <7 - repeat bleeding scan vs angio if continued bleeding - f/u GI recs --> possible re-scope? - reconsider Eliquis for AC considering recurrent GI bleeding w/ use - No surgical intervention at this time. Pt discussed w/ Dr. Bryan Prado DO PGY3
--- NOTE | 2018-08-13 09:38 | CP.PCM.PN ---
Subjective - Date & Time of Evaluation Date of Evaluation: 08/13/18 Time of Evaluation: 09:35 - Subjective Subjective: Neurology Progress Note for Dr. Morales Patient seen and examined at bedside. No acute overnight events. Patient is aphasic for the most part, but will respond somewhat after an extended period of time. However, she does respond to commands. ROS limited 2/2 mental status. Objective - Vital Signs/Intake and Output Vital Signs (last 24 hours): Temp Pulse Resp BP Pulse Ox 97.8 F 89 16 138/70 98 08/12/18 12:00 08/13/18 06:00 08/13/18 03:50 08/13/18 03:00 08/13/18 03:50 Intake and Output: 08/13/18 08/13/18 06:59 18:59 Intake Total 300 Output Total 50 Balance 250 - Medications Medications: Current Medications Acetaminophen (Tylenol 325mg Tab) 650 mg PO Q6H PRN PRN Reason: Pain, moderate (4-7) Last Admin: 08/12/18 20:46 Dose: 650 mg Albuterol/Ipratropium (Duoneb 3 Mg/0.5 Mg (3 Ml) Ud) 3 ml IH [id number] [facility] Last Admin: 08/13/18 07:31 Dose: 3 ml Atorvastatin Calcium (Lipitor) 40 mg PO DIN [facility] Last Admin: 08/12/18 17:23 Dose: 40 mg Cholecalciferol (Vitamin D) 2,000 intlu PO DAILY [facility] Last Admin: 08/12/18 09:51 Dose: 2,000 intlu Diltiazem HCl (Cardizem) 60 mg PO TID [facility] Last Admin: 08/12/18 17:23 Dose: Not Given Guaifenesin (Robitussin) 100 mg PO Q4H PRN PRN Reason: Cough Last Admin: 08/09/18 15:41 Dose: 100 mg Metronidazole (Flagyl) 500 mg in 100 mls @ 100 mls/hr IVPB Q8 [facility]; Protocol Last Admin: 08/13/18 05:03 Dose: 100 mls/hr Cefepime HCl (Maxipime 1gm) 1 gm in 100 mls @ 100 mls/hr IVPB Q12 [facility]; Protocol Last Admin: 08/12/18 21:04 Dose: 100 mls/hr Insulin Human Regular (Humulin R Med) 0 units SC ACHS [facility]; Protocol Last Admin: 08/12/18 21:54 Dose: Not Given Lorazepam (Ativan) 0.25 mg PO Q6 PRN; 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 Reason: Anxiety Last Admin: 08/09/18 21:48 Dose: 0.25 mg Mesalamine (Pentasa) 500 mg PO QID [facility] Last Admin: 08/12/18 21:06 Dose: 500 mg Midodrine (Proamatine) 5 mg PO TID [facility] Last Admin: 08/12/18 17:23 Dose: 5 mg Ondansetron HCl (Zofran Inj) 4 mg IVP Q4H PRN PRN Reason: Nausea/Vomiting Last Admin: 08/06/18 06:39 Dose: 4 mg Pantoprazole Sodium (Protonix Ec Tab) 40 mg PO 0600 [facility] Last Admin: 08/13/18 05:03 Dose: 40 mg Prednisone (Prednisone Tab) 20 mg PO BID [facility] Last Admin: 08/12/18 17:23 Dose: 20 mg Quetiapine Fumarate (Seroquel) 12.5 mg PO HS PRN; 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 Reason: Agitation Last Admin: 08/12/18 23:10 Dose: 12.5 mg - Labs Labs: 08/13/18 06:15 08/13/18 06:15 PT 28.2 SECONDS (9.4-12.5) H 08/07/18 09:00 INR 2.41 08/07/18 09:00 APTT 36.0 Seconds (25.1-36.5) 08/01/18 05:30 - Constitutional Appears: No Acute Distress - Head Exam Head Exam: NORMAL INSPECTION - Eye Exam Eye Exam: Normal appearance - ENT Exam ENT Exam: Mucous Membranes Moist, Normal Exam - Respiratory Exam Respiratory Exam: Clear to Ausculation Bilateral. absent: Rales, Rhonchi, Wheezes - Cardiovascular Exam Cardiovascular Exam: REGULAR RHYTHM, RRR, +S1, +S2 - GI/Abdominal Exam GI & Abdominal Exam: Soft. absent: Distended, Guarding, Tenderness, Rebound - Extremities Exam Extremities Exam: Normal Inspection - Neurological Exam Neurological Exam: Alert, Awake - Psychiatric Exam Psychiatric exam: Normal Affect - Skin Skin Exam: Normal Color Assessment and Plan - Assessment and Plan (Free Text) Assessment: Patient is a 77 year old female with a past medical history of HTN, DM2, and OA who was admitted for evaluation and treatment of altered mental status and hallucinations/delusions. Neurology was consulted for management of altered mental status. Plan: - 07/28/[address] without contrast- Moderate volume loss and chronic microvascular ischemic disease. No evidence of acute intracranial hemorrhage mass effect or midline shift. - 07/29/2018 Brain MRI with and without contrast- multiple small cortical and subcortical infarcts in both hemispheres right greater than left - 07/30/2018 CTA head and neck- No evidence of stenosis or occlusion, Unremarkable CT Angiography of the Brain. - 07/2018 Echocardiogram- LVEF 63%, moderate to severe aortic regurg - 08/06/2018- CT Head without Contrast- No acute findings - Concern for second CVA, as patient is more aphasic then on admission and given she was off anticoagulation and antiplatelets 2/2 GI bleed - Repeat MRI ordered - Continue with PT, OT, and speech therapy - Recommend neurocognitive therapy on outpatient basis Patient seen and discussed in detail with Dr. Morales. Garcia Aldana DO PGY2
--- NOTE | 2018-08-13 10:11 | CP.PCM.PN ---
<Teresa Lock - Last Filed: 08/13/18 10:08> Subjective - Date & Time of Evaluation Date of Evaluation: 08/13/18 Time of Evaluation: 10:08 - Subjective Subjective: Gastroenterology Fellow/PGY6 Progress Note Patient resting comfortably. Denies abdominal pain. NGT removed. No rectal bleeding since yesterday morning. A 12-point review of systems negative except for as above. Objective - Vital Signs/Intake and Output Vital Signs (last 24 hours): Temp Pulse Resp BP Pulse Ox 97.8 F 89 16 138/70 98 08/12/18 12:00 08/13/18 06:00 08/13/18 03:50 08/13/18 03:00 08/13/18 03:50 Intake and Output: 08/13/18 08/13/18 06:59 18:59 Intake Total 300 Output Total 50 Balance 250 - Medications Medications: Current Medications Acetaminophen (Tylenol 325mg Tab) 650 mg PO Q6H PRN PRN Reason: Pain, moderate (4-7) Last Admin: 08/12/18 20:46 Dose: 650 mg Albuterol/Ipratropium (Duoneb 3 Mg/0.5 Mg (3 Ml) Ud) 3 ml IH [id number] [facility], [facility] Last Admin: 08/13/18 07:31 Dose: 3 ml Atorvastatin Calcium (Lipitor) 40 mg PO DIN [facility] Last Admin: 08/12/18 17:23 Dose: 40 mg Cholecalciferol (Vitamin D) 2,000 intlu PO DAILY [facility], [facility] Last Admin: 08/12/18 09:51 Dose: 2,000 intlu Diltiazem HCl (Cardizem) 60 mg PO TID [facility] Last Admin: 08/12/18 17:23 Dose: Not Given Guaifenesin (Robitussin) 100 mg PO Q4H PRN PRN Reason: Cough Last Admin: 08/09/18 15:41 Dose: 100 mg Metronidazole (Flagyl) 500 mg in 100 mls @ 100 mls/hr IVPB Q8 [facility], [facility]; Protocol Last Admin: 08/13/18 05:03 Dose: 100 mls/hr Cefepime HCl (Maxipime 1gm) 1 gm in 100 mls @ 100 mls/hr IVPB Q12 [facility], [facility]; Protocol Last Admin: 08/12/18 21:04 Dose: 100 mls/hr Insulin Human Regular (Humulin R Med) 0 units SC ACHS [facility], [facility]; Protocol Last Admin: 08/12/18 21:54 Dose: Not Given Lorazepam (Ativan) 0.25 mg PO Q6 PRN; 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 Reason: Anxiety Last Admin: 08/09/18 21:48 Dose: 0.25 mg Mesalamine (Pentasa) 500 mg PO QID [facility] Last Admin: 08/12/18 21:06 Dose: 500 mg Midodrine (Proamatine) 5 mg PO TID [facility] Last Admin: 08/12/18 17:23 Dose: 5 mg Ondansetron HCl (Zofran Inj) 4 mg IVP Q4H PRN PRN Reason: Nausea/Vomiting Last Admin: 08/06/18 06:39 Dose: 4 mg Pantoprazole Sodium (Protonix Ec Tab) 40 mg PO 0600 [facility] Last Admin: 08/13/18 05:03 Dose: 40 mg Prednisone (Prednisone Tab) 20 mg PO BID [facility] Last Admin: 08/12/18 17:23 Dose: 20 mg Quetiapine Fumarate (Seroquel) 12.5 mg PO HS PRN; 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 Reason: Agitation Last Admin: 08/12/18 23:10 Dose: 12.5 mg - Labs Labs: 08/13/18 06:15 08/13/18 06:15 PT 28.2 SECONDS (9.4-12.5) H 08/07/18 09:00 INR 2.41 08/07/18 09:00 APTT 36.0 Seconds (25.1-36.5) 08/01/18 05:30 - Constitutional Appears: Non-toxic, No Acute Distress - Head Exam Head Exam: ATRAUMATIC, NORMOCEPHALIC - Eye Exam Eye Exam: EOMI, PERRL. absent: Scleral icterus Pupil Exam: PERRL. absent: Miosis, Mydriatic - ENT Exam ENT Exam: Mucous Membranes Moist, Normal Oropharynx - Neck Exam Neck Exam: Full ROM, Normal Inspection - Respiratory Exam Respiratory Exam: Clear to Ausculation Bilateral. absent: Rales, Rhonchi, Wheezes - Cardiovascular Exam Cardiovascular Exam: RRR, +S1, +S2. absent: Gallop, Rubs - GI/Abdominal Exam GI & Abdominal Exam: Soft, Normal Bowel Sounds. absent: Distended, Firm, Guarding, Rigid, Tenderness, Organomegaly, Rebound - Extremities Exam Extremities Exam: Normal Inspection. absent: Pedal Edema - Neurological Exam Neurological Exam: Alert, Awake - Psychiatric Exam Psychiatric exam: Normal Affect, Normal Mood - Skin Skin Exam: Dry, Intact, Normal Color, Warm Assessment and Plan - Assessment and Plan (Free Text) Assessment: 77 year old female with PMH of HTN, DM, osteoarthritis, COPD and suspected Crohn's Disease 2014 (not currently on maintenance therapy) presenting with altered mental status. Active treatment of recurrent Lower GI bleed 2/2 Eliquis requiring transfusion with flexible sigmoidoscopy to 40cm showing active bleeding from extensively ulcerated mucosa- likely 2/2 Crohn's disease flare. 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 \ Plan: -H/H stable -consider GI bleeding scan if bleeding re-occurs -recommend avoid NOACs -advance to clear liquid diet -on Prednisone 20mg BID day 5, Rowasa enema, and Mesalamine 500mg QID -on cefepime and flagyl day 10, recommend discontinuation -elevated ALP likely secondary to cholestasis in setting of cefepime use -avoid hepatotoxic medications -neurology managing -will follow clinical course <Harper Santiago V - Last Filed: 08/13/18 21:27> Objective - Vital Signs/Intake and Output Vital Signs (last 24 hours): Temp Pulse Resp BP Pulse Ox 97.8 F 100 H 19 120/53 L 97 08/12/18 12:00 08/13/18 18:00 08/13/18 14:10 08/13/18 17:46 08/13/18 13:10 Intake and Output: 08/13/18 08/14/18 18:59 06:59 Intake Total 1400 Balance 1400 - Medications Medications: Current Medications Acetaminophen (Tylenol 325mg Tab) 650 mg PO Q6H PRN PRN Reason: Pain, moderate (4-7) Last Admin: 08/12/18 20:46 Dose: 650 mg Albuterol/Ipratropium (Duoneb 3 Mg/0.5 Mg (3 Ml) Ud) 3 ml IH [id number] ANGELES Last Admin: 08/13/18 20:10 Dose: 3 ml Atorvastatin Calcium (Lipitor) 40 mg PO DIN [facility] Last Admin: 08/13/18 17:46 Dose: 40 mg Cholecalciferol (Vitamin D) 2,000 intlu PO DAILY [facility] Last Admin: 08/13/18 10:53 Dose: 2,000 intlu Diltiazem HCl (Cardizem) 60 mg PO TID [facility] Last Admin: 08/13/18 17:46 Dose: 60 mg Guaifenesin (Robitussin) 100 mg PO Q4H PRN PRN Reason: Cough Last Admin: 08/09/18 15:41 Dose: 100 mg Metronidazole (Flagyl) 500 mg in 100 mls @ 100 mls/hr IVPB Q8 [facility]; Protocol Last Admin: 08/13/18 13:22 Dose: 100 mls/hr Cefepime HCl (Maxipime 1gm) 1 gm in 100 mls @ 100 mls/hr IVPB Q12 [facility]; Protocol Last Admin: 08/13/18 10:54 Dose: 100 mls/hr Lactated Ringer's (Lactated Ringer's) 1,000 mls @ 100 mls/hr IV .Q10H [facility] Last Admin: 08/13/18 10:49 Dose: 100 mls/hr Insulin Human Regular (Humulin R Med) 0 units SC ACHS [facility]; Protocol Last Admin: 08/13/18 16:55 Dose: Not Given Lorazepam (Ativan) 0.25 mg PO Q6 PRN; 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 Reason: Anxiety Last Admin: 08/09/18 21:48 Dose: 0.25 mg Mesalamine (Pentasa) 500 mg PO QID [facility] Last Admin: 08/13/18 17:46 Dose: 500 mg Midodrine (Proamatine) 5 mg PO TID [facility] Last Admin: 08/13/18 18:12 Dose: 5 mg Ondansetron HCl (Zofran Inj) 4 mg IVP Q4H PRN PRN Reason: Nausea/Vomiting Last Admin: 08/06/18 06:39 Dose: 4 mg Pantoprazole Sodium (Protonix Ec Tab) 40 mg PO 0600 [facility] Last Admin: 08/13/18 05:03 Dose: 40 mg Prednisone (Prednisone Tab) 20 mg PO BID [facility] Last Admin: 08/13/18 17:46 Dose: 20 mg Quetiapine Fumarate (Seroquel) 12.5 mg PO HS PRN; 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 Reason: Agitation Last Admin: 08/12/18 23:10 Dose: 12.5 mg - Labs Labs: 08/13/18 16:51 08/13/18 16:51 PT 17.3 SECONDS (9.4-12.5) H 08/13/18 16:51 INR 1.50 08/13/18 16:51 APTT 36.3 Seconds (25.1-36.5) 08/13/18 16:51 Attending/Attestation - Attestation I have personally seen and examined this patient.: Yes I have fully participated in the care of the patient.: Yes I have reviewed all pertinent clinical information, including history, physical exam and plan: Yes Notes (Text): This is an addendum to GI progress report dictated by the GI Fellow.The patient was seen and examined earlier. Medical records, lab studies, imagings were reviewed. Last 24 hours events reviewed. Agreed with the above treatment plan as outlined in GI Fellow 's notes with the addition of the following no no episodes of bleeding per rectum Significant 08/13/18 21:23
[2018-08-13] MEDS: Lactated Ringer's 1,000 ML IV SCH (10:49)
[2018-08-13] MEDS: Cholecalciferol 1,000 INTLU TAB PO SCH (10:53)
[2018-08-13] MEDS: Cefepime 1gm in NS 100ml 1 GM/100 ML BAG IVPB SCH ×2 (10:54→21:45)
[2018-08-13] MEDS: Mesalamine ER Cap 500 MG PO SCH ×4 (11:00→21:45)
--- NOTE | 2018-08-13 13:57 | CP.CCUPN ---
<David Sun - Last Filed: 08/13/18 13:53> CCU Subjective - Physician Review Subjective (Free Text): David Sun, PGY1 ICU Progress Note for Dr. Manning Patient was seen and examined at bedside this morning. She is AAOx1 (person only). Patient is awake, follows commands, moves all extremities. Compared to previous encounters, patient expressed increased aphasia and impaired concentration. As a result, a proper ROS was unable to be obtained. Curbsided neurology during rounds; neuro team also expressed concerns about recent mental status. Afebrile overnight. Blood pressure was 138/70 with no hypotensive episodes overnight. Lugo was discontinued yesterday. Patient is on nasal cannula at 2L oxygen. Spoke to nursing staff, patient had two small bloody bowel movements overnight. In length discussion about patient's clinical status with daughter at bedside. CCU Objective - Vital Signs / Intake & Output Vital Signs (Last 4 hours): Vital Signs Pulse BP 08/13/18 10:53 96 H 115/68 Intake and Output (Last 8hrs): Intake & Output 08/12/18 08/13/18 08/13/18 22:59 06:59 14:59 Intake Total 1990 300 Output Total 220 50 Balance 1770 250 Intake: IV 1850 300 .9 Saline Bolus 1000 IVPB 200 PRBC 650 abx 300 Oral 140 Output: Gastric Amount 20 50 Right Nares 20 50 Urine 200 Urethral (Lugo) 200 Other: # Bowel Movements 2 - Physical Exam Head: Positive for: Atraumatic, Normocephalic Pupils: Positive for: PERRL Extroacular Muscles: Positive for: EOMI Mouth: Positive for: Moist Mucous Membranes Neck: Positive for: Normal Range of Motion. Negative for: Meningeal Signs Respiratory/Chest: Positive for: Clear to Auscultation. Negative for: Respiratory Distress, Wheezes, Rales, Rhonchi Cardiovascular: Positive for: Regular Rate and Rhythm, Normal S1, S2 Abdomen: Positive for: Normal Bowel Sounds. Negative for: Distention, Peritoneal Signs, Rebound, Mass/Organomegaly Lower Extremity: Positive for: Edema (Patient has +2 pitting edema bilateral lower extremities ), NORMAL PULSES. Negative for: CALF TENDERNESS, Cyanosis Skin: Positive for: Warm, Dry, Normal Color Psychiatric: Positive for: Alert. Negative for: Oriented x 3, Normal Insight, Normal Concentration - Medications Active Medications: Active Medications Generic Name Dose Route Start Last Admin Trade Name Freq PRN Reason Stop Dose Admin Acetaminophen 650 mg 08/09/18 21:57 08/12/18 20:46 Tylenol 325mg Tab PO 650 mg Q6H PRN Administration Pain, moderate (4-7) Albuterol/Ipratropium 3 ml 08/09/18 15:15 08/13/18 13:14 Duoneb 3 Mg/0.5 Mg (3 Ml) Ud IH 3 ml [id number] ANGELES Administration Atorvastatin Calcium 40 mg 07/30/18 17:00 08/12/18 17:23 Lipitor PO 40 mg DIN ANGELES Administration Cholecalciferol 2,000 intlu 07/29/18 10:00 08/13/18 10:53 Vitamin D PO 2,000 intlu DAILY ANGELES Administration Diltiazem HCl 60 mg 08/05/18 14:00 08/13/18 10:53 Cardizem PO 60 mg TID ANGELES Administration Guaifenesin 100 mg 08/09/18 15:30 08/09/18 15:41 Robitussin PO 100 mg Q4H PRN Administration Cough Metronidazole 500 mg in 100 mls @ 100 mls/hr 08/04/18 14:30 08/13/18 13:22 Flagyl IVPB 100 mls/hr Q8 ANGELES Administration Protocol Cefepime HCl 1 gm in 100 mls @ 100 mls/hr 08/06/18 10:00 08/13/18 10:54 Maxipime 1gm IVPB 100 mls/hr Q12 ANGELES Administration Protocol Lactated Ringer's 1,000 mls @ 100 mls/hr 08/13/18 10:45 08/13/18 10:49 Lactated Ringer's IV 100 mls/hr .Q10H ANGELES Administration Insulin Human Regular 0 units 07/28/18 22:00 08/13/18 12:00 Humulin R Med SC Not Given ACHS ANGELES Protocol Lorazepam 0.25 mg 08/03/18 10:23 08/09/18 21:48 Ativan PO 0.25 mg Q6 PRN Administration Anxiety Protocol Mesalamine 500 mg 08/05/18 10:00 08/13/18 11:05 Pentasa PO 500 mg QID ANGELES Administration Midodrine 5 mg 08/11/18 14:00 08/13/18 13:25 Proamatine PO 5 mg TID ANGELES Administration Ondansetron HCl 4 mg 08/04/18 12:59 08/06/18 06:39 Zofran Inj IVP 4 mg Q4H PRN Administration Nausea/Vomiting Pantoprazole Sodium 40 mg 07/29/18 06:00 08/13/18 05:03 Protonix Ec Tab PO 40 mg 0600 ANGELES Administration Prednisone 20 mg 08/09/18 18:00 08/13/18 13:23 Prednisone Tab PO 20 mg BID ANGELES Administration Quetiapine Fumarate 12.5 mg 08/04/18 12:46 08/12/18 23:10 Seroquel PO 12.5 mg HS PRN Administration Agitation Protocol - Patient Studies Lab Studies: Lab Studies 08/13/18 08/13/18 08/13/18 Range/Units 13:03 08:45 06:15 WBC (4.5-11.0) 10^3/uL RBC (3.5-6.1) 10^6/uL Hgb (12.0-16.0) g/dL Hct (36.0-48.0) % MCV (80.0-105.0) fl MCH (25.0-35.0) pg MCHC (31.0-37.0) g/dl RDW (11.5-14.5) % Plt Count (120.0-450.0) 10^3/uL MPV (7.0-11.0) fl Gran % (50.0-68.0) % Lymph % (Auto) (22.0-35.0) % [place] % (Auto) (1.0-6.0) % Eos % (Auto) (1.5-5.0) % Baso % (Auto) (0.0-3.0) % Gran # (1.4-6.5) Lymph # (Auto) (1.2-3.4) [place] # (Auto) (0.1-0.6) Eos # (Auto) (0.0-0.7) Baso # (Auto) (0.0-2.0) K/mm3 pO2 (30-55) mm/Hg VBG pH (7.32-7.43) VBG pCO2 (40-60) VBG HCO3 (21-28) mmol/l VBG Total CO2 (22-28) mmol.L VBG O2 Sat (Calc) (40-65) % VBG Base Excess (0.0-2.0) mmol/L VBG Potassium (3.6-5.2) mmol/L Sodium 133 (132-148) mmol/L Chloride 114 H (98-107) mmol/L Glucose (65-105) mg/dl Lactate (0.7-2.1) mmol/L FiO2 % Potassium 4.8 (3.6-5.0) mmol/L Carbon Dioxide 17 L (21-33) mmol/L Anion Gap 8 L (10-20) BUN 29 H (7-21) mg/dL Creatinine 1.3 H (0.7-1.2) mg/dl Est GFR ( Amer) 48 Est GFR (Non-Af Amer) 40 POC Glucose (mg/dL) 110 101 (65-110) mg/dL Random Glucose 103 (70-110) mg/dL Calcium 8.9 (8.4-10.5) mg/dL Phosphorus (2.5-4.5) mg/dL Magnesium (1.7-2.2) mg/dL Total Bilirubin 1.0 (0.2-1.3) mg/dL AST 43 H (14-36) U/L ALT 69 H (7-56) U/L Alkaline Phosphatase 459 H (38-126) U/L Total Protein 4.3 L (5.8-8.3) g/dL Albumin 1.7 L (3.0-4.8) g/dL Globulin 2.6 gm/dL Albumin/Globulin Ratio 0.6 L (1.1-1.8) Venous Blood Potassium (3.6-5.2) mmol/L Proteinase 3 (PR3) (<1.0) AI Myeloperoxidase Ab (<1.0) AI S.cerevisiae IgG Ab U S.cerevisiae IgA Ab U Blood Type Antibody Screen Crossmatch BBK History Checked 08/13/18 08/13/18 08/13/18 Range/Units 06:15 06:15 01:45 WBC 12.7 H (4.5-11.0) 10^3/uL RBC 4.50 (3.5-6.1) 10^6/uL Hgb 13.3 (12.0-16.0) g/dL Hct 39.1 (36.0-48.0) % MCV 86.9 (80.0-105.0) fl MCH 29.6 (25.0-35.0) pg MCHC 34.0 (31.0-37.0) g/dl RDW 18.5 H (11.5-14.5) % Plt Count 104 L (120.0-450.0) 10^3/uL MPV 9.9 (7.0-11.0) fl Gran % 88.9 H (50.0-68.0) % Lymph % (Auto) 6.1 L (22.0-35.0) % [place] % (Auto) 5.0 (1.0-6.0) % Eos % (Auto) 0.0 L (1.5-5.0) % Baso % (Auto) 0.0 (0.0-3.0) % Gran # 11.31 H (1.4-6.5) Lymph # (Auto) 0.8 L (1.2-3.4) [place] # (Auto) 0.6 (0.1-0.6) Eos # (Auto) 0.0 (0.0-0.7) Baso # (Auto) 0.00 (0.0-2.0) K/mm3 pO2 60 H (30-55) mm/Hg VBG pH 7.35 (7.32-7.43) VBG pCO2 32.0 L (40-60) VBG HCO3 17.7 L (21-28) mmol/l VBG Total CO2 18.7 L (22-28) mmol.L VBG O2 Sat (Calc) 94.5 H (40-65) % VBG Base Excess -6.8 L (0.0-2.0) mmol/L VBG Potassium 4.7 (3.6-5.2) mmol/L Sodium 132.0 133 (132-148) mmol/L Chloride 107.0 111 H (98-107) mmol/L Glucose 106 H (65-105) mg/dl Lactate 1.6 (0.7-2.1) mmol/L FiO2 21.0 % Potassium 5.0 (3.6-5.0) mmol/L Carbon Dioxide 17 L (21-33) mmol/L Anion Gap 10 (10-20) BUN 29 H (7-21) mg/dL Creatinine 1.2 (0.7-1.2) mg/dl Est GFR ( Amer) 53 Est GFR (Non-Af Amer) 43 POC Glucose (mg/dL) (65-110) mg/dL Random Glucose 107 (70-110) mg/dL Calcium 8.9 (8.4-10.5) mg/dL Phosphorus 2.9 (2.5-4.5) mg/dL Magnesium 2.0 (1.7-2.2) mg/dL Total Bilirubin 1.0 (0.2-1.3) mg/dL AST 39 H D (14-36) U/L ALT 72 H (7-56) U/L Alkaline Phosphatase 436 H (38-126) U/L Total Protein 4.3 L (5.8-8.3) g/dL Albumin 1.7 L (3.0-4.8) g/dL Globulin 2.6 gm/dL Albumin/Globulin Ratio 0.6 L (1.1-1.8) Venous Blood Potassium 4.7 (3.6-5.2) mmol/L Proteinase 3 (PR3) (<1.0) AI Myeloperoxidase Ab (<1.0) AI S.cerevisiae IgG Ab U S.cerevisiae IgA Ab U Blood Type Antibody Screen Crossmatch BBK History Checked 08/13/18 08/13/18 08/12/18 Range/Units 00:00 00:00 21:37 WBC 12.2 H (4.5-11.0) 10^3/uL RBC 4.59 (3.5-6.1) 10^6/uL Hgb 13.5 (12.0-16.0) g/dL Hct 40.0 (36.0-48.0) % MCV 87.1 (80.0-105.0) fl MCH 29.4 (25.0-35.0) pg MCHC 33.8 (31.0-37.0) g/dl RDW 18.4 H (11.5-14.5) % Plt Count 95 L (120.0-450.0) 10^3/uL MPV 10.2 (7.0-11.0) fl Gran % 90.7 H (50.0-68.0) % Lymph % (Auto) 5.3 L (22.0-35.0) % [place] % (Auto) 4.0 (1.0-6.0) % Eos % (Auto) 0.0 L (1.5-5.0) % Baso % (Auto) 0.0 (0.0-3.0) % Gran # 11.05 H (1.4-6.5) Lymph # (Auto) 0.7 L (1.2-3.4) [place] # (Auto) 0.5 (0.1-0.6) Eos # (Auto) 0.0 (0.0-0.7) Baso # (Auto) 0.00 (0.0-2.0) K/mm3 pO2 145 H (30-55) mm/Hg VBG pH 7.34 (7.32-7.43) VBG pCO2 32.0 L (40-60) VBG HCO3 17.3 L (21-28) mmol/l VBG Total CO2 18.3 L (22-28) mmol.L VBG O2 Sat (Calc) 99.3 H (40-65) % VBG Base Excess -7.4 L (0.0-2.0) mmol/L VBG Potassium 5.6 H (3.6-5.2) mmol/L Sodium 131.0 L (132-148) mmol/L Chloride 105.0 (98-107) mmol/L Glucose 108 H (65-105) mg/dl Lactate 2.1 (0.7-2.1) mmol/L FiO2 21.0 % Potassium (3.6-5.0) mmol/L Carbon Dioxide (21-33) mmol/L Anion Gap (10-20) BUN (7-21) mg/dL Creatinine (0.7-1.2) mg/dl Est GFR ( Amer) Est GFR (Non-Af Amer) POC Glucose (mg/dL) 98 (65-110) mg/dL Random Glucose (70-110) mg/dL Calcium (8.4-10.5) mg/dL Phosphorus (2.5-4.5) mg/dL Magnesium (1.7-2.2) mg/dL Total Bilirubin (0.2-1.3) mg/dL AST (14-36) U/L ALT (7-56) U/L Alkaline Phosphatase (38-126) U/L Total Protein (5.8-8.3) g/dL Albumin (3.0-4.8) g/dL Globulin gm/dL Albumin/Globulin Ratio (1.1-1.8) Venous Blood Potassium 5.6 H (3.6-5.2) mmol/L Proteinase 3 (PR3) (<1.0) AI Myeloperoxidase Ab (<1.0) AI S.cerevisiae IgG Ab U S.cerevisiae IgA Ab U Blood Type Antibody Screen Crossmatch BBK History Checked 08/12/18 08/12/18 08/12/18 Range/Units 18:25 18:25 16:37 WBC 11.4 H D (4.5-11.0) 10^3/uL RBC 4.43 (3.5-6.1) 10^6/uL Hgb 13.1 D (12.0-16.0) g/dL Hct 38.4 (36.0-48.0) % MCV 86.7 (80.0-105.0) fl MCH 29.6 (25.0-35.0) pg MCHC 34.1 (31.0-37.0) g/dl RDW 17.8 H (11.5-14.5) % Plt Count 89 L (120.0-450.0) 10^3/uL MPV 9.6 (7.0-11.0) fl Gran % (50.0-68.0) % Lymph % (Auto) (22.0-35.0) % [place] % (Auto) (1.0-6.0) % Eos % (Auto) (1.5-5.0) % Baso % (Auto) (0.0-3.0) % Gran # (1.4-6.5) Lymph # (Auto) (1.2-3.4) [place] # (Auto) (0.1-0.6) Eos # (Auto) (0.0-0.7) Baso # (Auto) (0.0-2.0) K/mm3 pO2 26 L (30-55) mm/Hg VBG pH 7.33 (7.32-7.43) VBG pCO2 37.0 L (40-60) VBG HCO3 19.5 L (21-28) mmol/l VBG Total CO2 20.6 L (22-28) mmol.L VBG O2 Sat (Calc) 57.4 (40-65) % VBG Base Excess -5.8 L (0.0-2.0) mmol/L VBG Potassium 4.7 (3.6-5.2) mmol/L Sodium 132.0 (132-148) mmol/L Chloride 106.0 (98-107) mmol/L Glucose 100 (65-105) mg/dl Lactate 2.2 H (0.7-2.1) mmol/L FiO2 21.0 % Potassium (3.6-5.0) mmol/L Carbon Dioxide (21-33) mmol/L Anion Gap (10-20) BUN (7-21) mg/dL Creatinine (0.7-1.2) mg/dl Est GFR ( Amer) Est GFR (Non-Af Amer) POC Glucose (mg/dL) 110 (65-110) mg/dL Random Glucose (70-110) mg/dL Calcium (8.4-10.5) mg/dL Phosphorus (2.5-4.5) mg/dL Magnesium (1.7-2.2) mg/dL Total Bilirubin (0.2-1.3) mg/dL AST (14-36) U/L ALT (7-56) U/L Alkaline Phosphatase (38-126) U/L Total Protein (5.8-8.3) g/dL Albumin (3.0-4.8) g/dL Globulin gm/dL Albumin/Globulin Ratio (1.1-1.8) Venous Blood Potassium 4.7 (3.6-5.2) mmol/L Proteinase 3 (PR3) (<1.0) AI Myeloperoxidase Ab (<1.0) AI S.cerevisiae IgG Ab U S.cerevisiae IgA Ab U Blood Type Antibody Screen Crossmatch BBK History Checked 08/12/18 08/12/18 08/11/18 Range/Units 11:17 10:30 23:37 WBC (4.5-11.0) 10^3/uL RBC (3.5-6.1) 10^6/uL Hgb (12.0-16.0) g/dL Hct (36.0-48.0) % MCV (80.0-105.0) fl MCH (25.0-35.0) pg MCHC (31.0-37.0) g/dl RDW (11.5-14.5) % Plt Count (120.0-450.0) 10^3/uL MPV (7.0-11.0) fl Gran % (50.0-68.0) % Lymph % (Auto) (22.0-35.0) % [place] % (Auto) (1.0-6.0) % Eos % (Auto) (1.5-5.0) % Baso % (Auto) (0.0-3.0) % Gran # (1.4-6.5) Lymph # (Auto) (1.2-3.4) [place] # (Auto) (0.1-0.6) Eos # (Auto) (0.0-0.7) Baso # (Auto) (0.0-2.0) K/mm3 pO2 (30-55) mm/Hg VBG pH (7.32-7.43) VBG pCO2 (40-60) VBG HCO3 (21-28) mmol/l VBG Total CO2 (22-28) mmol.L VBG O2 Sat (Calc) (40-65) % VBG Base Excess (0.0-2.0) mmol/L VBG Potassium (3.6-5.2) mmol/L Sodium (132-148) mmol/L Chloride (98-107) mmol/L Glucose (65-105) mg/dl Lactate (0.7-2.1) mmol/L FiO2 % Potassium (3.6-5.0) mmol/L Carbon Dioxide (21-33) mmol/L Anion Gap (10-20) BUN (7-21) mg/dL Creatinine (0.7-1.2) mg/dl Est GFR ( Amer) Est GFR (Non-Af Amer) POC Glucose (mg/dL) 102 108 (65-110) mg/dL Random Glucose (70-110) mg/dL Calcium (8.4-10.5) mg/dL Phosphorus (2.5-4.5) mg/dL Magnesium (1.7-2.2) mg/dL Total Bilirubin (0.2-1.3) mg/dL AST (14-36) U/L ALT (7-56) U/L Alkaline Phosphatase (38-126) U/L Total Protein (5.8-8.3) g/dL Albumin (3.0-4.8) g/dL Globulin gm/dL Albumin/Globulin Ratio (1.1-1.8) Venous Blood Potassium (3.6-5.2) mmol/L Proteinase 3 (PR3) (<1.0) AI Myeloperoxidase Ab (<1.0) AI S.cerevisiae IgG Ab U S.cerevisiae IgA Ab U Blood Type A POSITIVE Antibody Screen Negative Crossmatch See Detail BBK History Checked Patient has bt 08/10/18 08/10/18 Range/Units 05:45 05:00 WBC (4.5-11.0) 10^3/uL RBC (3.5-6.1) 10^6/uL Hgb (12.0-16.0) g/dL Hct (36.0-48.0) % MCV (80.0-105.0) fl MCH (25.0-35.0) pg MCHC (31.0-37.0) g/dl RDW (11.5-14.5) % Plt Count (120.0-450.0) 10^3/uL MPV (7.0-11.0) fl Gran % (50.0-68.0) % Lymph % (Auto) (22.0-35.0) % [place] % (Auto) (1.0-6.0) % Eos % (Auto) (1.5-5.0) % Baso % (Auto) (0.0-3.0) % Gran # (1.4-6.5) Lymph # (Auto) (1.2-3.4) [place] # (Auto) (0.1-0.6) Eos # (Auto) (0.0-0.7) Baso # (Auto) (0.0-2.0) K/mm3 pO2 (30-55) mm/Hg VBG pH (7.32-7.43) VBG pCO2 (40-60) VBG HCO3 (21-28) mmol/l VBG Total CO2 (22-28) mmol.L VBG O2 Sat (Calc) (40-65) % VBG Base Excess (0.0-2.0) mmol/L VBG Potassium (3.6-5.2) mmol/L Sodium (132-148) mmol/L Chloride (98-107) mmol/L Glucose (65-105) mg/dl Lactate (0.7-2.1) mmol/L FiO2 % Potassium (3.6-5.0) mmol/L Carbon Dioxide (21-33) mmol/L Anion Gap (10-20) BUN (7-21) mg/dL Creatinine (0.7-1.2) mg/dl Est GFR ( Amer) Est GFR (Non-Af Amer) POC Glucose (mg/dL) (65-110) mg/dL Random Glucose (70-110) mg/dL Calcium (8.4-10.5) mg/dL Phosphorus (2.5-4.5) mg/dL Magnesium (1.7-2.2) mg/dL Total Bilirubin (0.2-1.3) mg/dL AST (14-36) U/L ALT (7-56) U/L Alkaline Phosphatase (38-126) U/L Total Protein (5.8-8.3) g/dL Albumin (3.0-4.8) g/dL Globulin gm/dL Albumin/Globulin Ratio (1.1-1.8) Venous Blood Potassium (3.6-5.2) mmol/L Proteinase 3 (PR3) <1.0 <1.0 (<1.0) AI Myeloperoxidase Ab <1.0 <1.0 (<1.0) AI S.cerevisiae IgG Ab 22.2 H U S.cerevisiae IgA Ab 35.8 H U Blood Type Antibody Screen Crossmatch BBK History Checked Laboratory Results - last 24 hr 08/10/18 08/10/18 08/11/18 05:00 05:45 23:37 WBC RBC Hgb Hct MCV MCH MCHC RDW Plt Count MPV Gran % Lymph % (Auto) [place] % (Auto) Eos % (Auto) Baso % (Auto) Gran # Lymph # (Auto) [place] # (Auto) Eos # (Auto) Baso # (Auto) pO2 VBG pH VBG pCO2 VBG HCO3 VBG Total CO2 VBG O2 Sat (Calc) VBG Base Excess VBG Potassium Sodium Chloride Glucose Lactate FiO2 Potassium Carbon Dioxide Anion Gap BUN Creatinine Est GFR ( Amer) Est GFR (Non-Af Amer) POC Glucose (mg/dL) 108 Random Glucose Calcium Phosphorus Magnesium Total Bilirubin AST ALT Alkaline Phosphatase Total Protein Albumin Globulin Albumin/Globulin Ratio Venous Blood Potassium Proteinase 3 (PR3) <1.0 <1.0 Myeloperoxidase Ab <1.0 <1.0 S.cerevisiae IgG Ab 22.2 H S.cerevisiae IgA Ab 35.8 H Blood Type Antibody Screen Crossmatch BBK History Checked 08/12/18 08/12/18 08/12/18 10:30 11:17 16:37 WBC RBC Hgb Hct MCV MCH MCHC RDW Plt Count MPV Gran % Lymph % (Auto) [place] % (Auto) Eos % (Auto) Baso % (Auto) Gran # Lymph # (Auto) [place] # (Auto) Eos # (Auto) Baso # (Auto) pO2 VBG pH VBG pCO2 VBG HCO3 VBG Total CO2 VBG O2 Sat (Calc) VBG Base Excess VBG Potassium Sodium Chloride Glucose Lactate FiO2 Potassium Carbon Dioxide Anion Gap BUN Creatinine Est GFR ( Amer) Est GFR (Non-Af Amer) POC Glucose (mg/dL) 102 110 Random Glucose Calcium Phosphorus Magnesium Total Bilirubin AST ALT Alkaline Phosphatase Total Protein Albumin Globulin Albumin/Globulin Ratio Venous Blood Potassium Proteinase 3 (PR3) Myeloperoxidase Ab S.cerevisiae IgG Ab S.cerevisiae IgA Ab Blood Type A POSITIVE Antibody Screen Negative Crossmatch See Detail BBK History Checked Patient has bt 08/12/18 08/12/18 08/12/18 18:25 18:25 21:37 WBC 11.4 H D RBC 4.43 Hgb 13.1 D Hct 38.4 MCV 86.7 MCH 29.6 MCHC 34.1 RDW 17.8 H Plt Count 89 L MPV 9.6 Gran % Lymph % (Auto) [place] % (Auto) Eos % (Auto) Baso % (Auto) Gran # Lymph # (Auto) [place] # (Auto) Eos # (Auto) Baso # (Auto) pO2 26 L VBG pH 7.33 VBG pCO2 37.0 L VBG HCO3 19.5 L VBG Total CO2 20.6 L VBG O2 Sat (Calc) 57.4 VBG Base Excess -5.8 L VBG Potassium 4.7 Sodium 132.0 Chloride 106.0 Glucose 100 Lactate 2.2 H FiO2 21.0 Potassium Carbon Dioxide Anion Gap BUN Creatinine Est GFR ( Amer) Est GFR (Non-Af Amer) POC Glucose (mg/dL) 98 Random Glucose Calcium Phosphorus Magnesium Total Bilirubin AST ALT Alkaline Phosphatase Total Protein Albumin Globulin Albumin/Globulin Ratio Venous Blood Potassium 4.7 Proteinase 3 (PR3) Myeloperoxidase Ab S.cerevisiae IgG Ab S.cerevisiae IgA Ab Blood Type Antibody Screen Crossmatch BBK History Checked 08/13/18 08/13/18 08/13/18 00:00 00:00 01:45 WBC 12.2 H RBC 4.59 Hgb 13.5 Hct 40.0 MCV 87.1 MCH 29.4 MCHC 33.8 RDW 18.4 H Plt Count 95 L MPV 10.2 Gran % 90.7 H Lymph % (Auto) 5.3 L [place] % (Auto) 4.0 Eos % (Auto) 0.0 L Baso % (Auto) 0.0 Gran # 11.05 H Lymph # (Auto) 0.7 L [place] # (Auto) 0.5 Eos # (Auto) 0.0 Baso # (Auto) 0.00 pO2 145 H VBG pH 7.34 VBG pCO2 32.0 L VBG HCO3 17.3 L VBG Total CO2 18.3 L VBG O2 Sat (Calc) 99.3 H VBG Base Excess -7.4 L VBG Potassium 5.6 H Sodium 131.0 L 133 Chloride 105.0 111 H Glucose 108 H Lactate 2.1 FiO2 21.0 Potassium 5.0 Carbon Dioxide 17 L Anion Gap 10 BUN 29 H Creatinine 1.2 Est GFR ( Amer) 53 Est GFR (Non-Af Amer) 43 POC Glucose (mg/dL) Random Glucose 107 Calcium 8.9 Phosphorus 2.9 Magnesium 2.0 Total Bilirubin 1.0 AST 39 H D ALT 72 H Alkaline Phosphatase 436 H Total Protein 4.3 L Albumin 1.7 L Globulin 2.6 Albumin/Globulin Ratio 0.6 L Venous Blood Potassium 5.6 H Proteinase 3 (PR3) Myeloperoxidase Ab S.cerevisiae IgG Ab S.cerevisiae IgA Ab Blood Type Antibody Screen Crossmatch BBK History Checked 08/13/18 08/13/18 08/13/18 06:15 06:15 06:15 WBC 12.7 H RBC 4.50 Hgb 13.3 Hct 39.1 MCV 86.9 MCH 29.6 MCHC 34.0 RDW 18.5 H Plt Count 104 L MPV 9.9 Gran % 88.9 H Lymph % (Auto) 6.1 L [place] % (Auto) 5.0 Eos % (Auto) 0.0 L Baso % (Auto) 0.0 Gran # 11.31 H Lymph # (Auto) 0.8 L [place] # (Auto) 0.6 Eos # (Auto) 0.0 Baso # (Auto) 0.00 pO2 60 H VBG pH 7.35 VBG pCO2 32.0 L VBG HCO3 17.7 L VBG Total CO2 18.7 L VBG O2 Sat (Calc) 94.5 H VBG Base Excess -6.8 L VBG Potassium 4.7 Sodium 132.0 133 Chloride 107.0 114 H Glucose 106 H Lactate 1.6 FiO2 21.0 Potassium 4.8 Carbon Dioxide 17 L Anion Gap 8 L BUN 29 H Creatinine 1.3 H Est GFR ( Amer) 48 Est GFR (Non-Af Amer) 40 POC Glucose (mg/dL) Random Glucose 103 Calcium 8.9 Phosphorus Magnesium Total Bilirubin 1.0 AST 43 H ALT 69 H Alkaline Phosphatase 459 H Total Protein 4.3 L Albumin 1.7 L Globulin 2.6 Albumin/Globulin Ratio 0.6 L Venous Blood Potassium 4.7 Proteinase 3 (PR3) Myeloperoxidase Ab S.cerevisiae IgG Ab S.cerevisiae IgA Ab Blood Type Antibody Screen Crossmatch BBK History Checked 08/13/18 08/13/18 08:45 13:03 WBC RBC Hgb Hct MCV MCH MCHC RDW Plt Count MPV Gran % Lymph % (Auto) [place] % (Auto) Eos % (Auto) Baso % (Auto) Gran # Lymph # (Auto) [place] # (Auto) Eos # (Auto) Baso # (Auto) pO2 VBG pH VBG pCO2 VBG HCO3 VBG Total CO2 VBG O2 Sat (Calc) VBG Base Excess VBG Potassium Sodium Chloride Glucose Lactate FiO2 Potassium Carbon Dioxide Anion Gap BUN Creatinine Est GFR ( Amer) Est GFR (Non-Af Amer) POC Glucose (mg/dL) 101 110 Random Glucose Calcium Phosphorus Magnesium Total Bilirubin AST ALT Alkaline Phosphatase Total Protein Albumin Globulin Albumin/Globulin Ratio Venous Blood Potassium Proteinase 3 (PR3) Myeloperoxidase Ab S.cerevisiae IgG Ab S.cerevisiae IgA Ab Blood Type Antibody Screen Crossmatch BBK History Checked Fingerstick Blood Sugar Results: 110 Critical Care Progress Note - Extremities/Vascular Does the Patient have a Central Venous Catheter?: No Does the Patient need a Central Venous Catheter?: No Does the Patient have a Lugo Catheter?: No Does the Patient need a Lug[place] Catheter?: No - Prophylaxis GI Prophylaxis GI: PPI - Prophylaxis DVT Prophylaxis DVT: SCDs - Nutrition Nutrition: Nutrition Category Date Time Status Liquid Diet [DIET] Diets 08/13/18 Lunch Ordered Assessment/Plan - Assessment and Plan (Free Text) Assessment: Patient is a 77 y/o F with a PMHx HTN, DMII, JOSE, Crohn's disease, dementia and now with admission diagnosis of new watershed stroke, NSTEMI - elevated troponins 2/2 stroke, and new onset atrial fibrillation with RVR who presented to the ICU with multiple episodes of hematochezia. Plan: Neuro/Psych - AAOx1 with decline in mental status; MRI Brain ordered to assess for a possible repeat stroke - Neuro recs appreciated - c/w seroquel 12.5mg qHS as per psych recommendations - Patient presented for delirium 2/2 new watershed stroke - c/w PT/OT Cardiovascular - Maintain normal blood pressure to prevent recurrent watershed infarcts - Continue to hold Eliquis and Aspirin due to rectal bleed and stroke - c/w midodrine 5mg PO TID for blood pressure support - c/w Lipitor - Episode of Afib with RVR prior to arrival to the unit - NSTEMI - troponins elevated 2/2 stroke - Maintain normotensive Pulmonary - Maintain O2 sat >90% - Resting comfortably on room air; no signs of respiratory distress Gastrointestinal - Advance diet as per GI; clear liquids - Small bloody bowel movements x2 overnight - GI recs appreciated: avoid NOACs. If GI bleed persists, recommend a repeat bleeding scan. - Flex sigmoidoscopy (08/08) revealed active Crohns with ulcerations; EGD was essentially negative - c/w mesalamine, rowasa enemas, prednisone 20mg BID, and flagyl per GI recs - Bleeding scan (08/05): no evidence of active GI bleed Renal: - switched maintenance IVF from NS to LR given patient's hyperchloremia and its effect on the kidneys - Creatinine was slightly increased to 1.3 today Infectious disease - completed cefepime and flagyl day # 10 for pancolitis 2/2 Crohns flare. Consider discontinuation of antibiotics - ID on consult. Recs appreciated. - C. Diff neg, stool cx neg Heme - s/p x2 pRBC transfusions on 08/12 (Total transfusions x4 pRBCs during hospital course); Hgb is now 13.3, stable - f/u repeat cbc - f/u repeat coag profile - H/H stable DVT ppx: SCDs GI ppx: PTX 40mg PO daily Palliative Care is on board. Patient is DNR/DNI. Dispo: continue to monitor patient in the ICU. Pending Brain MRI today. Case was discussed and reviewed with Attending Physician, Dr. Manning <Mukul Manning - Last Filed: 08/13/18 16:17> CCU Objective - Vital Signs / Intake & Output Vital Signs (Last 4 hours): Vital Signs Pulse Resp BP Pulse Ox 08/13/18 14:10 102 H 19 08/13/18 14:01 103 H 24 133/112 H 08/13/18 14:00 104 H 19 08/13/18 13:50 105 H 15 08/13/18 13:40 101 H 23 08/13/18 13:30 100 H 21 08/13/18 13:20 99 H 17 08/13/18 13:10 97 H 20 97 08/13/18 13:00 104 H 20 117/89 97 08/13/18 12:50 109 H 21 98 08/13/18 12:40 102 H 19 97 08/13/18 12:30 99 H 19 96 08/13/18 12:20 98 H 17 97 Intake and Output (Last 8hrs): Intake & Output 08/13/18 08/13/18 08/13/18 06:59 14:59 22:59 Intake Total 300 Output Total 50 Balance 250 Intake: IV 300 abx 300 Output: Gastric Amount 50 Right Nares 50 Other: # Bowel Movements 2 - Medications Active Medications: Active Medications Generic Name Dose Route Start Last Admin Trade Name Freq PRN Reason Stop Dose Admin Acetaminophen 650 mg 08/09/18 21:57 08/12/18 20:46 Tylenol 325mg Tab PO 650 mg Q6H PRN Administration Pain, moderate (4-7) Albuterol/Ipratropium 3 ml 08/09/18 15:15 08/13/18 13:14 Duoneb 3 Mg/0.5 Mg (3 Ml) Ud IH 3 ml [id number] ANGELES Administration Atorvastatin Calcium 40 mg 07/30/18 17:00 08/12/18 17:23 Lipitor PO 40 mg DIN ANGELES Administration Cholecalciferol 2,000 intlu 07/29/18 10:00 08/13/18 10:53 Vitamin D PO 2,000 intlu DAILY ANGELES Administration Diltiazem HCl 60 mg 08/05/18 14:00 08/13/18 10:53 Cardizem PO 60 mg TID ANGELES Administration Guaifenesin 100 mg 08/09/18 15:30 08/09/18 15:41 Robitussin PO 100 mg Q4H PRN Administration Cough Metronidazole 500 mg in 100 mls @ 100 mls/hr 08/04/18 14:30 08/13/18 13:22 Flagyl IVPB 100 mls/hr Q8 ANGELES Administration Protocol Cefepime HCl 1 gm in 100 mls @ 100 mls/hr 08/06/18 10:00 08/13/18 10:54 Maxipime 1gm IVPB 100 mls/hr Q12 ANGELES Administration Protocol Lactated Ringer's 1,000 mls @ 100 mls/hr 08/13/18 10:45 08/13/18 10:49 Lactated Ringer's IV 100 mls/hr .Q10H ANGELES Administration Insulin Human Regular 0 units 07/28/18 22:00 08/13/18 12:00 Humulin R Med SC Not Given ACHS ANGELES Protocol Lorazepam 0.25 mg 08/03/18 10:23 08/09/18 21:48 Ativan PO 0.25 mg Q6 PRN Administration Anxiety Protocol Mesalamine 500 mg 08/05/18 10:00 08/13/18 11:05 Pentasa PO 500 mg QID ANGELES Administration Midodrine 5 mg 08/11/18 14:00 08/13/18 13:25 Proamatine PO 5 mg TID ANGELES Administration Ondansetron HCl 4 mg 08/04/18 12:59 08/06/18 06:39 Zofran Inj IVP 4 mg Q4H PRN Administration Nausea/Vomiting Pantoprazole Sodium 40 mg 07/29/18 06:00 08/13/18 05:03 Protonix Ec Tab PO 40 mg 0600 ANGELES Administration Prednisone 20 mg 08/09/18 18:00 08/13/18 13:23 Prednisone Tab PO 20 mg BID ANGELES Administration Quetiapine Fumarate 12.5 mg 08/04/18 12:46 08/12/18 23:10 Seroquel PO 12.5 mg HS PRN Administration Agitation Protocol - Patient Studies Lab Studies: Lab Studies 08/13/18 08/13/18 08/13/18 Range/Units 13:03 08:45 06:15 WBC (4.5-11.0) 10^3/uL RBC (3.5-6.1) 10^6/uL Hgb (12.0-16.0) g/dL Hct (36.0-48.0) % MCV (80.0-105.0) fl MCH (25.0-35.0) pg MCHC (31.0-37.0) g/dl RDW (11.5-14.5) % Plt Count (120.0-450.0) 10^3/uL MPV (7.0-11.0) fl Gran % (50.0-68.0) % Lymph % (Auto) (22.0-35.0) % [place] % (Auto) (1.0-6.0) % Eos % (Auto) (1.5-5.0) % Baso % (Auto) (0.0-3.0) % Gran # (1.4-6.5) Lymph # (Auto) (1.2-3.4) [place] # (Auto) (0.1-0.6) Eos # (Auto) (0.0-0.7) Baso # (Auto) (0.0-2.0) K/mm3 pO2 (30-55) mm/Hg VBG pH (7.32-7.43) VBG pCO2 (40-60) VBG HCO3 (21-28) mmol/l VBG Total CO2 (22-28) mmol.L VBG O2 Sat (Calc) (40-65) % VBG Base Excess (0.0-2.0) mmol/L VBG Potassium (3.6-5.2) mmol/L Sodium 133 (132-148) mmol/L Chloride 114 H (98-107) mmol/L Glucose (65-105) mg/dl Lactate (0.7-2.1) mmol/L FiO2 % Potassium 4.8 (3.6-5.0) mmol/L Carbon Dioxide 17 L (21-33) mmol/L Anion Gap 8 L (10-20) BUN 29 H (7-21) mg/dL Creatinine 1.3 H (0.7-1.2) mg/dl Est GFR ( Amer) 48 Est GFR (Non-Af Amer) 40 POC Glucose (mg/dL) 110 101 (65-110) mg/dL Random Glucose 103 (70-110) mg/dL Calcium 8.9 (8.4-10.5) mg/dL Phosphorus (2.5-4.5) mg/dL Magnesium (1.7-2.2) mg/dL Total Bilirubin 1.0 (0.2-1.3) mg/dL AST 43 H (14-36) U/L ALT 69 H (7-56) U/L Alkaline Phosphatase 459 H (38-126) U/L Total Protein 4.3 L (5.8-8.3) g/dL Albumin 1.7 L (3.0-4.8) g/dL Globulin 2.6 gm/dL Albumin/Globulin Ratio 0.6 L (1.1-1.8) Venous Blood Potassium (3.6-5.2) mmol/L Proteinase 3 (PR3) (<1.0) AI Myeloperoxidase Ab (<1.0) AI S.cerevisiae IgG Ab U S.cerevisiae IgA Ab U Blood Type Antibody Screen Crossmatch BBK History Checked 08/13/18 08/13/18 08/13/18 Range/Units 06:15 06:15 01:45 WBC 12.7 H (4.5-11.0) 10^3/uL RBC 4.50 (3.5-6.1) 10^6/uL Hgb 13.3 (12.0-16.0) g/dL Hct 39.1 (36.0-48.0) % MCV 86.9 (80.0-105.0) fl MCH 29.6 (25.0-35.0) pg MCHC 34.0 (31.0-37.0) g/dl RDW 18.5 H (11.5-14.5) % Plt Count 104 L (120.0-450.0) 10^3/uL MPV 9.9 (7.0-11.0) fl Gran % 88.9 H (50.0-68.0) % Lymph % (Auto) 6.1 L (22.0-35.0) % [place] % (Auto) 5.0 (1.0-6.0) % Eos % (Auto) 0.0 L (1.5-5.0) % Baso % (Auto) 0.0 (0.0-3.0) % Gran # 11.31 H (1.4-6.5) Lymph # (Auto) 0.8 L (1.2-3.4) [place] # (Auto) 0.6 (0.1-0.6) Eos # (Auto) 0.0 (0.0-0.7) Baso # (Auto) 0.00 (0.0-2.0) K/mm3 pO2 60 H (30-55) mm/Hg VBG pH 7.35 (7.32-7.43) VBG pCO2 32.0 L (40-60) VBG HCO3 17.7 L (21-28) mmol/l VBG Total CO2 18.7 L (22-28) mmol.L VBG O2 Sat (Calc) 94.5 H (40-65) % VBG Base Excess -6.8 L (0.0-2.0) mmol/L VBG Potassium 4.7 (3.6-5.2) mmol/L Sodium 132.0 133 (132-148) mmol/L Chloride 107.0 111 H (98-107) mmol/L Glucose 106 H (65-105) mg/dl Lactate 1.6 (0.7-2.1) mmol/L FiO2 21.0 % Potassium 5.0 (3.6-5.0) mmol/L Carbon Dioxide 17 L (21-33) mmol/L Anion Gap 10 (10-20) BUN 29 H (7-21) mg/dL Creatinine 1.2 (0.7-1.2) mg/dl Est GFR ( Amer) 53 Est GFR (Non-Af Amer) 43 POC Glucose (mg/dL) (65-110) mg/dL Random Glucose 107 (70-110) mg/dL Calcium 8.9 (8.4-10.5) mg/dL Phosphorus 2.9 (2.5-4.5) mg/dL Magnesium 2.0 (1.7-2.2) mg/dL Total Bilirubin 1.0 (0.2-1.3) mg/dL AST 39 H D (14-36) U/L ALT 72 H (7-56) U/L Alkaline Phosphatase 436 H (38-126) U/L Total Protein 4.3 L (5.8-8.3) g/dL Albumin 1.7 L (3.0-4.8) g/dL Globulin 2.6 gm/dL Albumin/Globulin Ratio 0.6 L (1.1-1.8) Venous Blood Potassium 4.7 (3.6-5.2) mmol/L Proteinase 3 (PR3) (<1.0) AI Myeloperoxidase Ab (<1.0) AI S.cerevisiae IgG Ab U S.cerevisiae IgA Ab U Blood Type Antibody Screen Crossmatch BBK History Checked 08/13/18 08/13/18 08/12/18 Range/Units 00:00 00:00 21:37 WBC 12.2 H (4.5-11.0) 10^3/uL RBC 4.59 (3.5-6.1) 10^6/uL Hgb 13.5 (12.0-16.0) g/dL Hct 40.0 (36.0-48.0) % MCV 87.1 (80.0-105.0) fl MCH 29.4 (25.0-35.0) pg MCHC 33.8 (31.0-37.0) g/dl RDW 18.4 H (11.5-14.5) % Plt Count 95 L (120.0-450.0) 10^3/uL MPV 10.2 (7.0-11.0) fl Gran % 90.7 H (50.0-68.0) % Lymph % (Auto) 5.3 L (22.0-35.0) % [place] % (Auto) 4.0 (1.0-6.0) % Eos % (Auto) 0.0 L (1.5-5.0) % Baso % (Auto) 0.0 (0.0-3.0) % Gran # 11.05 H (1.4-6.5) Lymph # (Auto) 0.7 L (1.2-3.4) [place] # (Auto) 0.5 (0.1-0.6) Eos # (Auto) 0.0 (0.0-0.7) Baso # (Auto) 0.00 (0.0-2.0) K/mm3 pO2 145 H (30-55) mm/Hg VBG pH 7.34 (7.32-7.43) VBG pCO2 32.0 L (40-60) VBG HCO3 17.3 L (21-28) mmol/l VBG Total CO2 18.3 L (22-28) mmol.L VBG O2 Sat (Calc) 99.3 H (40-65) % VBG Base Excess -7.4 L (0.0-2.0) mmol/L VBG Potassium 5.6 H (3.6-5.2) mmol/L Sodium 131.0 L (132-148) mmol/L Chloride 105.0 (98-107) mmol/L Glucose 108 H (65-105) mg/dl Lactate 2.1 (0.7-2.1) mmol/L FiO2 21.0 % Potassium (3.6-5.0) mmol/L Carbon Dioxide (21-33) mmol/L Anion Gap (10-20) BUN (7-21) mg/dL Creatinine (0.7-1.2) mg/dl Est GFR ( Amer) Est GFR (Non-Af Amer) POC Glucose (mg/dL) 98 (65-110) mg/dL Random Glucose (70-110) mg/dL Calcium (8.4-10.5) mg/dL Phosphorus (2.5-4.5) mg/dL Magnesium (1.7-2.2) mg/dL Total Bilirubin (0.2-1.3) mg/dL AST (14-36) U/L ALT (7-56) U/L Alkaline Phosphatase (38-126) U/L Total Protein (5.8-8.3) g/dL Albumin (3.0-4.8) g/dL Globulin gm/dL Albumin/Globulin Ratio (1.1-1.8) Venous Blood Potassium 5.6 H (3.6-5.2) mmol/L Proteinase 3 (PR3) (<1.0) AI Myeloperoxidase Ab (<1.0) AI S.cerevisiae IgG Ab U S.cerevisiae IgA Ab U Blood Type Antibody Screen Crossmatch BBK History Checked 08/12/18 08/12/18 08/12/18 Range/Units 18:25 18:25 16:37 WBC 11.4 H D (4.5-11.0) 10^3/uL RBC 4.43 (3.5-6.1) 10^6/uL Hgb 13.1 D (12.0-16.0) g/dL Hct 38.4 (36.0-48.0) % MCV 86.7 (80.0-105.0) fl MCH 29.6 (25.0-35.0) pg MCHC 34.1 (31.0-37.0) g/dl RDW 17.8 H (11.5-14.5) % Plt Count 89 L (120.0-450.0) 10^3/uL MPV 9.6 (7.0-11.0) fl Gran % (50.0-68.0) % Lymph % (Auto) (22.0-35.0) % [place] % (Auto) (1.0-6.0) % Eos % (Auto) (1.5-5.0) % Baso % (Auto) (0.0-3.0) % Gran # (1.4-6.5) Lymph # (Auto) (1.2-3.4) [place] # (Auto) (0.1-0.6) Eos # (Auto) (0.0-0.7) Baso # (Auto) (0.0-2.0) K/mm3 pO2 26 L (30-55) mm/Hg VBG pH 7.33 (7.32-7.43) VBG pCO2 37.0 L (40-60) VBG HCO3 19.5 L (21-28) mmol/l VBG Total CO2 20.6 L (22-28) mmol.L VBG O2 Sat (Calc) 57.4 (40-65) % VBG Base Excess -5.8 L (0.0-2.0) mmol/L VBG Potassium 4.7 (3.6-5.2) mmol/L Sodium 132.0 (132-148) mmol/L Chloride 106.0 (98-107) mmol/L Glucose 100 (65-105) mg/dl Lactate 2.2 H (0.7-2.1) mmol/L FiO2 21.0 % Potassium (3.6-5.0) mmol/L Carbon Dioxide (21-33) mmol/L Anion Gap (10-20) BUN (7-21) mg/dL Creatinine (0.7-1.2) mg/dl Est GFR ( Amer) Est GFR (Non-Af Amer) POC Glucose (mg/dL) 110 (65-110) mg/dL Random Glucose (70-110) mg/dL Calcium (8.4-10.5) mg/dL Phosphorus (2.5-4.5) mg/dL Magnesium (1.7-2.2) mg/dL Total Bilirubin (0.2-1.3) mg/dL AST (14-36) U/L ALT (7-56) U/L Alkaline Phosphatase (38-126) U/L Total Protein (5.8-8.3) g/dL Albumin (3.0-4.8) g/dL Globulin gm/dL Albumin/Globulin Ratio (1.1-1.8) Venous Blood Potassium 4.7 (3.6-5.2) mmol/L Proteinase 3 (PR3) (<1.0) AI Myeloperoxidase Ab (<1.0) AI S.cerevisiae IgG Ab U S.cerevisiae IgA Ab U Blood Type Antibody Screen Crossmatch BBK History Checked 08/12/18 08/12/18 08/11/18 Range/Units 11:17 10:30 23:37 WBC (4.5-11.0) 10^3/uL RBC (3.5-6.1) 10^6/uL Hgb (12.0-16.0) g/dL Hct (36.0-48.0) % MCV (80.0-105.0) fl MCH (25.0-35.0) pg MCHC (31.0-37.0) g/dl RDW (11.5-14.5) % Plt Count (120.0-450.0) 10^3/uL MPV (7.0-11.0) fl Gran % (50.0-68.0) % Lymph % (Auto) (22.0-35.0) % [place] % (Auto) (1.0-6.0) % Eos % (Auto) (1.5-5.0) % Baso % (Auto) (0.0-3.0) % Gran # (1.4-6.5) Lymph # (Auto) (1.2-3.4) [place] # (Auto) (0.1-0.6) Eos # (Auto) (0.0-0.7) Baso # (Auto) (0.0-2.0) K/mm3 pO2 (30-55) mm/Hg VBG pH (7.32-7.43) VBG pCO2 (40-60) VBG HCO3 (21-28) mmol/l VBG Total CO2 (22-28) mmol.L VBG O2 Sat (Calc) (40-65) % VBG Base Excess (0.0-2.0) mmol/L VBG Potassium (3.6-5.2) mmol/L Sodium (132-148) mmol/L Chloride (98-107) mmol/L Glucose (65-105) mg/dl Lactate (0.7-2.1) mmol/L FiO2 % Potassium (3.6-5.0) mmol/L Carbon Dioxide (21-33) mmol/L Anion Gap (10-20) BUN (7-21) mg/dL Creatinine (0.7-1.2) mg/dl Est GFR ( Amer) Est GFR (Non-Af Amer) POC Glucose (mg/dL) 102 108 (65-110) mg/dL Random Glucose (70-110) mg/dL Calcium (8.4-10.5) mg/dL Phosphorus (2.5-4.5) mg/dL Magnesium (1.7-2.2) mg/dL Total Bilirubin (0.2-1.3) mg/dL AST (14-36) U/L ALT (7-56) U/L Alkaline Phosphatase (38-126) U/L Total Protein (5.8-8.3) g/dL Albumin (3.0-4.8) g/dL Globulin gm/dL Albumin/Globulin Ratio (1.1-1.8) Venous Blood Potassium (3.6-5.2) mmol/L Proteinase 3 (PR3) (<1.0) AI Myeloperoxidase Ab (<1.0) AI S.cerevisiae IgG Ab U S.cerevisiae IgA Ab U Blood Type A POSITIVE Antibody Screen Negative Crossmatch See Detail BBK History Checked Patient has bt 08/10/18 08/10/18 Range/Units 05:45 05:00 WBC (4.5-11.0) 10^3/uL RBC (3.5-6.1) 10^6/uL Hgb (12.0-16.0) g/dL Hct (36.0-48.0) % MCV (80.0-105.0) fl MCH (25.0-35.0) pg MCHC (31.0-37.0) g/dl RDW (11.5-14.5) % Plt Count (120.0-450.0) 10^3/uL MPV (7.0-11.0) fl Gran % (50.0-68.0) % Lymph % (Auto) (22.0-35.0) % [place] % (Auto) (1.0-6.0) % Eos % (Auto) (1.5-5.0) % Baso % (Auto) (0.0-3.0) % Gran # (1.4-6.5) Lymph # (Auto) (1.2-3.4) [place] # (Auto) (0.1-0.6) Eos # (Auto) (0.0-0.7) Baso # (Auto) (0.0-2.0) K/mm3 pO2 (30-55) mm/Hg VBG pH (7.32-7.43) VBG pCO2 (40-60) VBG HCO3 (21-28) mmol/l VBG Total CO2 (22-28) mmol.L VBG O2 Sat (Calc) (40-65) % VBG Base Excess (0.0-2.0) mmol/L VBG Potassium (3.6-5.2) mmol/L Sodium (132-148) mmol/L Chloride (98-107) mmol/L Glucose (65-105) mg/dl Lactate (0.7-2.1) mmol/L FiO2 % Potassium (3.6-5.0) mmol/L Carbon Dioxide (21-33) mmol/L Anion Gap (10-20) BUN (7-21) mg/dL Creatinine (0.7-1.2) mg/dl Est GFR ( Amer) Est GFR (Non-Af Amer) POC Glucose (mg/dL) (65-110) mg/dL Random Glucose (70-110) mg/dL Calcium (8.4-10.5) mg/dL Phosphorus (2.5-4.5) mg/dL Magnesium (1.7-2.2) mg/dL Total Bilirubin (0.2-1.3) mg/dL AST (14-36) U/L ALT (7-56) U/L Alkaline Phosphatase (38-126) U/L Total Protein (5.8-8.3) g/dL Albumin (3.0-4.8) g/dL Globulin gm/dL Albumin/Globulin Ratio (1.1-1.8) Venous Blood Potassium (3.6-5.2) mmol/L Proteinase 3 (PR3) <1.0 <1.0 (<1.0) AI Myeloperoxidase Ab <1.0 <1.0 (<1.0) AI S.cerevisiae IgG Ab 22.2 H U S.cerevisiae IgA Ab 35.8 H U Blood Type Antibody Screen Crossmatch BBK History Checked Laboratory Results - last 24 hr 08/10/18 08/10/18 08/11/18 05:00 05:45 23:37 WBC RBC Hgb Hct MCV MCH MCHC RDW Plt Count MPV Gran % Lymph % (Auto) [place] % (Auto) Eos % (Auto) Baso % (Auto) Gran # Lymph # (Auto) [place] # (Auto) Eos # (Auto) Baso # (Auto) pO2 VBG pH VBG pCO2 VBG HCO3 VBG Total CO2 VBG O2 Sat (Calc) VBG Base Excess VBG Potassium Sodium Chloride Glucose Lactate FiO2 Potassium Carbon Dioxide Anion Gap BUN Creatinine Est GFR ( Amer) Est GFR (Non-Af Amer) POC Glucose (mg/dL) 108 Random Glucose Calcium Phosphorus Magnesium Total Bilirubin AST ALT Alkaline Phosphatase Total Protein Albumin Globulin Albumin/Globulin Ratio Venous Blood Potassium Proteinase 3 (PR3) <1.0 <1.0 Myeloperoxidase Ab <1.0 <1.0 S.cerevisiae IgG Ab 22.2 H S.cerevisiae IgA Ab 35.8 H Blood Type Antibody Screen Crossmatch BBK History Checked 08/12/18 08/12/18 08/12/18 10:30 11:17 16:37 WBC RBC Hgb Hct MCV MCH MCHC RDW Plt Count MPV Gran % Lymph % (Auto) [place] % (Auto) Eos % (Auto) Baso % (Auto) Gran # Lymph # (Auto) [place] # (Auto) Eos # (Auto) Baso # (Auto) pO2 VBG pH VBG pCO2 VBG HCO3 VBG Total CO2 VBG O2 Sat (Calc) VBG Base Excess VBG Potassium Sodium Chloride Glucose Lactate FiO2 Potassium Carbon Dioxide Anion Gap BUN Creatinine Est GFR ( Amer) Est GFR (Non-Af Amer) POC Glucose (mg/dL) 102 110 Random Glucose Calcium Phosphorus Magnesium Total Bilirubin AST ALT Alkaline Phosphatase Total Protein Albumin Globulin Albumin/Globulin Ratio Venous Blood Potassium Proteinase 3 (PR3) Myeloperoxidase Ab S.cerevisiae IgG Ab S.cerevisiae IgA Ab Blood Type A POSITIVE Antibody Screen Negative Crossmatch See Detail BBK History Checked Patient has bt 08/12/18 08/12/18 08/12/18 18:25 18:25 21:37 WBC 11.4 H D RBC 4.43 Hgb 13.1 D Hct 38.4 MCV 86.7 MCH 29.6 MCHC 34.1 RDW 17.8 H Plt Count 89 L MPV 9.6 Gran % Lymph % (Auto) [place] % (Auto) Eos % (Auto) Baso % (Auto) Gran # Lymph # (Auto) [place] # (Auto) Eos # (Auto) Baso # (Auto) pO2 26 L VBG pH 7.33 VBG pCO2 37.0 L VBG HCO3 19.5 L VBG Total CO2 20.6 L VBG O2 Sat (Calc) 57.4 VBG Base Excess -5.8 L VBG Potassium 4.7 Sodium 132.0 Chloride 106.0 Glucose 100 Lactate 2.2 H FiO2 21.0 Potassium Carbon Dioxide Anion Gap BUN Creatinine Est GFR ( Amer) Est GFR (Non-Af Amer) POC Glucose (mg/dL) 98 Random Glucose Calcium Phosphorus Magnesium Total Bilirubin AST ALT Alkaline Phosphatase Total Protein Albumin Globulin Albumin/Globulin Ratio Venous Blood Potassium 4.7 Proteinase 3 (PR3) Myeloperoxidase Ab S.cerevisiae IgG Ab S.cerevisiae IgA Ab Blood Type Antibody Screen Crossmatch BBK History Checked 08/13/18 08/13/18 08/13/18 00:00 00:00 01:45 WBC 12.2 H RBC 4.59 Hgb 13.5 Hct 40.0 MCV 87.1 MCH 29.4 MCHC 33.8 RDW 18.4 H Plt Count 95 L MPV 10.2 Gran % 90.7 H Lymph % (Auto) 5.3 L [place] % (Auto) 4.0 Eos % (Auto) 0.0 L Baso % (Auto) 0.0 Gran # 11.05 H Lymph # (Auto) 0.7 L [place] # (Auto) 0.5 Eos # (Auto) 0.0 Baso # (Auto) 0.00 pO2 145 H VBG pH 7.34 VBG pCO2 32.0 L VBG HCO3 17.3 L VBG Total CO2 18.3 L VBG O2 Sat (Calc) 99.3 H VBG Base Excess -7.4 L VBG Potassium 5.6 H Sodium 131.0 L 133 Chloride 105.0 111 H Glucose 108 H Lactate 2.1 FiO2 21.0 Potassium 5.0 Carbon Dioxide 17 L Anion Gap 10 BUN 29 H Creatinine 1.2 Est GFR ( Amer) 53 Est GFR (Non-Af Amer) 43 POC Glucose (mg/dL) Random Glucose 107 Calcium 8.9 Phosphorus 2.9 Magnesium 2.0 Total Bilirubin 1.0 AST 39 H D ALT 72 H Alkaline Phosphatase 436 H Total Protein 4.3 L Albumin 1.7 L Globulin 2.6 Albumin/Globulin Ratio 0.6 L Venous Blood Potassium 5.6 H Proteinase 3 (PR3) Myeloperoxidase Ab S.cerevisiae IgG Ab S.cerevisiae IgA Ab Blood Type Antibody Screen Crossmatch BBK History Checked 08/13/18 08/13/18 08/13/18 06:15 06:15 06:15 WBC 12.7 H RBC 4.50 Hgb 13.3 Hct 39.1 MCV 86.9 MCH 29.6 MCHC 34.0 RDW 18.5 H Plt Count 104 L MPV 9.9 Gran % 88.9 H Lymph % (Auto) 6.1 L [place] % (Auto) 5.0 Eos % (Auto) 0.0 L Baso % (Auto) 0.0 Gran # 11.31 H Lymph # (Auto) 0.8 L [place] # (Auto) 0.6 Eos # (Auto) 0.0 Baso # (Auto) 0.00 pO2 60 H VBG pH 7.35 VBG pCO2 32.0 L VBG HCO3 17.7 L VBG Total CO2 18.7 L VBG O2 Sat (Calc) 94.5 H VBG Base Excess -6.8 L VBG Potassium 4.7 Sodium 132.0 133 Chloride 107.0 114 H Glucose 106 H Lactate 1.6 FiO2 21.0 Potassium 4.8 Carbon Dioxide 17 L Anion Gap 8 L BUN 29 H Creatinine 1.3 H Est GFR ( Amer) 48 Est GFR (Non-Af Amer) 40 POC Glucose (mg/dL) Random Glucose 103 Calcium 8.9 Phosphorus Magnesium Total Bilirubin 1.0 AST 43 H ALT 69 H Alkaline Phosphatase 459 H Total Protein 4.3 L Albumin 1.7 L Globulin 2.6 Albumin/Globulin Ratio 0.6 L Venous Blood Potassium 4.7 Proteinase 3 (PR3) Myeloperoxidase Ab S.cerevisiae IgG Ab S.cerevisiae IgA Ab Blood Type Antibody Screen Crossmatch BBK History Checked 08/13/18 08/13/18 08:45 13:03 WBC RBC Hgb Hct MCV MCH MCHC RDW Plt Count MPV Gran % Lymph % (Auto) [place] % (Auto) Eos % (Auto) Baso % (Auto) Gran # Lymph # (Auto) [place] # (Auto) Eos # (Auto) Baso # (Auto) pO2 VBG pH VBG pCO2 VBG HCO3 VBG Total CO2 VBG O2 Sat (Calc) VBG Base Excess VBG Potassium Sodium Chloride Glucose Lactate FiO2 Potassium Carbon Dioxide Anion Gap BUN Creatinine Est GFR ( Amer) Est GFR (Non-Af Amer) POC Glucose (mg/dL) 101 110 Random Glucose Calcium Phosphorus Magnesium Total Bilirubin AST ALT Alkaline Phosphatase Total Protein Albumin Globulin Albumin/Globulin Ratio Venous Blood Potassium Proteinase 3 (PR3) Myeloperoxidase Ab S.cerevisiae IgG Ab S.cerevisiae IgA Ab Blood Type Antibody Screen Crossmatch BBK History Checked Critical Care Progress Note - Nutrition Nutrition: Nutrition Category Date Time Status Liquid Diet [DIET] Diets 08/13/18 Lunch Ordered Attending/Attestation - Attestation I have personally seen and examined this patient.: Yes I have fully participated in the care of the patient.: Yes I have reviewed all pertinent clinical information: Yes Notes (Text): 08/13/18 16:13 77 yo with resolved hemorrhagic shock due to lower GI bleed in the setting of IBD, s/p upper and lower endo with identified and contolled source of bleeding. at present time Hb is stable, eliquis (for stroke prophylaxis in the setting of paroxysmal afib) is held, BP/HR are stable. Patient appears to be disoriented and confused-->ICU delirium?-->will proceed with frequent re-orientation, optimization of sleep and circadian rhythms, kasandra-2 agonists PRN. neuro wanted MRI--waiting for x-ray to ascertain passing of metallic clips after endo, if not-->will hold MRI. ccm time 40 min
--- NOTE | 2018-08-13 14:22 | PN ---
DATE: 08/13/2018 CARDIOLOGY FOLLOWUP SUBJECTIVE: The patient history is not obtainable. PHYSICAL EXAMINATION: VITAL SIGNS: Blood pressure remains 138/70, heart rate is in the 90s. NECK: Negative JVD. LUNGS: Decreased breath sounds. HEART: Regular S1 and S2. EXTREMITIES: Without change. LABORATORY DATA: Hemoglobin after transfusion remains at 13. Chemistries, BUN and creatinine 29 and 1.3. IMPRESSION: 1. Status post gastrointestinal bleed. 2. Atrial fibrillation. 3. [id number] myocardial infarction. 4. Coronary artery disease. 5. History of cerebrovascular accident. Given these findings, her anticoagulation and antiplatelet therapy is put on hold. Hemodynamically, the patient is stable at this time. Tello Talbert MD
--- NOTE | 2018-08-13 15:05 | CP.PCM.PN ---
Subjective - Date & Time of Evaluation Date of Evaluation: 08/13/18 Time of Evaluation: 07:30 - Subjective Subjective: Resident Progress Note for Hospitalist Service Patient examined at bedside. She follows commands, however does not respond to questioning. Patient appears very weak and more lethargic compared to prior. Per nursing patient had two small bloody bowel movements overnight. Objective - Vital Signs/Intake and Output Vital Signs (last 24 hours): Temp Pulse Resp BP Pulse Ox 97.8 F 102 H 19 133/112 H 97 08/12/18 12:00 08/13/18 14:10 08/13/18 14:10 08/13/18 14:01 08/13/18 13:10 Intake and Output: 08/13/18 08/13/18 06:59 18:59 Intake Total 300 Output Total 50 Balance 250 - Medications Medications: Current Medications Acetaminophen (Tylenol 325mg Tab) 650 mg PO Q6H PRN PRN Reason: Pain, moderate (4-7) Last Admin: 08/12/18 20:46 Dose: 650 mg Albuterol/Ipratropium (Duoneb 3 Mg/0.5 Mg (3 Ml) Ud) 3 ml IH [id number] [facility] Last Admin: 08/13/18 13:14 Dose: 3 ml Atorvastatin Calcium (Lipitor) 40 mg PO DIN [facility] Last Admin: 08/12/18 17:23 Dose: 40 mg Cholecalciferol (Vitamin D) 2,000 intlu PO DAILY [facility] Last Admin: 08/13/18 10:53 Dose: 2,000 intlu Diltiazem HCl (Cardizem) 60 mg PO TID [facility] Last Admin: 08/13/18 10:53 Dose: 60 mg Guaifenesin (Robitussin) 100 mg PO Q4H PRN PRN Reason: Cough Last Admin: 08/09/18 15:41 Dose: 100 mg Metronidazole (Flagyl) 500 mg in 100 mls @ 100 mls/hr IVPB Q8 [facility]; Protocol Last Admin: 08/13/18 13:22 Dose: 100 mls/hr Cefepime HCl (Maxipime 1gm) 1 gm in 100 mls @ 100 mls/hr IVPB Q12 [facility]; Protocol Last Admin: 08/13/18 10:54 Dose: 100 mls/hr Lactated Ringer's (Lactated Ringer's) 1,000 mls @ 100 mls/hr IV .Q10H [facility] Last Admin: 08/13/18 10:49 Dose: 100 mls/hr Insulin Human Regular (Humulin R Med) 0 units SC ACHS [facility]; Protocol Last Admin: 08/13/18 12:00 Dose: Not Given Lorazepam (Ativan) 0.25 mg PO Q6 PRN; 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 Reason: Anxiety Last Admin: 08/09/18 21:48 Dose: 0.25 mg Mesalamine (Pentasa) 500 mg PO QID [facility] Last Admin: 08/13/18 11:05 Dose: 500 mg Midodrine (Proamatine) 5 mg PO TID [facility] Last Admin: 08/13/18 13:25 Dose: 5 mg Ondansetron HCl (Zofran Inj) 4 mg IVP Q4H PRN PRN Reason: Nausea/Vomiting Last Admin: 08/06/18 06:39 Dose: 4 mg Pantoprazole Sodium (Protonix Ec Tab) 40 mg PO 0600 [facility] Last Admin: 08/13/18 05:03 Dose: 40 mg Prednisone (Prednisone Tab) 20 mg PO BID [facility] Last Admin: 08/13/18 13:23 Dose: 20 mg Quetiapine Fumarate (Seroquel) 12.5 mg PO HS PRN; 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 Reason: Agitation Last Admin: 08/12/18 23:10 Dose: 12.5 mg - Labs Labs: 08/13/18 06:15 08/13/18 06:15 PT 28.2 SECONDS (9.4-12.5) H 08/07/18 09:00 INR 2.41 08/07/18 09:00 APTT 36.0 Seconds (25.1-36.5) 08/01/18 05:30 - Additional Findings Additional findings: - Constitutional Appears: Non-toxic, No Acute Distress - Head Exam Head Exam: ATRAUMATIC, NORMOCEPHALIC - Eye Exam Eye Exam: EOMI, Normal appearance - ENT Exam ENT Exam: Mucous Membranes Moist, Normal Exam - Neck Exam Neck Exam: Normal Inspection - Respiratory Exam Respiratory Exam: Clear to Ausculation Bilateral, NORMAL BREATHING PATTERN - Cardiovascular Exam Cardiovascular Exam: REGULAR RHYTHM, +S1, +S2 - GI/Abdominal Exam GI & Abdominal Exam: Soft, Normal Bowel Sounds. absent: Tenderness - Extremities Exam Extremities Exam: Normal Capillary Refill, +2/4 Pitting Edema - Neurological Exam Neurological Exam: Alert, Awake. absent: Oriented x3 - Skin Skin Exam: Dry, Intact, Warm Assessment and Plan - Assessment and Plan (Free Text) Assessment: 77 yo F with PMHx of HTN, DM, osteoarthritis, COPD and suspected Crohn's Disease 2014 (not currently on maintenance therapy) presenting with AMS. Active treatment of NSTEMI< bilateral ischemic CVAs on ASA with Plavix held 2/2 concern for diarrhea with hematochezia. CT A/P PO contrast showed thickening of small bowel, descending, and recto-sigmoid colon. 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 Patient is a candidate for TCU but also had suicidal intent during hospital course placed on 1:1. Patient has been cleared by psych and 1:1 precautions was discontinued. Recently, patient had a new onset of Afib with RVR. Given high CHADVASC score, patient started on anticoagulation (Eliquis), however, patient is having active rectal bleeding. Plan: Non-Active GI Bleed 2/2 Crohn's Flare - s/p 1 unit pRBCs - CT A/P (08/03): segmental circumferential mucal thickening in proximal small bowel and mild distal descending colon and sigmoid colon. May represent acute, infectious, or inflammatory etiology. Severe diffuse anasarca. - Bleeding scan (08/05): no evidence of active GI bleed - ICU consulted. Recs appreciated. - s/p flex sig and endoscopy 08/08 * negative EGD, no active upper GI bleeding, no gastric ulcers * Flex sig to 40cm with Crohn Disease score of 14, ulcerations - GI consulted. Recs appreciated. - continue rowasa enemas, pentasa 500 mg PO QID and flagyl 500 mg IV Q8 -f/u IBD series Delirium 2/2 New Watershed Stroke - Ativan .25 mg q6 prn for agitation - Cardio does not recommend [facility] - PT recommends acute rehab - Brain MRI (07/30): multiple small cortical and subcortical infarcts in both hemispheres (R>L). Possibly due to hypotensive watershed infarct. - Head/Neck CTA (07/30): negative - Echo (07/31): EF 62%. Mod-severe aortic regurgitation. Mild pulmonary HTN. - Neuro recs appreciated - Psychiatry recs appreciated Afib with RVR - rate controlled - Eliquis held d/t hematochezia - Cardizem PO TID and Lopressor 5mg IVP prn - Cardio recs appreciated Fever with septic workup - resolved - BCx, Ucx negative - patient afebrile, no leukocytosis Suicidal intent - resolved - Psych recs appreciated - 1:1 precautions discontinued; cleared by psych NSTEMI - elevated troponins 2/2 stroke - No cath at this time. Continue medical management. - trops 0.18 -> .14 -secondary to stroke Hx of HTN - Recent SBP trending in the 90s - BP meds held at this time Hx of DM II - continue to monitor - ISS PPx, Diet, Disposition -DVT: SCDs, no anticoagulation at this time -GI: protonix -PT on board: acute rehab recs -Dispo: patient is DNR/DNI, palliative on board. Patient is still pending an accepting facility. EARC was done and approved for 10 days. Good until 08/[address] Anthony White PGY-1
[2018-08-13 16:44] LABS: ANCA SCREEN NEGATIVE (NEGATIVE)
[2018-08-13 16:44] LABS: ANCA SCREEN NEGATIVE (NEGATIVE)
[2018-08-13 17:07] LABS: BASO # 0.01 K/mm3 (0.0-2.0); BASO % 0.1 % (0.0-3.0); GRAN # 11.17 (1.4-6.5); GRAN % 87.6 % (50.0-68.0); HEMOGLOBIN 13.1 g/dL (12.0-16.0); LYMPH # 0.9 (1.2-3.4); LYMPH % 6.7 % (22.0-35.0); MEAN CELL VOLUME 88.6 fl (80.0-105.0); MEAN CORPUSCULAR HEMOGLOBIN 29.8 pg (25.0-35.0); MEAN CORPUSCULAR HGB CONC 33.7 g/dl (31.0-37.0); MEAN PLATELET VOLUME 9.8 fl (7.0-11.0); MONO # 0.7 (0.1-0.6); MONO % 5.6 % (1.0-6.0); RBC 4.39 10^6/uL (3.5-6.1); RED CELL DISTRIBUTION WIDTH 18.7 % (11.5-14.5); WHITE BLOOD COUNT 12.7 10^3/uL (4.5-11.0)
[2018-08-13 17:12] LABS: INR 1.5; PARTIAL THROMBOPLASTIN TIME 36.3 Seconds (25.1-36.5); PROTHROMBIN TIME 17.3 SECONDS (9.4-12.5)
--- NOTE | 2018-08-13 17:37 | RAD ---
Date of service: 08/13/2018 HISTORY: PT to undergo MRI. r/o endoscopic clips COMPARISON: 05/12/2018 the FINDINGS: BOWEL: There is nonspecific bowel gas pattern. No obstruction. No free air. BONES: Normal. OTHER FINDINGS: No radiopaque coils or metallic clips. IMPRESSION: Nonobstructive bowel-gas pattern. No radiographic evidence for metallic coils or clips.
[2018-08-13 17:44] LABS: ALB/GLOB RATIO 0.6 (1.1-1.8); ALBUMIN 1.8 g/dL (3.0-4.8); CALCIUM 8.9 mg/dL (8.4-10.5)
[2018-08-14] MEDS: Lactated Ringer's 1,000 ML IV SCH ×2 (01:18→13:50)
[2018-08-14] MEDS: Pantoprazole 40 mg EC Tab PO SCH (05:42)
[2018-08-14] MEDS: metroNIDAZOLE IV 500 mg/100 ml 500 MG/100 ML BAG IVPB SCH (06:12)
[2018-08-14] MEDS: Albuterol-Ipratrop 3 mg / 0.5 (3 ml) UD IH SCH ×3 (07:50→20:25)
[2018-08-14] MEDS: Insulin Reg-MEDIUM-Coverage SC SCH ×4 (08:47→22:23)
[2018-08-14] MEDS: Mesalamine ER Cap 500 MG PO SCH ×4 (09:22→22:08)
[2018-08-14] MEDS: Cholecalciferol 1,000 INTLU TAB PO SCH (09:23)
--- NOTE | 2018-08-14 10:24 | CP.PCM.PN ---
<Pankaj Sanchez - Last Filed: 08/14/18 12:33> Subjective - Date & Time of Evaluation Date of Evaluation: 08/14/18 Time of Evaluation: 10:21 - Subjective Subjective: No acute overnight events. Patient is comfortable. Denies abdominal pain or rectal bleeding. She is tolerating diet. Objective - Vital Signs/Intake and Output Vital Signs (last 24 hours): Temp Pulse Resp BP Pulse Ox 97.8 F 103 H 22 105/78 97 08/12/18 12:00 08/14/18 09:22 08/14/18 01:20 08/14/18 09:22 08/13/18 13:10 Intake and Output: 08/14/18 08/14/18 06:59 18:59 Intake Total 1500 Balance 1500 - Medications Medications: Current Medications Acetaminophen (Tylenol 325mg Tab) 650 mg PO Q6H PRN PRN Reason: Pain, moderate (4-7) Last Admin: 08/12/18 20:46 Dose: 650 mg Albuterol/Ipratropium (Duoneb 3 Mg/0.5 Mg (3 Ml) Ud) 3 ml IH [id number] [facility] Last Admin: 08/14/18 07:50 Dose: 3 ml Atorvastatin Calcium (Lipitor) 40 mg PO DIN [facility] Last Admin: 08/13/18 17:46 Dose: 40 mg Cholecalciferol (Vitamin D) 2,000 intlu PO DAILY [facility] Last Admin: 08/14/18 09:23 Dose: 2,000 intlu Diltiazem HCl (Cardizem) 60 mg PO TID [facility] Last Admin: 08/14/18 09:22 Dose: 60 mg Guaifenesin (Robitussin) 100 mg PO Q4H PRN PRN Reason: Cough Last Admin: 08/09/18 15:41 Dose: 100 mg Lactated Ringer's (Lactated Ringer's) 1,000 mls @ 100 mls/hr IV .Q10H [facility] Last Admin: 08/14/18 01:18 Dose: 100 mls/hr Insulin Human Regular (Humulin R Med) 0 units SC ACHS [facility]; Protocol Last Admin: 08/14/18 08:47 Dose: 1 unit Lorazepam (Ativan) 0.25 mg PO Q6 PRN; 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 Reason: Anxiety Last Admin: 08/09/18 21:48 Dose: 0.25 mg Mesalamine (Pentasa) 500 mg PO QID [facility] Last Admin: 08/14/18 09:22 Dose: 500 mg Midodrine (Proamatine) 5 mg PO TID [facility] Last Admin: 08/14/18 09:22 Dose: 5 mg Ondansetron HCl (Zofran Inj) 4 mg IVP Q4H PRN PRN Reason: Nausea/Vomiting Last Admin: 08/06/18 06:39 Dose: 4 mg Pantoprazole Sodium (Protonix Ec Tab) 40 mg PO 0600 [facility] Last Admin: 08/14/18 05:42 Dose: 40 mg Prednisone (Prednisone Tab) 20 mg PO BID [facility] Last Admin: 08/14/18 09:24 Dose: 20 mg Quetiapine Fumarate (Seroquel) 12.5 mg PO HS PRN; 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 Reason: Agitation Last Admin: 08/13/18 21:57 Dose: 12.5 mg - Labs Labs: 08/13/18 16:51 08/13/18 16:51 PT 17.3 SECONDS (9.4-12.5) H 08/13/18 16:51 INR 1.50 08/13/18 16:51 APTT 36.3 Seconds (25.1-36.5) 08/13/18 16:51 - Constitutional Appears: Non-toxic, No Acute Distress - Head Exam Head Exam: NORMAL INSPECTION, NORMOCEPHALIC - Eye Exam Eye Exam: EOMI, Normal appearance - Respiratory Exam Respiratory Exam: Clear to Ausculation Bilateral, NORMAL BREATHING PATTERN - Cardiovascular Exam Cardiovascular Exam: REGULAR RHYTHM, +S1, +S2 - GI/Abdominal Exam GI & Abdominal Exam: Soft, Normal Bowel Sounds. absent: Tenderness - Neurological Exam Neurological Exam: Alert, Awake - Psychiatric Exam Psychiatric exam: Flat Affect - Skin Skin Exam: Dry, Normal Color Assessment and Plan - Assessment and Plan (Free Text) Assessment: 77 year old female with PMH of HTN, DM, osteoarthritis, COPD and suspected Crohn's Disease 2014 (not currently on maintenance therapy) presenting with alt ered mental status. Active treatment of recurrent Lower GI bleed 2/2 Eliquis requiring transfusion with flexible sigmoidoscopy to 40cm showing active bleeding from extensively ulcerated mucosa- likely 2/2 Crohn's disease flare. 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 Plan: -H/H stable -consider GI bleeding scan if bleeding re-occurs -recommend avoid NOACs -continue clear liquid diet -on Prednisone 20mg BID day 5, Rowasa enema, and Mesalamine 500mg QID -elevated ALP likely secondary to cholestasis in setting of cefepime use -avoid hepatotoxic medications -neurology managing -f/u U/S for elevated alk phos <Pamela,Kovil V - Last Filed: 08/14/18 23:43> Objective - Vital Signs/Intake and Output Vital Signs (last 24 hours): Temp Pulse Resp BP Pulse Ox 97.8 F 106 H 28 H 111/38 L 97 08/14/18 16:00 08/14/18 18:00 08/14/18 16:10 08/14/18 17:10 08/14/18 16:10 Intake and Output: 08/14/18 08/15/18 18:59 06:59 Intake Total 1750 Output Total 425 Balance 1325 - Medications Medications: Current Medications Acetaminophen (Tylenol 325mg Tab) 650 mg PO Q6H PRN PRN Reason: Pain, moderate (4-7) Last Admin: 08/12/18 20:46 Dose: 650 mg Albumin Human (Albumin Human 25% (12.5 Gm/50 Ml)) 12.5 gm IV Q6H [facility] Stop: 08/15/18 21:01 Last Admin: 08/14/18 15:04 Dose: 12.5 gm Albuterol/Ipratropium (Duoneb 3 Mg/0.5 Mg (3 Ml) Ud) 3 ml IH [id number] [facility] Last Admin: 08/14/18 20:25 Dose: 3 ml Atorvastatin Calcium (Lipitor) 40 mg PO DIN [facility] Last Admin: 08/14/18 17:09 Dose: 40 mg Cholecalciferol (Vitamin D) 2,000 intlu PO DAILY [facility] Last Admin: 08/14/18 09:23 Dose: 2,000 intlu Diltiazem HCl (Cardizem) 60 mg PO TID [facility] Last Admin: 08/14/18 17:10 Dose: 60 mg Guaifenesin (Robitussin) 100 mg PO Q4H PRN PRN Reason: Cough Last Admin: 11/17/18 15:41 Dose: 100 mg Heparin Sodium (Porcine) (Heparin) 5,000 units SC Q8 [facility]; Protocol Last Admin: 08/14/18 13:46 Dose: 5,000 units Lactated Ringer's (Lactated Ringer's) 1,000 mls @ 100 mls/hr IV .Q10H [facility] Last Admin: 08/14/18 13:50 Dose: 100 mls/hr Ceftriaxone Sodium (Rocephin 1 Gram Ivpb) 1 gm in 100 mls @ 100 mls/hr IVPB DAILY [facility]; Protocol Last Admin: 08/14/18 13:49 Dose: 100 mls/hr Insulin Human Regular (Humulin R Med) 0 units SC ACHS [facility]; Protocol Last Admin: 08/14/18 17:06 Dose: Not Given Lorazepam (Ativan) 0.25 mg PO Q6 PRN; 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 Reason: Anxiety Last Admin: 08/09/18 21:48 Dose: 0.25 mg Mesalamine (Pentasa) 500 mg PO QID [facility] Last Admin: 08/14/18 17:11 Dose: 500 mg Midodrine (Proamatine) 5 mg PO TID [facility] Last Admin: 08/14/18 17:10 Dose: 5 mg Ondansetron HCl (Zofran Inj) 4 mg IVP Q4H PRN PRN Reason: Nausea/Vomiting Last Admin: 08/06/18 06:39 Dose: 4 mg Pantoprazole Sodium (Protonix Ec Tab) 40 mg PO 0600 [facility] Last Admin: 08/14/18 05:42 Dose: 40 mg Prednisone (Prednisone Tab) 20 mg PO BID [facility] Last Admin: 08/14/18 17:11 Dose: 20 mg Quetiapine Fumarate (Seroquel) 12.5 mg PO HS PRN; 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 Reason: Agitation Last Admin: 08/13/18 21:57 Dose: 12.5 mg - Labs Labs: 08/14/18 10:50 08/14/18 10:50 PT 17.3 SECONDS (9.4-12.5) H 08/13/18 16:51 INR 1.50 08/13/18 16:51 APTT 36.3 Seconds (25.1-36.5) 08/13/18 16:51 Attending/Attestation - Attestation I have personally seen and examined this patient.: Yes I have fully participated in the care of the patient.: Yes I have reviewed all pertinent clinical information, including history, physical exam and plan: Yes Notes (Text): This is an addendum to GI progress report dictated by the GI Fellow.The patient was seen and examined earlier. Medical records, lab studies, imagings were re viewed. Last 24 hours events reviewed. Agreed with the above treatment plan as outlined in GI Fellow 's notes with the addition of the following 08/14/18 23:43
[2018-08-14 10:59] LABS: HEMOGLOBIN 13.3 g/dL (12.0-16.0); MEAN CELL VOLUME 88.9 fl (80.0-105.0); MEAN CORPUSCULAR HEMOGLOBIN 30.2 pg (25.0-35.0); MEAN CORPUSCULAR HGB CONC 33.9 g/dl (31.0-37.0); MEAN PLATELET VOLUME 10.1 fl (7.0-11.0); RBC 4.41 10^6/uL (3.5-6.1); RED CELL DISTRIBUTION WIDTH 18.8 % (11.5-14.5); WHITE BLOOD COUNT 15.9 10^3/uL (4.5-11.0)
--- NOTE | 2018-08-14 11:51 | CP.PCM.PN ---
<Francisco J Milan - Last Filed: 08/14/18 11:47> Subjective - Date & Time of Evaluation Date of Evaluation: 08/14/18 Time of Evaluation: 08:00 - Subjective Subjective: Francisco J Milan PGY-1 Progress Note for Hospitalist Service Patient seen and evaluated at bedside. Currently in A fib at rate of 110. Patient received 35 mg overnight of Cardizem for HR 150's. Brain MRI pending for acute change in mental status. No further episodes of bloody bowel movements reported. Objective - Vital Signs/Intake and Output Vital Signs (last 24 hours): Temp Pulse Resp BP Pulse Ox 97.8 F 103 H 22 105/78 97 08/12/18 12:00 08/14/18 09:22 08/14/18 01:20 08/14/18 09:22 08/13/18 13:10 Intake and Output: 08/14/18 08/14/18 06:59 18:59 Intake Total 1500 Balance 1500 - Medications Medications: Current Medications Acetaminophen (Tylenol 325mg Tab) 650 mg PO Q6H PRN PRN Reason: Pain, moderate (4-7) Last Admin: 08/12/18 20:46 Dose: 650 mg Albuterol/Ipratropium (Duoneb 3 Mg/0.5 Mg (3 Ml) Ud) 3 ml IH [id number] [facility] Last Admin: 08/14/18 07:50 Dose: 3 ml Atorvastatin Calcium (Lipitor) 40 mg PO DIN [facility] Last Admin: 08/13/18 17:46 Dose: 40 mg Cholecalciferol (Vitamin D) 2,000 intlu PO DAILY [facility] Last Admin: 08/14/18 09:23 Dose: 2,000 intlu Diltiazem HCl (Cardizem) 60 mg PO TID [facility] Last Admin: 08/14/18 09:22 Dose: 60 mg Guaifenesin (Robitussin) 100 mg PO Q4H PRN PRN Reason: Cough Last Admin: 08/09/18 15:41 Dose: 100 mg Lactated Ringer's (Lactated Ringer's) 1,000 mls @ 100 mls/hr IV .Q10H [facility] Last Admin: 08/14/18 01:18 Dose: 100 mls/hr Insulin Human Regular (Humulin R Med) 0 units SC [facility]; Protocol Last Admin: 08/14/18 08:47 Dose: 1 unit Lorazepam (Ativan) 0.25 mg PO Q6 PRN; 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 Reason: Anxiety Last Admin: 08/09/18 21:48 Dose: 0.25 mg Mesalamine (Pentasa) 500 mg PO QID [facility] Last Admin: 08/14/18 09:22 Dose: 500 mg Midodrine (Proamatine) 5 mg PO TID [facility] Last Admin: 08/14/18 09:22 Dose: 5 mg Ondansetron HCl (Zofran Inj) 4 mg IVP Q4H PRN PRN Reason: Nausea/Vomiting Last Admin: 08/06/18 06:39 Dose: 4 mg Pantoprazole Sodium (Protonix Ec Tab) 40 mg PO 0600 [facility] Last Admin: 08/14/18 05:42 Dose: 40 mg Prednisone (Prednisone Tab) 20 mg PO BID [facility] Last Admin: 08/14/18 09:24 Dose: 20 mg Quetiapine Fumarate (Seroquel) 12.5 mg PO HS PRN; 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 Reason: Agitation Last Admin: 08/13/18 21:57 Dose: 12.5 mg - Labs Labs: 08/14/18 10:50 08/13/18 16:51 PT 17.3 SECONDS (9.4-12.5) H 08/13/18 16:51 INR 1.50 08/13/18 16:51 APTT 36.3 Seconds (25.1-36.5) 08/13/18 16:51 - Additional Findings Additional findings: - Constitutional Appears: Non-toxic, No Acute Distress, Unkempt - Head Exam Head Exam: ATRAUMATIC, NORMOCEPHALIC - Eye Exam Eye Exam: EOMI, Normal appearance - ENT Exam ENT Exam: Mucous Membranes Moist, Normal Exam - Neck Exam Neck Exam: Normal Inspection - Respiratory Exam Respiratory Exam: Clear to Ausculation Bilateral, NORMAL BREATHING PATTERN - Cardiovascular Exam Cardiovascular Exam: IRREGULAR RHYTHM, +S1, +S2 - GI/Abdominal Exam GI & Abdominal Exam: Soft, Normal Bowel Sounds. absent: Tenderness - Extremities Exam Extremities Exam: Normal Capillary Refill, +2/4 Pitting Edema - Neurological Exam Neurological Exam: Alert, Awake. absent: Oriented x3 - Skin Skin Exam: Dry, Intact, Warm Assessment and Plan - Assessment and Plan (Free Text) Assessment: 77 yo F with PMHx of HTN, DM, osteoarthritis, COPD and suspected Crohn's Disease 2014 (not currently on maintenance therapy) presenting with AMS. Active treatment of NSTEMI, bilateral ischemic CVAs on ASA with Plavix CURRENTLY held 2/2 concern for diarrhea with hematochezia. CT A/P PO contrast showed thickening of small bowel, descending, and recto-sigmoid colon. Patient is a candidate for TCU but also had suicidal intent during hospital course placed on 1:1. Patient has been cleared by psych and 1:1 precautions was discontinued. Recently, patient had a new onset of Afib with RVR. Given high CHADVASC score, patient started on anticoagulation (Eliquis), however, patient is having active rectal bleeding so currently on hold. Transferred to telemetry 08/13. Plan: Non-Active GI Bleed 2/2 Crohn's Flare - s/p 1 unit pRBCs - CT A/P (08/03): segmental circumferential mucal thickening in proximal small bowel and mild distal descending colon and sigmoid colon. May represent acute, infectious, or inflammatory etiology. Severe diffuse anasarca. - Bleeding scan (08/05): no evidence of active GI bleed IVF LR @ 100 cc/hr - s/p flex sig and endoscopy 08/08 * negative EGD, no active upper GI bleeding, no gastric ulcers * Flex sig to 40cm with Crohn Disease score of 14, ulcerations - GI consulted. Recs appreciated. - continue rowasa enemas, pentasa 500 mg PO QID and flagyl 500 mg IV Q8 -IBD series 08/13: nonobstructive gas pattern Delirium 2/2 New Watershed Stroke - Ativan .25 mg q6 prn for agitation - Cardio does not recommend PATRICK - PT recommends acute rehab - Brain MRI (07/30): multiple small cortical and subcortical infarcts in both hemispheres (R>L). Possibly due to hypotensive watershed infarct. - Head/Neck CTA (07/30): negative - Echo (07/31): EF 62%. Mod-severe aortic regurgitation. Mild pulmonary HTN. - Neuro recs appreciated - Psychiatry recs appreciated - repeat brain MRI pending Afib with RVR - rate controlled, currently in 100's - Eliquis held d/t hematochezia - Cardizem PO TID and Lopressor 5mg IVP prn - Cardio recs appreciated Fever with septic workup - resolved - BCx, Ucx negative - patient afebrile, no leukocytosis Suicidal intent - resolved - Psych recs appreciated - 1:1 precautions discontinued; cleared by psych NSTEMI - elevated troponins 2/2 stroke - No cath at this time. Continue medical management. - trops 0.18 -> .14 -secondary to stroke Hx of HTN - Recent SBP trending in the 90s - BP meds held at this time Hx of DM II - continue to monitor - ISS PPx, Diet, Disposition -DVT: SCDs, no anticoagulation at this time -GI: protonix -PT on board: acute rehab recs -Dispo: patient is DNR/DNI, palliative on board. Patient is still pending an accepting facility. EARC was done and approved for 10 days. Good until 08/17 Patient seen, case reviewed and plan approved by Dr. Quevedo. Francisco J Milan, PGY-1 <Milagros Quevedo - Last Filed: 08/14/18 13:40> Objective - Vital Signs/Intake and Output Vital Signs (last 24 hours): Temp Pulse Resp BP Pulse Ox 97.8 F 122 H 28 H 190/160 H 98 08/12/18 12:00 08/14/18 11:40 08/14/18 11:40 08/14/18 11:07 08/14/18 11:40 Intake and Output: 08/14/18 08/14/18 06:59 18:59 Intake Total 1500 Balance 1500 - Medications Medications: Current Medications Acetaminophen (Tylenol 325mg Tab) 650 mg PO Q6H PRN PRN Reason: Pain, moderate (4-7) Last Admin: 08/12/18 20:46 Dose: 650 mg Albuterol/Ipratropium (Duoneb 3 Mg/0.5 Mg (3 Ml) Ud) 3 ml IH [id number] [facility] Last Admin: 08/14/18 13:30 Dose: 3 ml Atorvastatin Calcium (Lipitor) 40 mg PO DIN [facility] Last Admin: 08/13/18 17:46 Dose: 40 mg Cholecalciferol (Vitamin D) 2,000 intlu PO DAILY [facility] Last Admin: 08/14/18 09:23 Dose: 2,000 intlu Diltiazem HCl (Cardizem) 60 mg PO TID [facility] Last Admin: 08/14/18 09:22 Dose: 60 mg Guaifenesin (Robitussin) 100 mg PO Q4H PRN PRN Reason: Cough Last Admin: 08/09/18 15:41 Dose: 100 mg Heparin Sodium (Porcine) (Heparin) 5,000 units SC Q8 [facility]; Protocol Lactated Ringer's (Lactated Ringer's) 1,000 mls @ 100 mls/hr IV .Q10H [facility] Last Admin: 08/14/18 01:18 Dose: 100 mls/hr Ceftriaxone Sodium (Rocephin 1 Gram Ivpb) 1 gm in 100 mls @ 100 mls/hr IVPB DAILY [facility]; Protocol Insulin Human Regular (Humulin R Med) 0 units SC A[facility]S [facility]; Protocol Last Admin: 08/14/18 12:39 Dose: 1 unit Lorazepam (Ativan) 0.25 mg PO Q6 PRN; 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 Reason: Anxiety Last Admin: 08/09/18 21:48 Dose: 0.25 mg Mesalamine (Pentasa) 500 mg PO QID [facility] Last Admin: 08/14/18 09:22 Dose: 500 mg Midodrine (Proamatine) 5 mg PO TID [facility] Last Admin: 08/14/18 09:22 Dose: 5 mg Ondansetron HCl (Zofran Inj) 4 mg IVP Q4H PRN PRN Reason: Nausea/Vomiting Last Admin: 08/06/18 06:39 Dose: 4 mg Pantoprazole Sodium (Protonix Ec Tab) 40 mg PO 0600 [facility] Last Admin: 08/14/18 05:42 Dose: 40 mg Prednisone (Prednisone Tab) 20 mg PO BID [facility] Last Admin: 08/14/18 09:24 Dose: 20 mg Quetiapine Fumarate (Seroquel) 12.5 mg PO HS PRN; 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 Reason: Agitation Last Admin: 08/13/18 21:57 Dose: 12.5 mg - Labs Labs: 08/14/18 10:50 08/14/18 10:50 PT 17.3 SECONDS (9.4-12.5) H 08/13/18 16:51 INR 1.50 08/13/18 16:51 APTT 36.3 Seconds (25.1-36.5) 08/13/18 16:51 Attending/Attestation - Attestation I have personally seen and examined this patient.: Yes I have fully participated in the care of the patient.: Yes I have reviewed all pertinent clinical information, including history, physical exam and plan: Yes Notes (Text): 08/14/18 13:32 77 year old female with past medical history of Crohn's disease, COPD, hypertension and diabetes who presented with delirium. She was found to have multiple small cortical and subcortical infarcts in both hemispheres on MRI brain. She was also found to have possible NSTEMI. She was started on aspirin and plavix which were later discontinue secondary to rectal bleeding which resolved. She was later started on eliquis for new onset afib with rvr, after discussing risks and benefits with daughter, but this was also discontinued secondary to recurrent GI bleed. GI is following for Crohn's flare and started patient on rowasa, pentasa and prednisone. She is s/p flexible sigmoidoscopy and endoscopy with findings consistent with Crohn's disease. Patient's mental status continues to wax and wane. Psychiatry and neurology are following. She is pending repeat MRI brain. Today she is noted to have decreased urine output and LISETTE. She is on IVF. Fo brooks for measuring Is/Os. Nephrology evaluation is requested. Milagros Quevedo MD Hospitalist.
[2018-08-14 12:00] LABS: ALB/GLOB RATIO 0.7 (1.1-1.8); ALBUMIN 1.8 g/dL (3.0-4.8)
--- NOTE | 2018-08-14 12:24 | CP.CCUPN ---
<David Sun - Last Filed: 08/14/18 12:21> CCU Subjective - Physician Review Subjective (Free Text): David Sun, PGY1 ICU Progress Note for Dr. Manning Patient was seen and examined at bedside this morning. Overnight, patient had continuous episodes of Afib with RVR. HR was noted to be in the 150s. She was given cardizem IVP stat doses on 3 separate occasions at night. This morning, ICU monitor still showed Afib with RVR at 141 bpm. Other vital signs were stable. She is awake, moves all extremities. Patient still has worsened aphasia and concentration. ROS unable to be obtained due to mental status. No episodes of bloody bowel movements overnight. CCU Objective - Vital Signs / Intake & Output Vital Signs (Last 4 hours): Vital Signs Pulse Resp BP Pulse Ox 08/14/18 11:40 122 H 28 H 98 08/14/18 11:30 125 H 20 08/14/18 11:20 123 H 99 08/14/18 11:10 122 H 21 97 08/14/18 11:07 132 H 21 190/160 H 100 08/14/18 11:00 140 H 19 100 08/14/18 10:50 129 H 18 100 08/14/18 10:40 136 H 20 99 08/14/18 10:30 149 H 23 08/14/18 10:20 157 H 19 100 08/14/18 10:10 94 H 25 H 100 08/14/18 10:00 96 H 17 111/84 98 08/14/18 09:50 91 H 24 100 08/14/18 09:40 95 H 24 99 08/14/18 09:30 101 H 33 H 95 08/14/18 09:22 103 H 105/78 08/14/18 09:20 99 H 30 H 98 08/14/18 09:10 101 H 40 H 94 L 08/14/18 09:00 99 H 25 H 105/78 08/14/18 08:56 101 H 08/14/18 08:54 102 H 22 08/14/18 08:50 102 H 08/14/18 08:47 102 H 20 08/14/18 08:40 99 H 21 08/14/18 08:39 102 H 20 08/14/18 08:37 101 H 23 08/14/18 08:34 103 H 08/14/18 08:32 105 H 08/14/18 08:30 99 H 21 08/14/18 08:29 104 H 23 08/14/18 08:28 105 H 18 Intake and Output (Last 8hrs): Intake & Output 08/13/18 08/14/18 08/14/18 22:59 06:59 14:59 Intake Total 1400 1500 Balance 1400 1500 Intake: IV 1100 1500 abx 1100 1500 Oral 300 Other: # Bowel Movements 2 - Physical Exam Head: Positive for: Atraumatic, Normocephalic Pupils: Positive for: PERRL Extroacular Muscles: Positive for: EOMI Mouth: Positive for: Moist Mucous Membranes Neck: Positive for: Normal Range of Motion. Negative for: Meningeal Signs Respiratory/Chest: Positive for: Clear to Auscultation. Negative for: Respiratory Distress, Wheezes, Rales, Rhonchi Cardiovascular: Positive for: Normal S1, S2, Tachycardic Abdomen: Positive for: Normal Bowel Sounds. Negative for: Distention, Peritoneal Signs, Rebound, Mass/Organomegaly Upper Extremity: Positive for: Normal Inspection Lower Extremity: Positive for: Edema (Patient has +2 pitting edema bilateral lower extremities ), NORMAL PULSES. Negative for: CALF TENDERNESS, Cyanosis Skin: Positive for: Warm, Dry, Normal Color Psychiatric: Positive for: Alert. Negative for: Oriented x 3, Normal Insight, Normal Concentration - Medications Active Medications: Active Medications Generic Name Dose Route Start Last Admin Trade Name Freq PRN Reason Stop Dose Admin Acetaminophen 650 mg 08/09/18 21:57 08/12/18 20:46 Tylenol 325mg Tab PO 650 mg Q6H PRN Administration Pain, moderate (4-7) Albuterol/Ipratropium 3 ml 08/09/18 15:15 08/14/18 07:50 Duoneb 3 Mg/0.5 Mg (3 Ml) Ud IH 3 ml [id number] ANGELES Administration Atorvastatin Calcium 40 mg 07/30/18 17:00 08/13/18 17:46 Lipitor PO 40 mg DIN ANGELES Administration Cholecalciferol 2,000 intlu 07/29/18 10:00 08/14/18 09:23 Vitamin D PO 2,000 intlu DAILY ANGELES Administration Diltiazem HCl 60 mg 08/05/18 14:00 11/22/18 09:22 Cardizem PO 60 mg TID ANGELES Administration Guaifenesin 100 mg 08/09/18 15:30 08/09/18 15:41 Robitussin PO 100 mg Q4H PRN Administration Cough Lactated Ringer's 1,000 mls @ 100 mls/hr 08/13/18 10:45 08/14/18 01:18 Lactated Ringer's IV 100 mls/hr .Q10H ANGELES Administration Insulin Human Regular 0 units 07/28/18 22:00 08/14/18 08:47 Humulin R Med SC 1 unit ACHS ANGELES Administration Protocol Lorazepam 0.25 mg 08/03/18 10:23 08/09/18 21:48 Ativan PO 0.25 mg Q6 PRN Administration Anxiety Protocol Mesalamine 500 mg 08/05/18 10:00 08/14/18 09:22 Pentasa PO 500 mg QID ANGELES Administration Midodrine 5 mg 08/11/18 14:00 08/14/18 09:22 Proamatine PO 5 mg TID ANGELES Administration Ondansetron HCl 4 mg 08/04/18 12:59 08/06/18 06:39 Zofran Inj IVP 4 mg Q4H PRN Administration Nausea/Vomiting Pantoprazole Sodium 40 mg 07/29/18 06:00 08/14/18 05:42 Protonix Ec Tab PO 40 mg 0600 ANGELES Administration Prednisone 20 mg 08/09/18 18:00 08/14/18 09:24 Prednisone Tab PO 20 mg BID ANGELES Administration Quetiapine Fumarate 12.5 mg 08/04/18 12:46 08/13/18 21:57 Seroquel PO 12.5 mg HS PRN Administration Agitation Protocol - Patient Studies Lab Studies: Lab Studies 08/14/18 08/14/18 08/14/18 Range/Units 10:50 10:50 08:06 WBC 15.9 H D (4.5-11.0) 10^3/uL RBC 4.41 (3.5-6.1) 10^6/uL Hgb 13.3 (12.0-16.0) g/dL Hct 39.2 (36.0-48.0) % MCV 88.9 (80.0-105.0) fl MCH 30.2 (25.0-35.0) pg MCHC 33.9 (31.0-37.0) g/dl RDW 18.8 H (11.5-14.5) % Plt Count 140 (120.0-450.0) 10^3/uL MPV 10.1 (7.0-11.0) fl Gran % (50.0-68.0) % Lymph % (Auto) (22.0-35.0) % [place] % (Auto) (1.0-6.0) % Eos % (Auto) (1.5-5.0) % Baso % (Auto) (0.0-3.0) % Gran # (1.4-6.5) Lymph # (Auto) (1.2-3.4) [place] # (Auto) (0.1-0.6) Eos # (Auto) (0.0-0.7) Baso # (Auto) (0.0-2.0) K/mm3 PT (9.4-12.5) SECONDS INR APTT (25.1-36.5) Seconds Sodium 135 (132-148) mmol/L Potassium 4.7 (3.6-5.0) mmol/L Chloride 113 H (98-107) mmol/L Carbon Dioxide 17 L (21-33) mmol/L Anion Gap 10 (10-20) BUN 36 H (7-21) mg/dL Creatinine 1.7 H (0.7-1.2) mg/dl Est GFR ( Amer) 35 Est GFR (Non-Af Amer) 29 POC Glucose (mg/dL) 168 H (65-110) mg/dL Random Glucose 134 H (70-110) mg/dL Calcium 9.0 (8.4-10.5) mg/dL Phosphorus 3.0 (2.5-4.5) mg/dL Magnesium 2.0 (1.7-2.2) mg/dL Total Bilirubin 0.8 (0.2-1.3) mg/dL AST 28 (14-36) U/L ALT 58 H (7-56) U/L Alkaline Phosphatase 412 H (38-126) U/L Total Protein 4.4 L (5.8-8.3) g/dL Albumin 1.8 L (3.0-4.8) g/dL Globulin 2.6 gm/dL Albumin/Globulin Ratio 0.7 L (1.1-1.8) ANCA Screen (NEGATIVE) c-ANCA Titer p-ANCA Titer Atypical p-ANCA Titer 08/13/18 08/13/18 08/13/18 Range/Units 21:41 16:51 16:51 WBC 12.7 H (4.5-11.0) 10^3/uL RBC 4.39 (3.5-6.1) 10^6/uL Hgb 13.1 (12.0-16.0) g/dL Hct 38.9 (36.0-48.0) % MCV 88.6 (80.0-105.0) fl MCH 29.8 (25.0-35.0) pg MCHC 33.7 (31.0-37.0) g/dl RDW 18.7 H (11.5-14.5) % Plt Count 109 L (120.0-450.0) 10^3/uL MPV 9.8 (7.0-11.0) fl Gran % 87.6 H (50.0-68.0) % Lymph % (Auto) 6.7 L (22.0-35.0) % [place] % (Auto) 5.6 (1.0-6.0) % Eos % (Auto) 0.0 L (1.5-5.0) % Baso % (Auto) 0.1 (0.0-3.0) % Gran # 11.17 H (1.4-6.5) Lymph # (Auto) 0.9 L (1.2-3.4) [place] # (Auto) 0.7 H (0.1-0.6) Eos # (Auto) 0.0 (0.0-0.7) Baso # (Auto) 0.01 (0.0-2.0) K/mm3 PT (9.4-12.5) SECONDS INR APTT (25.1-36.5) Seconds Sodium 135 (132-148) mmol/L Potassium 4.9 (3.6-5.0) mmol/L Chloride 112 H (98-107) mmol/L Carbon Dioxide 18 L (21-33) mmol/L Anion Gap 11 (10-20) BUN 32 H (7-21) mg/dL Creatinine 1.5 H (0.7-1.2) mg/dl Est GFR ( Amer) 41 Est GFR (Non-Af Amer) 34 POC Glucose (mg/dL) 188 H (65-110) mg/dL Random Glucose 116 H (70-110) mg/dL Calcium 8.9 (8.4-10.5) mg/dL Phosphorus 2.9 (2.5-4.5) mg/dL Magnesium 2.0 (1.7-2.2) mg/dL Total Bilirubin 0.8 (0.2-1.3) mg/dL AST 40 H (14-36) U/L ALT 66 H (7-56) U/L Alkaline Phosphatase 464 H (38-126) U/L Total Protein 4.5 L (5.8-8.3) g/dL Albumin 1.8 L (3.0-4.8) g/dL Globulin 2.7 gm/dL Albumin/Globulin Ratio 0.6 L (1.1-1.8) ANCA Screen (NEGATIVE) c-ANCA Titer p-ANCA Titer Atypical p-ANCA Titer 08/13/18 08/13/18 08/13/18 Range/Units 16:51 16:25 13:03 WBC (4.5-11.0) 10^3/uL RBC (3.5-6.1) 10^6/uL Hgb (12.0-16.0) g/dL Hct (36.0-48.0) % MCV (80.0-105.0) fl MCH (25.0-35.0) pg MCHC (31.0-37.0) g/dl RDW (11.5-14.5) % Plt Count (120.0-450.0) 10^3/uL MPV (7.0-11.0) fl Gran % (50.0-68.0) % Lymph % (Auto) (22.0-35.0) % [place] % (Auto) (1.0-6.0) % Eos % (Auto) (1.5-5.0) % Baso % (Auto) (0.0-3.0) % Gran # (1.4-6.5) Lymph # (Auto) (1.2-3.4) [place] # (Auto) (0.1-0.6) Eos # (Auto) (0.0-0.7) Baso # (Auto) (0.0-2.0) K/mm3 PT 17.3 H (9.4-12.5) SECONDS INR 1.50 APTT 36.3 (25.1-36.5) Seconds Sodium (132-148) mmol/L Potassium (3.6-5.0) mmol/L Chloride (98-107) mmol/L Carbon Dioxide (21-33) mmol/L Anion Gap (10-20) BUN (7-21) mg/dL Creatinine (0.7-1.2) mg/dl Est GFR ( Amer) Est GFR (Non-Af Amer) POC Glucose (mg/dL) 120 H 110 (65-110) mg/dL Random Glucose (70-110) mg/dL Calcium (8.4-10.5) mg/dL Phosphorus (2.5-4.5) mg/dL Magnesium (1.7-2.2) mg/dL Total Bilirubin (0.2-1.3) mg/dL AST (14-36) U/L ALT (7-56) U/L Alkaline Phosphatase (38-126) U/L Total Protein (5.8-8.3) g/dL Albumin (3.0-4.8) g/dL Globulin gm/dL Albumin/Globulin Ratio (1.1-1.8) ANCA Screen (NEGATIVE) c-ANCA Titer p-ANCA Titer Atypical p-ANCA Titer 08/10/18 08/10/18 Range/Units 05:45 05:00 WBC (4.5-11.0) 10^3/uL RBC (3.5-6.1) 10^6/uL Hgb (12.0-16.0) g/dL Hct (36.0-48.0) % MCV (80.0-105.0) fl MCH (25.0-35.0) pg MCHC (31.0-37.0) g/dl RDW (11.5-14.5) % Plt Count (120.0-450.0) 10^3/uL MPV (7.0-11.0) fl Gran % (50.0-68.0) % Lymph % (Auto) (22.0-35.0) % [place] % (Auto) (1.0-6.0) % Eos % (Auto) (1.5-5.0) % Baso % (Auto) (0.0-3.0) % Gran # (1.4-6.5) Lymph # (Auto) (1.2-3.4) [place] # (Auto) (0.1-0.6) Eos # (Auto) (0.0-0.7) Baso # (Auto) (0.0-2.0) K/mm3 PT (9.4-12.5) SECONDS INR APTT (25.1-36.5) Seconds Sodium (132-148) mmol/L Potassium (3.6-5.0) mmol/L Chloride (98-107) mmol/L Carbon Dioxide (21-33) mmol/L Anion Gap (10-20) BUN (7-21) mg/dL Creatinine (0.7-1.2) mg/dl Est GFR ( Amer) Est GFR (Non-Af Amer) POC Glucose (mg/dL) (65-110) mg/dL Random Glucose (70-110) mg/dL Calcium (8.4-10.5) mg/dL Phosphorus (2.5-4.5) mg/dL Magnesium (1.7-2.2) mg/dL Total Bilirubin (0.2-1.3) mg/dL AST (14-36) U/L ALT (7-56) U/L Alkaline Phosphatase (38-126) U/L Total Protein (5.8-8.3) g/dL Albumin (3.0-4.8) g/dL Globulin gm/dL Albumin/Globulin Ratio (1.1-1.8) ANCA Screen Negative Negative (NEGATIVE) c-ANCA Titer TNP TNP p-ANCA Titer TNP TNP Atypical p-ANCA Titer TNP TNP Laboratory Results - last 24 hr 08/10/18 08/10/18 08/13/18 05:00 05:45 13:03 WBC RBC Hgb Hct MCV MCH MCHC RDW Plt Count MPV Gran % Lymph % (Auto) [place] % (Auto) Eos % (Auto) Baso % (Auto) Gran # Lymph # (Auto) [place] # (Auto) Eos # (Auto) Baso # (Auto) PT INR APTT Sodium Potassium Chloride Carbon Dioxide Anion Gap BUN Creatinine Est GFR ( Amer) Est GFR (Non-Af Amer) POC Glucose (mg/dL) 110 Random Glucose Calcium Phosphorus Magnesium Total Bilirubin AST ALT Alkaline Phosphatase Total Protein Albumin Globulin Albumin/Globulin Ratio ANCA Screen Negative Negative c-ANCA Titer TNP TNP p-ANCA Titer TNP TNP Atypical p-ANCA Titer TNP TNP 08/13/18 08/13/18 08/13/18 16:25 16:51 16:51 WBC 12.7 H RBC 4.39 Hgb 13.1 Hct 38.9 MCV 88.6 MCH 29.8 MCHC 33.7 RDW 18.7 H Plt Count 109 L MPV 9.8 Gran % 87.6 H Lymph % (Auto) 6.7 L [place] % (Auto) 5.6 Eos % (Auto) 0.0 L Baso % (Auto) 0.1 Gran # 11.17 H Lymph # (Auto) 0.9 L [place] # (Auto) 0.7 H Eos # (Auto) 0.0 Baso # (Auto) 0.01 PT 17.3 H INR 1.50 APTT 36.3 Sodium Potassium Chloride Carbon Dioxide Anion Gap BUN Creatinine Est GFR ( Amer) Est GFR (Non-Af Amer) POC Glucose (mg/dL) 120 H Random Glucose Calcium Phosphorus Magnesium Total Bilirubin AST ALT Alkaline Phosphatase Total Protein Albumin Globulin Albumin/Globulin Ratio ANCA Screen c-ANCA Titer p-ANCA Titer Atypical p-ANCA Titer 08/13/18 08/13/18 08/14/18 16:51 21:41 08:06 WBC RBC Hgb Hct MCV MCH MCHC RDW Plt Count MPV Gran % Lymph % (Auto) [place] % (Auto) Eos % (Auto) Baso % (Auto) Gran # Lymph # (Auto) [place] # (Auto) Eos # (Auto) Baso # (Auto) PT INR APTT Sodium 135 Potassium 4.9 Chloride 112 H Carbon Dioxide 18 L Anion Gap 11 BUN 32 H Creatinine 1.5 H Est GFR ( Amer) 41 Est GFR (Non-Af Amer) 34 POC Glucose (mg/dL) 188 H 168 H Random Glucose 116 H Calcium 8.9 Phosphorus 2.9 Magnesium 2.0 Total Bilirubin 0.8 AST 40 H ALT 66 H Alkaline Phosphatase 464 H Total Protein 4.5 L Albumin 1.8 L Globulin 2.7 Albumin/Globulin Ratio 0.6 L ANCA Screen c-ANCA Titer p-ANCA Titer Atypical p-ANCA Titer 08/14/18 08/14/18 10:50 10:50 WBC 15.9 H D RBC 4.41 Hgb 13.3 Hct 39.2 MCV 88.9 MCH 30.2 MCHC 33.9 RDW 18.8 H Plt Count 140 MPV 10.1 Gran % Lymph % (Auto) [place] % (Auto) Eos % (Auto) Baso % (Auto) Gran # Lymph # (Auto) [place] # (Auto) Eos # (Auto) Baso # (Auto) PT INR APTT Sodium 135 Potassium 4.7 Chloride 113 H Carbon Dioxide 17 L Anion Gap 10 BUN 36 H Creatinine 1.7 H Est GFR ( Amer) 35 Est GFR (Non-Af Amer) 29 POC Glucose (mg/dL) Random Glucose 134 H Calcium 9.0 Phosphorus 3.0 Magnesium 2.0 Total Bilirubin 0.8 AST 28 ALT 58 H Alkaline Phosphatase 412 H Total Protein 4.4 L Albumin 1.8 L Globulin 2.6 Albumin/Globulin Ratio 0.7 L ANCA Screen c-ANCA Titer p-ANCA Titer Atypical p-ANCA Titer Fingerstick Blood Sugar Results: 172 Review of Systems - Review of Systems Systems not reviewed;Unavailable: Altered Mental Status Critical Care Progress Note - Extremities/Vascular Does the Patient have a Central Venous Catheter?: No Does the Patient need a Central Venous Catheter?: No Does the Patient have a [place] Catheter?: No Does the Patient need a [place] Catheter?: No - Prophylaxis GI Prophylaxis GI: PPI - Nutrition Nutrition: Nutrition Category Date Time Status Liquid Diet [DIET] Diets 08/13/18 Lunch Ordered Assessment/Plan - Assessment and Plan (Free Text) Assessment: Patient is a 77 y/o F with a PMHx HTN, DMII, JOSE, Crohn's disease, dementia and now with admission diagnosis of new watershed stroke, NSTEMI - elevated troponins 2/2 stroke, and new onset atrial fibrillation with RVR who presented to the ICU with multiple episodes of hematochezia. Plan: Neuro/Psych - AAOx1 with decline in mental status since admission - Pending MRI Brain to r/o another possible stroke - Neuro recs appreciated - Patient presented for delirium 2/2 new watershed stroke - c/w PT/OT Cardiovascular - Afib with RVR overnight and into the morning (HR 150s); s/p x3 cardizem IVP - will f/u cbc, cmp, Mg, phos to r/o electrolyte disturbances as cause of arrhythmia - Continue to maintain normal blood pressure as to prevent further watershed infarcts - Continue to hold Eliquis and Aspirin due to rectal bleed and stroke - c/w midodrine 5mg PO TID for blood pressure support - c/w Lipitor - NSTEMI - troponins elevated 2/2 stroke - Maintain normotensive Pulmonary - Maintain O2 sat >90% - Resting comfortably on room air; no signs of respiratory distress Gastrointestinal - No bloody bowel movements overnight - continue to monitor H/H - GI recs appreciated: avoid NOACs. If GI bleed persists, recommend a repeat bleeding scan. - Flex sigmoidoscopy (08/08) revealed active Crohns with ulcerations; EGD was essentially negative - c/w mesalamine, rowasa enemas, prednisone 20mg BID, and flagyl per GI recs - Bleeding scan (08/05): no evidence of active GI bleed Renal: - c/w IVF LR given patient's hyperchloremia and its effect on the kidneys - monitor Cr level Infectious disease - completed cefepime and flagyl day # 10 for pancolitis 2/2 Crohns flare. Consider discontinuation of antibiotics - ID on consult. Recs appreciated. - C. Diff neg, stool cx neg Heme - s/p x2 pRBC transfusions on 08/12 (Total transfusions x4 pRBCs during hospital course); Hgb is now stable. - Repeat cbc and coag panel stable DVT ppx: SCDs GI ppx: PTX 40mg PO daily Palliative Care is on board. Patient is DNR/DNI. Dispo: Afib with RVR overnight - not rate controlled. Continue to monitor patient in the ICU. Case was discussed and reviewed with Attending Physician, Dr. Manning <Mukul Manning - Last Filed: 08/14/18 13:07> CCU Objective - Vital Signs / Intake & Output Vital Signs (Last 4 hours): Vital Signs Pulse Resp BP Pulse Ox 08/14/18 11:40 122 H 28 H 98 08/14/18 11:30 125 H 20 08/14/18 11:20 123 H 99 08/14/18 11:10 122 H 21 97 08/14/18 11:07 132 H 21 190/160 H 100 08/14/18 11:00 140 H 19 100 08/14/18 10:50 129 H 18 100 08/14/18 10:40 136 H 20 99 08/14/18 10:30 149 H 23 08/14/18 10:20 157 H 19 100 08/14/18 10:10 94 H 25 H 100 08/14/18 10:00 96 H 17 111/84 98 08/14/18 09:50 91 H 24 100 08/14/18 09:40 95 H 24 99 08/14/18 09:30 101 H 33 H 95 08/14/18 09:22 103 H 105/78 08/14/18 09:20 99 H 30 H 98 08/14/18 09:10 101 H 40 H 94 L 08/14/18 09:00 99 H 25 H 105/78 08/14/18 08:56 101 H 08/14/18 08:54 102 H 22 08/14/18 08:50 102 H 08/14/18 08:47 102 H 20 Intake and Output (Last 8hrs): Intake & Output 08/13/18 08/14/18 08/14/18 22:59 06:59 14:59 Intake Total 1400 1500 Balance 1400 1500 Intake: IV 1100 1500 abx 1100 1500 Oral 300 Other: # Bowel Movements 2 - Medications Active Medications: Active Medications Generic Name Dose Route Start Last Admin Trade Name Freq PRN Reason Stop Dose Admin Acetaminophen 650 mg 08/09/18 21:57 08/12/18 20:46 Tylenol 325mg Tab PO 650 mg Q6H PRN Administration Pain, moderate (4-7) Albuterol/Ipratropium 3 ml 08/09/18 15:15 08/14/18 07:50 Duoneb 3 Mg/0.5 Mg (3 Ml) Ud IH 3 ml [id number] ANGELES Administration Atorvastatin Calcium 40 mg 07/30/18 17:00 08/13/18 17:46 Lipitor PO 40 mg DIN ANGELES Administration Cholecalciferol 2,000 intlu 07/29/18 10:00 08/14/18 09:23 Vitamin D PO 2,000 intlu DAILY ANGELES Administration Diltiazem HCl 60 mg 08/05/18 14:00 08/14/18 09:22 Cardizem PO 60 mg TID ANGELES Administration Guaifenesin 100 mg 08/09/18 15:30 08/09/18 15:41 Robitussin PO 100 mg Q4H PRN Administration Cough Lactated Ringer's 1,000 mls @ 100 mls/hr 08/13/18 10:45 08/14/18 01:18 Lactated Ringer's IV 100 mls/hr .Q10H ANGELES Administration Insulin Human Regular 0 units 07/28/18 22:00 08/14/18 08:47 Humulin R Med SC 1 unit ACHS ANGELES Administration Protocol Lorazepam 0.25 mg 08/03/18 10:23 08/09/18 21:48 Ativan PO 0.25 mg Q6 PRN Administration Anxiety Protocol Mesalamine 500 mg 08/05/18 10:00 08/14/18 09:22 Pentasa PO 500 mg QID ANGELES Administration Midodrine 5 mg 08/11/18 14:00 08/14/18 09:22 Proamatine PO 5 mg TID ANGELES Administration Ondansetron HCl 4 mg 08/04/18 12:59 08/06/18 06:39 Zofran Inj IVP 4 mg Q4H PRN Administration Nausea/Vomiting Pantoprazole Sodium 40 mg 07/29/18 06:00 08/14/18 05:42 Protonix Ec Tab PO 40 mg 0600 ANGELES Administration Prednisone 20 mg 08/09/18 18:00 08/14/18 09:24 Prednisone Tab PO 20 mg BID ANGELES Administration Quetiapine Fumarate 12.5 mg 08/04/18 12:46 08/13/18 21:57 Seroquel PO 12.5 mg HS PRN Administration Agitation Protocol - Patient Studies Lab Studies: Lab Studies 08/14/18 08/14/18 08/14/18 Range/Units 10:50 10:50 08:06 WBC 15.9 H D (4.5-11.0) 10^3/uL RBC 4.41 (3.5-6.1) 10^6/uL Hgb 13.3 (12.0-16.0) g/dL Hct 39.2 (36.0-48.0) % MCV 88.9 (80.0-105.0) fl MCH 30.2 (25.0-35.0) pg MCHC 33.9 (31.0-37.0) g/dl RDW 18.8 H (11.5-14.5) % Plt Count 140 (120.0-450.0) 10^3/uL MPV 10.1 (7.0-11.0) fl Gran % (50.0-68.0) % Lymph % (Auto) (22.0-35.0) % [place] % (Auto) (1.0-6.0) % Eos % (Auto) (1.5-5.0) % Baso % (Auto) (0.0-3.0) % Gran # (1.4-6.5) Lymph # (Auto) (1.2-3.4) [place] # (Auto) (0.1-0.6) Eos # (Auto) (0.0-0.7) Baso # (Auto) (0.0-2.0) K/mm3 PT (9.4-12.5) SECONDS INR APTT (25.1-36.5) Seconds Sodium 135 (132-148) mmol/L Potassium 4.7 (3.6-5.0) mmol/L Chloride 113 H (98-107) mmol/L Carbon Dioxide 17 L (21-33) mmol/L Anion Gap 10 (10-20) BUN 36 H (7-21) mg/dL Creatinine 1.7 H (0.7-1.2) mg/dl Est GFR ( Amer) 35 Est GFR (Non-Af Amer) 29 POC Glucose (mg/dL) 168 H (65-110) mg/dL Random Glucose 134 H (70-110) mg/dL Calcium 9.0 (8.4-10.5) mg/dL Phosphorus 3.0 (2.5-4.5) mg/dL Magnesium 2.0 (1.7-2.2) mg/dL Total Bilirubin 0.8 (0.2-1.3) mg/dL AST 28 (14-36) U/L ALT 58 H (7-56) U/L Alkaline Phosphatase 412 H (38-126) U/L Total Protein 4.4 L (5.8-8.3) g/dL Albumin 1.8 L (3.0-4.8) g/dL Globulin 2.6 gm/dL Albumin/Globulin Ratio 0.7 L (1.1-1.8) ANCA Screen (NEGATIVE) c-ANCA Titer p-ANCA Titer Atypical p-ANCA Titer 08/13/18 08/13/18 08/13/18 Range/Units 21:41 16:51 16:51 WBC 12.7 H (4.5-11.0) 10^3/uL RBC 4.39 (3.5-6.1) 10^6/uL Hgb 13.1 (12.0-16.0) g/dL Hct 38.9 (36.0-48.0) % MCV 88.6 (80.0-105.0) fl MCH 29.8 (25.0-35.0) pg MCHC 33.7 (31.0-37.0) g/dl RDW 18.7 H (11.5-14.5) % Plt Count 109 L (120.0-450.0) 10^3/uL MPV 9.8 (7.0-11.0) fl Gran % 87.6 H (50.0-68.0) % Lymph % (Auto) 6.7 L (22.0-35.0) % [place] % (Auto) 5.6 (1.0-6.0) % Eos % (Auto) 0.0 L (1.5-5.0) % Baso % (Auto) 0.1 (0.0-3.0) % Gran # 11.17 H (1.4-6.5) Lymph # (Auto) 0.9 L (1.2-3.4) [place] # (Auto) 0.7 H (0.1-0.6) Eos # (Auto) 0.0 (0.0-0.7) Baso # (Auto) 0.01 (0.0-2.0) K/mm3 PT (9.4-12.5) SECONDS INR APTT (25.1-36.5) Seconds Sodium 135 (132-148) mmol/L Potassium 4.9 (3.6-5.0) mmol/L Chloride 112 H (98-107) mmol/L Carbon Dioxide 18 L (21-33) mmol/L Anion Gap 11 (10-20) BUN 32 H (7-21) mg/dL Creatinine 1.5 H (0.7-1.2) mg/dl Est GFR ( Amer) 41 Est GFR (Non-Af Amer) 34 POC Glucose (mg/dL) 188 H (65-110) mg/dL Random Glucose 116 H (70-110) mg/dL Calcium 8.9 (8.4-10.5) mg/dL Phosphorus 2.9 (2.5-4.5) mg/dL Magnesium 2.0 (1.7-2.2) mg/dL Total Bilirubin 0.8 (0.2-1.3) mg/dL AST 40 H (14-36) U/L ALT 66 H (7-56) U/L Alkaline Phosphatase 464 H (38-126) U/L Total Protein 4.5 L (5.8-8.3) g/dL Albumin 1.8 L (3.0-4.8) g/dL Globulin 2.7 gm/dL Albumin/Globulin Ratio 0.6 L (1.1-1.8) ANCA Screen (NEGATIVE) c-ANCA Titer p-ANCA Titer Atypical p-ANCA Titer 08/13/18 08/13/18 08/13/18 Range/Units 16:51 16:25 13:03 WBC (4.5-11.0) 10^3/uL RBC (3.5-6.1) 10^6/uL Hgb (12.0-16.0) g/dL Hct (36.0-48.0) % MCV (80.0-105.0) fl MCH (25.0-35.0) pg MCHC (31.0-37.0) g/dl RDW (11.5-14.5) % Plt Count (120.0-450.0) 10^3/uL MPV (7.0-11.0) fl Gran % (50.0-68.0) % Lymph % (Auto) (22.0-35.0) % [place] % (Auto) (1.0-6.0) % Eos % (Auto) (1.5-5.0) % Baso % (Auto) (0.0-3.0) % Gran # (1.4-6.5) Lymph # (Auto) (1.2-3.4) [place] # (Auto) (0.1-0.6) Eos # (Auto) (0.0-0.7) Baso # (Auto) (0.0-2.0) K/mm3 PT 17.3 H (9.4-12.5) SECONDS INR 1.50 APTT 36.3 (25.1-36.5) Seconds Sodium (132-148) mmol/L Potassium (3.6-5.0) mmol/L Chloride (98-107) mmol/L Carbon Dioxide (21-33) mmol/L Anion Gap (10-20) BUN (7-21) mg/dL Creatinine (0.7-1.2) mg/dl Est GFR ( Amer) Est GFR (Non-Af Amer) POC Glucose (mg/dL) 120 H 110 (65-110) mg/dL Random Glucose (70-110) mg/dL Calcium (8.4-10.5) mg/dL Phosphorus (2.5-4.5) mg/dL Magnesium (1.7-2.2) mg/dL Total Bilirubin (0.2-1.3) mg/dL AST (14-36) U/L ALT (7-56) U/L Alkaline Phosphatase (38-126) U/L Total Protein (5.8-8.3) g/dL Albumin (3.0-4.8) g/dL Globulin gm/dL Albumin/Globulin Ratio (1.1-1.8) ANCA Screen (NEGATIVE) c-ANCA Titer p-ANCA Titer Atypical p-ANCA Titer 08/10/18 08/10/18 Range/Units 05:45 05:00 WBC (4.5-11.0) 10^3/uL RBC (3.5-6.1) 10^6/uL Hgb (12.0-16.0) g/dL Hct (36.0-48.0) % MCV (80.0-105.0) fl MCH (25.0-35.0) pg MCHC (31.0-37.0) g/dl RDW (11.5-14.5) % Plt Count (120.0-450.0) 10^3/uL MPV (7.0-11.0) fl Gran % (50.0-68.0) % Lymph % (Auto) (22.0-35.0) % [place] % (Auto) (1.0-6.0) % Eos % (Auto) (1.5-5.0) % Baso % (Auto) (0.0-3.0) % Gran # (1.4-6.5) Lymph # (Auto) (1.2-3.4) [place] # (Auto) (0.1-0.6) Eos # (Auto) (0.0-0.7) Baso # (Auto) (0.0-2.0) K/mm3 PT (9.4-12.5) SECONDS INR APTT (25.1-36.5) Seconds Sodium (132-148) mmol/L Potassium (3.6-5.0) mmol/L Chloride (98-107) mmol/L Carbon Dioxide (21-33) mmol/L Anion Gap (10-20) BUN (7-21) mg/dL Creatinine (0.7-1.2) mg/dl Est GFR ( Amer) Est GFR (Non-Af Amer) POC Glucose (mg/dL) (65-110) mg/dL Random Glucose (70-110) mg/dL Calcium (8.4-10.5) mg/dL Phosphorus (2.5-4.5) mg/dL Magnesium (1.7-2.2) mg/dL Total Bilirubin (0.2-1.3) mg/dL AST (14-36) U/L ALT (7-56) U/L Alkaline Phosphatase (38-126) U/L Total Protein (5.8-8.3) g/dL Albumin (3.0-4.8) g/dL Globulin gm/dL Albumin/Globulin Ratio (1.1-1.8) ANCA Screen Negative Negative (NEGATIVE) c-ANCA Titer TNP TNP p-ANCA Titer TNP TNP Atypical p-ANCA Titer TNP TNP Laboratory Results - last 24 hr 08/10/18 08/10/18 08/13/18 05:00 05:45 13:03 WBC RBC Hgb Hct MCV MCH MCHC RDW Plt Count MPV Gran % Lymph % (Auto) [place] % (Auto) Eos % (Auto) Baso % (Auto) Gran # Lymph # (Auto) [place] # (Auto) Eos # (Auto) Baso # (Auto) PT INR APTT Sodium Potassium Chloride Carbon Dioxide Anion Gap BUN Creatinine Est GFR ( Amer) Est GFR (Non-Af Amer) POC Glucose (mg/dL) 110 Random Glucose Calcium Phosphorus Magnesium Total Bilirubin AST ALT Alkaline Phosphatase Total Protein Albumin Globulin Albumin/Globulin Ratio ANCA Screen Negative Negative c-ANCA Titer TNP TNP p-ANCA Titer TNP TNP Atypical p-ANCA Titer TNP TNP 08/13/18 08/13/18 08/13/18 16:25 16:51 16:51 WBC 12.7 H RBC 4.39 Hgb 13.1 Hct 38.9 MCV 88.6 MCH 29.8 MCHC 33.7 RDW 18.7 H Plt Count 109 L MPV 9.8 Gran % 87.6 H Lymph % (Auto) 6.7 L [place] % (Auto) 5.6 Eos % (Auto) 0.0 L Baso % (Auto) 0.1 Gran # 11.17 H Lymph # (Auto) 0.9 L [place] # (Auto) 0.7 H Eos # (Auto) 0.0 Baso # (Auto) 0.01 PT 17.3 H INR 1.50 APTT 36.3 Sodium Potassium Chloride Carbon Dioxide Anion Gap BUN Creatinine Est GFR ( Amer) Est GFR (Non-Af Amer) POC Glucose (mg/dL) 120 H Random Glucose Calcium Phosphorus Magnesium Total Bilirubin AST ALT Alkaline Phosphatase Total Protein Albumin Globulin Albumin/Globulin Ratio ANCA Screen c-ANCA Titer p-ANCA Titer Atypical p-ANCA Titer 08/13/18 08/13/18 08/14/18 16:51 21:41 08:06 WBC RBC Hgb Hct MCV MCH MCHC RDW Plt Count MPV Gran % Lymph % (Auto) [place] % (Auto) Eos % (Auto) Baso % (Auto) Gran # Lymph # (Auto) [place] # (Auto) Eos # (Auto) Baso # (Auto) PT INR APTT Sodium 135 Potassium 4.9 Chloride 112 H Carbon Dioxide 18 L Anion Gap 11 BUN 32 H Creatinine 1.5 H Est GFR ( Amer) 41 Est GFR (Non-Af Amer) 34 POC Glucose (mg/dL) 188 H 168 H Random Glucose 116 H Calcium 8.9 Phosphorus 2.9 Magnesium 2.0 Total Bilirubin 0.8 AST 40 H ALT 66 H Alkaline Phosphatase 464 H Total Protein 4.5 L Albumin 1.8 L Globulin 2.7 Albumin/Globulin Ratio 0.6 L ANCA Screen c-ANCA Titer p-ANCA Titer Atypical p-ANCA Titer 08/14/18 08/14/18 10:50 10:50 WBC 15.9 H D RBC 4.41 Hgb 13.3 Hct 39.2 MCV 88.9 MCH 30.2 MCHC 33.9 RDW 18.8 H Plt Count 140 MPV 10.1 Gran % Lymph % (Auto) [place] % (Auto) Eos % (Auto) Baso % (Auto) Gran # Lymph # (Auto) [place] # (Auto) Eos # (Auto) Baso # (Auto) PT INR APTT Sodium 135 Potassium 4.7 Chloride 113 H Carbon Dioxide 17 L Anion Gap 10 BUN 36 H Creatinine 1.7 H Est GFR ( Amer) 35 Est GFR (Non-Af Amer) 29 POC Glucose (mg/dL) Random Glucose 134 H Calcium 9.0 Phosphorus 3.0 Magnesium 2.0 Total Bilirubin 0.8 AST 28 ALT 58 H Alkaline Phosphatase 412 H Total Protein 4.4 L Albumin 1.8 L Globulin 2.6 Albumin/Globulin Ratio 0.7 L ANCA Screen c-ANCA Titer p-ANCA Titer Atypical p-ANCA Titer Critical Care Progress Note - Nutrition Nutrition: Nutrition Category Date Time Status Liquid Diet [DIET] Diets 08/13/18 Lunch Ordered Attending/Attestation - Attestation I have personally seen and examined this patient.: Yes I have fully participated in the care of the patient.: Yes I have reviewed all pertinent clinical information: Yes Notes (Text): 08/14/18 12:44 77 yo female with l 08/14/18 12:46 71 yo female who was initially admitted to [facility] with lower GI bleed with hemorrhagic shock, complicated by watershed infarct, supply-demand myocardial ischemia, now much improved with resolution of GI bleeding and hemorrhagic shock, but still a bit confused with hard to control afib/rvr and lionel with rising creatinine. Patient is on LR at 100 cc/hr, doesnt appear hypovolemic, Hb level stable (no more bleeding), K, mg, Phos is wnl. wbc is rising as well--can be sepsis/UTI? behind wbc-osis, rising creatinine and afib with rvr-->started ceftriaxone, ordered urine culture and UA, renal ultrasound and will put Lugo cath in for urine output monitoring, requested renal consult (Dr. Prasad monaco). will continue cardizem PO. Was on eliquis, which was stopped due to recent hemorrhagic shock, will start heparin sc for dvt prophyalxis (INR 1.5)
[2018-08-14] MEDS: cefTRIAXone 1 gm 1 GM/100 ML BAG IVPB SCH (13:49)
--- NOTE | 2018-08-14 14:35 | PN ---
DATE: 08/14/2018 SUBJECTIVE: The patient is seen in the ICU 128-4. Ms. Renuka Arango, she is comfortable. She is afebrile. No fevers. No chills. PHYSICAL EXAMINATION: VITAL SIGNS: Temperature is 97, blood pressure is 114/82, respiratory rate of 18, and heart rate of 100. HEENT: Unremarkable. NECK: Supple. LUNGS: Decreased breath sounds. HEART: Normal S1 and S2. ABDOMEN: Soft and nontender. LABORATORY DATA: Reveals a white count of 12,700, hemoglobin of 13. Chemistry reveals the patient's BUN at 32, creatinine of 1.5. Urinalysis is noted. Microbiology is reviewed. The patient's abdominal films are noted. ASSESSMENT AND PLAN: This is a 77-year-old female with pancolitis, Crohn's disease, cerebrovascular accident, hypertension, diabetes, chronic obstructive lung disease, on day #11 of antibiotics. The patient is also on prednisone. We will discontinue the antibiotics, Flagyl and cefepime. The patient is still on the prednisone. The patient has an ultrasound ordered. The abdomen and MRI of the head was ordered. The patient has had 10 days of antibiotics. We will discontinue the antibiotics and gastrointestinal bleed management as per Gastroenterology. Dr. Manning's note is reviewed from yesterday and we will follow with you. Ranjit Vaca MD
[2018-08-14] MEDS: Albumin Human 25% (12.5 gm/50 ml) IV SCH ×2 (15:04→22:10)
[2018-08-14 15:56] LABS: PH,URINE 5.5 (4.7-8.0); URINE BILIRUBIN SMALL (NEGATIVE); URINE BLOOD LARGE (NEGATIVE); URINE GLUCOSE (UA) NEGATIVE (NEGATIVE); URINE LEUKOCYTE ESTERASE TRACE Leu/uL (NEGATIVE); URINE PROTEIN 100 mg/dL (<30 mg/dL); URINE UROBILINOGEN 0.2 E.U./dL (<1 E.U./dL)
[2018-08-14 15:57] LABS: URINE APPEARANCE CLOUDY (CLEAR); URINE COLOR BROWN (YELLOW)
[2018-08-14 16:16] LABS: URINE WBC 20 - 25 /hpf (0-6)
[2018-08-14 16:17] LABS: URINE AMORPHOUS SEDIMENT FEW; URINE BACTERIA FEW (NEG); URINE RBC TNTC /hpf (0-2)
--- NOTE | 2018-08-14 19:13 | CON ---
DATE: 08/14/2018 LOCATION: [facility]. NEPHROLOGY CONSULTATION Covering for Dr. Prasad Neves. HISTORY OF PRESENT ILLNESS: A 77-year-old female with past medical history of hypertension, diabetes, osteoarthritis, COPD, and suspected Crohn's disease. Initially presented with altered mental status and having hallucinations/delusions. Nephrology now being consulted for acute renal failure. The patient's hospitalization has been complicated by diagnoses of acute ischemic CVAs; also with NSTEMI thought to be from demand ischemia; most recently having hemorrhagic shock in the setting of hematochezia; hematochezia recurred after the patient was restarted on Eliquis, subsequently discontinued with last dose given 3 days ago. The patient has had intermittent hypotension, last occurrence happening 2 days ago. The patient also noted to be having AFib with RVR. The patient currently remains confused, able to answer questions although not always appropriately; currently awaiting transfer to telemetry unit, no reported hematochezia lately. The patient otherwise has been tolerating diet; noted to be markedly edematous and with continued AFib with RVR. She remains on IV fluids with LR at 100 mL/hour, getting p.o. diltiazem 60 mg t.i.d. for RVR and on midodrine 5 mg t.i.d. to avoid hypotension. The patient is also getting treated for likely Crohn's disease flare with recent flexible sigmoidoscopy showing active bleeding from extensively ulcerated mucosa. PAST MEDICAL HISTORY: As above. SOCIAL HISTORY: Unable to obtain. FAMILY HISTORY: Unable to obtain, as the patient is having altered mental status. REVIEW OF SYSTEMS: Review of systems limited to HPI as the patient is having delirium. PHYSICAL EXAMINATION: VITAL SIGNS: Vitals this afternoon, blood pressure 150/69, heart rate 129, respirations 28, temperature 97.8, O2 sat 98% on O2 via nasal cannula. GENERAL: No distress. Alert, conversing, although not making much sense. HEENT: No cervical lymphadenopathy. Unable to adequately examine mucous membranes, as the patient is uncooperative. RESPIRATORY: Lungs are clear to auscultation bilaterally. No rales. No rhonchi. No wheezes. CARDIOVASCULAR: Irregular rate. Tachycardic. No obvious murmurs. GASTROINTESTINAL: Abdomen mildly distended, otherwise nontender, soft. GENITOURINARY: Lugo in place. No bladder distention. SKIN: Warm. Distal extremities. No cyanosis. PSYCHIATRIC: The patient IS having delirium. NEURO: Moving her upper extremities. LABORATORY DATA: CBC: WBC 15.9, hemoglobin 13.3, hematocrit 39.2, and platelets 140,000. Chemistry Panel: Sodium 135, potassium 4.7, chloride 113, bicarbonate 17, BUN is 36, creatinine 1.7 increased from 1.3 yesterday. Glucose 134, calcium 9, phosphorus 3, magnesium 2. AST 28, ALT 58, alkaline phosphatase 412, albumin 1.8. IMAGING STUDIES: Chest x-ray from 08/09 shows lungs clear. ASSESSMENT AND PLAN: 1. Acute kidney injury, most likely acute tubular necrosis in the setting of intermittent hypotension, seen on multiple occasions; the patient is also markedly hypoalbuminemic and therefore is highly susceptible to hemodynamic compromise; otherwise with relatively stable electrolyte status, modest non-anion gap metabolic acidosis noted likely due to normal saline administration that was given previously;being in rapid ventricular response is also not helping and contributing to hemodynamic compromise. 2. Continue LR at 100 mL/hour. 3. Starting IV albumin 25% every 6 hours x6 doses. 4. Agree with obtaining UA and culture. Obtaining urine lytes. 5. Continue midodrine. We will increase dose as needed. 6. Follow up with Cardiology for atrial fibrillation, rate control. 7. We will check urine sediment if renal function does not improve with these measures. Thank you for this referral. We will be following up closely. Chiki Reyes MD
[2018-08-15] MEDS: Albuterol-Ipratrop 3 mg / 0.5 (3 ml) UD IH SCH ×4 (01:28→19:29)
[2018-08-15] MEDS: Lactated Ringer's 1,000 ML IV SCH (02:11)
[2018-08-15] MEDS: Albumin Human 25% (12.5 gm/50 ml) IV SCH (02:11)
[2018-08-15] MEDS: Pantoprazole 40 mg EC Tab PO SCH (05:22)
[2018-08-15 06:33] LABS: GRAN # 8.4 (1.4-6.5); GRAN % 90.8 % (50.0-68.0); LYMPH # 0.6 (1.2-3.4); LYMPH % 6.2 % (22.0-35.0); MEAN CORPUSCULAR HGB CONC 33.7 g/dl (31.0-37.0); MEAN PLATELET VOLUME 9.8 fl (7.0-11.0); MONO # 0.3 (0.1-0.6); RBC 3.73 10^6/uL (3.5-6.1); RED CELL DISTRIBUTION WIDTH 19.2 % (11.5-14.5)
[2018-08-15 06:37] LABS: HEMOGLOBIN 11.2 g/dL (12.0-16.0); WHITE BLOOD COUNT 9.3 10^3/uL (4.5-11.0)
[2018-08-15 07:25] LABS: ALB/GLOB RATIO 0.9 (1.1-1.8); CALCIUM 9.3 mg/dL (8.4-10.5)
--- NOTE | 2018-08-15 07:48 | PN ---
DATE: 08/13/2018 Renuka Arango, 77-year-old, who has had a colonoscopy showing Crohn's, is not currently bleeding. She is noted to be a DNR/DNI. Hemoglobin is stable at 13, transfused a total of 4 units of blood. I will follow up here without surgical intent. Cruz Adams MD
--- NOTE | 2018-08-15 08:52 | CP.PCM.PN ---
<Francisco J Milan - Last Filed: 08/15/18 13:06> Subjective - Date & Time of Evaluation Date of Evaluation: 08/15/18 Time of Evaluation: 07:50 - Subjective Subjective: Francisco J Milan PGY-1 Progress Note for Hospitalist Service Patient seen and evaluated at bedside. Currently in A fib at rate of 80s. Patient noted to have poor urine output yesterday, so Torrez was placed. Brain MRI pending for acute change in mental status. No further episodes of bloody bowel movements reported. Daughter at bedside. Objective - Vital Signs/Intake and Output Vital Signs (last 24 hours): Temp Pulse Resp BP Pulse Ox 97.8 F 77 16 110/48 L 93 L 08/14/18 16:00 08/15/18 07:00 08/15/18 07:00 08/15/18 07:00 08/15/18 07:00 Intake and Output: 08/15/18 08/15/18 06:59 18:59 Intake Total 1100 Output Total 100 Balance 1000 - Medications Medications: Current Medications Acetaminophen (Tylenol 325mg Tab) 650 mg PO Q6H PRN PRN Reason: Pain, moderate (4-7) Last Admin: 08/12/18 20:46 Dose: 650 mg Albuterol/Ipratropium (Duoneb 3 Mg/0.5 Mg (3 Ml) Ud) 3 ml IH [id number] [facility] Last Admin: 08/15/18 07:47 Dose: 3 ml Atorvastatin Calcium (Lipitor) 40 mg PO DIN [facility] Last Admin: 08/14/18 17:09 Dose: 40 mg Cholecalciferol (Vitamin D) 2,000 intlu PO DAILY [facility] Last Admin: 08/14/18 09:23 Dose: 2,000 intlu Diltiazem HCl (Cardizem) 60 mg PO TID [facility] Last Admin: 08/14/18 17:10 Dose: 60 mg Guaifenesin (Robitussin) 100 mg PO Q4H PRN PRN Reason: Cough Last Admin: 08/09/18 15:41 Dose: 100 mg Heparin Sodium (Porcine) (Heparin) 5,000 units SC Q8 [facility]; Protocol Last Admin: 08/15/18 05:22 Dose: 5,000 units Lactated Ringer's (Lactated Ringer's) 1,000 mls @ 100 mls/hr IV .Q10H [facility] Last Admin: 08/15/18 02:11 Dose: 100 mls/hr Ceftriaxone Sodium (Rocephin 1 Gram Ivpb) 1 gm in 100 mls @ 100 mls/hr IVPB DAILY [facility]; Protocol Last Admin: 08/14/18 13:49 Dose: 100 mls/hr Albumin Human (Albumin Human 25% (25 Gm/100 Ml)) 100 mls @ 1 mls/min IV ONCE ONE Stop: 08/15/18 10:39 Insulin Human Regular (Humulin R Med) 0 units SC ACHS [facility]; Protocol Last Admin: 08/14/18 22:23 Dose: Not Given Lorazepam (Ativan) 0.25 mg PO Q6 PRN; 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 Reason: Anxiety Last Admin: 08/09/18 21:48 Dose: 0.25 mg Mesalamine (Pentasa) 500 mg PO QID [facility] Last Admin: 08/14/18 22:08 Dose: 500 mg Midodrine (Proamatine) 5 mg PO TID [facility] Last Admin: 08/14/18 17:10 Dose: 5 mg Ondansetron HCl (Zofran Inj) 4 mg IVP Q4H PRN PRN Reason: Nausea/Vomiting Last Admin: 08/06/18 06:39 Dose: 4 mg Pantoprazole Sodium (Protonix Ec Tab) 40 mg PO 0600 [facility] Last Admin: 08/15/18 05:22 Dose: 40 mg Prednisone (Prednisone Tab) 20 mg PO BID [facility] Last Admin: 08/14/18 17:11 Dose: 20 mg Quetiapine Fumarate (Seroquel) 12.5 mg PO HS PRN; 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 Reason: Agitation Last Admin: 08/14/18 22:07 Dose: 12.5 mg - Labs Labs: 08/15/18 05:30 08/15/18 05:30 PT 17.3 SECONDS (9.4-12.5) H 08/13/18 16:51 INR 1.50 08/13/18 16:51 APTT 36.3 Seconds (25.1-36.5) 08/13/18 16:51 - Additional Findings Additional findings: - Constitutional Appears: Non-toxic, No Acute Distress, Unkempt - Head Exam Head Exam: ATRAUMATIC, NORMOCEPHALIC - Eye Exam Eye Exam: EOMI, Normal appearance - ENT Exam ENT Exam: Mucous Membranes Moist, Normal Exam - Neck Exam Neck Exam: Normal Inspection - Respiratory Exam Respiratory Exam: Clear to Ausculation Bilateral, NORMAL BREATHING PATTERN - Cardiovascular Exam Cardiovascular Exam: IRREGULAR RHYTHM, +S1, +S2 - GI/Abdominal Exam GI & Abdominal Exam: Soft, Normal Bowel Sounds. absent: Tenderness - Extremities Exam Extremities Exam: Normal Capillary Refill, +2/4 Pitting Edema - Neurological Exam Neurological Exam: Alert, Awake. absent: Oriented x2, mentation improved from yesterday - Skin Skin Exam: Dry, Intact, Warm Assessment and Plan - Assessment and Plan (Free Text) Assessment: 77 yo F with PMHx of HTN, DM, osteoarthritis, COPD and suspected Crohn's Disease 2014 (not currently on maintenance therapy) presenting with AMS. Active treatment of NSTEMI, bilateral ischemic CVAs on ASA with Plavix CURRENTLY held 2/2 concern for diarrhea with hematochezia. CT A/P PO contrast showed thickening of small bowel, descending, and recto-sigmoid colon. Patient is a candidate for TCU but also had suicidal intent during hospital course placed on 1:1. Patient has been cleared by psych and 1:1 precautions was discontinued. Recently, patient had a new onset of Afib with RVR. Patient started on anticoagulation (Eliquis), however, patient is having active rectal bleeding so currently on hold. Transferred to telemetry 08/13. Found to have poor urine output so Nephrology was consulted. Pending brain MRI. F/u LE Duplex to r/o DVT. Possible upgrade pending MRI brain results. Plan: LISETTE BUN/Cr 38/1.6, resolved leukocytosis Torrez placed - strict Is and Os 425 cc output noted yesterday, 175 cc output measured this morning f/u renal U/S f/u urine studies Nephro consult - Dr. Reyes - likely ATN in setting of intermittent hypotension. IV albumin, Midodrine 10 mg PO q8, LR @ 100. F/u repeat CXR and UA, f/u 24 hr urine protein Leukocytosis - resolved 12.7 to 9.3 today continue to monitor GI Bleed 2/2 Crohn's Flare - s/p 1 unit pRBCs - CT A/P (08/03): segmental circumferential mucal thickening in proximal small bowel and mild distal descending colon and sigmoid colon. May represent acute, infectious, or inflammatory etiology. Severe diffuse anasarca. - Bleeding scan (08/05): no evidence of active GI bleed IVF LR @ 100 cc/hr - s/p flex sig and endoscopy 08/08 * negative EGD, no active upper GI bleeding, no gastric ulcers * Flex sig to 40cm with Crohn Disease score of 14, ulcerations - GI consulted. Recs appreciated. - continue rowasa enemas, pentasa 500 mg PO QID and flagyl 500 mg IV Q8 -IBD series 08/13: nonobstructive gas pattern Delirium 2/2 New Watershed Stroke - Ativan .25 mg q6 prn for agitation - Cardio does not recommend PAT[facility] - PT recommends acute rehab - Brain MRI (07/30): multiple small cortical and subcortical infarcts in both hemispheres (R>L). Possibly due to hypotensive watershed infarct. - Head/Neck CTA (07/30): negative - Echo (07/31): EF 62%. Mod-severe aortic regurgitation. Mild pulmonary HTN. - Neuro recs appreciated - Psychiatry recs appreciated - repeat brain MRI pending - duplex LE pending Afib with RVR - rate controlled, currently in 80's - Eliquis held d/t hematochezia - Cardizem 60 mg PO TID per Dr Talbert - Lopressor 5mg IVP prn - Cardio recs appreciated - Dr. Talbert Fever with septic workup - resolved - BCx, Ucx negative - patient afebrile, no leukocytosis Suicidal intent - resolved - Psych recs appreciated - 1:1 precautions discontinued; cleared by psych NSTEMI - elevated troponins 2/2 stroke - No cath at this time. Continue medical management. - trops 0.18 -> .14 -secondary to stroke Hx of HTN - Recent SBP trending in the 90s - BP meds held at this time Hx of DM II - continue to monitor - ISS PPx, Diet, Disposition -DVT: SCDs, no anticoagulation at this time -GI: protonix -PT on board: acute rehab recs -Dispo: patient is DNR/DNI, palliative on board. Patient is still pending an accepting facility [facility] vs [facility]. EARC was done and approved for 10 days. Good until 08/17 Patient seen, case reviewed and plan approved by Dr. Quevedo. Francisco J Milan, PGY-1 <Milagros Quevedo - Last Filed: 08/15/18 17:13> Objective - Vital Signs/Intake and Output Vital Signs (last 24 hours): Temp Pulse Resp BP Pulse Ox 97.8 F 73 16 121/61 93 L 08/14/18 16:00 08/15/18 15:53 08/15/18 07:00 08/15/18 15:08 08/15/18 07:00 Intake and Output: 08/15/18 08/15/18 06:59 18:59 Intake Total 1100 Output Total 100 Balance 1000 - Medications Medications: Current Medications Acetaminophen (Tylenol 325mg Tab) 650 mg PO Q6H PRN PRN Reason: Pain, moderate (4-7) Last Admin: 08/12/18 20:46 Dose: 650 mg Albuterol/Ipratropium (Duoneb 3 Mg/0.5 Mg (3 Ml) Ud) 3 ml IH [id number] [facility] Last Admin: 08/15/18 13:12 Dose: Not Given Atorvastatin Calcium (Lipitor) 40 mg PO DIN [facility] Last Admin: 08/14/18 17:09 Dose: 40 mg Cholecalciferol (Vitamin D) 2,000 intlu PO DAILY [facility] Last Admin: 08/15/18 09:30 Dose: 2,000 intlu Diltiazem HCl (Cardizem) 60 mg PO TID [facility] Last Admin: 08/15/18 15:08 Dose: 60 mg Guaifenesin (Robitussin) 100 mg PO Q4H PRN PRN Reason: Cough Last Admin: 08/09/18 15:41 Dose: 100 mg Ceftriaxone Sodium (Rocephin 1 Gram Ivpb) 1 gm in 100 mls @ 100 mls/hr IVPB DAILY [facility]; Protocol Last Admin: 08/15/18 09:29 Dose: 100 mls/hr Albumin Human (Albumin Human 25% (25 Gm/100 Ml)) 100 mls @ 1 mls/min IVPB ONCE ONE Stop: 08/15/18 19:39 Insulin Human Regular (Humulin R Med) 0 units SC ACHS [facility]; Protocol Last Admin: 08/15/18 14:59 Dose: Not Given Lorazepam (Ativan) 0.25 mg PO Q6 PRN; 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 Reason: Anxiety Last Admin: 08/15/18 12:50 Dose: 0.25 mg Lorazepam (Ativan) 0.5 mg IVP ONCE PRN; 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 Reason: Anxiety Mesalamine (Pentasa) 500 mg PO QID [facility] Last Admin: 08/15/18 15:08 Dose: 500 mg Midodrine (Proamatine) 10 mg PO Q8 [facility] Last Admin: 08/15/18 15:07 Dose: 10 mg Ondansetron HCl (Zofran Inj) 4 mg IVP Q4H PRN PRN Reason: Nausea/Vomiting Last Admin: 08/06/18 06:39 Dose: 4 mg Pantoprazole Sodium (Protonix Ec Tab) 40 mg PO 0600 [facility] Last Admin: 08/15/18 05:22 Dose: 40 mg Prednisone (Prednisone Tab) 20 mg PO BID [facility] Last Admin: 08/15/18 09:30 Dose: 20 mg Quetiapine Fumarate (Seroquel) 12.5 mg PO HS PRN; 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 Reason: Agitation Last Admin: 08/14/18 22:07 Dose: 12.5 mg - Labs Labs: 08/15/18 05:30 08/15/18 05:30 PT 17.3 SECONDS (9.4-12.5) H 08/13/18 16:51 INR 1.50 08/13/18 16:51 APTT 36.3 Seconds (25.1-36.5) 08/13/18 16:51 Attending/Attestation - Attestation I have personally seen and examined this patient.: Yes I have fully participated in the care of the patient.: Yes I have reviewed all pertinent clinical information, including history, physical exam and plan: Yes Notes (Text): 08/15/18 17:10 77 year old female with past medical history of Crohn's disease, COPD, hypertension and diabetes who presented with delirium. She was found to have multiple small cortical and subcortical infarcts in both hemispheres on MRI brain. She was also found to have possible NSTEMI. She was started on aspirin and plavix which were later discontinue secondary to rectal bleeding which resolved. She was later started on eliquis for new onset afib with rvr, after discussing risks and benefits with daughter, but this was also discontinued secondary to recurrent GI bleed. GI is following for Crohn's flare and started patient on rowasa, pentasa and prednisone. She is s/p flexible sigmoidoscopy and endoscopy with findings consistent with Crohn's disease. Patient's mental status continues to wax and wane. Psychiatry and neurology are following and she is due for repeat MRI brain today. Yesterday she was noted to have decreased urine output and LISETTE. She is on IVF and torrez was placed for measuring Is/Os. Nephrology evaluation was shana reciated. Today hemoglobin came down from 13 to 11. She is on heparin sq for dvt prophylaxis. Will hold for now given recent GIB and start SCDs if LE doppler is negative. Daughter is at bedside and questions were answered. Milagros Quevedo MD Hospitalist.
[2018-08-15] MEDS: Insulin Reg-MEDIUM-Coverage SC SCH ×4 (09:04→21:00)
[2018-08-15] MEDS: cefTRIAXone 1 gm 1 GM/100 ML BAG IVPB SCH (09:29)
[2018-08-15] MEDS: Cholecalciferol 1,000 INTLU TAB PO SCH (09:30)
[2018-08-15] MEDS: Mesalamine ER Cap 500 MG PO SCH ×4 (09:30→23:32)
--- NOTE | 2018-08-15 09:47 | CP.PCM.PN ---
Subjective - Date & Time of Evaluation Date of Evaluation: 08/15/18 Time of Evaluation: 09:44 - Subjective Subjective: Nephrology Progress Note for Dr. Reyes Patient seen and examined at bedside. Patient is altered at present time. No acute events overnight. ROS unobtainable due to patient's mental status. Objective - Vital Signs/Intake and Output Vital Signs (last 24 hours): Temp Pulse Resp BP Pulse Ox 97.8 F 86 16 104/40 L 93 L 08/14/18 16:00 08/15/18 09:30 08/15/18 07:00 08/15/18 09:30 08/15/18 07:00 Intake and Output: 08/15/18 08/15/18 06:59 18:59 Intake Total 1100 Output Total 100 Balance 1000 - Medications Medications: Current Medications Acetaminophen (Tylenol 325mg Tab) 650 mg PO Q6H PRN PRN Reason: Pain, moderate (4-7) Last Admin: 08/12/18 20:46 Dose: 650 mg Albuterol/Ipratropium (Duoneb 3 Mg/0.5 Mg (3 Ml) Ud) 3 ml IH [id number] [facility] Last Admin: 08/15/18 07:47 Dose: 3 ml Atorvastatin Calcium (Lipitor) 40 mg PO DIN [facility] Last Admin: 08/14/18 17:09 Dose: 40 mg Cholecalciferol (Vitamin D) 2,000 intlu PO DAILY [facility] Last Admin: 08/15/18 09:30 Dose: 2,000 intlu Diltiazem HCl (Cardizem) 60 mg PO TID [facility] Last Admin: 08/15/18 09:30 Dose: 60 mg Guaifenesin (Robitussin) 100 mg PO Q4H PRN PRN Reason: Cough Last Admin: 08/09/18 15:41 Dose: 100 mg Heparin Sodium (Porcine) (Heparin) 5,000 units SC Q8 [facility]; Protocol Last Admin: 08/15/18 05:22 Dose: 5,000 units Lactated Ringer's (Lactated Ringer's) 1,000 mls @ 100 mls/hr IV .Q10H [facility] Last Admin: 08/15/18 02:11 Dose: 100 mls/hr Ceftriaxone Sodium (Rocephin 1 Gram Ivpb) 1 gm in 100 mls @ 100 mls/hr IVPB DAILY [facility]; Protocol Last Admin: 08/15/18 09:29 Dose: 100 mls/hr Albumin Human (Albumin Human 25% (25 Gm/100 Ml)) 100 mls @ 1 mls/min IV ONCE ONE Stop: 08/15/18 10:39 Last Admin: 08/15/18 09:05 Dose: 1 mls/min Insulin Human Regular (Humulin R Med) 0 units SC ACHS [facility]; Protocol Last Admin: 08/15/18 09:04 Dose: Not Given Lorazepam (Ativan) 0.25 mg PO Q6 PRN; 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 Reason: Anxiety Last Admin: 08/09/18 21:48 Dose: 0.25 mg Mesalamine (Pentasa) 500 mg PO QID [facility] Last Admin: 08/15/18 09:30 Dose: 500 mg Midodrine (Proamatine) 5 mg PO TID [facility] Last Admin: 08/15/18 09:30 Dose: 5 mg Ondansetron HCl (Zofran Inj) 4 mg IVP Q4H PRN PRN Reason: Nausea/Vomiting Last Admin: 08/06/18 06:39 Dose: 4 mg Pantoprazole Sodium (Protonix Ec Tab) 40 mg PO 0600 [facility] Last Admin: 08/15/18 05:22 Dose: 40 mg Prednisone (Prednisone Tab) 20 mg PO BID [facility] Last Admin: 08/15/18 09:30 Dose: 20 mg Quetiapine Fumarate (Seroquel) 12.5 mg PO HS PRN; 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 Reason: Agitation Last Admin: 08/14/18 22:07 Dose: 12.5 mg - Labs Labs: 08/15/18 05:30 08/15/18 05:30 PT 17.3 SECONDS (9.4-12.5) H 08/13/18 16:51 INR 1.50 08/13/18 16:51 APTT 36.3 Seconds (25.1-36.5) 08/13/18 16:51 - Constitutional Appears: Non-toxic, No Acute Distress - Head Exam Head Exam: ATRAUMATIC, NORMAL INSPECTION, NORMOCEPHALIC - ENT Exam ENT Exam: Mucous Membranes Moist - Respiratory Exam Respiratory Exam: Clear to Ausculation Bilateral, NORMAL BREATHING PATTERN. absent: Rales, Rhonchi, Wheezes - Cardiovascular Exam Cardiovascular Exam: RRR, +S1, +S2 - GI/Abdominal Exam GI & Abdominal Exam: Soft, Normal Bowel Sounds. absent: Tenderness - Extremities Exam Additional comments: 2+ edema to the hips b/l, diffuse anasarca - Neurological Exam Neurological Exam: Alert, Awake. absent: Oriented x3 - Psychiatric Exam Psychiatric exam: Flat Affect - Skin Skin Exam: Dry, Intact, Warm Assessment and Plan - Assessment and Plan (Free Text) Plan: 77 y/o F with PMH of HTN, DM, osteoarthritis, COPD and Crohn's Disease presented with AMS complicated by NSTEMI, GI bleed, and ischemic stroke. Patient currently stable LISETTE at this time. 1. LISETTE Likely secondary to ATN in the setting of hypotension Maintain adequate blood pressure Another dose of albumin in the evening Increase Midodrine to 10 mg Obtain 24 hour urine protein Decrease LR rate 2. GI bleed As per GI, holding anticoagulation due to elevated bleeding risk 3. NSTEMI Management as per Cardiology 4. Ischemic stroke Management as per neurology Brain MRI ordered as per primary team Hayder, PGY-3
--- NOTE | 2018-08-15 11:29 | CP.PCM.PN ---
<Pankaj Sanchez - Last Filed: 08/15/18 13:13> Subjective - Date & Time of Evaluation Date of Evaluation: 08/15/18 Time of Evaluation: 11:25 - Subjective Subjective: Patient reportedly had a bloody BM lastnight. Hb decreased from 13.3 to 11.2. Otherwise no other acute events. Tolerating diet. Objective - Vital Signs/Intake and Output Vital Signs (last 24 hours): Temp Pulse Resp BP Pulse Ox 97.8 F 86 16 104/40 L 93 L 08/14/18 16:00 08/15/18 09:30 08/15/18 07:00 08/15/18 09:30 08/15/18 07:00 Intake and Output: 08/15/18 08/15/18 06:59 18:59 Intake Total 1100 Output Total 100 Balance 1000 - Medications Medications: Current Medications Acetaminophen (Tylenol 325mg Tab) 650 mg PO Q6H PRN PRN Reason: Pain, moderate (4-7) Last Admin: 08/12/18 20:46 Dose: 650 mg Albuterol/Ipratropium (Duoneb 3 Mg/0.5 Mg (3 Ml) Ud) 3 ml IH [id number] [facility] Last Admin: 08/15/18 07:47 Dose: 3 ml Atorvastatin Calcium (Lipitor) 40 mg PO DIN [facility] Last Admin: 08/14/18 17:09 Dose: 40 mg Cholecalciferol (Vitamin D) 2,000 intlu PO DAILY [facility] Last Admin: 08/15/18 09:30 Dose: 2,000 intlu Diltiazem HCl (Cardizem) 60 mg PO TID [facility] Last Admin: 08/15/18 09:30 Dose: 60 mg Guaifenesin (Robitussin) 100 mg PO Q4H PRN PRN Reason: Cough Last Admin: 08/09/18 15:41 Dose: 100 mg Heparin Sodium (Porcine) (Heparin) 5,000 units SC Q8 [facility]; Protocol Last Admin: 08/15/18 05:22 Dose: 5,000 units Lactated Ringer's (Lactated Ringer's) 1,000 mls @ 100 mls/hr IV .Q10H [facility] Last Admin: 08/15/18 02:11 Dose: 100 mls/hr Ceftriaxone Sodium (Rocephin 1 Gram Ivpb) 1 gm in 100 mls @ 100 mls/hr IVPB DAILY [facility]; Protocol Last Admin: 08/15/18 09:29 Dose: 100 mls/hr Insulin Human Regular (Humulin R Med) 0 units SC ACHS [facility]; Protocol Last Admin: 08/15/18 09:04 Dose: Not Given Lorazepam (Ativan) 0.25 mg PO Q6 PRN; 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 Reason: Anxiety Last Admin: 08/09/18 21:48 Dose: 0.25 mg Mesalamine (Pentasa) 500 mg PO QID [facility] Last Admin: 08/15/18 09:30 Dose: 500 mg Midodrine (Proamatine) 10 mg PO Q8 [facility] Ondansetron HCl (Zofran Inj) 4 mg IVP Q4H PRN PRN Reason: Nausea/Vomiting Last Admin: 08/06/18 06:39 Dose: 4 mg Pantoprazole Sodium (Protonix Ec Tab) 40 mg PO 0600 [facility] Last Admin: 08/15/18 05:22 Dose: 40 mg Prednisone (Prednisone Tab) 20 mg PO BID [facility] Last Admin: 08/15/18 09:30 Dose: 20 mg Quetiapine Fumarate (Seroquel) 12.5 mg PO HS PRN; 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 Reason: Agitation Last Admin: 08/14/18 22:07 Dose: 12.5 mg - Labs Labs: 08/15/18 05:30 08/15/18 05:30 PT 17.3 SECONDS (9.4-12.5) H 08/13/18 16:51 INR 1.50 08/13/18 16:51 APTT 36.3 Seconds (25.1-36.5) 08/13/18 16:51 - Constitutional Appears: Non-toxic, No Acute Distress - Head Exam Head Exam: ATRAUMATIC, NORMAL INSPECTION - Eye Exam Eye Exam: EOMI, Normal appearance - ENT Exam ENT Exam: Mucous Membranes Moist, Normal Exam - Respiratory Exam Respiratory Exam: Clear to Ausculation Bilateral, NORMAL BREATHING PATTERN - Cardiovascular Exam Cardiovascular Exam: REGULAR RHYTHM, +S1, +S2 - GI/Abdominal Exam GI & Abdominal Exam: Soft, Normal Bowel Sounds. absent: Tenderness - Neurological Exam Neurological Exam: Altered, Awake - Psychiatric Exam Psychiatric exam: Normal Affect, Normal Mood - Skin Skin Exam: Dry, Normal Color Assessment and Plan - Assessment and Plan (Free Text) Assessment: 77 year old female with PMH of HTN, DM, osteoarthritis, COPD and suspected Crohn's Disease 2014 (not currently on maintenance therapy) presenting with altered mental status. Active treatment of recurrent Lower GI bleed 2/2 Eliquis requiring transfusion with flexible sigmoidoscopy to 40cm showing active bleeding from extensively ulcerated mucosa- likely 2/2 Crohn's disease flare. 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 Plan: -H/H down from 13.3 to 11.2. Patient is on prophylactic heparin 5000 TID. -Patient is on DVT prophylaxis, heparin 5000 TID. Continue to monitor patient. If blood BMs persist, consider holding. -recommend avoid NOACs with current GI bleeding. Note, Patient had embolic stroker per neurologist. -continue clear liquid diet -on Prednisone 20mg BID day 6, and Mesalamine 500mg QID -elevated ALP likely secondary to cholestasis in setting of cefepime use -avoid hepatotoxic medications -neurology managing -f/u U/S for elevated alk phos <Pamela,Kovil V - Last Filed: 08/15/18 18:13> Objective - Vital Signs/Intake and Output Vital Signs (last 24 hours): Temp Pulse Resp BP Pulse Ox 97.8 F 78 19 108/47 L 98 08/14/18 16:00 08/15/18 17:40 08/15/18 17:40 08/15/18 17:30 08/15/18 17:50 Intake and Output: 08/15/18 08/15/18 06:59 18:59 Intake Total 1100 1900 Output Total 100 300 Balance 1000 1600 - Medications Medications: Current Medications Acetaminophen (Tylenol 325mg Tab) 650 mg PO Q6H PRN PRN Reason: Pain, moderate (4-7) Last Admin: 08/12/18 20:46 Dose: 650 mg Albuterol/Ipratropium (Duoneb 3 Mg/0.5 Mg (3 Ml) Ud) 3 ml IH [id number] [facility] Last Admin: 08/15/18 13:12 Dose: Not Given Atorvastatin Calcium (Lipitor) 40 mg PO DIN [facility] Last Admin: 08/15/18 17:29 Dose: 40 mg Cholecalciferol (Vitamin D) 2,000 intlu PO DAILY [facility] Last Admin: 08/15/18 09:30 Dose: 2,000 intlu Diltiazem HCl (Cardizem) 60 mg PO TID [facility] Last Admin: 08/15/18 17:30 Dose: 60 mg Guaifenesin (Robitussin) 100 mg PO Q4H PRN PRN Reason: Cough Last Admin: 08/09/18 15:41 Dose: 100 mg Ceftriaxone Sodium (Rocephin 1 Gram Ivpb) 1 gm in 100 mls @ 100 mls/hr IVPB DAILY [facility]; Protocol Last Admin: 08/15/18 09:29 Dose: 100 mls/hr Albumin Human (Albumin Human 25% (25 Gm/100 Ml)) 100 mls @ 1 mls/min IVPB ONCE ONE Stop: 08/15/18 19:39 Last Admin: 08/15/18 17:30 Dose: 1 mls/min Insulin Human Regular (Humulin R Med) 0 units SC ACHS [facility]; Protocol Last Admin: 08/15/18 17:15 Dose: Not Given Lorazepam (Ativan) 0.25 mg PO Q6 PRN; 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 Reason: Anxiety Last Admin: 08/15/18 12:50 Dose: 0.25 mg Lorazepam (Ativan) 0.5 mg IVP ONCE PRN; 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 Reason: Anxiety Mesalamine (Pentasa) 500 mg PO QID [facility] Last Admin: 08/15/18 17:29 Dose: 500 mg Midodrine (Proamatine) 10 mg PO Q8 [facility] Last Admin: 08/15/18 15:07 Dose: 10 mg Ondansetron HCl (Zofran Inj) 4 mg IVP Q4H PRN PRN Reason: Nausea/Vomiting Last Admin: 08/06/18 06:39 Dose: 4 mg Pantoprazole Sodium (Protonix Ec Tab) 40 mg PO 0600 [facility] Last Admin: 08/15/18 05:22 Dose: 40 mg Prednisone (Prednisone Tab) 20 mg PO BID [facility] Last Admin: 08/15/18 18:03 Dose: 20 mg Quetiapine Fumarate (Seroquel) 12.5 mg PO HS PRN; 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 Reason: Agitation Last Admin: 08/14/18 22:07 Dose: 12.5 mg - Labs Labs: 08/15/18 05:30 08/15/18 05:30 PT 17.3 SECONDS (9.4-12.5) H 08/13/18 16:51 INR 1.50 08/13/18 16:51 APTT 36.3 Seconds (25.1-36.5) 08/13/18 16:51 Attending/Attestation - Attestation I have personally seen and examined this patient.: Yes I have fully participated in the care of the patient.: Yes I have reviewed all pertinent clinical information, including history, physical exam and plan: Yes Notes (Text): This is an addendum to GI progress report dictated by the GI Fellow.The patient was seen and examined earlier. Medical records, lab studies, imagings were reviewed. Last 24 hours events reviewed. Agreed with the above treatment plan as outlined in GI Fellow 's notes with the addition of the following patient did have bright red blood per rectum probably from chronic ulceration Patient is on anticoagulation heparin 5000 every 8 hours Slight drop in hemoglobin noticed New onset A. fib Ischemic stroke Reason change of mental status, repeat MRI shows ne infarct Crohn's disease on prednisone 20 mg twice a day along with the mesalamine status post recent NSTMI LISETTE Repeat sonogram reviewd, showed no gallstones CBD normal Shows downward trend Increased LFTs proably secondary to drinduced less likely PSC, would request baseline hepatitis profile close follow-up of heroglobin and hematocrit If active recurrent bleeding would hold heparin In view of recent infarct and A. fib at present it is reasonable to continheparin with close monitoring of hemoglobin 08/15/18 18:07
--- NOTE | 2018-08-15 12:30 | PN ---
DATE: 08/15/2018 SUBJECTIVE: Ms. Renuka Arango was seen earlier this morning in the ICU, bed #4. She is awake, she had an uneventful night. No fevers. No chills. PHYSICAL EXAMINATION: VITAL SIGNS: On exam, temperature is 97, blood pressure is 110/40 and respiratory rate of 18. HEENT: Unremarkable. NECK: Supple. LUNGS: Have decreased breath sounds. HEART: Normal S1 and S2. ABDOMEN: Soft and nontender. LABORATORY EXAMINATION: Reveals a white count of 9.3, hemoglobin of 11 and platelets of 119,000. Chemistries reveals a BUN of 38 and creatinine of 1.6. Chemistries are noted. Urinalysis is noted. Microbiology is reviewed. ASSESSMENT AND PLAN: This is a 77-year-old female with pancolitis, Crohn's disease, cerebrovascular accident, hypertension, diabetes, chronic obstructive lung disease, on day #12 of antibiotics, also on prednisone. The patient has had antibiotics, currently off of antibiotics. The patient with gastrointestinal bleed. The patient is on prednisone. Ceftriaxone was started by Dr. Manning. We will follow closely with you. Ranjit Vaca MD
--- NOTE | 2018-08-15 14:01 | MRI ---
Date of service: 08/15/2018 PROCEDURE: MRI BRAIN WITHOUT CONTRAST HISTORY: r/o recurrent CVA COMPARISON: MRI 07/30/2018 TECHNIQUE: Multiplanar, multisequence MR images of the brain were obtained without intravenous contrast enhancement. FINDINGS: HEMORRHAGE: None DWI: There is a new small 5 mm cortical infarct in the right posterior frontal lobe. The previous study showed multiple small cortical infarcts in the right hemisphere. These are no longer seen on diffusion imaging. BRAIN PARENCHYMA: No mass effect or edema. Mild microvascular changes in the periventricular white matter. VENTRICLES: Unremarkable. No hydrocephalus. CRANIUM: Unremarkable. ORBITS: Grossly unremarkable. PARANASAL SINUSES/MASTOIDS: Clear VASCULAR SYSTEM: Skull base flow voids intact. OTHER FINDINGS: None. IMPRESSION: There is a new small 5 mm cortical infarct in the right posterior frontal lobe.
--- NOTE | 2018-08-15 14:04 | RAD ---
Date of service: 08/15/2018 HISTORY: pulmonary fluid status COMPARISON: 08/09/2018 FINDINGS: LUNGS: No active pulmonary disease. PLEURA: Small bilateral pleural effusions CARDIOVASCULAR: Minimal aortic calcification Normal cardiac size. Moderate vascular congestion OSSEOUS STRUCTURES: No significant abnormalities. VISUALIZED UPPER ABDOMEN: Normal. OTHER FINDINGS: None. IMPRESSION: Moderate vascular congestion and small bilateral pleural effusions
--- NOTE | 2018-08-15 17:57 | US ---
Date of service: 08/15/2018 HISTORY: abnormal LFT COMPARISON: Comparison is made to the previous CT study dated 08/03/2018 TECHNIQUE: Sonographic evaluation of the abdomen. FINDINGS: LIVER: Measures 15.7 cm. Increased echogenicity of the liver parenchyma. Again noted is a focus of calcification at the peripheral right liver lobe measures 1.1 x 0.7 x 1 centimeter. No evidence of intrahepatic biliary ductal dilatation. GALLBLADDER: Unremarkable. No gallstones. COMMON BILE DUCT: Measures 9.8 mm. No stones. No dilatation. PANCREAS: Unremarkable as visualized. No mass. No ductal dilatation. RIGHT KIDNEY: Measures 11 x 4.6 x 5.5cm. Normal echogenicity. No calculus, mass, or hydronephrosis. LEFT KIDNEY: Measures 10.2 x 4.4 x 5.3cm. Normal echogenicity. No calculus, mass, or hydronephrosis. SPLEEN: Normal in size and contour. No mass. AORTA: No aneurysmal dilatation. IVC: Unremarkable. OTHER FINDINGS: Small amount of ascites noted in the abdomen. IMPRESSION: No evidence of acute pathology. Small amount of free fluid in the abdomen. 1.1 centimeter focal calcification in the peripheral right liver lobe.
[2018-08-15] MEDS ORDERED: Iodixanol 320 MG/ML 200 ML BOTTLE IV ONE (20:08)
[2018-08-15] MEDS ORDERED: Iodixanol 320 MG/ML 100 ML BOTTLE IV ONE (20:08)
[2018-08-15] MEDS ORDERED: Lidocaine 2% Inj (20ml) ONE (20:08)
[2018-08-16] MEDS: Albuterol-Ipratrop 3 mg / 0.5 (3 ml) UD IH SCH ×3 (01:47→14:06)
[2018-08-16 04:49] VITALS: O2SAT 97
[2018-08-16] MEDS: Pantoprazole 40 mg EC Tab PO SCH (06:38)
--- NOTE | 2018-08-16 06:48 | CP.PCM.PN ---
Subjective - Date & Time of Evaluation Date of Evaluation: 08/16/18 Time of Evaluation: 06:47 Objective - Vital Signs/Intake and Output Vital Signs (last 24 hours): Temp Pulse Resp BP Pulse Ox 98 F 42 L 15 113/62 97 08/16/18 00:00 08/16/18 04:40 08/16/18 04:40 08/16/18 04:00 08/16/18 04:40 Intake and Output: 08/15/18 08/16/18 18:59 06:59 Intake Total 1900 Output Total 300 Balance 1600 - Medications Medications: Current Medications Acetaminophen (Tylenol 325mg Tab) 650 mg PO Q6H PRN PRN Reason: Pain, moderate (4-7) Last Admin: 08/12/18 20:46 Dose: 650 mg Albuterol/Ipratropium (Duoneb 3 Mg/0.5 Mg (3 Ml) Ud) 3 ml IH [id number] [facility] Last Admin: 08/16/18 01:47 Dose: 3 ml Diltiazem HCl (Cardizem) 60 mg PO TID [facility] Last Admin: 08/15/18 17:30 Dose: 60 mg Guaifenesin (Robitussin) 100 mg PO Q4H PRN PRN Reason: Cough Last Admin: 08/09/18 15:41 Dose: 100 mg Insulin Human Regular (Humulin R Med) 0 units SC [facility]; Protocol Last Admin: 08/15/18 21:00 Dose: Not Given Lorazepam (Ativan) 0.25 mg PO Q6 PRN; 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 Reason: Anxiety Last Admin: 08/15/18 12:50 Dose: 0.25 mg Lorazepam (Ativan) 0.5 mg IVP ONCE PRN; 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 Reason: Anxiety Mesalamine (Pentasa) 500 mg PO QID [facility] Last Admin: 08/15/18 23:32 Dose: 500 mg Midodrine (Proamatine) 10 mg PO Q8 [facility] Last Admin: 08/16/18 06:39 Dose: 10 mg Ondansetron HCl (Zofran Inj) 4 mg IVP Q4H PRN PRN Reason: Nausea/Vomiting Last Admin: 08/06/18 06:39 Dose: 4 mg Pantoprazole Sodium (Protonix Ec Tab) 40 mg PO 0600 [facility] Last Admin: 08/16/18 06:38 Dose: 40 mg Quetiapine Fumarate (Seroquel) 12.5 mg PO HS PRN; 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 Reason: Agitation Last Admin: 08/14/18 22:07 Dose: 12.5 mg - Labs Labs: 08/15/18 05:30 08/15/18 05:30 PT 17.3 SECONDS (9.4-12.5) H 08/13/18 16:51 INR 1.50 08/13/18 16:51 APTT 36.3 Seconds (25.1-36.5) 08/13/18 16:51
--- NOTE | 2018-08-16 08:18 | PN ---
DATE: 08/16/2018 SUBJECTIVE: The patient is in bed, in no acute distress, nontoxic. PHYSICAL EXAMINATION: VITAL SIGNS: On exam, temperature is 98, blood pressure is 113/60, respiratory rate of 18. HEENT: Examination of HEENT is unremarkable. NECK: Supple. LUNGS: Have decreased breath sounds. HEART: Normal S1, S2. ABDOMEN: Soft, nontender. LABORATORY DATA: Laboratory examination reveals a white count of 9.3, hemoglobin 11, platelets of 119. Chemistries are noted. BUN of 38, creatinine of 1.6 and urinalysis is noted. Serology is noted. Microbiology is reviewed. ASSESSMENT AND PLAN: A 77-year-old female with pancolitis, Crohn disease, cerebrovascular accident, hypertension, diabetes, chronic obstructive lung disease, day #13 of antibiotics. The patient has had 12 days of antibiotics. Currently on prednisone and patient is currently off of antibiotics. Had an MRI of the brain. There is a small 5-mm cortical infarct in the right posterior frontal lobe and the patient had an ultrasound of lower extremity which I am told by the nursing staff is positive for deep venous thrombosis, possible umbrella placement. Review of orders confirms the patient to be off of antibiotics, afebrile. Ranjit Vaca MD
[2018-08-16 08:57] VITALS: PULSE 86; RESP 14
[2018-08-16 09:32] VITALS: TEMP 97.2
--- NOTE | 2018-08-16 09:37 | CP.PCM.PN ---
Subjective - Date & Time of Evaluation Date of Evaluation: 08/16/18 Time of Evaluation: 09:33 - Subjective Subjective: Patient is resting comfortably in bed. Nursing reports 2 bloody BMs since last night. Patients has been made comfort care. Labs have been discontinued and several medications have been discontinued (heparin, prednisone). Objective - Vital Signs/Intake and Output Vital Signs (last 24 hours): Temp Pulse Resp BP Pulse Ox 97.2 F L 86 14 137/57 L 97 08/16/18 07:00 08/16/18 08:50 08/16/18 08:50 08/16/18 08:00 08/16/18 08:50 Intake and Output: 08/16/18 08/16/18 06:59 18:59 Intake Total 300 Output Total 250 Balance 50 - Medications Medications: Current Medications Acetaminophen (Tylenol 325mg Tab) 650 mg PO Q6H PRN PRN Reason: Pain, moderate (4-7) Last Admin: 08/12/18 20:46 Dose: 650 mg Albuterol/Ipratropium (Duoneb 3 Mg/0.5 Mg (3 Ml) Ud) 3 ml IH [id number] [facility] Last Admin: 08/16/18 08:21 Dose: 3 ml Diltiazem HCl (Cardizem) 60 mg PO TID [facility] Last Admin: 08/15/18 17:30 Dose: 60 mg Guaifenesin (Robitussin) 100 mg PO Q4H PRN PRN Reason: Cough Last Admin: 08/09/18 15:41 Dose: 100 mg Insulin Human Regular (Humulin R Med) [address] [facility]; Protocol Last Admin: 08/15/18 21:00 Dose: Not Given Lorazepam (Ativan) 0.25 mg PO Q6 PRN; 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 Reason: Anxiety Last Admin: 08/15/18 12:50 Dose: 0.25 mg Lorazepam (Ativan) 0.5 mg IVP ONCE PRN; 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 Reason: Anxiety Mesalamine (Pentasa) 500 mg PO QID [facility] Last Admin: 08/15/18 23:32 Dose: 500 mg Midodrine (Proamatine) 10 mg PO Q8 [facility] Last Admin: 08/16/18 06:39 Dose: 10 mg Ondansetron HCl (Zofran Inj) 4 mg IVP Q4H PRN PRN Reason: Nausea/Vomiting Last Admin: 08/06/18 06:39 Dose: 4 mg Pantoprazole Sodium (Protonix Ec Tab) 40 mg PO 0600 [place] Last Admin: 08/16/18 06:38 Dose: 40 mg Quetiapine Fumarate (Seroquel) 12.5 mg PO HS PRN; 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 Reason: Agitation Last Admin: 08/14/18 22:07 Dose: 12.5 mg - Labs Labs: 08/15/18 05:30 08/15/18 05:30 PT 17.3 SECONDS (9.4-12.5) H 08/13/18 16:51 INR 1.50 08/13/18 16:51 APTT 36.3 Seconds (25.1-36.5) 08/13/18 16:51 - Constitutional Appears: Non-toxic, No Acute Distress - Eye Exam Eye Exam: EOMI, Normal appearance - ENT Exam ENT Exam: Mucous Membranes Moist, Normal Exam - Respiratory Exam Respiratory Exam: Clear to Ausculation Bilateral, NORMAL BREATHING PATTERN - Cardiovascular Exam Cardiovascular Exam: REGULAR RHYTHM, +S1, +S2 - GI/Abdominal Exam GI & Abdominal Exam: Soft, Normal Bowel Sounds. absent: Tenderness - Neurological Exam Neurological Exam: Altered - Psychiatric Exam Psychiatric exam: Flat Affect - Skin Skin Exam: Dry, Normal Color Assessment and Plan - Assessment and Plan (Free Text) Assessment: 77 year old female with PMH of HTN, DM, osteoarthritis, COPD and suspected Crohn's Disease 2014 (not currently on maintenance therapy) presenting with altered mental status. Active treatment of recurrent Lower GI bleed 2/2 Eliquis requiring transfusion with flexible sigmoidoscopy to 40cm showing active bleeding from extensively ulcerated mucosa- likely 2/2 Crohn's disease flare. 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 Plan: -H/H was trending down with recurrent GI bleeding. -Patient has been made comfort care per nursing and primary team. Heparin and prednisone discontinued. Mesalamine continued. -recommend avoid NOACs with current GI bleeding. Note, Patient had embolic stroker per neurologist. -continue clear liquid diet -Mesalamine 500mg QID -elevated ALP likely secondary to cholestasis in setting of cefepime use. U/S unremarkable. -avoid hepatotoxic medications -neurology managing embolic stroke from likely afib.
[2018-08-16] MEDS: Mesalamine ER Cap 500 MG PO SCH (10:10)
[2018-08-16 10:17] VITALS: BP 127/60
[2018-08-16] MEDS ORDERED: Morphine 2 mg/ml ISec IVP PRN (13:19)
--- NOTE | 2018-08-16 14:24 | CP.PCM.DIS ---
<Emily White L - Last Filed: 08/16/18 16:16> Provider - Provider Date of Admission: 07/28/18 19:48 Attending physician: Milagros Quevedo MD Consults: Dr. Krysta Mckeon Time Spent in preparation of Discharge (in minutes): 45 Diagnosis - Discharge Diagnosis (1) Elevated troponin Status: Acute (2) Ischemic stroke Status: Acute (3) NSTEMI (non-ST elevated myocardial infarction) Status: Acute Hospital Course - Lab Results Lab Results: Micro Results 08/14/18 13:20 Urine,Catheterized Urine Culture - Final No Growth (<1,000 CFU/ML) 08/05/18 16:45 Blood Blood Culture - Final NO GROWTH AFTER 5 DAYS 08/05/18 16:45 Blood Gram Stain - Final TEST NOT PERFORMED 08/07/18 15:35 Naris MRSA Culture (Admit) - Final MRSA NOT DETECTED 08/05/18 17:30 Urine,Catheterized Urine Culture - Final No Growth (<1,000 CFU/ML) 08/03/18 13:00 Stool Stool Culture - Final NO SALMONELLA, SHIGELLA OR CAMPYLOBACTER ISOLATED. 08/03/18 13:00 Stool C. difficile Antigen & Toxins A,B - Final 07/28/18 20:45 Blood-Venous Blood Culture - Final NO GROWTH AFTER 5 DAYS 07/28/18 20:45 Blood-Venous Gram Stain - Final TEST NOT PERFORMED 07/28/18 20:30 Blood-Venous Blood Culture - Final NO GROWTH AFTER 5 DAYS 07/28/18 20:30 Blood-Venous Gram Stain - Final TEST NOT PERFORMED 08/01/18 10:01 Stool C. difficile Antigen & Toxins A,B - Final 07/28/18 19:05 Urine Urine Culture - Final 10-50,000 CFU/ML. MULTIPLE SPECIES. PROBABLE CONTAMINATION. Most Recent Lab Values WBC 9.3 10^3/uL (4.5-11.0) D 08/15/18 05:30 RBC 3.73 10^6/uL (3.5-6.1) 08/15/18 05:30 Hgb 11.2 g/dL (12.0-16.0) L D 08/15/18 05:30 Hct 33.2 % (36.0-48.0) L 08/15/18 05:30 MCV 89.0 fl (80.0-105.0) 08/15/18 05:30 MCH 30.0 pg (25.0-35.0) 08/15/18 05:30 MCHC 33.7 g/dl (31.0-37.0) 08/15/18 05:30 RDW 19.2 % (11.5-14.5) H 08/15/18 05:30 Plt Count 119 10^3/uL (120.0-450.0) L 08/15/18 05:30 MPV 9.8 fl (7.0-11.0) 08/15/18 05:30 Gran % 90.8 % (50.0-68.0) H 08/15/18 05:30 Lymph % (Auto) 6.2 % (22.0-35.0) L 08/15/18 05:30 [place] % (Auto) 3.0 % (1.0-6.0) 08/15/18 05:30 Eos % (Auto) 0.0 % (1.5-5.0) L 08/15/18 05:30 Baso % (Auto) 0.0 % (0.0-3.0) 08/15/18 05:30 Gran # 8.40 (1.4-6.5) H 08/15/18 05:30 Lymph # (Auto) 0.6 (1.2-3.4) L 08/15/18 05:30 [place] # (Auto) 0.3 (0.1-0.6) 08/15/18 05:30 Eos # (Auto) 0.0 (0.0-0.7) 08/15/18 05:30 Baso # (Auto) 0.00 K/mm3 (0.0-2.0) 08/15/18 05:30 Neutrophils % (Manual) 90 % (50.0-70.0) H 08/12/18 05:45 Band Neutrophils % 4 % (0-2) H 08/12/18 05:45 Lymphocytes % (Manual) 5 % (22.0-35.0) L 08/12/18 05:45 Monocytes % (Manual) 1 % (1.0-6.0) 08/12/18 05:45 Toxic Granulation Slight 08/12/18 05:45 Platelet Evaluation Normal (NORMAL) 08/12/18 05:45 Poikilocytosis (manual Slight 08/06/18 23:55 Anisocytosis (manual) Slight 08/12/18 05:45 Tear Drop Cells Slight 08/12/18 05:45 Acanthocytes (Spur) Slight 08/12/18 05:45 Retic Count 0.98 % (0.5-1.5) 07/29/18 06:00 PT 17.3 SECONDS (9.4-12.5) H 08/13/18 16:51 INR 1.50 08/13/18 16:51 APTT 36.3 Seconds (25.1-36.5) 08/13/18 16:51 pO2 60 mm/Hg (30-55) H 08/13/18 06:15 VBG pH 7.35 (7.32-7.43) 08/13/18 06:15 VBG pCO2 32.0 (40-60) L 08/13/18 06:15 VBG HCO3 17.7 mmol/l (21-28) L 08/13/18 06:15 VBG Total CO2 18.7 mmol.L (22-28) L 08/13/18 06:15 VBG O2 Sat (Calc) 94.5 % (40-65) H 08/13/18 06:15 VBG Base Excess -6.8 mmol/L (0.0-2.0) L 08/13/18 06:15 VBG Potassium 4.7 mmol/L (3.6-5.2) 08/13/18 06:15 Sodium 132.0 mmol/L (132-148) 08/13/18 06:15 Chloride 107.0 mmol/L (98-107) 08/13/18 06:15 Glucose 106 mg/dl (65-105) H 08/13/18 06:15 Lactate 1.6 mmol/L (0.7-2.1) 08/13/18 06:15 FiO2 21.0 % 08/13/18 06:15 Sodium 136 mmol/L (132-148) 08/15/18 05:30 Potassium 4.6 mmol/L (3.6-5.0) 08/15/18 05:30 Chloride 113 mmol/L (98-107) H 08/15/18 05:30 Carbon Dioxide 19 mmol/L (21-33) L 08/15/18 05:30 Anion Gap 9 (10-20) L 08/15/18 05:30 BUN 38 mg/dL (7-21) H 08/15/18 05:30 Creatinine 1.6 mg/dl (0.7-1.2) H 08/15/18 05:30 Est GFR ( Amer) 38 08/15/18 05:30 Est GFR (Non-Af Amer) 31 08/15/18 05:30 POC Glucose (mg/dL) 89 mg/dL (65-110) 08/16/18 07:44 Random Glucose 113 mg/dL (70-110) H 08/15/18 05:30 Hemoglobin A1c 5.3 % (4.2-6.5) 07/29/18 06:00 Serum Osmolality 275 mosm/kg (272-300) 08/06/18 08:00 Calcium 9.3 mg/dL (8.4-10.5) 08/15/18 05:30 Phosphorus 2.7 mg/dL (2.5-4.5) 08/15/18 05:30 Magnesium 1.9 mg/dL (1.7-2.2) 08/15/18 05:30 Iron 23 ug/dL (45-180) L 07/28/18 16:28 TIBC 160 ug/dL (265-497) L 07/28/18 16:28 % Saturation 14 % (20-55) L 07/28/18 16:28 Transferrin 99.45 mg/dL (206-381) L 07/28/18 16:28 Total Bilirubin 0.8 mg/dL (0.2-1.3) 08/15/18 05:30 GGT 264 U/L (8-78) H 08/12/18 06:30 AST 25 U/L (14-36) 08/15/18 05:30 ALT 50 U/L (7-56) 08/15/18 05:30 Alkaline Phosphatase 308 U/L (38-126) H D 08/15/18 05:30 Ammonia < 9 umol/L (9-33) L 07/28/18 20:30 Total Creatine Kinase 98 U/L (35-230) 07/28/18 16:28 Troponin I < 0.01 ng/mL D 08/12/18 10:30 Total Protein 4.4 g/dL (5.8-8.3) L 08/15/18 05:30 Albumin 2.0 g/dL (3.0-4.8) L 08/15/18 05:30 Globulin 2.4 gm/dL 08/15/18 05:30 Albumin/Globulin Ratio 0.9 (1.1-1.8) L 08/15/18 05:30 Triglycerides 66 mg/dL (35-160) 07/29/18 06:00 Cholesterol 97 mg/dL (130-200) L 07/29/18 06:00 LDL Cholesterol Direct 43 mg/dL (0-129) 07/29/18 06:00 HDL Cholesterol 50 mg/dL (29-60) 07/29/18 06:00 Lipase 230 U/L (23-300) 07/28/18 16:28 Vitamin B12 877 pg/mL (239-931) 07/28/18 16:28 Folate 7.0 ng/mL 07/28/18 16:28 Procalcitonin 2.96 NG/ML (0.19-0.49) H 08/07/18 08:50 TSH 3rd Generation 4.33 mIU/mL (0.46-4.68) 07/29/18 06:00 Venous Blood Potassium 4.7 mmol/L (3.6-5.2) 08/13/18 06:15 Urine Color Brown (YELLOW) 08/14/18 13:20 Urine Appearance Cloudy (CLEAR) 08/14/18 13:20 Urine pH 5.5 (4.7-8.0) 08/14/18 13:20 Ur Specific [place] >= 1.030 (1.005-1.035) 08/14/18 13:20 Urine Protein 100 mg/dL (<30 mg/dL) H 08/14/18 13:20 Urine Glucose (UA) Negative mg/dL (NEGATIVE) 08/14/18 13:20 Urine Ketones Trace mg/dL (NEGATIVE) H 08/14/18 13:20 Urine Blood Large (NEGATIVE) H 08/14/18 13:20 Urine Nitrate Positive (NEGATIVE) H 08/14/18 13:20 Urine Bilirubin Small (NEGATIVE) H 08/14/18 13:20 Urine Urobilinogen 0.2 E.U./dL (<1 E.U./dL) 08/14/18 13:20 Ur Leukocyte Esterase Trace Radha/uL (NEGATIVE) H 08/14/18 13:20 Urine RBC Tntc /hpf (0-2) 08/14/18 13:20 Urine WBC 20 - 25 /hpf (0-6) 08/14/18 13:20 Ur Epithelial Cells 1 - 3 /hpf (0-5) 08/14/18 13:20 Amorphous Sediment Few 08/14/18 13:20 Urine Bacteria Few (NEG) 08/14/18 13:20 Hyaline Casts 0 - 2 /hpf 07/28/18 19:05 Urine Osmolality 445 mosm/kg (300-1000) 08/06/18 12:30 Ur Random Sodium 24 meq/L 08/06/18 12:30 Ur Random Potassium 38.6 meq/L 08/06/18 12:30 Urine Opiates Screen Negative (NEGATIVE) 07/28/18 19:05 Urine Methadone Screen Negative (NEGATIVE) 07/28/18 19:05 Ur Barbiturates Screen Negative (NEGATIVE) 07/28/18 19:05 Ur Phencyclidine Scrn Negative (NEGATIVE) 07/28/18 19:05 Ur Amphetamines Screen Negative (NEGATIVE) 07/28/18 19:05 U Benzodiazepines Scrn Negative (NEGATIVE) 07/28/18 19:05 U Oth Cocaine Metabols Negative (NEGATIVE) 07/28/18 19:05 U Cannabinoids Screen Negative (NEGATIVE) 07/28/18 19:05 B-Hydroxybutyrate 5.48 mM (0.02-0.27) H 07/28/18 16:28 SILVIO Screen Negative (Negative) 08/10/18 05:45 ANCA Screen Negative (NEGATIVE) 08/10/18 05:45 c-ANCA Titer TNP 08/10/18 05:45 Proteinase 3 (PR3) <1.0 AI (<1.0) 08/10/18 05:45 p-ANCA Titer TNP 08/10/18 05:45 Atypical p-ANCA Titer TNP 08/10/18 05:45 Myeloperoxidase Ab <1.0 AI (<1.0) 08/10/18 05:45 S.cerevisiae IgG Ab 22.2 U H 08/10/18 05:00 S.cerevisiae IgA Ab 35.8 U H 08/10/18 05:00 Blood Type A POSITIVE 08/12/18 10:30 Antibody Screen Negative 08/12/18 10:30 Crossmatch See Detail 08/12/18 10:30 BBK History Checked Patient has bt 08/12/18 10:30 - Hospital Course Hospital Course: On admission: Ms. Arango is a 77 yo F with known PMH of HTN, DM2, and OA who presents to ED with family for altered mental status and hallucinati ons/delusions. Most of history was obtained from prior records as family was not at bedside at the time of my examination. Per family, Ms. Arango had no significant dementia at baseline but suddenly began having worsening delusions this AM. Her daughter in law stated that patient believed that she was being evicted and all the people around her are "in on it." They brought her in to her regular neurologist, Dr. Dougherty who she did not recognize and stated was not her physician. At time of examination, she denied KELLY, blurred vision, CP, SOB, and nausea/vomiting/abdominal pain. Hospital course: Patient was found to have multiple small cortical and subcortical infarcts in both hemispheres on MRI brain. She was also found to have possible NSTEMI. She was started on aspirin and plavix which were later discontinue secondary to rectal bleeding which resolved. She was later started on eliquis for new onset afib with rvr, after discussing risks and benefits with daughter, but this was also discontinued secondary to recurrent GI bleed. GI was following for Crohn's flare and started patient on rowasa, pentasa and prednisone. She is s/p flexible sigmoidoscopy and endoscopy with findings consistent with Crohn's disease. Repeat MRI showed new small 5 mm cortical infarct in the right posterior frontal lobe and dopplers showed LLE DVTs. Patient's prognosis was discussed with family and decision was made to admit patient under hospice. Please refer to EMR for full summary. - Date & Time of H&P Date of H&P: 07/28/18 Time of H&P: 22:03 Discharge Exam - Head Exam Head Exam: ATRAUMATIC, NORMAL INSPECTION, NORMOCEPHALIC - Additional Findings Additional findings: - Constitutional Appears: Non-toxic, No Acute Distress, Unkempt - Head Exam Head Exam: ATRAUMATIC, NORMOCEPHALIC - Eye Exam Eye Exam: EOMI, Normal appearance - ENT Exam ENT Exam: Mucous Membranes Moist, Normal Exam - Neck Exam Neck Exam: Normal Inspection - Respiratory Exam Respiratory Exam: Clear to Ausculation Bilateral, NORMAL BREATHING PATTERN - Cardiovascular Exam Cardiovascular Exam: IRREGULAR RHYTHM, +S1, +S2 - GI/Abdominal Exam GI & Abdominal Exam: Soft, Normal Bowel Sounds. absent: Tenderness - Extremities Exam Extremities Exam: Normal Capillary Refill, +2/4 Pitting Edema - Neurological Exam Neurological Exam: Alert, Awake. absent: Oriented x2 - Skin Skin Exam: Dry, Intact, Warm Discharge Plan - Follow Up Plan Condition: GUARDED Disposition: HOSPICE - MEDICAL FACILITY Additional Instructions: Patient discharged to hospice. <Milagros Quevedo - Last Filed: 08/16/18 16:45> Provider - Provider Date of Admission: 07/28/18 19:48 Attending physician: Milagros Quevedo MD Hospital Course - Lab Results Lab Results: Micro Results 08/14/18 13:20 Urine,Catheterized Urine Culture - Final No Growth (<1,000 CFU/ML) 08/05/18 16:45 Blood Blood Culture - Final NO GROWTH AFTER 5 DAYS 08/05/18 16:45 Blood Gram Stain - Final TEST NOT PERFORMED 08/07/18 15:35 Naris MRSA Culture (Admit) - Final MRSA NOT DETECTED 08/05/18 17:30 Urine,Catheterized Urine Culture - Final No Growth (<1,000 CFU/ML) 08/03/18 13:00 Stool Stool Culture - Final NO SALMONELLA, SHIGELLA OR CAMPYLOBACTER ISOLATED. 08/03/18 13:00 Stool C. difficile Antigen & Toxins A,B - Final 07/28/18 20:45 Blood-Venous Blood Culture - Final NO GROWTH AFTER 5 DAYS 07/28/18 20:45 Blood-Venous Gram Stain - Final TEST NOT PERFORMED 07/28/18 20:30 Blood-Venous Blood Culture - Final NO GROWTH AFTER 5 DAYS 07/28/18 20:30 Blood-Venous Gram Stain - Final TEST NOT PERFORMED 08/01/18 10:01 Stool C. difficile Antigen & Toxins A,B - Final 07/28/18 19:05 Urine Urine Culture - Final 10-50,000 CFU/ML. MULTIPLE SPECIES. PROBABLE CONTAMINATION. Most Recent Lab Values WBC 9.3 10^3/uL (4.5-11.0) D 08/15/18 05:30 RBC 3.73 10^6/uL (3.5-6.1) 08/15/18 05:30 Hgb 11.2 g/dL (12.0-16.0) L D 08/15/18 05:30 Hct 33.2 % (36.0-48.0) L 08/15/18 05:30 MCV 89.0 fl (80.0-105.0) 08/15/18 05:30 MCH 30.0 pg (25.0-35.0) 08/15/18 05:30 MCHC 33.7 g/dl (31.0-37.0) 08/15/18 05:30 RDW 19.2 % (11.5-14.5) H 08/15/18 05:30 Plt Count 119 10^3/uL (120.0-450.0) L 08/15/18 05:30 MPV 9.8 fl (7.0-11.0) 08/15/18 05:30 Gran % 90.8 % (50.0-68.0) H 08/15/18 05:30 Lymph % (Auto) 6.2 % (22.0-35.0) L 08/15/18 05:30 [place] % (Auto) 3.0 % (1.0-6.0) 08/15/18 05:30 Eos % (Auto) 0.0 % (1.5-5.0) L 08/15/18 05:30 Baso % (Auto) 0.0 % (0.0-3.0) 08/15/18 05:30 Gran # 8.40 (1.4-6.5) H 08/15/18 05:30 Lymph # (Auto) 0.6 (1.2-3.4) L 08/15/18 05:30 [place] # (Auto) 0.3 (0.1-0.6) 08/15/18 05:30 Eos # (Auto) 0.0 (0.0-0.7) 08/15/18 05:30 Baso # (Auto) 0.00 K/mm3 (0.0-2.0) 08/15/18 05:30 Neutrophils % (Manual) 90 % (50.0-70.0) H 08/12/18 05:45 Band Neutrophils % 4 % (0-2) H 08/12/18 05:45 Lymphocytes % (Manual) 5 % (22.0-35.0) L 08/12/18 05:45 Monocytes % (Manual) 1 % (1.0-6.0) 08/12/18 05:45 Toxic Granulation Slight 08/12/18 05:45 Platelet Evaluation Normal (NORMAL) 08/12/18 05:45 Poikilocytosis (manual Slight 08/06/18 23:55 Anisocytosis (manual) Slight 08/12/18 05:45 Tear Drop Cells Slight 08/12/18 05:45 Acanthocytes (Spur) Slight 08/12/18 05:45 Retic Count 0.98 % (0.5-1.5) 07/29/18 06:00 PT 17.3 SECONDS (9.4-12.5) H 08/13/18 16:51 INR 1.50 08/13/18 16:51 APTT 36.3 Seconds (25.1-36.5) 08/13/18 16:51 pO2 60 mm/Hg (30-55) H 08/13/18 06:15 VBG pH 7.35 (7.32-7.43) 08/13/18 06:15 VBG pCO2 32.0 (40-60) L 08/13/18 06:15 VBG HCO3 17.7 mmol/l (21-28) L 08/13/18 06:15 VBG Total CO2 18.7 mmol.L (22-28) L 08/13/18 06:15 VBG O2 Sat (Calc) 94.5 % (40-65) H 08/13/18 06:15 VBG Base Excess -6.8 mmol/L (0.0-2.0) L 08/13/18 06:15 VBG Potassium 4.7 mmol/L (3.6-5.2) 08/13/18 06:15 Sodium 132.0 mmol/L (132-148) 08/13/18 06:15 Chloride 107.0 mmol/L (98-107) 08/13/18 06:15 Glucose 106 mg/dl (65-105) H 08/13/18 06:15 Lactate 1.6 mmol/L (0.7-2.1) 08/13/18 06:15 FiO2 21.0 % 08/13/18 06:15 Sodium 136 mmol/L (132-148) 08/15/18 05:30 Potassium 4.6 mmol/L (3.6-5.0) 08/15/18 05:30 Chloride 113 mmol/L (98-107) H 08/15/18 05:30 Carbon Dioxide 19 mmol/L (21-33) L 08/15/18 05:30 Anion Gap 9 (10-20) L 08/15/18 05:30 BUN 38 mg/dL (7-21) H 08/15/18 05:30 Creatinine 1.6 mg/dl (0.7-1.2) H 08/15/18 05:30 Est GFR ( Amer) 38 08/15/18 05:30 Est GFR (Non-Af Amer) 31 08/15/18 05:30 POC Glucose (mg/dL) 89 mg/dL (65-110) 08/16/18 07:44 Random Glucose 113 mg/dL (70-110) H 08/15/18 05:30 Hemoglobin A1c 5.3 % (4.2-6.5) 07/29/18 06:00 Serum Osmolality 275 mosm/kg (272-300) 08/06/18 08:00 Calcium 9.3 mg/dL (8.4-10.5) 08/15/18 05:30 Phosphorus 2.7 mg/dL (2.5-4.5) 08/15/18 05:30 Magnesium 1.9 mg/dL (1.7-2.2) 08/15/18 05:30 Iron 23 ug/dL (45-180) L 07/28/18 16:28 TIBC 160 ug/dL (265-497) L 07/28/18 16:28 % Saturation 14 % (20-55) L 07/28/18 16:28 Transferrin 99.45 mg/dL (206-381) L 07/28/18 16:28 Total Bilirubin 0.8 mg/dL (0.2-1.3) 08/15/18 05:30 GGT 264 U/L (8-78) H 08/12/18 06:30 AST 25 U/L (14-36) 08/15/18 05:30 ALT 50 U/L (7-56) 08/15/18 05:30 Alkaline Phosphatase 308 U/L (38-126) H D 08/15/18 05:30 Ammonia < 9 umol/L (9-33) L 07/28/18 20:30 Total Creatine Kinase 98 U/L (35-230) 07/28/18 16:28 Troponin I < 0.01 ng/mL D 08/12/18 10:30 Total Protein 4.4 g/dL (5.8-8.3) L 08/15/18 05:30 Albumin 2.0 g/dL (3.0-4.8) L 08/15/18 05:30 Globulin 2.4 gm/dL 08/15/18 05:30 Albumin/Globulin Ratio 0.9 (1.1-1.8) L 08/15/18 05:30 Triglycerides 66 mg/dL (35-160) 07/29/18 06:00 Cholesterol 97 mg/dL (130-200) L 07/29/18 06:00 LDL Cholesterol Direct 43 mg/dL (0-129) 07/29/18 06:00 HDL Cholesterol 50 mg/dL (29-60) 07/29/18 06:00 Lipase 230 U/L (23-300) 07/28/18 16:28 Vitamin B12 877 pg/mL (239-931) 07/28/18 16:28 Folate 7.0 ng/mL 07/28/18 16:28 Procalcitonin 2.96 NG/ML (0.19-0.49) H 08/07/18 08:50 TSH 3rd Generation 4.33 mIU/mL (0.46-4.68) 07/29/18 06:00 Venous Blood Potassium 4.7 mmol/L (3.6-5.2) 08/13/18 06:15 Urine Color Brown (YELLOW) 08/14/18 13:20 Urine Appearance Cloudy (CLEAR) 08/14/18 13:20 Urine pH 5.5 (4.7-8.0) 08/14/18 13:20 Ur Specific [place] >= 1.030 (1.005-1.035) 08/14/18 13:20 Urine Protein 100 mg/dL (<30 mg/dL) H 08/14/18 13:20 Urine Glucose (UA) Negative mg/dL (NEGATIVE) 08/14/18 13:20 Urine Ketones Trace mg/dL (NEGATIVE) H 08/14/18 13:20 Urine Blood Large (NEGATIVE) H 08/14/18 13:20 Urine Nitrate Positive (NEGATIVE) H 08/14/18 13:20 Urine Bilirubin Small (NEGATIVE) H 08/14/18 13:20 Urine Urobilinogen 0.2 E.U./dL (<1 E.U./dL) 08/14/18 13:20 Ur Leukocyte Esterase Trace Radha/uL (NEGATIVE) H 08/14/18 13:20 Urine RBC Tntc /hpf (0-2) 08/14/18 13:20 Urine WBC 20 - 25 /hpf (0-6) 08/14/18 13:20 Ur Epithelial Cells 1 - 3 /hpf (0-5) 08/14/18 13:20 Amorphous Sediment Few 08/14/18 13:20 Urine Bacteria Few (NEG) 08/14/18 13:20 Hyaline Casts 0 - 2 /hpf 07/28/18 19:05 Urine Osmolality 445 mosm/kg (300-1000) 08/06/18 12:30 Ur Random Sodium 24 meq/L 08/06/18 12:30 Ur Random Potassium 38.6 meq/L 08/06/18 12:30 Urine Opiates Screen Negative (NEGATIVE) 07/28/18 19:05 Urine Methadone Screen Negative (NEGATIVE) 07/28/18 19:05 Ur Barbiturates Screen Negative (NEGATIVE) 07/28/18 19:05 Ur Phencyclidine Scrn Negative (NEGATIVE) 07/28/18 19:05 Ur Amphetamines Screen Negative (NEGATIVE) 07/28/18 19:05 U Benzodiazepines Scrn Negative (NEGATIVE) 07/28/18 19:05 U Oth Cocaine Metabols Negative (NEGATIVE) 07/28/18 19:05 U Cannabinoids Screen Negative (NEGATIVE) 07/28/18 19:05 B-Hydroxybutyrate 5.48 mM (0.02-0.27) H 07/28/18 16:28 SILVIO Screen Negative (Negative) 08/10/18 05:45 ANCA Screen Negative (NEGATIVE) 08/10/18 05:45 c-ANCA Titer TNP 11/18/18 05:45 Proteinase 3 (PR3) <1.0 AI (<1.0) 08/10/18 05:45 p-ANCA Titer TNP 08/10/18 05:45 Atypical p-ANCA Titer TNP 08/10/18 05:45 Myeloperoxidase Ab <1.0 AI (<1.0) 08/10/18 05:45 S.cerevisiae IgG Ab 22.2 U H 08/10/18 05:00 S.cerevisiae IgA Ab 35.8 U H 08/10/18 05:00 Blood Type A POSITIVE 08/12/18 10:30 Antibody Screen Negative 08/12/18 10:30 Crossmatch See Detail 08/12/18 10:30 BBK History Checked Patient has bt 08/12/18 10:30 Attending/Attestation - Attestation I have personally seen and examined this patient.: Yes I have fully participated in the care of the patient.: Yes I have reviewed all pertinent clinical information, including history, physical exam and plan: Yes Notes (Text): 08/16/18 16:40 77 year old female with past medical history of Crohn's disease, COPD, hypertension and diabetes who presented with delirium. She was found to have multiple small cortical and subcortical infarcts in both hemispheres on MRI brain. She was also found to have possible NSTEMI. She was started on aspirin and plavix which were later discontinue secondary to rectal bleeding which resolved. She was later started on eliquis for new onset afib with rvr, after discussing risks and benefits with daughter, but this was also discontinued secondary to recurrent GI bleed. GI is following for Crohn's flare and started patient on rowasa, pentasa and prednisone. She is s/p flexible sigmoidoscopy and endoscopy with findings consistent with Crohn's disease. Patient had repeat MRI brain yesterday which showed new small 5 mm cortical infarct in the right posterior frontal lobe. She also had LE doppler which showed DVT. Options regarding possible IVC filter vs heparin drip vs conservative management were discussed with daughter at length regarding risks and benefits given recurrent GIB vs embolic strokes. Daughter understood the risks and decided for comfort care / hospice. I spoke with Izabel Martin from palliative care services and patient will be transferred to inpatient hospice today. Milagros Quevedo MD Hospitalist.
--- NOTE | 2018-08-17 13:42 | US ---
HISTORY: Leg pain and swelling. Evaluate for DVT PHYSICIAN(S): Tello Gutierrez MD. TECHNIQUE: Duplex sonography and color-flow Doppler with graded compression were used to evaluate the deep venous systems of both lower extremities. The exam is limited by edema. FINDINGS: There is acute hypoechoic occlusive thrombus noted in the right popliteal vein and visualized right tibial veins. The right femoral vein and right common femoral vein are patent and compressible. There is no sonographic evidence for deep venous thrombosis in the visualized segments of the left lower extremity. IMPRESSION: Acute occlusive DVT in the right popliteal and visualized tibial veins
--- NOTE | 2018-08-18 07:39 | PN ---
DATE: 08/16/2018 INDUSTRIAL FURNACE FABRICATOR NOTE SUBJECTIVE: The patient is resting in bed, states that she does feel a little better. Seems to be less as far as altered mental status today. The patient has no complaints of chest pain, is on O2 nasal cannula and respiratory status seems to be stable. No nausea or vomiting. As per the nurse, there still seems to be some lower GI bleeding. The patient had no fever or chills at this time. Hemodynamically, she is stable, on no pressors. OBJECTIVE: VITAL SIGNS: Her temperature is 98, pulse is 50, respirations are 15, BP is 113/62. SKIN: Warm and dry. HEENT: Head atraumatic, normocephalic. Eyes seem to be reactive to light. Ears, nose and throat seem to be within normal limits. NECK: Supple. No JVD. No thyroid enlargement. No lymph nodes. HEART: Has regular rate and rhythm. Normal S1, S2, but slightly bradycardic. ABDOMEN: Soft. Decreased bowel sounds. GENITALIA AND RECTAL: Deferred. MUSCULOSKELETAL: No joint deformities. EXTREMITIES: Reveal 2+ extremity edema, upper and lower extremities. NEUROLOGIC: The patient is awake and alert and seemed to be moving all extremities. LABORATORY DATA: As far as her laboratories are concerned, her white count is 9.3, hemoglobin is 11.2, hematocrit 33.2 with platelets of 119,000. Sodium is 136, potassium 4.6, chloride 113, CO2 of 19, BUN of 38 with a creatinine of 1.6 and glucose of 121. IMPRESSION: This patient initially presented with altered mental status and hypoglycemia as well as myocardial infarction. She has a history of Crohn disease and chronic colitis, noted to have gastrointestinal bleed as well as deep venous thrombosis and a frontal cerebral infarct/stroke. The patient has mild pulmonary edema as well as small bilateral pleural effusions and a history of hypertension, diabetes, chronic obstructive pulmonary disease, osteoarthritis. PLAN: As far as our plan, we will continue with Ativan for anxiety. The patient is on Cardizem as well as bronchodilators of DuoNeb. She is getting insulin as well as midodrine, Protonix, Robitussin and Tylenol as well as Zofran p.r.n. We will continue to treat aggressively along with the other consultants and the primary care doctor. Sadi Flores MD
--- NOTE | 2018-08-18 09:09 | CP.PCM.PN ---
Subjective - Date & Time of Evaluation Date of Evaluation: 08/16/18 Time of Evaluation: 10:00 - Subjective Subjective: somnolent Objective - Vital Signs/Intake and Output Vital Signs (last 24 hours): Temp Pulse Resp BP Pulse Ox 97.2 F L 86 14 127/60 97 08/16/18 07:00 08/16/18 10:10 08/16/18 08:50 08/16/18 10:10 08/16/18 08:50 - Labs Labs: 08/15/18 05:30 08/15/18 05:30 PT 17.3 SECONDS (9.4-12.5) H 08/13/18 16:51 INR 1.50 08/13/18 16:51 APTT 36.3 Seconds (25.1-36.5) 08/13/18 16:51 - Constitutional Appears: Chronically Ill - Head Exam Head Exam: NORMOCEPHALIC - Eye Exam Eye Exam: Normal appearance - Respiratory Exam Respiratory Exam: Decreased Breath Sounds - Cardiovascular Exam Cardiovascular Exam: Irregular Rhythm, +S1, +S2 - Extremities Exam Extremities Exam: Normal Capillary Refill, Pedal Edema - Skin Skin Exam: Dry, Pallor Assessment and Plan - Assessment and Plan (Free Text) Assessment: 77 year old female with history of HTN,COPD,DM, dementia who was admitted with new onset A Fib with RVR, bilateral cerebral infarcts, N STEMI, GI bleed dysphagia,altered mental status. Yesterday she became more lethargic, MRI revealed a new small 5mm cortical infarct in right posterior frontal lobe. IVC vs heparin discussed with daughter. Daughter requesting that patient be considered for hospice care. I spoke with patient daughter Adina via phone. Lengthy discussion regarding goals of care as it relates to mother condition and poor prognosis. Daughter requesting that all supportive measures be discontinued and that patient be made comfortable. Hospice services explained in detail. questions answered. Daughter met with [facility] medical director of hospice and signed consent for [facility] hospice services Time spent in discussion with family regarding goals of care and edn of life services, 30 minutes Plan: Goals of care End of life counseling Hospice evaluation Discontinue all currant medical interventions Pain Management.; Morphine 2 mg IVP now, Morphine 2 mg continuos infusion. Ativan 1 mg scheduled every 12 hours, Ativan 1 mg PRN for agitation/restlessness Upper airway secretions; scopolamine transdermal patch Tylenol 650 mg RC for fever over 100 F
== END 2018-08-16 14:48 | disposition hospice, inpatient (51) | DRG 280 ==
LOC: ED 15:06 → ERH 19:48 → 2RNO 07-29 01:04 → ICU 08-07 15:20 → 2RSO 08-15 18:02 → ICU 08-15 18:58
PROVIDERS: ADMIT Internal Medicine; ATTEND Internal Medicine
PROC: 0DBN8ZX Excision of Sigmoid Colon, Via Natural or Artificial Opening Endoscopic, Diagnostic (ICD-10-PCS; 2018-08-08)
PROC: 05HY33Z Insertion of Infusion Device into Upper Vein, Percutaneous Approach (ICD-10-PCS; 2018-08-08)
PROC: B54MZZA Ultrasonography of Right Upper Extremity Veins, Guidance (ICD-10-PCS; 2018-08-08)
PROC: 0DJ08ZZ Inspection of Upper Intestinal Tract, Via Natural or Artificial Opening Endoscopic (ICD-10-PCS; principal; 2018-08-08 12:00)
PROC: 0DBP8ZX Excision of Rectum, Via Natural or Artificial Opening Endoscopic, Diagnostic (ICD-10-PCS; 2018-08-08 12:00)
DX: I21.4 Non-ST elevation (NSTEMI) myocardial infarction (principal); N17.0 Acute kidney failure with tubular necrosis; R57.8 Other shock; D61.818 Other pancytopenia; F05 Delirium due to known physiological condition; F23 Brief psychotic disorder; I47.1 Supraventricular tachycardia; J81.1 Chronic pulmonary edema; J90 Pleural effusion, not elsewhere classified; K50.911 Crohn's disease, unspecified, with rectal bleeding; R18.8 Other ascites; R47.01 Aphasia; D72.825 Bandemia; E11.649 Type 2 diabetes mellitus with hypoglycemia without coma; E78.00 Pure hypercholesterolemia, unspecified; E83.39 Other disorders of phosphorus metabolism; E83.42 Hypomagnesemia; E83.51 Hypocalcemia; E87.6 Hypokalemia; E88.09 Other disorders of plasma-protein metabolism, not elsewhere classified; F03.90 Unspecified dementia, unspecified severity, without behavioral disturbance, psychotic disturbance, mood disturbance, and anxiety; F32.89 Other specified depressive episodes; G47.33 Obstructive sleep apnea (adult) (pediatric); I10 Essential (primary) hypertension; I25.10 Atherosclerotic heart disease of native coronary artery without angina pectoris; I45.10 Unspecified right bundle-branch block; I48.0 Paroxysmal atrial fibrillation; J44.9 Chronic obstructive pulmonary disease, unspecified; K64.4 Residual hemorrhoidal skin tags; K64.8 Other hemorrhoids; R13.10 Dysphagia, unspecified; R79.1 Abnormal coagulation profile; Z51.5 Encounter for palliative care; Z66 Do not resuscitate; Z79.01 Long term (current) use of anticoagulants; Z79.82 Long term (current) use of aspirin; Z79.899 Other long term (current) drug therapy; Z86.73 Personal history of transient ischemic attack (TIA), and cerebral infarction without residual deficits; Z87.891 Personal history of nicotine dependence; Z96.652 Presence of left artificial knee joint

== ENCOUNTER 2018-08-16 14:51 | Inpatient (IN) | payer OTHER ==
--- NOTE | 2018-08-16 14:59 | CP.PCM.HP ---
<Emily White L - Last Filed: 08/16/18 15:47> History of Present Illness - History of Present Illness History of Present Illness: Resident History and Physical for Hospitalist Service Patient is a 77 yo F with known PMH of HTN, DM2, and OA who presents to ED with family for altered mental status and hallucinations/delusions. Most of history was obtained from prior records as family was not at bedside at the time of my examination. Per family, Ms. Arango had no significant dementia at baseline but suddenly began having worsening delusions this AM. Her daughter in law stated that patient believed that she was being evicted and all the people around her are "in on it." They brought her in to her regular neurologist, Dr. Dougherty who she did not recognize and stated was not her physician. At time of examination, she denied KELLY, blurred vision, CP, SOB, and nausea/vomiting/abdominal pain. She was found to have multiple small cortical and subcortical infarcts in both hemispheres on MRI brain. She was also found to have possible NSTEMI. She was started on aspirin and plavix which were later discontinue secondary to rectal bleeding which resolved. She was later started on eliquis for new onset afib with rvr, after discussing risks and benefits with daughter, but this was also discontinued secondary to recurrent GI bleed. GI is following for Crohn's flare and started patient on rowasa, pentasa and prednisone. She is s/p flexible sigmoidoscopy and endoscopy with findings consistent with Crohn's disease. Repeat MRI showed new small 5 mm cortical infarct in the right posterior frontal lobe and dopplers showed LLE DVTs. Patient's prognosis was discussed with family and decision was made to admit patient under hospice. PMH: HTN, DM2, OA, COPD, CVA, afib PSH: L TKA Allergies: NKDA Fam Hx, Soc Hx: unknown, unattainable due to patient altered mental status Home medications: metformin 500 BID, norvasc 5 daily, myrbetriq 50 daily, cozaar 100 daily, lopressor 50 daily, cholcalciferol 2000 u daily Present on Admission - Present on Admission Any Indicators Present on Admission: Yes History of DVT/PE: Yes Review of Systems - Review of Systems Systems not reviewed;Unavailable: Altered Mental Status Past Patient History - Infectious Disease Hx of Infectious Diseases: None - Tetanus Immunizations Tetanus Immunization: Unknown - Past Social History Smoking Status: Former Smoker - CARDIAC Hx Hypertension: Yes - PULMONARY Hx Chronic Obstructive Pulmonary Disease (COPD): Yes - NEUROLOGICAL Hx Neurological Disorder: Yes (paranoid, delusional) - HEENT Hx HEENT Problems: No - RENAL Hx Chronic Kidney Disease: No - ENDOCRINE/METABOLIC Hx Diabetes Mellitus Type 2: Yes - HEMATOLOGICAL/ONCOLOGICAL Hx Blood Transfusions: No Hx Blood Transfusion Reaction: No - INTEGUMENTARY Hx Dermatological Problems: No - MUSCULOSKELETAL/RHEUMATOLOGICAL Hx Arthritis: Yes - GASTROINTESTINAL Hx Gastrointestinal Disorders: No - GENITOURINARY/GYNECOLOGICAL Hx Genitourinary Disorders: No - PSYCHIATRIC Hx Psychophysiologic Disorder: Yes Hx Emotional Abuse: No Hx Paranoia: Yes (acute) Hx Physical Abuse: No - SURGICAL HISTORY Hx Surgeries: Yes - ANESTHESIA Hx Anesthesia Reactions: No Hx Malignant Hyperthermia: No Meds Allergies/Adverse Reactions: Allergies Allergy/AdvReac Type Severity Reaction Status Date / Time No Known Allergies Allergy Verified 02/12/14 12:07 Physical Exam - Additional Findings Additional findings: - Constitutional Appears: Non-toxic, No Acute Distress, Unkempt - Head Exam Head Exam: ATRAUMATIC, NORMOCEPHALIC - Eye Exam Eye Exam: EOMI, Normal appearance - ENT Exam ENT Exam: Mucous Membranes Moist, Normal Exam - Neck Exam Neck Exam: Normal Inspection - Respiratory Exam Respiratory Exam: Clear to Ausculation Bilateral, NORMAL BREATHING PATTERN - Cardiovascular Exam Cardiovascular Exam: IRREGULAR RHYTHM, +S1, +S2 - GI/Abdominal Exam GI & Abdominal Exam: Soft, Normal Bowel Sounds. absent: Tenderness - Extremities Exam Extremities Exam: Normal Capillary Refill, +2/4 Pitting Edema - Neurological Exam Neurological Exam: Alert, Awake. absent: Oriented x2 - Skin Skin Exam: Dry, Intact, Warm Assessment & Plan - Assessment and Plan (Free Text) Assessment: Patient is a 77 yo F with known PMH of HTN, DM2, and OA who presents to ED with family for altered mental status and hallucinations/delusions, found to have NSTEMI, bilateral ischemic CVAs, LGIB, now admitted to hospice. Plan: Delirium 2/2 watershed stroke GI Bleed 2/2 Crohn's Flare LISETTE Afib with RVR NSTEMI HTN DM II - patient admitted to hospice - medications and labs discontinued - 2 mg/hr morphine drip - scopalamine drip - benadryl 25 IVP PRN - Ativan 1 mg BID IVP - ativan 0.5 mg Q8H PRN for agitation - tylenol 650 mg rectal PRN - liquid diet as tolerated Case discussed with Dr. Emy White PGY-1 - Date & Time Date: 08/16/18 Time: 15:32 <Milagros Quevedo - Last Filed: 08/16/18 16:47> Attending/Attestation - Attestation I have personally seen and examined this patient.: Yes I have fully participated in the care of the patient.: Yes I have reviewed all pertinent clinical information: Yes Notes (Text): 08/16/18 16:46 77 year old female with past medical history of Crohn's disease, COPD, hypertension and diabetes who initially presented with delirium. She was found to have multiple small cortical and subcortical infarcts in both hemispheres on MRI brain. She was also found to have possible NSTEMI. She was started on aspirin and plavix which were later discontinue secondary to rectal bleeding which resolved. She was later started on eliquis for new onset afib with rvr, after discussing risks and benefits with daughter, but this was also discontinued secondary to recurrent GI bleed. GI is following for Crohn's flare and started patient on rowasa, pentasa and prednisone. She is s/p flexible sigmoidoscopy and endoscopy with findings consistent with Crohn's disease. Patient had repeat MRI brain yesterday which showed new small 5 mm cortical infarct in the right posterior frontal lobe. She also had LE doppler which showed DVT. Options regarding possible IVC filter vs heparin drip vs conservative management were discussed with daughter at length regarding risks and benefits given recurrent GIB vs embolic strokes. Daughter understood the risks and decided for comfort care / hospice. Patient is now admitted under inpatient hospice care. Orders with discussed with palliative care services. Continue with comfort care measures as above. Milagros Quevedo MD Hospitalist.
[2018-08-16] MEDS ORDERED: DiphenhydrAMINE 50 mg/ml Inj IVP PRN (15:16)
[2018-08-16] MEDS ORDERED: Morphine PCA 1 mg/ml (30ml) 30 ML IV PRN (15:24)
[2018-08-16] MEDS ORDERED: MORPHINE PCA 1 MG/ML IV PRN (15:53)
[2018-08-16 18:25] VITALS: BMI 32.2
--- NOTE | 2018-08-17 07:29 | CP.PCM.PN ---
<Ze Haddad - Last Filed: 08/17/18 11:20> Subjective - Date & Time of Evaluation Date of Evaluation: 08/17/18 Time of Evaluation: 11:20 - Subjective Subjective: Progress note for hospitalist Dr. Emy Haddad PGY2 Patient seen and examined at bedside with daughter. Patient wincing in pain at times. ROS not obtained due to patient's current condition. 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 Lorazepam (Ativan) 0.5 mg IVP Q8H PRN; 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 Reason: Anxiety Lorazepam (Ativan) 1 mg IVP BID [facility]; Protocol Scopolamine (Transderm-Scop) 1 patch TD Q3D [facility] - Head Exam Head Exam: ATRAUMATIC, NORMAL INSPECTION, NORMOCEPHALIC - ENT Exam ENT Exam: Mucous Membranes Moist - Respiratory Exam Respiratory Exam: Clear to Ausculation Bilateral, NORMAL BREATHING PATTERN - Cardiovascular Exam Cardiovascular Exam: Irregular Rhythm, +S1, +S2 - GI/Abdominal Exam GI & Abdominal Exam: Soft, Tenderness - Extremities Exam Extremities Exam: Normal Inspection - Neurological Exam Additional comments: not alert and awake - Skin Skin Exam: Normal Color, Warm Assessment and Plan - Assessment and Plan (Free Text) Assessment: Patient is a 77 yo F with known PMH of HTN, DM2, and OA who presents to ED with family for altered mental status and hallucinations/delusions, found to have NSTEMI, bilateral ischemic CVAs, LGIB, now admitted to hospice. Plan: Delirium 2/2 watershed stroke GI Bleed 2/2 Crohn's Flare LISETTE Afib with RVR NSTEMI HTN DM II - Now a hospice patient as of yesterday - medications and labs discontinued - Continue 4 mg/hr morphine drip will add bolus PRN if pain still not controlled with changed morphine dose - Continue scopalamine drip - Continue benadryl 25 IVP PRN - Continue ativan 1 mg BID IVP - Continue ativan 0.5 mg Q8H PRN for agitation - Continue with tylenol 650 mg rectal PRN - liquid diet as tolerated Case discussed with Dr. 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 Lorazepam (Ativan) 0.5 mg IVP Q8H PRN; 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 Reason: Anxiety Lorazepam (Ativan) 1 mg IVP BID [facility]; Protocol Last Admin: 08/17/18 09:46 Dose: 1 mg Scopolamine (Transderm-Scop) 1 patch TD Q3D [facility] Attending/Attestation - Attestation I have personally seen and examined this patient.: Yes I have fully participated in the care of the patient.: Yes I have reviewed all pertinent clinical information, including history, physical exam and plan: Yes Notes (Text): 08/17/18 11:29 77 year old female with past medical history of Crohn's disease, COPD, hypertension and diabetes who initially presented with delirium. She was found to have multiple small cortical and subcortical infarcts in both hemispheres on MRI brain. She was also found to have possible NSTEMI. She was started on aspirin and plavix which were later discontinue secondary to rectal bleeding w hich resolved. She was later started on eliquis for new onset afib with rvr, after discussing risks and benefits with daughter, but this was also discontinued secondary to recurrent GI bleed. GI was following for Crohn's flare. Patient had repeat MRI brain yesterday which showed new small 5 mm cortical infarct in the right posterior frontal lobe. She also had LE doppler which showed DVT. Options regarding possible IVC filter vs heparin drip vs conservative management were discussed with daughter at length regarding risks and benefits given recurrent GIB vs embolic strokes. Daughter understood the risks and decided for comfort care / hospice. Patient is now admitted under inpatient hospice care. Continue with comfort care measures as above. Milagros Quevedo MD Hospitalist.
[2018-08-17] MEDS ORDERED: Morphine PCA 1 mg/ml (30ml) 30 ML IV SCH (10:00)
[2018-08-17] MEDS ORDERED: Morphine PCA 1 mg/ml (30ml) 30 ML IV PRN (11:19)
[2018-08-17] MEDS: Morphine PCA 1 mg/ml (30ml) 30 ML IV PRN ×2 (11:40→21:54)
[2018-08-18] MEDS: Morphine PCA 1 mg/ml (30ml) 30 ML IV PRN ×4 (07:08→16:59)
--- NOTE | 2018-08-18 09:13 | CP.PCM.PN ---
<Emily White L - Last Filed: 08/18/18 15:26> Subjective - Date & Time of Evaluation Date of Evaluation: 08/18/18 Time of Evaluation: 07:30 - Subjective Subjective: Resident Progress Note for Hospitalist Service Patient examined at bedside. Per nursing patient having decreasing blood pressure into 99/66. Patient does not follow commands, minimally responsive to painful stimuli. Patient's condition and prognosis discussed with daughter at bedside. Daughter states that advanced directives are in place should the patient . 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 Lorazepam (Ativan) 0.5 mg IVP Q8H PRN; 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 Reason: Anxiety Lorazepam (Ativan) 1 mg IVP BID [facility]; Protocol Last Admin: 08/17/18 18:16 Dose: Not Given Scopolamine (Transderm-Scop) 1 patch TD Q3D [facility] - Constitutional Appears: No Acute Distress - Head Exam Head Exam: ATRAUMATIC, NORMOCEPHALIC - Eye Exam Eye Exam: EOMI, Normal appearance - ENT Exam ENT Exam: Mucous Membranes Moist - Respiratory Exam Respiratory Exam: Clear to Ausculation Bilateral, NORMAL BREATHING PATTERN - Cardiovascular Exam Cardiovascular Exam: +S1, +S2. absent: REGULAR RHYTHM - GI/Abdominal Exam GI & Abdominal Exam: Soft. absent: Distended, Firm, Rigid - Extremities Exam Extremities Exam: Pedal Edema Additional comments: edema in upper extremities bilaterally - Neurological Exam Neurological Exam: absent: Alert, Awake, Oriented x3 - Skin Skin Exam: Dry, Intact, Normal Color, Warm Assessment and Plan - Assessment and Plan (Free Text) Assessment: Patient is a 77 yo F with known PMH of HTN, DM2, and OA who presents to ED with family for altered mental status and hallucinations/delusions, found to have NSTEMI, bilateral ischemic CVAs, LGIB, now admitted to hospice. Plan: Delirium 2/2 watershed stroke GI Bleed 2/2 Crohn's Flare LISETTE Afib with RVR NSTEMI HTN DM II - Now a hospice patient as of 08/16 - medications and labs discontinued - Continue 4 mg/hr morphine drip will add bolus PRN if pain still not controlled with changed morphine dose - Continue scopalamine drip - Continue benadryl 25 IVP PRN - Continue ativan 1 mg BID IVP - Continue ativan 0.5 mg Q8H PRN for agitation - Continue with tylenol 650 mg rectal PRN - liquid diet as tolerated Case discussed with Dr. Elvi White PGY-1 <Baron Boles - Last Filed: 08/20/18 15:23> Objective - Vital Signs/Intake and Output Vital Signs (last 24 hours): Temp Pulse Resp BP Pulse Ox 98.2 F 78 16 99/66 L 08/16/18 17:56 08/16/18 17:56 08/16/18 17:56 08/16/18 17:56 Intake and Output: 08/20/18 08/20/18 06:59 18:59 Intake Total 60 Balance 60 - Medications Medications: Current Medications Acetaminophen (Tylenol 650 Mg Supp) 650 mg RC Q6H PRN PRN Reason: Fever >100.4 F Diphenhydramine HCl (Benadryl) 25 mg IVP Q4H PRN PRN Reason: Allergy symptoms Diphenhydramine HCl (Benadryl) 25 mg IVP Q12H [facility] Last Admin: 08/20/18 09:11 Dose: 25 mg Morphine Sulfate (Morphine Supervisor Pipelines 1 Mg/Ml) 30 mls @ 5 mls/hr IV PRN PRN; 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 Reason: BOOTMAKER HAND PER MD ORDER Last Admin: 08/20/18 06:08 Dose: 5 mg/hr, 5 mls/hr Lorazepam (Ativan) 1 mg IVP BID [facility]; Protocol Last Admin: 08/20/18 09:10 Dose: 1 mg Lorazepam (Ativan) 1 mg IVP Q8H PRN; 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 Reason: Anxiety Scopolamine (Transderm-Scop) 1 patch TD Q3D [facility] Last Admin: 08/19/18 15:19 Dose: 1 patch Attending/Attestation - Attestation I have personally seen and examined this patient.: Yes I have fully participated in the care of the patient.: Yes I have reviewed all pertinent clinical information, including history, physical exam and plan: Yes
--- NOTE | 2018-08-18 09:29 | CP.PCM.PN ---
Subjective - Date & Time of Evaluation Date of Evaluation: 08/18/18 Time of Evaluation: 10:00 - Subjective Subjective: Reactive to pain, tachycardia Objective - Vital Signs/Intake and Output Vital Signs (last 24 hours): Temp Pulse Resp BP Pulse Ox 98.2 F 78 16 99/66 L 08/16/18 17:56 08/16/18 17:56 08/16/18 17:56 08/16/18 17:56 Intake and Output: 08/18/18 08/18/18 06:59 18:59 Intake Total 3 3 Balance 3 3 - Medications Medications: Current Medications Acetaminophen (Tylenol 650 Mg Supp) 650 mg RC Q6H PRN PRN Reason: Fever >100.4 F Diphenhydramine HCl (Benadryl) 25 mg IVP Q4H PRN PRN Reason: Allergy symptoms Morphine Sulfate (Morphine Emotional Support Teacher 1 Mg/Ml) 30 mls @ 4 mls/hr IV PRN PRN; 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 Lorazepam (Ativan) 0.5 mg IVP Q8H PRN; 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 Reason: Anxiety Lorazepam (Ativan) 1 mg IVP BID [facility]; Protocol Last Admin: 08/17/18 18:16 Dose: Not Given Scopolamine (Transderm-Scop) 1 patch TD Q3D [facility] - Constitutional Appears: Cachectic, Chronically Ill - Eye Exam Additional comments: sluggish - Respiratory Exam Respiratory Exam: Decreased Breath Sounds, NORMAL BREATHING PATTERN - Cardiovascular Exam Cardiovascular Exam: Tachycardia, Irregular Rhythm, +S1, +S2 - GI/Abdominal Exam GI & Abdominal Exam: Hypoactive Bowel Sounds - Extremities Exam Extremities Exam: Normal Capillary Refill, Pedal Edema - Neurological Exam Neurological Exam: Altered - Skin Skin Exam: Dry, Pallor Assessment and Plan - Assessment and Plan (Free Text) Assessment: 77 year old female with history of A Fib with RVR, N STEMI, bilateral hemispheric infarcts, GI bleed, HTN and DM who is now admitted under [facility] hospice services for pain and symptom management. Daughter at bedside. Signs and symptoms of impending explained. End of life counseling provided. Spiritual care offered. Time spent with family in end of life counseling, 30 minutes Plan: End of life counseling Pain Management.; Increase Morphine to 4 mg/hr continuos infusion Ativan 1 mg scheduled every 12 hours, Ativan 1 mg PRN for agitation/restlessness Upper airway secretions; scopolamine transdermal patch, gentle suctioning as needed. Tylenol 650 mg RC for fever over 100 F
[2018-08-19] MEDS: Morphine PCA 1 mg/ml (30ml) 30 ML IV PRN ×3 (01:19→17:47)
--- NOTE | 2018-08-19 06:25 | CP.PCM.PN ---
<Emily White L - Last Filed: 08/19/18 14:23> Subjective - Date & Time of Evaluation Date of Evaluation: 08/19/18 Time of Evaluation: 06:24 - Subjective Subjective: Resident Progress Note for Hospitalist Service Patient examined at bedside. No acute events overnight. Patient is not alert and does not follow commands. Patient appears very weak and chronically ill. 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 ORDER Last Admin: 08/19/18 01:19 Dose: 4 mg/hr, 4 mls/hr Lorazepam (Ativan) 0.5 mg IVP Q8H PRN; 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 Reason: Anxiety Lorazepam (Ativan) 1 mg IVP BID ANGELES; Protocol Last Admin: 08/18/18 18:53 Dose: Not Given Scopolamine (Transderm-Scop) 1 patch TD Q3D ANGELES - Additional Findings Additional findings: - Constitutional Appears: No Acute Distress - Head Exam Head Exam: ATRAUMATIC, NORMOCEPHALIC - Eye Exam Eye Exam: EOMI, Normal appearance - ENT Exam ENT Exam: Mucous Membranes Moist - Respiratory Exam Respiratory Exam: Clear to Ausculation Bilateral, NORMAL BREATHING PATTERN - Cardiovascular Exam Cardiovascular Exam: +S1, +S2. absent: REGULAR RHYTHM - GI/Abdominal Exam GI & Abdominal Exam: Soft. absent: Distended, Firm, Rigid - Extremities Exam Extremities Exam: Pedal Edema Additional comments: edema in upper extremities bilaterally - Neurological Exam Neurological Exam: absent: Alert, Awake, Oriented x3 - Skin Skin Exam: Dry, Intact, Normal Color, Warm Assessment and Plan - Assessment and Plan (Free Text) Assessment: Patient is a 77 yo F with known PMH of HTN, DM2, and OA who presents to ED with family for altered mental status and hallucinations/delusions, found to have NSTEMI, bilateral ischemic CVAs, LGIB, now admitted to hospice. Plan: Delirium 2/2 watershed stroke GI Bleed 2/2 Crohn's Flare LISETTE Afib with RVR NSTEMI HTN DM II - Now a hospice patient as of 08/16 - medications and labs discontinued - Continue 4 mg/hr morphine drip will add bolus PRN if pain still not controlled with changed morphine dose - Continue scopalamine patch - Continue benadryl 25 IVP Q4H PRN - Continue ativan 1 mg BID IVP - Continue ativan 0.5 mg Q8H PRN for agitation - Continue with tylenol 650 mg rectal PRN - liquid diet as tolerated Case discussed with Dr. Elvi White PGY-1 <Baron Boles - Last Filed: 08/20/18 15:23> Objective - Vital Signs/Intake and Output Vital Signs (last 24 hours): Temp Pulse Resp BP Pulse Ox 98.2 F 78 16 99/66 L 08/16/18 17:56 08/16/18 17:56 08/16/18 17:56 08/16/18 17:56 Intake and Output: 08/20/18 08/20/18 06:59 18:59 Intake Total 60 Balance 60 - Medications Medications: Current Medications Acetaminophen (Tylenol 650 Mg Supp) 650 mg RC Q6H PRN PRN Reason: Fever >100.4 F Diphenhydramine HCl (Benadryl) 25 mg IVP Q4H PRN PRN Reason: Allergy symptoms Diphenhydramine HCl (Benadryl) 25 mg IVP Q12H [facility] Last Admin: 08/20/18 09:11 Dose: 25 mg Morphine Sulfate (Morphine Brick Burner Head 1 Mg/Ml) 30 mls @ 5 mls/hr IV PRN PRN; 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
[2018-08-19] MEDS: DiphenhydrAMINE 50 mg/ml Inj IVP SCH (10:12)
--- NOTE | 2018-08-19 10:33 | CP.PCM.PN ---
Subjective - Date & Time of Evaluation Date of Evaluation: 08/19/18 Time of Evaluation: 10:00 - Subjective Subjective: Reactive to tactile stimuli, grimaces and retracts Objective - Vital Signs/Intake and Output Vital Signs (last 24 hours): Temp Pulse Resp BP Pulse Ox 98.2 F 78 16 99/66 L 08/16/18 17:56 08/16/18 17:56 08/16/18 17:56 08/16/18 17:56 Intake and Output: 08/19/18 08/19/18 06:59 18:59 Intake Total 30 Balance 30 - Medications Medications: Current Medications Acetaminophen (Tylenol 650 Mg Supp) 650 mg RC Q6H PRN PRN Reason: Fever >100.4 F Diphenhydramine HCl (Benadryl) 25 mg IVP Q4H PRN PRN Reason: Allergy symptoms Diphenhydramine HCl (Benadryl) 25 mg IVP Q12H [facility] Last Admin: 08/19/18 10:12 Dose: 25 mg Morphine Sulfate (Morphine Channel Process Plant Operator 1 Mg/Ml) 30 mls @ 5 mls/hr IV PRN PRN; 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 ORDER Lorazepam (Ativan) 1 mg IVP BID [facility]; Protocol Last Admin: 08/19/18 10:13 Dose: 1 mg Lorazepam (Ativan) 1 mg IVP Q8H PRN; 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 Reason: Anxiety Scopolamine (Transderm-Scop) 1 patch TD Q3D ANGELES - Constitutional Appears: Chronically Ill - Head Exam Head Exam: NORMOCEPHALIC - Eye Exam Eye Exam: Normal appearance, PERRL - ENT Exam ENT Exam: Mucous Membranes Dry - Respiratory Exam Respiratory Exam: Decreased Breath Sounds, NORMAL BREATHING PATTERN - Cardiovascular Exam Cardiovascular Exam: Irregular Rhythm, +S1, +S2 - GI/Abdominal Exam GI & Abdominal Exam: Soft, Hypoactive Bowel Sounds - Neurological Exam Neurological Exam: Altered - Skin Skin Exam: Dry, Pallor Assessment and Plan - Assessment and Plan (Free Text) Assessment: 77 year old female with history of HTN, A Fib, mulitple CVS's, GI bleed who is admitted to under [facility] for pain and symptom management. Plan: Morphine increased to 5 mg/hr continuos infusion. Ativan 1 mg IV scheduled twice daily, Ativan 1 mg prn for agitation as needed. Benadryl 25 mg IVP scheduled twice daily. Scopolamine transdermal patch. Tylenol 650 mg RC as needed for fever over 100 F.
[2018-08-20] MEDS: Morphine PCA 1 mg/ml (30ml) 30 ML IV PRN ×4 (00:03→22:14)
[2018-08-20] MEDS: DiphenhydrAMINE 50 mg/ml Inj IVP SCH (09:11)
--- NOTE | 2018-08-20 12:35 | CP.PCM.PN ---
<Emily White L - Last Filed: 08/20/18 13:29> Subjective - Date & Time of Evaluation Date of Evaluation: 08/20/18 Time of Evaluation: 07:30 - Subjective Subjective: Resident Progress Note for Hospitalist Service Patient examined at bedside. No acute events overnight. Patient's condition is unchanged from yesterday. She is not alert, does not follow commands. Objective - Vital Signs/Intake and Output Vital Signs (last 24 hours): Temp Pulse Resp BP Pulse Ox 98.2 F 78 16 99/66 L 08/16/18 17:56 08/16/18 17:56 08/16/18 17:56 08/16/18 17:56 Intake and Output: 08/20/18 08/20/18 06:59 18:59 Intake Total 60 Balance 60 - Medications Medications: Current Medications Acetaminophen (Tylenol 650 Mg Supp) 650 mg RC Q6H PRN PRN Reason: Fever >100.4 F Diphenhydramine HCl (Benadryl) 25 mg IVP Q4H PRN PRN Reason: Allergy symptoms Diphenhydramine HCl (Benadryl) 25 mg IVP Q12H [facility] Last Admin: 08/20/18 09:11 Dose: 25 mg Morphine Sulfate (Morphine Coat Finisher 1 Mg/Ml) 30 mls @ 5 mls/hr IV PRN PRN; 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 ORDER Last Admin: 08/20/18 06:08 Dose: 5 mg/hr, 5 mls/hr Lorazepam (Ativan) 1 mg IVP BID ANGELES; Protocol Last Admin: 08/20/18 09:10 Dose: 1 mg Lorazepam (Ativan) 1 mg IVP Q8H PRN; 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 Reason: Anxiety Scopolamine (Transderm-Scop) 1 patch TD Q3D [facility] Last Admin: 08/19/18 15:19 Dose: 1 patch - Additional Findings Additional findings: - Constitutional Appears: No Acute Distress - Head Exam Head Exam: ATRAUMATIC, NORMOCEPHALIC - Eye Exam Eye Exam: EOMI, Normal appearance - ENT Exam ENT Exam: Mucous Membranes Moist - Respiratory Exam Respiratory Exam: Clear to Ausculation Bilateral, NORMAL BREATHING PATTERN - Cardiovascular Exam Cardiovascular Exam: +S1, +S2. absent: REGULAR RHYTHM - GI/Abdominal Exam GI & Abdominal Exam: Soft. absent: Distended, Firm, Rigid - Extremities Exam Extremities Exam: Pedal Edema Additional comments: edema in upper extremities bilaterally - Neurological Exam Neurological Exam: absent: Alert, Awake, Oriented x3 - Skin Skin Exam: Dry, Intact, Normal Color, Warm Assessment and Plan - Assessment and Plan (Free Text) Assessment: Patient is a 77 yo F with known PMH of HTN, DM2, and OA who presents to ED with family for altered mental status and hallucinations/delusions, found to have NSTEMI, bilateral ischemic CVAs, LGIB, now admitted to hospice. Plan: Delirium 2/2 watershed stroke GI Bleed 2/2 Crohn's Flare LISETTE Afib with RVR NSTEMI HTN DM II - Now a hospice patient as of 08/16 - medications and labs discontinued - Continue 4 mg/hr morphine drip will add bolus PRN if pain still not controlled with changed morphine dose - Continue scopalamine patch - Continue benadryl 25 IVP Q4H PRN - Continue ativan 1 mg BID IVP - Continue ativan 0.5 mg Q8H PRN for agitation - Continue with tylenol 650 mg rectal PRN - liquid diet as tolerated Case discussed with Dr. Elvi White PGY-1 <Baron Boles - Last Filed: 08/20/18 15:22> Objective - Vital Signs/Intake and Output Vital Signs (last 24 hours): Temp Pulse Resp BP Pulse Ox 98.2 F 78 16 99/66 L 08/16/18 17:56 08/16/18 17:56 08/16/18 17:56 08/16/18 17:56 Intake and Output: 08/20/18 08/20/18 06:59 18:59 Intake Total 60 Balance 60 - Medications Medications: Current Medications Acetaminophen (Tylenol 650 Mg Supp) 650 mg RC Q6H PRN PRN Reason: Fever >100.4 F Diphenhydramine HCl (Benadryl) 25 mg IVP Q4H PRN PRN Reason: Allergy symptoms Diphenhydramine HCl (Benadryl) 25 mg IVP Q12H [facility] Last Admin: 08/20/18 09:11 Dose: 25 mg Morphine Sulfate (Morphine Coat Finisher 1 Mg/Ml) 30 mls @ 5 mls/hr IV PRN PRN; 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 ORDER Last Admin: 08/20/18 06:08 Dose: 5 mg/hr, 5 mls/hr Lorazepam (Ativan) 1 mg IVP BID ANGELES; Protocol Last Admin: 08/20/18 09:10 Dose: 1 mg Lorazepam (Ativan) 1 mg IVP Q8H PRN; 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 Reason: Anxiety Scopolamine (Transderm-Scop) 1 patch TD Q3D [facility] Last Admin: 08/19/18 15:19 Dose: 1 patch Attending/Attestation - Attestation I have personally seen and examined this patient.: Yes I have fully participated in the care of the patient.: Yes I have reviewed all pertinent clinical information, including history, physical exam and plan: Yes Notes (Text): 08/20/18 15:22 Patient is on comfort measures, continue supportive care . Prognosis is guarded.
[2018-08-20 16:04] VITALS: BP 99/66; PULSE 78; RESP 16; TEMP 98.2
[2018-08-21] MEDS: Morphine PCA 1 mg/ml (30ml) 30 ML IV PRN ×2 (04:38→11:01)
[2018-08-21] MEDS: DiphenhydrAMINE 50 mg/ml Inj IVP SCH ×2 (10:58→21:09)
--- NOTE | 2018-08-21 12:52 | CP.PCM.PN ---
<Emily White L - Last Filed: 08/21/18 13:09> Subjective - Date & Time of Evaluation Date of Evaluation: 08/21/18 Time of Evaluation: 07:30 - Subjective Subjective: Resident Progress Note for Hospitalist Service Patient examined at bedside. No acute events overnight. Patient is hospice and receiving comfort measures. Patient's mentation is unchanged from prior. Objective - Vital Signs/Intake and Output Vital Signs (last 24 hours): Temp Pulse Resp BP Pulse Ox 98.2 F 78 16 99/66 L 08/16/18 17:56 08/16/18 17:56 08/16/18 17:56 08/16/18 17:56 Intake and Output: 08/21/18 08/21/18 06:59 18:59 Intake Total 60 30 Balance 60 30 - Medications Medications: Current Medications Acetaminophen (Tylenol 650 Mg Supp) 650 mg RC Q6H PRN PRN Reason: Fever >100.4 F Diphenhydramine HCl (Benadryl) 25 mg IVP Q4H PRN PRN Reason: Allergy symptoms Diphenhydramine HCl (Benadryl) 25 mg IVP Q12H [facility] Last Admin: 08/21/18 10:58 Dose: 25 mg Morphine Sulfate (Morphine Quality Lead 1 Mg/Ml) 30 mls @ 5 mls/hr IV PRN PRN; 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 Reason: INTERNAL CONTROL ANALYST PER MD ORDER Last Admin: 08/21/18 11:01 Dose: 5 mg/hr, 5 mls/hr Lorazepam (Ativan) 1 mg IVP BID ANGELES; Protocol Last Admin: 08/21/18 10:58 Dose: 1 mg Lorazepam (Ativan) 1 mg IVP Q8H PRN; 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 Reason: Anxiety Scopolamine (Transderm-Scop) 1 patch TD Q3D [facility] Last Admin: 08/19/18 15:19 Dose: 1 patch - Additional Findings Additional findings: - Constitutional Appears: No Acute Distress - Head Exam Head Exam: ATRAUMATIC, NORMOCEPHALIC - Eye Exam Eye Exam: EOMI, Normal appearance - ENT Exam ENT Exam: Mucous Membranes Moist - Respiratory Exam Respiratory Exam: Clear to Ausculation Bilateral, NORMAL BREATHING PATTERN - Cardiovascular Exam Cardiovascular Exam: +S1, +S2. absent: REGULAR RHYTHM - GI/Abdominal Exam GI & Abdominal Exam: Soft. absent: Distended, Firm, Rigid - Extremities Exam Extremities Exam: Pedal Edema Additional comments: edema in upper extremities bilaterally - Neurological Exam Neurological Exam: absent: Alert, Awake, Oriented x3 - Skin Skin Exam: Dry, Intact, Normal Color, Warm Assessment and Plan - Assessment and Plan (Free Text) Assessment: Patient is a 77 yo F with known PMH of HTN, DM2, and OA who presents to ED with family for altered mental status and hallucinations/delusions, found to have NSTEMI, bilateral ischemic CVAs, LGIB, now admitted to hospice. Plan: Delirium 2/2 watershed stroke GI Bleed 2/2 Crohn's Flare LISETTE Afib with RVR NSTEMI HTN DM II - Now a hospice patient as of 08/16 - medications and labs discontinued - Continue 4 mg/hr morphine drip will add bolus PRN if pain still not controlled with changed morphine dose - Continue scopalamine patch - Continue benadryl 25 IVP Q4H PRN - Continue ativan 1 mg BID IVP - Continue ativan 0.5 mg Q8H PRN for agitation - Continue with tylenol 650 mg rectal PRN - liquid diet as tolerated Case discussed with Dr. Elvi White PGY-1 <Baron Boles - Last Filed: 08/22/18 15:22> Objective - Vital Signs/Intake and Output Vital Signs (last 24 hours): Temp Pulse Resp BP Pulse Ox 98.2 F 78 16 99/66 L 08/16/18 17:56 08/16/18 17:56 08/16/18 17:56 08/16/18 17:56 Attending/Attestation - Attestation I have personally seen and examined this patient.: Yes I have fully participated in the care of the patient.: Yes I have reviewed all pertinent clinical information, including history, physical exam and plan: Yes
--- NOTE | 2018-08-21 14:43 | CP.PCM.PN ---
Subjective - Date & Time of Evaluation Date of Evaluation: 08/21/18 Time of Evaluation: 14:00 - Subjective Subjective: unresponsive, pupils fixed, agonal breathing pattern, lower extremities cool Objective - Vital Signs/Intake and Output Vital Signs (last 24 hours): Temp Pulse Resp BP Pulse Ox 98.2 F 78 16 99/66 L 08/16/18 17:56 08/16/18 17:56 08/16/18 17:56 08/16/18 17:56 Intake and Output: 08/21/18 08/21/18 06:59 18:59 Intake Total 60 30 Balance 60 30 - Medications Medications: Current Medications Acetaminophen (Tylenol 650 Mg Supp) 650 mg RC Q6H PRN PRN Reason: Fever >100.4 F Diphenhydramine HCl (Benadryl) 25 mg IVP Q4H PRN PRN Reason: Allergy symptoms Diphenhydramine HCl (Benadryl) 25 mg IVP Q12H [facility] Last Admin: 08/21/18 10:58 Dose: 25 mg Morphine Sulfate (Morphine Vibration Technician 1 Mg/Ml) 30 mls @ 5 mls/hr IV PRN PRN; 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 MD ORDER Last Admin: 08/21/18 11:01 Dose: 5 mg/hr, 5 mls/hr Lorazepam (Ativan) 1 mg IVP BID [facility]; Protocol Last Admin: 08/21/18 10:58 Dose: 1 mg Lorazepam (Ativan) 1 mg IVP Q8H PRN; 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 Reason: Anxiety Scopolamine (Transderm-Scop) 1 patch TD Q3D [facility] Last Admin: 08/19/18 15:19 Dose: 1 patch - Constitutional Appears: Cachectic, Chronically Ill - Eye Exam Pupil Exam: Fixed - ENT Exam ENT Exam: Mucous Membranes Dry - Neck Exam Neck Exam: Normal Inspection - Respiratory Exam Respiratory Exam: Decreased Breath Sounds Additional comments: irregular breathing pattern - GI/Abdominal Exam GI & Abdominal Exam: Hypoactive Bowel Sounds - Extremities Exam Extremities Exam: Pedal Edema Additional comments: lower extremities cool, mild mottling - Skin Skin Exam: Dry, Pallor Assessment and Plan - Assessment and Plan (Free Text) Assessment: 77 year old female with history of dementia, hallucinations, GI bleed, A fib, multiple CVA's who is under [facility] services for pain and symptom management Plan: Morphine 5 mg/hr continuos infusion Ativan 1 mg IV every 12 hours and PRN Benadryl 25 mg IV twice daily and PRN Tylenol 650 mg RC as needed for fever over 100 F
[2018-08-22] MEDS: Morphine PCA 1 mg/ml (30ml) 30 ML IV PRN (00:54)
--- NOTE | 2018-08-22 06:53 | CP.PCM.PRO ---
<Anoop Inman - Last Filed: 08/22/18 06:59> Pronouncement of Note - Clinical Findings Physical Exam: No Response Verbal/Painful Stimuli, Absent Heart & Breath Sounds, No Pupillary Light Reflex, No Corneal Reflex, Pupils Fixed & Dilated, Absence of Vital Signs - Pronouncement Time Time of Pronouncement of : 06:11 - Notifications Pronouncement Notifications: Family Notified, Atending Notified [employer] Operator Notified: No - Autopsy Autopsy Requested: No - [place] [id number] <Baron Boles - Last Filed: 08/22/18 15:21> Attending/Attestation - Attestation I have personally seen and examined this patient.: Yes I have fully participated in the care of the patient.: Yes I have reviewed all pertinent clinical information: Yes
--- NOTE | 2018-08-22 13:32 | CP.PCM.DIS ---
<Emily White L - Last Filed: 08/23/18 22:36> Provider - Provider Date of Admission: 08/16/18 14:51 Attending physician: Baron Boles MD Consults: 08/16/18 18:24 Nursing Referral for Wound Care Routine Comment: Physician Instructions: Reason For Exam: scarum reddness 08/18/18 13:23 Palliative Care Consult Routine Comment: Consulting Provider: Suzy Martin Physician Instructions: Reason For Exam: Hospice Dr. Krysta Mckeon Time Spent in preparation of Discharge (in minutes): 45 Diagnosis - Discharge Diagnosis (1) Elevated troponin Status: Acute (2) Ischemic stroke Status: Acute (3) NSTEMI (non-ST elevated myocardial infarction) Status: Acute Hospital Course - Hospital Course Hospital Course: On admission: Ms. Arango is a 77 yo F with known PMH of HTN, DM2, and OA who presents to ED with family for altered mental status and hallucinations /delusions. Most of history was obtained from prior records as family was not at bedside at the time of my examination. Per family, Ms. Arango had no significant dementia at baseline but suddenly began having worsening delusions this AM. Her daughter in law stated that patient believed that she was being evicted and all the people around her are "in on it." They brought her in to her regular neurologist, Dr. Dougherty who she did not recognize and stated was not her physician. At time of examination, she denied KELLY, blurred vision, CP, SOB, and nausea/vomiting/abdominal pain. Hospital course: Patient was found to have multiple small cortical and subcortical infarcts in both hemispheres on MRI brain. She was also found to have possible NSTEMI. She was started on aspirin and plavix which were later discontinue secondary to rectal bleeding which resolved. She was later started on eliquis for new onset afib with rvr, after discussing risks and benefits with daughter, but this was also discontinued secondary to recurrent GI bleed. GI was following for Crohn's flare and started patient on rowasa, pentasa and prednisone. She is s/p flexible sigmoidoscopy and endoscopy with findings consistent with Crohn's disease. Repeat MRI showed new small 5 mm cortical infarct in the right posterior frontal lobe and dopplers showed LLE DVTs. Patient's prognosis was discussed with family and decision was made to admit patient under hospice. Comfort measures were provided. Patient on 08/22/2018 and was pronounced at 06:11. Please refer to EMR for full summary. - Date & Time of H&P Date of H&P: 07/28/18 Time of H&P: 22:03 Discharge Exam - Additional Findings Additional findings: - Constitutional Appears: Cachectic, Chronically Ill - Eye Exam Pupil Exam: Fixed - ENT Exam ENT Exam: Mucous Membranes Dry - Neck Exam Neck Exam: Normal Inspection - Cardiovascular Exam Cardiovascular Exam: Asystole - Respiratory Exam Respiratory Exam: Apnea - GI/Abdominal Exam GI & Abdominal Exam: Absent Bowel Sounds - Extremities Exam Extremities Exam: Pedal Edema Additional comments: lower extremities cool, mild mottling - Skin Skin Exam: Dry, Pallor Discharge Plan - Follow Up Plan Condition: Disposition: WITH WITHOUT AUTOPSY <Baron Boles - Last Filed: 08/24/18 13:07> Provider - Provider Date of Admission: 08/16/18 14:51 Attending physician: Milagros Quevedo MD Consults: 08/16/18 18:24 Nursing Referral for Wound Care Routine Comment: Physician Instructions: Reason For Exam: scarum reddness 08/18/18 13:23 Palliative Care Consult Routine Comment: Consulting Provider: Suzy Martin Physician Instructions: Reason For Exam: Hospice Attending/Attestation - Attestation I have personally seen and examined this patient.: Yes I have fully participated in the care of the patient.: Yes I have reviewed all pertinent clinical information, including history, physical exam and plan: Yes
== END 2018-08-22 06:00 | DRG 951 ==
LOC: ICU 14:51 → CCU 08-17 10:18 → 5RSO 08-18 02:15
PROVIDERS: ADMIT Internal Medicine; ATTEND Internal Medicine
PROC: 3E033GC Introduction of Other Therapeutic Substance into Peripheral Vein, Percutaneous Approach (ICD-10-PCS; principal; 2018-08-16)
DX: Z51.5 Encounter for palliative care (principal); I63.9 Cerebral infarction, unspecified; I21.4 Non-ST elevation (NSTEMI) myocardial infarction; K50.911 Crohn's disease, unspecified, with rectal bleeding; N17.9 Acute kidney failure, unspecified; I82.4Z2 Acute embolism and thrombosis of unspecified deep veins of left distal lower extremity; E11.9 Type 2 diabetes mellitus without complications; F03.90 Unspecified dementia, unspecified severity, without behavioral disturbance, psychotic disturbance, mood disturbance, and anxiety; I10 Essential (primary) hypertension; I48.91 Unspecified atrial fibrillation; J44.9 Chronic obstructive pulmonary disease, unspecified; M19.90 Unspecified osteoarthritis, unspecified site; Z96.652 Presence of left artificial knee joint; Z87.891 Personal history of nicotine dependence